=== PATIENT | female | born 1965 | race Caucasian/White ===

== ENCOUNTER 2017-06-05 12:50 | Outpatient (RCR) | payer OTHER, SELFPAY | END 2017-06-20 23:59 | LOC: NS 12:50 | PROVIDERS: Family Provider Family Medicine; PCP Family Medicine; Visit Provider Family Medicine | DX: E66.01 Morbid (severe) obesity due to excess calories (principal); Z68.41 Body mass index [BMI] 40.0-44.9, adult; Z71.3 Dietary counseling and surveillance | CPT/HCPCS: 97802 ==

== ENCOUNTER 2017-06-26 16:28 | Outpatient (RCR) | payer OTHER, SELFPAY | END 2017-06-26 16:29 | LOC: NS 16:28 | PROVIDERS: Family Provider Family Medicine; PCP Family Medicine; Visit Provider Family Medicine | DX: E66.01 Morbid (severe) obesity due to excess calories (principal); Z68.41 Body mass index [BMI] 40.0-44.9, adult; Z71.3 Dietary counseling and surveillance | CPT/HCPCS: 97803 ==

== ENCOUNTER → 2017-11-28 07:03 | Outpatient (CLI) | payer OTHER, SELFPAY ==
[2017-11-28 10:29] LABS: Absolute Lymphocyte Count 1.17 X10^3/ul (0.83-4.51); Absolute Neutrophil Count 3.6 X10^3/uL (2.0-7.7); Basophil# 0.04 X10^3/uL; Basophil% 0.7 % (0-1); Eosinophil# 0.35 X10^3/uL; Eosinophils% 6.4 % (0-5); Hematocrit 42.2 % (37-47); Hemoglobin 14.2 g/dl (12.0-15.0); Lymphocyte # 1.17 X10^3/ul (4.0); Lymphocyte % 21.5 % (19-41); Mean Corp Hgb Conc 33.6 g/gl (32-36); Mean Corpuscular Hgb 31.2 pg (27.0-32.0); Mean Corpuscular Volume 92.7 fL (81-99); Mean Platelet Vol. 10.2 fl (6.2-12.0); Monocyte% 5.5 % (0-10); Neutrophil # 3.57 X10^3/uL (2.7-7.7); Neutrophil % 65.7 % (47-70); Platelet Count 227 K/mm3 (150-450); RBC Distribution Width CV 12.8 % (11.6-14.6); RBC Distribution Width SD 42.5 fl (35.1-43.9); Red Blood Count 4.55 M/mm3 (4.2-5.4); White Blood Count 5.4 K/mm3 (4.4-11.0)
[2017-11-28 10:34] LABS: POSITIVE COUNT NO; POSITIVE DIFFERENTIAL NO; POSITIVE MORPHOLOGY NO
== END ==
PROVIDERS: Family Provider Family Medicine; PCP Family Medicine; Visit Provider Family Medicine
DX: I10 Essential (primary) hypertension (principal); E78.5 Hyperlipidemia, unspecified
CPT/HCPCS: 36415; 85025

== ENCOUNTER → 2018-02-28 16:44 | Outpatient (CLI) | payer OTHER, SELFPAY ==
--- NOTE | 2018-02-28 16:47 | BI_ITS ---
MAMMOGRAPHY - BILATERAL SCREENING REASON FOR EXAM: Female, 52 years old. Routine annual screening examination. PERTINENT HISTORY: Non-contributory. TECHNIQUE: Digital bilateral breast sulaiman (3D mammographic acquisition) in the CC and MLO projections. 2-D mediolateral oblique (MLO) and craniocaudad (CC) views of both breasts were obtained. CAD: Full Field Digital Mammography with Computer Added Detection was performed. COMPARISON: Comparison is made with prior study dated January 30, 2017 and January 21, 2016. FINDINGS: Breast Composition: The breasts are almost entirely fatty. There are no dominant masses or suspicious calcifications. No other significant abnormalities are identified. There has been no significant change since the prior study. BI/SCREENING MAMM (CAD), BILAT IMPRESSION: Stable bilateral screening mammogram. Yearly follow-up mammogram recommended. (A) ASSESSMENT CATEGORY: BIRADS Category 1: Negative. A letter regarding these results will be sent to the patient by the facility within 30 days. Approximately 10% of breast cancers are not detected by mammography. A normal mammogram should not delay biopsy of a clinically suspicious abnormality. [id number] Electronically Signed: Jamel Sanders MD at 8:04 EST Tel [phone], Service support ,
== END ==
PROVIDERS: Family Provider Family Medicine; PCP Family Medicine; Referring Provider Family Medicine; Visit Provider Family Medicine
DX: Z12.31 Encounter for screening mammogram for malignant neoplasm of breast (principal)
CPT/HCPCS: 77063; 77067

== ENCOUNTER 2018-08-05 23:20 | Emergency (ER) | payer OTHER, SELFPAY ==
[2018-05-15 06:45] VITALS: BMI 41.8
[2018-08-05 23:21] VITALS: BP 143/86; PULSE 98; RESP 16; TEMP 37; O2SAT 98; BMI 43.8
--- NOTE | 2018-08-05 23:50 | ED.DCSUM_ITS ---
- ER Visit Summary Date of Service: 08/05/18 Chief Complaint: Abdominal pain History of Present Illness: The patient is a 53 F presenting with left lower quadrant abdominal pain. She states this started yesterday. She has history of diverticulitis and states this feels similar. She has history of previous colon resection due to perforation and abscess in 2008. She denies nausea or vomiting. Denies diarrhea or constipation. Denies fever. Denies urinary complaints. Denies other symptoms. Physical Examination: Vitals are stable. Patient is afebrile. Alert no acute distress. HEENT exam is unremarkable. Neck is supple. Lungs are clear and equal bilaterally. Heart is regular rate and rhythm. Abdomen is soft left lower quadrant tenderness with no rebound or guarding Extremities are unremarkable. Skin is warm and dry. Remainder of exam is unremarkable. Emergency Department Course and Treatment: Patient was given Dilaudid, Zofran, IV fluids. CBC, chemistries unremarkable. CT abdomen pelvis is pending at this time and will be checked out to the nighttime physician. Disposition: Pending CT results Impression: Abdominal pain This note was generated with [employer] dictation software. It may contain incorrect words, spelling, and punctuation that were not noted in review of the chart prior to signing ED Disposition - Plan for ED Patient: Referrals: Ernesto Quigley MD [Primary Care Provider] -
[2018-08-05] MEDS: 0.9% Normal Saline 1,000 ML 1000 ML IV (23:56)
[2018-08-05] MEDS: Ondansetron 4 MG/2 ML Vial IV (23:56)
[2018-08-06] MEDS: HYDROmorphone 1 MG/ML Syringe IV (00:02)
[2018-08-06 00:16] LABS: Absolute Lymphocyte Count 1.53 X10^3/ul (0.83-4.51); Absolute Neutrophil Count 5.7 X10^3/uL (2.0-7.7); Basophil# 0.02 X10^3/uL; Basophil% 0.2 % (0-1); Eosinophil# 0.43 X10^3/uL; Eosinophils% 5.3 % (0-5); Hematocrit 41.9 % (37-47); Hemoglobin 14.4 g/dl (12.0-15.0); Lymphocyte # 1.53 X10^3/ul (4.0); Lymphocyte % 18.8 % (19-41); Mean Corp Hgb Conc 34.4 g/gl (32-36); Mean Corpuscular Hgb 30.6 pg (27.0-32.0); Mean Corpuscular Volume 89.1 fL (81-99); Mean Platelet Vol. 10.2 fl (6.2-12.0); Monocyte# 0.51 X10^3/uL; Monocyte% 6.3 % (0-10); Neutrophil # 5.65 X10^3/uL (2.7-7.7); Neutrophil % 69.3 % (47-70); Platelet Count 203 K/mm3 (150-450); RBC Distribution Width CV 12.6 % (11.6-14.6); RBC Distribution Width SD 40.1 fl (35.1-43.9); White Blood Count 8.2 K/mm3 (4.4-11.0)
[2018-08-06 00:25] LABS: POSITIVE COUNT NO; POSITIVE DIFFERENTIAL NO; POSITIVE MORPHOLOGY NO
[2018-08-06 00:33] LABS: Anion Gap 3 (5-15); BUN 10 mg/dL (7-18); BUN/Creat Ratio 13.4 RATIO (10-20); Chloride 105 mmol/L (98-107); Creatinine, Serum 0.75 mg/dL (0.55-1.02); EST Glomerular Filtration Rate 85 mL/min (>60); Est Glom Filt Rate - Afr Amer 103 mL/min (>60); Estimated Creatinine Clearance 82.42 ml/min; Glucose 97 mg/dL (74-106); Sodium Level 139 mmol/L (136-145)
[2018-08-06] MEDS: HYDROmorphone 0.5 MG/0.5 ML SYRINGE IV (00:37)
[2018-08-06 00:52] LABS: Mucous, Urine 0 SEEN /hpf (<or=2+); White Blood Cells 0 SEEN /hpf (0-5)
[2018-08-06 00:56] LABS: Color, Urine Yellow (Yellow); Glucose, Dipstick Normal (Normal); Ketone-Dipstick Negative (Negative); Leukocyte Esterase-Dipstick Negative /ul (Negative); Nitrite-Dipstick Negative (Negative); Occult Blood-Urine 10 /ul (Negative); Protein-Dipstick Negative (Negative); Urine Bilirubin Dipstick Negative (Negative); Urine Clarity Sl. Cloudy (Clear); Urine Urobilinogen Normal (Normal)
[2018-08-06 01:12] LABS: Bacteria RARE /hpf (None Seen); Red Blood Cells-Urine 0-5 SEEN /hpf (0-5); Squamous Epithelial Cells - UA 0-5 SEEN /hpf (5-10)
[2018-08-06] MEDS: Ondansetron 4 MG/2 ML Vial IV (01:16)
[2018-08-06 02:18] VITALS: RESP 18
--- NOTE | 2018-08-06 02:18 | ED.VISSUMM ---
- ER Visit Summary Date of Service: 08/06/18 Chief Complaint: [] History of Present Illness: The patient is a 53 F [] Physical Examination: [] Test Results: [] Emergency Department Course and Treatment: [] Treatment Plan: [] Disposition: [] Impression: [] This note was generated with [employer] dictation software. It may contain incorrect words, spelling, and punctuation that were not noted in review of the chart prior to signing ED Disposition - Plan for ED Patient: Disposition: Home or Assisted Living Instructions: ED Abdominal Pain Unkn Cause Prescriptions: Dicyclomine HCl [Bentyl] 20 mg PO TIDAC #20 cap Referrals: Ernesto Quigley MD [Primary Care Provider] - 3-5 Days if not improving
[2018-08-06 02:29] VITALS: BP 127/45; PULSE 80; RESP 18; O2SAT 93
--- NOTE | 2018-08-06 02:30 | ED.RN ---
Addendum entered by Roxane Gonzáles 08/06/18 02:31: 0430 IS THE TIME PT LEAVING. Original Note: PT PLANS TO SLEEP UNTIL 4AM AND THEN DIVE HERSELF HOME SINCE SHE RECIEVED DILAUDID.
--- NOTE | 2018-08-06 23:39 | CT_ITS ---
STUDY: CT ABDOMEN AND PELVIS WITH CONTRAST REASON FOR EXAM: Female, 53 years old. Left lower quadrant pain. History of diverticulitis. RADIATION DOSAGE (If Supplied By Facility): CTDIvol = ( 17.00 ) mGy, DLP = ( 1197.95 ) mGycm TECHNIQUE: Transaxial images were obtained from the dome of the diaphragm to the symphysis pubis with oral contrast. 100ML IV/Oral Isovue 370 was administered. Sagittal and coronal images were reconstructed. Individualized dose optimization techniques were used for this CT. COMPARISON: May 11, 2017. FINDINGS: The visualized lung bases are unremarkable. The visualized portions of the heart are within normal limits. Normal liver. There are surgical clips in the gallbladder fossa consistent with a prior cholecystectomy. Normal spleen. Normal pancreas. Normal bilateral adrenal glands. Normal right kidney. Normal left kidney. Normal visualized stomach. Normal small intestine. Distal descending/proximal sigmoid colon are not well distended limiting evaluation of wall thickening coronal image 72 and axial image 60. No pericolonic inflammatory changes. The appendix is visualized and appears normal. Surgical clips left hemipelvis. There is atherosclerotic calcification of the abdominal aorta with elongation and tortuosity, but without a demonstrated aneurysm. Normal inferior vena cava. Normal retroperitoneum. No intra-abdominal free air. Normal urinary bladder. Uterus is not enlarged. No adnexal masses seen. Normal abdominal wall. Diffuse degenerative changes of the lower thoracic and lumbar spine. CT/Abdomen/Pelvis WITH Contrast IMPRESSION: Limited evaluation of the colon at the junction of the distal descending and proximal sigmoid colon. Colon is otherwise normal. No colonic pericolonic inflammatory changes. No evidence of bowel obstruction. Degenerative changes of the lower thoracic and lumbar spine. Electronically Signed: Ha Sibley MD at 2:11 EDT , Service support ,
== END 2018-08-06 04:32 | disposition home or self-care (01) ==
PROVIDERS: Emergency Provider Emergency Medicine; Family Provider Family Medicine; PCP Family Medicine
DX: R10.32 Left lower quadrant pain (principal); R11.0 Nausea; I10 Essential (primary) hypertension; K21.9 Gastro-esophageal reflux disease without esophagitis; Z90.49 Acquired absence of other specified parts of digestive tract; Z72.0 Tobacco use
CPT/HCPCS: 74177; 80048; 81001; 85025; 96361; 96374; 96375; 96376; 99285; J7030; Q9967; A4216; J2405

== ENCOUNTER → 2018-10-09 10:27 | Outpatient (CLI) | payer OTHER, SELFPAY ==
[2018-10-09 10:25] VITALS: BMI 43.8
--- NOTE | 2018-10-09 10:29 | RAD_ITS ---
STUDY: X-RAY - RIGHT ANKLE REASON FOR EXAM: Female, 53 years old. Increasing pain and medial swelling. TECHNIQUE: 3 view(s) of the ankle. COMPARISON: None. FINDINGS: Normal visualized distal tibia and fibula. Normal medial and lateral malleoli. Normal tibiotalar articulation and ankle mortise. Plantar calcaneal spur. The visualized subtalar, talonavicular, calcaneocuboid and tarsal articulations are normal. Soft tissue swelling. RAD/Ankle min 3 Views IMPRESSION: Medial soft tissue swelling. Electronically Signed: Jamel Sanders, at 10:44 EDT , Service support ,
== END ==
PROVIDERS: Family Provider Family Medicine; PCP Family Medicine; Referring Provider Physician Assistant; Visit Provider Physician Assistant
DX: S99.911A Unspecified injury of right ankle, initial encounter (principal); X58.XXXA Exposure to other specified factors, initial encounter; Y93.9 Activity, unspecified; Y92.9 Unspecified place or not applicable; Y99.9 Unspecified external cause status
CPT/HCPCS: 73610

== ENCOUNTER → 2018-12-05 07:01 | Outpatient (CLI) | payer OTHER, SELFPAY ==
[2018-10-09 10:25] VITALS: BMI 43.8
[2018-12-05 10:31] LABS: Absolute Lymphocyte Count 1.25 X10^3/uL (0.83-4.51); Absolute Neutrophil Count 3.8 X10^3/uL (2.0-7.7); Basophil# 0.04 X10^3/uL; Basophil% 0.7 % (0-1); Eosinophil# 0.45 X10^3/uL; Eosinophils% 7.5 % (0-5); Hematocrit 45.4 % (37-47); Hemoglobin 14.8 g/dL (12.0-15.0); Lymphocyte # 1.25 X10^3/ul (4.0); Lymphocyte % 20.9 % (19-41); Mean Corp Hgb Conc 32.6 g/dL (32-36); Mean Corpuscular Volume 91.9 fL (81-99); Mean Platelet Vol. 10.6 fl (6.2-12.0); Monocyte# 0.39 X10^3/uL; Monocyte% 6.5 % (0-10); NRBC Flagged by Analyzer 0 % (0-5); Neutrophil # 3.82 X10^3/uL (2.7-7.7); Neutrophil % 64.1 % (47-70); Platelet Count 209 K/mm3 (150-450); RBC Distribution Width CV 12.6 % (11.6-14.6); RBC Distribution Width SD 42.5 fl (35.1-43.9); Red Blood Count 4.94 M/mm3 (4.2-5.4)
[2018-12-05 11:21] LABS: AST(SGOT) 14 U/L (15-37); Alanine Aminotransfer ALT/SGPT 19 U/L (13-56); Albumin, Serum 3.6 g/dL (3.2-5.0); Alkaline Phosphatase 75 U/L (45-117); Anion Gap 6 (5-15); BUN 14 mg/dL (7-18); Calcium,Total 9.3 mg/dL (8.5-10.1); Chloride 103 mmol/L (98-107); Cholesterol 149 mg/dL (200); EST Glomerular Filtration Rate 92 mL/min (>60); Est Glom Filt Rate - Afr Amer 111 mL/min (>60); Globulin 3.6 g/dL (2.2-4.2); Glucose 90 mg/dL (74-106); High Density Lipoprotein 49 mg/dL; Protein, Total 7.2 g/dL (6.4-8.2); Sodium Level 140 mmol/L (136-145); Triglycerides 90 mg/dL; Very Low Density Lipoprotein 18 mg/dL (5-40)
== END ==
PROVIDERS: Family Provider Family Medicine; PCP Family Medicine; Referring Provider Family Medicine; Visit Provider Family Medicine
DX: I10 Essential (primary) hypertension (principal); E78.5 Hyperlipidemia, unspecified; K58.9 Irritable bowel syndrome, unspecified; K21.9 Gastro-esophageal reflux disease without esophagitis
CPT/HCPCS: 36415; 80053; 80061; 85025

== ENCOUNTER → 2019-03-13 16:42 | Outpatient (CLI) | payer OTHER, SELFPAY ==
[2018-10-09 10:25] VITALS: BMI 43.8
--- NOTE | 2019-03-13 16:43 | BI_ITS ---
MAMMOGRAPHY - BILATERAL SCREENING REASON FOR EXAM: Female, 53 years old. Routine annual screening examination. PERTINENT HISTORY: Non-contributory. TECHNIQUE: Digital bilateral breast clemente (3D mammographic acquisition) in the CC and MLO projections. 2-D mediolateral oblique (MLO) and craniocaudad (CC) views of both breasts were obtained. CAD: Full Field Digital Mammography with Computer Added Detection was performed. COMPARISON: Comparison is made with prior examination dated February 28, 2018 and January 30, 2017. FINDINGS: Breast Composition: The breasts are almost entirely fatty. There are no dominant masses or suspicious calcifications. No other significant abnormalities are identified. There has been no significant change since the prior study. BI/SCREEN MAMM (CAD) W/CLEMENTE BILAT IMPRESSION: Stable bilateral screening mammogram. Yearly follow-up mammogram recommended. (A) ASSESSMENT CATEGORY: BIRADS Category 1: Negative. A letter regarding these results will be sent to the patient by the facility within 30 days. Approximately 10% of breast cancers are not detected by mammography. A normal mammogram should not delay biopsy of a clinically suspicious abnormality. [id number] Electronically Signed: Jamel Sanders, at 9:58 EST , Service support ,
== END ==
PROVIDERS: Family Provider Family Medicine; PCP Family Medicine; Referring Provider Family Medicine; Visit Provider Family Medicine
DX: Z12.31 Encounter for screening mammogram for malignant neoplasm of breast (principal)
CPT/HCPCS: 77063; 77067

== ENCOUNTER 2019-04-13 14:27 | Emergency (ER) | payer OTHER, SELFPAY ==
[2018-10-09 10:25] VITALS: BMI 43.8
[2019-04-13 14:28] VITALS: BP 163/86; PULSE 115; RESP 18; TEMP 36.8; O2SAT 96; BMI 46.4
--- NOTE | 2019-04-13 14:42 | RAD_ITS ---
STUDY: X-RAY CHEST REASON FOR EXAM: Female, 53 years old. Cough TECHNIQUE: Frontal and lateral views of the chest COMPARISON: None. FINDINGS: The lungs are clear. There are no pleural effusions. There is no pneumothorax. The heart is normal in size. The visualized osseous structures are within normal limits. RAD/Chest PA and Lateral IMPRESSION: No acute thoracic pathology. Electronically Signed: Oziel Amado, at 15:43 EST Tel , Service support ,
[2019-04-13] MEDS: 0.9% Normal Saline 1,000 ML 1000 ML IV (15:02)
[2019-04-13 15:03] VITALS: BP 135/91; PULSE 91
[2019-04-13 15:32] LABS: Anion Gap 5 (5-15); BUN 14 mg/dL (7-18); BUN/Creat Ratio 11.9 RATIO (10-20); Calcium,Total 8.9 mg/dL (8.5-10.1); Chloride 105 mmol/L (98-107); Creatinine, Serum 1.18 mg/dL (0.55-1.02); EST Glomerular Filtration Rate 50 mL/min (>60); Est Glom Filt Rate - Afr Amer 61 mL/min (>60); Estimated Creatinine Clearance 48.47 ml/min; Glucose 127 mg/dL (74-106); Potassium 3.5 mmol/L (3.5-5.1); Sodium Level 141 mmol/L (136-145)
[2019-04-13 15:44] LABS: Absolute Lymphocyte Count 1.37 X10^3/uL (0.83-4.51); Absolute Neutrophil Count 5.6 X10^3/uL (2.0-7.7); Basophil# 0.05 X10^3/uL; Basophil% 0.6 % (0-1); Eosinophil# 0.26 X10^3/uL; Eosinophils% 3.4 % (0-5); Hematocrit 43.6 % (37-47); Hemoglobin 14.4 g/dL (12.0-15.0); Lymphocyte # 1.37 X10^3/ul (4.0); Lymphocyte % 17.7 % (19-41); Mean Corpuscular Hgb 30.1 pg (27.0-32.0); Mean Corpuscular Volume 91.2 fL (81-99); Mean Platelet Vol. 10.2 fl (6.2-12.0); Monocyte# 0.41 X10^3/uL; Monocyte% 5.3 % (0-10); NRBC Flagged by Analyzer 0 % (0-5); Neutrophil # 5.64 X10^3/uL (2.7-7.7); Neutrophil % 72.9 % (47-70); Platelet Count 231 K/mm3 (150-450); RBC Distribution Width CV 12.1 % (11.6-14.6); RBC Distribution Width SD 40.8 fl (35.1-43.9); Red Blood Count 4.78 M/mm3 (4.2-5.4); White Blood Count 7.7 K/mm3 (4.4-11.0)
--- NOTE | 2019-04-13 16:22 | ED.VISSUMM ---
- ER Visit Summary Date of Service: 04/13/19 Chief Complaint: Not feeling well History of Present Illness: The patient is a 53 F who presents with not feeling well for the past week. Patient states that is gradually gotten worse. Patient states she feels shaky and off balance. Patient admits to some subjective chills but denies any fevers. Patient admits to a cough. Patient states she has been having some nausea but denies any vomiting. Patient states she has some pain in her shoulders and in her neck. Patient states she feels weak and lightheaded at times. Physical Examination: Vital signs are stable. Patient is afebrile. Patient is in no acute distress. Oral mucosa is pink and moist. Neck is supple. Trachea is midline. There is no JVD. Heart was regular rate and rhythm. Lungs are clear and equal bilaterally. Abdomen is soft. Bowel sounds are normal. There is no tenderness. Cranial nerves II through XII are intact. There are no focal motor or sensory deficits noted. Test Results: CBC and basic metabolic profile were within normal limits. PA and lateral chest x-ray was obtained. There is no acute cardiopulmonary process. This is interpreted by the radiologist and myself. Emergency Department Course and Treatment: Patient was advised of the results. Patient was instructed to follow-up with her primary care physician in 5 to 7 days. Patient was instructed to drink plenty of fluids. Patient understood and was agreeable with the plan. All questions were answered. Disposition: Discharge home Impression: Viral illness This note was generated with [employer] dictation software. It may contain incorrect words, spelling, and punctuation that were not noted in review of the chart prior to signing ED Disposition - Plan for ED Patient: Disposition: Home or Assisted Living Diagnosis: Viral illness Instructions: VIRAL SYNDROME (Adult) Referrals: Ernesto Quigley MD [Primary Care Provider] - 5-7 Days
== END 2019-04-13 16:35 | disposition home or self-care (01) ==
PROVIDERS: Emergency Provider Emergency Medicine; Family Provider Family Medicine; PCP Family Medicine
DX: B34.9 Viral infection, unspecified (principal); R05 Cough; R11.0 Nausea; R42 Dizziness and giddiness; I10 Essential (primary) hypertension; M54.2 Cervicalgia; M25.512 Pain in left shoulder; M25.511 Pain in right shoulder; K21.9 Gastro-esophageal reflux disease without esophagitis; E66.9 Obesity, unspecified; Z72.0 Tobacco use
CPT/HCPCS: 71046; 80048; 85025; 96360; 96361; 99283; J7030

== ENCOUNTER 2019-04-25 17:03 | Emergency (ER) | payer OTHER, SELFPAY ==
[2019-04-25 17:04] VITALS: BP 163/86; PULSE 91; RESP 16; TEMP 36.4; O2SAT 98; BMI 46.1
[2019-04-25 18:19] VITALS: BP 139/71; PULSE 79; RESP 18; O2SAT 96
--- NOTE | 2019-04-25 18:25 | EKG12_ITS ---
Test Reason : GEN ILL Blood Pressure : / mmHG Vent. Rate : 071 BPM Atrial Rate : 071 BPM P-R Int : 154 ms QRS Dur : 082 ms QT Int : 406 ms P-R-T Axes : 047 011 041 degrees QTc Int : 441 ms Normal sinus rhythm Normal ECG Confirmed by MELONY GOMEZ, PANDA ([id number]), news copy editor MICHAEL CRABTREE ([id number]) on 04/28/2019 12:54:58 PM Referred By: Confirmed By:PANDA TY MD
--- NOTE | 2019-04-25 18:33 | ED.RN ---
NO OLDS EKGS IN MUSE
--- NOTE | 2019-04-25 18:44 | ED.VISSUMM ---
- ER Visit Summary Date of Service: 04/25/19 Chief Complaint: Nausea History of Present Illness: The patient is a 53 F presenting with nausea. Patient states she was seen in the ED on April 13. At that time she was diagnosed with a viral syndrome. She states that her symptoms have continued. She complains of cough, nausea. She has had diarrhea. She denies vomiting. Denies abdominal pain. Denies chest pain or shortness of breath. She states she overall just does not feel well. Denies other complaints. Physical Examination: Vitals are stable. Patient is afebrile. Alert no acute distress. HEENT exam is unremarkable. Neck is supple. Lungs are clear and equal bilaterally. Heart is regular rate and rhythm. Abdomen is soft nontender nondistended. No guarding or rebound Extremities are unremarkable. Skin is warm and dry. No focal neurologic deficit. Remainder of exam is unremarkable. Emergency Department Course and Treatment: EKG is sinus rhythm rate of 71 with no acute ischemic changes. Patient was given IV fluids, Zofran. CBC, chemistries unremarkable. Liver lipase are normal. Urinalysis unremarkable. Troponin is negative. Abdominal x-ray shows question early or incomplete small bowel obstruction. CT abdomen pelvis shows colonic diverticulosis with small hiatal hernia. No sign of bowel obstruction. On reevaluation, patient is resting comfortably. She is given a prescription for Zofran for home. She is advised to follow up with her primary care physician. Advised return to ED if worsening complaints. Disposition: Discharge home Impression: Nausea, diarrhea This note was generated with [employer] dictation software. It may contain incorrect words, spelling, and punctuation that were not noted in review of the chart prior to signing ED Disposition - Plan for ED Patient: Instructions: DIARRHEA, Viral (Child) (Adult) Prescriptions: Ondansetron [Zofran Odt] 4 mg PO Q8H PRN PRN #10 tab PRN Reason: Nausea Prescription Printed Referrals: Ernesto Quigley MD [Primary Care Provider] -
[2019-04-25] MEDS: Ondansetron 4 MG/2 ML Vial IV (18:45)
[2019-04-25 19:00] LABS: Bacteria 0 SEEN /hpf (None Seen); Mucous, Urine 0 SEEN /hpf (<or=2+); White Blood Cells 0 SEEN /hpf (0-5)
[2019-04-25 19:14] LABS: Absolute Lymphocyte Count 1.61 X10^3/uL (0.83-4.51); Absolute Neutrophil Count 6.6 X10^3/uL (2.0-7.7); Basophil# 0.04 X10^3/uL; Basophil% 0.4 % (0-1); Eosinophil# 0.23 X10^3/uL; Eosinophils% 2.6 % (0-5); Hematocrit 46.1 % (37-47); Hemoglobin 15.4 g/dL (12.0-15.0); Lymphocyte # 1.61 X10^3/ul (4.0); Lymphocyte % 17.9 % (19-41); Mean Corp Hgb Conc 33.4 g/dL (32-36); Mean Corpuscular Volume 89.9 fL (81-99); Mean Platelet Vol. 9.8 fl (6.2-12.0); Monocyte# 0.49 X10^3/uL; Monocyte% 5.4 % (0-10); NRBC Flagged by Analyzer 0 % (0-5); Neutrophil # 6.61 X10^3/uL (2.7-7.7); Neutrophil % 73.5 % (47-70); Platelet Count 242 K/mm3 (150-450); RBC Distribution Width CV 12.2 % (11.6-14.6); RBC Distribution Width SD 40.4 fl (35.1-43.9); Red Blood Count 5.13 M/mm3 (4.2-5.4)
[2019-04-25 19:15] LABS: Color, Urine Yellow (Yellow); Glucose, Dipstick Normal (Normal); Ketone-Dipstick Negative (Negative); Leukocyte Esterase-Dipstick Negative /ul (Negative); Nitrite-Dipstick Negative (Negative); Occult Blood-Urine 10 /ul (Negative); Protein-Dipstick Negative (Negative); Urine Bilirubin Dipstick Negative (Negative); Urine Clarity Sl. Cloudy (Clear); Urine Urobilinogen Normal (Normal)
[2019-04-25 19:26] LABS: ALB/GLOB Ratio 1.1 RATIO (0.9-2.4); AST(SGOT) 17 U/L (15-37); Alanine Aminotransfer ALT/SGPT 22 U/L (13-56); Albumin, Serum 4.1 g/dL (3.2-5.0); Alkaline Phosphatase 68 U/L (45-117); Anion Gap 7 (5-15); BUN 13 mg/dL (7-18); BUN/Creat Ratio 14.9 RATIO (10-20); Calcium,Total 9.4 mg/dL (8.5-10.1); Chloride 101 mmol/L (98-107); Creatinine, Serum 0.87 mg/dL (0.55-1.02); EST Glomerular Filtration Rate 71 mL/min (>60); Est Glom Filt Rate - Afr Amer 86 mL/min (>60); Estimated Creatinine Clearance 65.74 ml/min; Globulin 3.7 g/dL (2.2-4.2); Glucose 102 mg/dL (74-106); Lipase 71 U/L (73-393); Potassium 3.8 mmol/L (3.5-5.1); Protein, Total 7.8 g/dL (6.4-8.2); Sodium Level 136 mmol/L (136-145)
[2019-04-25 19:29] LABS: Red Blood Cells-Urine 0-5 SEEN /hpf (0-5); Squamous Epithelial Cells - UA 0-5 SEEN /hpf (5-10)
--- NOTE | 2019-04-25 19:40 | RAD_ITS ---
STUDY: X-RAY - ACUTE ABDOMINAL SERIES REASON FOR EXAM: Female, 53 years old. Diagnosed with viral syndrome on April 13. No improvement. Nausea and vomiting. History of diverticulitis with prior colon surgery. TECHNIQUE: Single view of the chest. Supine, and erect view(s) of the abdomen were obtained. COMPARISON: Chest, April 13, 2019. CT the abdomen and pelvis, August 06, 2018. FINDINGS: The lungs are clear and expanded. No new infiltrate or mass. Normal size heart. Normal mediastinum and freddy. Normal visualized pulmonary arteries. Normal visualized aortic arch and descending thoracic aorta. There is a non-specific bowel gas pattern. Air is seen throughout nondistended colon. There is dilated loops of small bowel in the central abdomen. There is no free air. The liver appears enlarged. There is evidence of prior cholecystectomy. There are diffuse degenerative changes of the visualized lumbar spine. RAD/Acute Abdomen Inc Chest IMPRESSION: Question early or incomplete small bowel obstruction. Electronically Signed: Miles Higgins DO at 20:04 EST Tel [phone], Service support ,
--- NOTE | 2019-04-25 20:40 | CT_ITS ---
STUDY: CT ABDOMEN AND PELVIS WITH CONTRAST REASON FOR EXAM: Female, 53 years old. ABD PAIN/?SBO. Hx of sigmoid resection d/t diverticulitis and cholecystectomy RADIATION DOSAGE (If Supplied By Facility): CTDIvol = ( 18.74 ) mGy, DLP = ( 1308.20 ) mGycm TECHNIQUE: Transaxial images were obtained from the dome of the diaphragm to the symphysis pubis without oral contrast. Oral and amp; IV Gastrografin and amp; 100mL Isovue-370 was administered. Sagittal and coronal images were reconstructed. Individualized dose optimization techniques were used for this CT. COMPARISON: None. FINDINGS: The visualized lung bases are unremarkable. The visualized portions of the heart are within normal limits. Normal liver. Status post cholecystectomy. No significant dilatation of the extrahepatic biliary system. Normal spleen. Normal pancreas. Normal bilateral adrenal glands. Normal right kidney. Normal left kidney. Small hiatal hernia. Normal small intestine. Mild diverticulosis of the colon. The appendix is visualized and appears normal. Calcified abdominal aorta. Normal inferior vena cava. Normal retroperitoneum. Normal urinary bladder. Normal abdominal wall. Mild degenerative vertebral changes. CT/Abdomen/Pelvis WITH Contrast IMPRESSION: Colonic diverticulosis with small hiatal hernia. No sign of bowel obstruction. Electronically Signed: Mukesh Newell DO at 23:16 EST Tel [phone], Service support ,
[2019-04-25] MEDS: proMETHazine 25 MG/ML Syringe 6.25 MG IV (20:49)
[2019-04-25 20:51] VITALS: BP 135/76; PULSE 74; RESP 18; O2SAT 95
[2019-04-25] MEDS: LORazepam 0.5 MG Tablet PO (23:01)
[2019-04-25 23:02] VITALS: RESP 18
--- NOTE | 2019-04-26 00:39 | ED.DEP ---
ED Disposition - Plan for ED Patient: Instructions: DIARRHEA, Viral (Child) (Adult) Prescriptions: Ondansetron [Zofran Odt] 4 mg PO Q8H PRN PRN #10 tablet PRN Reason: Nausea Referrals: Ernesto Quigley MD [Primary Care Provider] -
[2019-04-26 00:58] VITALS: BP 124/86; PULSE 76; RESP 18; O2SAT 92
== END 2019-04-26 01:01 | disposition home or self-care (01) ==
PROVIDERS: Emergency Provider Emergency Medicine; Family Provider Family Medicine; PCP Family Medicine
DX: R11.0 Nausea (principal); R19.7 Diarrhea, unspecified; K56.600 Partial intestinal obstruction, unspecified as to cause; K57.30 Diverticulosis of large intestine without perforation or abscess without bleeding; K44.9 Diaphragmatic hernia without obstruction or gangrene; I10 Essential (primary) hypertension; Z72.0 Tobacco use; Z79.899 Other long term (current) drug therapy
CPT/HCPCS: 74022; 74177; 80053; 81001; 83690; 84484; 85025; 87804; 93005; 96361; 96374; 96375; 99283; J7040; Q9967; A4216; J2405

== ENCOUNTER 2019-04-28 16:04 | Emergency (ER) | payer OTHER, SELFPAY ==
[2019-04-28 16:05] VITALS: BP 123/89; PULSE 89; RESP 17; TEMP 36.4; O2SAT 99; BMI 45.4
--- NOTE | 2019-04-28 17:03 | EKG12_ITS ---
Test Reason : AB PAIN Blood Pressure : / mmHG Vent. Rate : 066 BPM Atrial Rate : 066 BPM P-R Int : 158 ms QRS Dur : 082 ms QT Int : 412 ms P-R-T Axes : 028 010 042 degrees QTc Int : 431 ms Normal sinus rhythm Normal ECG Confirmed by KEYA GOMEZ, MARGARET ([id number]), senior editor DRISS PERAZA ([id number]) on 04/30/2019 10:59:42 AM Referred By: CARLOZ Confirmed By:MARGARET LAURA MD
--- NOTE | 2019-04-28 17:08 | ED.VIS.GI ---
History of Present Illness Chief Complaint: Abd Pain Informant: Patient - Abdominal Pain/Flank Pain Onset: Days Context: Gradual Onset Timing: Continuous Quality: Cramping Location: Diffuse - Nausea/Vomiting/Emesis GI Symptom: Nausea - resolved - Diarrhea/Melena/Hematochezia GI Symptom: Diarrhea Onset: Days Stool Quality: Loose. Negative for: Black, Maroon, JUDY per rectum Narrative: Patient is a 53-year-old female with history of diverticulitis status post colonic resection presenting with continued abdominal pain. Patient had abdominal pain for the past week. She is been seen in the ER twice for this pain. She is had normal work-ups prior to this. She was diagnosed with a viral syndrome. She is been taking the Bentyl at home with some improvement of her pain. She notes her nausea and vomiting have resolved. She is not been nauseous for the past 2 to 3 days. She is continued to have diffuse cramping abdominal pain with diarrhea. She did take Imodium today prior to going to work. She states yesterday she had 5-6 episodes of diarrhea. She denies any black or blood in her stool. Because she is so gassy she was concerned there could be something wrong with her. She is also concerned she could have a small bowel obstruction even though she does not have a history of [address] normal CT 3 days ago. Patient denies any change in her symptoms. She denies any other complaints at this time. 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 She did not want a wait that long in case there is something seriously wrong with her. Past Medical History - Allergies and Home Meds Allergies/Adverse Reactions: Allergies morphine Allergy (Verified 04/28/19 16:05) Hives naproxen Allergy (Verified 04/28/19 16:05) Hives Primary Care Physician: Ernesto Quigley MD [Primary Care Provider] - Past Medical History: - - Diverticulitis Surgical History: - - Colon resection secondary to sigmoid diverticulitis, Cholecystectomy. Smoking Status: Current every day smoker Review of Systems General: Denies: Chills, Fever, Sweats Eyes: Denies: Visual changes - bilaterally, Diplopia ENT: Denies: Rhinorrhea, Sore throat Cardiovascular: Denies: Chest pain, Palpitations Respiratory: Denies: Dyspnea, Cough, Dyspnea on exertion Gastrointestinal: Reports: Abdominal pain, Nausea, Diarrhea. Denies: Vomiting, Melena, Hematochezia Genitourinary: Denies: Dysuria, Hematuria, Frequency Musculoskeletal: Denies: Back pain, Extremity Pain Skin: Denies: Rash, Wounds Neurological: Denies: Headache, Weakness, Numbness Psych: Reports: Anxiety Physical Exam Vital Signs/Narrative: Vital Signs Temp Pulse Resp BP Pulse Ox 04/28/19 16:05 97.5 F L 89 17 123/89 H 99 Inital Vital Signs reviewed: Yes General: Well nourished, Well developed, No Acute Distress Head: Normocephalic, Atraumatic Eyes: Perrl, EOMI ENT: Moist mucous membranes, No rhinorrhea Neck: Supple, Nontender Cardiovascular: Regular rate, Regular rhythm, No murmurs Respiratory: No distress, CTA bilaterally, Chest nontender Abdomen: Soft, Nontender, Nondistended, Hyperactive bowel sounds. Negative for: Tender, Guarding Back: Nontender, Normal Inspection Extremities: Nontender, No edema Skin: Normal color, No rash Neurological: Alert, Oriented x3, Cranial nerves II-XII grossly intact, Normal Strength, Normal Sensation Psychological: Normal affect, Normal Mood Diagnostic/Tx/Re-eval Clinical Impression(s) from Imaging Studies Acute Abdomen Series 04/28/19 17:40 IMPRESSION: Clear lungs. No bowel obstruction. Electronically Signed: Caleb Portillo, at 18:20 EST Tel , Service support , Laboratory Data 04/28/19 04/28/19 04/28/19 17:30 17:50 17:50 WBC 8.7 RBC 4.96 Hgb 15.2 H Hct 44.9 MCV 90.5 MCH 30.6 MCHC 33.9 RDW Std Deviation 39.7 RDW Coeff of Winsome 12.0 Plt Count 236 MPV 10.5 Immature Gran % (Auto) 0.200 Neut % (Auto) 76.5 H Lymph % (Auto) 15.5 L [place] % (Auto) 5.6 Eos % (Auto) 1.7 Baso % (Auto) 0.5 Absolute Neuts (auto) 6.7 Absolute Lymphs (auto) 1.35 Nucleated RBC % 0 Sodium 134 L Potassium 3.7 Chloride 100 Carbon Dioxide 31.0 Anion Gap 3 L BUN 9 Creatinine 0.83 Estim Creat Clear Calc 68.91 Est GFR (MDRD) Af Amer 92 Est GFR (MDRD) Non-Af 76 BUN/Creatinine Ratio 10.8 Glucose 101 Calcium 9.6 Total Bilirubin 0.50 AST 17 ALT 26 Alkaline Phosphatase 63 Troponin I < 0.015 Total Protein 7.8 Albumin 4.2 Globulin 3.6 Albumin/Globulin Ratio 1.2 Lipase 64 L Urine Color Yellow Urine Clarity Clear Urine pH 6.5 Ur Specific [place] 1.005 Urine Protein Negative Urine Glucose (UA) Normal Urine Ketones 5 H Urine Occult Blood 10 H Urine Nitrite Negative Urine Bilirubin Negative Urine Urobilinogen Normal Ur Leukocyte Esterase Negative Urine RBC 0-5 SEEN Urine WBC 0 SEEN Ur Squamous Epith Cells 0-5 SEEN Urine Bacteria 0 SEEN Urine Mucus 0 SEEN - Rhythm Strip Rhythm Strip: Sinus Rhythm Rate: 66 Ectopy: None - EKG Initial EKG Interpretation: Sinus Rhythm, - - Rate of [address] segments Normal axis Unchanged compared to prior EKG 3 days ago - Medical Decision Making Patient is evaluated for recurrent cramping abdominal pain and diarrhea. She took Imodium today and her diarrhea has improved. She appears nontoxic in no acute distress. Patient seems to be much more anxious about a possible small bowel obstruction than anything else. She is afebrile with normal vital signs. Her abdomen is soft and nontender. She has active bowel sounds. I have a low suspicion for small bowel obstruction especially given the fact that she is still passing gas and had a normal CT of her abdomen pelvis 3 days ago. At that time she was diagnosed likely a viral syndrome. I agree that that likely was the diagnosis. Patient does not want a repeat CT and I do not think a repeat CT would be indicated. Her CBC and CMP are unremarkable. Because of her diffuse pain and age I did check an EKG, chest x-ray and troponin. These are all normal. I did order an acute abdominal series which does not show any obstructive pattern. Patient has been receiving pain control with Bentyl which she has at home. She is agreeable with plan for outpatient follow-up. She has appointment to see her GI doctor tomorrow. Patient is counseled on signs and symptoms requiring return to the emergency room. Patient verbalizes agreement and understand this plan. Patient discharged home in stable and improved condition. ED Disposition - Plan for ED Patient: Disposition: Home or Assisted Living Diagnosis: Abdominal pain Instructions: ABDOMINAL PAIN, Unknown Cause, (Female) Referrals: Ernesto Quigely MD [Primary Care Provider] - Additional Instructions: Your lab work and x-ray were normal. You do not have signs of small bowel obstruction. Do not have signs of an acute infection based on your blood work. I believe you are safe to follow-up with your GI doctor tomorrow.
--- NOTE | 2019-04-28 17:40 | RAD_ITS ---
STUDY: X-RAY - ACUTE ABDOMINAL SERIES REASON FOR EXAM: Female, 53 years old. Pain TECHNIQUE: Single view of the chest. Supine, 3 view(s) of the abdomen were obtained. COMPARISON: X-ray chest April 13, 2019 FINDINGS: The lungs are clear. There are no pleural effusions. There is no pneumothorax. The heart is normal in size. There is no bowel obstruction. There is air and stool to the level of the rectum. The visualized osseous structures are within normal limits. RAD/Acute Abdomen Inc Chest IMPRESSION: Clear lungs. No bowel obstruction. Electronically Signed: Caleb Portillo, at 18:20 EST Tel , Service support ,
[2019-04-28 17:41] LABS: Bacteria 0 SEEN /hpf (None Seen); Mucous, Urine 0 SEEN /hpf (<or=2+); White Blood Cells 0 SEEN /hpf (0-5)
[2019-04-28 17:58] LABS: Color, Urine Yellow (Yellow); Glucose, Dipstick Normal (Normal); Ketone-Dipstick 5 mg/dl (Negative); Leukocyte Esterase-Dipstick Negative /ul (Negative); Nitrite-Dipstick Negative (Negative); Occult Blood-Urine 10 /ul (Negative); Protein-Dipstick Negative (Negative); Specific Gravity, Urine 1.005 (1.002-1.030); Urine Bilirubin Dipstick Negative (Negative); Urine Clarity Clear (Clear); Urine Urobilinogen Normal (Normal); Urine pH 6.5 (5.0 - 8.0)
[2019-04-28] MEDS: 0.9% Normal Saline 1,000 ML 1000 ML IV (18:13)
[2019-04-28 18:41] LABS: Red Blood Cells-Urine 0-5 SEEN /hpf (0-5); Squamous Epithelial Cells - UA 0-5 SEEN /hpf (5-10)
[2019-04-28 18:43] LABS: Absolute Lymphocyte Count 1.35 X10^3/uL (0.83-4.51); Absolute Neutrophil Count 6.7 X10^3/uL (2.0-7.7); Basophil# 0.04 X10^3/uL; Basophil% 0.5 % (0-1); Eosinophil# 0.15 X10^3/uL; Eosinophils% 1.7 % (0-5); Hematocrit 44.9 % (37-47); Hemoglobin 15.2 g/dL (12.0-15.0); Lymphocyte # 1.35 X10^3/ul (4.0); Lymphocyte % 15.5 % (19-41); Mean Corp Hgb Conc 33.9 g/dL (32-36); Mean Corpuscular Hgb 30.6 pg (27.0-32.0); Mean Corpuscular Volume 90.5 fL (81-99); Mean Platelet Vol. 10.5 fl (6.2-12.0); Monocyte# 0.49 X10^3/uL; Monocyte% 5.6 % (0-10); NRBC Flagged by Analyzer 0 % (0-5); Neutrophil # 6.65 X10^3/uL (2.7-7.7); Neutrophil % 76.5 % (47-70); Platelet Count 236 K/mm3 (150-450); RBC Distribution Width SD 39.7 fl (35.1-43.9); Red Blood Count 4.96 M/mm3 (4.2-5.4); White Blood Count 8.7 K/mm3 (4.4-11.0)
[2019-04-28 18:45] LABS: ALB/GLOB Ratio 1.2 RATIO (0.9-2.4); AST(SGOT) 17 U/L (15-37); Alanine Aminotransfer ALT/SGPT 26 U/L (13-56); Albumin, Serum 4.2 g/dL (3.2-5.0); Alkaline Phosphatase 63 U/L (45-117); Anion Gap 3 (5-15); BUN 9 mg/dL (7-18); BUN/Creat Ratio 10.8 RATIO (10-20); Calcium,Total 9.6 mg/dL (8.5-10.1); Chloride 100 mmol/L (98-107); Creatinine, Serum 0.83 mg/dL (0.55-1.02); EST Glomerular Filtration Rate 76 mL/min (>60); Est Glom Filt Rate - Afr Amer 92 mL/min (>60); Estimated Creatinine Clearance 68.91 ml/min; Globulin 3.6 g/dL (2.2-4.2); Glucose 101 mg/dL (74-106); Lipase 64 U/L (73-393); Potassium 3.7 mmol/L (3.5-5.1); Protein, Total 7.8 g/dL (6.4-8.2); Sodium Level 134 mmol/L (136-145)
[2019-04-28 20:53] VITALS: BP 128/86; PULSE 82; RESP 16; O2SAT 97
== END 2019-04-28 20:55 | disposition home or self-care (01) ==
PROVIDERS: Emergency Provider Emergency Medicine; Family Provider Family Medicine; PCP Family Medicine
DX: R10.9 Unspecified abdominal pain (principal); R19.7 Diarrhea, unspecified; F17.200 Nicotine dependence, unspecified, uncomplicated; Z79.899 Other long term (current) drug therapy; Z87.19 Personal history of other diseases of the digestive system; Z90.49 Acquired absence of other specified parts of digestive tract
CPT/HCPCS: 74022; 80053; 81001; 83690; 84484; 85025; 93005; 96360; 96361; 99285; J7030; A4216

== ENCOUNTER 2019-05-09 13:12 | Emergency (ER) | payer OTHER, SELFPAY ==
[2019-05-09 13:13] VITALS: BP 171/96; PULSE 82; RESP 18; TEMP 36.3; O2SAT 100; BMI 44.5
[2019-05-09 13:15] VITALS: BP 171/96; PULSE 80; RESP 18; TEMP 36.3; O2SAT 100
--- NOTE | 2019-05-09 13:32 | EKG12_ITS ---
Test Reason : DIZZINESS Blood Pressure : / mmHG Vent. Rate : 067 BPM Atrial Rate : 067 BPM P-R Int : 158 ms QRS Dur : 088 ms QT Int : 418 ms P-R-T Axes : -09 013 032 degrees QTc Int : 441 ms Normal sinus rhythm Normal ECG Confirmed by MELONY GOMEZ, PANDA ([id number]), medical editor CHICHI KEBEDE ([id number]) on 05/13/2019 9:04:36 AM Referred By: AMOS Confirmed By:PANDA TY MD
--- NOTE | 2019-05-09 13:33 | CT_ITS ---
STUDY: CTA HEAD AND NECK WITH CONTRAST REASON FOR EXAM: Female, 53 years old. Dizziness, trouble concentrating, fatigue, off balance x 3 weeks. Hx hypertension. RADIATION DOSAGE (If Supplied By Facility): CTDIvol = ( 28.71 ) mGy, DLP = ( 1561.50 ) mGycm TECHNIQUE: CT angiography was performed with a multi-detector CT scanner. Data acquisition was obtained from the skull base through the vertex following intravenous administration of 100mL Isovue-370. MIP images were reconstructed from the axial data set. Post-processing of the angiographic images was performed, with multiplanar reformation and 3D reconstruction. Individualized dose optimization techniques were used for this CT. COMPARISON: No relevant priors. FINDINGS: Normal bilateral petrous carotid arteries. There is calcified plaque formation of the right cavernous carotid artery, without a cross-sectional luminal stenosis. Normal left cavernous carotid artery with a normal supraclinoid bifurcation. The right A1 is hypoplastic compared to the left stable since the prior MRI January 02, 2017. Normal left A1 segments of the anterior cerebral artery. Normal intact anterior communicating artery (ACOM). There is a suggestion of takeoff versus a comm. from the left side of the A1 segment for the age to stable compared to prior study. Normal right M1 and M2 segments of the middle cerebral arteries, with a normal M1 bifurcation. Normal left M1 and M2 segments of the middle cerebral arteries, with a normal M1 bifurcation. 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 Normal left posterior communicating artery (PCOM). There is a small atretic right vertebral artery with a dominant left vertebral artery. Normal basilar artery with a normal basilar bifurcation. The visualized bilateral superior cerebellar (SCA) arteries are normal. Normal bilateral P1, P2 and visualized P3 segments of the posterior cerebral arteries. There is no demonstrated aneurysm of the [place]. There is mild periventricular white matter low attenuation. The suggestive of chronic small vessel ischemic change. AORTIC ARCH: Normal visualized aortic arch. Normal origins of the brachiocephalic, left common carotid, and left subclavian arteries. RIGHT CAROTID ARTERIES: Normal right common carotid artery (CCA). There is mild soft plaque formation. There is mild atherosclerotic plaque formation of the origin of the right internal carotid artery with less than 50% cross sectional diameter stenosis. There is a tortuous hairpin turn within the right side distal internal carotid arteries cervical carotid artery best seen image #8 of the reformatted 3-D images series 222. Normal origin of the right external carotid artery (ECA). LEFT CAROTID ARTERIES: Normal left common carotid artery (CCA). There is mild atherosclerotic plaque formation with minimal narrowing of the left carotid bulb. There is mild atherosclerotic plaque formation of the origin of the left internal carotid artery with less than 50% cross sectional diameter stenosis. There is atherosclerotic tortuous elongation of the cervical portion of the left internal carotid artery. Normal origin of the left external carotid artery (ECA). There is incidental visualization of a small right thyroid cyst measuring 4.8 mm. VERTEBRAL ARTERIES: There is tortuosity of the visualized vertebral arteries without evidence of stenosis. This is especially seen at the level of C2-C3 with there is a mildly narrowed tortuous appearance of the right vertebral artery. The left vertebral artery is dominant compared to the right. CT/CTA Head AND Neck W/ Contrast IMPRESSION: CT angiogram of the neck: Less than 50% stenosis of the bilateral internal carotid arteries there is soft plaque and tortuosity. Of note is a hairpin turn in the right side carotid. CT angiogram head Stable appearing angiogram and compared to prior flow voids on the MRI. Findings suggest chronic involutional change. Electronically Signed: Magaly Carter MD at 15:58 EST Tel , Service support ,
--- NOTE | 2019-05-09 13:34 | ED.VIS.GEN ---
History of Present Illness Chief Complaint: General Illness Informant: Patient Onset: Month(s) Context: Gradual Onset Timing: Waxes and wanes Narrative: Presents with complaint of just not feeling well for the past month. She feels very weak. She has had cloudy thoughts. She was in to the ER 3 times in the last month with similar complaints. It was initially felt that she had a viral infection. Patient believes she actually had an IBS flare and that seems to be improving. Although her abdominal cramping and diarrhea seem to be improving, she continues to have cloudy thoughts and dizziness. She states today she went to run some errands. When she looked down she states her vision got black and she thought she was going to pass out. Patient has seen her primary care physician for similar with no definitive diagnosis. Patient is tearful and anxious and repeatedly tells me that she is scared. - Past Medical History (1) GERD (gastroesophageal reflux disease) Status: Chronic (2) Hyperlipidemia Status: Chronic (3) Hypertension Status: Chronic (4) IBD (inflammatory bowel disease) Status: Chronic Past Medical History - Allergies and Home Meds Allergies/Adverse Reactions: Allergies morphine Allergy (Verified 05/09/19 14:25) Hives naproxen Allergy (Verified 05/09/19 14:25) Hives Primary Care Physician: Ernesto Quigley MD [Primary Care Provider] - Prior records reviewed: Yes Surgical History: - - Colon resection secondary to sigmoid diverticulitis, Cholecystectomy. Smoking Status: Current every day smoker Review of Systems General: Denies: Chills, Fever Eyes: Denies: Visual changes - bilaterally ENT: Denies: Bilateral ear pain Cardiovascular: Denies: Chest pain Respiratory: Denies: Cough Gastrointestinal: Reports: Nausea, Diarrhea Genitourinary: Denies: Dysuria Musculoskeletal: Reports: Myalgias. Denies: Extremity Pain Skin: Denies: Rash Neurological: Reports: Weakness - Generalized weakness. Denies: Headache Endocrine: Denies: Polyuria, Polydipsia Allergy: Denies: Uticaria Physical Exam Vital Signs/Narrative: Vital Signs Temp Pulse Resp BP Pulse Ox 05/09/19 13:15 97.3 F L 80 18 171/96 H 100 05/09/19 13:13 97.3 F L 82 18 171/96 H 100 Inital Vital Signs reviewed: Yes General: Well nourished, Well developed Head: Normocephalic ENT: Moist mucous membranes Neck: Supple Cardiovascular: Regular rate, Regular rhythm Respiratory: No distress, CTA bilaterally Abdomen: Soft, Nontender Skin: Normal color Neurological: Alert, Oriented x3, Normal Strength, Normal Sensation Psychological: Tearful Diagnostic/Tx/Re-eval Impressions Head/Neck CTA 05/09/19 13:33 IMPRESSION: CT angiogram of the neck: Less than 50% stenosis of the bilateral internal carotid arteries there is soft plaque and tortuosity. Of note is a hairpin turn in the right side carotid. CT angiogram head Stable appearing angiogram and compared to prior flow voids on the MRI. Findings suggest chronic involutional change. Electronically Signed: Magaly Carter MD at 15:58 EST Tel , Service support , 05/09/19 13:33 CTA Head AND Neck W/ Contrast [CT] Stat Laboratory Results 05/09/19 05/09/19 05/09/19 14:05 14:05 14:17 WBC 6.1 RBC 5.18 Hgb 15.4 H Hct 46.2 MCV 89.2 MCH 29.7 MCHC 33.3 RDW Std Deviation 39.7 RDW Coeff of [place]ome 12.2 Plt Count 213 MPV 10.2 Immature Gran % (Auto) 0.300 Neut % (Auto) 70.0 Lymph % (Auto) 20.2 [place] % (Auto) 5.7 Eos % (Auto) 3.1 Baso % (Auto) 0.7 Absolute Neuts (auto) 4.3 Absolute Lymphs (auto) 1.24 Nucleated RBC % 0 Sodium 135 L Potassium 3.6 Chloride 100 Carbon Dioxide 30.0 Anion Gap 5 BUN 10 Creatinine 0.81 Estim Creat Clear Calc 70.61 Est GFR (MDRD) Af Amer 94 Est GFR (MDRD) Non-Af 78 BUN/Creatinine Ratio 12.3 Glucose 91 Calcium 9.5 Total Bilirubin 0.60 Direct Bilirubin 0.21 AST 16 ALT 30 Alkaline Phosphatase 59 Troponin I < 0.015 Total Protein 7.8 Albumin 4.3 Globulin 3.5 Lipase 83 TSH 0.32 L Urine Color Yellow Urine Clarity Sl. Cloudy Urine pH 6.0 Ur Specific [place] 1.010 Urine Protein Negative Urine Glucose (UA) Normal Urine Ketones 5 H Urine Occult Blood 10 H Urine Nitrite Negative Urine Bilirubin Negative Urine Urobilinogen Normal Ur Leukocyte Esterase 500 H Urine RBC 0-5 SEEN Urine WBC 25-50 SEEN Ur Squamous Epith Cells 5-10 SEEN Urine Bacteria 1+ Urine Mucus 0 SEEN - EKG Initial EKG Interpretation: Sinus Rhythm - Sinus at 67 with no acute ischemia. - Medical Decision Making Patient was given IV fluids. She was given 0.5 mg IV Ativan to help with anxiety. On repeat evaluation patient does feel improved and appears much calm her. She is not tearful. Test results are discussed with her. At this time she does have evidence of a UTI. She will be given 3 days of antibiotic. On questioning now she does report having some dysuria. Patient may also be get a prescription for Ativan. She states her doctor recently went to start her on Cymbalta and she will reconsider starting this. I did advise her that we will take 6 weeks on the new medication to see full benefits. ED Disposition - Plan for ED Patient: Disposition: Home or Assisted Living Diagnosis: UTI (urinary tract infection), Anxiety Instructions: Urinary Tract Infections in Women, Anxiety Reaction Prescriptions: Lorazepam [Ativan] 1 mg PO TID PRN #10 tablet PRN Reason: Anxiety Transmission Status: Sent to [facility] Smz/Tmp Ds [Bactrim Ds] 1 tab PO BID #6 tab Transmission Status: Pending to [facility] Referrals: Ernesto Quigley MD [Primary Care Provider] - 5-7 Days
[2019-05-09 14:17] LABS: Absolute Lymphocyte Count 1.24 X10^3/uL (0.83-4.51); Absolute Neutrophil Count 4.3 X10^3/uL (2.0-7.7); Basophil# 0.04 X10^3/uL; Basophil% 0.7 % (0-1); Eosinophil# 0.19 X10^3/uL; Eosinophils% 3.1 % (0-5); Hematocrit 46.2 % (37-47); Hemoglobin 15.4 g/dL (12.0-15.0); Lymphocyte # 1.24 X10^3/ul (4.0); Lymphocyte % 20.2 % (19-41); Mean Corp Hgb Conc 33.3 g/dL (32-36); Mean Corpuscular Hgb 29.7 pg (27.0-32.0); Mean Corpuscular Volume 89.2 fL (81-99); Mean Platelet Vol. 10.2 fl (6.2-12.0); Monocyte# 0.35 X10^3/uL; Monocyte% 5.7 % (0-10); NRBC Flagged by Analyzer 0 % (0-5); Neutrophil # 4.29 X10^3/uL (2.7-7.7); Platelet Count 213 K/mm3 (150-450); RBC Distribution Width CV 12.2 % (11.6-14.6); RBC Distribution Width SD 39.7 fl (35.1-43.9); Red Blood Count 5.18 M/mm3 (4.2-5.4); White Blood Count 6.1 K/mm3 (4.4-11.0)
[2019-05-09] MEDS: 0.9% Normal Saline 1,000 ML 150 ML IV (14:25)
[2019-05-09 14:30] LABS: Mucous, Urine 0 SEEN /hpf (<or=2+)
[2019-05-09 14:41] LABS: AST(SGOT) 16 U/L (15-37); Alanine Aminotransfer ALT/SGPT 30 U/L (13-56); Albumin, Serum 4.3 g/dL (3.2-5.0); Alkaline Phosphatase 59 U/L (45-117); Anion Gap 5 (5-15); BUN 10 mg/dL (7-18); BUN/Creat Ratio 12.3 RATIO (10-20); Bilirubin, Direct 0.21 mg/dL (0.00-0.30); Calcium,Total 9.5 mg/dL (8.5-10.1); Chloride 100 mmol/L (98-107); Creatinine, Serum 0.81 mg/dL (0.55-1.02); EST Glomerular Filtration Rate 78 mL/min (>60); Est Glom Filt Rate - Afr Amer 94 mL/min (>60); Estimated Creatinine Clearance 70.61 ml/min; Globulin 3.5 g/dL (2.2-4.2); Glucose 91 mg/dL (74-106); Lipase 83 U/L (73-393); Potassium 3.6 mmol/L (3.5-5.1); Protein, Total 7.8 g/dL (6.4-8.2); Sodium Level 135 mmol/L (136-145); Thyroid Stim Hormone (TSH) 0.32 uIU/mL (0.358-3.74)
[2019-05-09] MEDS: LORazepam 2 MG/ML Syringe 0.5 MG IV (14:54)
[2019-05-09 15:05] LABS: Color, Urine Yellow (Yellow); Glucose, Dipstick Normal (Normal); Ketone-Dipstick 5 mg/dl (Negative); Leukocyte Esterase-Dipstick 500 /ul (Negative); Nitrite-Dipstick Negative (Negative); Occult Blood-Urine 10 /ul (Negative); Protein-Dipstick Negative (Negative); Urine Bilirubin Dipstick Negative (Negative); Urine Clarity Sl. Cloudy (Clear); Urine Urobilinogen Normal (Normal)
[2019-05-09 15:12] LABS: Bacteria 1+ /hpf (None Seen); Red Blood Cells-Urine 0-5 SEEN /hpf (0-5); Squamous Epithelial Cells - UA 5-10 SEEN /hpf (5-10); White Blood Cells 25-50 SEEN /hpf (0-5)
[2019-05-09 15:30] VITALS: BP 135/75; PULSE 65; RESP 12; O2SAT 98
[2019-05-09] MEDS: Smz/Tmp Ds Tablet 1 TABLET PO (16:48)
[2019-05-09 16:50] VITALS: BP 122/67; PULSE 72; RESP 16; O2SAT 97
== END 2019-05-09 16:51 | disposition home or self-care (01) ==
PROVIDERS: Emergency Provider Emergency Medicine; PCP Family Medicine
DX: N39.0 Urinary tract infection, site not specified (principal); F41.9 Anxiety disorder, unspecified; I65.23 Occlusion and stenosis of bilateral carotid arteries; K58.0 Irritable bowel syndrome with diarrhea; I10 Essential (primary) hypertension; E78.5 Hyperlipidemia, unspecified; K21.9 Gastro-esophageal reflux disease without esophagitis; F17.200 Nicotine dependence, unspecified, uncomplicated; Z88.5 Allergy status to narcotic agent; Z79.899 Other long term (current) drug therapy; Z90.49 Acquired absence of other specified parts of digestive tract
CPT/HCPCS: 70496; 70498; 80048; 80076; 81001; 83690; 84443; 84484; 85025; 93005; 96361; 96374; 99285; J7030; Q9967

== ENCOUNTER 2019-05-25 11:11 | Emergency (ER) | payer OTHER, SELFPAY ==
[2019-05-25 11:11] VITALS: BP 143/94; PULSE 105; RESP 17; TEMP 36.6; O2SAT 96; BMI 43.0
--- NOTE | 2019-05-25 11:25 | CT_ITS ---
STUDY: CT ABDOMEN AND PELVIS WITH CONTRAST REASON FOR EXAM: Female, 53 years old. Abdominal pain, diarrhea, decreased appetita, 20lb weight loss x 1 month. Prior sigmoid resection d/t diverticulitis, cholecystectomy. RADIATION DOSAGE (If Supplied By Facility): CTDIvol = ( 20.38 ) mGy, DLP = ( 1199.68 ) mGycm TECHNIQUE: Transaxial images were obtained from the dome of the diaphragm to the symphysis pubis with oral contrast. 100mL Isovue-370 and amp; gastrografin was administered. Sagittal and coronal images were reconstructed. Individualized dose optimization techniques were used for this CT. COMPARISON: None. FINDINGS: The visualized lung bases are unremarkable. The visualized portions of the heart are within normal limits. Normal liver. There are surgical clips in the gallbladder fossa consistent with a prior cholecystectomy. Normal spleen. Normal pancreas. Normal bilateral adrenal glands. Normal right kidney. Normal left kidney. Normal visualized stomach. Normal small intestine. There are multiple colonic diverticula consistent with diverticulosis. The appendix is visualized and appears normal. Normal abdominal aorta. Normal inferior vena cava. Normal retroperitoneum. Normal urinary bladder. Either partial hysterectomy versus significant uterine atrophy. Normal abdominal wall. There are diffuse degenerative changes of the visualized lumbar spine. CT/Abdomen/Pelvis WITH Contrast IMPRESSION: No acute findings. Chronic diverticulosis without acute diverticulitis. Unremarkable appendix. Remainder as above Electronically Signed: Titus Bourne DO at 13:55 EST Tel , Service support ,
--- NOTE | 2019-05-25 11:26 | ED.DCSUM_ITS ---
History of Present Illness Chief Complaint: Abd Pain Informant: Patient Onset: Weeks Context: Gradual Onset Timing: Waxes and wanes Current Severity: Mild Maximum Severity: Moderate Narrative: She does have an history of irritable bowel and is scheduled to see Dr. Cm in May. Patient states that she has not been eating because she is afraid it will make her abdomen hurt worse. She has lost 20 pounds over the course of the past month. Patient does have a lot of anxiety about potentially having cancer that has not been diagnosed. On her last visit she was discharged with a prescription for some Ativan. She did not get any more of this from her doctor and did not start the Cymbalta that he had wanted her to take. - Past Medical History (1) Hypertension Status: Chronic (2) IBD (inflammatory bowel disease) Status: Chronic (3) GERD (gastroesophageal reflux disease) Status: Chronic (4) Chronic diarrhea Status: Chronic (5) Hyperlipidemia Status: Chronic Past Medical History - Allergies and Home Meds Allergies/Adverse Reactions: Allergies morphine Allergy (Verified 05/25/19 11:11) Hives naproxen Allergy (Verified 05/25/19 11:11) Hives Primary Care Physician: Ernesto Quigley MD [Primary Care Provider] - Prior records reviewed: Yes Surgical History: - - Colon resection secondary to sigmoid diverticulitis, Cholecystectomy. Smoking Status: Current every day smoker Review of Systems General: Denies: Chills, Fever Eyes: Denies: Visual changes - bilaterally ENT: Denies: Bilateral ear pain Cardiovascular: Denies: Chest pain Respiratory: Denies: Dyspnea, Cough Gastrointestinal: Reports: Abdominal pain, Diarrhea. Denies: Vomiting Genitourinary: Denies: Dysuria Musculoskeletal: Denies: Neck pain, Back pain, Extremity Pain Skin: Denies: Rash Neurological: Denies: Headache Psych: Reports: Anxiety Allergy: Denies: Uticaria Physical Exam Vital Signs/Narrative: Vital Signs Temp Pulse Resp BP Pulse Ox 05/25/19 11:11 97.8 F 105 H 17 143/94 H 96 Inital Vital Signs reviewed: Yes General: Well nourished, Well developed Head: Normocephalic ENT: Moist mucous membranes Neck: Supple Cardiovascular: Regular rate, Regular rhythm Respiratory: No distress, CTA bilaterally Abdomen: Soft, Normal bowel sounds, Tender - Mild diffuse tenderness.. Negative for: Guarding, Rebound tenderness Extremities: Nontender Skin: Normal color, No rash Neurological: Alert, Oriented x3 Psychological: Tearful Diagnostic/Tx/Re-eval Impressions Abdomen/Pelvis CT 05/25/19 11:25 IMPRESSION: No acute findings. Chronic diverticulosis without acute diverticulitis. Unremarkable appendix. Remainder as above Electronically Signed: Titus Bourne DO at 13:55 EST Tel , Service support , 05/25/19 11:25 Abdomen/Pelvis WITH Contrast [CT] Stat Laboratory Results 05/25/19 05/25/19 05/25/19 11:44 11:44 11:44 WBC 6.7 RBC 5.16 Hgb 15.5 H Hct 46.5 MCV 90.1 MCH 30.0 MCHC 33.3 RDW Std Deviation 39.9 RDW Coeff of [place] 12.1 Plt Count 223 MPV 9.7 Immature Gran % (Auto) 0.100 Neut % (Auto) 78.8 H Lymph % (Auto) 14.2 L [place] % (Auto) 4.6 Eos % (Auto) 1.6 Baso % (Auto) 0.7 Absolute Neuts (auto) 5.2 Absolute Lymphs (auto) 0.95 Nucleated RBC % 0 Sodium 138 Potassium 3.5 Chloride 104 Carbon Dioxide 30.0 Anion Gap 4 L BUN 5 L Creatinine 0.82 Estim Creat Clear Calc 69.75 Est GFR (MDRD) Af Amer 93 Est GFR (MDRD) Non-Af 77 BUN/Creatinine Ratio 6.1 L Glucose 101 Calcium 9.0 Total Bilirubin 0.20 Direct Bilirubin 0.10 AST 20 ALT 26 Alkaline Phosphatase 56 Total Protein 7.1 Albumin 3.7 Globulin 3.4 Lipase 56 L Urine Color Yellow Urine Clarity Clear Urine pH 7.0 Ur Specific [place] 1.010 Urine Protein Negative Urine Glucose (UA) Normal Urine Ketones Negative Urine Occult Blood 10 H Urine Nitrite Negative Urine Bilirubin Negative Urine Urobilinogen Normal Ur Leukocyte Esterase 25 H Urine RBC 0 SEEN Urine WBC 0 SEEN Ur Squamous Epith Cells 0-5 SEEN Urine Bacteria 0 SEEN Urine Mucus 0 SEEN - Medical Decision Making Patient was given 0.5 mg of IV Ativan here for anxiety. Test results are discussed with her. She is reassured with these findings. Patient is much improved after Ativan. I will write her another short course of Ativan and encouraged her to follow-up with her primary care doctor for this prescription. She will call Dr. Pinzon's office to see if her appointment can be moved any sooner. ED Disposition - Plan for ED Patient: Disposition: Home or Assisted Living Diagnosis: Abdominal pain, Anxiety Instructions: ABDOMINAL PAIN, Unknown Cause, (Female), Anxiety Reaction Prescriptions: Lorazepam [Ativan] 0.5 - 1 tab PO TID #10 tablet Transmission Status: Received by [facility] Referrals: Ernesto Quigley MD [Primary Care Provider] - 1 Week
[2019-05-25 11:51] LABS: Bacteria 0 SEEN /hpf (None Seen); Mucous, Urine 0 SEEN /hpf (<or=2+); Red Blood Cells-Urine 0 SEEN /hpf (0-5); White Blood Cells 0 SEEN /hpf (0-5)
[2019-05-25] MEDS: 0.9% Normal Saline 1,000 ML 150 ML IV (11:53)
[2019-05-25] MEDS: LORazepam 2 MG/ML Syringe 0.5 MG IV (11:53)
[2019-05-25 11:56] LABS: Absolute Lymphocyte Count 0.95 X10^3/uL (0.83-4.51); Absolute Neutrophil Count 5.2 X10^3/uL (2.0-7.7); Basophil# 0.05 X10^3/uL; Basophil% 0.7 % (0-1); Eosinophil# 0.11 X10^3/uL; Eosinophils% 1.6 % (0-5); Hematocrit 46.5 % (37-47); Hemoglobin 15.5 g/dL (12.0-15.0); Lymphocyte # 0.95 X10^3/ul (4.0); Lymphocyte % 14.2 % (19-41); Mean Corp Hgb Conc 33.3 g/dL (32-36); Mean Corpuscular Volume 90.1 fL (81-99); Mean Platelet Vol. 9.7 fl (6.2-12.0); Monocyte# 0.31 X10^3/uL; Monocyte% 4.6 % (0-10); NRBC Flagged by Analyzer 0 % (0-5); Neutrophil # 5.24 X10^3/uL (2.7-7.7); Neutrophil % 78.8 % (47-70); Platelet Count 223 K/mm3 (150-450); RBC Distribution Width CV 12.1 % (11.6-14.6); RBC Distribution Width SD 39.9 fl (35.1-43.9); Red Blood Count 5.16 M/mm3 (4.2-5.4); White Blood Count 6.7 K/mm3 (4.4-11.0)
[2019-05-25 11:57] LABS: Color, Urine Yellow (Yellow); Glucose, Dipstick Normal (Normal); Ketone-Dipstick Negative (Negative); Leukocyte Esterase-Dipstick 25 /ul (Negative); Nitrite-Dipstick Negative (Negative); Occult Blood-Urine 10 /ul (Negative); Protein-Dipstick Negative (Negative); Urine Bilirubin Dipstick Negative (Negative); Urine Clarity Clear (Clear); Urine Urobilinogen Normal (Normal)
[2019-05-25 12:09] LABS: AST(SGOT) 20 U/L (15-37); Alanine Aminotransfer ALT/SGPT 26 U/L (13-56); Albumin, Serum 3.7 g/dL (3.2-5.0); Alkaline Phosphatase 56 U/L (45-117); Anion Gap 4 (5-15); BUN 5 mg/dL (7-18); BUN/Creat Ratio 6.1 RATIO (10-20); Chloride 104 mmol/L (98-107); Creatinine, Serum 0.82 mg/dL (0.55-1.02); EST Glomerular Filtration Rate 77 mL/min (>60); Est Glom Filt Rate - Afr Amer 93 mL/min (>60); Estimated Creatinine Clearance 69.75 ml/min; Globulin 3.4 g/dL (2.2-4.2); Glucose 101 mg/dL (74-106); Lipase 56 U/L (73-393); Potassium 3.5 mmol/L (3.5-5.1); Protein, Total 7.1 g/dL (6.4-8.2); Sodium Level 138 mmol/L (136-145)
[2019-05-25 12:10] LABS: Squamous Epithelial Cells - UA 0-5 SEEN /hpf (5-10)
[2019-05-25 13:11] VITALS: RESP 16
[2019-05-25] MEDS: Ondansetron 4 MG/2 ML Vial IV (13:33)
[2019-05-25 14:44] VITALS: BP 97/63; PULSE 64; RESP 16; O2SAT 95
--- NOTE | 2019-05-25 14:47 | ED.RN ---
REVIEWED D/C INSTRUCTIONS, FOLLOW UP CARE, PRESCRIPTION, AND S/S THAT WOULD WARRANT A RETURN TO THE ED WITH PT. PT VERBALIZED AN UNDERSTANDING AND DENIES FURTHER QUESTIONS FOR THIS RN. PT SKIN P/W/D, RESP EVEN AND UNLABORED, PT A&O X 3, NO DISTRESS NOTED. PT AMBULATED OUT OF ED, GAIT STEADY.
== END 2019-05-25 14:48 | disposition home or self-care (01) ==
PROVIDERS: Emergency Provider Emergency Medicine; PCP Family Medicine; Referring Provider Family Medicine
DX: R10.9 Unspecified abdominal pain (principal); F41.9 Anxiety disorder, unspecified; K58.0 Irritable bowel syndrome with diarrhea; I10 Essential (primary) hypertension; E78.5 Hyperlipidemia, unspecified; K21.9 Gastro-esophageal reflux disease without esophagitis; Z79.899 Other long term (current) drug therapy; F17.200 Nicotine dependence, unspecified, uncomplicated; Z90.49 Acquired absence of other specified parts of digestive tract
CPT/HCPCS: 74177; 80048; 80076; 81001; 83690; 85025; 96361; 96374; 96375; 99283; J7030; Q9967; A4216; J2405

== ENCOUNTER → 2019-06-13 13:05 | Outpatient (CLI) | payer OTHER, SELFPAY ==
[2019-05-25 11:11] VITALS: BMI 43.0
--- NOTE | 2019-06-13 | GASB_PTH ---
PATIENT: LINN PARNELL LOC: [facility] U#:[id number] AGE/SX: 59/F ROOM: RE06/13/[address]: Dr. Thomas Cm MD : 1965 BED: DIS: SPEC #: [id number] RECD: 06/13/19 15:32 STATUS: JASIEL ANDREINA #: [id number] AYLEEN: 06/13/19 00:[address]: Thomas Cm DEPT: SURGICAL PATHOLOGY RECD BY: Stanley Urbina ENTERED: 06/16/19 09:07 SP TYPE: Gastric Bx OTHR DR: Dr. Ernesto Quigley MD [facility] Tissues: A - Gastric mucous membrane B - Esophagus, NOS Procedures: Special Stain Group II Surgery Specimen Level IV Alcian Blue/PAS (control) HEADER OPERATION: EGD with biopsy PRE-OP DIAGNOSIS: GERD TISSUE SUBMITTED: A - Gastric biopsies, rule out gastritis/H. pylori, B - Esophageal biopsies (distal), rule out Slaomon's/dysplasia MICROSCOPIC DIAGNOSIS A. Gastric biopsy: Mild to moderate gastritis. See microscopic description and comment. B. Esophageal biopsy (distal): Fragments of gastroesophageal mucosa with intestinal metaplasia (goblet cell metaplasia), consistent with Salomon's esophagus. Mild chronic inflammation. Negative for dysplasia. See comment. SJ:rg 06/17/19 COMMENT A. The results of immunohistochemistry for Helicobacter pylori will be reported separately ([id number]). B. Alcian blue/PAS stain with matched control is used in the evaluation of the specimen. MICROSCOPIC DESCRIPTION Slides are reviewed. A. The specimen shows fragments of gastric mucosa with chronic inflammatory cell infiltrates in the lamina propria consisting of lymphocytes and plasma cells, consistent with mild to moderate chronic gastritis. GROSS DESCRIPTION A - Received in fixative is one container labeled with the patient's name and designated gastric biopsy. The specimen consists of two irregular fragments of light steele soft tissue that in aggregate measure 0.5 x 0.5 x 0.1 cm. The specimen is totally submitted in one cassette. B - Received in fixative is one container labeled with the patient's name and designated esophageal biopsy. The specimen consists of multiple irregular fragments of light steele soft tissue that in aggregate measure 1 x 0.2 x 0.1 cm. The specimen is totally submitted in one cassette. / AM:josephine 06/16/19 TC:3 CPT: 50090 x2, 94106
--- NOTE | 2019-06-13 13:05 | IMM_PTH ---
PATIENT: LINN PARNELL LOC: [facility] U#:[id number] AGE/SX: 59/F ROOM: RE06/13/[address]: Dr. Thomas Cm MD : 1965 BED: DIS: SPEC #: [id number] RECD: 06/16/19 09:17 STATUS: JASIEL REQ #: [id number] AYLEEN: 06/13/19 13:[address]: Thomas Cm DEPT: IMMUNOHISTOCHEMISTRY RECD BY: Bonny Rivera ENTERED: 06/16/19 09:18 SP TYPE: IMMUNO OTHR DR: Dr. Ernesto Quigley MD Tissues: A - Stomach, NOS Procedures: H Pylori (initial) PHYSICIAN & INSTITUTION [facility] [id number] SPECIMEN INFORMATION: Tissue Source: A - Gastric biopsies Clinical Info: GERD Specimen Number: [id number] CPT code: 56201 METHODOLOGY: Deparaffinized sections of prefer/formalin-fixed tissue or PAP/DQ stained slides are incubated with monoclonal/polyclonal antibodies/oligonucleotide probes. Localization is made via biotin free immunoperoxidase method. Appropriate controls are performed and reacted as expected. Results on target cell population are indicated in the following table: RESULTS: ANTIBODY / CLONE RESULT Block A H Pylori (polyclonal) negative These tests were developed and their performance characteristics determined by [facility]. They may not have been cleared or approved by the U.S. Food and Drug Administration. The FDA has determined that such clearance or approval is not necessary. INTERPRETATION: A. Gastric biopsy: Negative for Helicobacter pylori organisms. MONA:josephine 06/17/19
== END ==
PROVIDERS: PCP Family Medicine; Referring Provider Internal Medicine Gastroenterology; Visit Provider Internal Medicine Gastroenterology
DX: K21.9 Gastro-esophageal reflux disease without esophagitis (principal)
CPT/HCPCS: 88305; 88313; 88342

== ENCOUNTER → 2019-09-18 10:21 | Outpatient (CLI) | payer OTHER, SELFPAY ==
[2019-09-02 13:35] VITALS: BMI 43.0
[2019-09-18 15:50] LABS: Albumin, Serum 3.8 g/dL (3.2-5.0); BUN 12 mg/dL (7-18); BUN/Creat Ratio 16.4 RATIO (10-20); Creatinine, Serum 0.73 mg/dL (0.55-1.02); EST Glomerular Filtration Rate 87 mL/min (>60); Est Glom Filt Rate - Afr Amer 106 mL/min (>60); Glucose 95 mg/dL (74-106); Protein, Total 7.6 g/dL (6.4-8.2)
[2019-09-18 15:51] LABS: AST(SGOT) 17 U/L (15-37); Alanine Aminotransfer ALT/SGPT 25 U/L (13-56); Alkaline Phosphatase 69 U/L (45-117); Anion Gap 5 (5-15); Calcium,Total 9.2 mg/dL (8.5-10.1); Chloride 102 mmol/L (98-107); Globulin 3.8 g/dL (2.2-4.2); Potassium 3.8 mmol/L (3.5-5.1); Sodium Level 139 mmol/L (136-145); Thyroid Stim Hormone (TSH) 0.65 uIU/mL (0.358-3.74)
== END ==
PROVIDERS: PCP Family Medicine; Referring Provider Family Medicine; Visit Provider Family Medicine
DX: H81.09 Meniere's disease, unspecified ear (principal); F41.9 Anxiety disorder, unspecified
CPT/HCPCS: 36415; 80053; 84443

== ENCOUNTER 2019-10-18 12:15 | Outpatient (RCR) | payer OTHER, SELFPAY ==
--- NOTE | 2019-07-05 13:57 | MASS.EVAL_ITS ---
Massage Therapy Evaluation: Initial Evaluation Date: 06/2019 SUBJECTIVE: Isabella is a 54 year old female who was referred to the [facility] for a massotherapy evaluation by Dr. Ernesto Quigley with the diagnosis of muscle tension. She presents today with the symptoms of pain, stiffness and tension in the neck, mid back, low back and hips. Isabella reports having a past medical history of neck, shoulders, back pain. She reports that her interscapular region has muscle tension radiating pain up to her neck which is worse on the left side. She reports having minimal improvement with exercise and stretching over the last few days. OBJECTIVE: Upon observation Isabella has some posture issues with her head and shoulders forward from the neutral position in sitting and standing. After examination and palpation, I found Isabella to have high muscle tension with tenderness and myofascial restrictions in her sub occipitals, levator scapulae, trapezius, rhomboids, scalenes, and thoracic paraspinals. Her QL?s, lumbar paraspinals, piriformis, glute medius and minimus all were very tight with fascial restrictions, tender points and trigger points. The first treatment consisted of a one hour massage to her upper body with myofascial release, muscle stripping, trigger point compression techniques, and cervical manual traction. ASSESSMENT: I feel that Isabella is a good candidate for massotherapy at this time. She had a favorable response to the first treatment with reduction in her muscle aches, pain and tension. She also had improvement in her cervical flexibility and low back flexibility. PLAN: The plan of care was reviewed with the patient. The patient is to be seen on an as needed basis for a total of ten sessions with the recommendation of once every month for a one hour treatment.
--- NOTE | 2020-04-08 12:03 | MASS.DISCH ---
Massage Therapy Discharge Summary: Discharge Date: 04/08/2020 Isabella was seen for a massotherapy evaluation on 07/05/2019 with the diagnosis of muscle tension. She was treated with two sessions of massage therapy consisting of deep pressure soft tissue techniques, myofascial release and trigger point compression to her cervical, thoracic, lower back, lower extremities and hips. Isabella responded well to the therapy by reporting decreased tension and pain throughout her neck, shoulders, lower back and hips. Her goals for therapy were met throughout the treatment sessions. At this time this patient is being discharged from our care at [facility] facility.
== END 2019-10-18 19:00 | disposition home or self-care (01) ==
LOC: MASS 12:15
PROVIDERS: PCP Family Medicine; Referring Provider Family Medicine; Visit Provider Family Medicine
DX: M62.9 Disorder of muscle, unspecified (principal)
CPT/HCPCS: 97124

== ENCOUNTER → 2020-03-16 15:12 | Outpatient (CLI) | payer OTHER, SELFPAY ==
[2019-09-02 13:35] VITALS: BMI 43.0
--- NOTE | 2020-03-16 15:13 | BI_ITS ---
MAMMOGRAPHY - BILATERAL SCREENING REASON FOR EXAM: Female, 54 years old. Routine annual screening examination. PERTINENT HISTORY: Patient has lost 50 pounds TECHNIQUE: Digital bilateral breast clemenet (3D mammographic acquisition) in the CC and MLO projections. 2-D mediolateral oblique (MLO) and craniocaudad (CC) views of both breasts were obtained. CAD: Full Field Digital Mammography with Computer Added Detection was performed. COMPARISON: 03/13/2019 FINDINGS: Breast Composition: Fatty There are no dominant masses or suspicious calcifications. No other significant abnormalities are identified. BI/SCREEN MAMM (CAD) W/CLEMENTE BILAT IMPRESSION: Stable bilateral screening mammogram. Yearly follow-up mammogram recommended. (A) ASSESSMENT CATEGORY: BIRADS Category 1: Negative. A letter regarding these results will be sent to the patient by the facility within 30 days. Approximately 10% of breast cancers are not detected by mammography. A normal mammogram should not delay biopsy of a clinically suspicious abnormality. [id number] Electronically Signed: Dung Soto, at 10:32 EST Tel , Service support ,
--- NOTE | 2020-03-16 15:29 | BD_ITS ---
STUDY: DUAL ENERGY X-RAY ABSORPTIOMETRY / DXA REASON FOR EXAM: Female, 54 years old. Age of alessia 40. Pat is 254# and 64 and quot; a loss of 2 and quot;. Pat is a smoker. Takes calcium. Exercises moderatly. Grandmother has osteo. Hx of a rt humerus and right ankle fx. TECHNIQUE: Bone Mineral Density (BMD) measurements of lumbar spine and bilateral hips were obtained. COMPARISON: None. FINDINGS: Lumbar Spine (L1-L4): g/cm2 (1.318) / T-score (1.0) / Z-score (1.9) Findings are suggestive of normal bone density with a low fracture risk. Left Femur Total: g/cm2 (0.923) / T-score (-0.7) / Z-score (0.1) Left Femoral Neck: g/cm2 (0.844) / T-score (-1.4) / Z-score (-0.3) Right Femur Total: g/cm2 (0.875) / T-score (-1.1) / Z-score (-0.3) Right Femoral Neck: g/cm2 (0.860) / T-score (-1.3) / Z-score (-0.2) BD/Dexa Bone Density Study IMPRESSION: The patient is considered osteopenic as outlined below according to World Osman Organization (WHO) criteria with a low fracture risk. Reference Information: The T-score is the number of standard deviations above or below the standard which is normal for young adults at their peak bone mineral density. The World Health Organization (WHO) interprets the T-scores as follows: Above -1 Normal bone density Between -1 and -2.5 Osteopenia Equal to / or below -2.5 Osteoporosis As a practical clinical guideline, osteopenia may be graded as follows: Mild -1 through -1.5 Moderate -1.6 through -2.0 Severe -2.1 through -2.4 The Z-score is the number of standard deviations above or below age-matched controls. A Z-score of less than -1.5 would be considered abnormal. References: 1. NIH Osteoporosis and Related Bone Diseases www osteo.org 2. International Society for Clinical Densitometry www iscd.org 3. National Osteoporosis Foundation www nof.org Electronically Signed: Jamel Sanders, at 16:46 EST , Service support ,
== END ==
PROVIDERS: PCP Family Medicine; Referring Provider Family Medicine; Visit Provider Family Medicine
DX: Z12.31 Encounter for screening mammogram for malignant neoplasm of breast (principal)
CPT/HCPCS: 77063; 77067; 77080

== ENCOUNTER 2020-03-31 16:19 | Emergency (ER) | payer OTHER, SELFPAY ==
[2019-09-02 13:35] VITALS: BMI 43.0
[2020-03-31 16:19] VITALS: BP 159/83; PULSE 88; RESP 18; TEMP 36; O2SAT 99; BMI 41.4
--- NOTE | 2020-03-31 17:20 | ED.DCSUM_ITS ---
History of Present Illness Chief Complaint: Chest Pain Informant: Patient Narrative: 54-year-old female presenting with left upper chest wall pain. She states that she has had it since 4 AM this morning. She states she took ibuprofen prior to arrival and she thinks this is why it is now gone. This lasted over 12 hours. She describes it as a knot in her left upper chest wall she feels as if it is radiating from her shoulder to her left upper chest. She does not have cough, fever, chills, shortness of breath, lightheadedness. She denies cardiac history. She has no history of DVT/PE. - Past Medical History (1) GERD (gastroesophageal reflux disease) Status: Chronic (2) Hyperlipidemia Status: Chronic (3) Hypertension Status: Chronic (4) IBD (inflammatory bowel disease) Status: Chronic Past Medical History - Allergies and Home Meds Allergies/Adverse Reactions: Allergies morphine Allergy (Verified 03/31/20 16:45) Hives naproxen Allergy (Verified 03/31/20 16:45) Hives Primary Care Physician: Ernesto Quigley MD [Primary Care Provider] - Prior records reviewed: Yes Past Medical History: - - Reviewed in problem list Surgical History: noncontributory, - - Colon resection secondary to sigmoid diverticulitis, Cholecystectomy. Lives: Alone Smoking Status: Current every day smoker Alcohol: None Drugs: None Review of Systems General: Denies: Chills, Fever, Sweats Eyes: Denies: Visual changes - bilaterally, Diplopia ENT: Denies: Rhinorrhea, Sore throat Cardiovascular: Reports: Chest pain. Denies: Palpitations, Heart racing Respiratory: Denies: Dyspnea, Cough, Dyspnea on exertion Gastrointestinal: Denies: Abdominal pain, Nausea, Vomiting, Diarrhea, Melena, Hematochezia Genitourinary: Denies: Dysuria, Hematuria, Frequency Musculoskeletal: Reports: Extremity Pain, - - Left shoulder pain. Denies: Back pain Skin: Denies: Rash, Wounds Neurological: Denies: Headache, Weakness, Numbness Physical Exam Vital Signs/Narrative: Vital Signs Temp Pulse Resp BP Pulse Ox 03/31/20 16:19 96.8 F L 88 18 159/83 H 99 Inital Vital Signs reviewed: Yes General: Well nourished, No Acute Distress Head: Normocephalic, Atraumatic Eyes: Perrl, EOMI ENT: Moist mucous membranes. Negative for: Nasal congestion Cardiovascular: Regular rate, Regular rhythm Respiratory: No distress, CTA bilaterally, Chest tenderness - Tenderness to palpation left upper chest wall. No crepitus, deformity. No bruising. Abdomen: Soft Extremities: Tenderness - Tenderness to palpation of left shoulder at the left AC joint. Patient has full range of motion of the left shoulder however does elicit pain.. Negative for: Edema Skin: Normal color, No rash Neurological: Alert, Oriented x3 Psychological: Normal affect, Normal Mood Diagnostic/Tx/Re-eval Clinical Impression(s) from Imaging Studies Chest X-Ray 03/31/20 17:39 IMPRESSION: Normal x-ray examination of the chest. Electronically Signed: Lupe Granger MD at 17:54 EST , Service support , Shoulder X-Ray 03/31/20 17:39 IMPRESSION: Normally located glenohumeral joint and acromioclavicular joint without fracture, osteolytic or blastic bone lesion. 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 Electronically Signed: Lupe Granger MD at 17:56 EST , Service support , Laboratory Data 03/31/20 03/31/20 03/31/20 17:30 17:30 17:30 WBC 5.8 RBC 4.85 Hgb 14.4 Hct 44.1 MCV 90.9 MCH 29.7 MCHC 32.7 RDW Std Deviation 39.7 RDW Coeff of Winsome 11.9 Plt Count 226 MPV 9.9 Immature Gran % (Auto) 0.200 Neut % (Auto) 64.2 Lymph % (Auto) 25.3 [place] % (Auto) 5.8 Eos % (Auto) 3.6 Baso % (Auto) 0.9 Absolute Neuts (auto) 3.8 Absolute Lymphs (auto) 1.48 Nucleated RBC % 0 D-Dimer Quant (PE/DVT) 0.40 Sodium 137 Potassium 4.1 Chloride 102 Carbon Dioxide 31.0 Anion Gap 4 L BUN 11 Creatinine 0.74 Estim Creat Clear Calc 79.47 Est GFR (MDRD) Af Amer 104 Est GFR (MDRD) Non-Af 86 BUN/Creatinine Ratio 14.9 Glucose 105 Calcium 9.1 Troponin I < 0.015 - Rhythm Strip Rhythm Strip: Sinus Rhythm Rate: 69 - EKG Initial EKG Interpretation: Sinus Rhythm, No Acute Injury Pattern - Medical Decision Making 50-year-old female presenting with chest pain. Patient had concerned that it could be cardiac in nature. She had it for 12 hours today. It is resolved on arrival after taking ibuprofen. she also complains of left shoulder pain. On exam her left shoulder does have full range of motion of the shoulder joint however she does it is painful to range it. Left shoulder x-ray interpreted by myself in the radiologist shows degenerative change at the AC joint which is where she is having pain. Chest x-ray interpreted by myself and the radiologist also negative for acute process. EKG interpreted by myself shows no acute ischemic changes. Lab work is unremarkable. Troponin is negative. D-dimer is negative. Given the patient has had 12 hours of pain and negative troponin and normal EKG I do not believe she needs a delta troponin or EKG. Patient's pain is likely musculoskeletal in nature. She will be discharged home in stable condition. Impression: 1. Chest pain 2. Degenerative changes left AC joint ED Disposition - Plan for ED Patient: Disposition: Home or Assisted Living Instructions: ED Chest Pain, Noncardiac, ED Sprain AC Joint Referrals: Ernesto Quigley MD [Primary Care Provider] -
--- NOTE | 2020-03-31 17:27 | EKG12_ITS ---
Test Reason : CP Blood Pressure : / mmHG Vent. Rate : 069 BPM Atrial Rate : 069 BPM P-R Int : 162 ms QRS Dur : 086 ms QT Int : 418 ms P-R-T Axes : 048 003 027 degrees QTc Int : 447 ms Normal sinus rhythm Low voltage QRS Borderline ECG Confirmed by MELONY GOMEZ, PANDA ([id number]), slot editor MICHAEL CRABTREE ([id number]) on 04/02/2020 2:08:49 PM Referred By: LILIAN Confirmed By:PANDA TY MD
--- NOTE | 2020-03-31 17:39 | RAD_ITS ---
STUDY: X-RAY CHEST REASON FOR EXAM: Female, 54 years old. PT REPORTS LEFT CHEST PAIN, TENDER UPON PALPATION TECHNIQUE: 1 view COMPARISON: Prior chest radiograph from 04/13/2019 FINDINGS: The lungs are clear and expanded. There is no demonstrated pleural abnormality. Normal size heart. Normal mediastinum and freddy. Normal visualized pulmonary arteries. Normal visualized aortic arch and descending thoracic aorta. Normal visualized thoracic spine. Normal visualized ribs, clavicles, and shoulders. There is no demonstrated abnormality of the visualized soft tissue structures of the upper abdomen. RAD/Chest 1 View (Portable) IMPRESSION: Normal x-ray examination of the chest. Electronically Signed: Lupe Granger MD at 17:54 EST , Service support ,
--- NOTE | 2020-03-31 17:39 | RAD_ITS ---
STUDY: X-RAY - LEFT SHOULDER REASON FOR EXAM: Female, 54 years old. Chronic left shoulder pain. NKI. TECHNIQUE: 4 view(s) of the shoulder. COMPARISON: None. FINDINGS: Normal glenohumeral articulation. There is degenerative arthrosis of the acromioclavicular joint without inferior osseous spur formation. Normal acromion. Normal humeral head and visualized proximal humerus. The soft tissue structures are unremarkable. There is no demonstrated fracture. Normal visualized pulmonary apex. RAD/Shoulder min 2 Views IMPRESSION: Normally located glenohumeral joint and acromioclavicular joint without fracture, osteolytic or blastic bone lesion. 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 Electronically Signed: Lupe Granger MD at 17:56 EST , Service support ,
[2020-03-31 17:49] LABS: Absolute Lymphocyte Count 1.48 X10^3/uL (0.83-4.51); Absolute Neutrophil Count 3.8 X10^3/uL (2.0-7.7); Basophil# 0.05 X10^3/uL; Basophil% 0.9 % (0-1); Eosinophil# 0.21 X10^3/uL; Eosinophils% 3.6 % (0-5); Hematocrit 44.1 % (37-47); Hemoglobin 14.4 g/dL (12.0-15.0); Lymphocyte # 1.48 X10^3/ul (4.0); Lymphocyte % 25.3 % (19-41); Mean Corp Hgb Conc 32.7 g/dL (32-36); Mean Corpuscular Hgb 29.7 pg (27.0-32.0); Mean Corpuscular Volume 90.9 fL (81-99); Mean Platelet Vol. 9.9 fl (6.2-12.0); Monocyte# 0.34 X10^3/uL; Monocyte% 5.8 % (0-10); NRBC Flagged by Analyzer 0 % (0-5); Neutrophil # 3.75 X10^3/uL (2.7-7.7); Neutrophil % 64.2 % (47-70); Platelet Count 226 K/mm3 (150-450); RBC Distribution Width CV 11.9 % (11.6-14.6); RBC Distribution Width SD 39.7 fl (35.1-43.9); Red Blood Count 4.85 M/mm3 (4.2-5.4); White Blood Count 5.8 K/mm3 (4.4-11.0)
[2020-03-31 18:03] LABS: Anion Gap 4 (5-15); BUN 11 mg/dL (7-18); BUN/Creat Ratio 14.9 RATIO (10-20); Calcium,Total 9.1 mg/dL (8.5-10.1); Chloride 102 mmol/L (98-107); Creatinine, Serum 0.74 mg/dL (0.55-1.02); EST Glomerular Filtration Rate 86 mL/min (>60); Est Glom Filt Rate - Afr Amer 104 mL/min (>60); Estimated Creatinine Clearance 79.47 ml/min; Glucose 105 mg/dL (74-106); Potassium 4.1 mmol/L (3.5-5.1); Sodium Level 137 mmol/L (136-145)
[2020-03-31 18:29] VITALS: BP 122/65; PULSE 73; RESP 16; O2SAT 100
[2020-03-31 18:56] VITALS: BP 129/74; PULSE 73; RESP 18; O2SAT 99
--- NOTE | 2020-03-31 18:57 | ED.RN ---
THIS NURSE REVIEWED D/C INSTRUCTIONS WITH PT. PT VERBALIZED UNDERSTANDING OF INSTRUCTIONS. IV D/C. IV CATHETER INTACT. PT TOLERATED WELL. PT DENIES FURTHER NEEDS OR QUESTIONS AT THIS TIME. PT AMBULATES FROM ROOM ON OWN WITHOUT ASSISTANCE FROM STAFF
== END 2020-03-31 18:59 | disposition home or self-care (01) ==
PROVIDERS: Emergency Provider Student in an Organized Health Care Education/Training Program; PCP Family Medicine
DX: R07.89 Other chest pain (principal); M19.012 Primary osteoarthritis, left shoulder; I10 Essential (primary) hypertension; E78.5 Hyperlipidemia, unspecified; K58.9 Irritable bowel syndrome, unspecified; K21.9 Gastro-esophageal reflux disease without esophagitis; F17.200 Nicotine dependence, unspecified, uncomplicated
CPT/HCPCS: 71045; 73030; 80048; 84484; 85025; 85379; 93005; 99284; A4216

== ENCOUNTER → 2020-07-12 15:47 | Outpatient (CLI) | payer OTHER, SELFPAY | PROVIDERS: PCP Family Medicine; Visit Provider Internal Medicine Gastroenterology | DX: Z11.59 Encounter for screening for other viral diseases (principal) | CPT/HCPCS: 87635; C9803; U0002 ==

== ENCOUNTER → 2020-07-20 | Outpatient (CLI) | payer OTHER, SELFPAY ==
--- NOTE | 2020-07-19 | IMM_PTH ---
PATIENT: LINN PARNELL LOC: [facility] U#:[id number] AGE/SX: 55/F ROOM: RE07/20/[address]: Dr. Thomas Cm MD : 1965 BED: DIS: 07/20/2020 SPEC #: [id number] RECD: 07/21/20 10:23 STATUS: JASIEL REQ #: [id number] AYLEEN: 07/19/20 00:[address]: Thomas Cm DEPT: IMMUNOHISTOCHEMISTRY RECD BY: Bonny Rivera ENTERED: 07/21/20 10:27 SP TYPE: IMMUNO OTHR DR: Dr. Ernesto Quigley MD Tissues: A - Esophagus, NOS Procedures: P53 (add) KI-67 (initial) PHYSICIAN & INSTITUTION [place] [id number] SPECIMEN INFORMATION: Tissue Source: A - Distal esophageal biopsy Clinical Info: Salomon's Specimen Number: [id number] CPT code: 34840, 15599 METHODOLOGY: Deparaffinized sections of prefer/formalin-fixed tissue or PAP/DQ stained slides are incubated with monoclonal/polyclonal antibodies/oligonucleotide probes. Localization is made via biotin free immunoperoxidase method. Appropriate controls are performed and reacted as expected. Results on target cell population are indicated in the following table: RESULTS: ANTIBODY / CLONE RESULT Block A P53 (DO-7) negative Ki-67 (30-9) positive, low These tests were developed and their performance characteristics determined by [facility]. They may not have been cleared or approved by the U.S. Food and Drug Administration. The FDA has determined that such clearance or approval is not necessary. The above immunohistochemical/dualISH markers are ordered and reviewed by the Pathologist. INTERPRETATION: A. Distal esophageal biopsy: No evidence of dysplasia. AM:josephine 07/22/2020
--- NOTE | 2020-07-19 | EGD_PTH ---
PATIENT: LINN PARNELL LOC: [facility] U#:[id number] AGE/SX: 55/F ROOM: RE07/20/[address]: Dr. Thomas Cm MD : 1965 BED: DIS: 07/20/2020 SPEC #: [id number] RECD: 07/20/20 10:40 STATUS: JASIEL REQ #: [id number] AYLEEN: 07/19/20 00:[address]: Thomas Cm DEPT: SURGICAL PATHOLOGY RECD BY: Stanley Urbina ENTERED: 07/20/20 10:41 SP TYPE: EGD BIOPSY OT DR: Dr. Ernesto Quigley MD [facility] Tissues: A - Esophageal mucous membrane B - Esophageal mucous membrane Procedures: Special Stain Group II Surgery Specimen Level IV Alcian Blue/PAS (control) HEADER OPERATION: EGD with biopsies PRE-OP DIAGNOSIS: Salomon's TISSUE SUBMITTED: A - Distal esophageal biopsies, rule out Salomon's/dysplasia B - Mid esophageal biopsy, rule out Salomon's/dysplasia MICROSCOPIC DIAGNOSIS A. 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 No evidence of dysplasia. See comment. B. Mid esophagus, biopsy: Fragments of benign squamous mucosa. No evidence of inflammation. No evidence of Salomon's esophagus. AM:josephine 07/21/2020 COMMENT A. Immunohistochemistry ([id number]) supports the above diagnosis. Alcian blue/PAS stain with matched control supports the above diagnosis. MICROSCOPIC DESCRIPTION Slides are reviewed. GROSS DESCRIPTION A - Received in fixative is one container labeled with the patient's name and designated distal esophageal biopsy. The specimen consists of multiple irregular fragments of light steele soft tissue that in aggregate measure 1 x 0.7 x 0.1 cm. The specimen is totally submitted in one cassette. B - Received in fixative is one container labeled with the patient's name and designated mid esophageal biopsy. The specimen consists of two irregular fragments of light steele soft tissue that in aggregate measure 0.6 x 0.3 x 0.1 cm. The specimen is totally submitted in one cassette. / MONA:josephine 07/20/20 TC:5 CPT: 86132 x2, 21916
== END | disposition home or self-care (01) ==
LOC: LABSPEC 10:19
PROVIDERS: PCP Family Medicine; Referring Provider Internal Medicine Gastroenterology; Visit Provider Internal Medicine Gastroenterology
DX: K22.70 Barrett's esophagus without dysplasia (principal)
CPT/HCPCS: 88305; 88313; 88341; 88342

== ENCOUNTER 2020-11-11 12:38 | Emergency (ER) | payer OTHER, SELFPAY ==
[2020-11-11 12:39] VITALS: BP 126/77; PULSE 82; RESP 16; TEMP 36.5; O2SAT 96; BMI 44.4
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
[2020-11-11] MEDS: HYDROmorphone 0.5 MG/0.5 ML SYRINGE IV (12:56)
--- NOTE | 2020-11-11 13:10 | RAD_ITS ---
STUDY: X-RAY - LEFT CLAVICLE REASON FOR EXAM: Left clavicle pain, left clavicle injury. TECHNIQUE: 2 view(s) of the clavicle. COMPARISON: Radiographs 03/31/2020. FINDINGS: There is a mildly comminuted mildly angulated mid clavicular fracture. There is acromioclavicular arthrosis. Normal visualized sternoclavicular articulation. Normal visualized pulmonary apex. RAD/Clavicle IMPRESSION: Clavicle fracture. Acromioclavicular arthrosis. Electronically Signed: Yossi Buck MD at 13:39 EDT Tel , Service support ,
[2020-11-11 13:58] VITALS: PULSE 88; RESP 17; O2SAT 97
== END 2020-11-11 13:59 | disposition home or self-care (01) ==
PROVIDERS: Emergency Provider Emergency Medicine; PCP Family Medicine
DX: S42.022A Displaced fracture of shaft of left clavicle, initial encounter for closed fracture (principal); S00.03XA Contusion of scalp, initial encounter; R40.2422 Glasgow coma scale score 9-12, at arrival to emergency department; V89.2XXA Person injured in unspecified motor-vehicle accident, traffic, initial encounter; Y93.9 Activity, unspecified; Y92.9 Unspecified place or not applicable; Y99.9 Unspecified external cause status; I10 Essential (primary) hypertension; E66.9 Obesity, unspecified; F17.210 Nicotine dependence, cigarettes, uncomplicated; Z79.899 Other long term (current) drug therapy
CPT/HCPCS: 73000; 96374; 99284; A4216

== ENCOUNTER → 2020-12-20 08:16 | Outpatient (CLI) | payer OTHER, SELFPAY | PROVIDERS: PCP Family Medicine; Referring Provider Family Medicine; Visit Provider Family Medicine | DX: R69 Illness, unspecified (principal) ==

== ENCOUNTER 2020-12-30 10:00 | Outpatient (RCR) | payer OTHER, SELFPAY ==
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
--- NOTE | 2020-12-30 10:12 | HP.PTREVAL ---
Dr. Crow Joyce, DO, It has been my pleasure to treat LINN PARNELL over the last 5 visits for L clavicle fx. Please see the progress note below for an update on the physical therapy plan of care! Subjective: Hurt all day and kept up at night after last session with pain to 6/10. Still a little sore but much better than it was after last session Objective/Function: Full aROM L shoulder, some mild transient end range pain with flexion, ext rot and IR but good full motion. Eccentric lowering slightly painful anteriorly trasniently. Strength with flexion and abd 3+ and IR 4, ER 4-. Most discomfort is anteriorly with flexion abd. jet dyeing machine tender to paklpation pec and clavicle L. Pt had too much soreness after strengtghening of cuff and postural muscles last session. will hold on that until doctor visit today verifies integrity of healing. Overall doing very well with ROM and function in front of her but still weak and intermittently sore. Plan Plan: Anticipate doctor visit to go well and pat to continue therapy for slow progression of strength as pain allows. 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 Will await doctor f/u then likely continue 2x/week x 2 weeks for progression of strength to tolkerance. Balance/Gait/Functional tests - Balance/Special Test Scores Quick DASH Score: 70.4525 Goals Goal 1:: Full aROM L shoulder without pain Goal Time Frame: 2-4 Weeks Goal Progress: slight end range pain. Goal 2:: Pt initiate strength ex without pain or problems Goal Time Frame: 2-4 Weeks Goal Progress: sore Goal 3:: Pt ready to return to work without imitations Goal Time Frame: 2-4 Weeks Goal Progress: clinically met Goal 4:: Pt feel back to 90% of home activities including lifting water bottle gallon without pain or reservation. Goal Time Frame: 4-6 Weeks Goal Progress: 40% Anticipated Interventions Patient/Client Instruction: Educate patient on: Condition, Plan of Care For the Purpose of:: To decrease pain, To increase ROM, To improve muscle performance and motor function, To increase tolerance to activity/condition/position Therapeutic Exercise to Include: Strength training, Postural training, Flexibilty training, Passive ROM, Active ROM For the Purpose of:: To decrease pain, To increase ROM, To improve muscle performance and motor function, To increase tolerance to activity/condition/position, To improve ability of physical actions for home/community/work/leisure Manual Therapy Techniques to Include: Mobilization, Passive ROM For the Purpose of:: To decrease pain, To increase ROM TENS: Yes Thermo therapy (hot pack): Yes For the Purpose of:: To decrease pain Please do not hesitate to contact me at [phone] by phone or if you have questions or concerns regarding this new plan of care! Sincerely, Rodrigo Hoffman, DPT, OCS, CSCS
--- NOTE | 2021-03-07 14:36 | HP.PT.NRP ---
LINN PARNELL was seen in my office for initial evaluation on 12/15/20. The following Plan of Care was established for this patient: Initial Frequency: 1-2x /Week Initial Duration: 4-6 Weeks Patient/Client Instruction: Educate patient on: Condition, Plan of Care For the Purpose of:: To decrease pain, To increase ROM, To improve muscle performance and motor function, To increase tolerance to activity/condition/position Therapeutic Exercise to Include: Strength training, Postural training, Flexibilty training, Passive ROM, Active ROM For the Purpose of:: To decrease pain, To increase ROM, To improve muscle performance and motor function, To increase tolerance to activity/condition/position, To improve ability of physical actions for home/community/work/leisure Manual Therapy Techniques to Include: Mobilization, Passive ROM For the Purpose of:: To decrease pain, To increase ROM TENS: Yes Thermo therapy (hot pack): Yes For the Purpose of:: To decrease pain This patient was last seen in our office 12/30/20. Pertinent comments regarding their Physical therapy will appear below: Pt seen 5 visits of POC and was 40% better. Has not attended any visits since that time. Will discontinue as I have seen her at work and not planning on returning to PT. At this point I will be discontinuing this patient from physical therapy. I would be happy to see this patient again in the future if found appropriate by the physician. Thank you! Rodrigo Hoffman, DPT, OCS, CSCS Balance/Gait/Functional tests - Balance/Special Test Scores Quick DASH Score: 70.4507
== END 2020-12-30 19:00 | disposition home or self-care (01) ==
LOC: PT 10:00
PROVIDERS: PCP Family Medicine; Referring Provider Orthopaedic Surgery; Visit Provider Orthopaedic Surgery
DX: S42.022D Displaced fracture of shaft of left clavicle, subsequent encounter for fracture with routine healing (principal)
CPT/HCPCS: 97014; 97110; 97161; 97530; G0283

== ENCOUNTER 2021-01-14 22:23 | Emergency (ER) | payer OTHER, SELFPAY ==
[2021-01-14 22:24] VITALS: BP 156/97; PULSE 94; RESP 18; TEMP 36.2; O2SAT 100; BMI 43.2
--- NOTE | 2021-01-14 22:44 | EKG12_ITS ---
Test Reason : DYSRHYTHMIA Blood Pressure : / mmHG Vent. Rate : 081 BPM Atrial Rate : 081 BPM P-R Int : 154 ms QRS Dur : 082 ms QT Int : 380 ms P-R-T Axes : 048 -06 032 degrees QTc Int : 441 ms Normal sinus rhythm Low voltage QRS Borderline ECG Confirmed by KEYA GOMEZ, MARGARET ([id number]), editor at large MICHAEL CRABTREE ([id number]) on 01/17/2021 11:38:54 AM Referred By: BB Confirmed By:MARGARET LAURA MD
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
[2021-01-14 23:14] LABS: Bacteria 0 SEEN /hpf (None Seen); Mucous, Urine 0 SEEN /hpf (<or=2+); Red Blood Cells-Urine 0 SEEN /hpf (0-5); White Blood Cells 0 SEEN /hpf (0-5)
[2021-01-14 23:18] LABS: Color, Urine Yellow (Yellow); Glucose, Dipstick Normal (Normal); Ketone-Dipstick Negative (Negative); Leukocyte Esterase-Dipstick Negative /ul (Negative); Nitrite-Dipstick Negative (Negative); Occult Blood-Urine 10 /ul (Negative); Protein-Dipstick Negative (Negative); Urine Bilirubin Dipstick Negative (Negative); Urine Clarity Clear (Clear); Urine Urobilinogen Normal (Normal)
[2021-01-14 23:23] LABS: Absolute Lymphocyte Count 1.97 X10^3/uL (0.83-4.51); Absolute Neutrophil Count 5.6 X10^3/uL (2.0-7.7); Basophil# 0.05 X10^3/uL; Basophil% 0.6 % (0-1); Eosinophil# 0.27 X10^3/uL; Eosinophils% 3.2 % (0-5); Hematocrit 43.4 % (37-47); Hemoglobin 14.1 g/dL (12.0-15.0); Lymphocyte # 1.97 X10^3/ul (0.83-4.51); Lymphocyte % 23.1 % (19-41); Mean Corp Hgb Conc 32.5 g/dL (32-36); Mean Corpuscular Hgb 29.9 pg (27.0-32.0); Mean Corpuscular Volume 92.1 fL (81-99); Mean Platelet Vol. 9.6 fl (6.2-12.0); Monocyte# 0.62 X10^3/uL; Monocyte% 7.3 % (0-10); NRBC Flagged by Analyzer 0 % (0-5); Neutrophil # 5.59 X10^3/uL (2.7-7.7); Neutrophil % 65.6 % (47-70); Platelet Count 268 K/mm3 (150-450); RBC Distribution Width CV 12.9 % (11.6-14.6); RBC Distribution Width SD 43.9 fl (35.1-43.9); Red Blood Count 4.71 M/mm3 (4.2-5.4); White Blood Count 8.5 K/mm3 (4.4-11.0)
[2021-01-14 23:42] LABS: Squamous Epithelial Cells - UA 0-5 SEEN /hpf (5-10)
[2021-01-14 23:44] LABS: Anion Gap 3 (5-15); BUN 15 mg/dL (7-18); BUN/Creat Ratio 22.9 RATIO (10-20); Calcium,Total 9.3 mg/dL (8.5-10.1); Chloride 104 mmol/L (98-107); Creatinine, Serum 0.65 mg/dL (0.55-1.02); EST Glomerular Filtration Rate 99 mL/min (>60); Est Glom Filt Rate - Afr Amer 120 mL/min (>60); Estimated Creatinine Clearance 85.93 ml/min; Glucose 109 mg/dL (74-106); Potassium 4.4 mmol/L (3.5-5.1); Sodium Level 135 mmol/L (136-145); Troponin-I HS 5 pg/mL (3.0-54.0)
[2021-01-15 00:17] VITALS: BP 131/76
== END 2021-01-15 00:17 | disposition home or self-care (01) ==
PROVIDERS: Emergency Provider Emergency Medicine; PCP Family Medicine
DX: I10 Essential (primary) hypertension (principal); F32.9 Major depressive disorder, single episode, unspecified; F41.9 Anxiety disorder, unspecified; F17.210 Nicotine dependence, cigarettes, uncomplicated; Z79.899 Other long term (current) drug therapy
CPT/HCPCS: 80048; 81001; 84484; 85025; 93005; 99285; A4216

== ENCOUNTER → 2021-01-28 08:29 | Outpatient (CLI) | payer OTHER, SELFPAY | PROVIDERS: PCP Family Medicine; Referring Provider Orthopaedic Surgery; Visit Provider Orthopaedic Surgery | DX: Z00.00 Encounter for general adult medical examination without abnormal findings (principal) ==

== ENCOUNTER 2021-02-07 11:40 | Emergency (ER) | payer OTHER, SELFPAY ==
[2021-02-07 11:41] VITALS: BP 158/112; PULSE 110; RESP 18; TEMP 36.4; O2SAT 96; BMI 41.5
--- NOTE | 2021-02-07 12:19 | EDS_ITS ---
HPI HPI - Psych History of Present Illness Chief Complaint: Anxiety Informant: patient Onset/Context/Timing Onset: Weeks Context: Gradual Onset Timing: Continuous Current Severity: Mild Maximum Severity: Moderate Associated Symptoms Associated Symptoms - Psych: Positive for Depressed, Change in Eating and Change in sleeping; Negative for Suicidal Thoughts, Flight of Ideas, Agitated, Angry, Hostile, Threatening, Confusion, Paranoia, Visual Hallucinations and Auditory Hallucinations Narrative Narrative: 55-year-old female history of hypertension, high cholesterol and reflux. Over the last several months has lost her [place]-fz-rdu and her mother . She states she has been more depressed. And also anxious. Decreasing sleep. Decreasing appetite. She denies being suicidal. She has used Ativan to help with acute anxiety but she was open to get something for depression. Prior similar symptoms: Yes Recent Illness/Hospitalization: No [facility] Medical History Acute diverticulitis Hypertension Home Medications lisinopril-hydrochlorothiazide 10 - 12.5 mg PO DAILY 12/28/16 [History Last Taken 04/17/17] rosuvastatin 10 mg tablet 10 mg PO QODAY 08/02/17 [History Last Taken Unknown] dexlansoprazole 60 mg PO DAILY 03/31/20 [History Last Taken Unknown] lorazepam [Ativan] 1 mg PO DAILY PRN 5 Days #5 tab 02/07/21 [Rx Last Taken Unknown] venlafaxine [Effexor XR] 37.5 mg PO DAILY 60 Days #60 cap 02/07/21 [Rx Last Taken Unknown] Allergy/AdvReac Type Severity Reaction Status Date / Time morphine Allergy Hives Verified 02/07/21 11:43 naproxen Allergy Hives Verified 02/07/21 11:43 Family History Sister Hypertension Diabetes Mother Hypertension Vulva cancer Brother Pancreatic cancer Surgical History History of cholecystectomy History of colon resection Social History household members: none housing: house current occupational status: employed current occupation: [employer]: [employer] Smoking Status: Current every day smoker tobacco type: cigarettes Tobacco: How many years used: 20 alcohol intake: never substance use type: does not use what type of physical activity do you participate in: none seatbelt use: always do you feel safe at home: Yes ROS ROS ED ROS Narrative Denies except symptoms consistent with anxiety and depression. Review of Systems ROS Unobtainable: Denies due to encephalopathy Constitutional Constitutional ED: Denies fever(s) Eyes Eyes: Denies change in vision ENT ENT ED: Denies ear pain Cardiovascular Cardiovascular: Reports palpitations; Denies chest pain Respiratory/Chest Respiratory/Chest: Denies dyspnea Gastrointestinal Gastrointestinal: Denies abdominal pain Genitourinary Genitourinary ED: Denies dysuria Musculoskeletal Musculoskeletal: Denies myalgias Integumentary Denies rash Neurologic Neurologic: Denies headache(s) Psychiatric Psychiatric: Reports anxiety and depression; Denies suicidal ideation or suicidal thoughts Endocrine Endocrinology: Denies polyuria Hematologic/Lymphatic Hematologic/Lymphatic: Denies easy bruising Allergic/Immunologic Allergic/Immunologic ED: Denies urticaria EXAM Physical Exam Narrative Exam Narrative: Well-appearing middle-aged female. No acute distress. Anxious and depressed. Tearful at times. Makes eye contact. Denies being suicidal. HEENT, neck, heart, lung exam unremarkable. Abdomen soft nontender. Moving all 4 extremities. No edema. Neurologically awake and alert. No focal motor deficits. Const Vital Signs: 02/07/21 11:41 Temperature 97.6 F L Temperature Source Temporal Pulse Rate 110 H Respiratory Rate 18 Blood Pressure 158/112 H Blood Pressure Mean 127 Pulse Ox 96 Oxygen Delivery Method Room Air Positive well developed; Negative for cachectic, contractures or unkempt General Appearance ED: well developed and NAD; Negative for unkempt, cachectic, contractures or pallor Nutritional Appearance: Negative for cachectic HEENT normocephalic Eyes PERRL and EOMs intact bilaterally Neck no lymphadenopathy, supple and no JVD General: Negative for tenderness Resp normal respiratory effort and clear to auscultation bilaterally Auscultation: Negative for rales, rhonchi or wheezes Cardio S1 normal heart sound, S2 normal heart sound and no murmurs Rate: regular rate Rhythm: regular rhythm GI non-tender, non-distended and no masses Inspection: Negative for abdominal distention Auscultation: normoactive bowel sounds Palpation: soft; Negative for tender or guarding Back/Spine no CVA tenderness General Back: Negative for CVA tenderness Extremity normal to inspection General Extremety ED: Negative for edema or tenderness General Extremity: Negative for edema Neuro oriented x3 and CN's II-XII intact bilaterally Sensorium / Orientation: alert, oriented to person, oriented to place, oriented to time and orientation impaired; Negative for confused, lethargic or stuporous Motor Exam: strength 5/5 throughout Psych mental status grossly normal, thought process normal, speech normal and denies suicidal ideation Appearance: Negative for unkempt Skin General Skin Exam: Negative for jaundice or pallor Lesions: no lesions Rashes: no rashes MDM MDM MDM Narrative Medical decision making narrative: 55-year-old female with anxiety and depression. Has recent loss of family members including her mom who lived with her in the past. Patient denies being suicidal. She will be written for prescription of Effexor and limited Ativan 5 and follow-up with her primary care physician. Also have the social service worker discuss with her other options. Discharge Plan Triage Chief Complaint: Anxiety ED Provider: Troy Moffett Dx/Rx/DC Orders Clinical Impression: Depression Instructions: ED Depression, ED Panic Attack Prescriptions: New venlafaxine [Effexor XR] 37.5 mg capsule,extended release 24hr 37.5 mg PO DAILY 60 Days Qty: 60 RF: 0 lorazepam [Ativan] 1 mg tablet 1 mg PO DAILY PRN (Reason: anxiety) 5 Days Qty: 5 RF: 0 No Action rosuvastatin [Crestor] 10 mg tablet 10 mg PO QODAY RF: 0 lisinopril-hydrochlorothiazide 1 EACH tablet 10 - 12.5 mg PO DAILY RF: 0 dexlansoprazole 60 MG capsule,biphase delayed releas 60 mg PO DAILY RF: 0 Primary Care Provider: Ernesto Quigley Referrals: Ernesto Quigley MD [Primary Care Provider] - As soon as possible Activity Restrictions/Additional Instructions: Effexor 1 pill daily this may take several weeks to take effect to help with the depression. Ativan as needed for anxiety. Do not drive or drink while using Ativan Follow-up with your primary care physician for reevaluation and further prescriptions. Return if you are feeling worse. Disposition Disposition: Home, Self Care
--- NOTE | 2021-02-07 12:20 | CM.ED ---
SOCIAL WORK Referral Source: Nursing Reason for Consult: Support, resources Met with patient in room. Introduced role and reason for referral. Patient presents to ER with anxiety. Patient reports recent loss of [id number] and mother. Patient states increase in anxiety and inability to work due to anxiety. Patient states has been seeing a counselor through [facility], [place]. Patient states next appointment is this week. Discussed follow up with hospice since mother's passing. Patient reports will call [facility] to discuss services for bereavement counseling. Patient denies any suicidal or homicidal ideation, plan, or intent. Much emotional support and active listening provided throughout. Plan: Home with resources provided Joseph Gerber MSW, [employer]
[2021-02-07 12:44] VITALS: PULSE 104; RESP 16; O2SAT 97
== END 2021-02-07 12:44 | disposition home or self-care (01) ==
PROVIDERS: Emergency Provider Emergency Medicine; PCP Family Medicine
DX: F32.A Depression, unspecified (principal); F41.9 Anxiety disorder, unspecified; I10 Essential (primary) hypertension; E78.00 Pure hypercholesterolemia, unspecified; F17.210 Nicotine dependence, cigarettes, uncomplicated; Z79.899 Other long term (current) drug therapy
CPT/HCPCS: 99282

== ENCOUNTER → 2021-03-04 12:32 | Outpatient (CLI) | payer OTHER, SELFPAY ==
--- NOTE | 2021-03-04 12:36 | RAD_ITS ---
STUDY: X-RAY - LEFT CLAVICLE REASON FOR EXAM: Female, 55 years old. Pain, known fracture TECHNIQUE: 2 view(s) of the clavicle. COMPARISON: 01/28/2021 FINDINGS: Once again identified is a angulated fracture in the midshaft of the left clavicle. Little significant if any healing has occurred since the previous study suggesting at this point it is likely a nonunion. There is anatomic alignment of the humeral and a chromic clavicular joints. There are healing left upper rib fractures. RAD/Clavicle IMPRESSION: No change in the appearance of a previously described angulated fracture in the midshaft of the left clavicle. Findings suggest nonunion Anatomic alignment of the glenohumeral and acromioclavicular joints Healing left upper rib fractures, no pneumothorax Electronically Signed: Stephon Holcomb MD at 13:20 EST , Service support ,
== END ==
PROVIDERS: PCP Family Medicine; Visit Provider Orthopaedic Surgery
DX: S42.022D Displaced fracture of shaft of left clavicle, subsequent encounter for fracture with routine healing (principal); X58.XXXD Exposure to other specified factors, subsequent encounter
CPT/HCPCS: 73000

== ENCOUNTER → 2021-03-22 16:40 | Outpatient (CLI) | payer OTHER, SELFPAY ==
--- NOTE | 2021-03-22 16:31 | BI_ITS ---
MAMMOGRAPHY - BILATERAL SCREENING REASON FOR EXAM: Female, 55 years old. Routine annual screening examination. PERTINENT HISTORY: Non-contributory. TECHNIQUE: Digital bilateral breast clemente (3D mammographic acquisition) in the CC and MLO projections. 2-D mediolateral oblique (MLO) and craniocaudad (CC) views of both breasts were obtained. CAD: Full Field Digital Mammography with Computer Added Detection was performed. COMPARISON: Comparison is made with prior study dated 03/16/2020 and 03/13/2019. FINDINGS: Breast Composition: The breasts are almost entirely fatty. There are no dominant masses or suspicious calcifications. No other significant abnormalities are identified. There has been no significant change since the prior study. BI/SCRN MAMM (CAD)W/CLEMENTE BILAT IMPRESSION: Stable bilateral screening mammogram. Yearly follow-up mammogram recommended. (A) ASSESSMENT CATEGORY: BIRADS Category 1: Negative. A letter regarding these results will be sent to the patient by the facility within 30 days. Approximately 10% of breast cancers are not detected by mammography. A normal mammogram should not delay biopsy of a clinically suspicious abnormality. [id number] Electronically Signed: Jamel Sanders MD at 8:50 EST , Service support ,
== END ==
PROVIDERS: PCP Family Medicine; Referring Provider Family Medicine; Visit Provider Family Medicine
DX: Z12.31 Encounter for screening mammogram for malignant neoplasm of breast (principal)
CPT/HCPCS: 77063; 77067

== ENCOUNTER → 2021-09-18 | Outpatient (CLI) | payer OTHER, SELFPAY ==
[2021-09-20 11:19] LABS: Bacteria 0 SEEN /hpf (None Seen); Mucous, Urine 0 SEEN /hpf (<or=2+)
[2021-09-20 11:41] LABS: Color, Urine Yellow (Yellow); Glucose, Dipstick Normal (Normal); Ketone-Dipstick Negative (Negative); Leukocyte Esterase-Dipstick 500 /ul (Negative); Nitrite-Dipstick Negative (Negative); Occult Blood-Urine 50 /ul (Negative); Protein-Dipstick Negative (Negative); Urine Bilirubin Dipstick Negative (Negative); Urine Clarity Clear (Clear); Urine Urobilinogen Normal (Normal); Urine pH 6.5 (5.0 - 8.0)
[2021-09-20 12:16] LABS: Red Blood Cells-Urine 0-5 SEEN /hpf (0-5); Squamous Epithelial Cells - UA 0-5 SEEN /hpf (5-10); White Blood Cells 25-50 SEEN /hpf (0-5)
== END | disposition home or self-care (01) ==
LOC: LABSPEC 09-20 11:02
PROVIDERS: PCP Family Medicine; Referring Provider Physician Assistant; Visit Provider Physician Assistant
DX: R30.9 Painful micturition, unspecified (principal)
CPT/HCPCS: 81001; 87086; 87088; 87186

== ENCOUNTER → 2021-12-05 | Outpatient (CLI) | payer OTHER, SELFPAY ==
[2021-12-05 10:13] LABS: Vitamin B12 450 pg/mL (211-911)
[2021-12-05 10:19] LABS: Hemoglobin A1c 5.9 % (3.8-5.6)
[2021-12-05 10:26] LABS: Thyroid Stim Hormone (TSH) 0.58 uIU/mL (0.358-3.74)
== END | disposition home or self-care (01) ==
PROVIDERS: PCP Family Medicine
DX: E78.5 Hyperlipidemia, unspecified (principal); R53.83 Other fatigue
CPT/HCPCS: 36415; 82607; 83036; 84443

== ENCOUNTER → 2022-04-19 | Outpatient (CLI) | payer OTHER, SELFPAY ==
--- NOTE | 2022-04-19 15:54 | BI_ITS ---
MAMMOGRAPHY - BILATERAL SCREENING REASON FOR EXAM: Female, 56 years old. Routine annual screening examination. PERTINENT HISTORY: Non-contributory. TECHNIQUE: Digital bilateral breast clemente (3D mammographic acquisition) in the CC and MLO projections. 2-D mediolateral oblique (MLO) and craniocaudad (CC) views of both breasts were obtained. CAD: Full Field Digital Mammography with Computer Added Detection was performed. COMPARISON: Comparison is made with prior study dated 03/22/2021 and 03/16/2020. FINDINGS: Breast Composition: The breasts are almost entirely fatty. There are no dominant masses or suspicious calcifications. No other significant abnormalities are identified. There has been no significant change since the prior study. BI/SCRN MAMM (CAD)W/CLEMENTE BILAT IMPRESSION: Stable bilateral screening mammogram. Yearly follow-up mammogram recommended. (A) ASSESSMENT CATEGORY: BIRADS Category 1: Negative. A letter regarding these results will be sent to the patient by the facility within 30 days. Approximately 10% of breast cancers are not detected by mammography. A normal mammogram should not delay biopsy of a clinically suspicious abnormality. [id number] Electronically Signed: Jamel Sanders MD at 9:02 EST ,
== END | disposition home or self-care (01) ==
PROVIDERS: PCP Family Medicine
DX: Z12.31 Encounter for screening mammogram for malignant neoplasm of breast (principal)
CPT/HCPCS: 77063; 77067

== ENCOUNTER → 2022-11-30 | Outpatient (CLI) | payer OTHER, SELFPAY ==
--- NOTE | 2022-11-30 15:05 | RAD_ITS ---
STUDY: X-RAY - RIGHT WRIST REASON FOR EXAM: Female, 57 years old. Swelling and pain following a fall. TECHNIQUE: 3 view(s) of the wrist were obtained. COMPARISON: None. FINDINGS: Normal visualized distal radius and ulna. Normal radiocarpal articulation. Normal distal radioulnar articulation. Normal carpal bones. Normal carpal articulations. Normal carpometacarpal articulation of the thumb. Normal second through fifth carpometacarpal articulations. Normal visualized metacarpal bones. Soft tissue swelling. RAD/Wrist min 3 Views IMPRESSION: Soft tissue swelling. Electronically Signed: Jamel Sanders MD at 15:33 EDT ,
== END | disposition home or self-care (01) ==
LOC: MTRAD 15:04
PROVIDERS: PCP Family Medicine; Visit Provider Physician Assistant Surgical
DX: S66.911A Strain of unspecified muscle, fascia and tendon at wrist and hand level, right hand, initial encounter (principal); X58.XXXA Exposure to other specified factors, initial encounter
CPT/HCPCS: 73110

== ENCOUNTER → 2023-04-19 | Outpatient (CLI) | payer OTHER, SELFPAY ==
--- NOTE | 2023-04-19 12:39 | BI_ITS ---
MAMMOGRAPHY - BILATERAL SCREENING 3-D TOMOSYNTHESIS REASON FOR EXAM: Female, 57 years old. Routine annual screening mammogram. PERTINENT HISTORY: No significant family history. TECHNIQUE: 2-D mammograms and 3-D Tomosynthesis of the breast (s) were performed. CAD was performed. COMPARISON: April 19, 2022, March 22, 2021 FINDINGS: The breast composition is almost entirely fat. No dominant masses, suspicious microcalcifications, asymmetries, skin thickening or nipple retraction. BI/SCRN MAMM (CAD)W/CLEMENTE BILAT IMPRESSION: No interval change and no mammographic signs of malignancy. Routine yearly mammogram recommended. ASSESSMENT CATEGORY: BIRADS Category 1: Negative. A letter regarding these results will be sent to the patient by the facility within 30 days. FOLLOW UP RECOMMENDATION: Yearly follow up mammogram recommended. (A) Approximately 10% of breast cancers are not detected by mammography. A normal mammogram should not delay biopsy of a clinically suspicious abnormality. Electronically Signed: Lars Escalona MD at 15:16 EST ,
== END | disposition home or self-care (01) ==
LOC: OPBI 12:37
PROVIDERS: PCP Family Medicine; Referring Provider Nurse Practitioner Family; Visit Provider Nurse Practitioner Family
DX: Z12.31 Encounter for screening mammogram for malignant neoplasm of breast (principal)
CPT/HCPCS: 77063; 77067

== ENCOUNTER → 2023-10-24 | Outpatient (CLI) | payer OTHER, SELFPAY ==
[2023-10-24 12:38] LABS: Hematocrit 43.2 % (37-47); Hemoglobin 13.5 g/dL (12.0-15.0); Mean Corp Hgb Conc 31.3 g/dL (32-36); Mean Corpuscular Hgb 28.9 pg (27.0-32.0); Mean Corpuscular Volume 92.5 fL (81-99); Mean Platelet Vol. 10.4 fl (6.2-12.0); Platelet Count 258 K/mm3 (150-450); RBC Distribution Width CV 13.1 % (11.6-14.6); RBC Distribution Width SD 44.1 fl (35.1-43.9); Red Blood Count 4.67 M/mm3 (4.2-5.4); White Blood Count 10.4 K/mm3 (4.4-11.0)
[2023-10-24 13:12] LABS: ALB/GLOB Ratio 0.9 RATIO (0.9-2.4); AST(SGOT) 20 U/L (15-37); Alanine Aminotransfer ALT/SGPT 20 U/L (13-56); Albumin, Serum 3.6 g/dL (3.2-5.0); Alkaline Phosphatase 80 U/L (45-117); Anion Gap 6 (5-15); BUN 12 mg/dL (7-18); BUN/Creat Ratio 17.6 RATIO (10-20); Calcium,Total 9.2 mg/dL (8.5-10.1); Chloride 100 mmol/L (98-107); Creatinine, Serum 0.68 mg/dL (0.55-1.02); EST Glomerular Filtration Rate 93 mL/min (>60); Est Glom Filt Rate - Afr Amer 113 mL/min (>60); Globulin 3.9 g/dL (2.2-4.2); Glucose 119 mg/dL (74-106); Potassium 3.5 mmol/L (3.5-5.1); Protein, Total 7.5 g/dL (6.4-8.2); Sodium Level 140 mmol/L (136-145)
== END | disposition home or self-care (01) ==
LOC: LAB 11:27
PROVIDERS: PCP Family Medicine; Referring Provider Internal Medicine Cardiovascular Disease; Visit Provider Internal Medicine Cardiovascular Disease
DX: I27.20 Pulmonary hypertension, unspecified (principal)
CPT/HCPCS: 36415; 80053; 85027

== ENCOUNTER → 2024-04-18 | Outpatient (CLI) | payer OTHER, SELFPAY ==
[2024-04-18 10:26] LABS: Mean Corp Hgb Conc 31.1 g/dL (32-36); Mean Corpuscular Hgb 29.8 pg (27.0-32.0); Mean Corpuscular Volume 95.7 fL (81-99); Mean Platelet Vol. 10.6 fl (6.2-12.0); Platelet Count 203 K/mm3 (150-450); RBC Distribution Width CV 13.2 % (11.6-14.6); RBC Distribution Width SD 47.1 fl (35.1-43.9); White Blood Count 6.6 K/mm3 (4.4-11.0)
[2024-04-18 10:36] LABS: Mean Corp Hgb Conc 31.1 g/dL (32-36); Mean Corpuscular Hgb 29.8 pg (27.0-32.0); Mean Corpuscular Volume 95.7 fL (81-99); Mean Platelet Vol. 10.6 fl (6.2-12.0); Platelet Count 203 K/mm3 (150-450); RBC Distribution Width CV 13.2 % (11.6-14.6); RBC Distribution Width SD 47.1 fl (35.1-43.9); White Blood Count 6.6 K/mm3 (4.4-11.0)
[2024-04-18 11:31] LABS: Hemoglobin A1c 5.8 % (3.8-5.6)
[2024-04-18 11:48] LABS: ALB/GLOB Ratio 0.9 RATIO (0.9-2.4); AST(SGOT) 18 U/L (15-37); Alanine Aminotransfer ALT/SGPT 19 U/L (13-56); Albumin, Serum 3.5 g/dL (3.2-5.0); Alkaline Phosphatase 72 U/L (45-117); Anion Gap 0 (5-15); BUN 14 mg/dL (7-18); BUN/Creat Ratio 19.5 RATIO (10-20); Calcium,Total 9.5 mg/dL (8.5-10.1); Chloride 98 mmol/L (98-107); Creatinine, Serum 0.72 mg/dL (0.55-1.02); EST Glomerular Filtration Rate 88 mL/min (>60); Est Glom Filt Rate - Afr Amer 107 mL/min (>60); Globulin 3.9 g/dL (2.2-4.2); Glucose 97 mg/dL (74-106); Potassium 4.1 mmol/L (3.5-5.1); Protein, Total 7.4 g/dL (6.4-8.2); Sodium Level 136 mmol/L (136-145)
[2024-04-18 13:07] LABS: ALB/GLOB Ratio 0.9 RATIO (0.9-2.4); AST(SGOT) 22 U/L (15-37); Alanine Aminotransfer ALT/SGPT 18 U/L (13-56); Albumin, Serum 3.5 g/dL (3.2-5.0); Alkaline Phosphatase 73 U/L (45-117); Anion Gap 7 (5-15); BUN 13 mg/dL (7-18); BUN/Creat Ratio 17.8 RATIO (10-20); Bilirubin, Direct 0.12 mg/dL (0.00-0.30); Calcium,Total 9.2 mg/dL (8.5-10.1); Chloride 98 mmol/L (98-107); Cholesterol 152 mg/dL (200); Creatinine, Serum 0.73 mg/dL (0.55-1.02); EST Glomerular Filtration Rate 86 mL/min (>60); Est Glom Filt Rate - Afr Amer 104 mL/min (>60); Globulin 4.1 g/dL (2.2-4.2); Glucose 92 mg/dL (74-106); High Density Lipoprotein 58 mg/dL; LDH 199 U/L (84-246); Phosphorus 3.6 mg/dL (2.5-4.9); Potassium 4.2 mmol/L (3.5-5.1); Protein, Total 7.6 g/dL (6.4-8.2); Sodium Level 138 mmol/L (136-145); Triglycerides 92 mg/dL; Uric Acid 6.3 mg/dL (2.6-6.0); Very Low Density Lipoprotein 18 mg/dL (5-40)
[2024-04-18 13:56] LABS: Absolute Lymphocyte Count 1.23 X10^3/uL (0.83-4.51); Absolute Neutrophil Count 4.5 X10^3/uL (2.0-7.7); Basophil# 0.05 X10^3/uL; Basophil% 0.8 % (0-1); Eosinophil# 0.43 X10^3/uL; Eosinophils% 6.5 % (0-5); Lymphocyte # 1.23 X10^3/ul; Lymphocyte % 18.6 % (19-41); Monocyte# 0.37 X10^3/uL; Monocyte% 5.6 % (0-10); NRBC Flagged by Analyzer 0 % (0-5); Neutrophil # 4.53 X10^3/uL (2.7-7.7); Neutrophil % 68.3 % (47-70)
== END | disposition home or self-care (01) ==
LOC: MTLAB 08:07
PROVIDERS: PCP Family Medicine; Referring Provider Nurse Practitioner Family; Visit Provider Nurse Practitioner Family
DX: R63.5 Abnormal weight gain (principal)
CPT/HCPCS: 36415; 80053; 83036; 84443; 85027

== ENCOUNTER → 2025-04-17 | Outpatient (CLI) | payer OTHER, SELFPAY ==
--- OUTSIDE RECORDS SUMMARY | 2025-04-17 07:54 | XMS RPT_ITS | CCD ---
Author Organization [facility] Care Team Providers Care Sr. Logistics Analyst Name Role Phone Dann, Chinyere Attending Unavailable Stencel, Chinyere Primary Care Unavailable Stencel, Chinyere Attending Unavailable Stencel, Chinyere Primary Care Unavailable Stencel, Chinyere Attending Unavailable Stencel, Chinyere Primary Care Unavailable Stencel, Chinyere Attending Unavailable Stencel, Chinyere Primary Care Unavailable Wood, Jose Daniel L Attending Unavailable Stencel, Chinyere Primary Care Unavailable Wood, Jose Daniel L Admitting Unavailable Garfield Marie Consulting Unavailable Wood, Jose Daniel L Attending Unavailable Stencel, Chinyere Primary Care Unavailable Garfield Marie Attending Unavailable Stencel, Chinyere Primary Care Unavailable Stencel, Chinyere Unavailable Unavailable Stencel, Chinyere D Unavailable Unavailable Stencel, Chinyere Unavailable Unavailable Stencel, Chinyere D Unavailable [phone] Unavailable Unavailable Unavailable Unavailable Dann, Dr. Orozco Primary Care Provider Stentimo, Dr. Orozco Referring Provider SHADY Dumont Attending Provider Ms. Jose Daniel Mane Attending Unav ailable Stencel, Dr. Chinyere Tavera Primary Care Unava ilable Navneet, Ms. Jose Daniel Pozo Referring Unav ailable Wood, Ms. Jose Daniel Pozo Attending Unav ailable Stencel, Dr. Chinyere Tavera Primary Care Vickiva ilable Navneet, Ms. Jose Daniel Pozo Referring Unav ailable Wood, Ms. Jose Daniel Pozo Attending Unav ailable Stencel, Dr. Chinyere Tavera Primary Care Vickiva ilnatalee Mane, Ms. Jose Daniel Pozo Referring Unav ailable Stentimo, Dr. Chinyere Tavera Primary Care Vickiva ilable Navneet, Ms. Jose Daniel Pozo Attending Unav ailable Wood, Ms. Jose Daniel Pozo Referring Unav ailable Stencel Chinyere GOMEZ D Primary Care Provider Dr. Chinyere Quigley Primary Care Provider Dr. Chinyere Quilgey Referring Provider SHADY Dumont Attending Provider [phone] Wood DESKTOP SUPPORT CONSULTANT-[facility] Primary Care Provider Wood, Ms. Jose Daniel Nohelia Attending Unav ailable Wood, Ms. Jose Daniel Nohelia Primary Care Unav ailable Wood, Ms. Jose Daniel Nohelia Attending Unav ailable Wood, Ms. Jose Daniel Nohelia Primary Care Unav ailable Wood [facility] Primary Care Provider Wood CIRCULAR SAW EDGE FUSER, [place] Unavailable Iliana DESKTOP SUPPORT CONSULTANT.CIRCULAR SAW EDGE FUSER, Joanne Unavailable Amy WALDRON, Mani Unavailable [phone] Sharla Stokes LPN Unavailable Unavailable Wood [facility] Primary [facility] Provide r [place], JOSE DANIEL L Referring Unavailable [facility] Primary Care Unavailable CHINYERE QUIGLEY Primary Care Unavailable [facility] Primary Care Unavailable CONKLE-LAGROUX, KIKI Referring Unavaila ble [facility] Primary Care Unavailable GNOSTICISM, SAMMIAMMAD F Admitting Unavailable MALLAT, ALI F Consulting Unavailable MALLAT, ALI F Attending Unavailable CONKLE-LAGROUX, KIKI Attending Unavaila ble [facility] Primary Care Unavailable [facility] Primary Care Unavailable JONNY LANDEROS Admitting Unavailable JONNY LANDEROS Attending Unavailable Dr. Chinyere Quigley Primary Care Provider [phone] Dr. Chinyere Quigley Referring Provider Roof ASSEMBLER CAMPER, ASSEMBLER CAMPER-[place] Oscar Attending Provider ELROY CALVO Attending Unavailabl e [facility] Primary Care Unavailable ELROY CALVO Attending Unavailabl e [facility] Primary Care Unavailable ELROY CALVO Attending Unavailabl e [facility] Primary Care Unavailable ELROY CALVO Attending Unavailabl e [facility] Primary Care Unavailable ELROY CALVO Attending Unavailabl e [facility] Primary Care Unavailable ELROY CALVO Attending Unavailabl e WOOD, JOSE DANIEL Primary Care Unavailable ELROY CALVO Attending Unavailabl e WOOD, JOSE DANIEL Primary Care Unavailable ELROY CALVO Attending Unavailabl e WOOD, JOSE DANIEL Primary Care Unavailable Wood DESKTOP SUPPORT CONSULTANT-CIRCULAR SAW EDGE FUSER, Jose Daniel L Primary Care Provider Navneet DESKTOP SUPPORT CONSULTANT-CIRCULAR SAW EDGE FUSER, Jose Daniel Yañez Primary Care Provider WOOD, JOSE DANIEL L Attending Unavailable WOOD, JOSE DANIEL L Primary Care Unavailable WOOD, JOSE DANIEL L Attending Unavailable WOOD, JOSE DANIEL L Primary Care Unavailable Stencel, Chinyere Primary Care Unavailable WOOD, JOSE DANIEL Attending Unavailable WOOD, JOSE DANIEL Referring Unavailable Stencel, Chinyere Primary Care Unavailable WOOD, JOSE DANIEL Attending Unavailable WOOD, JOSE DANIEL Referring Unavailable Assessment, Health Risk Attending Unavaila ble Assessment, Health Risk Referring Unavaila ble Stencel, Chinyere Primary Care Unavailable Stencel, Chinyere Primary Care Unavailable WOOD, JOSE DANIEL Attending Unavailable WOOD, JOSE DANIEL Referring Unavailable Reena Montes Attending Unavailable Stencel, Chinyere Primary Care Unavailable Stencel, Chinyere Referring Unavailable Allergies Allergy Classification Reported Allergen(s) Allergy Type Date of Onset Reaction(s) Facility (1 source) Dicyclomine; Translations: [Bentyl] Drug Allergy [facility] Repository (20 sources) Morphine; Translations: [morphine] Drug Allergy 1 [facility] Repository (20 sources) Naproxen; Translations: [Anaprox] Drug Allergy [facility] Repository (1 source) Naproxen; Translations: [naproxen sodium] Drug Allergy [facility] Repository (20 sources) Naproxen; Translations: [Aleve] Drug Allergy [facility] Repository (20 sources) Simvastatin; Translations: [simvastatin] Drug Allergy 3 Unknown [facility] Repository (20 sources) Naproxen; Translations: [Naproxen Sodium CAPS] Drug Allergy 1 [facility] Work Phone: (10 sources) Amoxicillin / Clavulanate; Translations: [Amoxicillin-Pot Clavulanate TABS] Drug Allergy 3 [facility] (6 sources) Naproxen; Translations: [NAPROXEN] Drug Allergy 3 [facility] 2 Repository (3 sources) AMOXICILLIN-POT CLAVULANATE; Translations: [AMOXICILLIN-POT CLAVULANATE] Propensity to adverse reactions to drug (disorder) 3 [facility] 2 Repository Medications Current Medications Medication Drug Class(es) Dates Sig (Normalized) Sig (Original) [id number] 200 actuat albuterol 0.09 mg/actuat metered dose inhaler (20 sources) beta2-Adrenergic Agonist Start: 09-16-2024 take 2 puff(s) by inhalation every four hours for wheezing albuterol 90 mcg/actuation inhaler Indications: Wheezing Inhale 2 puffs every 4 hours if needed for wheezing. 18 g 11 09/16/2024 Active Start: 02-18-2024 take 2 puff(s) by in halation every four hours for wheezing albuterol 90 mcg/actuation inhaler Indications: Wheezing Inhale 2 puffs every 4 hours if needed for wheezing. 18 g 11 02/18/2024 Active Start: 06-14-2023 take 2 puff(s) by in halation every four hours for wheezing albuterol 90 mcg/actuation inhaler Indications: Wheezing Inhale 2 puffs every 4 hours if needed for wheezing. 18 g 11 06/14/2023 Active Start: 11-27-2022 End: 04-05-2023 take 2 puff(s) by inhalation every four hours for wheezing albuterol 90 mcg/actuation inhaler Indications: Wheezing Inhale 2 puffs every 4 hours if needed for wheezing. 18 g 3 04/05/2023 04/05/2023 Discontinued (Reorder) Start: 10-05-2022 take 2 puff(s) by in halation every four hours for wheezing albuterol 90 mcg/actuation inhaler Indications: Wheezing Inhale 2 puffs every 4 hours if needed for wheezing. 18 g 3 10/05/2022 Active Start: 09-08-2021 take 2 puff(s) by in halation every four to six hours as needed Albuterol Sulfate HFA 108 (90 Base) MCG/ACT Inhalation Aerosol Solution INHALE 2 PUFFS EVERY 4-6 HOURS NEEDED. Quantity: 1 Refills: 3 Ordered: 23-Mar-2022 Jose Daniel Diaz Start : 08-Sep-2021 Active take 2 puff(s) by in halation every four hours as needed for wheezing albuterol HFA (VENTOLIN HFA) 90 mcg/actuation inhaler Inhale 2 Puffs as instructed every 4 hours as needed for wheezing/shortness of breath. 0 Active Comment on above: Inhale 2 Puffs as in structed every 4 hours as needed for wheezing/shortness of breath. 12 hr buPROPion hydrochloride 150 mg extended release oral tablet (5 sources) Aminoketone Start: End: take 1 tablet by mouth twice daily buPROPion SR (Wellbutrin SR) 150 mg 12 hr tablet Take 1 tablet (150 mg) by mouth 2 times a day. 0 06/22/2022 02/22/2023 Discontinued (Therapy completed) Start: 06-22-2022 take 1 tablet by [facility] once daily, then take 1 tablet by mouth twice daily buPROPion HCl ER (SR) 150 MG Oral Tablet Extended Release 12 Hour TAKE 1 TABLET EVERY 12 HOURS DAILY. Quantity: 60 Refills: 3 Ordered: 22-Jun-2022 Jose Daniel Diaz Start : 22-Jun-2022 Active Start with Wellbutrin 1 tablet by mouth daily x3 days then 1 tablet twice daily x3 months cefdinir 300 mg oral capsule (1 source) Cephalosporin Antibacterial Start: 02-08-2023 End: 02-22-2023 cefdinir (Omnicef) 300 mg capsule cyclobenzaprine hydrochloride 10 mg oral tablet (3 sources) Muscle Relaxant Start: 04-18-2023 End: 04-17-2024 take 1 tablet by mouth three times daily as needed for muscle spasms cyclobenzaprine (Flexeril) 10 mg tablet Indications: Muscle spasm Take 1 tablet (10 mg) by mouth 3 times a day as needed for muscle spasms for up to 21 days. 63 tablet 2023 04/17/2024 Discontinued (Therapy completed) dexlansoprazole 60 mg delayed release oral capsule (20 sources) Proton Pump Inhibitor Start: 06-25-2020 Dexilant 60 MG Oral Capsule Delayed Release Quantity: 0 Refills: 0 Ordered: 25-Jun-2020 Chinyere Quigley MD Start : 25-Jun-2020 Active Start: 03-31-2020 take 1 capsule by [facility] once daily dexlansoprazole (Dexilant) [address] capsule Take 1 capsule (60 mg) by mouth once daily. 06/25/2020 Active Comment on above: Take 60 mg by mouth once daily. escitalopram 20 mg oral tablet (20 sources) Serotonin Reuptake Inhibitor Start: End: take 1 tablet by mouth once daily escitalopram (Lexapro) 20 mg tablet Indications: Anxiety and depression Take 1 tablet (20 mg) by mouth once daily. 90 tablet 3 04/17/2024 04/17/2025 Active Start: 03-03-2024 End: 04-17-2024 take 1 tablet by mouth once daily escitalopram (Lexapro) 10 mg tablet Indications: Anxiety and depression Take 1 tablet (10 mg) by mouth once daily. 90 tablet 3 03/03/2024 04/17/2024 Discontinued (Reorder) Start: 02-14-2021 End: 02-27-2023 take 1 tablet by mouth once daily escitalopram (Lexapro) 10 mg tablet Take 1 tablet (10 mg) by mouth once daily. 0 02/14/2021 Active Comment on above: Take 10 mg by mouth once daily. furosemide 20 mg oral tablet (20 sources) Loop Diuretic Start: 02-08-2023 End: 02-17-2025 take 1 tablet by mouth twice daily furosemide (Lasix) 20 mg tablet Indications: Pulmonary hypertension (Multi) Take 1 tablet (20 mg) by mouth 2 times a day. 180 tablet 3 02/18/2024 02/17/2025 Active Start: 01-04-2023 End: 02-22-2023 take 1 tablet by mouth twice daily furosemide (Lasix) 40 mg tablet Indications: Peripheral edema Take 1 tablet (40 mg) by mouth 2 times a day for 7 days. 14 tablet 0 01/04/2023 02/22/2023 Discontinued (Dose adjustment) Start: 11-09-2022 End: 11-27-2023 take 40 mg by mouth once daily Furosemide Active 40 MG PO DAILY November 29, 2022 11:00pm Comment on above: Take 1 tablet by carolyn th two times a day. gabapentin 300 mg oral capsule (20 sources) Anti-epileptic Agent Start: 01-09-2025 End: 07-08-2025 take 1 capsule by mouth three times daily gabapentin (Neurontin) 300 mg capsule Indications: Other polyneuropathy Take 1 capsule (300 mg) by mouth 3 times a day. 90 capsule 5 01/09/2025 07/08/2025 Active Start: 02-11-2023 gabapentin (NE URONTIN) 300 mg capsule Take 300 mg by mouth three times a day. Do not start before February 11, 2023. 0 02/11/2023 Active Start: 11-23-2022 End: 10-14-2024 take 1 capsule by mouth three times daily gabapentin (Neurontin) 300 mg capsule Indications: Other polyneuropathy Take 1 capsule (300 mg) by mouth 3 times a day. 90 capsule 5 04/17/2024 10/14/2024 Active Comment on above: Take 300 mg by mouth three times a day. Take 300 mg by mouth three times a day. Do not start before February 11, 2023. hydroCHLOROthiazide 12.5 mg / lisinopril 10 mg oral tablet (20 sources) Thiazide Diuretic, Angiotensin Converting Enzyme Inhibitor Start: 023 End: 025 take 1 tablet by mouth once daily lisinopriL-hydrochl orothiazide 10-12.5 mg tablet Indications: Secondary hypertension Take 1 tablet by mouth once daily. 90 tablet 3 02/18/2024 02/17/2025 Active Start: 12-28-2016 take 10-12.5 mg by mouth once daily Lisinopril-Hydrochlorothiazide Active 10 - 12.5 MG PO DAILY December 27, 2016 11:00pm take 10-12.5 mg by mouth once lisinopril-hydroCHLOROthiazide (ZESTORET IC) 10-12.5 mg per tablet Take 1 tablet by mouth once daily. 0 Suspended Comment on above: Take 1 tablet by carolyn once daily. lifitegrast 50 mg/ml ophthalmic solution (20 sources) Lymphocyte Function-Associated Antigen-1 Antagonist End: 04-17-2024 lifitegrast (Xiidra) 5 % dropperette Administer into affected eye(s) twice a day. 04/17/2024 Discontinued (Therapy completed) take 1 drop(s) into the eye(s) twice daily Xiidra 5 % Ophthalmic Solution INSTILL 1 DROP Twice daily Quantity: 0 Refills: 0 Ordered: 21-Apr-2019 DO Active LORazepam 1 mg oral tablet (20 sources) Benzodiazepine Start: 09-28-2023 End: 04-17-2024 LORazepam (Ativan) 1 mg tablet Indications: Anxiety Take 1 tablet (1 mg) by mouth if needed for anxiety. 30 tablet 09/28/2023 04/17/2024 Discontinued (Therapy completed) Start: 06-27-2023 LORazepam (Ati van) 1 mg tablet Indications: Anxiety Take 1 tablet (1 mg) by mouth if needed for anxiety. 30 tablet 0 06/27/2023 Active Start: 01-18-2021 End: 04-05-2023 take 1 tablet by mouth once daily Lorazepam (Ativan) 1 mg tablet Active 1 MG PO DAILY 5 February 06, 2021 11:00pm Comment on above: Take 1 mg by mouth a t bedtime as needed for anxiety. Take 1 mg by mouth a t bedtime as needed for anxiety. Do not start before February 11, 2023. meloxicam 7.5 mg oral tablet (10 sources) Nonsteroidal Anti-inflammatory Drug Start: take 1 tablet by mouth once daily meloxicam (Mobic) 7.5 mg tablet Indications: Pain in both lower extremities Take 1 tablet (7.5 mg) by mouth once daily. 30 tablet 3 09/16/2024 Active Start: 06-22-2022 End: 07-04-2024 take 1 tablet by mouth once daily meloxicam (Mobic) 7.5 mg tablet Indications: Pain in both lower extremities Take 1 tablet (7.5 mg) by mouth once daily. 30 tablet 11 2023 07/04/2024 Active oxyCODONE hydrochloride 5 mg oral tablet (6 sources) Opioid Agonist Start: 02-09-2023 End: 02-22-2023 oxyCODONE (Roxicodone) 5 mg immediate release tablet Comment on above: Take 1 tablet by carolyn once daily as needed (prior to dressing changes) for up to 7 days. microencapsulated potassium chloride 20 meq extended release oral tablet (1 source) Start: 01-04-2023 End: 01-11-2023 take 1 tablet by mouth once daily potassium chloride CR (Klor-Con M20) 20 mEq ER tablet Indications: Peripheral edema Take 1 tablet (20 mEq) by mouth once daily for 7 days. Do not crush, chew, or split. 7 tablet 0 01/04/2023 01/11/2023 Active rosuvastatin calcium 10 mg oral tablet (20 sources) HMG-CoA Reductase Inhibitor Start: 08-20-2013 End: 02-17-2025 take 1 tablet by mouth every other day rosuvastatin (Crestor) 10 mg tablet Indications: Hyperlipidemia, unspecified hyperlipidemia type Take 1 tablet (10 mg) by mouth every other day. 45 tablet 3 02/18/2024 02/17/2025 Active Comment on above: Take 10 mg by mouth every other day. SUMAtriptan 50 mg oral tablet (20 sources) Serotonin-1b and Serotonin-1d Receptor Agonist Start: 02-08-2023 End: 04-05-2023 SUMAtriptan (Imitrex) 50 mg tablet Indications: Migraine with aura and without status migrainosus, not intractable Take one tablet an onset of headache 9 tablet 3 04/05/2023 Active Comment on above: Take 1 tablet (50 mg ) by mouth as needed for migraine headache (see administration instructions). May repeat dose after 2 hours if needed. Maximum daily dose is 200 mg per day. Completed/Discontinued Medications Medication Drug Class(es) Dates Sig (Normalized) Sig (Original) acetaminophen 500 mg oral tablet (20 sources) Start: 02-08-2023 take 2 tablets by mouth every eight hours as needed acetaminophen (TYLENOL) 500 mg tablet Take 2 tablets by mouth every 8 hours as needed for pain or fever (specify). 30 tablet 0 02/08/2023 Active Comment on above: Take 2 tablets by [facility] every 8 hours as needed for pain or fever (specify). acetaminophen 325 mg / HYDROcodone bitartrate 5 mg oral tablet (3 sources) Opioid Agonist Start: 05-11-2017 End: 08-02-2017 take 1 tablet by mouth every four hours as needed Hydrocodone-Acetam inophen Discontinued 1 - 2 TABLET PO EVERY 4 HOURS NEEDED May 11, 2017 12:00am August 02, 2017 5:59am acetaminophen 325 mg / oxyCODONE hydrochloride 5 mg oral tablet (3 sources) Opioid Agonist Start: 11-11-2020 End: 11-25-2020 take 1 tablet by mouth every six hours as needed Oxycodone-Acetamin ophen Discontinued 1 TABLET PO EVERY 6 HOURS NEEDED 09 09November 11, 2020 November 25, 2020 9:01am amoxicillin 500 mg oral capsule (7 sources) Penicillin-class Antibacterial Start: 03-23-2022 take 1 capsule by mouth three times daily Amoxicillin 500 MG Oral Capsule TAKE 1 CAPSULE 3 TIMES DAILY UNTIL GONE. Quantity: 30 Refills: 0 Ordered: 23-Mar-2022 Jose Daniel Diaz Start : 23-Mar-2022 Active Start: 05-15-2018 End: 05-25-2018 take 1000 mg by mouth twice daily Amoxicillin Discontinued 1000 MG PO TWICE A DAY 40 May 15, 2018 12:00am May 25, 2018 12:09am amoxicillin 875 mg / clavulanate 125 mg oral tablet (8 sources) Penicillin-class Antibacterial Start: 03-19-2022 End: 03-23-2022 take 1 tablet by mouth every twelve hours Amoxicillin-Pot Clavulanate 875-125 MG Oral Tablet take 1 tablet by mouth every 12 hours for 10 days Quantity: 20 Refills: 0 Ordered: 19-Mar-2022 DO Start : 19-Mar-2022 End : 23-Mar-2022 Complete Start: 03-19-2022 End: 03-29-2022 take 1 tablet by mouth every twelve hours Amoxicillin-Pot Clavulanate Discontinued 1 TABLET PO Q12H 20 March 19, 2022 12:00am March 29, 2022 12:07am Start: 12-04-2017 End: 12-14-2017 take 1 tablet by mouth every twelve hours Amoxicillin-Pot Clavulanate (Augmentin) 875-125 mg tablet Discontinued 1 TABLET PO Q12H 20 December 03, 2017 11:00pm December 13, 2017 11:08pm aspirin 81 mg chewable tablet (3 sources) Platelet Aggregation Inhibitor, Nonsteroidal Anti-inflammatory Drug Start: 08-20-2013 End: 08-02-2017 take 81 mg by mouth once daily Aspirin Discontinued 81 MG PO DAILY@0800 August 19, 2013 11:00pm August 02, 2017 5:59am azithromycin 250 mg oral tablet (3 sources) Macrolide Antimicrobial Start: 12-07-2017 End: 04-28-2018 Azithromycin Discontinued 0 PO .COMPLEX 6 December 06, 2017 11:00pm April 28, 2018 8:26am take 500 mg today (day 1), then 250 mg for 4 days (days 2-5) PO benzonatate 100 mg oral capsule (7 sources) Non-narcotic Antitussive Start: 03-19-2022 take 2 capsules by mouth three times daily for cough Benzonatate 100 MG Oral Capsule take 2 capsules by mouth three times a day if needed for cough Quantity: 30 Refills: 0 Ordered: 19-Mar-2022 DO Start : 19-Mar-2022 Active Start: 03-19-2022 End: 11-30-2022 take 200 mg by mouth three times daily Benzonatate Discontinued 200 MG PO THREE TIMES A DAY March 19, 2022 12:00am November 30, 2022 1:58pm bumetanide 1 mg oral tablet (3 sources) Loop Diuretic take 1 tablet by mouth once daily bumetanide (BUMEX) 1 mg tablet Take 1 mg by mouth once daily. 0 Suspended Comment on above: Take 1 mg by mouth o nce daily. cephalexin 500 mg oral capsule (3 sources) Cephalosporin Antibacterial Start : 09-18 End: 11-30 take 500 mg by mouth twice daily Cephalexin Discontinued 500 MG PO TWICE A DAY September 17, 2021 11:00pm November 30, 2022 1:58pm dextromethorphan 60 mg extended release oral capsule (3 sources) Uncompetitive O-goodbl-F-aspartate Receptor Antagonist, Sigma-1 Agonist take 60 mg by mouth once daily dextromethorphan HBr (DEXALONE ORAL) Take 60 mg by mouth once daily. 0 Suspended Comment on above: Take 60 mg by mouth once daily. dicyclomine hydrochloride 10 mg oral capsule (3 sources) Anticholinergic Start : 08-21 End: 08-02 take 10 mg by mouth three times daily before mealtime Dicyclomine Discontinued 10 MG PO THREE TIMES DAILY BEFORE MEALS August 20, 2013 11:00pm August 02, 2017 5:59am esomeprazole 40 mg delayed release oral capsule (5 sources) Proton Pump Inhibitor Start : 08-20 End: 08-02 take 40 mg by mouth once daily Esomeprazole Magnesium Discontinued 40 MG PO DAILY August 19, 2013 11:00pm August 02, 2017 5:59am famotidine 20 mg oral tablet (20 sources) Histamine-2 Receptor Antagonist Start : 02-08 End: 11-02 -2023 take 1 tablet by mouth every twelve hours as needed famotidine (PEPCID) 20 mg tablet Take 1 tablet by mouth two times a day as needed (heartburn). 60 tablet 0 02/08/2023 Active Comment on above: Take 1 tablet by carolyn th two times a day as needed (heartburn). hydroCHLOROthiazide 12.5 mg oral tablet (20 sources) Thiazide Diuretic Start : 02-08 End: 02-22 take 1 tablet by mouth once daily hydroCHLOROthiazide 12.5 mg tablet Take 1 tablet by mouth once daily. 30 tablet 0 02/09/2023 Active Comment on above: Take 1 tablet by carolyn th once daily. hydrocortisone 25 mg/ml topical cream (1 source) Corticosteroid Start : 06-14 End: 07-04 hydrocortisone (Anusol-HC) 2.5 % rectal cream Indications: Hemorrhoids, unspecified hemorrhoid type Insert into the rectum 4 times a day as needed for hemorrhoids (rectal discomfort). Apply to affected areas 30 g 0 06/14/2023 2023 Discontinued (Therapy completed) hydrOXYzine pamoate 50 mg oral capsule (2 sources) Antihistamine Start : 02-14 End: 03-14 take 1 capsule by mouth four times daily as needed for anxiety hydrOXYzine Pamoate 50 MG Oral Capsule TAKE ONE (1) CAPSULE BY MOUTH FOUR TIMES A DAY NEEDED FOR ANXIETY Quantity: 360 Refills: 6 Ordered: 14-Feb-2021 Jose Daniel Diaz Start : 14-Feb-2021 End : 14-Mar-2021 Complete sodium hypochlorite 1.25 mg/ml topical solution (20 sources) Start : 02-08 sodium hypochlorite (DAKIN'S QUARTER STRENGTH) 0.125 % soln Irrigate 5 mL as instructed once daily. 500 mL 0 02/08/2023 Active Comment on above: Irrigate 5 mL as ins tructed once daily. L.Acidoph, Paracasei,B. Lactis (3 sources) Start : 12-28 End: 08-02 L.Acidoph, Paracasei,B. Lactis Discontinued 1 EACH PO DAILY December 28, 2016 12:00am August 02, 2017 6:59am Start: 12-28-2016 End: 08-02-2017 Margoth Langley B. Lact is Discontinued 1 EACH PO DAILY December 27, 2016 11:00pm August 02, 2017 5:59am lisinopril 10 mg oral tablet (20 sources) Angiotensin Converting Enzyme Inhibitor Start: 02-08-2023 End: 02-22-2023 take 1 tablet by mouth once daily lisinopril (ZESTRIL) 10 mg tablet Take 1 tablet by mouth once daily. 30 tablet 0 02/09/2023 Active Comment on above: Take 1 tablet by carolyn once daily. miconazole nitrate 0.02 mg/mg topical powder (20 sources) Azole Antifungal Start: 02-08-2023 miconazole 2 % powder Apply 1 application to affected area two times a day. 43 g 0 02/08/2023 Active Comment on above: Apply 1 application to affected area two times a day. 24 hr nicotine 0.875 mg/hr transdermal system (3 sources) Cholinergic Nicotinic Agonist Start: 06-22-2022 apply 1 dose transdermal route once daily Nicotine 14 MG/24HR Transdermal Patch 24 Hour APPLY 1 PATCH DAILY DIRECTED. Quantity: 14 Refills: 0 [facility]: [facility] Start : 22-Jun-2022 Active Start after completion of 21 mg patch x6 weeks Start: 06-22-2022 apply 1 dose transde rmal route once daily Nicotine 21 MG/24HR Transdermal Patch 24 Hour APPLY 1 PATCH DAILY DIRECTED. Quantity: 42 Refills: 0 [facility] : 22-[facility]22 Active Start: 06-22-2022 apply 1 dose transde rmal route once daily Nicotine 7 MG/24HR Transdermal Patch 24 Hour APPLY 1 PATCH DAILY DIRECTED. Quantity: 14 Refills: 0 Ordered: 22-Jun-2022 [facility] Jose Daniel Start : 22-Jun-2022 Active Start after completion of 14 mg patch x2 weeks OXYGEN, HOME THERAPY, (20 sources) Start: 02-11-2023 OXYGEN, HOME THERAPY, 2 L/min by Nasal Cannula route continuous. 0 02/11/2023 Active Comment on above: 2 L/min by Nasal Can nula route continuous. predniSONE 20 mg oral tablet (7 sources) Start: 03-23-2022 take 2 tablets by mouth once daily predniSONE 20 MG Oral Tablet TAKE 2 TABLET Daily Quantity: 10 Refills: 1 Ordered: 23-Mar-2022 Jose Daniel Diaz Start : 23-Mar-2022 Active Start: 11-12-2021 End: 11-30-2022 Prednisone Discontinued 10 M G PO .COMPLEX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 Result Comment: Non- GFR Calc Performed By: #### L 100.0200, L500.2900 #### [facility] [address] [place], [address] Globulin (S) [Mass/Vol] 4.1 g/dL Normal 2.2-4.2 [facility] Comment on above: Performed By: #### L 100.0200, L500.2900 #### [facility] [address] [place], [address] Glucose [Mass/Vol] 92 mg/dL Normal 74-106 [facility] Comment on above: Performed By: #### L 100.0200, L500.2900 #### [facility] [address] [place], [address] LDH 199 U/L Normal 84-246 [facility] Comment on above: Performed By: #### L 100.0200, L500.2900 #### [facility] [address] [place], [address] Phosphate [Mass/Vol] 3.6 mg/dL Normal 2.5-4.9 [facility] Comment on above: Performed By: #### L 100.0200, L500.2900 #### [facility] [address] [place], [address] Potassium [Moles/Vol] 4.2 mmol/L Normal 3.5-5.1 [facility] Comment on above: Performed By: #### L 100.0200, L500.2900 #### [facility] [address] [place], [address] Sodium [Moles/Vol] 138 mmol/L Normal 136-145 [facility] Comment on above: Performed By: #### L 100.0200, L500.2900 #### [facility] [address] [place], [address] T PROT 7.6 g/dL Normal 6.4-8.2 [facility] Comment on above: Performed By: #### L 100.0200, L500.2900 #### [facility] [address] [place], [address] Triglyceride [Mass/Vol] 92 mg/dL Normal [facility] Comment on above: Result Comment: The drugs N-Acetylcysteine and Metamizole may falsely depress this assay. Serum Triglycerides Reference Interval Normal <150 mg/dL Borderline high 150 - 199 mg/dL High 200 - 499 mg/dL Very High > or = 500 mg/dL Performed By: #### L 100.0200, L500.2900 #### [facility] [address] [place], [address] Urea nitrogen [Mass/Vol] 13 mg/dL Normal 7-18 [facility] Comment on above: Performed By: #### L 100.0200, L500.2900 #### [facility] [address] [place], [address] URIC 6.3 mg/dL High 2.6-6.0 [facility] Comment on above: Result Comment: The drugs N-Acetylcysteine and Metamizole may falsely depress this assay. Performed By: #### L 100.0200, L500.2900 #### [facility] [address] [place], [address] Hemoglobin A1con 04-18-2024 HbA1c (Bld) [Mass fraction] 5.8 % High 3.8-5.6 [facility] Comment on above: Result Comment: Norm al < 5.7 % Prediabetic 5.7 - 6.4 % Diabetic >or= 6.5 % Please note range changes. Performed By: #### L 100.0500, L501.9985, L500.4050, L501.9520 #### [facility] [address] [place], [address] Thyroid Stim Hormone (TSH)on 04-18-2024 TSH 0.520 uIU/mL Normal 0.358-3.740 [facility] Comment on above: Performed By: #### L 100.0500, L501.9985, L500.4050, L501.9520 #### [facility] [address] [place], [address] DRUG SCREEN,URINEon 04-17-20 24 Amphetamines Screen Ql (U) Negative Normal Presumptive Negative [facility] Comment on above: Order Comment: Drug screen results are presumptive and should not be used to assess compliance with prescribed medication. Contact the performing [facility] laboratory to add-on definitive confirmatory testing if clinically indicated. Toxicology screening results are reported qualitatively. The concentration must ???be greater than or equal to the cutoff to be reported as positive. The concentration at which the screening test can detect an individual drug or metabolite varies. The absence of expected drug(s) and/or drug metabolite(s) may indicate non-compliance, inappropriate timing of specimen collection relative to drug administration, poor drug absorption, diluted/adulterated urine, or limitations of testing. For medical purposes only; not valid for forensic use. Interpretive questions should be directed to the laboratory medical directors. Result Comment: CUTO FF LEVEL: 500 NG/ML Cross-reactivity has been reported with high concentrations of the following drugs: buproprion, chloroquine, chlorpromazine, ephedrine, mephentermine, fenfluramine, phentermine, phenylpropanolamine, pseudoephedrine, and propranolol. Performed By: #### D RUG3 #### MÓNICA KIRK ([id number]) [facility] ([facility]) [address] [place] [address] Barbiturates Screen Ql (U) Negative Normal Presumptive Negative [facility] Comment on above: Order Comment: Drug screen results are presumptive and should not be used to assess compliance with prescribed medication. Contact the performing [facility] laboratory to add-on definitive confirmatory testing if clinically indicated. Toxicology screening results are reported qualitatively. The concentration must ???be greater than or equal to the cutoff to be reported as positive. The concentration at which the screening test can detect an individual drug or metabolite varies. The absence of expected drug(s) and/or drug metabolite(s) may indicate non-compliance, inappropriate timing of specimen collection relative to drug administration, poor drug absorption, diluted/adulterated urine, or limitations of testing. For medical purposes only; not valid for forensic use. Interpretive questions should be directed to the laboratory medical directors. Result Comment: CUTO FF LEVEL: 200 NG/ML Performed By: #### D RUG3 #### MÓNICA KIRK ([id number]) [facility] ([facility]) [address] [place] [address] Benzodiazepines Ql (U) Negative Normal Presumptive Negative [facility] Comment on above: Order Comment: Drug screen results are presumptive and should not be used to assess compliance with prescribed medication. Contact the performing [facility] laboratory to add-on definitive confirmatory testing if clinically indicated. Toxicology screening results are reported qualitatively. The concentration must ???be greater than or equal to the cutoff to be reported as positive. The concentration at which the screening test can detect an individual drug or metabolite varies. The absence of expected drug(s) and/or drug metabolite(s) may indicate non-compliance, inappropriate timing of specimen collection relative to drug administration, poor drug absorption, diluted/adulterated urine, or limitations of testing. For medical purposes only; not valid for forensic use. Interpretive questions should be directed to the laboratory medical directors. Result Comment: CUTO FF LEVEL: 200 NG/ML Performed By: #### D RUG3 #### MÓNICA KIRK ([id number]) [facility] ([facility]) [address] [place] [address] Benzoylecgonine Screen Ql (U) Negative Normal Presumptive Negative [facility] Comment on above: Order Comment: Drug screen results are presumptive and should not be used to assess compliance with prescribed medication. Contact the performing [facility] laboratory to add-on definitive confirmatory testing if clinically indicated. Toxicology screening results are reported qualitatively. The concentration must ???be greater than or equal to the cutoff to be reported as positive. The concentration at which the screening test can detect an individual drug or metabolite varies. The absence of expected drug(s) and/or drug metabolite(s) may indicate non-compliance, inappropriate timing of specimen collection relative to drug administration, poor drug absorption, diluted/adulterated urine, or limitations of testing. For medical purposes only; not valid for forensic use. Interpretive questions should be directed to the laboratory medical directors. Result Comment: CUTO FF LEVEL: 150 NG/ML Performed By: #### D RUG3 #### MÓNICA KIRK ([id number]) [facility] ([facility]) [address] [place] [id number] Cannabinoids Screen Ql (U) Negative Normal Presumptive Negative [facility] Comment on above: Order Comment: Drug screen results are presumptive and should not be used to assess compliance with prescribed medication. Contact the performing [facility] laboratory to add-on definitive confirmatory testing if clinically indicated. Toxicology screening results are reported qualitatively. The concentration must ???be greater than or equal to the cutoff to be reported as positive. The concentration at which the screening test can detect an individual drug or metabolite varies. The absence of expected drug(s) and/or drug metabolite(s) may indicate non-compliance, inappropriate timing of specimen collection relative to drug administration, poor drug absorption, diluted/adulterated urine, or limitations of testing. For medical purposes only; not valid for forensic use. Interpretive questions should be directed to the laboratory medical directors. Result Comment: CUTO FF LEVEL: 50 NG/ML Performed By: #### D RUG3 #### MÓNICA KIRK ([id number]) [facility] ([facility]) [address] [place] [address] fentaNYL+Norfentanyl Screen Ql (U) Negative Normal Presumptive Negative [facility] Comment on above: Order Comment: Drug screen results are presumptive and should not be used to assess compliance with prescribed medication. Contact the performing [facility] laboratory to add-on definitive confirmatory testing if clinically indicated. Toxicology screening results are reported qualitatively. The concentration must ???be greater than or equal to the cutoff to be reported as positive. The concentration at which the screening test can detect an individual drug or metabolite varies. The absence of expected drug(s) and/or drug metabolite(s) may indicate non-compliance, inappropriate timing of specimen collection relative to drug administration, poor drug absorption, diluted/adulterated urine, or limitations of testing. For medical purposes only; not valid for forensic use. Interpretive questions should be directed to the laboratory medical directors. Result Comment: CUTO FF LEVEL: 5 NG/ML Performed By: #### D RUG3 #### MÓNICA KIRK ([id number]) [facility] ([facility]) [address] [place] [address] Methadone Screen Ql (U) Negative Normal Presumptive Negative [facility] Comment on above: Order Comment: Drug screen results are presumptive and should not be used to assess compliance with prescribed medication. Contact the performing [facility] laboratory to add-on definitive confirmatory testing if clinically indicated. Toxicology screening results are reported qualitatively. The concentration must ???be greater than or equal to the cutoff to be reported as positive. The concentration at which the screening test can detect an individual drug or metabolite varies. The absence of expected drug(s) and/or drug metabolite(s) may indicate non-compliance, inappropriate timing of specimen collection relative to drug administration, poor drug absorption, diluted/adulterated urine, or limitations of testing. For medical purposes only; not valid for forensic use. Interpretive questions should be directed to the laboratory medical directors. Result Comment: CUTO FF LEVEL: 150 NG/ML The metabolite K-jyoha-stnzgkungbfudm (LAAM) is not detected by this method in concentrations that would be found in the urine of patients on LAAM therapy. Performed By: #### D RUG3 #### MÓNICA KIRK ([id number]) [facility] ([facility]) [address] [place] [address] Opiates Screen Ql (U) Negative Normal Presum ptive Negative [facility] Comment on above: Order Comment: Drug screen results are presumptive and should not be used to assess compliance with prescribed medication. Contact the performing [facility] laboratory to add-on definitive confirmatory testing if clinically indicated. Toxicology screening results are reported qualitatively. The concentration must ???be greater than or equal to the cutoff to be reported as positive. The concentration at which the screening test can detect an individual drug or metabolite varies. The absence of expected drug(s) and/or drug metabolite(s) may indicate non-compliance, inappropriate timing of specimen collection relative to drug administration, poor drug absorption, diluted/adulterated urine, or limitations of testing. For medical purposes only; not valid for forensic use. Interpretive questions should be directed to the laboratory medical directors. Result Comment: CUTO FF LEVEL: 300 NG/ML The opiate screen does not detect fentanyl, meperidine, or tramadol. Oxycodone is not consistently detected (refer to Oxycodone Screen, Urine result). Performed By: #### D RUG3 #### MÓNICA KIRK ([id number]) [facility] ([facility]) [address] [place] [address] oxyCODONE+oxyMORphone Screen Ql (U) Negative Normal Presumptive Negative [facility] Comment on above: Order Comment: Drug screen results are presumptive and should not be used to assess compliance with prescribed medication. Contact the performing [facility] laboratory to add-on definitive confirmatory testing if clinically indicated. Toxicology screening results are reported qualitatively. The concentration must ???be greater than or equal to the cutoff to be reported as positive. The concentration at which the screening test can detect an individual drug or metabolite varies. The absence of expected drug(s) and/or drug metabolite(s) may indicate non-compliance, inappropriate timing of specimen collection relative to drug administration, poor drug absorption, diluted/adulterated urine, or limitations of testing. For medical purposes only; not valid for forensic use. Interpretive questions should be directed to the laboratory medical directors. Result Comment: CUTO FF LEVEL: 100 NG/ML This test will accurately detect both oxycodone and oxymorphone. Performed By: #### Phong [id number] #### MÓNICA KIRK ([id number]) [facility] ([facility]) [address] [place] [address] Phencyclidine Ql (U) Negative Normal Presump tive Negative [facility] Comment on above: Order Comment: Drug screen results are presumptive and should not be used to assess compliance with prescribed medication. Contact the performing [facility] laboratory to add-on definitive confirmatory testing if clinically indicated. Toxicology screening results are reported qualitatively. The concentration must ???be greater than or equal to the cutoff to be reported as positive. The concentration at which the screening test can detect an individual drug or metabolite varies. The absence of expected drug(s) and/or drug metabolite(s) may indicate non-compliance, inappropriate timing of specimen collection relative to drug administration, poor drug absorption, diluted/adulterated urine, or limitations of testing. For medical purposes only; not valid for forensic use. Interpretive questions should be directed to the laboratory medical directors. Result Comment: CUTO FF LEVEL: 25 NG/ML Cross-reactivity has been reported with dextromethorphan. Performed By: #### D [id number] #### MÓNICA KIRK ([id number]) [facility] ([facility]) [facility] [place] [id number] Jennifer 05-17-2023 [facility] Telephone ([facility]ACE) CAROLYN PARNELL ([id number]) 1965 F Date Time Provider Department 05/17/23 ELROY CALVO [facility] During your visit today, we recorded the following information about you: Ashtyn Pabon RN 05/17/2023 9:56 AM Signed Received call from patient regarding return to work note , per patient request, return to work on 05/25/23 note faxed to [facility] per pt request Allergies As of Date: 05/17/2023 Noted Allergy Reaction MORPHINE 01/17/2023 4 - Hives NAPROXEN 01/17/2023 4 - Hives Date Reviewed: 05/16/2023 Reviewed by: Marilee Weeks RN - Fully Assessed Reason for Visit: Patient Update [1234] Prescriptions as of 05/17/2023 - OXYGEN, HOME THERAPY, 2 L/min by Nasal Cannula route continuous. - Dexlansoprazole 60 mg CpDM Take 60 mg by mouth once daily. - famotidine (PEPCID) 20 mg tablet Take 1 tablet by mouth two times a day as needed (heartburn). - furosemide (LASIX) 20 mg tablet Take 1 tablet by mouth two times a day. - hydroCHLOROthiazide 12.5 mg tablet Take 1 tablet by mouth once daily. - lisinopril (ZESTRIL) 10 mg tablet Take 1 tablet by mouth once daily. - miconazole 2 % powder Apply 1 application to affected area two times a day. - SUMAtriptan (IMITREX) 50 mg tablet Take 1 tablet (50 mg) by mouth as needed for migraine headache (see administration instructions). May repeat dose after 2 hours if needed. Maximum daily dose is 200 mg per day. - zinc oxide 20 % ointment Apply to affected area as needed. - sodium hypochlorite (DAKIN'S QUARTER STRENGTH) 0.125 % soln Irrigate 5 mL as instructed once daily. - acetaminophen (TYLENOL) 500 mg tablet Take 2 tablets by mouth every 8 hours as needed for pain or fever (specify). - albuterol HFA (VENTOLIN HFA) 90 mcg/actuation inhaler Inhale 2 Puffs as instructed every 4 hours as needed for wheezing/shortness of breath. - gabapentin (NEURONTIN) 300 mg capsule Take 300 mg by mouth three times a day. Do not start before February 11, 2023. - escitalopram oxalate (LEXAPRO) 10 mg tablet (Discontinued) Take 10 mg by mouth once daily. - rosuvastatin (CRESTOR) 10 mg tablet Take 10 mg by mouth every other day. - LORazepam (ATIVAN) 1 mg tablet Take 1 mg by mouth at bedtime as needed for anxiety. Do not start before February 11, 2023. 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 Mild protein-calorie malnutrition (HCC) [E44.1] 01/24/2023 Aftercare [Z51.89] 01/26/2023 Acute respiratory failure with hypoxia (HCC) [J*01/27/2023 Encounter Status:Closed by ASHTYN PABON on 05/17/23 [facility] 05-14-2023 [facility] Office Visit ([facility] ) CAROLYN PARNELL ([id number]) 1965 F Date Time Provider Department 05/14/23 11:30 AM ELROY CALVO [facility] During your visit today, we recorded the following information about you: Temperature Pulse Blood pressure 97.4 degrees 73/minute 129/83 Kelly Piña RN 05/14/2023 12:12 PM Signed Nursing Documentation Pertinent Medical History: HTN, elevated cholesterol, anxiety, obesity, colon resection 2009 due to diverticulitis and perforation Wound Etiology according to patient: pain in right groin with shivering, went to the ER 01/17/23 and admitted, became septic; S/P IANDD Right groin 01/18/23 Respiratory failure, intubated, pulmonary hypertension Patient arrived via: ambulatory Home Care Company/Nursing Facility: [facility] FAX: [phone] Consent captured for debridement per Victor Manuel Oliveira until July 2023 Special Instructions: bed Anticoagulant Therapy: none Living Situation: mobile home Who lives with patient: self Who will be performing wound care: [facility] Available Support System: sister AND neighbors In-Home Assist Devices: walker 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, 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[employer] Provider seeing patient: Elroy Calvo CNP ___ WOUND ASSESSMENT: Refer to Provider's Wound Assessment Note VASCULAR ASSESSMENT BY PROVIDER: N/A CHF History: denies (hx: pulmonary hypertension) Smoking: quit 01/19/23 Education: EDEMA: N/A wound located on right groin Right foot: Right calf: Left foot : Left Calf: Other: MEASUREMENTS: in CM N/A wound located on right groin Right Calf: Right Ankle: Left Calf: Left Ankle: Length: Smoking: Denies WOUND PHOTOGRAPHY: YES x 1 DEBRIDEMENT PROCEDURE BY PROVIDER: Anesthetic Used: n/a Wound # 1 Other procedure: N/A Specimen collected: N/A WOUND TREATMENT PER MD ORDER: Wounds cleansed by mechanical debridement to allow provider to visualize wound base WOUND # 1 LOCATION: Right groin (01/19/23) CLOSED 05/14/23 Debridement by Provider: N/A Cleansed with: n/a Applied to elle-wound skin: miconazole powder Right Medial Groin: inter dry Applied to wound bed: n/a Covered and secured with: n/a Other: COMPRESSION: N/A SPECIAL NEEDS: Coordination of care - orders faxed to [facility] Emotional support N/A OR set-up N/A Coroner'S Juror N/A Incontinence needs N/A DISCHARGED in stable condition to: ambulatory to home Plan: - Follow-up in the wound center with Elroy Calvo CNP in 2 weeks. 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 EDUCATION: The patient/family was instructed how to cleanse the wound(s). Visual demonstration on how to apply the dressing with teach back method. Signs AND symptoms of infection were reviewed: Increased redness, swelling, pain, green/yellow drainage, fever and/or chills would all need to be evaluated by a Physician. Patient received typed home-going wound care instructions and has expressed intent to comply. OTHER EDUCATION: Provider discussed wound healing, use anitfungal powder to keep area dry. Discussed possible alternatives to Interdry. Education performed regarding lymphedema/edema: Elevation of extremity above the heart for 30 minutes three times daily and as needed Exercise such as writing the ABC's with your toes in the air, walking and/or calf pumps Wearing compression as ordered by provider Diet controlling of sodium as instructed by provider Use of medication to help control edema. UNIVERSAL PROTOCOL / SAFETY CHECKLIST - N/A Current HBOT Status: Active or Complete - see screening below WOUND CENTER HYPERBARIC OXYGEN THERAPY SCREENING 1. Is the patient diabetic? (If No, skip to question 5) No 5. Has the patient been diagnosed with osteomyelitis? No 6. Has the patient had a previous skin graft or flap at the wound? No 7. Has the patient had or been offered vascular intervention/evaluatio n? No 8. Does the patient have a wound at an amputation site? No 9. Has the patient had radiation therapy at the site of the problem? No If Yes to ANY of questions 5-9, consult the [facility] Kelly Piña, Kelly Bowen RN 05/14/2023 12:06 PM Addendum WOUND CARE INSTRUCTIONS- [facility] FAX: [phone] *Your wound is HEALED!! Apply anti-fungal powder daily to right groin to help balance moisture To give your wound the best chance to heal (more content not included)... [facility] 05-14-2023 [facility] Telephone (JUN) CAROLYN PARNELL ([id number]) 1965 F Date Time Provider Department 05/14/23 ELROY CALVO JASWANT During your visit today, we recorded the following information about you: Matt Urbina, VANITA 05/14/2023 4:41 PM Signed Patient calling in to discuss if a follow up appointment is necessary. Patient was completely healed of wounds as of 05/14/23 and was reassured to only follow up as needed, if wound reopens, or patient has any concerns. Patient verbalized understanding and appreciated the confirmation. Allergies As of Date: 05/14/2023 Noted Allergy Reaction MORPHINE 01/17/2023 4 - Hives NAPROXEN 01/17/2023 4 - Hives Date Reviewed: 05/14/2023 Reviewed by: Kelly Piña RN - Fully Assessed Reason for Visit: Appointment [186] Cmt: Patient calling in to discuss if a follow up appointment is necessary. Prescriptions as of 05/14/2023 - OXYGEN, HOME THERAPY, 2 L/min by Nasal Cannula route continuous. - Dexlansoprazole 60 mg CpDM Take 60 mg by mouth once daily. - famotidine (PEPCID) 20 mg tablet Take 1 tablet by mouth two times a day as needed (heartburn). - furosemide (LASIX) 20 mg tablet Take 1 tablet by mouth two times a day. - hydroCHLOROthiazide 12.5 mg tablet Take 1 tablet by mouth once daily. - lisinopril (ZESTRIL) 10 mg tablet Take 1 tablet by mouth once daily. - miconazole 2 % powder Apply 1 application to affected area two times a day. - SUMAtriptan (IMITREX) 50 mg tablet Take 1 tablet (50 mg) by mouth as needed for migraine headache (see administration instructions). May repeat dose after 2 hours if needed. Maximum daily dose is 200 mg per day. - zinc oxide 20 % ointment Apply to affected area as needed. - sodium hypochlorite (DAKIN'S QUARTER STRENGTH) 0.125 % soln Irrigate 5 mL as instructed once daily. - acetaminophen (TYLENOL) 500 mg tablet Take 2 tablets by mouth every 8 hours as needed for pain or fever (specify). - albuterol HFA (VENTOLIN HFA) 90 mcg/actuation inhaler Inhale 2 Puffs as instructed every 4 hours as needed for wheezing/shortness of breath. - gabapentin (NEURONTIN) 300 mg capsule Take 300 mg by mouth three times a day. Do not start before February 11, 2023. - escitalopram oxalate (LEXAPRO) 10 mg tablet (Discontinued) Take 10 mg by mouth once daily. - rosuvastatin (CRESTOR) 10 mg tablet Take 10 mg by mouth every other day. - LORazepam (ATIVAN) 1 mg tablet Take 1 mg by mouth at bedtime as needed for anxiety. Do not start before February 11, 2023. 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 Mild protein-calorie malnutrition (HCC) [E44.1] 01/24/2023 Aftercare [Z51.89] 01/26/2023 Acute respiratory failure with hypoxia (HCC) [J*01/27/2023 Encounter Status:Closed by MATT URBINA on 05/14/23 [facility] 04-30-2023 CNOV Office Visit (PLWDMR ) CAROLYN PARNELL ([id number]) 1965 F Date Time Provider Department 04/30/23 11:30 AM ELROY CALVO PLWDMR During your visit today, we recorded the following information about you: Temperature Pulse Respiration Blood pressure 97.9 degrees 82/minute 18/minute 101/48 Silvia Reese, RN 04/30/2023 11:34 AM Signed Nursing Documentation Pertinent Medical History: HTN, elevated cholesterol, anxiety, obesity, colon resection 2008 due to diverticulitis and perforation Wound Etiology according to patient: pain in right groin with shivering, went to the ER 01/17/23 and admitted, became septic; S/P IANDD Right groin 01/18/23 Respiratory failure, intubated, pulmonary hypertension Patient arrived via: ambulatory Home Care Company/Nursing Facility: [facility] FAX: [phone] Consent captured for debridement per Elroy Calvo CNP and yoseph until July 2023 Special Instructions: bed Anticoagulant Therapy: none Living Situation: mobile home Who lives with patient: self Who will be performing wound care: [facility] Available Support System: sister AND neighbors In-Home Assist Devices: walker 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, 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 Provider seeing patient: Elroy Calvo CNP ___ WOUND ASSESSMENT: Refer to Provider's Wound Assessment Note VASCULAR ASSESSMENT BY PROVIDER: N/A CHF History: denies (hx: pulmonary hypertension) Smoking: quit 01/19/23 Education: EDEMA: N/A wound located on right groin Right foot: Right calf: Left foot : Left Calf: Other: MEASUREMENTS: in CM N/A wound located on right groin Right Calf: Right Ankle: Left Calf: Left Ankle: Length: Smoking: Denies WOUND PHOTOGRAPHY: YES x 1 DEBRIDEMENT PROCEDURE BY PROVIDER: Anesthetic Used: n/a Wound # 1 Other procedure: N/A Specimen collected: N/A WOUND TREATMENT PER MD ORDER: Wounds cleansed by mechanical debridement to allow provider to visualize wound base WOUND # 1 LOCATION: Right groin (01/19/23) L: 0.5 cm x W: 0.1 cm x D: 0.1 cm Debridement by Provider: N/A Cleansed with: Vashe soak Applied to elle-wound skin: skin prep Right Medial Groin: inter dry Applied to wound bed: calcium alginate silver Covered and secured with: 2x2 [employer] Other: COMPRESSION: N/A SPECIAL NEEDS: Coordination of care - orders faxed to [facility] Emotional support N/A OR set-up N/A Coroner'S Juror N/A Incontinence needs N/A DISCHARGED in stable condition to: ambulatory to home Plan: - Follow-up in the wound center with Elroy Calvo CNP in 2 weeks. - Continue aggressive nutritional support for optimal wound healing - Wound care instructions faxed to [facility]. EDUCATION: The patient/family was instructed how to cleanse the wound(s). Visual demonstration on how to apply the dressing with teach back method. Signs AND symptoms of infection were reviewed: Increased redness, swelling, pain, green/yellow drainage, fever and/or chills would all need to be evaluated by a Physician. Patient received typed home-going wound care instructions and has expressed intent to comply. OTHER EDUCATION: Education performed regarding lymphedema/edema: Elevation of extremity above the heart for 30 minutes three times daily and as needed Exercise such as writing the ABC's with your toes in the air, walking and/or calf pumps Wearing compression as ordered by provider Diet controlling of sodium as instructed by provider Use of medication to help control edema. UNIVERSAL PROTOCOL / SAFETY CHECKLIST Procedure to be Performed: Sharp debridement of Right Groin Sign In: 1130 A Moment of CARE was completed. Personnel directly involved with the procedure wore the appropriate PPE (Personal Protective Equipment). Patient/Surrogate Stated/Verified: PATIENT VERIFIED(optional for EMERGENT procedures): Patient name, Date of , Relevant allergies, and The intended procedure Time Out Communication: 1137 Intended patient and procedure match the source documents. Consent documented and matches the intended procedure. Relevant labs, photos, and/or imaging studies have been reviewed. Medications required for procedure verified. No fire risk assessment and interventions applicable. Sign Out: 1145 SIGN OUT (optional for EMERGENT procedures): No specimen collected. Current HBOT Status: Active or Complete - see screening below WOUND CENTER HYPERBARIC OXYGEN THERAPY SCREENING 1. Is the patient diabetic? (If No, skip to question 5) No 5. Has the patient been diagnosed with osteomyelitis? No 6. Has the patient had a previo (more content not included)... [facility]30[facility]2023 [facility] CAROLYN PARNELL ([id number]) 1965 F Date Time Provider Department 04/30/23 MANI MARINELLI HCSIND During your visit today, we recorded the following information about you: Mani Marinelli RN 04/30/2023 9:50 PM Signed Patient is in need of continued home nurse visits secondary to re-opened wound post wound center appointment on 04/30/23. Wound center has requested home nurse continue visits. Home care Case management will add nursing visits 2wk1, 3wk1 then will re-assess. Thank you in advance for your review of this information. Mani Marinelli RN [facility] Allergies As of Date: 04/30/2023 Noted Allergy Reaction MORPHINE 01/17/2023 4 - Hives NAPROXEN 01/17/2023 4 - Hives Date Reviewed: 04/30/2023 Reviewed by: Silvia Reese, VANITA - Fully Assessed Reason for Visit: Home Care [4073] Cmt: Need for continued home skilled nurse visits for ongoing wound care. Prescriptions as of 05/10/2023 - OXYGEN, HOME THERAPY, 2 L/min by Nasal Cannula route continuous. - Dexlansoprazole 60 mg CpDM Take 60 mg by mouth once daily. - famotidine (PEPCID) 20 mg tablet Take 1 tablet by mouth two times a day as needed (heartburn). - furosemide (LASIX) 20 mg tablet Take 1 tablet by mouth two times a day. - hydroCHLOROthiazide 12.5 mg tablet Take 1 tablet by mouth once daily. - lisinopril (ZESTRIL) 10 mg tablet Take 1 tablet by mouth once daily. - miconazole 2 % powder Apply 1 application to affected area two times a day. - SUMAtriptan (IMITREX) 50 mg tablet Take 1 tablet (50 mg) by mouth as needed for migraine headache (see administration instructions). May repeat dose after 2 hours if needed. Maximum daily dose is 200 mg per day. - zinc oxide 20 % ointment Apply to affected area as needed. - sodium hypochlorite (DAKIN'S QUARTER STRENGTH) 0.125 % soln Irrigate 5 mL as instructed once daily. - acetaminophen (TYLENOL) 500 mg tablet Take 2 tablets by mouth every 8 hours as needed for pain or fever (specify). - albuterol HFA (VENTOLIN HFA) 90 mcg/actuation inhaler Inhale 2 Puffs as instructed every 4 hours as needed for wheezing/shortness of breath. - gabapentin (NEURONTIN) 300 mg capsule Take 300 mg by mouth three times a day. Do not start before February 11, 2023. - escitalopram oxalate (LEXAPRO) 10 mg tablet (Discontinued) Take 10 mg by mouth once daily. - rosuvastatin (CRESTOR) 10 mg tablet Take 10 mg by mouth every other day. - LORazepam (ATIVAN) 1 mg tablet Take 1 mg by mouth at bedtime as needed for anxiety. Do not start before February 11, 2023. 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 I left dressing off today and will plan to check it on 04/27 and most likely dc from home health. Thank you for your shared care! Allergies As of Date: 04/25/2023 Noted Allergy Reaction MORPHINE 01/17/2023 4 - Hives NAPROXEN 01/17/2023 4 - Hives Date Reviewed: 04/23/2023 Reviewed by: Cecile Gagnon RN - Fully Assessed Reason for Visit: Home Care [4073] Patient Update [1234] Prescriptions as of 04/25/2023 - OXYGEN, HOME THERAPY, 2 L/min by Nasal Cannula route continuous. - Dexlansoprazole 60 mg CpDM Take 60 mg by mouth once daily. - famotidine (PEPCID) 20 mg tablet Take 1 tablet by mouth two times a day as needed (heartburn). - furosemide (LASIX) 20 mg tablet Take 1 tablet by mouth two times a day. - hydroCHLOROthiazide 12.5 mg tablet Take 1 tablet by mouth once daily. - lisinopril (ZESTRIL) 10 mg tablet Take 1 tablet by mouth once daily. - miconazole 2 % powder Apply 1 application to affected area two times a day. - SUMAtriptan (IMITREX) 50 mg tablet Take 1 tablet (50 mg) by mouth as needed for migraine headache (see administration instructions). May repeat dose after 2 hours if needed. Maximum daily dose is 200 mg per day. - zinc oxide 20 % ointment Apply to affected area as needed. - sodium hypochlorite (DAKIN'S QUARTER STRENGTH) 0.125 % soln Irrigate 5 mL as instructed once daily. - acetaminophen (TYLENOL) 500 mg tablet Take 2 tablets by mouth every 8 hours as needed for pain or fever (specify). - albuterol HFA (VENTOLIN HFA) 90 mcg/actuation inhaler Inhale 2 Puffs as instructed every 4 hours as needed for wheezing/shortness of breath. - gabapentin (NEURONTIN) 300 mg capsule Take 300 mg by mouth three times a day. Do not start before February 11, 2023. - escitalopram oxalate (LEXAPRO) 10 mg tablet (Discontinued) Take 10 mg by mouth once daily. - rosuvastatin (CRESTOR) 10 mg tablet Take 10 mg by mouth every other day. - LORazepam (ATIVAN) 1 mg tablet Take 1 mg by mouth at bedtime as needed for anxiety. Do not start before February 11, 2023. 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 Mild protein-calorie malnutrition (HCC) [E44.1] 01/24/2023 Aftercare [Z51.89] 01/26/2023 Acute respiratory failure with hypoxia (HCC) [J*01/27/2023 Encounter Status:Closed by MARILEE WEEKS on 04/25/23 [facility] 04-11-2023 CNOV Office Visit (PLWDMR ) CAROLYN PARNELL ([id number]) 1965 F Date Time Provider Department 04/11/23 1:30 PM ELROY CALOV PLWDMR During your visit today, we recorded the following information about you: Temperature Pulse Blood pressure 97.8 degrees 77/minute 109/72 Josi Orsoco RN 04/11/2023 1:47 PM Signed Nursing Documentation Pertinent Medical History: HTN, elevated cholesterol, anxiety, obesity, colon resection 2009 due to diverticulitis and perforation Wound Etiology according to patient: pain in right groin with shivering, went to the ER 01/17/23 and admitted, became septic; S/P IANDD Right groin 01/18/23 Respiratory failure, intubated, pulmonary hypertension Patient arrived via: ambulatory Home Care Company/Nursing Facility: [facility] FAX: [phone] Consent captured for debridement per Victor Manuel Oliveira until July 2023 Special Instructions: bed Anticoagulant Therapy: none Living Situation: mobile home Who lives with patient: self Who will be performing wound care: [facility] Available Support System: sister AND neighbors In-Home Assist Devices: walker 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, 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 Provider seeing patient: Elroy Calvo CNP ___ WOUND ASSESSMENT: Refer to Provider's Wound Assessment Note VASCULAR ASSESSMENT BY PROVIDER: N/A CHF History: denies (hx: pulmonary hypertension) Smoking: quit 01/19/23 Education: EDEMA: N/A wound located on right groin Right foot: Right calf: Left foot : Left Calf: Other: MEASUREMENTS: in CM N/A wound located on right groin Right Calf: Right Ankle: Left Calf: Left Ankle: Length: Smoking: Denies WOUND PHOTOGRAPHY: YES x 1 DEBRIDEMENT PROCEDURE BY PROVIDER: Anesthetic Used: Lidogel 2% applied per Ct Thurman RN Wound # 1 Other procedure: N/A Specimen collected: N/A WOUND TREATMENT PER MD ORDER: Wounds cleansed by mechanical debridement to allow provider to visualize wound base WOUND # 1 LOCATION: Right groin (01/19/23) L: 3.4 cm x W: 0.6 cm x D: 0.1 cm - hypergranulation noted Debridement by Provider: N/A silver nitrate applied due to hypergranulation Post Debridement Measurements: L: cm x W: cm x D: cm (not stretched) Cleansed with: Vashe soak, saline rinse Applied to elle-wound skin: skin prep Right Medial Thigh/Groin: Dusting of miconazole powder Applied to wound bed: hydrofera blue classic , drawtex, Covered and secured with: [place] [employer] Other: COMPRESSION: N/A SPECIAL NEEDS: Coordination of care - orders faxed to [facility] Emotional support N/A OR set-up N/A Coroner'S Juror N/A Incontinence needs N/A DISCHARGED in stable condition to: ambulatory to home Plan: - Follow-up in the wound center with Elroy Calvo CNP in 2 weeks. - Wound vac discontinued okay to return wound vac to [facility] - Continue aggressive nutritional support for optimal wound healing - Wound care instructions faxed to [facility]. EDUCATION: The patient/family was instructed how to cleanse the wound(s). Visual demonstration on how to apply the dressing with teach back method. Signs AND symptoms of infection were reviewed: Increased redness, swelling, pain, green/yellow drainage, fever and/or chills would all need to be evaluated by a Physician. Patient received typed home-going wound care instructions and has expressed intent to comply. OTHER EDUCATION: Education performed regarding lymphedema/edema: Elevation of extremity above the heart for 30 minutes three times daily and as needed Exercise such as writing the ABC's with your toes in the air, walking and/or calf pumps Wearing compression as ordered by provider Diet controlling of sodium as instructed by provider Use of medication to help control edema. UNIVERSAL PROTOCOL / SAFETY CHECKLIST Procedure to be Performed: Sharp debridement of Right Groin Sign In: 1340 A Moment of CARE was completed. Personnel directly involved with the procedure wore the appropriate PPE (Personal Protective Equipment). Patient/Surrogate Stated/Verified: PATIENT VERIFIED(optional for EMERGENT procedures): Patient name, Date of , Relevant allergies, and The intended procedure Time Out Communication: 1341 Intended patient and procedure match the source documents. Consent documented and matches the intended procedure. Relevant labs, photos, and/or imaging studies have been reviewed. Medications required for procedure verified. No fire risk assessment and interventions applicable. Sign Out: 1346 SIGN OUT (optional for EMERGENT procedures): No specimen collected. Josi Orosco RN/lt (more content not included)... [facility] Drugs of abuse screen W Refl ex confirm panel (U)on 04-05-2023 Amphetamines Screen Ql (U) Negative Presumptive Negative [facility] Comment on above: CUTOFF LEVEL: 500 NG /ML Cross-reactivity has been reported with high concentrations of the following drugs: buproprion, chloroquine, chlorpromazine, ephedrine, mephentermine, fenfluramine, phentermine, phenylpropanolamine, pseudoephedrine, and propranolol. Barbiturates Screen Ql (U) Negative Presumptive Negative [facility] Comment on above: CUTOFF LEVEL: 200 NG /ML Benzodiazepines Ql (U) Negative Presumptive Negative [facility] Comment on above: CUTOFF LEVEL: 200 NG /ML Benzoylecgonine Screen Ql (U) Negative Presumptive Negative [facility] Comment on above: CUTOFF LEVEL: 150 NG /ML Cannabinoids Screen Ql (U) Negative Presumptive Negative [facility] Comment on above: CUTOFF LEVEL: 50 NG/ ML fentaNYL+Norfentanyl Screen Ql (U) Negative Presumptive Negative [facility] Comment on above: CUTOFF LEVEL: 5 NG/M L Interpretation and review of laboratory results Normal [facility] Opiates Screen Ql (U) Negative Presum ptive Negative [facility] Comment on above: CUTOFF LEVEL: 300 NG /ML The opiate screen does not detect fentanyl, meperidine, or tramadol. Oxycodone is not consistently detected (refer to Oxycodone Screen, Urine result). oxyCODONE+oxyMORphone Screen Ql (U) Negative Presumptive Negative [facility] Comment on above: CUTOFF LEVEL: 100 NG /ML This test will accurately detect both oxycodone and oxymorphone. Phencyclidine Ql (U) Negative Presump tive Negative [facility] Comment on above: CUTOFF LEVEL: 25 NG/ ML Cross-reactivity has been reported with dextromethorphan. Drug screen results are presumptive and should not be used to assess compliance with prescribed medication. Definitive confirmatory drug testing has been added to this sample for any positive screen result and will be reported separately. Toxicology screening results are reported qualitatively. The concentration must be greater than or equal to the cutoff to be reported as positive. The concentration at which the screening test can detect an individual drug or metabolite varies. The absence of expected drug(s) and/or drug metabolite(s) may indicate non-compliance, inappropriate timing of specimen collection relative to drug administration, poor drug absorption, diluted/adulterated urine, or limitations of testing. For medical purposes only; not valid for forensic use. Interpretive questions should be directed to the laboratory medical directors. [facility] Ear Cerumen Removalon 12-14- 2023 GUSTAVO Vaughan 04/05/2023 3:45 PM Ear Cerumen Removal Date/Time: 04/05/2023 2:47 PM Performed by: GUSTAVO Vaughan Authorized by: GUSTAVO Vaughan Consent: Consent obtained: Verbal Consent given by: Patient Risks, benefits, and alternatives were discussed: yes Risks discussed: Dizziness, pain and incomplete removal Alternatives discussed: Delayed treatment Mccle[place]and protocol: Patient identity confirmed: Verbally with patient Procedure details: Location: L ear and R ear Procedure type: irrigation Procedure outcomes: cerumen removed Post-procedure details: Inspection: Ear canal clear Hearing quality: Improved Procedure completion: Tolerated well, no immediate complications [facility] Work Phone: [facility] Work Phone: CBC W Auto Differential pane l (Bld)on 04-04-2023 Basophils (Bld) [#/Vol] 0.03 x10*3/uL Normal 0.00-0.10 [facility] Comment on above: Performed By: #### 5 7021-8 #### MÓNICA KIRK ([id number]) [facility] ([facility]) [address] [place] [address] 48665 Basophils/100 WBC (Bld) 0.5 % Normal 0.0-2.0 [facility] Comment on above: Performed By: #### 5 7021-8 #### MÓNICA KIRK ([id number]) [facility] ([facility]) [address] [place] [address] 55703 Eosinophils (Bld) [#/Vol] 0.25 x10*3/uL Normal 0.00-0.70 [facility] Comment on above: Performed By: #### 5 7021-8 #### MÓNICA KIRK ([id number]) [facility] ([facility]) [address] [place] [address] 34126 Eosinophils/100 WBC (Bld) 4.2 % Normal 0.0-6.0 [facility] Comment on above: Performed By: #### 5 7021-8 #### MÓNICA KIRK ([id number]) [facility] ([facility]) [address] [place] [address] 84944 Erythrocyte distribution width (RBC) [Ratio] 22.5 % High 11.5-14.5 [facility] Comment on above: Performed By: #### 5 7021-8 #### MÓNICA KIRK ([id number]) [facility] ([facility]) [address] [place] [address] Hematocrit (Bld) [Volume fraction] 40.1 % Normal 36.0-46.0 [facility] Comment on above: Performed By: #### 5 7021-8 #### MÓNICA KIRK ([id number]) [facility] ([facility]) [address] [place] [address] Hemoglobin (Bld) [Mass/Vol] 12.6 g/dL Normal 12.0-16.0 [facility] Comment on above: Performed By: #### 5 7021-8 #### MÓNICA KIRK ([id number]) [facility] ([facility]) [address] [place], [place] [id number] Immature granulocytes (Bld) [#/Vol] 0.00 x10*3/uL Normal 0.00-0.70 [facility] Comment on above: Performed By: #### 5 7021-8 #### MÓNICA KIRK ([id number]) [facility] ([facility]) [address] [place], [place] [phone] Immature granulocytes/100 WBC (Bld) 0.0 % Normal 0.0-0.9 [facility] Comment on above: Result Comment: Patience ture Granulocyte Count (IG) includes promyelocytes, myelocytes and metamyelocytes but does not include bands. Percent differential counts (%) should be interpreted in the context of the absolute cell counts (cells/UL). Performed By: #### 5 7021-8 #### MÓNICA KIRK ([id number]) [facility] ([facility]) [address] [place] [address] 06669 Lymphocytes (Bld) [#/Vol] 1.31 x10*3/uL Normal 1.20-4.80 [facility] Comment on above: Performed By: #### 5 7021-8 #### MÓNICA KIRK ([id number]) [facility] ([facility]) [address] [place] [address] 63893 Lymphocytes/100 WBC (Bld) 21.9 % Normal 13.0-44.0 [facility] Comment on above: Performed By: #### 5 7021-8 #### MÓNICA KIRK ([id number]) [facility] ([facility]) [address] [place] [address] 68090 MCH (RBC) [Entitic mass] 27.5 pg Normal 26.0-34.0 [facility] Comment on above: Performed By: #### 5 7021-8 #### MÓNICA KIRK ([id number]) [facility] ([facility]) [address] [place] [address] 37741 MCHC (RBC) [Mass/Vol] 31.4 g/dL Low 32.0-36.0 [facility] Comment on above: Performed By: #### 7021-8 #### MÓNICA KIRK ([id number]) [facility] ([facility]) [address] [place] [address] 41857 MCV (RBC) [Entitic vol] 87 fL Normal 80-100 [facility] Comment on above: Performed By: #### 5 7021-8 #### MÓNICA KIRK ([id number]) [facility] ([facility]) [address] [place] [address] 00319 Monocytes (Bld) [#/Vol] 0.35 x10*3/uL Normal 0.10-1.00 [facility] Comment on above: Performed By: #### 5 7021-8 #### MÓNICA KIRK ([id number]) [facility] ([facility]) [address] [place] [address] 63322 Monocytes/100 WBC (Bld) 5.8 % Normal 2.0-10.0 [facility] Comment on above: Performed By: #### 5 7021-8 #### MÓNICA KIRK ([id number]) [facility] ([facility]) [address] [place] [address] 23738 Neutrophils (Bld) [#/Vol] 4.05 x10*3/uL Normal 1.20-7.70 [facility] Comment on above: Result Comment: Perc ent differential counts (%) should be interpreted in the context of the absolute cell counts (cells/uL). Performed By: #### 5 7021-8 #### MÓNICA KIRK ([id number]) [facility] ([facility]) [address] [place] [address] 71113 Neutrophils/100 WBC (Bld) 67.6 % Normal 40.0-80.0 [facility] Comment on above: Performed By: #### 5 7021-8 #### MÓNICA KIRK ([id number]) [facility] ([facility]) [address] [place] [address] 91566 Nucleated RBC/100 WBC (Bld) [Ratio] 0.0 /100 WBCs Normal 0.0-0.0 [facility] Comment on above: Performed By: #### 5 7021-8 #### MÓNICA KIRK ([id number]) [facility] ([facility]) [address] [place] [address] 45523 Platelets (Bld) [#/Vol] 226 x10*3/uL Normal 150-450 [facility] Comment on above: Performed By: #### 5 7021-8 #### MÓNICA KIRK ([id number]) [facility] ([facility]) [address] [place] [address] 03129 RBC (Bld) [#/Vol] 4.59 x10*6/uL Normal 4.00-5.20 [facility] Comment on above: Performed By: #### 5 7021-8 #### MÓNICA KIRK ([id number]) [facility] ([facility]) [address] [place] [address] 69977 WBC (Bld) [#/Vol] 6.0 x10*3/uL Normal 4.4-11.3 [facility] Comment on above: Performed By: #### 5 7021-8 #### MÓNICA KIRK ([id number]) [facility] ([facility]) [address] [place] [address] 66693 Comprehensive metabolic 2000 panelon 12-13-2023 Albumin BCP dye [Mass/Vol] 4.0 g/dL Normal 3.4-5.0 [facility] Comment on above: Performed By: #### 2 4323-8 #### MÓNICA KIRK ([id number]) [facility] ([facility]) [address] [place] [address] ALP [Catalytic activity/Vol] 69 U/L Normal 33-110 [facility] Comment on above: Performed By: #### 2 4323-8 #### MÓNICA KIRK ([id number]) [facility] ([facility]) [address] [place] [address] ALT With P-5'-P [Catalytic activity/Vol] 14 U/L Normal 7-45 [facility] Comment on above: Result Comment: Danyelle ents treated with Sulfasalazine may generate falsely decreased results for ALT. Performed By: #### 2 4323-8 #### MÓNICA KIRK ([id number]) [facility] ([facility]) [address] [place] [address] Anion gap [Moles/Vol] 9 mmol/L Low 10-20 [facility] Comment on above: Performed By: #### 2 4323-8 #### MÓNICA KIRK ([id number]) [facility] ([facility]) [address] [place] [address] AST With P-5'-P [Catalytic activity/Vol] 19 U/L Normal 9-39 [facility] Comment on above: Performed By: #### 2 4323-8 #### MÓNICA KIRK ([id number]) [facility] ([facility]) [address] [place] [address] Bilirubin [Mass/Vol] 0.6 mg/dL Normal 0.0-1.2 [facility] Comment on above: Performed By: #### 2 4323-8 #### MÓNICA KIRK ([id number]) [facility] ([facility]) [address] [place] [address] Calcium [Mass/Vol] 9.3 mg/dL Normal 8.6-10.3 [facility] Comment on above: Performed By: #### 2 4323-8 #### MÓNICA KIRK ([id number]) [facility] ([facility]) [facility] [place] [address] Chloride [Moles/Vol] 97 mmol/L Low 98-107 [facility] Comment on above: Performed By: #### 2 4323-8 #### MÓNICA KIRK ([id number]) [facility] ([facility]) [address] [place] [address] 72954 CO2 [Moles/Vol] 36 mmol/L High 21-32 [facility] Comment on above: Performed By: #### 2 4323-8 #### MÓNICA KIRK ([id number]) [facility] ([facility]) [address] [place] [address] 18215 Creatinine [Mass/Vol] 0.53 mg/dL Normal 0.50-1.05 [facility] Comment on above: Performed By: #### 2 4323-8 #### MÓNICA KIRK ([id number]) [facility] ([facility]) [address] [place] [address] 37077 GFR/1.73 sq M.predicted MDRD (S/P/Bld) [Vol rate/Area] mL/min/{1.73_m2} Normal >60 [facility] Comment on above: Result Comment: Calc ulations of estimated GFR are performed using the 2020 CKD-EPI Study Refit equation without the race variable for the IDMS-Traceable creatinine methods. https://jasn.asnjournals.org/content/early//ASN.657064 1380 Performed By: #### 2 4323-8 #### MÓNICA KIRK ([id number]) [facility] ([facility]) [address] [place] [address] 52679 Glucose [Mass/Vol] 87 mg/dL Normal 74-99 [facility] Comment on above: Performed By: #### 2 4323-8 #### MÓNICA KIRK ([id number]) [facility] ([facility]) [address] [place] [address] 67299 Potassium [Moles/Vol] 4.4 mmol/L Normal 3.5-5.3 [facility] Comment on above: Performed By: #### 2 4323-8 #### MÓNICA KIRK ([id number]) [facility] ([facility]) [address] [place] [address] Protein [Mass/Vol] 6.4 g/dL Normal 6.4-8.2 [facility] Comment on above: Performed By: #### 2 4323-8 #### MÓNICA KIRK ([id number]) [facility] ([facility]) [address] [place] [address] 33846 Sodium [Moles/Vol] 138 mmol/L Normal 136-145 [facility] Comment on above: Performed By: #### 2 4323-8 #### MÓNICA KIRK ([id number]) [facility] ([facility]) [address] [place] [address] 16447 Urea nitrogen [Mass/Vol] 16 mg/dL Normal 6-23 [facility] Comment on above: Performed By: #### 2 4323-8 #### MÓNICA KIRK ([id number]) [facility] ([facility]) [address] [place] [address] 96195 HbA1c (Bld) [Mass fraction]o n 04-04-2023 Average glucose Estimated from glycated hemoglobin (Bld) [Mass/Vol] 120 mg/dL Normal Not Established [facility] Comment on above: Order Comment: Diagn osis of Diabetes-Adults Non-Diabetic: < or = 5.6% Increased risk for developing diabetes: 5.7-6.4% Diagnostic of diabetes: > or = 6.5% Monitoring of Diabetes Age (y)....................... Therapeutic Goal (%) Adults: >18.........................<7.0 Pediatrics: 13-18...................<7.5 Pediatrics: 7-12....................<8.0 Pediatrics: 0-6..................... 7.5-8.5 [employer]. Diabetes Care 33(S1), Apr 2009 Performed By: #### 4 548-4 #### MÓNICA KIRK ([id number]) [facility] ([facility]) [facility] [place] [id number] Hemoglobin A1c/Hemoglobin.to rocco 04-04-2023 HbA1c (Bld) [Mass fraction] 5.8 % High see below [facility] Comment on above: Order Comment: Diagn osis of Diabetes-Adults Non-Diabetic: < or = 5.6% Increased risk for developing diabetes: 5.7-6.4% Diagnostic of diabetes: > or = 6.5% Monitoring of Diabetes Age (y)....................... Therapeutic Goal (%) Adults: >18.........................<7.0 Pediatrics: 13-18...................<7.5 Pediatrics: 7-12....................<8.0 Pediatrics: 0-6..................... 7.5-8.5 [employer]. Diabetes Care 33(S1), Apr 2009 Performed By: #### 4 548-4 #### MÓNICA KIRK ([id number]) [facility] ([facility]) [facility] [place] [address] Lipid 1996 panelon 3 Cholesterol [Mass/Vol] 175 mg/dL Normal 0-199 [facility] Comment on above: Result Comment: Age Desirable Borderline High High 0-19 Y 0 - 169 170 - 199 >/= 200 20-24 Y 0 - 189 190 - 224 >/= 225 >24 Y 0 - 199 200 - 239 >/= 240 All ranges are based on fasting samples. Specific therapeutic targets will vary based on patient-specific cardiac risk. Pediatric guidelines reference:Pediatrics 2011, 128(S5).Adult guidelines reference: NCEP ATPIII Guidelines,DAYDAY 2001, 258:2486-97 Venipuncture immediately after or during the administration of Metamizole may lead to falsely low results. Testing should be performed immediately prior to Metamizole dosing. Performed By: #### 2 4331-1 #### MÓNICA KIRK ([id number]) [facility] ([facility]) [address] [place] [address] 95834 Cholesterol in HDL [Mass/Vol] 57.0 mg/dL Normal [facility] Comment on above: Result Comment: Age Very Low Low Normal High 0-19 Y < 35 < 40 40-45 ---- 20-24 Y ---- < 40 >45 ---- >24 Y ---- < 40 40-60 >60 Performed By: #### 2 4331-1 #### MÓNICA KIRK ([id number]) [facility] ([facility]) [address] [place] [address] 29060 Cholesterol in LDL [Mass/Vol] 94 mg/dL Normal <=99 [facility] Comment on above: Result Comment: Near Borderline AGE Desirable Optimal High High Very High 0-19 Y 0 - 109 --- 110-129 >/= 130 ---- 20-24 Y 0 - 119 --- 120-159 >/= 160 ---- >24 Y 0 - 99 100-129 130-159 160-189 >/=190 Performed By: #### 2 4331-1 #### MÓNICA KIRK ([id number]) [facility] ([facility]) [address] [place] [address] 16321 Cholesterol in VLDL [Mass/Vol] 24 mg/dL Normal 0-40 [facility] Comment on above: Performed By: #### 2 4331-1 #### MÓNICA KIRK ([id number]) [facility] ([facility]) [address] [place] [address] 61983 CHOLESTEROL/HDL RATIO 3.1 Normal [facility] Comment on above: Result Comment: Ref Values Desirable < 3.4 High Risk > 5.0 Performed By: #### 2 4331-1 #### MÓNICA KIRK ([id number]) [facility] ([facility]) [address] [place] [address] NON HDL CHOLESTEROL 118 mg/dL Normal 0-149 [facility] Comment on above: Result Comment: Age Desirable Borderline High High Very High 0-19 Y 0 - 119 120 - 144 >/= 145 >/= 160 20-24 Y 0 - 149 150 - 189 >/= 190 ---- >24 Y 30 mg/dL above LDL Cholesterol goal Performed By: #### 2 4331-1 #### MÓNICA KIRK ([id number]) [facility] ([facility]) [facility] [place] [address] Triglyceride [Mass/Vol] 121 mg/dL Normal 0-149 [facility] Comment on above: Result Comment: Age Desirable Borderline High High Very High 0 D-90 D 19 - 174 ---- ---- ---- 91 D- 9 Y 0 - 74 75 - 99 >/= 100 ---- 10-19 Y 0 - 89 90 - 129 >/= 130 ---- 20-24 Y 0 - 114 115 - 149 >/= 150 ---- >24 Y 0 - 149 150 - 199 200- 499 >/= 500 Venipuncture immediately after or during the administration of Metamizole may lead to falsely low results. Testing should be performed immediately prior to Metamizole dosing. Performed By: #### 2 4331-1 #### MÓNICA KIRK ([id number]) [facility] ([facility]) [facility] [place] [id number] CNOVshane 03-30-2023 CNOV Office Visit (PLWDMR ) CAROLYN PARNELL ([id number]) 1965 F Date Time Provider Department 03/30/23 11:30 AM ELROY CALVO PLWDMR During your visit today, we recorded the following information about you: Temperature Pulse Blood pressure 97.6 degrees 88/minute 90/64 Josi Orosco RN 03/30/2023 12:19 PM Addendum Nursing Documentation Pertinent Medical History: HTN, elevated cholesterol, anxiety, obesity, colon resection 2009 due to diverticulitis and perforation Wound Etiology according to patient: pain in right groin with shivering, went to the ER 01/17/23 and admitted, became septic; S/P IANDD Right groin 01/18/23 Respiratory failure, intubated, pulmonary hypertension Patient arrived via: ambulatory Home Care Company/Nursing Facility: [facility] FAX: [phone] Consent captured for debridement per Victor Manuel Oliveira until July 2023 Special Instructions: bed Anticoagulant Therapy: none Living Situation: mobile home Who lives with patient: self Who will be performing wound care: [facility] Available Support System: sister AND neighbors In-Home Assist Devices: walker 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, 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[employer] Provider seeing patient: Elroy Calvo CNP ___ WOUND ASSESSMENT: Refer to Provider's Wound Assessment Note VASCULAR ASSESSMENT BY PROVIDER: N/A CHF History: denies (hx: pulmonary hypertension) Smoking: quit 01/19/23 Education: EDEMA: N/A wound located on right groin Right foot: Right calf: Left foot : Left Calf: Other: MEASUREMENTS: in CM N/A wound located on right groin Right Calf: Right Ankle: Left Calf: Left Ankle: Length: Smoking: Denies WOUND PHOTOGRAPHY: YES x 1 DEBRIDEMENT PROCEDURE BY PROVIDER: Anesthetic Used: none Wound # 1 Other procedure: N/A Specimen collected: N/A WOUND TREATMENT PER MD ORDER: Wounds cleansed by mechanical debridement to allow provider to visualize wound base WOUND # 1 LOCATION: Right groin (01/19/23) L: 4.8 cm x W: 1.1 cm x D: 1.0 cm - hypergranulation noted Debridement by Provider: N/A silver nitrate applied due to hypergranulation Post Debridement Measurements: L: 4.8 cm x W: 1.1 cm x D: 0.2 cm (not stretched) Undermining- none Tunnel closed (03/09/23) Cleansed with: Vashe soak Applied to elle-wound skin: skin prep Right Medial Thigh/Groin: red/dried/irritated from drape. Dusting of miconazole powder Applied to wound bed:silver alginate, drawtex, Covered and secured with: [place] SAP Other: NPWT Tracking : discontinued 03/30/2023 Wound location: Right groin Vac Start date: 02/23/2023 Vac Hold date: Vac Restart date: Hospitalization date: COMPRESSION: N/A SPECIAL NEEDS: Coordination of care - orders faxed to [facility] Emotional support N/A OR set-up N/A Coroner'S Juror N/A Incontinence needs N/A DISCHARGED in stable condition to: ambulatory to home Global surgical period dates if applicable: 01/19/23 - 04/18/23 Plan: - Follow-up in the wound center with Elroy Calvo CNP in 2 weeks. - Wound vac discontinued okay to return wound vac to [facility] - Continue aggressive nutritional support for optimal wound healing - Wound care instructions faxed to [facility]. EDUCATION: The patient/family was instructed how to cleanse the wound(s). Visual demonstration on how to apply the dressing with teach back method. Signs AND symptoms of infection were reviewed: Increased redness, swelling, pain, green/yellow drainage, fever and/or chills would all need to be evaluated by a Physician. Patient received typed home-going wound care instructions and has expressed intent to comply. OTHER EDUCATION: New wound care. Education performed regarding lymphedema/edema: Elevation of extremity above the heart for 30 minutes three times daily and as needed Exercise such as writing the ABC's with your toes in the air, walking and/or calf pumps Wearing compression as ordered by provider Diet controlling of sodium as instructed by provider Use of medication to help control edema. - UNIVERSAL PROTOCOL / SAFETY CHECKLIST: N/A - Current HBOT Status: Active or Complete - see screening below WOUND CENTER HYPERBARIC OXYGEN THERAPY SCREENING 1. Is the patient diabetic? (If No, skip to question 5) No 5. Has the patient been diagnosed with osteomyelitis? No 6. Has the patient had a previous skin graft or flap at the wound? No 7. Has the patient had or been offere (more content not included)... [facility] 03-24-2023 [facility] Telephone ([facility]) CAROLYN PARNELL ([id number]) 1965 F Date Time Provider Department 03/24/23 [facility] During your visit today, we recorded the following information about you: Matias Chaparro RN 03/24/2023 12:01 PM Signed Patient seen today for wound vac change. Patient states the wound vac came off again last night. Nurse assessed wound- wound is to surface. Nurse keeping wound vac off due to wound stage of healing and because wound vac continues to fall off daily. Patient is agreeable to this also. Patient states she has a wound appointment Sunday at wound center. Thank you. Allergies As of Date: 03/24/2023 Noted Allergy Reaction MORPHINE 01/17/2023 4 - Hives NAPROXEN 01/17/2023 4 - Hives Date Reviewed: 03/20/2023 Reviewed by: Marilee Weeks RN - Fully Assessed Reason for Visit: Home Care [[id number]] Prescriptions as of 03/24/2023 - OXYGEN, HOME THERAPY, 2 L/min by Nasal Cannula route continuous. - Dexlansoprazole 60 mg CpDM Take 60 mg by mouth once daily. - famotidine (PEPCID) 20 mg tablet Take 1 tablet by mouth two times a day as needed (heartburn). - furosemide (LASIX) 20 mg tablet Take 1 tablet by mouth two times a day. - hydroCHLOROthiazide 12.5 mg tablet Take 1 tablet by mouth once daily. - lisinopril (ZESTRIL) 10 mg tablet Take 1 tablet by mouth once daily. - miconazole 2 % powder Apply 1 application to affected area two times a day. - SUMAtriptan (IMITREX) 50 mg tablet Take 1 tablet (50 mg) by mouth as needed for migraine headache (see administration instructions). May repeat dose after 2 hours if needed. Maximum daily dose is 200 mg per day. - zinc oxide 20 % ointment Apply to affected area as needed. - sodium hypochlorite (DAKIN'S QUARTER STRENGTH) 0.125 % soln Irrigate 5 mL as instructed once daily. - acetaminophen (TYLENOL) 500 mg tablet Take 2 tablets by mouth every 8 hours as needed for pain or fever (specify). - albuterol HFA (VENTOLIN HFA) 90 mcg/actuation inhaler Inhale 2 Puffs as instructed every 4 hours as needed for wheezing/shortness of breath. - gabapentin (NEURONTIN) 300 mg capsule Take 300 mg by mouth three times a day. Do not start before February 11, 2023. - escitalopram oxalate (LEXAPRO) 10 mg tablet (Discontinued) Take 10 mg by mouth once daily. - rosuvastatin (CRESTOR) 10 mg tablet Take 10 mg by mouth every other day. - LORazepam (ATIVAN) 1 mg tablet Take 1 mg by mouth at bedtime as needed for anxiety. Do not start before February 11, 2023. 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 Mild protein-calorie malnutrition (HCC) [E44.1] 01/24/2023 Aftercare [Z51.89] 01/26/2023 Acute respiratory failure with hypoxia (HCC) [J*01/27/2023 Encounter Status:Closed by MATIAS CHAPARRO on 03/24/23 [facility] - Microbiology an d Antimicrobial susceptibilityon 03-18-2023 SARS-CoV-2 (COVID-19) RNA SWEETIE+probe Ql (Unsp spec) Detected [facility] No Panel Informationon 03-18 POC Nasal Swab Influenza A,B Not detected [facility] POC Nasal Swab RSV Not detected [facility] CNOVon 03-09-2023 CNOV Office Visit (PLWDMR ) CAROLYN PARNELL ([id number]) 1965 F Date Time Provider Department 03/09/23 10:45 AM ELROY CALVO PLWDMR During your visit today, we recorded the following information about you: Temperature Pulse Respiration Blood pressure 97.6 degrees 88/minute 18/minute 95/66 Ct Arrington RN 03/09/2023 11:54 AM Signed Nursing Documentation Pertinent Medical History: HTN, elevated cholesterol, anxiety, obesity, colon resection 2009 due to diverticulitis and perforation Wound Etiology according to patient: pain in right groin with shivering, went to the ER 01/17/23 and admitted, became septic; S/P IANDD Right groin 01/18/23 Respiratory failure, intubated, pulmonary hypertension Patient arrived via: ambulatory Home Care Company/Nursing Facility: [facility] FAX: [phone] Consent captured for debridement per Elroy Calvo CNP and yoseph until July 2023 Special Instructions: bed Anticoagulant Therapy: none Living Situation: mobile home Who lives with patient: self Who will be performing wound care: [facility] Available Support System: sister AND neighbors In-Home Assist Devices: walker 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[employer], 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[employer] Provider seeing patient: Elroy Calvo CNP ___ WOUND ASSESSMENT: Refer to Provider's Wound Assessment Note VASCULAR ASSESSMENT BY PROVIDER: N/A CHF History: denies (hx: pulmonary hypertension) Smoking: quit 01/19/23 Education: EDEMA: N/A wound located on right groin Right foot: Right calf: Left foot : Left Calf: Other: MEASUREMENTS: in CM N/A wound located on right groin Right Calf: Right Ankle: Left Calf: Left Ankle: Length: Smoking: Denies WOUND PHOTOGRAPHY: YES x 1 DEBRIDEMENT PROCEDURE BY PROVIDER: Anesthetic Used: lido gel 2% applied by Aurora Barrios RN Wound # 1 Other procedure: N/A Specimen collected: N/A WOUND TREATMENT PER MD ORDER: Wounds cleansed by mechanical debridement to allow provider to visualize wound base WOUND # 1 LOCATION: Right groin (01/19/23) L: 5.2 cm x W: 1.2 cm x D: 2.5 cm (depth measured at the 11:00 position) Debridement by Provider: SQ Post Debridement Measurements: L: 5.0 cm x W: 1.0 cm x D: 2 cm (not stretched) Undermining 11:00- 1.0 cm 12:00- 1.0 cm 15:00- 1.0 cm 16:00- 0.6 cm Tunnel closed (03/09/23) Cleansed with: Vashe soak Applied to elle-wound skin: Miconazole powder, skin prep, mastisol, eaken seal placed at the distal end of the wound. The elle-wound was covered with duoderm, Right Medial Thigh/Groin: red/dried/irritated from drape. Dusting of miconazole powder covered with calcium alginate followed with drape Applied to wound bed:+ Black foam Covered and secured with: Vac drape, suction disc placed on right anterior medial thigh Other: Wound Vac Settings: Continuous pressure at 150 mmHg High intensity Change dressings M-W-F NPWT Tracking : Wound location: Right groin Vac Start date: 02/23/2023 Vac Hold date: Vac Restart date: Hospitalization date: COMPRESSION: N/A SPECIAL NEEDS: Coordination of care - orders faxed to [facility] Emotional support N/A OR set-up N/A Coroner'S Juror N/A Incontinence needs N/A DISCHARGED in stable condition to: ambulatory to home Global surgical period dates if applicable: 01/19/23 - 04/18/23 Plan: Follow-up in the wound center with Elroy Calvo CIRCULAR SAW EDGE FUSER: Sunday03/09/23 and 03/23/23 all at 10:45 am The week of Thanksgiving the patient will require 3 visits per home care M-W-F Continue aggressive nutritional support for optimal wound healing Revisit 03/09 the idea of possibly having only 2 visits by Home Care the week of EDUCATION: The patient/family was instructed how to cleanse the wound(s). Visual demonstration on how to apply the dressing with teach back method. Signs AND symptoms of infection were reviewed: Increased redness, swelling, pain, green/yellow drainage, fever and/or chills would all need to be evaluated by a Physician. Patient received typed home-going wound care instructions and has expressed intent to comply. OTHER EDUCATION: Education performed regarding lymphedema/edema: Elevation of extremity above the heart for 30 minutes three times daily and as needed Exercise such as writing the ABC's with your toes in the air, walking and/or calf pumps Wearing compression as ordered by provider Diet controlling of sodium as instructed by provider Use of medication to help control edema. - UNIVERSAL PROTOCOL / SAFETY CHECKLIST: N/A (more content not included)... [facility] Janie 03-02-2023 [facility] Office Visit (PLWDMR ) CAROLYN PARNELL ([id number]) 1965 F Date Time Provider Department 03/02/23 10:45 AM ELROY CALVO PLWDMR During your visit today, we recorded the following information about you: Temperature Pulse Respiration Blood pressure 97.3 degrees 95/minute 20/minute 99/67 Aurora Copeland RN 03/02/2023 12:18 PM Addendum Nursing Documentation Pertinent Medical History: HTN, elevated cholesterol, anxiety, obesity, colon resection 2009 due to diverticulitis and perforation Wound Etiology according to patient: pain in right groin with shivering, went to the ER 01/17/23 and admitted, became septic; S/P IANDD Right groin 01/18/23 Respiratory failure, intubated, pulmonary hypertension Patient arrived via: ambulatory Home Care Company/Nursing Facility: [facility] FAX: [phone] Consent captured for debridement per Victor Manuel Oliveira until July 2023 Special Instructions: bed Anticoagulant Therapy: none Living Situation: mobile home Who lives with patient: self Who will be performing wound care: [facility] Available Support System: sister AND neighbors In-Home Assist Devices: walker 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, 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[employer] Provider seeing patient: Elroy Calvo CNP ___ WOUND ASSESSMENT: Refer to Provider's Wound Assessment Note VASCULAR ASSESSMENT BY PROVIDER: N/A CHF History: denies (hx: pulmonary hypertension) Smoking: quit 01/19/23 Education: EDEMA: N/A wound located on right groin Right foot: Right calf: Left foot : Left Calf: Other: MEASUREMENTS: in CM N/A wound located on right groin Right Calf: Right Ankle: Left Calf: Left Ankle: Length: Smoking: Denies WOUND PHOTOGRAPHY: YES x 1 DEBRIDEMENT PROCEDURE BY PROVIDER: Anesthetic Used: lido gel 2% applied by Matt Nash RN Wound # 1 Other procedure: N/A Specimen collected: N/A WOUND TREATMENT PER MD ORDER: Wounds cleansed by mechanical debridement to allow provider to visualize wound base WOUND # 1 LOCATION: Right groin (01/19/23) L: 5.2 cm x W: 1.2 cm x D: 2.5 cm (depth measured at the 11:00 position) Debridement by Provider: N/A Post Debridement Measurements: L: cm x W: cm x D: cm Undermining 12:00-5:00: 2.1 Tunnel 11:00 = 2.0 cm Cleansed with: Vashe soak Applied to elle-wound skin: skin prep, mastisol, eaken seal placed at the distal end of the wound. The elle-wound was covered with duoderm, Right Medial Thigh/Groin: red/dried/irritated from drape. Dusting of miconazole powder covered with calcium alginate followed with drape Applied to wound bed: single layer of adaptic followed with Black foam Covered and secured with: Vac drape, suction disc placed on right anterior medial thigh Other: Wound Vac Settings: Continuous pressure at 150 mmHg High intensity Change dressings M-W-F NPWT Tracking : Wound location: Right groin Vac Start date: 02/23/2023 Vac Hold date: Vac Restart date: Hospitalization date: COMPRESSION: N/A SPECIAL NEEDS: Coordination of care - orders faxed to [facility] Emotional support N/A OR set-up N/A Coroner'S Juror N/A Incontinence needs N/A DISCHARGED in stable condition to: ambulatory to home Global surgical period dates if applicable: 01/19/23 - 04/18/23 Plan: Follow-up in the wound center with Elroy Calvo CNP: Sunday03/09/23 and 03/23/23 all at 10:45 am The week of the patient will require 3 visits per home care M-W-F Continue aggressive nutritional support for optimal wound healing Revisit 03/09 the idea of possibly having only 2 visits by Home Care the week of EDUCATION: The patient/family was instructed how to cleanse the wound(s). Visual demonstration on how to apply the dressing with teach back method. Signs AND symptoms of infection were reviewed: Increased redness, swelling, pain, green/yellow drainage, fever and/or chills would all need to be evaluated by a Physician. Patient received typed home-going wound care instructions and has expressed intent to comply. OTHER EDUCATION: Education performed regarding lymphedema/edema: Elevation of extremity above the heart for 30 minutes three times daily and as needed Exercise such as writing the ABC's with your toes in the air, walking and/or calf pumps Wearing compression as ordered by provider Diet controlling of sodium as instructed by provider Use of medication to help control edema. - UNIVERSAL PROTOCOL / SAFETY CHECKLIST: N/A - (more content not included)... [facility] 02-23-2023 [facility] Office Visit (PLWDMR ) CAROLYN PARNELL ([id number]) 1965 F Date Time Provider Department 02/23/23 11:30 AM ELROY CALVOWDMR During your visit today, we recorded the following information about you: Temperature Pulse Respiration Blood pressure 96.7 degrees 86/minute 16/minute 112/76 Sarahi Blanca RN 02/23/2023 12:51 PM Signed Nursing Documentation Pertinent Medical History: HTN, elevated cholesterol, anxiety, obesity, colon resection 2009 due to diverticulitis and perforation Wound Etiology according to patient: pain in right groin with shivering, went to the ER 01/17/23 and admitted, became septic; S/P IANDD Right groin 01/18/23 Respiratory failure, intubated, pulmonary hypertension Patient arrived via: ambulatory Home Care Company/Nursing Facility: [facility] FAX: [phone] Consent captured for debridement per Victor Manuel Oliveira until July 2023 Special Instructions: bed Anticoagulant Therapy: none Living Situation: mobile home Who lives with patient: self Who will be performing wound care: [facility] Available Support System: sister AND neighbors In-Home Assist Devices: walker 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, 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[employer] Provider seeing patient: Elroy Calvo CNP ___ WOUND ASSESSMENT: Refer to Provider's Wound Assessment Note VASCULAR ASSESSMENT BY PROVIDER: N/A CHF History: denies (hx: pulmonary hypertension) Smoking: quit 01/19/23 Education: EDEMA: N/A wound located on right groin Right foot: Right calf: Left foot : Left Calf: Other: MEASUREMENTS: in CM N/A wound located on right groin Right Calf: Right Ankle: Left Calf: Left Ankle: Length: WOUND PHOTOGRAPHY: YES x 1 DEBRIDEMENT PROCEDURE BY PROVIDER: Anesthetic Used: N/A Wound # Other procedure: N/A Specimen collected: N/A WOUND TREATMENT PER MD ORDER: Wounds cleansed by mechanical debridement to allow provider to visualize wound base WOUND # 1 LOCATION: Right groin (01/19/23) L: 6.5 cm x W: 4.0 cm x D: 3.2 cm (depth measured at the 11:00 position) Undermining 12:00-5:00 2.1 Tunnel 11:00 = 3.3 cm Debridement by Provider: N/A Post Debridement Measurements: L: cm x W: cm x D: cm Cleansed with: Vashe soak Applied to elle-wound skin: skin prep, miconazole powder, mastisol, vac drape, Goldie's seal Applied to wound bed: Black foam Covered and secured with: Vac drape, suction disc Other: Skin prep and mastisol to the elle-wound. Window wound with wound vac drape Apply Goldie's seal to distal aspect of wound Lightly pack wound with Simplace black foam Secure with clear vac drape and attach suction disc tracked to upper anterior thigh Pad between vac tubing and patients skin Wound Vac Settings: Continuous pressure at 150 mmHg High intensity Change dressings M-W-F NPWT Tracking : Wound location: Right groin Vac Start date: 02/23/2023 Vac Hold date: Vac Restart date: Hospitalization date: COMPRESSION: N/A SPECIAL NEEDS: Coordination of care - orders faxed to [facility] Emotional support N/A OR set-up N/A Coroner'S Juror N/A Incontinence needs N/A DISCHARGED in stable condition to: ambulatory to home Global surgical period dates if applicable: 01/19/23 - 04/18/23 Plan: Follow-up in the wound center with Elroy Calvo CNP Sunday03/02/23 and 03/09/23 and 03/23/23 all at 10:45 am Continue aggressive nutritional support for optimal wound healing Imaging Scheduling: Call [phone] to schedule your MRI or Cat Scan EDUCATION: The patient/family was instructed how to cleanse the wound(s). Visual demonstration on how to apply the dressing with teach back method. Signs AND symptoms of infection were reviewed: Increased redness, swelling, pain, green/yellow drainage, fever and/or chills would all need to be evaluated by a Physician. Patient received typed home-going wound care instructions and has expressed intent to comply. OTHER EDUCATION: Elroy discussed with patient wound care, wound vac application; good nutrition and protein intake. Wound care orders obtained. Education performed regarding lymphedema/edema: Elevation of extremity above the heart for 30 minutes three times daily and as needed Exercise such as writing the ABC's with your toes in the air, walking and/or calf pumps Wearing compression as ordered by provider Diet controlling of sodium as instructed by provider Use of medication to help control edema. - UNIVERSAL PROTOCOL / SAFETY CHECKLIST: N/A - ___ (more content not included)... [facility] 02-19-2023 [facility] Office Visit (PLWDMR ) CAROLYN PARNELL ([id number]) 1965 F Date Time Provider Department 02/19/23 1:00 PM ELROY CALVO PLWD During your visit today, we recorded the following information about you: Temperature Pulse Blood pressure Weight 97.3 degrees 99/minute 98/59 112.6 kg Height 1.651 m Elroy Calvo, DESKTOP SUPPORT CONSULTANT.CIRCULAR SAW EDGE FUSER 02/19/2023 4:33 PM Signed WOUND CENTER INITIAL VISIT PATIENT NAME: Carolyn Parnell DATE OF VISIT: 02/19/2023 REASON FOR VISIT: right groin wound HISTORY OF PRESENT ILLNESS: Carolyn Parnell is a 57 year old y/o female w/ hx HTN, HLD, anxiety, obesity, who presents for initial Wound Center visit for right groin wound. Pt reports she started having lower pelvic/right groin pain about 1 month ago (01/16/2023). She went to the ED for evaluation and was subsequently admitted (01/17/2023-01/26/2023) for right groin soft tissue infection. She became septic while hospitalized requiring intubation and mechanical ventilation. CT abdomen/pelvis showed gas within the soft tissues of the right side of mons pubis extending into the right groin; gas forming infection suspected. She was evaluated by infectious disease and was treated with IV antibiotics throughout the hospital stay. She underwent surgical debridement on 01/18/2023 and another bedside debridement on 01/25/2023. Tissue culture grew rare Staph simulans and few Actinomyces species. Her hospitalization was also complicated by episodes of shortness of breath, requiring O2 and IV Lasix. She was discharged to [facility] on 01/26/2023. She was to be evaluated for possible wound vac placement, but the wound vac was not started. She was discharged home with [facility] on 02/09/2023. Pt lives alone and is unable to take care of the wound herself d/t the location of the wound. She is unable to visualize the wound d/t wound location in groin under pannus to appropriately dress the wound. She states she was smoking up until her hospitalization and has not smoked since. She has assistance of [facility] for wound care twice a week at present. Location: right groin Onset: 01/16/2023 Aggravating factors: Infection and obesity Wound etiology: infection Associated pain with wound: No Relieving factors for wound pain: n/a Treatments: Current: Dakin's moistened gauze Past: saline moistened gauze No past medical history on file. No past surgical history on file. ALLERGIES ALLERGIES Allergen Reactions Morphine Hives Naproxen Hives CURRENT OUTPATIENT MEDICATIONS OXYGEN, HOME THERAPY, 2 L/min by Nasal Cannula route continuous. Dexlansoprazole 60 mg CpDM Take 60 mg by mouth once daily. famotidine (PEPCID) 20 mg tablet Take 1 tablet by mouth two times a day as needed (heartburn). furosemide (LASIX) 20 mg tablet Take 1 tablet by mouth two times a day. hydroCHLOROthiazide 12.5 mg tablet Take 1 tablet by mouth once daily. lisinopril (ZESTRIL) 10 mg tablet Take 1 tablet by mouth once daily. miconazole 2 % powder Apply 1 application to affected area two times a day. SUMAtriptan (IMITREX) 50 mg tablet Take 1 tablet (50 mg) by mouth as needed for migraine headache (see administration instructions). May repeat dose after 2 hours if needed. Maximum daily dose is 200 mg per day. zinc oxide 20 % ointment Apply to affected area as needed. (Patient taking differently: Apply 1 application to affected area as needed for dry skin.) sodium hypochlorite (DAKIN'S QUARTER STRENGTH) 0.125 % soln Irrigate 5 mL as instructed once daily. acetaminophen (TYLENOL) 500 mg tablet Take 2 tablets by mouth every 8 hours as needed for pain or fever (specify). albuterol HFA (VENTOLIN HFA) 90 mcg/actuation inhaler Inhale 2 Puffs as instructed every 4 hours as needed for wheezing/shortness of breath. gabapentin (NEURONTIN) 300 mg capsule Take 300 mg by mouth three times a day. Do not start before February 11, 2023. escitalopram oxalate (LEXAPRO) 10 mg tablet Take 10 mg by mouth once daily. rosuvastatin (CRESTOR) 10 mg tablet Take 10 mg by mouth every other day. LORazepam (ATIVAN) 1 mg tablet Take 1 mg by mouth at bedtime as needed for anxiety. Do not start before February 11, 2023. No family history on file. REVIEW OF SYSTEM: GENERAL: No weight loss, malaise or fevers RESPIRATORY: Negative for cough, hemoptysis, wheezing, COPD, dyspnea or shortness of breath CARDIOVASCULAR: Negative for chest pain, leg swelling, hypertension, CHF or palpitations GI: No nausea, vomiting, or diarrhea MUSCULOSKELETAL: Negative for joint pain or swelling, back pain or muscle pain SKIN: Positive for wound, right groin HEMATOLOGY/LYMPHOLOGY: Negative for prolonged bleeding, bruising easily or swollen nodes ENDOCRINE: Negative for cold or heat intolerance, polyuria, polydipsia and goiter NEURO: No history of headaches, syncope, paralysis, seizures or tr (more content not included)... [facility] CNCOon 02-12-2023 CNCO Letter Text [facility] SOCIAL WORKon 02-09-2023 SOCIAL WORK Normal [facility] SOCIAL WORK Normal [facility] THERAPY NTon 02-09-2023 THERAPY NT Normal [facility] THERAPY NT Normal [facility] CASE MANAGEMon 02-08-2023 CASE MANAGEM Normal [facility] CNDSon 02-08-2023 CNDS Normal [facility] SOCIAL WORKon 02-08-2023 SOCIAL WORK Normal [facility] THERAPY NTon 02-08-2023 THERAPY NT Normal [facility] THERAPY NT Normal [facility] THERAPY NT Normal [facility] NURSING PROGon 02-07-2023 NURSING PROG Normal [facility] SOCIAL WORKon 02-07-2023 SOCIAL WORK Normal [facility] SOCIAL WORK Normal [facility] THERAPY NTon 02-07-2023 THERAPY NT Normal [facility] THERAPY NT Normal [facility] THERAPY NT Normal [facility] CNPNon 02-06-2023 CNPN Telephone (HCSIND) CAROLYN PARNELL S ([id number]) 1965 F Date Time Provider Department 02/06/23 SARAH SAM HCSIND During your visit today, we recorded the following information about you: Sarah Sam 02/06/2023 12:23 PM Signed Welcome Home Call: a. Date and Time: 12:20 PM 02/06/2023 b. Contact name/relationship: CAROLYN PARNELL Patient c. Have you been active with any Home Care company in the last 60 days (such as help with bathing, filling medications, checking your blood pressure, or assistance with an exercise program)? No. d. [facility] will be providing your care, are you agreeable to starting these services? yes (yes or no) e. Do you have any upcoming appointments in the next few days, or restrictions to your schedule? 02/09/23 f. Caregiver: Patient is able to manage care independently g. Confirmed Visited Location and preferred #: Address: [address] [place] [address] [address] [facility] [address] h. Was patient given Flu shot this Season (After Dec,): Yes: Location: in hospital , Date received: 02/12 Please keep our your medications both over the counter and prescribed out for the home care to review, your hospital discharge instructions and write down any questions you might have. While we focus on providing safe care, in support of this mission, we ask you to: Be respectful of our caregivers. Do not raise your voice or use profanity. You and your family/caregivers must be considerate of our organization's staff and property. Promote a safe and respectful environment. We will not tolerate any form of threatening or aggressive behaviors towards our caregiver team. This includes verbal, physical or sexual behaviors: - Examples include acts or threats of physical violence, harassment, intimidation, abusive or foul language, or other aggressive, disruptive or discriminatory behavior. Any firearms or weapons in the home must be stored and locked in a separate room from where care is taking place. Firearms or other weapons should not be easily accessible or in plain view; when available, firearms should be stored and locked in a firearm safe. - Weapons of any kind include: firearms, knives, tasers and all other things that can inflict bodily or physical harm. Pets/animals must be moved to a separate closed room or placed in a crate/cage while caregivers are in the home. (Service animals excluded). Substance Use (illegal drugs, alcohol, cigarettes) including Medical marijuana in a vaporized or inhaled form is not permitted for use by a patient or caregiver/family member while our caregivers are in the home. Taking photos or videos of our caregivers without permission is not permitted. Our clinicians will call you the night before or the morning of the appointment. Their # may come up restricted but they'll leave a VM for you. In case you have any questions or concerns in the meantime, our # is [phone], option [phone] Thank you for your time and have a great day. Sarah Sam [employer] Assistant Allergies As of Date: 02/06/2023 Noted Allergy Reaction MORPHINE 01/17/2023 4 - Hives NAPROXEN 01/17/2023 4 - Hives Date Reviewed: 02/05/2023 Reviewed by: Myah Strickland RN - Fully Assessed Reason for Visit: Home Care [4073] Cmt: Confirmation call Prescriptions as of 02/06/2023 - albuterol HFA (VENTOLIN HFA) 90 mcg/actuation inhaler Inhale 2 Puffs as instructed every 4 hours as needed for wheezing/shortness of breath. - rizatriptan (MAXALT) 10 mg tablet Take 10 mg by mouth as needed for migraine headache (see administration instructions). May repeat dose after 2 hours if needed. Maximum daily dose is 30 mg per day. - gabapentin (NEURONTIN) 300 mg capsule Take 300 mg by mouth three times a day. - escitalopram oxalate (LEXAPRO) 10 mg tablet Take 10 mg by mouth once daily. - lisinopril-hydroCHLORO thiazide (ZESTORETIC) 10-12.5 mg per tablet Take 1 tablet by mouth once daily. - dextromethorphan HBr (DEXALONE ORAL) Take 60 mg by mouth once daily. - rosuvastatin (CRESTOR) 10 mg tablet Take 10 mg by mouth every other day. - bumetanide (BUMEX) 1 mg tablet Take 1 mg by mouth once daily. - LORazepam (ATIVAN) 1 mg tablet Take 1 mg by mouth at bedtime as needed for anxiety. Facility-Administered Medications as of 02/06/2023 - cefdinir 300 mg (OMNICEF) - lactobacillus rhamnosus 10 billion cell (CULTURELLE) capsule - Dexlansoprazole CpDM 60 mg (PATIENT'S HOME MEDICATION) - miconazole 2 % 1 application topical powder - furosemide 20 mg tab(s) (LASIX) - famotidine 20 mg tab(s) (PEPCID) - enoxaparin 60 mg injection (LOVENOX) - rosuvastatin 10 mg tab(s) (CRESTOR) - ipratropium-albuterol 3 mL nebulizer solution (DUONEB) - lisinopril 10 mg tab(s) (ZESTRIL) - hydroCHLOROthiazide 12.5 mg tab(s) - LORazepam 1 mg tab(s) (more content not included)... [facility] NURSING PROGon 02-06-2023 NURSING PROG Normal [facility] SOCIAL WORKon 02-06-2023 SOCIAL WORK Normal [facility] THERAPY NTon 02-06-2023 THERAPY NT Normal [facility] THERAPY NT Normal [facility] CASE MANAGEMon 02-05-2023 CASE MANAGEM Normal [facility] CNPNon 02-05-2023 CNPN Telephone (HCSIND) CAROLYN PARNELL ([id number]) 1965 F Date Time Provider Department 02/05/23 IRAIDA HUI HCSIND During your visit today, we recorded the following information about you: Allergies As of Date: 02/05/2023 Noted Allergy Reaction MORPHINE 01/17/2023 4 - Hives NAPROXEN 01/17/2023 4 - Hives Date Reviewed: 02/05/2023 Reviewed by: Sarah Oh, RN - Fully Assessed Reason for Visit: Home Care [4073] Cmt: to follow Prescriptions as of 02/05/2023 - albuterol HFA (VENTOLIN HFA) 90 mcg/actuation inhaler Inhale 2 Puffs as instructed every 4 hours as needed for wheezing/shortness of breath. - bumetanide (BUMEX) 1 mg tablet Take 1 mg by mouth once daily. - dextromethorphan HBr (DEXALONE ORAL) Take 60 mg by mouth once daily. - escitalopram oxalate (LEXAPRO) 10 mg tablet Take 10 mg by mouth once daily. - gabapentin (NEURONTIN) 300 mg capsule Take 300 mg by mouth three times a day. - lisinopril-hydroCHLORO thiazide (ZESTORETIC) 10-12.5 mg per tablet Take 1 tablet by mouth once daily. - LORazepam (ATIVAN) 1 mg tablet Take 1 mg by mouth at bedtime as needed for anxiety. - rizatriptan (MAXALT) 10 mg tablet Take 10 mg by mouth as needed for migraine headache (see administration instructions). May repeat dose after 2 hours if needed. Maximum daily dose is 30 mg per day. - rosuvastatin (CRESTOR) 10 mg tablet Take 10 mg by mouth every other day. Facility-Administered Medications as of 02/05/2023 - acetaminophen 1,000 mg tab(s) (TYLENOL) - albuterol HFA 90 mcg/actuation 2 Puff (PROVENTIL HFA, VENTOLIN HFA) - cefdinir 300 mg (OMNICEF) - Dexlansoprazole CpDM 60 mg (PATIENT'S HOME MEDICATION) - enoxaparin 60 mg injection (LOVENOX) - escitalopram oxalate 10 mg tab(s) (LEXAPRO) - famotidine 20 mg tab(s) (PEPCID) - furosemide 20 mg tab(s) (LASIX) - gabapentin 300 mg cap(s) (NEURONTIN) - hydroCHLOROthiazide 12.5 mg tab(s) - ipratropium-albuterol 3 mL nebulizer solution (DUONEB) - lactobacillus rhamnosus 10 billion cell (CULTURELLE) capsule - lisinopril 10 mg tab(s) (ZESTRIL) - LORazepam 1 mg tab(s) (ATIVAN) - miconazole 2 % 1 application topical powder - oxyCODONE IR 5 mg tab(s) (ROXICODONE) - rosuvastatin 10 mg tab(s) (CRESTOR) - sodium hypochlorite 0.125 % ([employer]AR[employer] STRENGTH) - SUMAtriptan 50 mg tab(s) (IMITREX) - zinc oxide 20 % Problem List As Of Date 02/05/2023 Noted Resolved Sepsis (HCC) [A41.9] 01/18/2023 HTN (hypertension) [I10] 01/18/2023 Anxiety [F41.9] 01/18/2023 HLD (hyperlipidemia) [E78.5] 01/18/2023 UTI (urinary tract infection) [N39.0] 01/18/2023 Pneumonia [J18.9] 01/18/2023 Cellulitis [L03.90] 01/18/2023 Panniculitis [M79.3] 01/18/2023 Nicotine use disorder, F17.2 [F17.200] 01/18/2023 Obesity, Class III, BMI >= 40 [E66.01] 01/18/2023 Necrotizing soft tissue infection [M79.89] 01/19/2023 Alteration in skin integrity due to moisture [R*01/19/2023 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 Mild protein-calorie malnutrition (HCC) [E44.1] 01/24/2023 Aftercare [Z51.89] 01/26/2023 Acute respiratory failure with hypoxia (HCC) [J*01/27/2023 Encounter Status:Closed by IRAIDA HUI on 02/05/23 [facility] NURSING PROGon 02-05-2023 NURSING PROG Normal [facility] NUTRITIONon 02-05-2023 NUTRITION Normal [facility] THERAPY NTon 02-05-2023 THERAPY NT Normal [facility] THERAPY NT Normal [facility] THERAPY NTon 02-03-2023 THERAPY NT Normal [facility] THERAPY NTon 02-02-2023 THERAPY NT Normal [facility] THERAPY NT Normal [facility] THERAPY NT Normal [facility] NURSING PROGon 02-01-2023 NURSING PROG Normal [facility] NURSING PROG Normal [facility] THERAPY NTon 02-01-2023 THERAPY NT Normal [facility] THERAPY NT Normal [facility] THERAPY NT Normal [facility] CASE MANAGEMon 01-31-2023 CASE MANAGEM Normal [facility] THERAPY NTon 01-31-2023 THERAPY NT Normal [facility] THERAPY NT Normal [facility] CASE MGT INIT ASSESon 2022 CASE MGT INIT ASSES Normal [facility] NURSING PROGon 01-30-2023 NURSING PROG Normal [facility] THERAPY NTon 01-30-2023 THERAPY NT Normal [facility] THERAPY NT Normal [facility] Bacteria Wnd Culton 01-30-20 23 Bacteria identified Cx Nom (Wound) Abnormal [facility] Comment on above: Performed By: #### 6 462-6 ####[facility] LABORATORYCLIA [id number] [place] [address] [place] Basic metabolic 2000 panelon 01-29-2023 Anion gap [Moles/Vol] 5 mmol/L Low 9-18 [facility] Comment on above: Order Comment: Speci men Type: BLOOD SPECIMENOrdering Facility: [facility] Address: [address] [place] [address] Performed By: #### 2 4321-2 ####[facility] [place] LABCLIA [id number] [place] [address] [place] Calcium [Mass/Vol] 8.9 mg/dL Normal 8.5-10.2 [facility] Comment on above: Order Comment: Speci men Type: BLOOD SPECIMENOrdering Facility: [facility] Address: [address] [place] [address] Performed By: #### 2 4321-2 ####[facility] [place] LABCLIA [id number] [place] [address] [place] Chloride [Moles/Vol] 93 mmol/L Low 97-105 [facility] Comment on above: Order Comment: Speci men Type: BLOOD SPECIMENOrdering Facility: [facility] Address: [address] [place] [address] Performed By: #### 2 4321-2 ####[facility] [place] LABCLIA [id number] [place] [address] [place] CO2 [Moles/Vol] 39 mmol/L High 22-30 [facility] Comment on above: Order Comment: Speci men Type: BLOOD SPECIMENOrdering Facility: [facility] Address: [address] [place] [address] Performed By: #### 2 4321-2 ####[facility] [place] LABCLIA [id number] [place] [address] [place] Creatinine [Mass/Vol] 0.44 mg/dL Low 0.58-0.96 [facility] Comment on above: Order Comment: Jadon griggs Type: BLOOD SPECIMENOrdering Facility: [facility] Address: [address] [place] [address] Performed By: #### 2 4321-2 ####[facility] LABIA [id number] [place] [address] [facility] Creatinine and Glomerular filtration rate.predicted panel (S/P/Bld) 112 mL/min/1.73m??? Normal >=60 [facility] Comment on above: Order Comment: Jadon griggs Type: BLOOD SPECIMENOrdering Facility: [facility] Address: [address] [place] [address] Result Comment: Leslie mated Glomerular Filtration Rate (eGFR) is calculated using the 2020 CKD-EPI creatinine equation. This equation utilizes serum creatinine, sex, and age as parameters. The creatinine assay has traceable calibration to isotope dilution-mass spectrometry. Refer to KDIGO guidelines for clinical interpretation. In patients with unstable renal function, e.g. those with acute kidney injury, the eGFR may not accurately reflect actual GFR. Performed By: #### 2 4321-2 ####[facility] [id number] [place] [address] [place] Glucose [Mass/Vol] 93 mg/dL Normal 74-99 [facility] Comment on above: Order Comment: Jadon griggs Type: BLOOD SPECIMENOrdering Facility: [facility] Address: [address] [place] [address] Result Comment: The [place] Diabetes Association (ADA) provides guidance for cutoff values for fasting glucose and random glucose. The ADA defines fasting as no caloric intake for at least 8 hours. Fasting plasma glucose results between 100 to 125 mg/dL indicate increased risk for diabetes (prediabetes).Fasting plasma glucose results greater than or equal to 126 mg/dL meet the criteria for diagnosis of diabetes. In the absence of unequivocal hyperglycemia, results should be confirmed by repeat testing. In a patient with classic symptoms of hyperglycemia or hyperglycemic crisis, random plasma glucose results greater than or equal to 200 mg/dL meet the criteria for diagnosis of diabetes.Reference: Standards of Medical Care in Diabetes 2016, [employer] Diabetes Association. Diabetes Care. 2016.39(Suppl 1). Performed By: #### 2 4321-2 ####[facility] [employer] LABCLIA [id number] [place] [address] [place] Potassium [Moles/Vol] 3.8 mmol/L Normal 3.7-5.1 [facility] Comment on above: Order Comment: Speci men Type: BLOOD SPECIMENOrdering Facility: [facility] Address: [address] [place] [address] Performed By: #### 2 4321-2 ####[facility] [employer] LABCLIA [id number] [place] [address] [place] [facility] Sodium [Moles/Vol] 137 mmol/L Normal 136-144 [facility] Comment on above: Order Comment: Speci men Type: BLOOD SPECIMENOrdering Facility: [facility] Address: [address] [place] [address] Performed By: #### 2 4321-2 ####[facility] LABCLIA [id number] [place] [address] [place] [facility] Urea nitrogen [Mass/Vol] 9 mg/dL Normal 7-21 [facility] Comment on above: Order Comment: Speci men Type: BLOOD SPECIMENOrdering Facility: [facility] Address: [address] [place] [address] Performed By: #### 2 4321-2 ####[facility] LABCL[facility] [id number] [place] [address] [facility] [place] CBC panel Auto (Bld)on 01-29 Erythrocyte distribution width (RBC) [Ratio] 24.9 % High 11.5-15.0 [facility] Comment on above: Order Comment: Speci men Type: BLOOD SPECIMENOrdering Facility: [facility] Address: [address] [place] [address] Performed By: #### 5 8410-2 ####[facility] LABCLIA [id number] [address] Hematocrit (Bld) [Volume fraction] 37.9 % Normal 36.0-46.0 [facility] Comment on above: Order Comment: Speci men Type: BLOOD SPECIMENOrdering Facility: [facility] Address: [address] [place] [address] Performed By: #### 5 8410-2 ####[facility] LABCLIA [id number] [address] Hemoglobin (Bld) [Mass/Vol] 10.6 g/dL Low 11.5-15.5 [facility] Comment on above: Order Comment: Speci men Type: BLOOD SPECIMENOrdering Facility: [facility] Address: [address] [place] [address] Performed By: #### 5 8410-2 ####[facility] LABCLIA [id number] [address] STATES [facility] MCH (RBC) [Entitic mass] 21.5 pg Low 26.0-34.0 [facility] Comment on above: Order Comment: Speci men Type: BLOOD SPECIMENOrdering Facility: [facility] Address: [address] [place] [address] Performed By: #### 5 8410-2 ####[facility] LABCLIA [id number] [address] [place] MCHC (RBC) [Mass/Vol] 28.0 g/dL Low 30.5-36.0 [facility] Comment on above: Order Comment: Speci men Type: BLOOD SPECIMENOrdering Facility: [facility] Address: [address] [place] [address] Performed By: #### 5 8410-2 ####[facility] LABCLIA [id number] [address] MCV (RBC) [Entitic vol] 77.0 fL Low 80.0-100.0 [facility] Comment on above: Order Comment: Speci men Type: BLOOD SPECIMENOrdering Facility: [facility] Address: [address] [place] [address] Performed By: #### 5 8410-2 ####[facility] [place] LABCLIA [id number] [place] [address] [place] Platelet mean volume (Bld) [Entitic vol] 9.4 fL Normal 9.0-12.7 [facility] Comment on above: Order Comment: Speci men Type: BLOOD SPECIMENOrdering Facility: [facility] Address: [address] [place] [address] Performed By: #### 5 8410-2 ####[facility] [place] LABCLIA [id number] [place] [address] [place] [facility] [place] Platelets (Bld) [#/Vol] 242 10*3/uL Normal 150-400 [facility] Comment on above: Order Comment: Speci men Type: BLOOD SPECIMENOrdering Facility: [facility] Address: [address] [place] [address] Performed By: #### 5 8410-2 ####[facility] LABCLIA [id number] [facility] [place] [address] [place] RBC (Bld) [#/Vol] 4.92 10*6/uL Normal 3.90-5.20 [facility] Comment on above: Order Comment: Speci men Type: BLOOD SPECIMENOrdering Facility: [facility] Address: [address] [place] [address] Performed By: #### 5 8410-2 ####[facility] [place] LABCLIA [id number] [facility] [place] [address] [place] WBC (Bld) [#/Vol] 8.00 10*3/uL Normal 3.70-11.00 [facility] Comment on above: Order Comment: Speci men Type: BLOOD SPECIMENOrdering Facility: [facility] Address: [address] [place] [address] Performed By: #### 5 8410-2 ####[facility] [place] LABCLIA [id number] [place] [address] [place] NURSING PROGon 01-29-2023 NURSING PROG Normal [facility] NUTRITIONon 01-29-2023 NUTRITION Normal [facility] THERAPY NTon 01-29-2023 THERAPY NT Normal [facility] THERAPY NT Normal [facility] Basic metabolic 2000 panelon 01-28-2023 Anion gap [Moles/Vol] 5 mmol/L Low 9-18 [facility] Comment on above: Order Comment: Speci men Type: BLOOD SPECIMENOrdering Facility: [facility] Address: [address] [place] [address] Performed By: #### 2 4321-2 ####[facility] [place] LABCLIA [id number] [facility] [place] [address] [place] Calcium [Mass/Vol] 9.4 mg/dL Normal 8.5-10.2 [facility] Comment on above: Order Comment: Speci men Type: BLOOD SPECIMENOrdering Facility: [facility] Address: [address] [place] [address] Performed By: #### 2 4321-2 ####[facility] [place] LABCLIA [id number] [facility] [place] [address] [place] Chloride [Moles/Vol] 92 mmol/L Low 97-105 [facility] Comment on above: Order Comment: Speci men Type: BLOOD SPECIMENOrdering Facility: [facility] Address: [address] [place] [address] Performed By: #### 2 4321-2 ####[facility] [place] LABCLIA [id number] [place] [address] [place] CO2 [Moles/Vol] 40 mmol/L High 22-30 [facility] Comment on above: Order Comment: Speci men Type: BLOOD SPECIMENOrdering Facility: [facility] Address: [address] [place] [address] Performed By: #### 2 4321-2 ####[facility] [place] LABCLIA [id number] [facility] [place] [address] [place] Creatinine [Mass/Vol] 0.44 mg/dL Low 0.58-0.96 [facility] Comment on above: Order Comment: Jadon griggs Type: BLOOD SPECIMENOrdering Facility: [facility] Address: [place] [address] Performed By: #### 2 4321-2 ####[facility] LABCLIA [id number] [place] [address] [place] Creatinine and Glomerular filtration rate.predicted panel (S/P/Bld) 112 mL/min/1.73m??? Normal >=60 [facility] Comment on above: Order Comment: Jadon griggs Type: BLOOD SPECIMENOrdering Facility: [facility] Address: [place] [address] Result Comment: Leslie mated Glomerular Filtration Rate (eGFR) is calculated using the 2020 CKD-EPI creatinine equation. This equation utilizes serum creatinine, sex, and age as parameters. The creatinine assay has traceable calibration to isotope dilution-mass spectrometry. Refer to KDIGO guidelines for clinical interpretation. In patients with unstable renal function, e.g. those with acute kidney injury, the eGFR may not accurately reflect actual GFR. Performed By: #### 2 4321-2 ####[facility] LABCLIA [id number] [place] [address] [place] Glucose [Mass/Vol] 121 mg/dL High 74-99 [facility] Comment on above: Order Comment: Jadon griggs Type: BLOOD SPECIMENOrdering Facility: [facility] Address: [place] [address] Result Comment: The [place] Diabetes Association (ADA) provides guidance for cutoff values for fasting glucose and random glucose. The ADA defines fasting as no caloric intake for at least 8 hours. Fasting plasma glucose results between 100 to 125 mg/dL indicate increased risk for diabetes (prediabetes).Fasting plasma glucose results greater than or equal to 126 mg/dL meet the criteria for diagnosis of diabetes. In the absence of unequivocal hyperglycemia, results should be confirmed by repeat testing. In a patient with classic symptoms of hyperglycemia or hyperglycemic crisis, random plasma glucose results greater than or equal to 200 mg/dL meet the criteria for diagnosis of diabetes.Reference: Standards of Medical Care in Diabetes 2016, [employer] Diabetes Association. Diabetes Care. 2016.39(Suppl 1). Performed By: #### 2 4321-2 ####[facility] [employer] LABCLIA [id number] [place] [address] [place] Potassium [Moles/Vol] 4.1 mmol/L Normal 3.7-5.1 [facility] Comment on above: Order Comment: Speci men Type: BLOOD SPECIMENOrdering Facility: [facility] Address: [address] [place] [address] Performed By: #### 2 4321-2 ####[facility] LABCLIA [id number] [place] [address] [place] [facility] Sodium [Moles/Vol] 137 mmol/L Normal 136-144 [facility] Comment on above: Order Comment: Speci men Type: BLOOD SPECIMENOrdering Facility: [facility] Address: [address] [place] [address] Performed By: #### 2 4321-2 ####[facility] LABCLIA [id number] [place] [address] [place] [facility] Urea nitrogen [Mass/Vol] 11 mg/dL Normal 7-21 [facility] Comment on above: Order Comment: Speci men Type: BLOOD SPECIMENOrdering Facility: [facility] Address: [address] [place] [address] Performed By: #### 2 4321-2 ####[facility] LABCLIA [id number] [place] [address] [facility] CBC panel Auto (Bld)on 01-28 Erythrocyte distribution width (RBC) [Ratio] 25.1 % High 11.5-15.0 [facility] Comment on above: Order Comment: Speci men Type: BLOOD SPECIMENOrdering Facility: [facility] Address: [address] [place] [address] Performed By: #### 5 8410-2 ####[facility] LABCLIA [id number] [place] [address] [place] Hematocrit (Bld) [Volume fraction] 40.0 % Normal 36.0-46.0 [facility] Comment on above: Order Comment: Speci men Type: BLOOD SPECIMENOrdering Facility: [facility] Address: [address] [place] [address] Performed By: #### 5 8410-2 ####[facility] LABCLIA [id number] [place] [address] [place] Hemoglobin (Bld) [Mass/Vol] 11.3 g/dL Low 11.5-15.5 [facility] Comment on above: Order Comment: Speci men Type: BLOOD SPECIMENOrdering Facility: [facility] Address: [address] [place] [address] Performed By: #### 5 8410-2 ####[facility] LABCLIA [id number] [place] [address] [place] MCH (RBC) [Entitic mass] 21.6 pg Low 26.0-34.0 [facility] Comment on above: Order Comment: Speci men Type: BLOOD SPECIMENOrdering Facility: [facility] Address: [address] [place] [address] Performed By: #### 5 8410-2 ####[facility] LABCLIA [id number] [place] [id number] [place] MCHC (RBC) [Mass/Vol] 28.3 g/dL Low 30.5-36.0 [facility] Comment on above: Order Comment: Speci men Type: BLOOD SPECIMENOrdering Facility: [facility] Address: [address] [place] [address] Performed By: #### 5 8410-2 ####[facility] LABCLIA [id number] [place] [id number] [place] MCV (RBC) [Entitic vol] 76.6 fL Low 80.0-100.0 [facility] Comment on above: Order Comment: Speci men Type: BLOOD SPECIMENOrdering Facility: [facility] Address: [address] [place] [address] Performed By: #### 5 8410-2 ####[facility] [place] LABCLIA [id number] [place] [address] [place] Platelet mean volume (Bld) [Entitic vol] 9.0 fL Normal 9.0-12.7 [facility] Comment on above: Order Comment: Speci men Type: BLOOD SPECIMENOrdering Facility: [facility] Address: [address] [place] [address] Performed By: #### 5 8410-2 ####[facility] LABCLIA [id number] [place] [facility] [place] [address] [place] Platelets (Bld) [#/Vol] 265 10*3/uL Normal 150-400 [facility] Comment on above: Order Comment: Speci men Type: BLOOD SPECIMENOrdering Facility: [facility] Address: [address] [place] [address] Performed By: #### 5 8410-2 ####[facility] LABCLIA [id number] [place] [address] [place] RBC (Bld) [#/Vol] 5.22 10*6/uL High 3.90-5.20 [facility] Comment on above: Order Comment: Speci men Type: BLOOD SPECIMENOrdering Facility: [facility] Address: [address] [place] [address] Performed By: #### 5 8410-2 ####[facility] LABCLIA [id number] [place] [address] [place] WBC (Bld) [#/Vol] 12.35 10*3/uL High 3.70-11.00 [facility] Comment on above: Order Comment: Speci men Type: BLOOD SPECIMENOrdering Facility: [facility] Address: [address] [place] [address] Performed By: #### 5 8410-2 ####[facility] LABCLIA [id number] [facility] [place] [address] [facility] Urinalysis complete panel (U )on 01-28-2023 Bacteria LM.HPF (Urine sed) [#/Area] Few Abnormal None Seen [facility] Comment on above: Order Comment: Speci men Type: URINE SPECIMENOrdering Facility: [facility] Address: [address] [place] [address] Performed By: #### 2 4356-8 ####[facility] LABCLIA [id number] [facility] [place] [address] [facility] Bilirubin Ql (U) Negative Normal Negative [facility] Comment on above: Order Comment: Speci men Type: URINE SPECIMENOrdering Facility: [facility] Address: [address] [place] [address] Performed By: #### 2 4356-8 ####[facility] LABCLIA [id number] [place] [address] [facility] Clarity (Unsp spec) Clear Normal Clear [facility] Comment on above: Order Comment: Speci men Type: URINE SPECIMENOrdering Facility: [facility] Address: [address] [place] [address] Performed By: #### 2 4356-8 ####[facility] LABCLIA [id number] [place] [address] [facility] Color (U) Dark Yellow Abnormal Yellow [facility] Comment on above: Order Comment: Speci men Type: URINE SPECIMENOrdering Facility: [facility] Address: [address] [place] [address] Performed By: #### 2 4356-8 ####[facility] LABCLIA [id number] [place] [address] [facility] Epithelial cells LM.HPF (Urine sed) [#/Area] Moderate Normal [facility] Comment on above: Order Comment: Speci men Type: URINE SPECIMENOrdering Facility: [facility] Address: [address] [place] [address] Result Comment: Few Performed By: #### 2 4356-8 ####[facility] LABCLIA [id number] [place] [address] [facility] Glucose Test strip (U) [Mass/Vol] Negative Normal Negative [facility] Comment on above: Order Comment: Speci men Type: URINE SPECIMENOrdering Facility: [facility] Address: [address] [place] [address] Performed By: #### 2 4356-8 ####[facility] LABCLIA [id number] [facility] [place] [address] [place] [facility] Hemoglobin Ql (U) Negative Normal Negative [facility] Comment on above: Order Comment: Speci men Type: URINE SPECIMENOrdering Facility: [facility] Address: [address] [place] [address] Performed By: #### 2 4356-8 ####[facility] LABCLIA [id number] [place] [address] [facility] Ketones Ql (U) Negative Normal Negative [facility] Comment on above: Order Comment: Speci men Type: URINE SPECIMENOrdering Facility: [facility] Address: [address] [place] [address] Performed By: #### 2 4356-8 ####[facility] LABCLIA [id number] [place] [address] [facility] Leukocyte esterase Test strip Ql (U) Negative Normal Negative [facility] Comment on above: Order Comment: Speci men Type: URINE SPECIMENOrdering Facility: [facility] Address: [address] [place] [address] Performed By: #### 2 4356-8 ####[facility] LABCLIA [id number] [facility] [place] [facility] [place] [address] [place] Nitrite Ql (U) Negative Normal Negative [facility] Comment on above: Order Comment: Speci men Type: URINE SPECIMENOrdering Facility: [facility] Address: [address] [place] [address] Performed By: #### 2 4356-8 ####[facility] LABCLIA [id number] [place] [address] [place] pH (U) [pH] High 5.0-8.0 [facility] Comment on above: Order Comment: Speci men Type: URINE SPECIMENOrdering Facility: [facility] Address: [address] [place] [address] Performed By: #### 2 4356-8 ####[facility] LABCLIA [id number] [place] [address] [facility] Protein (U) [Mass/Vol] 2+ Abnormal Negative [facility] Comment on above: Order Comment: Speci men Type: URINE SPECIMENOrdering Facility: [facility] Address: [address] [place] [address] Performed By: #### 2 4356-8 ####[facility] LABCLIA [id number] [place] [address] [facility] [place] RBC LM.HPF (Urine sed) [#/Area] 3-5 /HPF Abnormal 0-3 /HPF [facility] Comment on above: Order Comment: Speci men Type: URINE SPECIMENOrdering Facility: [facility] Address: [address] [place] [address] Performed By: #### 2 4356-8 ####[facility] LABCLIA [id number] [place] [id number] [facility] [place] Specific gravity (U) [Rel density] 1.015 Normal 1.005-1.030 [facility] Comment on above: Order Comment: Speci men Type: URINE SPECIMENOrdering Facility: [facility] Address: [address] [place] [address] Performed By: #### 2 4356-8 ####[facility] LABCLIA [id number] [place] [address] [facility] Urobilinogen Ql (U) 0.2 EU/dL Normal 0.2-1.0 EU/dL [facility] Comment on above: Order Comment: Speci men Type: URINE SPECIMENOrdering Facility: [facility] Address: [address] [place] [address] Performed By: #### 2 4356-8 ####[facility] LABCLIA [id number] [place] [address] [place] WBC LM.HPF (Urine sed) [#/Area] 0-5 /HPF Normal 0-5 /HPF [facility] Comment on above: Order Comment: Speci men Type: URINE SPECIMENOrdering Facility: [facility] Address: [address] [place] [address] Performed By: #### 2 4356-8 ####[facility] LABCLIA [id number] [place] [address] [place] ARTERIAL BLOOD GASESon 01-27 Base excess Calc (Bld) [Moles/Vol] 19 mmol/L High 0-2 [facility] Comment on above: Order Comment: Speci men Type: ARTERIAL BLOOD SPECIMENOrdering Facility: [facility] Address: [address] [place] [address] Performed By: #### A LLBG ####[facility] LABCLIA [id number] [place] [address] [facility] [place] Body temperature 98.78 [degF] Normal [facility] Comment on above: Order Comment: Speci men Type: ARTERIAL BLOOD SPECIMENOrdering Facility: [facility] Address: [address] [place] [address] Performed By: #### A LLBG ####[facility] LABCLIA [id number] [place] [address] [place] Calcium.ionized (Bld) [Mass/Vol] 1.18 mmol/L Normal 1.08-1.30 [facility] Comment on above: Order Comment: Speci men Type: ARTERIAL BLOOD SPECIMENOrdering Facility: [facility] Address: [address] [place] [address] Performed By: #### A LLBG ####[facility] LABCLIA [id number] [place] [address] [place] Calcium.ionized adjusted to pH 7.4 (BldA) [Moles/Vol] 1.19 mmol/L Normal 1.08-1.30 [facility] Comment on above: Order Comment: Speci men Type: ARTERIAL BLOOD SPECIMENOrdering Facility: [facility] Address: [address] [place] [address] Performed By: #### A LLBG ####[facility] LABCLIA [id number] [place] [address] [place] Carboxyhemoglobin (BldA) [Mass fraction] 2.4 % High 0.0-2.0 [facility] Comment on above: Order Comment: Speci men Type: ARTERIAL BLOOD SPECIMENOrdering Facility: [facility] Address: [address] [place] [address] Result Comment: Carb oxyhemoglobin Reference Range for Smokers: 2.0-8.0% Performed By: #### A LLBG ####[facility] LABCLIA [id number] [place] [address] [place] Chloride [Moles/Vol] 86 mmol/L Low 97-105 [facility] Comment on above: Order Comment: Speci men Type: ARTERIAL BLOOD SPECIMENOrdering Facility: [facility] Address: [address] [place] [address] Performed By: #### A LLBG ####[facility] LABCLIA [id number] [place] [address] [facility] [place] CO2 (Bld) [Partial pressure] 73 mm Hg High 36-46 [facility] Comment on above: Order Comment: Speci men Type: ARTERIAL BLOOD SPECIMENOrdering Facility: [facility] Address: [address] [place] [address] Performed By: #### A LLBG ####[facility] LABCLIA [id number] [place] [address] [place] CO2 adjusted to patient's actual temperature (Bld) [Partial pressure] 74 mmHg High 36-46 [facility] Comment on above: Order Comment: Speci men Type: ARTERIAL BLOOD SPECIMENOrdering Facility: [facility] Address: [address] [place] [address] Performed By: #### A LLBG ####[facility] LABCLIA [id number] [place] [address] [place] Glucose [Mass/Vol] 131 mg/dL High 60-105 [facility] Comment on above: Order Comment: Speci men Type: ARTERIAL BLOOD SPECIMENOrdering Facility: [facility] Address: [address] [place] [address] Performed By: #### A LLBG ####[facility] LABCLIA [id number] [place] [address] [place] HCO3 (Bld) [Moles/Vol] 47 mmol/L High 22-26 [facility] Comment on above: Order Comment: Speci men Type: ARTERIAL BLOOD SPECIMENOrdering Facility: [facility] Address: [address] [place] [address] Performed By: #### A LLBG ####[facility] LABCLIA [id number] [place] [address] [place] Hematocrit (Bld) [Volume fraction] 35.4 % Low 36.0-46.0 [facility] Comment on above: Order Comment: Speci men Type: ARTERIAL BLOOD SPECIMENOrdering Facility: [facility] Address: [address] [place] [address] Performed By: #### A LLBG ####[facility] LABCLIA [id number] [place] [address] [place] Hemoglobin (Bld) [Mass/Vol] 11.5 g/dL Normal 11.5-15.5 [facility] Comment on above: Order Comment: Speci men Type: ARTERIAL BLOOD SPECIMENOrdering Facility: [facility] Address: [address] [place] [address] Performed By: #### A LLBG ####[facility] LABCLIA [id number] [place] [address] [place] Lactate [Moles/Vol] 0.9 mmol/L Normal 0.5-2.2 [facility] Comment on above: Order Comment: Speci men Type: ARTERIAL BLOOD SPECIMENOrdering Facility: [facility] Address: [address] [place] [address] Performed By: #### A LLBG ####[facility] LABCLIA [id number] [place] [address] [place] LITERS 3 Liters/min Normal [facility] Comment on above: Order Comment: Speci men Type: ARTERIAL BLOOD SPECIMENOrdering Facility: [facility] Address: [address] [place] [address] Performed By: #### A LLBG ####[facility] LABCLIA [id number] [place] [address] [facility] [place] Methemoglobin (Bld) [Mass fraction] 1.1 % Normal 0.0-1.5 [facility] Comment on above: Order Comment: Speci men Type: ARTERIAL BLOOD SPECIMENOrdering Facility: [facility] Address: [address] [place] [address] Performed By: #### A LLBG ####[facility] LABCLIA [id number] [place] [address] [facility] O2 THERAPY NC = Nasal Cannula Normal [facility] Comment on above: Order Comment: Speci men Type: ARTERIAL BLOOD SPECIMENOrdering Facility: [facility] Address: [address] [place] [address] Performed By: #### A LLBG ####[facility] LABCLIA [id number] [place] [address] [facility] [place] Oxygen (Bld) [Partial pressure] 72 mm Hg Low 85-95 [facility] Comment on above: Order Comment: Speci men Type: ARTERIAL BLOOD SPECIMENOrdering Facility: [facility] Address: [address] [place] [address] Performed By: #### A LLBG ####[facility] LABCLIA [id number] [place] [address] [facility] [place] Oxygen adjusted to patient's actual temperature (Bld) [Partial pressure] 72 mmHg Low 85-95 [facility] Comment on above: Order Comment: Speci men Type: ARTERIAL BLOOD SPECIMENOrdering Facility: [facility] Address: [address] [place] [address] Performed By: #### A LLBG ####[facility] LABCLIA [id number] [place] [address] [place] Oxyhemoglobin (BldA) [Mass fraction] 90 % Low 95-98 [facility] Comment on above: Order Comment: Speci men Type: ARTERIAL BLOOD SPECIMENOrdering Facility: [facility] Address: [address] [place] [address] Performed By: #### A LLBG ####[facility] LABCLIA [id number] [place] [address] [place] pH (Bld) 7.41 [pH] Normal 7.35-7.45 [facility] Comment on above: Order Comment: Speci men Type: ARTERIAL BLOOD SPECIMENOrdering Facility: [facility] Address: [address] [place] [address] Performed By: #### A LLBG ####[facility] LABCLIA [id number] [place] [address] [place] [facility] pH adjusted to patient's actual temperature (Bld) 7.41 Normal 7.35-7.45 [facility] Comment on above: Order Comment: Speci men Type: ARTERIAL BLOOD SPECIMENOrdering Facility: [facility] Address: [address] [place] [address] Performed By: #### A LLBG ####[facility] LABCLIA [id number] [place] [address] [place] Potassium [Moles/Vol] 3.7 mmol/L Normal 3.5-5.0 [facility] Comment on above: Order Comment: Speci men Type: ARTERIAL BLOOD SPECIMENOrdering Facility: [facility] Address: [address] [place] [address] Performed By: #### A LLBG ####[facility] LABCLIA [id number] [place] [address] [place] Sodium [Moles/Vol] 137 mmol/L Normal 136-144 [facility] Comment on above: Order Comment: Speci men Type: ARTERIAL BLOOD SPECIMENOrdering Facility: [facility] Address: [address] [place] [address] Performed By: #### A LLBG ####[facility] LABCLIA [id number] [place] [address] [place] [facility] CBC panel Auto (Bld)on 01-27 Erythrocyte distribution width (RBC) [Ratio] 24.5 % High 11.5-15.0 [facility] Comment on above: Order Comment: Speci men Type: BLOOD SPECIMENOrdering Facility: [facility] Address: [address] [place] [address] Performed By: #### 5 8410-2 ####[facility] LABCLIA [id number] [place] [address] [place] [facility] Hematocrit (Bld) [Volume fraction] 38.6 % Normal 36.0-46.0 [facility] Comment on above: Order Comment: Speci men Type: BLOOD SPECIMENOrdering Facility: [facility] Address: [address] [place] [address] Performed By: #### 5 8410-2 ####[facility] LABCLIA [id number] [place] [address] [facility] Hemoglobin (Bld) [Mass/Vol] 11.0 g/dL Low 11.5-15.5 [facility] Comment on above: Order Comment: Speci men Type: BLOOD SPECIMENOrdering Facility: [facility] Address: [address] [place] [address] Performed By: #### 5 8410-2 ####[facility] LABCLIA [id number] [place] [address] [place] [facility] MCH (RBC) [Entitic mass] 21.9 pg Low 26.0-34.0 [facility] Comment on above: Order Comment: Speci men Type: BLOOD SPECIMENOrdering Facility: [facility] Address: [address] [place] [address] Performed By: #### 5 8410-2 ####[facility] LABCLIA [id number] [place] [address] [place] MCHC (RBC) [Mass/Vol] 28.5 g/dL Low 30.5-36.0 [facility] Comment on above: Order Comment: Speci men Type: BLOOD SPECIMENOrdering Facility: [facility] Address: [address] [place] [address] Performed By: #### 5 8410-2 ####[facility] LABCLIA [id number] [place] [address] [place] MCV (RBC) [Entitic vol] 76.9 fL Low 80.0-100.0 [facility] Comment on above: Order Comment: Speci men Type: BLOOD SPECIMENOrdering Facility: [facility] Address: [address] [place] [address] Performed By: #### 5 8410-2 ####[facility] LABCLIA [id number] [place] [address] [place] Platelet mean volume (Bld) [Entitic vol] 9.1 fL Normal 9.0-12.7 [facility] Comment on above: Order Comment: Speci men Type: BLOOD SPECIMENOrdering Facility: [facility] Address: [address] [place] [address] Performed By: #### 5 8410-2 ####[facility] LABCLIA [id number] [place] [address] [facility] [place] Platelets (Bld) [#/Vol] 247 10*3/uL Normal 150-400 [facility] Comment on above: Order Comment: Speci men Type: BLOOD SPECIMENOrdering Facility: [facility] Address: [address] [place] [address] Performed By: #### 5 8410-2 ####[facility] LABCLIA [id number] [place] [address] [place] RBC (Bld) [#/Vol] 5.02 10*6/uL Normal 3.90-5.20 [facility] Comment on above: Order Comment: Speci men Type: BLOOD SPECIMENOrdering Facility: [facility] Address: [address] [place] [address] Performed By: #### 5 8410-2 ####[facility] LABCLIA [id number] [place], [place] [id number] [place] [address] WBC (Bld) [#/Vol] 10.86 10*3/uL Normal 3.70-11.00 [facility] Comment on above: Order Comment: Speci men Type: BLOOD SPECIMENOrdering Facility: [facility] Address: [address] [place] [address] Performed By: #### 5 8410-2 ####[facility] LABCLIA [id number] [place], [place] [id number] [place] [address] FLUABV+SARS-CoV-2+RSV Pnl Re sp SWEETIE+probeon 01-27-2023 FLUABV+SARS-CoV-2+RSV Pnl Resp SWEETIE+probe Normal [facility] Comment on above: Performed By: #### 9 5941-1 ####[facility] LABCLIA [id number] [place], [place] [address] [place] [address] HISTORY PHYSICALon HISTORY PHYSICAL Normal [facility] NT-proBNP SerPl-mCncon 01-27 Natriuretic peptide.B prohormone N-Terminal [Mass/Vol] 1589 pg/mL High <125 [facility] Comment on above: Order Comment: Speci men Type: BLOOD SPECIMENOrdering Facility: [facility] Address: [address] [place] [address] Performed By: #### 3 3959-8, 91164-2 ####[facility] LABCLIA [id number] [address] Procalcitonin SerPl-mCncon 1 Procalcitonin [Mass/Vol] ng/mL Normal <0.09 [facility] Comment on above: Order Comment: Speci men Type: BLOOD SPECIMENOrdering Facility: [facility] Address: [address] [place] [address] Result Comment: For a guided interpretation of test results, please visit the Change in Procalcitonin Calculator, [email or web address]. Performed By: #### 3 3959-8, 28393-5 ####[facility] LABCLIA [id number] [place] [address] [place] THERAPY NTon 01-27-2023 THERAPY NT Normal [facility] THERAPY NT Normal [facility] XR CHEST 1V FRONTALon 2022 XR CHEST 1V FRONTAL Normal [facility] Basic metabolic 2000 panelon 01-26-2023 Anion gap [Moles/Vol] 4 mmol/L Low 9-18 [facility] Comment on above: Order Comment: Speci men Type: BLOOD SPECIMENOrdering Facility: [facility] Address: [address] [place] [address] Performed By: #### 2 4321-2 ####[facility]ORYCLIA [id number] [place] [address] [place] Calcium [Mass/Vol] 8.7 mg/dL Normal 8.5-10.2 [facility] Comment on above: Order Comment: Speci men Type: BLOOD SPECIMENOrdering Facility: [facility] Address: [address] [place] [address] Performed By: #### 2 4321-2 ####[facility] LABORATORYCLIA [id number] [place] [address] [place] Chloride [Moles/Vol] 93 mmol/L Low 97-105 [facility] Comment on above: Order Comment: Speci men Type: BLOOD SPECIMENOrdering Facility: [facility] Address: [address] [place] [address] Performed By: #### 2 4321-2 ####[facility] LABORATORYCLIA [id number] [place] [address] [place] CO2 [Moles/Vol] 43 mmol/L High 22-30 [facility] Comment on above: Order Comment: Speci men Type: BLOOD SPECIMENOrdering Facility: [facility] Address: [address] [place] [address] Performed By: #### 2 4321-2 ####[facility]ITAL[facility] [id number] [place] [id number] [place] Creatinine [Mass/Vol] 0.47 mg/dL Low 0.58-0.96 [facility] Comment on above: Order Comment: Juan Carlosalka griggs Type: BLOOD SPECIMENOrdering Facility: [facility] Address: [address] [place] [address] Performed By: #### 2 4321-2 ####[facility] [id number] [address] Creatinine and Glomerular filtration rate.predicted panel (S/P/Bld) 110 mL/min/1.73m??? Normal >=60 [facility] Comment on above: Order Comment: Jadon anson Type: BLOOD SPECIMENOrdering Facility: [facility] Address: [address] [place] [address] Result Comment: Leslie mated Glomerular Filtration Rate (eGFR) is calculated using the 2020 CKD-EPI creatinine equation. This equation utilizes serum creatinine, sex, and age as parameters. The creatinine assay has traceable calibration to isotope dilution-mass spectrometry. Refer to KDIGO guidelines for clinical interpretation. In patients with unstable renal function, e.g. those with acute kidney injury, the eGFR may not accurately reflect actual GFR. Performed By: #### 2 4321-2 ####[facility]ATORYCLIA [id number] [address] [place] Glucose [Mass/Vol] 101 mg/dL High 74-99 [facility] Comment on above: Order Comment: Jadon griggs Type: BLOOD SPECIMENOrdering Facility: [facility] Address: [address] [place] [address] Result Comment: The [place] [employer] (ADA) provides guidance for cutoff values for fasting glucose and random glucose. The ADA defines fasting as no caloric intake for at least 8 hours. Fasting plasma glucose results between 100 to 125 mg/dL indicate increased risk for diabetes (prediabetes).Fasting plasma glucose results greater than or equal to 126 mg/dL meet the criteria for diagnosis of diabetes. In the absence of unequivocal hyperglycemia, results should be confirmed by repeat testing. In a patient with classic symptoms of hyperglycemia or hyperglycemic crisis, random plasma glucose results greater than or equal to 200 mg/dL meet the criteria for diagnosis of diabetes.Reference: Standards of Medical Care in Diabetes 2016, [employer]. Diabetes Care. 2016.39(Suppl 1). Performed By: #### 2 4321-2 ####[facility]ATORYCLIA [id number] [address] OF [facility] Potassium [Moles/Vol] 3.8 mmol/L Normal 3.7-5.1 [facility] Comment on above: Order Comment: Speci men Type: BLOOD SPECIMENOrdering Facility: [facility] Address: [address] [place] [address] Performed By: #### 2 4321-2 ####[facility]ATORYCLIA [id number] [address] STATES [facility] Sodium [Moles/Vol] 140 mmol/L Normal 136-144 [facility] Comment on above: Order Comment: Speci men Type: BLOOD SPECIMENOrdering Facility: [facility] Address: [address] [place] [address] Performed By: #### 2 4321-2 ####[facility]ATORYCLIA [id number] [address] STATES [facility] Urea nitrogen [Mass/Vol] 18 mg/dL Normal 7-21 [facility] Comment on above: Order Comment: Speci men Type: BLOOD SPECIMENOrdering Facility: [facility] Address: [address] [place] [address] Performed By: #### 2 4321-2 ####[facility]ATORYCLIA [id number] [address] [place] CASE MANAGEMon 01-26-2023 CASE MANAGEM Normal [facility] CASE MANAGEM Normal [facility] CBC panel Auto (Bld)on 01-26 Erythrocyte distribution width (RBC) [Ratio] 23.9 % High 11.5-15.0 [facility] Comment on above: Order Comment: Speci men Type: BLOOD SPECIMENOrdering Facility: [facility] Address: [address] [place] [address] Performed By: #### 5 8410-2 ####[facility]ATORYCLIA [id number] [address] STATES OF [facility] Hematocrit (Bld) [Volume fraction] 37.5 % Normal 36.0-46.0 [facility] Comment on above: Order Comment: Speci men Type: BLOOD SPECIMENOrdering Facility: [facility] Address: [address] [place] [address] Performed By: #### 5 8410-2 ####[facility]ATORYCLIA [id number] [address] OF [facility] Hemoglobin (Bld) [Mass/Vol] 10.9 g/dL Low 11.5-15.5 [facility] Comment on above: Order Comment: Speci men Type: BLOOD SPECIMENOrdering Facility: [facility] Address: [address] [place] [address] Performed By: #### 5 8410-2 ####[facility]ATORYCLIA [id number] [address] [place] MCH (RBC) [Entitic mass] 21.6 pg Low 26.0-34.0 [facility] Comment on above: Order Comment: Speci men Type: BLOOD SPECIMENOrdering Facility: [facility] Address: [address] [place] [address] Performed By: #### 5 8410-2 ####[facility]ATORYCLIA [id number] [address] [place] MCHC (RBC) [Mass/Vol] 29.1 g/dL Low 30.5-36.0 [facility] Comment on above: Order Comment: Speci men Type: BLOOD SPECIMENOrdering Facility: [facility] Address: [address] [place] [address] Performed By: #### 5 8410-2 ####[facility]ATORYCLIA [id number] [address] [place] MCV (RBC) [Entitic vol] 74.4 fL Low 80.0-100.0 [facility] Comment on above: Order Comment: Speci men Type: BLOOD SPECIMENOrdering Facility: [facility] Address: [address] [place] [address] Performed By: #### 5 8410-2 ####[facility]ATORYCLIA [id number] [address] [place] Nucleated RBC (Bld) [#/Vol] 10*3/uL Normal <0.01 [facility] Comment on above: Order Comment: Speci men Type: BLOOD SPECIMENOrdering Facility: [facility] Address: [address] [place] [address] Performed By: #### 5 8410-2 ####[facility]ATORYCLIA [id number] [address] [place] Platelet mean volume (Bld) [Entitic vol] 9.6 fL Normal 9.0-12.7 [facility] Comment on above: Order Comment: Speci men Type: BLOOD SPECIMENOrdering Facility: [facility] Address: [address] [place] [address] Performed By: #### 5 8410-2 ####[facility]ATORYCLIA [id number] [address] [place] Platelets (Bld) [#/Vol] 254 10*3/uL Normal 150-400 [facility] Comment on above: Order Comment: Speci men Type: BLOOD SPECIMENOrdering Facility: [facility] Address: [address] [place] [address] Performed By: #### 5 8410-2 ####[facility]ATORYCLIA [id number] [address] [place] RBC (Bld) [#/Vol] 5.04 10*6/uL Normal 3.90-5.20 [facility] Comment on above: Order Comment: Speci men Type: BLOOD SPECIMENOrdering Facility: [facility] Address: [address] [place] [address] Performed By: #### 5 8410-2 ####[facility]ATORYCLIA [id number] [place] [id number] [place] WBC (Bld) [#/Vol] 8.74 10*3/uL Normal 3.70-11.00 [facility] Comment on above: Order Comment: Speci men Type: BLOOD SPECIMENOrdering Facility: [facility] Address: [address] [place] [address] Performed By: #### 5 8410-2 ####[facility]ATORYCLIA [id number] [address] [place] CNDSon 01-26-2023 CNDS Normal [facility] XR CHEST 1V FRONTALon 2022 XR CHEST 1V FRONTAL Normal [facility] Basic metabolic 2000 panelon 01-25-2023 Anion gap [Moles/Vol] 6 mmol/L Low 9-18 [facility] Comment on above: Order Comment: Speci men Type: BLOOD SPECIMENOrdering Facility: [facility] Address: [address] [place] [address] Performed By: #### 2 4321-2 ####[facility]ATORYCLIA [id number] [place] [address] [place] Calcium [Mass/Vol] 9.1 mg/dL Normal 8.5-10.2 [facility] Comment on above: Order Comment: Speci men Type: BLOOD SPECIMENOrdering Facility: [facility] Address: [address] [place] [address] Performed By: #### 2 4321-2 ####[facility]ATORYCLIA [id number] [place] [address] [place] Chloride [Moles/Vol] 94 mmol/L Low 97-105 [facility] Comment on above: Order Comment: Speci men Type: BLOOD SPECIMENOrdering Facility: [facility] Address: [address] [place] [address] Performed By: #### 2 4321-2 ####[facility]ATORYCLIA [id number] [address] [place] CO2 [Moles/Vol] 39 mmol/L High 22-30 [facility] Comment on above: Order Comment: Speci men Type: BLOOD SPECIMENOrdering Facility: [facility] Address: [address] [place] [address] Performed By: #### 2 4321-2 ####[facility]ORATORYCLIA [id number] [place] [id number] [place] Creatinine [Mass/Vol] 0.46 mg/dL Low 0.58-0.96 [facility] Comment on above: Order Comment: Speci men Type: BLOOD SPECIMENOrdering Facility: [facility] Address: [address] [place] [address] Performed By: #### 2 4321-2 ####[facility]ORATORYCLIA [id number] [address] Creatinine and Glomerular filtration rate.predicted panel (S/P/Bld) 110 mL/min/1.73m??? Normal >=60 [facility] Comment on above: Order Comment: Speci men Type: BLOOD SPECIMENOrdering Facility: [facility] Address: [address] [place] [address] Result Comment: Leslie mated Glomerular Filtration Rate (eGFR) is calculated using the 2020 CKD-EPI creatinine equation. This equation utilizes serum creatinine, sex, and age as parameters. The creatinine assay has traceable calibration to isotope dilution-mass spectrometry. Refer to KDIGO guidelines for clinical interpretation. In patients with unstable renal function, e.g. those with acute kidney injury, the eGFR may not accurately reflect actual GFR. Performed By: #### 2 4321-2 ####[facility]ATORYCLIA [id number] [address] [place] Glucose [Mass/Vol] 101 mg/dL High 74-99 [facility] Comment on above: Order Comment: Speci men Type: BLOOD SPECIMENOrdering Facility: [facility] Address: [address] [place] [address] Result Comment: The [employer] Diabetes Association (ADA) provides guidance for cutoff values for fasting glucose and random glucose. The ADA defines fasting as no caloric intake for at least 8 hours. Fasting plasma glucose results between 100 to 125 mg/dL indicate increased risk for diabetes (prediabetes).Fasting plasma glucose results greater than or equal to 126 mg/dL meet the criteria for diagnosis of diabetes. In the absence of unequivocal hyperglycemia, results should be confirmed by repeat testing. In a patient with classic symptoms of hyperglycemia or hyperglycemic crisis, random plasma glucose results greater than or equal to 200 mg/dL meet the criteria for diagnosis of diabetes.Reference: Standards of Medical Care in Diabetes 2016, [employer]. Diabetes Care. 2016.39(Suppl 1). Performed By: #### 2 4321-2 ####[facility]ORATORYCLIA [id number] [address] STATES OF [facility] Potassium [Moles/Vol] 4.2 mmol/L Normal 3.7-5.1 [facility] Comment on above: Order Comment: Speci men Type: BLOOD SPECIMENOrdering Facility: [facility] Address: [address] [place] [address] Performed By: #### 2 4321-2 ####[facility]ATORYCLIA [id number] [address] [place] Sodium [Moles/Vol] 139 mmol/L Normal 136-144 [facility] Comment on above: Order Comment: Speci men Type: BLOOD SPECIMENOrdering Facility: [facility] Address: [address] [place] [address] Performed By: #### 2 4321-2 ####[facility]ATORYCLIA [id number] [address] STATES OF [facility] Urea nitrogen [Mass/Vol] 17 mg/dL Normal 7-21 [facility] Comment on above: Order Comment: Speci men Type: BLOOD SPECIMENOrdering Facility: [facility] Address: [address] [place] [address] Performed By: #### 2 4321-2 ####[facility]ORATORYCLIA [id number] [address] [place] CASE MANAGEMon 01-25-2023 CASE MANAGEM Normal [facility] CBC panel Auto (Bld)on 01-25 Erythrocyte distribution width (RBC) [Ratio] 24.1 % High 11.5-15.0 [facility] Comment on above: Order Comment: Speci men Type: BLOOD SPECIMENOrdering Facility: [facility] Address: [address] [place] [address] Performed By: #### 5 8410-2 ####[facility]ATORYCLIA [id number] [address] OF [facility] Hematocrit (Bld) [Volume fraction] 41.1 % Normal 36.0-46.0 [facility] Comment on above: Order Comment: Speci men Type: BLOOD SPECIMENOrdering Facility: [facility] Address: [address] [place] [address] Performed By: #### 5 8410-2 ####[facility]ATORYCLIA [id number] [address] [place] Hemoglobin (Bld) [Mass/Vol] 11.8 g/dL Normal 11.5-15.5 [facility] Comment on above: Order Comment: Speci men Type: BLOOD SPECIMENOrdering Facility: [facility] Address: [address] [place] [address] Performed By: #### 5 8410-2 ####[facility]ATORYCLIA [id number] [address] [place] MCH (RBC) [Entitic mass] 21.7 pg Low 26.0-34.0 [facility] Comment on above: Order Comment: Speci men Type: BLOOD SPECIMENOrdering Facility: [facility] Address: [address] [place] [address] Performed By: #### 5 8410-2 ####[facility]ATORYCLIA [id number] [address] [place] MCHC (RBC) [Mass/Vol] 28.7 g/dL Low 30.5-36.0 [facility] Comment on above: Order Comment: Speci men Type: BLOOD SPECIMENOrdering Facility: [facility] Address: [address] [place] [address] Performed By: #### 5 8410-2 ####[facility]ATORYCLIA [id number] [address] MCV (RBC) [Entitic vol] 75.7 fL Low 80.0-100.0 [facility] Comment on above: Order Comment: Speci men Type: BLOOD SPECIMENOrdering Facility: [facility] Address: [address] [place] [address] Performed By: #### 5 8410-2 ####[facility]ATORYCLIA [id number] [address] [place] Nucleated RBC (Bld) [#/Vol] 10*3/uL Normal <0.01 [facility] Comment on above: Order Comment: Speci men Type: BLOOD SPECIMENOrdering Facility: [facility] Address: [address] [place] [address] Performed By: #### 5 8410-2 ####[facility]ATORYCLIA [id number] [address] Platelet mean volume (Bld) [Entitic vol] 9.4 fL Normal 9.0-12.7 [facility] Comment on above: Order Comment: Speci men Type: BLOOD SPECIMENOrdering Facility: [facility] Address: [address] [place] [address] Performed By: #### 5 8410-2 ####[facility]ATORYCLIA [id number] [address] [place] Platelets (Bld) [#/Vol] 252 10*3/uL Normal 150-400 [facility] Comment on above: Order Comment: Speci men Type: BLOOD SPECIMENOrdering Facility: [facility] Address: [address] [place] [address] Performed By: #### 5 8410-2 ####[facility]ATORYCLIA [id number] [address] [place] RBC (Bld) [#/Vol] 5.43 10*6/uL High 3.90-5.20 [facility] Comment on above: Order Comment: Speci men Type: BLOOD SPECIMENOrdering Facility: [facility] Address: [address] [place] [address] Performed By: #### 5 8410-2 ####[facility]ATORYCLIA [id number] [place] [address] [place] WBC (Bld) [#/Vol] 7.33 10*3/uL Normal 3.70-11.00 [facility] Comment on above: Order Comment: Speci men Type: BLOOD SPECIMENOrdering Facility: [facility] Address: [address] [place] [address] Performed By: #### 5 8410-2 ####[facility]ATORYCLIA [id number] [place] [address] [place] XR CHEST 1V FRONTALon 2022 XR CHEST 1V FRONTAL Normal [facility] ALLIED HEALTHon 01-24-2023 ALLIED HEALTH Normal [facility] Basic metabolic 2000 panelon 01-24-2023 Anion gap [Moles/Vol] 5 mmol/L Low 9-18 [facility] Comment on above: Order Comment: Speci men Type: BLOOD SPECIMENOrdering Facility: [facility] Address: [address] [place] [address] Performed By: #### 2 4321-2 ####[facility]ORATORYCLIA [id number] [place] [address] [place] Calcium [Mass/Vol] 9.0 mg/dL Normal 8.5-10.2 [facility] Comment on above: Order Comment: Speci men Type: BLOOD SPECIMENOrdering Facility: [facility] Address: [address] [place] [address] Performed By: #### 2 4321-2 ####[facility]ATORYCLIA [id number] [place] [address] [place] Chloride [Moles/Vol] 95 mmol/L Low 97-105 [facility] Comment on above: Order Comment: Speci men Type: BLOOD SPECIMENOrdering Facility: [facility] Address: [address] [place] [address] Performed By: #### 2 4321-2 ####[facility]ATORYCLIA [id number] [address] STATES OF [facility] CO2 [Moles/Vol] 38 mmol/L High 22-30 [facility] Comment on above: Order Comment: Speci men Type: BLOOD SPECIMENOrdering Facility: [facility] Address: [address] [place] [address] Performed By: #### 2 4321-2 ####[facility]ATORYCLIA [id number] [address] [place] Creatinine [Mass/Vol] 0.39 mg/dL Low 0.58-0.96 [facility] Comment on above: Order Comment: Speci men Type: BLOOD SPECIMENOrdering Facility: [facility] Address: [address] [place] [address] Performed By: #### 2 4321-2 ####[facility]ITALCLIA [id number] [address] Creatinine and Glomerular filtration rate.predicted panel (S/P/Bld) 115 mL/min/1.73m??? Normal >=60 [facility] Comment on above: Order Comment: Specalka griggs Type: BLOOD SPECIMENOrdering Facility: [facility] Address: [address] [place] [address] Result Comment: Leslie mated Glomerular Filtration Rate (eGFR) is calculated using the 2020 CKD-EPI creatinine equation. This equation utilizes serum creatinine, sex, and age as parameters. The creatinine assay has traceable calibration to isotope dilution-mass spectrometry. Refer to KDIGO guidelines for clinical interpretation. In patients with unstable renal function, e.g. those with acute kidney injury, the eGFR may not accurately reflect actual GFR. Performed By: #### 2 4321-2 ####[facility]ATORYCLIA [id number] [address] OF [facility] Glucose [Mass/Vol] 94 mg/dL Normal 74-99 [facility] Comment on above: Order Comment: Speci men Type: BLOOD SPECIMENOrdering Facility: [facility] Address: [address] [place] [address] Result Comment: The [employer] Diabetes Association (ADA) provides guidance for cutoff values for fasting glucose and random glucose. The ADA defines fasting as no caloric intake for at least 8 hours. Fasting plasma glucose results between 100 to 125 mg/dL indicate increased risk for diabetes (prediabetes).Fasting plasma glucose results greater than or equal to 126 mg/dL meet the criteria for diagnosis of diabetes. In the absence of unequivocal hyperglycemia, results should be confirmed by repeat testing. In a patient with classic symptoms of hyperglycemia or hyperglycemic crisis, random plasma glucose results greater than or equal to 200 mg/dL meet the criteria for diagnosis of diabetes.Reference: Standards of Medical Care in Diabetes 2016, [employer]. Diabetes Care. 2016.39(Suppl 1). Performed By: #### 2 4321-2 ####[facility]ATORYCLIA [id number] [place] [address] [place] Potassium [Moles/Vol] 4.4 mmol/L Normal 3.7-5.1 [facility] Comment on above: Order Comment: Speci men Type: BLOOD SPECIMENOrdering Facility: [facility] Address: [address] [place] [address] Performed By: #### 2 1-2 ####[facility]ORATORYCLIA [id number] [place] [address] [place] Sodium [Moles/Vol] 138 mmol/L Normal 136-144 [facility] Comment on above: Order Comment: Speci men Type: BLOOD SPECIMENOrdering Facility: [facility] Address: [address] [place] [address] Performed By: #### 2 4321-2 ####[facility]ATORYCLIA [id number] [place] [address] [place] Urea nitrogen [Mass/Vol] 15 mg/dL Normal 7-21 [facility] Comment on above: Order Comment: Speci men Type: BLOOD SPECIMENOrdering Facility: [facility] Address: [address] [place] [address] Performed By: #### 2 4321-2 ####[facility] LABORATORYCLIA [id number] [address] OF [facility] CASE MANAGEMon 01-24-2023 CASE MANAGEM Normal [facility] CBC panel Auto (Bld)on 01-24 Erythrocyte distribution width (RBC) [Ratio] 23.8 % High 11.5-15.0 [facility] Comment on above: Order Comment: Speci men Type: BLOOD SPECIMENOrdering Facility: [facility] Address: [address] [place] [address] Performed By: #### 5 8410-2 ####[facility]ATORYCLIA [id number] [address] Hematocrit (Bld) [Volume fraction] 39.6 % Normal 36.0-46.0 [facility] Comment on above: Order Comment: Speci men Type: BLOOD SPECIMENOrdering Facility: [facility] Address: [address] [place] [address] Performed By: #### 5 8410-2 ####[facility]ATORYCLIA [id number] [address] Hemoglobin (Bld) [Mass/Vol] 11.3 g/dL Low 11.5-15.5 [facility] Comment on above: Order Comment: Speci men Type: BLOOD SPECIMENOrdering Facility: [facility] Address: [address] [place] [address] Performed By: #### 5 8410-2 ####[facility]ATORYCLIA [id number] [address] MCH (RBC) [Entitic mass] 21.6 pg Low 26.0-34.0 [facility] Comment on above: Order Comment: Speci men Type: BLOOD SPECIMENOrdering Facility: [facility] Address: [address] [place] [address] Performed By: #### 5 8410-2 ####[facility]ORATORYCLIA [id number] [address] STATES [facility] MCHC (RBC) [Mass/Vol] 28.5 g/dL Low 30.5-36.0 [facility] Comment on above: Order Comment: Speci men Type: BLOOD SPECIMENOrdering Facility: [facility] Address: [address] [place] [address] Performed By: #### 5 8410-2 ####[facility]ATORYCLIA [id number] [address] MCV (RBC) [Entitic vol] 75.7 fL Low 80.0-100.0 [facility] Comment on above: Order Comment: Speci men Type: BLOOD SPECIMENOrdering Facility: [facility] Address: [address] [place] [address] Performed By: #### 5 8410-2 ####[facility]ATORYCLIA [id number] [address] OF [facility] Nucleated RBC (Bld) [#/Vol] 10*3/uL Normal <0.01 [facility] Comment on above: Order Comment: Speci men Type: BLOOD SPECIMENOrdering Facility: [facility] Address: [address] [place] [address] Performed By: #### 5 8410-2 ####[facility]ATORYCLIA [id number] [address] Platelet mean volume (Bld) [Entitic vol] 9.8 fL Normal 9.0-12.7 [facility] Comment on above: Order Comment: Speci men Type: BLOOD SPECIMENOrdering Facility: [facility] Address: [address] [place] [address] Performed By: #### 5 8410-2 ####[facility]ATORYCLIA [id number] [address] Platelets (Bld) [#/Vol] 245 10*3/uL Normal 150-400 [facility] Comment on above: Order Comment: Speci men Type: BLOOD SPECIMENOrdering Facility: [facility] Address: [address] [place] [address] Performed By: #### 5 8410-2 ####[facility]ATORYCLIA [id number] [place] [address] [place] RBC (Bld) [#/Vol] 5.23 10*6/uL High 3.90-5.20 [facility] Comment on above: Order Comment: Speci men Type: BLOOD SPECIMENOrdering Facility: [facility] Address: [address] [place] [address] Performed By: #### 5 8410-2 ####[facility]ATORYCLIA [id number] [address] [place] WBC (Bld) [#/Vol] 8.22 10*3/uL Normal 3.70-11.00 [facility] Comment on above: Order Comment: Speci men Type: BLOOD SPECIMENOrdering Facility: [facility] Address: [address] [place] [address] Performed By: #### 5 8410-2 ####[facility]ORATORYCLIA [id number] [address] [place] CONSULT PROGon 01-24-2023 CONSULT PROG Normal [facility] NUTRITIONon 01-24-2023 NUTRITION Normal [facility] THERAPY NTon 01-24-2023 THERAPY NT Normal [facility] THERAPY NT Normal [facility] XR CHEST 1V FRONTALon 2022 XR CHEST 1V FRONTAL Normal [facility] ALLIED HEALTHon 01-23-2023 ALLIED HEALTH Normal [facility] Basic metabolic 2000 panelon 01-23-2023 Anion gap [Moles/Vol] 5 mmol/L Low 9-18 [facility] Comment on above: Order Comment: Speci men Type: BLOOD SPECIMENOrdering Facility: [facility] Address: [address] [place] [address] Performed By: #### 2 4321-2 ####[facility]ATORYCLIA [id number] [address] [place] Calcium [Mass/Vol] 8.9 mg/dL Normal 8.5-10.2 [facility] Comment on above: Order Comment: Speci men Type: BLOOD SPECIMENOrdering Facility: [facility] Address: [address] [place] [address] Performed By: #### 2 4321-2 ####[facility]ATORYCLIA [id number] [place] [address] [place] Chloride [Moles/Vol] 93 mmol/L Low 97-105 [facility] Comment on above: Order Comment: Speci men Type: BLOOD SPECIMENOrdering Facility: [facility] Address: [address] [place] [address] Performed By: #### 2 4321-2 ####[facility]ATORYCLIA [id number] [address] [place] CO2 [Moles/Vol] 38 mmol/L High 22-30 [facility] Comment on above: Order Comment: Speci men Type: BLOOD SPECIMENOrdering Facility: [facility] Address: [address] [place] [address] Performed By: #### 2 4321-2 ####[facility]ATORYCLIA [id number] [place] [address] [place] Creatinine [Mass/Vol] 0.41 mg/dL Low 0.58-0.96 [facility] Comment on above: Order Comment: Speci men Type: BLOOD SPECIMENOrdering Facility: [facility] Address: [address] [place] [address] Performed By: #### 2 4321-2 ####[facility]ATORYCLIA [id number] [address] Creatinine and Glomerular filtration rate.predicted panel (S/P/Bld) 113 mL/min/1.73m??? Normal >=60 [facility] Comment on above: Order Comment: Speci men Type: BLOOD SPECIMENOrdering Facility: [facility] Address: [address] [place] [address] Result Comment: Leslie mated Glomerular Filtration Rate (eGFR) is calculated using the 2020 CKD-EPI creatinine equation. This equation utilizes serum creatinine, sex, and age as parameters. The creatinine assay has traceable calibration to isotope dilution-mass spectrometry. Refer to KDIGO guidelines for clinical interpretation. In patients with unstable renal function, e.g. those with acute kidney injury, the eGFR may not accurately reflect actual GFR. Performed By: #### 2 4321-2 ####[facility]ATORYCLIA [id number] [place] [address] [place] Glucose [Mass/Vol] 86 mg/dL Normal 74-99 [facility] Comment on above: Order Comment: Jadon men Type: BLOOD SPECIMENOrdering Facility: [facility] Address: [address] [address] Result Comment: The [employer] Diabetes Association (ADA) provides guidance for cutoff values for fasting glucose and random glucose. The ADA defines fasting as no caloric intake for at least 8 hours. Fasting plasma glucose results between 100 to 125 mg/dL indicate increased risk for diabetes (prediabetes).Fasting plasma glucose results greater than or equal to 126 mg/dL meet the criteria for diagnosis of diabetes. In the absence of unequivocal hyperglycemia, results should be confirmed by repeat testing. In a patient with classic symptoms of hyperglycemia or hyperglycemic crisis, random plasma glucose results greater than or equal to 200 mg/dL meet the criteria for diagnosis of diabetes.Reference: Standards of Medical Care in Diabetes 2016, [employer] Diabetes Association. Diabetes Care. 2016.39(Suppl 1). Performed By: #### 2 4321-2 ####[facility]ATORYCLIA [id number] [place] [address] [place] Potassium [Moles/Vol] 4.6 mmol/L Normal 3.7-5.1 [facility] Comment on above: Order Comment: Jadon griggs Type: BLOOD SPECIMENOrdering Facility: [facility] Address: [address] [phone] Performed By: #### 2 4321-2 ####[facility]ATORYCLIA [id number] [place] [address] [place] Sodium [Moles/Vol] 136 mmol/L Normal 136-144 [facility] Comment on above: Order Comment: Jadon men Type: BLOOD SPECIMENOrdering Facility: [facility] Address: [address] [address] Performed By: #### 2 4321-2 ####[facility]ATORYCLIA [id number] [address] [place] Urea nitrogen [Mass/Vol] 15 mg/dL Normal 7-21 [facility] Comment on above: Order Comment: Speci men Type: BLOOD SPECIMENOrdering Facility: [facility] Address: [address] [address] Performed By: #### 2 4321-2 ####[facility]ATORYCLIA [id number] [address] [place] CASE MANAGEMon 01-23-2023 CASE MANAGEM Normal [facility] CBC panel Auto (Bld)on 01-23 Erythrocyte distribution width (RBC) [Ratio] 23.9 % High 11.5-15.0 [facility] Comment on above: Order Comment: Speci men Type: BLOOD SPECIMENOrdering Facility: [facility] Address: [address] [address] Performed By: #### 5 8410-2 ####[facility]ATORYCLIA [id number] [address] [place] Hematocrit (Bld) [Volume fraction] 40.1 % Normal 36.0-46.0 [facility] Comment on above: Order Comment: Speci men Type: BLOOD SPECIMENOrdering Facility: [facility] Address: [address] [address] Performed By: #### 5 8410-2 ####[facility]ATORYCLIA [id number] [address] [place] Hemoglobin (Bld) [Mass/Vol] 11.3 g/dL Low 11.5-15.5 [facility] Comment on above: Order Comment: Speci men Type: BLOOD SPECIMENOrdering Facility: [facility] Address: [address] [address] Performed By: #### 5 8410-2 ####[facility]ATORYCLIA [id number] [address] MCH (RBC) [Entitic mass] 21.4 pg Low 26.0-34.0 [facility] Comment on above: Order Comment: Speci men Type: BLOOD SPECIMENOrdering Facility: [facility] Address: [address] [place] [address] Performed By: #### 5 8410-2 ####[facility]ATORYCLIA [id number] [address] [place] MCHC (RBC) [Mass/Vol] 28.2 g/dL Low 30.5-36.0 [facility] Comment on above: Order Comment: Speci men Type: BLOOD SPECIMENOrdering Facility: [facility] Address: [address] [place] [address] Performed By: #### 5 8410-2 ####[facility]ATORYCLIA [id number] [address] MCV (RBC) [Entitic vol] 75.9 fL Low 80.0-100.0 [facility] Comment on above: Order Comment: Speci men Type: BLOOD SPECIMENOrdering Facility: [facility] Address: [address] [place] [address] Performed By: #### 5 8410-2 ####[facility]ATORYCLIA [id number] [address] Nucleated RBC (Bld) [#/Vol] 10*3/uL Normal <0.01 [facility] Comment on above: Order Comment: Speci men Type: BLOOD SPECIMENOrdering Facility: [facility] Address: [address] [place] [address] Performed By: #### 5 8410-2 ####[facility]ATORYCLIA [id number] [address] Platelet mean volume (Bld) [Entitic vol] 9.8 fL Normal 9.0-12.7 [facility] Comment on above: Order Comment: Speci men Type: BLOOD SPECIMENOrdering Facility: [facility] Address: [address] [place] [address] Performed By: #### 5 8410-2 ####[facility]ORATORYCLIA [id number] [address] OF [facility] Platelets (Bld) [#/Vol] 231 10*3/uL Normal 150-400 [facility] Comment on above: Order Comment: Speci men Type: BLOOD SPECIMENOrdering Facility: [facility] Address: [address] [place] [address] Performed By: #### 5 8410-2 ####[facility]ATORYCLIA [id number] [place] [address] [place] RBC (Bld) [#/Vol] 5.28 10*6/uL High 3.90-5.20 [facility] Comment on above: Order Comment: Speci men Type: BLOOD SPECIMENOrdering Facility: [facility] Address: [address] [place] [address] Performed By: #### 5 8410-2 ####[facility]ATORYCLIA [id number] [address] OF [facility] WBC (Bld) [#/Vol] 9.08 10*3/uL Normal 3.70-11.00 [facility] Comment on above: Order Comment: Speci men Type: BLOOD SPECIMENOrdering Facility: [facility] Address: [address] [place] [address] Performed By: #### 5 8410-2 ####[facility]ATORYCLIA [id number] [address] OF [facility] XR CHEST 1V FRONTALon 2022 XR CHEST 1V FRONTAL Normal [facility] ALLIED HEALTHon 01-22-2023 ALLIED HEALTH Normal [facility] ALLIED HEALTH Normal [facility] Basic metabolic 2000 panelon 01-22-2023 Anion gap [Moles/Vol] 9 mmol/L Normal 9-18 [facility] Comment on above: Order Comment: Speci men Type: BLOOD SPECIMENOrdering Facility: [facility] Address: [address] [place], [place] [address] Performed By: #### 2 4321-2 ####[facility]ATORYCLIA [id number] [address] [place] Calcium [Mass/Vol] 8.6 mg/dL Normal 8.5-10.2 [facility] Comment on above: Order Comment: Speci men Type: BLOOD SPECIMENOrdering Facility: [facility] Address: [address] [place] [address] Performed By: #### 2 4321-2 ####[facility]ATORYCLIA [id number] [place] [address] [place] Chloride [Moles/Vol] 94 mmol/L Low 97-105 [facility] Comment on above: Order Comment: Speci men Type: BLOOD SPECIMENOrdering Facility: [facility] Address: [address] [place] [address] Performed By: #### 2 4321-2 ####[facility]ATORYCLIA [id number] [address] [place] CO2 [Moles/Vol] 34 mmol/L High 22-30 [facility] Comment on above: Order Comment: Speci men Type: BLOOD SPECIMENOrdering Facility: [facility] Address: [address] [place] [address] Performed By: #### 2 4321-2 ####[facility]ATORYCLIA [id number] [address] [place] Creatinine [Mass/Vol] 0.40 mg/dL Low 0.58-0.96 [facility] Comment on above: Order Comment: Speci men Type: BLOOD SPECIMENOrdering Facility: [facility] Address: [address] [place] [address] Performed By: #### 2 4321-2 ####[facility]ATORYCLIA [id number] [address] [place] Creatinine and Glomerular filtration rate.predicted panel (S/P/Bld) 114 mL/min/1.73m??? Normal >=60 [facility] Comment on above: Order Comment: Jadon griggs Type: BLOOD SPECIMENOrdering Facility: [facility] Address: [address] [place] [address] Result Comment: Leslie mated Glomerular Filtration Rate (eGFR) is calculated using the 2020 CKD-EPI creatinine equation. This equation utilizes serum creatinine, sex, and age as parameters. The creatinine assay has traceable calibration to isotope dilution-mass spectrometry. Refer to KDIGO guidelines for clinical interpretation. In patients with unstable renal function, e.g. those with acute kidney injury, the eGFR may not accurately reflect actual GFR. Performed By: #### 2 4321-2 ####[facility]ATORYCLIA [id number] [place] [address] [place] Glucose [Mass/Vol] 86 mg/dL Normal 74-99 [facility] Comment on above: Order Comment: Jadon griggs Type: BLOOD SPECIMENOrdering Facility: [facility] Address: [address] [address] Result Comment: The [employer] Diabetes [employer] (ADA) provides guidance for cutoff values for fasting glucose and random glucose. The ADA defines fasting as no caloric intake for at least 8 hours. Fasting plasma glucose results between 100 to 125 mg/dL indicate increased risk for diabetes (prediabetes).Fasting plasma glucose results greater than or equal to 126 mg/dL meet the criteria for diagnosis of diabetes. In the absence of unequivocal hyperglycemia, results should be confirmed by repeat testing. In a patient with classic symptoms of hyperglycemia or hyperglycemic crisis, random plasma glucose results greater than or equal to 200 mg/dL meet the criteria for diagnosis of diabetes.Reference: Standards of Medical Care in Diabetes 2016, [employer]. Diabetes Care. 2016.39(Suppl 1). Performed By: #### 2 4321-2 ####[facility]ATORYCLIA [id number] [place] [address] [place] Potassium [Moles/Vol] 4.6 mmol/L Normal 3.7-5.1 [facility] Comment on above: Order Comment: Jadon griggs Type: BLOOD SPECIMENOrdering Facility: [facility] Address: [address] [address] Performed By: #### 2 4321-2 ####[facility]ATORYCLIA [id number] [address] STATES OF [facility] Sodium [Moles/Vol] 137 mmol/L Normal 136-144 [facility] Comment on above: Order Comment: Speci men Type: BLOOD SPECIMENOrdering Facility: [facility] Address: [address] [place] [address] Performed By: #### 2 4321-2 ####[facility]ATORYCLIA [id number] [address] [place] Urea nitrogen [Mass/Vol] 13 mg/dL Normal 7-21 [facility] Comment on above: Order Comment: Speci men Type: BLOOD SPECIMENOrdering Facility: [facility] Address: [address] [place] [address] Performed By: #### 2 4321-2 ####[facility]ATORYCLIA [id number] [address] OF [facility] CASE MANAGEMon 01-22-2023 CASE MANAGEM Normal [facility] CBC panel Auto (Bld)on 01-22 Erythrocyte distribution width (RBC) [Ratio] 23.9 % High 11.5-15.0 [facility] Comment on above: Order Comment: Speci men Type: BLOOD SPECIMENOrdering Facility: [facility] Address: [address] [place] [address] Performed By: #### 5 8410-2 ####[facility]ATORYCLIA [id number] [address] [place] Hematocrit (Bld) [Volume fraction] 39.7 % Normal 36.0-46.0 [facility] Comment on above: Order Comment: Speci men Type: BLOOD SPECIMENOrdering Facility: [facility] Address: [address] [place] [address] Performed By: #### 5 8410-2 ####[facility]ATORYCLIA [id number] [address] OF [facility] Hemoglobin (Bld) [Mass/Vol] 10.7 g/dL Low 11.5-15.5 [facility] Comment on above: Order Comment: Speci men Type: BLOOD SPECIMENOrdering Facility: [facility] Address: [address] [place] [address] Performed By: #### 5 8410-2 ####[facility]ATORYCLIA [id number] [address] STATES [facility] MCH (RBC) [Entitic mass] 20.7 pg Low 26.0-34.0 [facility] Comment on above: Order Comment: Speci men Type: BLOOD SPECIMENOrdering Facility: [facility] Address: [address] [place] [address] Performed By: #### 5 8410-2 ####[facility]ATORYCLIA [id number] [address] MCHC (RBC) [Mass/Vol] 27.0 g/dL Low 30.5-36.0 [facility] Comment on above: Order Comment: Speci men Type: BLOOD SPECIMENOrdering Facility: [facility] Address: [address] [place] [address] Performed By: #### 5 8410-2 ####[facility]ATORYCLIA [id number] [address] STATES [facility] MCV (RBC) [Entitic vol] 76.8 fL Low 80.0-100.0 [facility] Comment on above: Order Comment: Speci men Type: BLOOD SPECIMENOrdering Facility: [facility] Address: [address] [place] [address] Performed By: #### 5 8410-2 ####[facility]ATORYCLIA [id number] [address] Nucleated RBC (Bld) [#/Vol] 10*3/uL Normal <0.01 [facility] Comment on above: Order Comment: Speci men Type: BLOOD SPECIMENOrdering Facility: [facility] Address: [address] [place] [address] Performed By: #### 5 8410-2 ####[facility]ATORYCLIA [id number] [place] [address] [place] Platelet mean volume (Bld) [Entitic vol] 10.0 fL Normal 9.0-12.7 [facility] Comment on above: Order Comment: Speci men Type: BLOOD SPECIMENOrdering Facility: [facility] Address: [address] [place] [address] Performed By: #### 5 8410-2 ####[facility]ATORYCLIA [id number] [place] [address] [place] Platelets (Bld) [#/Vol] 192 10*3/uL Normal 150-400 [facility] Comment on above: Order Comment: Speci men Type: BLOOD SPECIMENOrdering Facility: [facility] Address: [address] [place] [address] Performed By: #### 5 8410-2 ####[facility]ATORYCLIA [id number] [place] [address] [place] RBC (Bld) [#/Vol] 5.17 10*6/uL Normal 3.90-5.20 [facility] Comment on above: Order Comment: Speci men Type: BLOOD SPECIMENOrdering Facility: [facility] Address: [address] [place] [address] Performed By: #### 5 8410-2 ####[facility]ATORYCLIA [id number] [place] [address] [place] WBC (Bld) [#/Vol] 9.58 10*3/uL Normal 3.70-11.00 [facility] Comment on above: Order Comment: Speci men Type: BLOOD SPECIMENOrdering Facility: [facility] Address: [address] [place] [address] Performed By: #### 5 8410-2 ####[facility]ATORYCLIA [id number] [address] [place] CONSULT PROGon 01-22-2023 CONSULT PROG Normal [facility] THERAPY NTon 01-22-2023 THERAPY NT Normal [facility] XR CHEST 1V FRONTALon 2022 XR CHEST 1V FRONTAL Normal [facility] ALLIED HEALTHon 01-21-2023 ALLIED HEALTH Normal [facility] Basic metabolic 2000 panelon 01-21-2023 Anion gap [Moles/Vol] 7 mmol/L Low 9-18 [facility] Comment on above: Order Comment: Speci men Type: BLOOD SPECIMENOrdering Facility: [facility] Address: [address] [place] [address] Performed By: #### 2 4321-2, , 2776-04 ####[facility]ATORYCLIA [id number] [place] [address] [place] Calcium [Mass/Vol] 8.9 mg/dL Normal 8.5-10.2 [facility] Comment on above: Order Comment: Speci men Type: BLOOD SPECIMENOrdering Facility: [facility] Address: [address] [place] [address] Performed By: #### 2 4321-2, , 2776-04 ####[facility]ATORYCLIA [id number] [place] [address] [place] Chloride [Moles/Vol] 93 mmol/L Low 97-105 [facility] Comment on above: Order Comment: Speci men Type: BLOOD SPECIMENOrdering Facility: [facility] Address: [address] [place] [address] Performed By: #### 2 4321-2, , 2776-04 ####[facility]ATORYCLIA [id number] [place] [address] [place] CO2 [Moles/Vol] 35 mmol/L High 22-30 [facility] Comment on above: Order Comment: Speci men Type: BLOOD SPECIMENOrdering Facility: [facility] Address: [address] [place] [address] Performed By: #### 2 4321-2, , 2776-04 ####[facility]ATORYCLIA [id number] [address] OF [facility] Creatinine [Mass/Vol] 0.47 mg/dL Low 0.58-0.96 [facility] Comment on above: Order Comment: Jadon griggs Type: BLOOD SPECIMENOrdering Facility: [facility] Address: [address] [id number] Performed By: #### 2 4321-2, , 2776-04 ####[facility]ITALCL[facility] [id number] [address] Creatinine and Glomerular filtration rate.predicted panel (S/P/Bld) 110 mL/min/1.73m??? Normal >=60 [facility] Comment on above: Order Comment: Jadon griggs Type: BLOOD SPECIMENOrdering Facility: [facility] Address: [address] [place] [address] Result Comment: Leslie mated Glomerular Filtration Rate (eGFR) is calculated using the 2020 CKD-EPI creatinine equation. This equation utilizes serum creatinine, sex, and age as parameters. The creatinine assay has traceable calibration to isotope dilution-mass spectrometry. Refer to KDIGO guidelines for clinical interpretation. In patients with unstable renal function, e.g. those with acute kidney injury, the eGFR may not accurately reflect actual GFR. Performed By: #### 2 4321-2, , 2776-04 ####[facility]ITALCLIA [id number] [address] OF [facility] Glucose [Mass/Vol] 121 mg/dL High 74-99 [facility] Comment on above: Order Comment: Jadon griggs Type: BLOOD SPECIMENOrdering Facility: [facility] Address: [address] [place], [place] [id number] Result Comment: The [employer] (ADA) provides guidance for cutoff values for fasting glucose and random glucose. The ADA defines fasting as no caloric intake for at least 8 hours. Fasting plasma glucose results between 100 to 125 mg/dL indicate increased risk for diabetes (prediabetes).Fasting plasma glucose results greater than or equal to 126 mg/dL meet the criteria for diagnosis of diabetes. In the absence of unequivocal hyperglycemia, results should be confirmed by repeat testing. In a patient with classic symptoms of hyperglycemia or hyperglycemic crisis, random plasma glucose results greater than or equal to 200 mg/dL meet the criteria for diagnosis of diabetes.Reference: Standards of Medical Care in Diabetes 2016, [employer]. Diabetes Care. 2016.39(Suppl 1). Performed By: #### 2 4321-2, , 2776-04 ####[facility]ORATORYCLIA [id number] [place] [address] [place] Potassium [Moles/Vol] 4.5 mmol/L Normal 3.7-5.1 [facility] Comment on above: Order Comment: Speci men Type: BLOOD SPECIMENOrdering Facility: [facility] Address: [address] [place] [address] Performed By: #### 2 4321-2, , 2776-04 ####[facility]ORATORYCLIA [id number] [address] STATES OF [facility] Sodium [Moles/Vol] 135 mmol/L Low 136-144 [facility] Comment on above: Order Comment: Speci men Type: BLOOD SPECIMENOrdering Facility: [facility] Address: [address] [place] [address] Performed By: #### 2 4321-2, , 2776-04 ####[facility]ATORYCLIA [id number] [address] STATES OF [facility] Urea nitrogen [Mass/Vol] 14 mg/dL Normal 7-21 [facility] Comment on above: Order Comment: Speci men Type: BLOOD SPECIMENOrdering Facility: [facility] Address: [address] [address] Performed By: #### 2 4321-2, , 2776-04 ####[facility]ATORYCLIA [id number] [address] [place] CBC panel Auto (Bld)on 01-21 Erythrocyte distribution width (RBC) [Ratio] 23.9 % High 11.5-15.0 [facility] Comment on above: Order Comment: Speci men Type: BLOOD SPECIMENOrdering Facility: [facility] Address: [address] [place] [address] Performed By: #### 5 8410-2 ####[facility]ATORYCLIA [id number] [address] Hematocrit (Bld) [Volume fraction] 37.1 % Normal 36.0-46.0 [facility] Comment on above: Order Comment: Speci men Type: BLOOD SPECIMENOrdering Facility: [facility] Address: [address] [place] [address] Performed By: #### 5 8410-2 ####[facility]ATORYCLIA [id number] [address] OF [facility] Hemoglobin (Bld) [Mass/Vol] 10.8 g/dL Low 11.5-15.5 [facility] Comment on above: Order Comment: Speci men Type: BLOOD SPECIMENOrdering Facility: [facility] Address: [address] [place] [address] Performed By: #### 5 8410-2 ####[facility]ATORYCLIA [id number] [address] STATES OF [facility] MCH (RBC) [Entitic mass] 21.8 pg Low 26.0-34.0 [facility] Comment on above: Order Comment: Speci men Type: BLOOD SPECIMENOrdering Facility: [facility] Address: [address] [place] [address] Performed By: #### 5 8410-2 ####[facility]ATORYCLIA [id number] [address] [place] MCHC (RBC) [Mass/Vol] 29.1 g/dL Low 30.5-36.0 [facility] Comment on above: Order Comment: Speci men Type: BLOOD SPECIMENOrdering Facility: [facility] Address: [address] [place] [address] Performed By: #### 5 8410-2 ####[facility]ATORYCLIA [id number] [place] [address] [place] MCV (RBC) [Entitic vol] 74.8 fL Low 80.0-100.0 [facility] Comment on above: Order Comment: Speci men Type: BLOOD SPECIMENOrdering Facility: [facility] Address: [address] [address] Performed By: #### 5 8410-2 ####[facility]ATORYCLIA [id number] [address] [place] Nucleated RBC (Bld) [#/Vol] 10*3/uL Normal <0.01 [facility] Comment on above: Order Comment: Speci men Type: BLOOD SPECIMENOrdering Facility: [facility] Address: [address] [place] [address] Performed By: #### 5 8410-2 ####[facility]ATORYCLIA [id number] [address] [place] Platelet mean volume (Bld) [Entitic vol] 9.8 fL Normal 9.0-12.7 [facility] Comment on above: Order Comment: Speci men Type: BLOOD SPECIMENOrdering Facility: [facility] Address: [address] [address] Performed By: #### 5 8410-2 ####[facility]ATORYCLIA [id number] [address] [place] Platelets (Bld) [#/Vol] 207 10*3/uL Normal 150-400 [facility] Comment on above: Order Comment: Speci men Type: BLOOD SPECIMENOrdering Facility: [facility] Address: [address] [address] Performed By: #### 5 8410-2 ####[facility]ATORYCLIA [id number] [address] [place] RBC (Bld) [#/Vol] 4.96 10*6/uL Normal 3.90-5.20 [facility] Comment on above: Order Comment: Speci men Type: BLOOD SPECIMENOrdering Facility: [facility] Address: [address] [place] [address] Performed By: #### 5 8410-2 ####[facility]ATORYCLIA [id number] [place] [address] [place] [facility] WBC (Bld) [#/Vol] 11.88 10*3/uL High 3.70-11.00 [facility] Comment on above: Order Comment: Speci men Type: BLOOD SPECIMENOrdering Facility: [facility] Address: [address] [place] [address] Performed By: #### 5 8410-2 ####[facility]ATORYCLIA [id number] [address] [place] Calcium.ionized [Moles/Vol]o n 01-21-2023 Calcium.ionized (BldV) [Mass/Vol] 1.14 mmol/L Normal 1.08-1.30 [facility] Comment on above: Order Comment: Speci men Type: BLOOD SPECIMENOrdering Facility: [facility] Address: [address] [place] [address] Performed By: #### 1 995-0 ####[facility]ATORYCLIA [id number] [address] STATES OF [facility] Calcium.ionized adjusted to pH 7.4 (Bld) [Moles/Vol] 1.09 mmol/L Normal 1.08-1.30 [facility] Comment on above: Order Comment: Speci men Type: BLOOD SPECIMENOrdering Facility: [facility] Address: [address] [place] [address] Performed By: #### 1 995-0 ####[facility]ATORYCLIA [id number] [address] [place] Magnesium SerPl-mCncon 01-21 Magnesium [Mass/Vol] 2.1 mg/dL Normal 1.7-2.3 [facility] Comment on above: Order Comment: Speci men Type: BLOOD SPECIMENOrdering Facility: [facility] Address: [address] [place] [address] Performed By: #### 2 4321-2, 96714-72776-04 ####[facility]ATORYCLIA [id number] [place] [address] [place] NURSING PROGon 01-21-2023 NURSING PROG Normal [facility] Phosphate SerPl-mCncon 01-21 Phosphate [Mass/Vol] 3.4 mg/dL Normal 2.7-4.8 [facility] Comment on above: Order Comment: Speci men Type: BLOOD SPECIMENOrdering Facility: [facility] Address: [address] [address] Performed By: #### 2 4321-2, , 2776-04 ####[facility]ATORYCLIA [id number] [address] OF [facility] XR CHEST 1V FRONTALon 2022 XR CHEST 1V FRONTAL Normal [facility] ALLIED HEALTHon 01-20-2023 ALLIED HEALTH Normal [facility] Basic metabolic 2000 panelon 01-20-2023 Anion gap [Moles/Vol] 6 mmol/L Low 9-18 [facility] Comment on above: Order Comment: Speci men Type: BLOOD SPECIMENOrdering Facility: [facility] Address: [address] [place] [address] Performed By: #### 2 4321-2, , 2776-04 ####[facility]ATORYCLIA [id number] [place] [address] [place] Calcium [Mass/Vol] 8.7 mg/dL Normal 8.5-10.2 [facility] Comment on above: Order Comment: Speci men Type: BLOOD SPECIMENOrdering Facility: [facility] Address: [address] [place] [address] Performed By: #### 2 4321-2, , 2776-04 ####[facility]ATORYCLIA [id number] [place] [address] [place] Chloride [Moles/Vol] 95 mmol/L Low 97-105 [facility] Comment on above: Order Comment: Speci men Type: BLOOD SPECIMENOrdering Facility: [facility] Address: [address] [place] [address] Performed By: #### 2 4321-2, , 2776-04 ####[facility]ITALCLIA [id number] [address] CO2 [Moles/Vol] 34 mmol/L High 22-30 [facility] Comment on above: Order Comment: Speci men Type: BLOOD SPECIMENOrdering Facility: [facility] Address: [address] [place] [address] Performed By: #### 2 4321-2, , 2776-04 ####[facility]PITALIA [id number] [address] Creatinine [Mass/Vol] 0.60 mg/dL Normal 0.58-0.96 [facility] Comment on above: Order Comment: Speci men Type: BLOOD SPECIMENOrdering Facility: [facility] Address: [address] [place] [address] Performed By: #### 2 4321-2, , 2776-04 ####[facility] HOSPITALIA [id number] [address] Creatinine and Glomerular filtration rate.predicted panel (S/P/Bld) 104 mL/min/1.73m??? Normal >=60 [facility] Comment on above: Order Comment: Speci men Type: BLOOD SPECIMENOrdering Facility: [facility] Address: [address] [place] [address] Result Comment: Leslie mated Glomerular Filtration Rate (eGFR) is calculated using the 2020 CKD-EPI creatinine equation. This equation utilizes serum creatinine, sex, and age as parameters. The creatinine assay has traceable calibration to isotope dilution-mass spectrometry. Refer to KDIGO guidelines for clinical interpretation. In patients with unstable renal function, e.g. those with acute kidney injury, the eGFR may not accurately reflect actual GFR. Performed By: #### 2 4321-2, , 2776-04 ####[facility] HOSPITALIA [id number] [place] [address] [place] Glucose [Mass/Vol] 126 mg/dL High 74-99 [facility] Comment on above: Order Comment: Speci men Type: BLOOD SPECIMENOrdering Facility: [facility] Address: [address] [place], [place] [address] Result Comment: The [place] Diabetes [employer] (ADA) provides guidance for cutoff values for fasting glucose and random glucose. The ADA defines fasting as no caloric intake for at least 8 hours. Fasting plasma glucose results between 100 to 125 mg/dL indicate increased risk for diabetes (prediabetes).Fasting plasma glucose results greater than or equal to 126 mg/dL meet the criteria for diagnosis of diabetes. In the absence of unequivocal hyperglycemia, results should be confirmed by repeat testing. In a patient with classic symptoms of hyperglycemia or hyperglycemic crisis, random plasma glucose results greater than or equal to 200 mg/dL meet the criteria for diagnosis of diabetes.Reference: Standards of Medical Care in Diabetes 2016, [employer] Diabetes Association. Diabetes Care. 2016.39(Suppl 1). Performed By: #### 2 4321-2, , 2776-04 ####[facility]ORATORYCLIA [id number] [place] [address] [place] Potassium [Moles/Vol] 4.2 mmol/L Normal 3.7-5.1 [facility] Comment on above: Order Comment: Jadon griggs Type: BLOOD SPECIMENOrdering Facility: [facility] Address: [address] [place], [place] [address] Performed By: #### 2 4321-2, , 2776-04 ####[facility]ATORYCLIA [id number] [place] [address] [place] Sodium [Moles/Vol] 135 mmol/L Low 136-144 [facility] Comment on above: Order Comment: Juan Carlosi men Type: BLOOD SPECIMENOrdering Facility: [facility] Address: [address] [place], [place] [address] Performed By: #### 2 4321-2, , 2776-04 ####[facility]ATORYCLIA [id number] [address] STATES OF [facility] Urea nitrogen [Mass/Vol] 15 mg/dL Normal 7-21 [facility] Comment on above: Order Comment: Speci men Type: BLOOD SPECIMENOrdering Facility: [facility] Address: [address] [place] [address] Performed By: #### 2 4321-2, 57021-7, 2777-1 ####[facility]ATORYCLIA [id number] [address] STATES OF [facility] CBC panel Auto (Bld)on 01-20 Erythrocyte distribution width (RBC) [Ratio] 23.8 % High 11.5-15.0 [facility] Comment on above: Order Comment: Speci men Type: BLOOD SPECIMENOrdering Facility: [facility] Address: [address] [place] [address] Performed By: #### 5 8410-2 ####[facility]ATORYCLIA [id number] [address] STATES OF [facility] Hematocrit (Bld) [Volume fraction] 37.4 % Normal 36.0-46.0 [facility] Comment on above: Order Comment: Speci men Type: BLOOD SPECIMENOrdering Facility: [facility] Address: [address] [place] [address] Performed By: #### 5 8410-2 ####[facility]ATORYCLIA [id number] [address] [place] Hemoglobin (Bld) [Mass/Vol] 10.7 g/dL Low 11.5-15.5 [facility] Comment on above: Order Comment: Speci men Type: BLOOD SPECIMENOrdering Facility: [facility] Address: [address] [place] [address] Performed By: #### 5 8410-2 ####[facility]ATORYCLIA [id number] [address] [place] MCH (RBC) [Entitic mass] 21.1 pg Low 26.0-34.0 [facility] Comment on above: Order Comment: Speci men Type: BLOOD SPECIMENOrdering Facility: [facility] Address: [address] [place] [address] Performed By: #### 5 8410-2 ####[facility]ATORYCLIA [id number] [address] MCHC (RBC) [Mass/Vol] 28.6 g/dL Low 30.5-36.0 [facility] Comment on above: Order Comment: Speci men Type: BLOOD SPECIMENOrdering Facility: [facility] Address: [address] [place] [address] Performed By: #### 5 8410-2 ####[facility]ATORYCLIA [id number] [address] MCV (RBC) [Entitic vol] 73.9 fL Low 80.0-100.0 [facility] Comment on above: Order Comment: Speci men Type: BLOOD SPECIMENOrdering Facility: [facility] Address: [address] [place] [address] Performed By: #### 5 8410-2 ####[facility]ITALCLIA [id number] [address] Nucleated RBC (Bld) [#/Vol] 0.02 10*3/uL High <0.01 [facility] Comment on above: Order Comment: Speci men Type: BLOOD SPECIMENOrdering Facility: [facility] Address: [address] [place] [address] Performed By: #### 5 8410-2 ####[facility]ATORYCLIA [id number] [address] Platelet mean volume (Bld) [Entitic vol] 9.6 fL Normal 9.0-12.7 [facility] Comment on above: Order Comment: Speci men Type: BLOOD SPECIMENOrdering Facility: [facility] Address: [address] [place] [address] Performed By: #### 5 8410-2 ####[facility]ATORYCLIA [id number] [address] OF [facility] Platelets (Bld) [#/Vol] 206 10*3/uL Normal 150-400 [facility] Comment on above: Order Comment: Speci men Type: BLOOD SPECIMENOrdering Facility: [facility] Address: [address] [place] [address] Performed By: #### 5 8410-2 ####[facility]ATORYCLIA [id number] [place] [address] [place] RBC (Bld) [#/Vol] 5.06 10*6/uL Normal 3.90-5.20 [facility] Comment on above: Order Comment: Speci men Type: BLOOD SPECIMENOrdering Facility: [facility] Address: [address] [place] [address] Performed By: #### 5 8410-2 ####[facility]ATORYCLIA [id number] [address] STATES OF [facility] WBC (Bld) [#/Vol] 14.24 10*3/uL High 3.70-11.00 [facility] Comment on above: Order Comment: Speci men Type: BLOOD SPECIMENOrdering Facility: [facility] Address: [address] [place] [address] Performed By: #### 5 8410-2 ####[facility]ATORYCLIA [id number] [address] [place] CONSULT PROGon 01-20-2023 CONSULT PROG Normal [facility] CONSULT PROG Normal [facility] Calcium.ionized [Moles/Vol]o n 01-20-2023 Calcium.ionized (BldV) [Mass/Vol] 1.15 mmol/L Normal 1.08-1.30 [facility] Comment on above: Order Comment: Speci men Type: BLOOD SPECIMENOrdering Facility: [facility] Address: [address] [place] [address] Performed By: #### 1 995-0 ####[facility]ATORYCLIA [id number] [place] [address] [place] Calcium.ionized adjusted to pH 7.4 (Bld) [Moles/Vol] 1.08 mmol/L Normal 1.08-1.30 [facility] Comment on above: Order Comment: Speci men Type: BLOOD SPECIMENOrdering Facility: [facility] Address: [address] [place] [address] Performed By: #### 1 995-0 ####[facility]ATORYCLIA [id number] [place] [address] [place] ECG COMPLETEon 01-20-2023 ECG COMPLETE Normal [facility] Magnesium SerPl-ncon 01-20 Magnesium [Mass/Vol] 1.9 mg/dL Normal 1.7-2.3 [facility] Comment on above: Order Comment: Speci men Type: BLOOD SPECIMENOrdering Facility: [facility] Address: [address] [place] [address] Performed By: #### 2 4321-2, , 27710-21 ####[facility]ATORYCLIA [id number] [address] [place] Phosphate SerPl-ncon 01-20 Phosphate [Mass/Vol] 3.2 mg/dL Normal 2.7-4.8 [facility] Comment on above: Order Comment: Speci men Type: BLOOD SPECIMENOrdering Facility: [facility] Address: [address] [place] [address] Performed By: #### 2 4321-2, , 27710-21 ####[facility]ATORYCLIA [id number] [place] [address] [place] XR CHEST 1V FRONTALon 2022 XR CHEST 1V FRONTAL Normal [facility] ALLIED HEALTHon 01-19-2023 ALLIED HEALTH Normal [facility] ANES POSTPROC EVALon 023 ANES POSTPROC EVAL Normal [facility] ARTERIAL BLOOD GASESon 01-19 Base excess Calc (Bld) [Moles/Vol] 9 mmol/L High 0-2 [facility] Comment on above: Order Comment: Speci men Type: ARTERIAL BLOOD SPECIMENOrdering Facility: [facility] Address: [address] [place] [address] Performed By: #### A LLBG ####[facility]ATORYCLIA [id number] [address] Body temperature 97.88 [degF] Normal [facility] Comment on above: Order Comment: Speci men Type: ARTERIAL BLOOD SPECIMENOrdering Facility: [facility] Address: [address] [place] [address] Performed By: #### A LLBG ####[facility]ATORYCLIA [id number] [address] OF [facility] Calcium.ionized (BldV) [Mass/Vol] 1.06 mmol/L Low 1.08-1.30 [facility] Comment on above: Order Comment: Speci men Type: ARTERIAL BLOOD SPECIMENOrdering Facility: [facility] Address: [address] [place] [address] Performed By: #### A LLBG ####[facility]ATORYCLIA [id number] [address] Calcium.ionized adjusted to pH 7.4 (BldA) [Moles/Vol] 1.07 mmol/L Low 1.08-1.30 [facility] Comment on above: Order Comment: Speci men Type: ARTERIAL BLOOD SPECIMENOrdering Facility: [facility] Address: [address] [place] [address] Performed By: #### A LLBG ####[facility]ATORYCLIA [id number] [address] [place] Carboxyhemoglobin (BldA) [Mass fraction] 2.9 % High 0.0-2.0 [facility] Comment on above: Order Comment: Speci men Type: ARTERIAL BLOOD SPECIMENOrdering Facility: [facility] Address: [address] [place] [address] Result Comment: Carb oxyhemoglobin Reference Range for Smokers: 2.0-8.0% Performed By: #### A LLBG ####[facility]ATORYCLIA [id number] [address] [place] Chloride [Moles/Vol] 91 mmol/L Low 102-109 [facility] Comment on above: Order Comment: Speci men Type: ARTERIAL BLOOD SPECIMENOrdering Facility: [facility] Address: [address] [place] [address] Performed By: #### A LLBG ####[facility]ORYCLIA [id number] [address] CO2 (Bld) [Partial pressure] 55 mm Hg High 36-46 [facility] Comment on above: Order Comment: Speci men Type: ARTERIAL BLOOD SPECIMENOrdering Facility: [facility] Address: [address] [place] [address] Performed By: #### A LLBG ####[facility]ATORYCLIA [id number] [address] CO2 adjusted to patient's actual temperature (Bld) [Partial pressure] 54 mmHg High 36-46 [facility] Comment on above: Order Comment: Speci men Type: ARTERIAL BLOOD SPECIMENOrdering Facility: [facility] Address: [address] [place] [address] Performed By: #### A LLBG ####[facility]ORYCLIA [id number] [address] [place] FIO2 50 % Normal [facility] Comment on above: Order Comment: Speci men Type: ARTERIAL BLOOD SPECIMENOrdering Facility: [facility] Address: [address] [place] [address] Performed By: #### A LLBG ####[facility]ORYCLIA [id number] [address] [place] Glucose [Mass/Vol] 133 mg/dL High 60-105 [facility] Comment on above: Order Comment: Speci men Type: ARTERIAL BLOOD SPECIMENOrdering Facility: [facility] Address: [address] [place] [address] Performed By: #### A LLBG ####[facility]ORYCLIA [id number] [address] [place] HCO3 (Bld) [Moles/Vol] 34 mmol/L High 22-26 [facility] Comment on above: Order Comment: Speci men Type: ARTERIAL BLOOD SPECIMENOrdering Facility: [facility] Address: [address] [place] [address] Performed By: #### A LLBG ####[facility]ORYCLIA [id number] [address] [place] Hematocrit (Bld) [Volume fraction] 32.3 % Low 36.0-46.0 [facility] Comment on above: Order Comment: Speci men Type: ARTERIAL BLOOD SPECIMENOrdering Facility: [facility] Address: [address] [place] [address] Performed By: #### A LLBG ####[facility]ATORYCLIA [id number] [address] [place] Hemoglobin (Bld) [Mass/Vol] 10.5 g/dL Low 11.5-15.5 [facility] Comment on above: Order Comment: Speci men Type: ARTERIAL BLOOD SPECIMENOrdering Facility: [facility] Address: [address] [place] [address] Performed By: #### A LLBG ####[facility]ATORYCLIA [id number] [address] INHALED TIDAL VOLUME (ML) 400 Normal [facility] Comment on above: Order Comment: Speci men Type: ARTERIAL BLOOD SPECIMENOrdering Facility: [facility] Address: [address] [place] [address] Performed By: #### A LLBG ####[facility]ORYCLIA [id number] [address] [place] Lactate [Moles/Vol] 1.3 mmol/L Normal 0.5-2.2 [facility] Comment on above: Order Comment: Speci men Type: ARTERIAL BLOOD SPECIMENOrdering Facility: [facility] Address: [address] [place] [address] Performed By: #### A LLBG ####[facility]ORYCLIA [id number] [address] Methemoglobin (Bld) [Mass fraction] 0.8 % Normal 0.0-1.5 [facility] Comment on above: Order Comment: Speci men Type: ARTERIAL BLOOD SPECIMENOrdering Facility: [facility] Address: [address] [place] [address] Performed By: #### A LLBG ####[facility]ORYCLIA [id number] [address] O2 THERAPY Ventilator Normal [facility] Comment on above: Order Comment: Speci men Type: ARTERIAL BLOOD SPECIMENOrdering Facility: [facility] Address: [address] [place] [address] Performed By: #### A LLBG ####[facility]ORYCLIA [id number] [address] Oxygen (Bld) [Partial pressure] 56 mm Hg Low 85-95 [facility] Comment on above: Order Comment: Speci men Type: ARTERIAL BLOOD SPECIMENOrdering Facility: [facility] Address: [address] [place] [address] Performed By: #### A LLBG ####[facility]ORYCLIA [id number] [address] Oxygen adjusted to patient's actual temperature (Bld) [Partial pressure] 55 mmHg Low 85-95 [facility] Comment on above: Order Comment: Speci men Type: ARTERIAL BLOOD SPECIMENOrdering Facility: [facility] Address: [address] [address] Performed By: #### A LLBG ####[facility]ORYCLIA [id number] [address] Oxyhemoglobin (BldA) [Mass fraction] 85 % Low 95-98 [facility] Comment on above: Order Comment: Speci men Type: ARTERIAL BLOOD SPECIMENOrdering Facility: [facility] Address: [address] [address] Performed By: #### A LLBG ####[facility]ORYCLIA [id number] [address] PEEP/CPAP 5 cmH2O Normal [facility] Comment on above: Order Comment: Speci men Type: ARTERIAL BLOOD SPECIMENOrdering Facility: [facility] Address: [address] [place] [address] Performed By: #### A LLBG ####[facility]ATORYCLIA [id number] [address] [place] pH (Bld) 7.41 [pH] Normal 7.35-7.45 [facility] Comment on above: Order Comment: Speci men Type: ARTERIAL BLOOD SPECIMENOrdering Facility: [facility] Address: [address] [place] [address] Performed By: #### A LLBG ####[facility]ATORYCLIA [id number] [address] pH adjusted to patient's actual temperature (Bld) 7.42 Normal 7.35-7.45 [facility] Comment on above: Order Comment: Speci men Type: ARTERIAL BLOOD SPECIMENOrdering Facility: [facility] Address: [address] [place] [address] Performed By: #### A LLBG ####[facility]ATORYCLIA [id number] [address] PO2 / FIO2 RATIO 112 mmHg Low >300 [facility] Comment on above: Order Comment: Speci men Type: ARTERIAL BLOOD SPECIMENOrdering Facility: [facility] Address: [address] [place] [address] Performed By: #### A LLBG ####[facility]ATORYCLIA [id number] [address] Potassium [Moles/Vol] 3.4 mmol/L Low 3.5-5.0 [facility] Comment on above: Order Comment: Speci men Type: ARTERIAL BLOOD SPECIMENOrdering Facility: [facility] Address: [address] [address] Performed By: #### A LLBG ####[facility]ORATORYCLIA [id number] [place] [address] [place] Sodium [Moles/Vol] 129 mmol/L Low 136-144 [facility] Comment on above: Order Comment: Speci men Type: ARTERIAL BLOOD SPECIMENOrdering Facility: [facility] Address: [address] [address] Performed By: #### A LLBG ####[facility]ATORYCLIA [id number] [place] [address] [place] Basic metabolic 2000 panelon 01-19-2023 Anion gap [Moles/Vol] 9 mmol/L Normal 9-18 [facility] Comment on above: Order Comment: Speci men Type: BLOOD SPECIMENOrdering Facility: [facility] Address: [address] [address] Performed By: #### 2 4321-2, , 2776-04 ####[facility]ATORYCLIA [id number] [place] [address] [place] Calcium [Mass/Vol] 8.2 mg/dL Low 8.5-10.2 [facility] Comment on above: Order Comment: Speci men Type: BLOOD SPECIMENOrdering Facility: [facility] Address: [address] [address] Performed By: #### 2 4321-2, , 2776-04 ####[facility]ATORYCLIA [id number] [place] [address] [place] Chloride [Moles/Vol] 90 mmol/L Low 97-105 [facility] Comment on above: Order Comment: Speci men Type: BLOOD SPECIMENOrdering Facility: [facility] Address: [address] [address] Performed By: #### 2 4321-2, , 2776-04 ####[facility]ATORYCLIA [id number] [place] [address] [place] CO2 [Moles/Vol] 33 mmol/L High 22-30 [facility] Comment on above: Order Comment: Jadon griggs Type: BLOOD SPECIMENOrdering Facility: [facility] Address: [address] [place] [address] Performed By: #### 2 4321-2, , 2776-04 ####[facility]ATORYCLIA [id number] [address] [place] Creatinine [Mass/Vol] 0.58 mg/dL Normal 0.58-0.96 [facility] Comment on above: Order Comment: Specalka griggs Type: BLOOD SPECIMENOrdering Facility: [facility] Address: [address] [place] [address] Performed By: #### 2 4321-2, , 2776-04 ####[facility]ITALIA [id number] [address] Creatinine and Glomerular filtration rate.predicted panel (S/P/Bld) 104 mL/min/1.73m??? Normal >=60 [facility] Comment on above: Order Comment: Jadon griggs Type: BLOOD SPECIMENOrdering Facility: [facility] Address: [address] [place] [address] Result Comment: Leslie mated Glomerular Filtration Rate (eGFR) is calculated using the 2020 CKD-EPI creatinine equation. This equation utilizes serum creatinine, sex, and age as parameters. The creatinine assay has traceable calibration to isotope dilution-mass spectrometry. Refer to KDIGO guidelines for clinical interpretation. In patients with unstable renal function, e.g. those with acute kidney injury, the eGFR may not accurately reflect actual GFR. Performed By: #### 2 4321-2, , 2776-04 ####[facility]ATORYCLIA [id number] [place] [address] [place] Glucose [Mass/Vol] 132 mg/dL High 74-99 [facility] Comment on above: Order Comment: Jadon griggs Type: BLOOD SPECIMENOrdering Facility: [facility] Address: [address] [place] [address] Result Comment: The [place] Diabetes [employer] (ADA) provides guidance for cutoff values for fasting glucose and random glucose. The ADA defines fasting as no caloric intake for at least 8 hours. Fasting plasma glucose results between 100 to 125 mg/dL indicate increased risk for diabetes (prediabetes).Fasting plasma glucose results greater than or equal to 126 mg/dL meet the criteria for diagnosis of diabetes. In the absence of unequivocal hyperglycemia, results should be confirmed by repeat testing. In a patient with classic symptoms of hyperglycemia or hyperglycemic crisis, random plasma glucose results greater than or equal to 200 mg/dL meet the criteria for diagnosis of diabetes.Reference: Standards of Medical Care in Diabetes 2016, [employer] Diabetes Association. Diabetes Care. 2016.39(Suppl 1). Performed By: #### 2 4321-2, , 2776-04 ####[facility]ATORYCLIA [id number] [place] [address] [place] Potassium [Moles/Vol] 3.5 mmol/L Low 3.7-5.1 [facility] Comment on above: Order Comment: Speci men Type: BLOOD SPECIMENOrdering Facility: [facility] Address: [address] [place] [address] Performed By: #### 2 432-2, , 2776-04 ####[facility]ATORYCLIA [id number] [place] [address] [place] Sodium [Moles/Vol] 132 mmol/L Low 136-144 [facility] Comment on above: Order Comment: Speci men Type: BLOOD SPECIMENOrdering Facility: [facility] Address: [address] [place], [place] [address] Performed By: #### 2 4321-2, , 2776-04 ####[facility]ATORYCLIA [id number] [place] [address] [place] Urea nitrogen [Mass/Vol] 15 mg/dL Normal 7-21 [facility] Comment on above: Order Comment: Speci men Type: BLOOD SPECIMENOrdering Facility: [facility] Address: [address] Performed By: #### 2 4321-2, 45442-5, 2777-1 ####[facility]ORATORYCLIA [id number] [address] [place] CASE MGT INIT ASSESon 2022 CASE MGT INIT ASSES Normal [facility] CBC panel Auto (Bld)on 01-19 Erythrocyte distribution width (RBC) [Ratio] 23.2 % High 11.5-15.0 [facility] Comment on above: Order Comment: Speci men Type: BLOOD SPECIMENOrdering Facility: [facility] Address: [address] [place] [address] Performed By: #### 5 8410-2 ####[facility]ORATORYCLIA [id number] [address] STATES [facility] Hematocrit (Bld) [Volume fraction] 35.0 % Low 36.0-46.0 [facility] Comment on above: Order Comment: Speci men Type: BLOOD SPECIMENOrdering Facility: [facility] Address: [address] [place] [address] Performed By: #### 5 8410-2 ####[facility]ORATORYCLIA [id number] [address] [place] Hemoglobin (Bld) [Mass/Vol] 10.1 g/dL Low 11.5-15.5 [facility] Comment on above: Order Comment: Speci men Type: BLOOD SPECIMENOrdering Facility: [facility] Address: [address] [address] Performed By: #### 5 8410-2 ####[facility]ORATORYCLIA [id number] [address] [place] MCH (RBC) [Entitic mass] 21.0 pg Low 26.0-34.0 [facility] Comment on above: Order Comment: Speci men Type: BLOOD SPECIMENOrdering Facility: [facility] Address: [address] [place] [address] Performed By: #### 5 8410-2 ####[facility]ATORYCLIA [id number] [address] [place] MCHC (RBC) [Mass/Vol] 28.9 g/dL Low 30.5-36.0 [facility] Comment on above: Order Comment: Speci men Type: BLOOD SPECIMENOrdering Facility: [facility] Address: [address] [place] [address] Performed By: #### 5 8410-2 ####[facility]ATORYCLIA [id number] [address] [place] MCV (RBC) [Entitic vol] 72.6 fL Low 80.0-100.0 [facility] Comment on above: Order Comment: Speci men Type: BLOOD SPECIMENOrdering Facility: [facility] Address: [address] [place] [address] Performed By: #### 5 8410-2 ####[facility]ATORYCLIA [id number] [address] STATES OF [facility] Nucleated RBC (Bld) [#/Vol] 0.02 10*3/uL High <0.01 [facility] Comment on above: Order Comment: Speci men Type: BLOOD SPECIMENOrdering Facility: [facility] Address: [address] [place] [address] Performed By: #### 5 8410-2 ####[facility]ATORYCLIA [id number] [address] [place] Platelet mean volume (Bld) [Entitic vol] 9.8 fL Normal 9.0-12.7 [facility] Comment on above: Order Comment: Speci men Type: BLOOD SPECIMENOrdering Facility: [facility] Address: [address] [place] [address] Performed By: #### 5 8410-2 ####[facility]ATORYCLIA [id number] [address] [place] Platelets (Bld) [#/Vol] 191 10*3/uL Normal 150-400 [facility] Comment on above: Order Comment: Speci men Type: BLOOD SPECIMENOrdering Facility: [facility] Address: [address] [place] [address] Result Comment: No c lot detected. Performed By: #### 5 8410-2 ####[facility] LABORATORYCLIA [id number] [address] RBC (Bld) [#/Vol] 4.82 10*6/uL Normal 3.90-5.20 [facility] Comment on above: Order Comment: Speci men Type: BLOOD SPECIMENOrdering Facility: [facility] Address: [address] [place] [address] Performed By: #### 5 8410-2 ####[facility]ATORYCLIA [id number] [address] WBC (Bld) [#/Vol] 17.35 10*3/uL High 3.70-11.00 [facility] Comment on above: Order Comment: Speci men Type: BLOOD SPECIMENOrdering Facility: [facility] Address: [address] [place] [address] Performed By: #### 5 8410-2 ####[facility]ATORYCLIA [id number] [address] CONSULT PROGon 01-19-2023 CONSULT PROG Normal [facility] CONSULT PROG Normal [facility] CONSULT PROG Normal [facility] CONSULT PROG Normal [facility] CONSULT PROG Normal [facility] Magnesium SerPl-mCncon 01-19 Magnesium [Mass/Vol] 1.4 mg/dL Low 1.7-2.3 [facility] Comment on above: Order Comment: Speci men Type: BLOOD SPECIMENOrdering Facility: [facility] Address: [address] [place] [address] Performed By: #### 2 4321-2, 45769-5, 2777-1 ####[facility]ATORYCLIA [id number] [address] NURSING PROGon 01-19-2023 NURSING PROG Normal [facility] Phosphate SerPl-mCncon 01-19 Phosphate [Mass/Vol] 3.0 mg/dL Normal 2.7-4.8 [facility] Comment on above: Order Comment: Speci men Type: BLOOD SPECIMENOrdering Facility: [facility] Address: [address] [place] [address] Performed By: #### 2 4321-2, 76288-5, 2777-1 ####[facility]ATORYCLIA [id number] [address] THERAPY NTon 01-19-2023 THERAPY NT Normal [facility] THERAPY NT Normal [facility] Vancomycin random [Mass/Vol] on 01-19-2023 Vancomycin [Mass/Vol] 10.4 ug/mL Normal 10.0-20.0 [facility] Comment on above: Order Comment: Speci men Type: BLOOD SPECIMENOrdering Facility: [facility] Address: [address] [place] [address] Result Comment: Refe rence ranges and high/low indicator flags are provided as general guidelines only. The treating physician must determine appropriate target levels/dosing based on the specific clinical situation. Performed By: #### 4 091-5 ####[facility]ATORYCLIA [id number] [address] [place] XR CHEST 1V FRONTALon 2022 XR CHEST 1V FRONTAL Normal [facility] ANES PRE-OPon 01-18-2023 ANES PRE-OP Normal [facility] ARTERIAL BLOOD GASESon 01-18 Base excess Calc (Bld) [Moles/Vol] 9 mmol/L High 0-2 [facility] Comment on above: Order Comment: Speci men Type: ARTERIAL BLOOD SPECIMENOrdering Facility: [facility] Address: [address] [place] [address] Performed By: #### A LLBG ####[facility]ATORYCLIA [id number] [address] [place] Body temperature 97.88 [degF] Normal [facility] Comment on above: Order Comment: Speci men Type: ARTERIAL BLOOD SPECIMENOrdering Facility: [facility] Address: [address] [place] [address] Performed By: #### A LLBG ####[facility]ATORYCLIA [id number] [address] Calcium.ionized (BldV) [Mass/Vol] 1.09 mmol/L Normal 1.08-1.30 [facility] Comment on above: Order Comment: Speci men Type: ARTERIAL BLOOD SPECIMENOrdering Facility: [facility] Address: [address] [place] [address] Performed By: #### A LLBG ####[facility]ATORYCLIA [id number] [address] Calcium.ionized adjusted to pH 7.4 (BldA) [Moles/Vol] 1.07 mmol/L Low 1.08-1.30 [facility] Comment on above: Order Comment: Speci men Type: ARTERIAL BLOOD SPECIMENOrdering Facility: [facility] Address: [address] [place] [address] Performed By: #### A LLBG ####[facility]ORATORYCLIA [id number] [address] [place] Carboxyhemoglobin (BldA) [Mass fraction] 3.0 % High 0.0-2.0 [facility] Comment on above: Order Comment: Speci men Type: ARTERIAL BLOOD SPECIMENOrdering Facility: [facility] Address: [address] [place] [address] Result Comment: Carb oxyhemoglobin Reference Range for Smokers: 2.0-8.0% Performed By: #### A LLBG ####[facility]ORATORYCLIA [id number] [address] OF [facility] Chloride [Moles/Vol] 91 mmol/L Low 102-109 [facility] Comment on above: Order Comment: Speci men Type: ARTERIAL BLOOD SPECIMENOrdering Facility: [facility] Address: [address] [place] [address] Performed By: #### A LLBG ####[facility]ATORYCLIA [id number] [address] CO2 (Bld) [Partial pressure] 64 mm Hg High 36-46 [facility] Comment on above: Order Comment: Speci men Type: ARTERIAL BLOOD SPECIMENOrdering Facility: [facility] Address: [address] [place] [address] Performed By: #### A LLBG ####[facility]ATORYCLIA [id number] [address] CO2 adjusted to patient's actual temperature (Bld) [Partial pressure] 63 mmHg High 3646 [facility] Comment on above: Order Comment: Speci men Type: ARTERIAL BLOOD SPECIMENOrdering Facility: [facility] Address: [address] [place] [address] Performed By: #### A LLBG ####[facility]ATORYCLIA [id number] [address] [place] FIO2 50 % Normal [facility] Comment on above: Order Comment: Speci men Type: ARTERIAL BLOOD SPECIMENOrdering Facility: [facility] Address: [address] [place] [address] Performed By: #### A LLBG ####[facility]ATORYCLIA [id number] [address] [place] Glucose [Mass/Vol] 125 mg/dL High 60-105 [facility] Comment on above: Order Comment: Speci men Type: ARTERIAL BLOOD SPECIMENOrdering Facility: [facility] Address: [address] [address] Performed By: #### A LLBG ####[facility]ATORYCLIA [id number] [address] HCO3 (Bld) [Moles/Vol] 35 mmol/L High 22-26 [facility] Comment on above: Order Comment: Speci men Type: ARTERIAL BLOOD SPECIMENOrdering Facility: [facility] Address: [address] [place] [address] Performed By: #### A LLBG ####[facility]ATORYCLIA [id number] [address] Hematocrit (Bld) [Volume fraction] 32.7 % Low 36.0-46.0 [facility] Comment on above: Order Comment: Speci men Type: ARTERIAL BLOOD SPECIMENOrdering Facility: [facility] Address: [address] [place] [address] Performed By: #### A LLBG ####[facility]ATORYCLIA [id number] [address] [place] Hemoglobin (Bld) [Mass/Vol] 10.6 g/dL Low 11.5-15.5 [facility] Comment on above: Order Comment: Speci men Type: ARTERIAL BLOOD SPECIMENOrdering Facility: [facility] Address: [address] [place] [address] Performed By: #### A LLBG ####[facility]ATORYCLIA [id number] [address] [place] INHALED TIDAL VOLUME (ML) 400 Normal [facility] Comment on above: Order Comment: Speci men Type: ARTERIAL BLOOD SPECIMENOrdering Facility: [facility] Address: [address] [place] [address] Performed By: #### A LLBG ####[facility]ATORYCLIA [id number] [address] [place] Lactate [Moles/Vol] 1.4 mmol/L Normal 0.5-2.2 [facility] Comment on above: Order Comment: Speci men Type: ARTERIAL BLOOD SPECIMENOrdering Facility: [facility] Address: [address] [place] [address] Performed By: #### A LLBG ####[facility]ATORYCLIA [id number] [address] [place] Methemoglobin (Bld) [Mass fraction] 0.9 % Normal 0.0-1.5 [facility] Comment on above: Order Comment: Speci men Type: ARTERIAL BLOOD SPECIMENOrdering Facility: [facility] Address: [address] [address] Performed By: #### A LLBG ####[facility]ATORYCLIA [id number] [address] OF [facility] O2 THERAPY Ventilator Normal [facility] Comment on above: Order Comment: Speci men Type: ARTERIAL BLOOD SPECIMENOrdering Facility: [facility] Address: [address] [place] [address] Performed By: #### A LLBG ####[facility]ATORYCLIA [id number] [address] [place] Oxygen (Bld) [Partial pressure] 59 mm Hg Low 85-95 [facility] Comment on above: Order Comment: Speci men Type: ARTERIAL BLOOD SPECIMENOrdering Facility: [facility] Address: [address] [place] [address] Performed By: #### A LLBG ####[facility] LABORATORYCLIA [id number] [address] [place] Oxygen adjusted to patient's actual temperature (Bld) [Partial pressure] 57 mmHg Low 85-95 [facility] Comment on above: Order Comment: Speci men Type: ARTERIAL BLOOD SPECIMENOrdering Facility: [facility] Address: [address] [place] [address] Performed By: #### A LLBG ####[facility]ATORYCLIA [id number] [address] [place] Oxyhemoglobin (BldA) [Mass fraction] 87 % Low 95-98 [facility] Comment on above: Order Comment: Speci men Type: ARTERIAL BLOOD SPECIMENOrdering Facility: [facility] Address: [address] [place] [address] Performed By: #### A LLBG ####[facility]ATORYCLIA [id number] [address] [place] PEEP/CPAP 5 cmH2O Normal [facility] Comment on above: Order Comment: Speci men Type: ARTERIAL BLOOD SPECIMENOrdering Facility: [facility] Address: [address] [place] [address] Performed By: #### A LLBG ####[facility]ATORYCLIA [id number] [address] [place] pH (Bld) 7.36 [pH] Normal 7.35-7.45 [facility] Comment on above: Order Comment: Speci men Type: ARTERIAL BLOOD SPECIMENOrdering Facility: [facility] Address: [address] [place] [address] Performed By: #### A LLBG ####[facility]ATORYCLIA [id number] [address] pH adjusted to patient's actual temperature (Bld) 7.37 Normal 7.35-7.45 [facility] Comment on above: Order Comment: Speci men Type: ARTERIAL BLOOD SPECIMENOrdering Facility: [facility] Address: [address] [place] [address] Performed By: #### A LLBG ####[facility]ATORYCLIA [id number] [address] [place] PO2 / FIO2 RATIO 118 mmHg Low >300 [facility] Comment on above: Order Comment: Speci men Type: ARTERIAL BLOOD SPECIMENOrdering Facility: [facility] Address: [address] [place] [address] Performed By: #### A LLBG ####[facility]ATORYCLIA [id number] [address] [place] Potassium [Moles/Vol] 3.3 mmol/L Low 3.5-5.0 [facility] Comment on above: Order Comment: Speci men Type: ARTERIAL BLOOD SPECIMENOrdering Facility: [facility] Address: [address] [place] [address] Performed By: #### A LLBG ####[facility]ATORYCLIA [id number] [address] [place] Sodium [Moles/Vol] 130 mmol/L Low 136-144 [facility] Comment on above: Order Comment: Speci men Type: ARTERIAL BLOOD SPECIMENOrdering Facility: [facility] Address: [address] [place] [address] Performed By: #### A LLBG ####[facility]ATORYCLIA [id number] [address] Base excess Calc (Bld) [Moles/Vol] 7 mmol/L High 0-2 [facility] Comment on above: Order Comment: Speci men Type: ARTERIAL BLOOD SPECIMENOrdering Facility: [facility] Address: [address] [place] [address] Performed By: #### A LLBG ####[facility]ORATORYCLIA [id number] [address] Body temperature 98.6 [degF] Normal [facility] Comment on above: Order Comment: Speci men Type: ARTERIAL BLOOD SPECIMENOrdering Facility: [facility] Address: [address] [place] [address] Performed By: #### A LLBG ####[facility]ATORYCLIA [id number] [address] Calcium.ionized (BldV) [Mass/Vol] 1.10 mmol/L Normal 1.08-1.30 [facility] Comment on above: Order Comment: Speci men Type: ARTERIAL BLOOD SPECIMENOrdering Facility: [facility] Address: [address] [place] [address] Performed By: #### A LLBG ####[facility]ATORYCLIA [id number] [address] Calcium.ionized adjusted to pH 7.4 (BldA) [Moles/Vol] 1.04 mmol/L Low 1.08-1.30 [facility] Comment on above: Order Comment: Speci men Type: ARTERIAL BLOOD SPECIMENOrdering Facility: [facility] Address: [address] [place] [address] Performed By: #### A LLBG ####[facility]ATORYCLIA [id number] [address] OF [facility] Carboxyhemoglobin (BldA) [Mass fraction] 3.5 % High 0.0-2.0 [facility] Comment on above: Order Comment: Speci men Type: ARTERIAL BLOOD SPECIMENOrdering Facility: [facility] Address: [address] [place] [address] Result Comment: Carb oxyhemoglobin Reference Range for Smokers: 2.0-8.0% Performed By: #### A LLBG ####[facility]ATORYCLIA [id number] [address] [place] Chloride [Moles/Vol] 94 mmol/L Low 102-109 [facility] Comment on above: Order Comment: Speci men Type: ARTERIAL BLOOD SPECIMENOrdering Facility: [facility] [facility] Address: [address] [place] [address] Performed By: #### A LLBG ####[facility]ATORYCLIA [id number] [address] [place] CO2 (Bld) [Partial pressure] 72 mm Hg High 36-46 [facility] Comment on above: Order Comment: Speci men Type: ARTERIAL BLOOD SPECIMENOrdering Facility: [facility] Address: [address] [place] [address] Performed By: #### A LLBG ####[facility]ORATORYCLIA [id number] [address] [place] Glucose [Mass/Vol] 122 mg/dL High 60-105 [facility] Comment on above: Order Comment: Speci men Type: ARTERIAL BLOOD SPECIMENOrdering Facility: [facility] Address: [address] [place] [address] Performed By: #### A LLBG ####[facility]ATORYCLIA [id number] [place] [address] [place] HCO3 (Bld) [Moles/Vol] 35 mmol/L High 22-26 [facility] Comment on above: Order Comment: Speci men Type: ARTERIAL BLOOD SPECIMENOrdering Facility: [facility] Address: [address] [place] [address] Performed By: #### A LLBG ####[facility]ATORYCLIA [id number] [address] [place] Hematocrit (Bld) [Volume fraction] 33.5 % Low 36.0-46.0 [facility] Comment on above: Order Comment: Speci men Type: ARTERIAL BLOOD SPECIMENOrdering Facility: [facility] Address: [address] [place] [address] Performed By: #### A LLBG ####[facility]ORYCLIA [id number] [address] [place] Hemoglobin (Bld) [Mass/Vol] 10.8 g/dL Low 11.5-15.5 [facility] Comment on above: Order Comment: Speci men Type: ARTERIAL BLOOD SPECIMENOrdering Facility: [facility] Address: [address] [place] [address] Performed By: #### A LLBG ####[facility]ATORYCLIA [id number] [address] Lactate [Moles/Vol] 1.3 mmol/L Normal 0.5-2.2 [facility] Comment on above: Order Comment: Speci men Type: ARTERIAL BLOOD SPECIMENOrdering Facility: [facility] Address: [address] [place] [address] Performed By: #### A LLBG ####[facility]ATORYCLIA [id number] [address] Methemoglobin (Bld) [Mass fraction] 0.4 % Normal 0.0-1.5 [facility] Comment on above: Order Comment: Speci men Type: ARTERIAL BLOOD SPECIMENOrdering Facility: [facility] Address: [address] [place] [address] Performed By: #### A LLBG ####[facility]ATORYCLIA [id number] [address] [place] O2 THERAPY Ventilator Normal [facility] Comment on above: Order Comment: Speci men Type: ARTERIAL BLOOD SPECIMENOrdering Facility: [facility] Address: [address] [address] Performed By: #### A LLBG ####[facility]ATORYCLIA [id number] [place] [address] [place] Oxygen (Bld) [Partial pressure] 70 mm Hg Low 85-95 [facility] Comment on above: Order Comment: Speci men Type: ARTERIAL BLOOD SPECIMENOrdering Facility: [facility] Address: [address] [place] [address] Performed By: #### A LLBG ####[facility]ATORYCLIA [id number] [address] [place] Oxyhemoglobin (BldA) [Mass fraction] 88 % Low 95-98 [facility] Comment on above: Order Comment: Speci men Type: ARTERIAL BLOOD SPECIMENOrdering Facility: [facility] Address: [address] [place] [address] Performed By: #### A LLBG ####[facility]ATORYCLIA [id number] [place] [address] [place] pH (Bld) 7.31 [pH] Low 7.35-7.45 [facility] Comment on above: Order Comment: Speci men Type: ARTERIAL BLOOD SPECIMENOrdering Facility: [facility] Address: [address] [place] [address] Performed By: #### A LLBG ####[facility]ATORYCLIA [id number] [place] [address] [place] Potassium [Moles/Vol] 3.3 mmol/L Low 3.5-5.0 [facility] Comment on above: Order Comment: Speci men Type: ARTERIAL BLOOD SPECIMENOrdering Facility: [facility] Address: [address] [place] [address] Performed By: #### A LLBG ####[facility]ATORYCLIA [id number] [place] [address] [place] Sodium [Moles/Vol] 130 mmol/L Low 136-144 [facility] Comment on above: Order Comment: Speci men Type: ARTERIAL BLOOD SPECIMENOrdering Facility: [facility] Address: [address] [place] [address] Performed By: #### A LLBG ####[facility]ATORYCLIA [id number] [address] [place] Bacteria Spec Anaerobe Culto n 01-18-2023 Bacteria identified Anaer cx Nom (Unsp spec) CULTURE, ANAEROBE: Few mixed anaerobic felisha. No Bacteroides fragilis group isolated. No Clostridium perfringens isolated. Normal [facility] Comment on above: Performed By: #### 6 35-3, 85146-5, 74567-7 ####[facility]ATORYCLIA [id number] [address] Bacteria Tiss Culton 023 Bacteria identified Cx Nom (Tiss) Abnormal [facility] Comment on above: Performed By: #### 6 35-3, 84717-8, 04638-5 ####[facility]ATORYCLIA [id number] [place] [address] [place] Basic metabolic 2000 panelon 01-18-2023 Anion gap [Moles/Vol] 8 mmol/L Low 9-18 [facility] Comment on above: Order Comment: Speci men Type: BLOOD SPECIMENOrdering Facility: [facility] Address: [address] [address] Performed By: #### 2 4321-2, 27710-21, ####[facility]ATORYCLIA [id number] [place] [address] [place] Calcium [Mass/Vol] 8.4 mg/dL Low 8.5-10.2 [facility] Comment on above: Order Comment: Speci men Type: BLOOD SPECIMENOrdering Facility: [facility] Address: [address] [address] Performed By: #### 2 4321-2, 277-1, ####[facility]ATORYCLIA [id number] [address] [place] Chloride [Moles/Vol] 90 mmol/L Low 97-105 [facility] Comment on above: Order Comment: Speci anson Type: BLOOD SPECIMENOrdering Facility: [facility] Address: [address] [phone] Performed By: #### 2 4321-2, 2776-04, ####[facility]ORATORYCLIA [id number] [place] [address] [place] CO2 [Moles/Vol] 34 mmol/L High 22-30 [facility] Comment on above: Order Comment: Specalka griggs Type: BLOOD SPECIMENOrdering Facility: [facility] Address: [address] [place] [address] Performed By: #### 2 4321-2, 2776-04, ####[facility]ATORYCLIA [id number] [address] OF [facility] Creatinine [Mass/Vol] 0.64 mg/dL Normal 0.58-0.96 [facility] Comment on above: Order Comment: Specalka griggs Type: BLOOD SPECIMENOrdering Facility: [facility] Address: [address] [place] [address] Performed By: #### 2 4321-2, 2776-04, ####[facility]ATORYCLIA [id number] [address] Creatinine and Glomerular filtration rate.predicted panel (S/P/Bld) 102 mL/min/1.73m??? Normal >=60 [facility] Comment on above: Order Comment: Specalka griggs Type: BLOOD SPECIMENOrdering Facility: [facility] Address: [address] [place], [place] [address] Result Comment: Leslie mated Glomerular Filtration Rate (eGFR) is calculated using the 2020 CKD-EPI creatinine equation. This equation utilizes serum creatinine, sex, and age as parameters. The creatinine assay has traceable calibration to isotope dilution-mass spectrometry. Refer to KDIGO guidelines for clinical interpretation. In patients with unstable renal function, e.g. those with acute kidney injury, the eGFR may not accurately reflect actual GFR. Performed By: #### 2 4321-2, 2777, ####[facility]ATORYCLIA [id number] [place] [address] [place] Glucose [Mass/Vol] 110 mg/dL High 74-99 [facility] Comment on above: Order Comment: Speci men Type: BLOOD SPECIMENOrdering Facility: [facility] Address: [address] [place] [address] Result Comment: The [place] [employer] (ADA) provides guidance for cutoff values for fasting glucose and random glucose. The ADA defines fasting as no caloric intake for at least 8 hours. Fasting plasma glucose results between 100 to 125 mg/dL indicate increased risk for diabetes (prediabetes).Fasting plasma glucose results greater than or equal to 126 mg/dL meet the criteria for diagnosis of diabetes. In the absence of unequivocal hyperglycemia, results should be confirmed by repeat testing. In a patient with classic symptoms of hyperglycemia or hyperglycemic crisis, random plasma glucose results greater than or equal to 200 mg/dL meet the criteria for diagnosis of diabetes.Reference: Standards of Medical Care in Diabetes 2016, [employer] Diabetes Association. Diabetes Care. 2016.39(Suppl 1). Performed By: #### 2 4321-2, 2776-04, ####[facility]ATORYCLIA [id number] [place] [address] [place] Potassium [Moles/Vol] 3.6 mmol/L Low 3.7-5.1 [facility] Comment on above: Order Comment: Speci men Type: BLOOD SPECIMENOrdering Facility: [facility] Address: [address] [phone] Performed By: #### 2 4321-2, 27710-21, ####[facility]ORATORYCLIA [id number] [place] [address] [place] Sodium [Moles/Vol] 132 mmol/L Low 136-144 [facility] Comment on above: Order Comment: Juan Carlosi men Type: BLOOD SPECIMENOrdering Facility: [facility] Address: [address] [address] Performed By: #### 2 4321-2, 2776-04, ####[facility]ORATORYCLIA [id number] [address] STATES [facility] Urea nitrogen [Mass/Vol] 13 mg/dL Normal 7-21 [facility] Comment on above: Order Comment: Speci men Type: BLOOD SPECIMENOrdering Facility: [facility] Address: [address] [place] [address] Performed By: #### 2 4321-2, 2776-04, ####[facility]ATORYCLIA [id number] [address] [place] CBC W Auto Differential pane l (Bld)on 01-18-2023 Basophils (Bld) [#/Vol] 0.04 10*3/uL Normal <0.11 [facility] Comment on above: Order Comment: Speci men Type: BLOOD SPECIMENOrdering Facility: [facility] Address: [address] [place] [address] Performed By: #### 5 7021-8 ####[facility]ATORYCLIA [id number] [address] [place] Basophils/100 WBC (Bld) 0.2 % Normal [facility] Comment on above: Order Comment: Speci men Type: BLOOD SPECIMENOrdering Facility: [facility] Address: [address] [place] [address] Performed By: #### 5 7021-8 ####[facility]ATORYCLIA [id number] [address] Differential cell count method Nom (Bld) Auto Normal [facility] Comment on above: Order Comment: Speci men Type: BLOOD SPECIMENOrdering Facility: [facility] Address: [address] [place] [address] Performed By: #### 5 7021-8 ####[facility]ORATORYCLIA [id number] [address] [place] Eosinophils (Bld) [#/Vol] 0.18 10*3/uL Normal <0.46 [facility] Comment on above: Order Comment: Speci men Type: BLOOD SPECIMENOrdering Facility: [facility] Address: [address] [place] [address] Performed By: #### 5 7021-8 ####[facility]ATORYCLIA [id number] [address] [place] Eosinophils/100 WBC (Bld) 1.0 % Normal [facility] Comment on above: Order Comment: Speci men Type: BLOOD SPECIMENOrdering Facility: [facility] Address: [address] [place] [address] Performed By: #### 5 7021-8 ####[facility]ATORYCLIA [id number] [address] [place] Erythrocyte distribution width (RBC) [Ratio] 23.8 % High 11.5-15.0 [facility] Comment on above: Order Comment: Speci men Type: BLOOD SPECIMENOrdering Facility: [facility] Address: [address] [place] [address] Performed By: #### 5 7021-8 ####[facility]ATORYCLIA [id number] [address] [place] Hematocrit (Bld) [Volume fraction] 37.8 % Normal 36.0-46.0 [facility] Comment on above: Order Comment: Speci men Type: BLOOD SPECIMENOrdering Facility: [facility] Address: [address] [place] [address] Performed By: #### 5 7021-8 ####[facility]ATORYCLIA [id number] [address] [place] Hemoglobin (Bld) [Mass/Vol] 10.7 g/dL Low 11.5-15.5 [facility] Comment on above: Order Comment: Speci men Type: BLOOD SPECIMENOrdering Facility: [facility] Address: [address] [place] [address] Performed By: #### 5 7021-8 ####[facility]ATORYCLIA [id number] [address] Immature granulocytes (Bld) [#/Vol] 0.14 10*3/uL High <0.10 [facility] Comment on above: Order Comment: Speci men Type: BLOOD SPECIMENOrdering Facility: [facility] Address: [address] [place] [address] Performed By: #### 5 7021-8 ####[facility]ATORYCLIA [id number] [address] STATES [facility] Immature granulocytes/100 WBC (Bld) 0.8 % Normal [facility] Comment on above: Order Comment: Speci men Type: BLOOD SPECIMENOrdering Facility: [facility] Address: [address] [place] [address] Performed By: #### 5 7021-8 ####[facility]ATORYCLIA [id number] [address] [place] [facility] Lymphocytes (Bld) [#/Vol] 0.59 10*3/uL Low 1.00-4.00 [facility] Comment on above: Order Comment: Speci men Type: BLOOD SPECIMENOrdering Facility: [facility] Address: [address] [place] [address] Performed By: #### 5 7021-8 ####[facility]ATORYCLIA [id number] [address] Lymphocytes/100 WBC (Bld) 3.3 % Normal [facility] Comment on above: Order Comment: Speci men Type: BLOOD SPECIMENOrdering Facility: [facility] Address: [address] [place] [address] Performed By: #### 5 7021-8 ####[facility]ORATORYCLIA [id number] [address] [place] MCH (RBC) [Entitic mass] 20.9 pg Low 26.0-34.0 [facility] Comment on above: Order Comment: Speci men Type: BLOOD SPECIMENOrdering Facility: [facility] Address: [address] [place] [address] Performed By: #### 5 7021-8 ####[facility]ATORYCLIA [id number] [address] STATES [facility] MCHC (RBC) [Mass/Vol] 28.3 g/dL Low 30.5-36.0 [facility] Comment on above: Order Comment: Speci men Type: BLOOD SPECIMENOrdering Facility: [facility] Address: [address] [place] [address] Performed By: #### 5 7021-8 ####[facility]ATORYCLIA [id number] [address] [place] MCV (RBC) [Entitic vol] 73.8 fL Low 80.0-100.0 [facility] Comment on above: Order Comment: Speci men Type: BLOOD SPECIMENOrdering Facility: [facility] Address: [address] [place] [address] Performed By: #### 5 7021-8 ####[facility]ATORYCLIA [id number] [address] [place] Monocytes (Bld) [#/Vol] 0.63 10*3/uL Normal <0.87 [facility] Comment on above: Order Comment: Speci men Type: BLOOD SPECIMENOrdering Facility: [facility] Address: [address] [place] [address] Performed By: #### 5 7021-8 ####[facility]ATORYCLIA [id number] [address] Monocytes/100 WBC (Bld) 3.5 % Normal [facility] Comment on above: Order Comment: Speci men Type: BLOOD SPECIMENOrdering Facility: [facility] Address: [address] [place] [address] Performed By: #### 5 7021-8 ####[facility]ATORYCLIA [id number] [address] [place] Neutrophils (Bld) [#/Vol] 16.47 10*3/uL High 1.45-7.50 [facility] Comment on above: Order Comment: Speci men Type: BLOOD SPECIMENOrdering Facility: [facility] Address: [address] [place] [address] Performed By: #### 5 7021-8 ####[facility]ATORYCLIA [id number] [address] Neutrophils/100 WBC (Bld) 91.2 % Normal [facility] Comment on above: Order Comment: Speci men Type: BLOOD SPECIMENOrdering Facility: [facility] Address: [address] [place] [address] Performed By: #### 5 7021-8 ####[facility]ATORYCLIA [id number] [address] [place] Nucleated RBC (Bld) [#/Vol] 0.02 10*3/uL High <0.01 [facility] Comment on above: Order Comment: Speci men Type: BLOOD SPECIMENOrdering Facility: [facility] Address: [address] [place] [address] Performed By: #### 5 7021-8 ####[facility]ATORYCLIA [id number] [address] Nucleated RBC/100 WBC (Bld) [Ratio] 0.1 /100 WBC Normal [facility] Comment on above: Order Comment: Speci men Type: BLOOD SPECIMENOrdering Facility: [facility] Address: [address] [place] [address] Performed By: #### 5 7021-8 ####[facility]ATORYCLIA [id number] [address] [place] Platelet mean volume (Bld) [Entitic vol] 9.7 fL Normal 9.0-12.7 [facility] Comment on above: Order Comment: Speci men Type: BLOOD SPECIMENOrdering Facility: [facility] Address: [address] [place] [address] Performed By: #### 5 7021-8 ####[facility]ORYCLIA [id number] [address] Platelets (Bld) [#/Vol] 179 10*3/uL Normal 150-400 [facility] Comment on above: Order Comment: Speci men Type: BLOOD SPECIMENOrdering Facility: [facility] Address: [address] [place] [address] Performed By: #### 5 7021-8 ####[facility]ATORYCLIA [id number] [place] [address] [place] RBC (Bld) [#/Vol] 5.12 10*6/uL Normal 3.90-5.20 [facility] Comment on above: Order Comment: Speci men Type: BLOOD SPECIMENOrdering Facility: [facility] Address: [address] [place] [address] Performed By: #### 5 7021-8 ####[facility]ATORYCLIA [id number] [address] STATES OF [facility] WBC (Bld) [#/Vol] 18.05 10*3/uL High 3.70-11.00 [facility] Comment on above: Order Comment: Speci men Type: BLOOD SPECIMENOrdering Facility: [facility] Address: [address] [place] [address] Performed By: #### 5 7021-8 ####[facility]ATORYCLIA [id number] [address] [place] CONSULTon 01-18-2023 CONSULT Normal [facility] CONSULT Normal [facility] CONSULT Normal [facility] CONSULT PROGon 01-18-2023 CONSULT PROG Normal [facility] HISTORY PHYSICALon HISTORY PHYSICAL Normal [facility] Lactate (Bld) [Moles/Vol]on 01-18-2023 Lactate [Moles/Vol] 1.6 mmol/L Normal 0.5-2.2 [facility] Comment on above: Order Comment: Speci men Type: BLOOD SPECIMENOrdering Facility: [facility] Address: [address] [place] [address] Performed By: #### 3 2693-4 ####[facility]ATORYCLIA [id number] [address] [place] Magnesium SerPl-mCncon 01-18 Magnesium [Mass/Vol] 1.5 mg/dL Low 1.7-2.3 [facility] Comment on above: Order Comment: Speci men Type: BLOOD SPECIMENOrdering Facility: [facility] Address: [address] [place] [address] Performed By: #### 2 4321-2, 277-, ####[facility]ATORYCLIA [id number] [address] Microorganism Spec Culton Microorganism identified Cx Nom (Unsp spec) CULTURE, FUNGAL: No Fungus isolated after 28 days FUNGAL SMEAR: No fungus seen Normal [facility] Comment on above: Performed By: #### 6 35-3, 86525-4, 16883-2 ####[facility]ATORYCLIA [id number] [address] Microorganism identified Cx Nom (Unsp spec) CULTURE, AFB: No Acid Fast Bacilli isolated after 42 days AFB STAIN: No acid fast bacilli seen by flurochrome stain Normal [facility] Comment on above: Performed By: #### 6 35-3, 86338-7, 90603-8 ####[facility]ATORYCLIA [id number] [address] [place] OPERATIVE NOon 01-18-2023 OPERATIVE NO Normal [facility] Phosphate SerPl-mCncon 01-18 Phosphate [Mass/Vol] 2.9 mg/dL Normal 2.7-4.8 [facility] Comment on above: Order Comment: Speci men Type: BLOOD SPECIMENOrdering Facility: [facility] Address: [address] [place] [address] Performed By: #### 2 4321-2, 277-1, ####[facility]ORATORYCLIA [id number] [address] [place] STAPH AUREUS PCRon 3 S. aureus and MRSA panel SWEETIE+probe (Nose) Normal Negative [facility] Comment on above: Order Comment: Speci men Type: SWAB OF INTERNAL NOSEOrdering Facility: [facility] Address: [address] [phone] Result Comment: Nega tive for Staphylococcus aureus by PCR.Negative for MRSA by PCR Performed By: #### S APCR ####[facility]ORATORYCLIA [id number] [address] [place] XR ABDOMEN 1V SUPINEon 01-18 XR ABDOMEN 1V SUPINE Normal [facility] XR CHEST 1V FRONTALon 2022 XR CHEST 1V FRONTAL Normal [facility] ALLIED HEALTHon 01-17-2023 ALLIED HEALTH Normal [facility] Bacteria Bld Culton 01-18-20 23 Bacteria identified Cx Nom (Bld) CULTURE, BLOOD: No growth 5 days Normal [facility] Comment on above: Performed By: #### 6 00-7 ####[facility]ATORYCLIA [id number] [place] [address] [place] Bacteria identified Cx Nom (Bld) CULTURE, BLOOD: No growth 5 days Normal [facility] Comment on above: Performed By: #### 6 00-7 ####[facility]ORATORYCLIA [id number] [place] [address] [place] Basic metabolic 2000 panelon 01-17-2023 Anion gap [Moles/Vol] 11 mmol/L Normal 9-18 [facility] Comment on above: Order Comment: Speci men Type: BLOOD SPECIMENOrdering Facility: [facility] Address: [place] [address] Performed By: #### 2 4321-2 ####[facility] LABCLIA [id number] [place] [address] [place] Calcium [Mass/Vol] 8.9 mg/dL Normal 8.5-10.2 [facility] Comment on above: Order Comment: Speci men Type: BLOOD SPECIMENOrdering Facility: [facility] Address: [address] [address] Performed By: #### 2 4321-2 ####[facility] LABCLIA [id number] [place] [address] [place] Chloride [Moles/Vol] 87 mmol/L Low 97-105 [facility] Comment on above: Order Comment: Speci men Type: BLOOD SPECIMENOrdering Facility: [facility] Address: [address] [place] [address] Performed By: #### 2 4321-2 ####[facility] LABCLIA [id number] [place] [address] [place] CO2 [Moles/Vol] 33 mmol/L High 22-30 [facility] Comment on above: Order Comment: Speci men Type: BLOOD SPECIMENOrdering Facility: [facility] [facility] Address: [address] [place] [address] Performed By: #### 2 4321-2 ####[facility] LABCLIA [id number] [place] [address] [place] Creatinine [Mass/Vol] 0.67 mg/dL Normal 0.58-0.96 [facility] Comment on above: Order Comment: Speci men Type: BLOOD SPECIMENOrdering Facility: [facility] Address: [address] [place] [address] Performed By: #### 2 4321-2 ####[facility] LABCLIA [id number] [place] [id number] [facility] Creatinine and Glomerular filtration rate.predicted panel (S/P/Bld) 101 mL/min/1.73m??? Normal >=60 [facility] Comment on above: Order Comment: Speci men Type: BLOOD SPECIMENOrdering Facility: [facility] Address: [address] [place] [address] Result Comment: Leslie mated Glomerular Filtration Rate (eGFR) is calculated using the 2020 CKD-EPI creatinine equation. This equation utilizes serum creatinine, sex, and age as parameters. The creatinine assay has traceable calibration to isotope dilution-mass spectrometry. Refer to KDIGO guidelines for clinical interpretation. In patients with unstable renal function, e.g. those with acute kidney injury, the eGFR may not accurately reflect actual GFR. Performed By: #### 2 4321-2 ####[facility] [employer] LABCLIA [id number] [place] [address] [place] Glucose [Mass/Vol] 116 mg/dL High 74-99 [facility] Comment on above: Order Comment: Jadon anson Type: BLOOD SPECIMENOrdering Facility: [facility] Address: [address] [place], [place] [address] Result Comment: The [place] Diabetes Association (ADA) provides guidance for cutoff values for fasting glucose and random glucose. The ADA defines fasting as no caloric intake for at least 8 hours. Fasting plasma glucose results between 100 to 125 mg/dL indicate increased risk for diabetes (prediabetes).Fasting plasma glucose results greater than or equal to 126 mg/dL meet the criteria for diagnosis of diabetes. In the absence of unequivocal hyperglycemia, results should be confirmed by repeat testing. In a patient with classic symptoms of hyperglycemia or hyperglycemic crisis, random plasma glucose results greater than or equal to 200 mg/dL meet the criteria for diagnosis of diabetes.Reference: Standards of Medical Care in Diabetes 2016, [employer] Diabetes Association. Diabetes Care. 2016.39(Suppl 1). Performed By: #### 2 4321-2 ####[facility] [employer] LABCLIA [id number] [place] [address] [place] Potassium [Moles/Vol] 3.5 mmol/L Low 3.7-5.1 [facility] Comment on above: Order Comment: Jadon griggs Type: BLOOD SPECIMENOrdering Facility: [facility] Address: [address] [id number] Performed By: #### 2 4321-2 ####[facility] [place] LABCLIA [id number] [place] [address] [place] Sodium [Moles/Vol] 131 mmol/L Low 136-144 [facility] Comment on above: Order Comment: Jadon anson Type: BLOOD SPECIMENOrdering Facility: [facility] Address: [address] [place] [address] Performed By: #### 2 4321-2 ####[facility] LABCLIA [id number] [place] [address] [facility] Urea nitrogen [Mass/Vol] 14 mg/dL Normal 7-21 [facility] Comment on above: Order Comment: Speci men Type: BLOOD SPECIMENOrdering Facility: [facility] Address: [address] [place] [address] Performed By: #### 2 4321-2 ####[facility] LABCLIA [id number] [place] [id number] [place] CBC W Auto Differential pane l (Bld)on 01-17-2023 Basophils (Bld) [#/Vol] 0.05 10*3/uL Normal <0.11 [facility] Comment on above: Order Comment: Speci men Type: BLOOD SPECIMENOrdering Facility: [facility] Address: [address] [place] [address] Performed By: #### 5 7021-8 ####[facility] LABCLIA [id number] [address] Basophils/100 WBC (Bld) 0.2 % Normal [facility] Comment on above: Order Comment: Speci men Type: BLOOD SPECIMENOrdering Facility: [facility] Address: [address] [place] [address] Result Comment: Diff erential confirmed by visual scan of peripheral blood smear slide. Performed By: #### 5 7021-8 ####[facility] [place] LABCLIA [id number] [address] Differential cell count method Nom (Bld) Auto Normal [facility] Comment on above: Order Comment: Speci men Type: BLOOD SPECIMENOrdering Facility: [facility] Address: [address] [place] [address] Performed By: #### 5 7021-8 ####[facility] [place] LABCLIA [id number] [place] [address] [place] Eosinophils (Bld) [#/Vol] 10*3/uL Normal <0.46 [facility] Comment on above: Order Comment: Speci men Type: BLOOD SPECIMENOrdering Facility: [facility] Address: [address] [place] [address] Performed By: #### 5 7021-8 ####[facility] [place] LABCLIA [id number] [place] [address] [place] Eosinophils/100 WBC (Bld) 0.0 % Normal [facility] Comment on above: Order Comment: Speci men Type: BLOOD SPECIMENOrdering Facility: [facility] Address: [address] [place] [address] Performed By: #### 5 7021-8 ####[facility] [place] LABCLIA [id number] [facility] [place] [address] [place] Erythrocyte distribution width (RBC) [Ratio] 23.2 % High 11.5-15.0 [facility] Comment on above: Order Comment: Speci men Type: BLOOD SPECIMENOrdering Facility: [facility] Address: [address] [place] [address] Performed By: #### 5 7021-8 ####[facility] [place] LABCLIA [id number] [facility] [place] [address] [place] Hematocrit (Bld) [Volume fraction] 40.9 % Normal 36.0-46.0 [facility] Comment on above: Order Comment: Speci men Type: BLOOD SPECIMENOrdering Facility: [facility] Address: [address] [place] [address] Performed By: #### 5 7021-8 ####[facility] [place] LABCLIA [id number] [facility] [place] [address] [facility] [place] Hemoglobin (Bld) [Mass/Vol] 12.0 g/dL Normal 11.5-15.5 [facility] Comment on above: Order Comment: Speci men Type: BLOOD SPECIMENOrdering Facility: [facility] Address: [address] [address] Performed By: #### 5 7021-8 ####[facility] [place] LABCLIA [id number] [place] [address] [place] [facility] Immature granulocytes (Bld) [#/Vol] 0.15 10*3/uL High <0.10 [facility] Comment on above: Order Comment: Speci men Type: BLOOD SPECIMENOrdering Facility: [facility] Address: [address] [place] [address] Performed By: #### 5 7021-8 ####[facility] [place] LABCLIA [id number] [address] Immature granulocytes/100 WBC (Bld) 0.6 % Normal [facility] Comment on above: Order Comment: Speci men Type: BLOOD SPECIMENOrdering Facility: [facility] Address: [address] [place] [address] Performed By: #### 5 7021-8 ####[facility] [place] LABCLIA [id number] [place] [address] [place] Lymphocytes (Bld) [#/Vol] 0.87 10*3/uL Low 1.00-4.00 [facility] Comment on above: Order Comment: Speci men Type: BLOOD SPECIMENOrdering Facility: [facility] Address: [address] [place] [address] Performed By: #### 5 7021-8 ####[facility] [place] LABCLIA [id number] [place] [id number] [facility] [place] Lymphocytes/100 WBC (Bld) 3.3 % Normal [facility] Comment on above: Order Comment: Speci men Type: BLOOD SPECIMENOrdering Facility: [facility] Address: [address] [place] [address] Performed By: #### 5 7021-8 ####[facility] [place] LABCLIA [id number] [place] [address] [place] MCH (RBC) [Entitic mass] 21.0 pg Low 26.0-34.0 [facility] Comment on above: Order Comment: Speci men Type: BLOOD SPECIMENOrdering Facility: [facility] Address: [address] [place] [address] Performed By: #### 5 7021-8 ####[facility] [place] LABCLIA [id number] [place] [address] [place] MCHC (RBC) [Mass/Vol] 29.3 g/dL Low 30.5-36.0 [facility] Comment on above: Order Comment: Speci men Type: BLOOD SPECIMENOrdering Facility: [facility] Address: [address] [place] [address] Performed By: #### 5 7021-8 ####[facility] LABCLIA [id number] [place] [address] [place] MCV (RBC) [Entitic vol] 71.5 fL Low 80.0-100.0 [facility] Comment on above: Order Comment: Speci men Type: BLOOD SPECIMENOrdering Facility: [facility] Address: [address] [place] [address] Performed By: #### 5 7021-8 ####[facility] LABCLIA [id number] [facility], [place] [address] [place] [address] [place] Monocytes (Bld) [#/Vol] 1.10 10*3/uL High <0.87 [facility] Comment on above: Order Comment: Speci men Type: BLOOD SPECIMENOrdering Facility: [facility] Address: [address] [place] [address] Performed By: #### 5 7021-8 ####[facility] LABCLIA [id number] [address] Monocytes/100 WBC (Bld) 4.2 % Normal [facility] Comment on above: Order Comment: Speci men Type: BLOOD SPECIMENOrdering Facility: [facility] Address: [address] [place] [address] Performed By: #### 5 7021-8 ####[facility] [place] LABCLIA [id number] [place] [address] [place] Neutrophils (Bld) [#/Vol] 23.85 10*3/uL High 1.45-7.50 [facility] Comment on above: Order Comment: Speci men Type: BLOOD SPECIMENOrdering Facility: [facility] Address: [address] [place] [address] Performed By: #### 5 7021-8 ####[facility] [place] LABCLIA [id number] [place] [address] [place] Neutrophils/100 WBC (Bld) 91.7 % Normal [facility] Comment on above: Order Comment: Speci men Type: BLOOD SPECIMENOrdering Facility: [facility] Address: [address] [place] [address] Performed By: #### 5 7021-8 ####[facility] [place] LABCLIA [id number] [place] [address] [place] Nucleated RBC (Bld) [#/Vol] Normal [facility] Comment on above: Order Comment: Speci men Type: BLOOD SPECIMENOrdering Facility: [facility] Address: [address] [place] [address] Performed By: #### 5 7021-8 ####[facility] LABCLIA [id number] [place] [address] [place] Nucleated RBC/100 WBC (Bld) [Ratio] Normal [facility] Comment on above: Order Comment: Speci men Type: BLOOD SPECIMENOrdering Facility: [facility] Address: [address] [place] [address] Performed By: #### 5 7021-8 ####[facility] [place] LABCLIA [id number] [facility] [place] [address] [place] Platelet mean volume (Bld) [Entitic vol] 10.2 fL Normal 9.0-12.7 [facility] Comment on above: Order Comment: Speci men Type: BLOOD SPECIMENOrdering Facility: [facility] Address: [address] [place] [address] Performed By: #### 5 7021-8 ####[facility] LABCLIA [id number] [place] [address] [place] Platelets (Bld) [#/Vol] 233 10*3/uL Normal 150-400 [facility] Comment on above: Order Comment: Speci men Type: BLOOD SPECIMENOrdering Facility: [facility] Address: [address] [place] [address] Result Comment: Plat elet count confirmed by manual review of peripheral blood smear. Performed By: #### 5 7021-8 ####[facility] LABCLIA [id number] [place] [address] [place] RBC (Bld) [#/Vol] 5.72 10*6/uL High 3.90-5.20 [facility] Comment on above: Order Comment: Speci men Type: BLOOD SPECIMENOrdering Facility: [facility] Address: [address] [place] [address] Performed By: #### 5 7021-8 ####[facility] LABCLIA [id number] [address] OF [facility] WBC (Bld) [#/Vol] 26.02 10*3/uL High 3.70-11.00 [facility] Comment on above: Order Comment: Speci men Type: BLOOD SPECIMENOrdering Facility: [facility] Address: [address] [place] [address] Performed By: #### 5 7021-8 ####[facility] LABCLIA [id number] [address] OF [place] CT ABD/PEL W IVCONon 023 CT ABD/PEL W IVCON Normal [facility] CT CHEST W IVCON PEon 2022 CT CHEST W IVCON PE Normal [facility] ECG COMPLETEon 01-17-2023 ECG COMPLETE Normal [facility] ED NOTEon 01-17-2023 ED NOTE HNO ID: [id number] Author: Tanika Banda RN Service: Nursing Author Type: Registered Nurse Type: ED Notes Filed: 01/17/2023 8:02 PM Note Text: [facility] arrives for transport Normal [facility] ED NOTE HNO ID: [id number] Author: Chantelle Hardin RN Service: Emergency Medicine Author Type: Registered Nurse Type: ED Notes Filed: 01/17/2023 6:58 PM Note Text: [facility] ETA: 2.5 HOURS Normal [facility] ED NOTE HNO ID: [id number] Author: Chantelle Hardin RN Service: Emergency Medicine Author Type: Registered Nurse Type: ED Notes Filed: 01/17/2023 6:51 PM Note Text: PT accepted [facility] 4218 [phone] Normal [facility] ED NOTE Normal [facility] ED PROV NOTEon 01-17-2023 ED PROV NOTE Normal [facility] HIGH SENSITIVITY TROPONIN To n 01-17-2023 Troponin T.cardiac High sensitivity method [Mass/Vol] 15 ng/L High <12 [facility] Comment on above: Order Comment: Jadon griggs Type: BLOOD SPECIMENOrdering Facility: [facility] Address: [address] [place] [address] Result Comment: When assessing risk for acute coronary syndromes: In patients undergoing blood draw greater than or equal to 2 hours from symptom onset, with history of very low to moderate risk and non-ischemic ECG, an initial hs-Troponin T less than 12 ng/L AND a 1 hour delta hs-Troponin T less than 3 ng/L should be considered very low risk for 30 day MACE. Performed By: #### H STNT ####[facility] [place] LABCLIA [id number] [place] [address] [place] Lactate (Bld) [Moles/Vol]on 01-17-2023 Lactate [Moles/Vol] 1.8 mmol/L Normal 0.5-2.2 [facility] Comment on above: Order Comment: Jadon griggs Type: BLOOD SPECIMENOrdering Facility: [facility] Address: [address] [place] [address] Performed By: #### 3 2693-4 ####[facility] [place] LABCLIA [id number] [place] [address] [facility] [place] Urinalysis complete panel (U )on 01-17-2023 Bacteria LM.HPF (Urine sed) [#/Area] Moderate Abnormal None Seen [facility] Comment on above: Order Comment: Speci men Type: URINE SPECIMENOrdering Facility: [facility] Address: [address] [place] [address] Performed By: #### 2 4356-8 ####[facility] LABCLIA [id number] [place] [id number] [facility] Bilirubin Ql (U) 2+ Abnormal Negative [facility] Comment on above: Order Comment: Speci men Type: URINE SPECIMENOrdering Facility: [facility] Address: [address] [place] [address] Result Comment: Sugg est correlation with clinical findings and serum bilirubin if clinically indicated. Performed By: #### 2 4356-8 ####[facility] LABCLIA [id number] [place], [place] [id number] [place] [address] Clarity (Unsp spec) Cloudy Abnormal Clear [facility] Comment on above: Order Comment: Speci men Type: URINE SPECIMENOrdering Facility: [facility] Address: [address] [place] [address] Performed By: #### 2 4356-8 ####[facility] LABCLIA [id number] [place] [address] [facility] Color (U) Chantelle Abnormal Yellow [facility] Comment on above: Order Comment: Speci men Type: URINE SPECIMENOrdering Facility: [facility] Address: [address] [place] [address] Performed By: #### 2 4356-8 ####[facility] [place] LABCLIA [id number] [place] [address] [facility] Epithelial cells LM.HPF (Urine sed) [#/Area] Moderate Normal [facility] Comment on above: Order Comment: Speci men Type: URINE SPECIMENOrdering Facility: [facility] Address: [address] [place] [address] Performed By: #### 2 4356-8 ####[facility] [place] LABCLIA [id number] [facility] [place] [address] [facility] Glucose Test strip (U) [Mass/Vol] Negative Normal Negative [facility] Comment on above: Order Comment: Speci men Type: URINE SPECIMENOrdering Facility: [facility] Address: [address] [place] [address] Performed By: #### 2 4356-8 ####[facility] [place] LABCLIA [id number] [place] [address] [facility] Hemoglobin Ql (U) Trace Abnormal Negative [facility] Comment on above: Order Comment: Speci men Type: URINE SPECIMENOrdering Facility: [facility] Address: [address] [place] [address] Performed By: #### 2 4356-8 ####[facility] [place] LABCLIA [id number] [place] [address] [place] [facility] Ketones Ql (U) Negative Normal Negative [facility] Comment on above: Order Comment: Speci men Type: URINE SPECIMENOrdering Facility: [facility] Address: [address] [place] [address] Performed By: #### 2 4356-8 ####[facility] [place] LABCLIA [id number] [place] [address] [place] Leukocyte esterase Test strip Ql (U) Trace Abnormal Negative [facility] Comment on above: Order Comment: Speci men Type: URINE SPECIMENOrdering Facility: [facility] Address: [address] [place] [address] Performed By: #### 2 4356-8 ####[facility] [place] LABCLIA [id number] [place] [address] [place] Nitrite Ql (U) Negative Normal Negative [facility] Comment on above: Order Comment: Speci men Type: URINE SPECIMENOrdering Facility: [facility] Address: [address] [place] [address] Performed By: #### 2 4356-8 ####[facility] LABCLIA [id number] [place] [address] [facility] pH (U) 6.0 [pH] Normal 5.0-8.0 [facility] Comment on above: Order Comment: Speci men Type: URINE SPECIMENOrdering Facility: [facility] Address: [address] [place] [address] Performed By: #### 2 4356-8 ####[facility] LABCLIA [id number] [place] [id number] [facility] Protein (U) [Mass/Vol] 2+ Abnormal Negative [facility] Comment on above: Order Comment: Speci men Type: URINE SPECIMENOrdering Facility: [facility] Address: [address] [place] [address] Performed By: #### 2 4356-8 ####[facility] LABCLIA [id number] [place] [id number] [place] RBC LM.HPF (Urine sed) [#/Area] 3-5 /HPF Abnormal 0-3 /HPF [facility] Comment on above: Order Comment: Speci men Type: URINE SPECIMENOrdering Facility: [facility] Address: [address] [place] [address] Performed By: #### 2 4356-8 ####[facility] LABCLIA [id number] [place] [address] [place] Specific gravity (U) [Rel density] 1.025 Normal 1.005-1.030 [facility] Comment on above: Order Comment: Speci men Type: URINE SPECIMENOrdering Facility: [facility] Address: [address] [place] [address] Performed By: #### 2 4356-8 ####[facility] LABCLIA [id number] [place] [address] [facility] Urobilinogen Ql (U) >=8.0 EU/dL Abnormal 0.2-1.0 EU/dL A [facility] Comment on above: Order Comment: Speci men Type: URINE SPECIMENOrdering Facility: [facility] Address: [address] [place] [address] Performed By: #### 2 4356-8 ####[facility] LABIA [id number] [place] [id number] [facility] WBC LM.HPF (Urine sed) [#/Area] 6-10 /HPF Abnormal 0-5 /HPF [facility] Comment on above: Order Comment: Speci men Type: URINE SPECIMENOrdering Facility: [facility] Address: [address] [place] [address] Performed By: #### 2 4356-8 ####[facility] [id number] [place] [id number] [facility] Echocardiogramon 01-11-2023 [place] [address] [phone], TRANSTHORACIC ECHOCARDIOGRAM REPORT Patient Name: CAROLYN PARNELL Reading Physician: [id number] David Richmnod MD Study Date: 01/11/2023 Referring Physician: Haja Mane CNP MRN/PID: [id number] PCP: Accession/Order#: [id number] Department Location: [facility] Echo Lab Date of : 1965 Fellow: Gender: F Nurse: Admit Date: Search Engineer: BRIDGETTE Dolan RVT Admission Status: Outpatient Additional Staff: Height: 170.18 cm CC Report to: Weight: 147.42 kg Study Type: Echocardiogram BSA: 2.49 m2 Blood Pressure: 140 /88 mmHg Diagnosis/ICD: R60.1-Generalized edema Indication: Peripheral edema Procedure/CPT: Echo Complete w Full [id number] Patient History: Pertinent History: No previous echo. Study Detail: The following Echo studies were performed: 2D, M-Mode, Doppler and color flow. Technically challenging study due to body habitus and Wt 324 lbs. Definity used as a contrast agent for endocardial border definition. Total contrast used for this procedure was 1 mL via IV push. A bubble study was not performed. The patient was awake. PHYSICIAN INTERPRETATION: Left Ventricle: Left ventricular systolic function is normal, with an estimated ejection fraction of 65%. There are no regional wall motion abnormalities. The left ventricular cavity size is normal. Left ventricular diastolic filling was indeterminate. Left Atrium: The left atrium was not well visualized. Right Ventricle: The right ventricle is moderately enlarged. There is reduced right ventricular systolic function. Enlarged right ventricle with reduced systolic function. Right Atrium: The right atrium is moderately dilated. The right atrium has a prominent Eustachean valve. Aortic Valve: The aortic valve is probably trileaflet. There is no evidence of aortic valve regurgitation. The peak instantaneous gradient of the aortic valve is 13.7 mmHg. The mean gradient of the aortic valve is 7.0 mmHg. Mitral Valve: The mitral valve is normal in structure. There is no evidence of mitral valve regurgitation. Tricuspid Valve: The tricuspid valve is structurally normal. There is mild tricuspid regurgitation. RV-RA gradient 52 mmHg. Pulmonic Valve: The pulmonic valve is not well visualized. There is no indication of pulmonic valve regurgitation. Pericardium: There is no pericardial effusion noted. Aorta: The aortic root was not well visualized. CONCLUSIONS: 1. Left ventricular systolic function is normal with a 65% estimated ejection fraction. 2. Enlarged right ventricle with reduced systolic function. 3. D-shaped interventricular septum in systole and diastole; consistent with right ventricular pressure and volume overload. 4. The right atrium is moderately dilated. 5. Dilated inferior vena cava. 6. Calculated pulmonary artery systolic pressure is 67 mmHg consistent with pulmonary hypertension. 7. Findings are suggestive of pulmonary hypertension with right ventricular dysfunction; consider cardiology consult. QUANTITATIVE DATA SUMMARY: 2D MEASUREMENTS: Normal Ranges: Ao Root d: 2.50 cm (2.0-3.7cm) LAs: 3.80 cm (2.7-4.0cm) IVSd: 1.13 cm (0.6-1.1cm) LVPWd: 1.19 cm (0.6-1.1cm) LVIDd: 3.61 cm (3.9-5.9cm) LVIDs: 2.22 cm LV Mass Index: 54.3 g/m2 LV % FS 38.5 % LA VOLUME: Normal Ranges: LA Vol A4C: 29.0 ml (22+/-6mL/m2) LA Vol A2C: 27.1 ml LA Vol BP: 32.6 ml LA Vol Index A4C: 11.7ml/m2 LA Vol Index A2C: 10.9 ml/m2 LA Vol Index BP: 13.1 ml/m2 LA Area A4C: 15.3 cm2 LA Area A2C: 12.7 cm2 LA [place] A4C: 6.9 cm LA [place] A2C: 5.1 cm LA Volume Index: 10.3 ml/m2 LA Vol A4C: 28.0 ml LA Vol A2C: 25.6 ml LV SYSTOLIC FUNCTION BY 2D PLANIMETRY (MOD): Normal Ranges: EF-A4C View: 84.3 % (>=55%) EF-A2C View: 73.9 % EF-Biplane: 79.0 % LV DIASTOLIC FUNCTION: Normal Ranges: MV Peak E: 0.99 m/s (0.7-1.2 m/s) MV Peak A: 1.21 m/s (0.42-0.7 m/s) E/A Ratio: 0.82 (1.0-2.2) MV lateral e' 0.19 m/s MITRAL VALVE: Normal Ranges: MV DT: 106 msec (150-240msec) AORTIC VALVE: Normal Ranges: AoV Vmax: 1.85 m/s (<=1.7m/s) AoV Peak P.7 mmHg (<20mmHg) AoV Mean P.0 mmHg (1.7-11.5mmHg) LVOT Max Luisito: 1.38 m/s (<=1.1m/s) AoV VTI: 32.50 cm (18-25cm) LVOT VTI: 23.60 cm LVOT Diameter: 1.80 cm (1.8-2.4cm) AoV Area, VTI: 1.85 cm2 (2.5-5.5cm2) AoV Area,Vmax: 1.90 cm2 (2.5-4.5cm2) AoV Dimensionless Index: 0.73 RIGHT VENTRICLE: RV Basal 5.65 cm RV Mid 5.19 cm RV Major 8.0 cm TAPSE: 23.1 mm TRICUSPID VALVE/RVSP: Normal Ranges: Peak TR Velocity: 3.62 m/s RV Syst Pressure: 55.4 mmHg (< 30mmHg) PULMONIC VALVE: Normal Ranges: PV Accel Time: 92 msec (>120ms) PV Max Luisito: 1.5 m/s (0.6-0.9m/s) PV Max P.8 mmHg [id number] David Richmond MD Electronically signed on 01/11/2023 at 10:02:07 AM Final [facility] Narrative Note - Outpatient- CPS for definityon 01-11-2023 Narrative Note - Outpatient-CPS for definity Narrative Note: Discipline/ClinicCPS for definity Description Was called to CPS department to give Definity. Started a 22g IV in the R AC on second attempt via US. Flushed the IV with normal saline. Then the cardiothoracic anesthesia technician instructed to give 2 ml of Definity. Exam completed and IV flushed with normal saline and d/c with angiocath intact. Dressing applied to IV location. Patient tolerated without complaint. Electronic Signatures: Mitzy Mckinnon (RN) (Signed 11-Jan-2023 07:41) Authored: Narrative Note - OP Last Updated: 11-Jan-2023 07:41 by Mitzy Mckinnon (VANITA) [facility] VAS LAB Venous Insufficienc y/Reflux [facility] 12-29-2022 [facility] LAB Venous Insufficiency/[place] [address] [phone], Vascular Lab Report Venous Insufficiency/Reflux Ultrasound Patient Name: CAROLYN Alarcon Physician: [id number] Lenka Oh MD Study Date: 12/29/2022 Referring Physician: JOSE DANIEL MANE MRN/PID: [id number] PCP: Accession/Order#: [id number] CC Report to: Date of : 1965 Technologist: Alfonzo Fonseca RVT Gender: F Technologist 2: Admission Status: Outpatient Location Performed: [facility] Diagnosis/ICD: R60.0-Localized (leg) edema Procedure/CPT: 86702 Venous reflux study [id number] [id number] Patient Position: Study performed in a reverse Trendelenburg position. Pertinent History: Obesity and LE Edema. CONCLUSIONS: Right Lower Venous Insufficiency: There is reflux noted in the common femoral vein. Great saphenous vein was seen in segments; cannot rule out superficial vein thrombosis. Negative for acute superficial vein thrombosis and reflux in the remaining great saphenous vein and small saphenous vein segments. Small saphenous vein was not visualized mid to distal. Technically difficult study bilaterally due to body habitus and edema. Left Lower Venous Insufficiency: Reflux is noted in the saphenofemoral junction, proximal thigh great saphenous and mid thigh great saphenous veins. There is reflux noted in the common femoral vein. Negative for acute superficial vein thrombosis. Chronic disease is noted in the proximal small saphenous vein. Right Lower Venous: Negative for deep vein thrombosis in the visualized vessels. The posterior tibial and peroneal veins were visualized in segments. Left Lower Venous: Negative for deep vein thrombosis in the visualized vessels. The posterior tibial and peroneal veins were visualized in segments. Imaging AND Doppler Findings: Right Compress Thrombus Time SFJ Yes None Prox Thigh GSV Yes None Knee GSV Yes None Prox Calf GSV Yes None SSV Prox Yes None Common FV 1.15 sec Left Compress Thrombus Diam Depth Time SFJ Yes None 11.7 mm 30.2 mm 2.26 sec Prox Thigh GSV Yes None 4.9 mm 18.6 mm 1.83 sec Mid Thigh GSV Yes None 5.1 mm 29.9 mm 4.63 sec Knee GSV Yes None 4.4 mm 20.5 mm Prox Calf GSV Yes None 3.6 mm 31.7 mm Mid Calf GSV Yes None 3.9 mm 27.9 mm Dist Calf GSV Yes None 4.1 mm 21.8 mm SPJ Yes None SSV Prox Yes None SSV Mid Yes None SSV Distal Yes None Common FV 3.00 sec Right Compressible Thrombus Flow Distal External Iliac Pulsatile CFV Yes None Reflux PFV Yes None FV Proximal Yes None FV Mid Yes None Pulsatile FV Distal Yes None Popliteal Yes None Spontaneous/Phasic Left Compress Thrombus Flow Distal External Iliac Pulsatile CFV Yes None Reflux PFV Yes None FV Proximal Yes None Pulsatile FV Mid Yes None FV Distal Yes None Popliteal Yes None Pulsatile [id number] Lenka Oh MD Final Normal [facility] CBC AND DIFFERENTIALon 11-09 % AUTOMATED IMMATURE GRAN 0.3 % Normal 0.0 - 0.9 [facility] Comment on above: Result Comment: Patience ture Granulocyte Count (IG) includes promyelocytes, myelocytes and metamyelocytes but does not include bands. Percent differential counts (%) should be interpreted in the context of the absolute cell counts (cells/L). Performed By: #### C BCDF #### [address] [address] Basophils (Bld) [#/Vol] 0.05 10*3/uL Normal 0.00 - 0.10 [facility] Comment on above: Performed By: #### C BCDF #### [address] [address] Basophils/100 WBC (Bld) 0.8 % Normal 0.0 - 2.0 [facility] Comment on above: Performed By: #### C BCDF #### [address] [address] Eosinophils (Bld) [#/Vol] 0.07 10*3/uL Normal 0.00 - 0.70 [facility] Comment on above: Performed By: #### C BCDF #### [address] [address] Eosinophils/100 WBC (Bld) 1.1 % Normal 0.0 - 6.0 [facility] Comment on above: Performed By: #### C BCDF #### [address] [address] Lymphocytes (Bld) [#/Vol] 0.90 10*3/uL Low 1.20 - 4.80 [facility] Comment on above: Performed By: #### C BCDF #### [address] [address] Lymphocytes/100 WBC (Bld) 13.9 % Normal 13.0 - 44.0 [facility] Comment on above: Performed By: #### C BCDF #### [address] [address] Monocytes (Bld) [#/Vol] 0.56 10*3/uL Normal 0.10 - 1.00 [facility] Comment on above: Performed By: #### C BCDF #### [address] [address] Monocytes/100 WBC (Bld) 8.6 % Normal 2.0 - 10.0 [facility] Comment on above: Performed By: #### C BCDF #### [address] [address] Neutrophils (Bld) [#/Vol] 4.88 10*3/uL Normal 1.20 - 7.70 [facility] Comment on above: Result Comment: Perc ent differential counts (%) should be interpreted in the context of the absolute cell counts (cells/L). Performed By: #### C BCDF #### [address] [address] Neutrophils/100 WBC (Bld) 75.3 % Normal 40.0 - 80.0 [facility] Comment on above: Performed By: #### C BCDF #### [address] [address] Erythrocyte distribution width (RBC) [Ratio] 20.4 % High 11.5 - 14.5 [facility] Comment on above: Performed By: #### C BCDF #### [address] [address] Hematocrit (Bld) [Volume fraction] 42.0 % Normal 36.0 - 46.0 [facility] Comment on above: Performed By: #### C BCDF #### [address] [address] Hemoglobin (Bld) [Mass/Vol] 12.5 g/dL Normal 12.0 - 16.0 [facility] Comment on above: Performed By: #### C BCDF #### [address] [address] MCHC (RBC) [Mass/Vol] 29.8 g/dL Low 32.0 - 36.0 [facility] Comment on above: Performed By: #### C BCDF #### [address] [address] MCV (RBC) [Entitic vol] 76 fL Low 80 - 100 [facility] Comment on above: Performed By: #### C BCDF #### [place] [id number] Platelets (Bld) [#/Vol] 281 10*3/uL Normal 150 - 450 [facility] Comment on above: Performed By: #### C BCDF #### [place] [id number] RBC 5.56 x10E12/L High 4.00 - 5.20 [facility] Comment on above: Performed By: #### C BCDF #### [place] [id number] WBC (Bld) [#/Vol] 6.5 10*3/uL Normal 4.4 - 11.3 [facility] Comment on above: Performed By: #### C BCDF #### [place] [address] Lab Specimen Source Normal [facility] Comment on above: Performed By: #### C BCDF #### [place] [address] Performed By: #### M ORP2 #### [place] [address] Performed By: #### T HYDS #### [place] [address] Performed By: #### C MP #### [place] [address] Performed By: #### V TB12 #### [place] [address] Performed By: #### R F #### [facility] [address] [place] [address] COMPREHENSIVE PANELon 2022 Albumin [Mass/Vol] 3.8 g/dL Normal 3.4 - 5.0 [facility] Comment on above: Performed By: #### C MP #### [place] [address] ALP [Catalytic activity/Vol] 76 U/L Normal 33 - 110 [facility] Comment on above: Performed By: #### C MP #### [address] [address] ALT [Catalytic activity/Vol] 12 U/L Normal 7 - 45 [facility] Comment on above: Result Comment: Danyelle ents treated with Sulfasalazine may generate falsely decreased results for ALT. Performed By: #### C MP #### [address] [address] Anion gap [Moles/Vol] 11 mmol/L Normal 10 - 20 [facility] Comment on above: Performed By: #### C MP #### [address] [address] AST [Catalytic activity/Vol] 21 U/L Normal 9 - 39 [facility] Comment on above: Performed By: #### C MP #### [address] [address] Bilirubin [Mass/Vol] 0.9 mg/dL Normal 0.0 - 1.[address] [facility] Comment on above: Performed By: #### C MP #### [address] [address] Calcium [Mass/Vol] 8.8 mg/dL Normal 8.6 - 10.3 [facility] Comment on above: Performed By: #### C MP #### [address] [address] Chloride [Moles/Vol] 92 mmol/L Low 98 - [address] [facility] Comment on above: Performed By: #### C MP #### [address] [address] Creatinine [Mass/Vol] 0.63 mg/dL Normal 0.50 - 1.05 [facility] Comment on above: Performed By: #### C MP #### [address] [address] eGFR FEMALE >90 Normal >90 [facility] Comment on above: Result Comment: CALC ULATIONS OF ESTIMATED GFR ARE PERFORMED USING THE 2020 CKD-EPI STUDY REFIT EQUATION WITHOUT THE RACE VARIABLE FOR THE IDMS-TRACEABLE CREATININE METHODS. https://jasn.asnjournals.org/content//ASN.711783 6306 Performed By: #### C MP #### [address] [address] Glucose [Mass/Vol] 96 mg/dL Normal 74 - 99 [facility] Comment on above: Performed By: #### C MP #### [address] [address] HCO3 (Bld) [Moles/Vol] 33 mmol/L High 21 - 32 [facility] Comment on above: Performed By: #### C MP #### [address] [address] Potassium [Moles/Vol] 4.3 mmol/L Normal 3.5 - 5.3 [facility] Comment on above: Performed By: #### C MP #### [address] [address] Protein [Mass/Vol] 6.2 g/dL Low 6.4 - 8.2 [facility] Comment on above: Performed By: #### C MP #### [address] [address] Sodium [Moles/Vol] 132 mmol/L Low 136 - 145 [facility] Comment on above: Performed By: #### C MP #### [address] [address] Urea nitrogen [Mass/Vol] 6 mg/dL Normal 6 - 23 [facility] Comment on above: Performed By: #### C MP #### [address] [address] RED CELL MORPHOLOGYon 2022 POLYCHROMASIA Mild Normal [facility] Comment on above: Performed By: #### M ORP2 #### [address] [address] RBC morphology finding Nom (Bld) See Below Normal [facility] Comment on above: Performed By: #### M ORP2 #### [address] [place] [address] STOMATOCYTES Few Normal [facility] Comment on above: Performed By: #### M ORP2 #### [address] [address] TARGET CELLS Many Normal [facility] Comment on above: Performed By: #### M ORP2 #### [address] [address] RHEUMATOID FACTORon 11-10-19 RHEUMATOID FACTOR <10 Normal 0 - 15 [facility] Comment on above: Performed By: #### R F #### [facility] [address] [place] [address] TSH WITH REFLEX TO FREE T4 I F ABNORMALon 11-09-2022 TSH Qn 3.40 m[IU]/L Normal 0.44 - 3.98 [facility] Comment on above: Result Comment: TSH testing is performed using different testing methodology at [facility] than at other [facility]. Direct result comparisons should only be made within the same method. Performed By: #### T HYDS #### [address] [address] VITAMIN B12on 11-09-2022 Cobalamin (Vitamin B12) [Mass/Vol] 581 pg/mL Normal 211 - 911 [facility] Comment on above: Performed By: #### V TB12 #### [address] [address] Office Visit (Primary Care T xt/Forms)on 06-22-2022 Follow-up visit Diagnoses/Problems Assessed Anxiety (300.00) (F41.9) Morbid obesity with BMI of 45.0-49.9, adult (278.01,V85.42) (E66.01,Z68.42) Nicotine dependence, cigarettes, uncomplicated (305.1) (F17.210) Migraine with aura and without status migrainosus, not intractable (346.00) (G43.109) Prediabetes (790.29) (R73.03) Joint pain in both hands (719.44) (M25.541,M25.542) Orders Anxiety Renew: LORazepam 1 MG Oral Tablet; TAKE 1 TABLET AT BEDTIME NEEDED Joint pain in both hands Start: Meloxicam 7.5 MG Oral Tablet; TAKE 1 TABLET DAILY WITH FOOD Nicotine dependence, cigarettes, uncomplicated Start: buPROPion HCl ER (SR) 150 MG Oral Tablet Extended Release 12 Hour; TAKE 1 TABLET EVERY 12 HOURS DAILY Start: Nicotine 14 MG/24HR Transdermal Patch 24 Hour; APPLY 1 PATCH DAILY DIRECTED Start: Nicotine 21 MG/24HR Transdermal Patch 24 Hour; APPLY 1 PATCH DAILY DIRECTED Start: Nicotine 7 MG/24HR Transdermal Patch 24 Hour; APPLY 1 PATCH DAILY DIRECTED Provider Impressions Provider Impressions Free Text Note Form: RTC 3 months Start Wellbutrin 150 mg by mouth daily x3 days then twice daily. Nicotine replacement patches 21 mg patch daily x6 weeks then 14 mg daily patch x2 weeks and finished with 7 mg patch x2 weeks. She is to start this therapy approximately 1 week before her target quit date. For any new medications that were prescribed today, the patient was educated about their indications for use, administration, frequency and potential side effects of the medication. Mobic 7.5 mg by mouth daily Start calcium and vitamin D daily I have counselled patient about need for smoking/tobacco cessation and how I can support efforts when patient is ready to quit. Discussed Nicotine replacement patches,Varenicline, bupropion, hypnosis, support groups AND acupuncture as potential options. Patient currently has no signs or symptoms of tobacco related disease. Time Code: 1. Preparation for patient's visit (reviewing chart, current medical record, outside health provider records, previous history, exam, test, procedure, and medications) 2. Ylup-kd-Jnrt encounter obtaining history from patient/family/caregiv ers; performing evaluation and exam; ordering tests or procedures; referring and communicating with other health care providers; counseling and education of the patient/family/caregiv ers; independently interpreting results (tests, labs, procedures, imaging) and communicating and explaining results to the patient/family/caregiv ers 3. Coordination of care; preparing and printing discharge instructions and any educational material for the patient/family/caregiv ers. Documenting clinical information into the electronic medical record 4. Reviewing OARRS as needed MDM: 1) complexity: more than 1 stable chronic condition addressed or 1 acute illness addressed. 2) Data: tests interpreted and/or ordered, took independent history or records reviewed. 3) Risk: moderate risk due to nature of medical conditions/comorbidity or medications ordered or surgical or procedural referral Chief Complaint 3 MO F/U. CSA History of Present Illness Isabella comes to the office for 3-month controlled substance visit. CSA signed on: 03/23/2022 I have printed this form and reviewed each line item with the patient and the patient has verbalized understanding. Taking lorazepam daily. Attempted to lower her dose and caused worsening anxiety and agitation. Urine Drug Screen completed: 03/23/2022 RAFAELA-7 Score: 14 OD Risk Score: 270 Patient Pain Scale: N/A I have personally reviewed the OARRS report for this patient. I have considered the risks of abuse, dependence, addiction and diversion. I believe that it is clinically appropriate for this patient to be prescribed this medication based on the documented diagnosis. HX of referrals/Alternatives : On Lexapro daily Breast cancer screening: Up-to-date. Last mammography 04/11/2022 BI-RADS 1. She will follow up with [facility] as she will need an EGD colonoscopy this year; h/o Salomon's. GERD: stable on Dexilant. Food triggers: chili/wings. Denies painful or difficulty with swallowing. Cervical cancer screening: needs to complete; menopause; last dexa in 2019 + osteopenia. Encouraged Isabella to start calcium with vitamin D daily. Migraines-takes Maxalt as needed. Migraines per month: less than 4/mo. bilateral hand pain; more in R hand. No N/T, intermittent. OTC: IBU as needed. No dropping of objects. No weakness. Labs from December; A1c 5.9%. 8# weight gain since March Tobacco abuse -has been able to reduce to 1/2 pack day over last mo. has desire to quit smoking. + NRT patches AND gum in past AND successful Review of Systems Constitutional: recent weight gain, but no fever and no chills. Cardiovascular: no chest pain, no palpitations, no lower extremity edema and no shortness of breath. Respiratory: no cough, no dyspnea with exertion, no dyspnea at rest and no wheezing. Gastrointestinal: heartburn, but n (more content not included)... Normal [employer] Tobacco Screening.on 023 Adult depression screening assessment No -[facility] Work Phone: Fall risk assessment a) No falls within the last year -[facility] Work Phone: Tobacco use status CPHS a) Yes MP-[facility] Work Phone: OPIATE/OPIOID/BENZO EXTENDED PRESCRIPTION COMPLIANCEon 03-29-2022 6-ACETYLMORPHINE <25 Normal Cutoff <25 [facility] Comment on above: Performed By: #### D SBOP #### [facility] [address] [place] [address] 7-AMINOCLONAZEPAM <25 Normal Cutoff <25 [facility] Comment on above: Performed By: #### D SBOP #### [facility] [address] [place] [address] ALPHA-HYDROXYALPRAZOL AM <25 Normal Cutoff <25 [facility] Comment on above: Performed By: #### D SBOP #### [facility] [address] [place] [address] ALPHA-HYDROXYMIDAZOLA M <25 Normal Cutoff <25 [facility] Comment on above: Performed By: #### D SBOP #### [place] [address] [place] [address] ALPRAZOLAM <25 Normal Cutoff <25 [facility] Comment on above: Performed By: #### D SBOP #### [facility] [address] [place] [address] CHLORDIAZEPOXIDE <25 Normal Cutoff <25 [facility] Comment on above: Performed By: #### D SBOP #### [facility] [address] [place] [address] CLONAZEPAM <25 Normal Cutoff <25 [facility] Comment on above: Performed By: #### D SBOP #### [facility] [address] [place] [address] CODEINE <50 Normal Cutoff <50 [facility] Comment on above: Performed By: #### D SBOP #### [facility] [address] [place] [address] DIAZEPAM <25 Normal Cutoff <25 [facility] Comment on above: Performed By: #### D SBOP #### [facility] [address] [place] [address] EDDP,U <25 Normal Cutoff <25 [facility] Comment on above: Result Comment: The performance characteristics of the Methadone Confirmation, Urine has been validated by the individual laboratory site where testing is performed. It has not been cleared or approved by the FDA. However the FDA has determined that such clearance or approval is not necessary. Our Laboratory is certified under the Clinical Laboratory Improvement Amendments of 1988 (CLIA) as qualified to perform high complexity clinical laboratory testing. Performed By: #### D SBOP #### [facility] [address] [place] [address] FENTANYL CONFIRM,U <2.5 Normal Cutoff<2.5 [facility] Comment on above: Performed By: #### D SBOP #### [facility] [address] [place] [address] HYDROCODONE <25 Normal Cutoff <25 [facility] Comment on above: Performed By: #### D SBOP #### [facility] [address] [place] [address] HYDROMORPHONE <25 Normal Cutoff <25 [facility] Comment on above: Performed By: #### D SBOP #### [facility] [address] [place] [address] LORAZEPAM 555 ng/mL Abnormal Cutoff <25 [facility] Comment on above: Result Comment: Cons istent with use of a drug containing lorazepam, such as Ativan. Performed By: #### D SBOP #### [facility] [address] [place] [address] METHADONE,U <25 Normal Cutoff <25 [facility] Comment on above: Performed By: #### D SBOP #### [facility] [address] [place] [address] MIDAZOLAM <25 Normal Cutoff <25 [facility] Comment on above: Performed By: #### D SBOP #### [facility] [address] [place] [address] MORPHINE <50 Normal Cutoff <50 [facility] Comment on above: Performed By: #### D SBOP #### [facility] [address] [place] [address] NORDIAZEPAM <25 Normal Cutoff <25 [facility] Comment on above: Performed By: #### D SBOP #### [facility] [address] [place] [address] NORFENTANYL CONFIRM,U <2.5 Normal Cutoff<2.5 [facility] Comment on above: Result Comment: The performance characteristics of the Fentanyl Confirmation, Urine has been validated by the individual laboratory site where testing is performed. It has not been cleared or approved by the FDA. However the FDA has determined that such clearance or approval is not necessary. Our Laboratory is certified under the Clinical Laboratory Improvement Amendments of 1988 (CLIA) as qualified to perform high complexity clinical laboratory testing. Performed By: #### D SBOP #### [facility] [address] [place] [address] NORHYDROCODONE <25 Normal Cutoff <25 [facility] Comment on above: Performed By: #### D SBOP #### [facility] [place] [id number] [place] [address] NOROXYCODONE <25 Normal Cutoff <25 [facility] Comment on above: Performed By: #### D SBOP #### [facility] [address] [place] [address] O-DESMETHYLTRAMADOL,U <50 Normal Cutoff <50 [facility] Comment on above: Result Comment: The performance characteristics of the Tramadol Confirmation, Urine has been validated by the individual laboratory site where testing is performed. It has not been cleared or approved by the FDA. However the FDA has determined that such clearance or approval is not necessary. Our Laboratory is certified under the Clinical Laboratory Improvement Amendments of 1988 (CLIA) as qualified to perform high complexity clinical laboratory testing. Performed By: #### D SBOP #### [facility] [address] [place] [address] OXAZEPAM <25 Normal Cutoff <25 [facility] Comment on above: Performed By: #### D SBOP #### [facility] [address] [place] [address] OXYCODONE <25 Normal Cutoff <25 [facility] Comment on above: Performed By: #### D SBOP #### [facility] [address] [place] [address] OXYMORPHONE <25 Normal Cutoff <25 [facility] Comment on above: Result Comment: The performance characteristics of the Opiate Confirmation, Urine has been validated by the individual laboratory site where testing is performed. It has not been cleared or approved by the FDA. However the FDA has determined that such clearance or approval is not necessary. Our Laboratory is certified under the Clinical Laboratory Improvement Amendments of 1988 (CLIA) as qualified to perform high complexity clinical laboratory testing. Performed By: #### D SBOP #### [facility] [address] [place] [address] TEMAZEPAM <25 Normal Cutoff <25 [facility] Comment on above: Result Comment: The performance characteristics of the Benzodiazepine Confirmation, Urine has been validated by the individual laboratory site where testing is performed. It has not been cleared or approved by the FDA. However the FDA has determined that such clearance or approval is not necessary. Our Laboratory is certified under the Clinical Laboratory Improvement Amendments of 1988 (CLIA) as qualified to perform high complexity clinical laboratory testing. Performed By: #### D SBOP #### [facility] [address] [place] [address] TRAMADOL CONFIRM,U <50 Normal Cutoff <50 [facility] Comment on above: Performed By: #### D SBOP #### [facility] [address] [place] [address] ZOLPIDEM METABOLITE[ZCA] ,U <25 Normal Cutoff <25 [facility] Comment on above: Result Comment: The performance characteristics of the Zolpidem Confirmation, Urine has been validated by the individual laboratory site where testing is performed. It has not been cleared or approved by the FDA. However the FDA has determined that such clearance or approval is not necessary. Our Laboratory is certified under the Clinical Laboratory Improvement Amendments of 1988 (CLIA) as qualified to perform high complexity clinical laboratory testing. Performed By: #### D SBOP #### [facility] [address] [place] [address] ZOLPIDEM,URINE <25 Normal Cutoff <25 [facility] Comment on above: Performed By: #### D SBOP #### [facility] [address] [place] [id number] OPIATE/OPIOID/BENZO EXTENDED PRESCRIPTION COMPLIANCEon 03-24-2022 AMPHETAMINE SCREEN,U Negative Normal NEGATIVE [facility] Comment on above: Result Comment: CUTO FF LEVEL: 500 NG/ML Cross-reactivity has been reported with high concentrations of the following drugs: buproprion, chloroquine, chlorpromazine, ephedrine, mephentermine, fenfluramine, phentermine, phenylpropanolamine, pseudoephedrine, and propranolol. Performed By: #### D SBOP #### [facility] [address] [place] [address] BARBITURATES SCREEN,U Negative Normal NEGATIVE [facility] Comment on above: Result Comment: CUTO FF LEVEL: 200 NG/ML Performed By: #### D SBOP #### [facility] [address] [place] [id number] CANNABINOIDS SCREEN,U Negative Normal NEGATIVE [facility] Comment on above: Result Comment: CUTO FF LEVEL: 50 NG/ML Performed By: #### D SBOP #### [facility] [address] [place] [id number] COCAINE METABOLITE SCREEN,U Negative Normal NEGATIVE [facility] Comment on above: Result Comment: CUTO FF LEVEL: 150 NG/ML Performed By: #### D SBOP #### [facility] [address] [place] [address] Creatinine [Mass/Vol] 142.5 mg/dL Normal [facility] Comment on above: Result Comment: A ur ine creatinine result >= 20 mg/dL is considered valid without suspicion of dilution. Samples with results below this range will automatically reflex to specific gravity testing to verify specimen integrity. Performed By: #### D SBOP #### [facility] [address] [place] [address] DRUG SCREEN COMMENT. SEE BELOW Normal [facility] Comment on above: Result Comment: Drug screen results are presumptive and should not be used to assess compliance with prescribed medication. Definitive confirmatory drug testing has been added to this sample for any positive screen result and will be reported separately. . Toxicology screening results are reported qualitatively. The concentration must be greater than or equal to the cutoff to be reported as positive. The concentration at which the screening test can detect an individual drug or metabolite varies. The absence of expected drug(s) and/or drug metabolite(s) may indicate non-compliance, inappropriate timing of specimen collection relative to drug administration, poor drug absorption, diluted/adulterated urine, or limitations of testing. For medical purposes only; not valid for forensic use. . Interpretive questions should be directed to the laboratory medical directors. Performed By: #### D SBOP #### [facility] [address] [place] [address] PCP SCREEN,U Negative Normal NEGATIVE [facility] Comment on above: Result Comment: CUTO FF LEVEL: 25 NG/ML Cross-reactivity has been reported with dextromethorphan. Performed By: #### D SBOP #### [facility] [address] [place] [address] Laboratory - Chemistry and C hemistry - challengeon 03-23-2022 Creatinine (Body fld) [Mass/Vol] 142.5 mg/dL [facility] [place] [facility] Work Phone: Comment on above: A urine creatinine r esult >= 20 mg/dL is considered valid without suspicion of dilution. Samples with results below this range will automatically reflex to specific gravity testing to verify specimen integrity. Laboratory - Drug toxicology on 03-23-2022 Amphetamines Screen Ql (U) Negative NEGATIVE [facility] Work Phone: Comment on above: CUTOFF LEVEL: 500 NG /ML Cross-reactivity has been reported with high concentrations of the following drugs: buproprion, chloroquine, chlorpromazine, ephedrine, mephentermine, fenfluramine, phentermine, phenylpropanolamine, pseudoephedrine, and propranolol. Barbiturates Screen Ql (U) Negative NEGATIVE [facility] Work Phone: Comment on above: CUTOFF LEVEL: 200 NG /ML Benzoylecgonine Screen Ql (U) Negative NEGATIVE [facility] Work Phone: Comment on above: CUTOFF LEVEL: 150 NG /ML Cannabinoids Screen Ql (U) Negative NEGATIVE -[facility] [place] [facility] Work Phone: Comment on above: CUTOFF LEVEL: 50 NG/ ML Phencyclidine Ql (U) Negative NEGATIVE [facility] Work Phone: Comment on above: CUTOFF LEVEL: 25 NG/ ML Cross-reactivity has been reported with dextromethorphan. No Panel Informationon 03-23 SEE BELOW -[facility] Work Phone: Comment on above: Drug screen results are presumptive and should not be used to assess compliance with prescribed medication. Definitive confirmatory drug testing has been added to this sample for any positive screen result and will be reported separately. .Toxicology screening results are reported qualitatively. The concentration must be greater than or equal to the cutoff to be reported as positive. The concentration at which the screening test can detect an individual drug or metabolite varies. The absence of expected drug(s) and/or drug metabolite(s) may indicate non-compliance, inappropriate timing of specimen collection relative to drug administration, poor drug absorption, diluted/adulterated urine, or limitations of testing. For medical purposes only; not valid for forensic use. .Interpretive questions should be directed to the laboratory medical directors. Office Visit (Primary Care T xt/Forms)on 03-23-2022 Follow-up visit Diagnoses/Problems Assessed Anxiety (300.00) (F41.9) Migraine with aura and without status migrainosus, not intractable (346.00) (G43.109) Morbid obesity with BMI of 45.0-49.9, adult (278.01,V85.42) (E66.01,Z68.42) Wheezing (786.07) (R06.2) Acute non-recurrent frontal sinusitis (461.1) (J01.10) Orders Acute non-recurrent frontal sinusitis Start: Amoxicillin 500 MG Oral Capsule; TAKE 1 CAPSULE 3 TIMES DAILY UNTIL GONE Anxiety OPIATE/OPIOID/BENZO [EXTENDED] PRESCRIPTION COMPLIANCE; Status:Active - Retrospective By Protocol Authorization; Requested for:23Mar2022; Wheezing Start: predniSONE 20 MG Oral Tablet; TAKE 2 TABLET Daily Renew: Albuterol Sulfate HFA 108 (90 Base) MCG/ACT Inhalation Aerosol Solution; INHALE 2 PUFFS EVERY 4-6 HOURS NEEDED Provider Impressions Provider Impressions Free Text Note Form: Discontinue Augmentin changed to amoxicillin 500 mg by mouth 3 times per day x10 days Prednisone 40 mg by mouth daily x5 days if needed for wheezing Refill albuterol 2 puffs every 4-6 hours as needed for shortness of breath cough wheezing Discussed with Isabella trying to reduce her lorazepam to one half-1 tablet daily for anxiety RTC 3 months for controlled substance visit Time Code: 1. Preparation for patient's visit (reviewing chart, current medical record, outside health provider records, previous history, exam, test, procedure, and medications) 2. Fpbe-cr-Unuu encounter obtaining history from patient/family/caregiv ers; performing evaluation and exam; ordering tests or procedures; referring and communicating with other health care providers; counseling and education of the patient/family/caregiv ers; independently interpreting results (tests, labs, procedures, imaging) and communicating and explaining results to the patient/family/caregiv ers 3. Coordination of care; preparing and printing discharge instructions and any educational material for the patient/family/caregiv ers. Documenting clinical information into the electronic medical record 4. Reviewing OARRS as needed MDM: 1) complexity: more than 1 stable chronic condition addressed or 1 acute illness addressed. 2) Data: tests interpreted and/or ordered, took independent history or records reviewed. 3) Risk: moderate risk due to nature of medical conditions/comorbidity or medications ordered or surgical or procedural referral Chief Complaint CSA/UDS History of Present Illness I have personally reviewed the OARRS report for CAROLYN PARNELL. I have considered the risks of abuse, dependence, addiction and diversion. Is the patient prescribed a combination of a benzodiazepine and opioid? No. Last urine drug screening date/ordered today: 03/23/2022 Controlled Substance Agreement: I have printed this form and reviewed each line item with the patient and the patient has verbalized understanding. Date of the last Controlled Substance Agreement: 03/23/2022 BENZODIAZEPINES What is the patient?s goal of therapy? REDUCE ANXIETY. Is this being achieved with current treatment? YES. RAFAELA-7 1. Feeling nervous, anxious or on edge- nearly every day 2. Not being able to stop or control worrying - nearly every day 3. Worrying too much about different things - nearly every day 4. Trouble relaxing - nearly every day 5. Being so restless that it is hard to sit still - nearly every day 6. Becoming easily annoyed or irritable - more than half the days 7. Feeling afraid as if something awful might happen - several days Activities of Daily Living: Yes, it is my opinion that this patient is benefitting from benzodiazepine therapy. Physical functioning: Better Family relationships: Better Social relationships: Better Mood: Same Sleep patterns: Same Overall functioning: Better Current or Past Use of Non-Controlled Medication: Serotonin Reuptake Inhibitor (SSRI). OD Risk Score: 280 Taking lorazepam daily; discussed limited role of benzodiazepines for treating chronic anxiety. She states her anxiety has been doing well and takes her lorazepam every evening before bed. She will try to reduce her lorazepam to a half a tablet daily as able. If feels anxiety is worse on one day she may take the whole tablet. Last refill 03/13/2022 went to urgent care on Sunday AND dx w/ sinus infection AND placed on Augmentin which caused diarrhea. + wheezing. Albuterol: only increased use since Sunday, otherwise uses infreq. + sinus DUMONT. Diarrhea better now off antibiotic. COVID negative. Saw GI AND is recommended for an EGD AND colonoscopy next yr w/ dr. Cm in [place]. No chg in bowel habits/melena/abd pain/dyspepsia. migraines- uses maxalt as needed less than 3 migraines in last 3 MO Review of Systems ENT: nasal discharge, nasal congestion, post nasal drip and sinus pressure, but no ear pain and no sore throat. Respiratory: cough, wheezing and coughing up sputum. Gastrointestinal: diarrhea, but no abdominal pain, no nausea, no blood in stools and no vomiting. Int (more content not included)... Normal [employer] Tobacco Screening.on 022 Fall risk assessment a) No falls within the last year [employer] [facility] Work Phone: Tobacco use status [facility] a) Yes [employer] [facility] Work Phone: Falls Screening (Age 18+)on 12-22-2021 Fall risk assessment a) No falls within the last year [employer] [facility] Work Phone: Tobacco use status [facility] a) Yes [facility] Work Phone: Office Visit (Primary Care T xt/Forms)on 12-22-2021 Follow-up visit Diagnoses/Problems Health Maintenance/Risks Encounter for preventive health examination (V70.0) (Z00.00) Assessed Anxiety (300.00) (F41.9) Migraine with aura and without status migrainosus, not intractable (346.00) (G43.109) Prediabetes (790.29) (R73.03) Morbid obesity with BMI of 45.0-49.9, adult (278.01,V85.42) (E66.01,Z68.42) Hyperlipemia (272.4) (E78.5) Orders Anxiety Renew: LORazepam 1 MG Oral Tablet; TAKE 1 TABLET AT BEDTIME NEEDED Health Maintenance Recorded Hemoglobin A1C; Status:Resulted - Requires Verification; Done: [id number] 12:00AM Hyperlipemia Renew: Rosuvastatin Calcium 10 MG Oral Tablet; TAKE 1 TABLET EVERY OTHER DAY Recorded Lipid Panel; Status:Resulted - Requires Verification; Done: [id number] 12:00AM Hypertension Renew: Lisinopril-hydroCHLORO thiazide 10-12.5 MG Oral Tablet; Take 1 tablet daily Migraine with aura and without status migrainosus, not intractable Start: Rizatriptan Benzoate 10 MG Oral Tablet; TAKE 1 TABLET AT ONSET OF HEADACHE. MAY REPEAT EVERY 2 HOURS NEEDED. MAXIMUM 3 TABLETS IN 24 HOURS Wheezing Renew: Albuterol Sulfate HFA 108 (90 Base) MCG/ACT Inhalation Aerosol Solution; INHALE 2 PUFFS EVERY 4-6 HOURS NEEDED Provider Impressions Provider Impressions Free Text Note Form: RTC 3 months controlled substance visit Refill albuterol as needed for wheezing Maxalt 10 mg at onset of headache may repeat in 2 hours if remains with no headache. No more than 3 tablets in 24-hour time Discussed weight loss w/ 30' physical activity most days of the week. Discussed an eating plan with avoidance of foods high in saturated/trans fats, limit sugar-sweetened beverages/foods AND an emphasis on vegetable/fruit/whole grain consumption. Choose low-fat dairy products, fish, poultry, beans AND nuts. [employer] [place]. Time Code: 1. Preparation for patient's visit (reviewing chart, current medical record, outside health provider records, previous history, exam, test, procedure, and medications) 2. Btop-cn-Bgoc encounter obtaining history from patient/family/caregiv ers; performing evaluation and exam; ordering tests or procedures; referring and communicating with other health care providers; counseling and education of the patient/family/caregiv ers; independently interpreting results (tests, labs, procedures, imaging) and communicating and explaining results to the patient/family/caregiv ers 3. Coordination of care; preparing and printing discharge instructions and any educational material for the patient/family/caregiv ers. Documenting clinical information into the electronic medical record 4. Reviewing OARRS as needed MDM: 1) complexity: more than 1 stable chronic condition addressed or 1 acute illness addressed. 2) Data: tests interpreted and/or ordered, took independent history or records reviewed. 3) Risk: moderate risk due to nature of medical conditions/comorbidity or medications ordered or surgical or procedural referral Chief Complaint MIGRAINES X 1 A WEEK. History of Present Illness I have personally reviewed the OARRS report for CAROLYN PARNELL. I have considered the risks of abuse, dependence, addiction and diversion. Is the patient prescribed a combination of a benzodiazepine and opioid? No. Last urine drug screening date/ordered today: 03/14/2021 Results of last screen: Results as expected. Controlled Substance Agreement: I have printed this form and reviewed each line item with the patient and the patient has verbalized understanding. Date of the last Controlled Substance Agreement: 03/14/21 BENZODIAZEPINES What is the patient?s goal of therapy? LESSEN ANXIETY. Is this being achieved with current treatment? YES. RAFAELA-7 1. Feeling nervous, anxious or on edge- nearly every day 2. Not being able to stop or control worrying - nearly every day 3. Worrying too much about different things - nearly every day 4. Trouble relaxing - nearly every day 5. Being so restless that it is hard to sit still - nearly every day 6. Becoming easily annoyed or irritable - several days 7. Feeling afraid as if something awful might happen - several days Activities of Daily Living: Yes, it is my opinion that this patient is benefitting from benzodiazepine therapy. Current or Past Use of Non-Controlled Medication: Serotonin Reuptake Inhibitor (SSRI). Isabella comes to the office for a 3-month controlled substance office visit. migraines -having 1-2/wk; taking excredrin migraine -which helps but she is concerned regarding the aspirin content in the Excedrin Migraine with her GERD. Her migraines mostly occur in the morning and she notes feeling tired and phonophobia prior to the onset of the headache. Becomes nauseated with these headaches but has no vomiting. Headache is located on top of the head or can be directly behind the eyes. Has a difficult time focusing and being able to stay at work into her job. She usually well lying in a dark room protocol washcloth on her forehead (more content not included)... Normal [employer] Absolute lymphocyte counton 12-05-2021 Lymphocytes Auto (Unsp spec) [#/Vol] 1.26 10*3/uL 0.83-4.51 [facility] Work Phone: Absolute reticulocyte counto n 12-05-2021 Reticulocytes (Bld) [#/Vol] 0.00 10*3/uL 0-5 [facility] Work Phone: Basophil percentageon 2021 Basophil percentage 3.0 mg/dL 2.5-4.9 [facility] Work Phone: Bilirubin [Mass/Vol] 0.50 mg/dL 0.20-1.00 [facility] Work Phone: Comment on above: For patients on eltr ombopag therapy, use of Dimension [place] TBIL is not recommended. Chloride [Moles/Vol] 100 mmol/L 98-107 [facility] Work Phone: Cholesterol [Mass/Vol] 150 mg/dL <200 [facility] Work Phone: Comment on above: <200 mg/dL Desirable 200-240 mg/dL Borderline >240 mg/dL High Risk Glucose [Mass/Vol] 96 mg/dL 74-106 [facility] Work Phone: Neutrophils (Bld) [#/Vol] 4.1 10*3/uL 2.0-7.7 [facility] Work Phone: Potassium [Moles/Vol] 3.9 mmol/L 3.5-5.1 [facility] Work Phone: Protein [Mass/Vol] 7.1 g/dL 6.4-8.2 [facility] Work Phone: Sodium [Moles/Vol] 137 mmol/L 136-145 [facility] Work Phone: Triglyceride [Mass/Vol] 106 mg/dL <199 [facility] Work Phone: Comment on above: The drugs N-Acetylcy steine and Metamizole may falsely depress this assay.Serum Triglycerides Reference Interval Normal <150 mg/dL Borderline high 150 - 199 mg/dL High 200 - 499 mg/dL Very High > or = 500 mg/dL WBC (Bld) [#/Vol] 5.9 10*3/uL 4.4-11.0 [facility] Work Phone: Bilirubin Test strip Ql (U)o n 12-05-2021 Bilirubin Ql (U) Negative Negative [facility] Work Phone: Blood erythrocytes count (nu mber/volume)on 12-05-2021 RBC (Bld) [#/Vol] 4.63 10*6/uL 4.2-5.4 [facility] Work Phone: Blood hemoglobin measurement (mass/volume)on 12-05-2021 Hemoglobin (Bld) [Mass/Vol] 14.4 g/dL 12.0-15.0 [facility] Work Phone: Blood platelet mean volumeon 12-05-2021 Platelet mean volume (Bld) [Entitic vol] 10.3 fL 6.2-12.0 [facility] Work Phone: Determination of erythrocyte mean corpuscular volume (MCV)on 12-05-2021 MCV (RBC) [Entitic vol] 94.6 fL 81-99 [facility] Work Phone: Direct bilirubinon 2 Bilirubin.direct [Mass/Vol] 0.09 mg/dL 0.00-0.30 [facility] Work Phone: Hematocrit Auto (Bld) [Volum e fraction]on 12-05-2021 Hematocrit (Bld) [Volume fraction] 43.8 % 37-47 [facility] Work Phone: Ketones Test strip Ql (U)on 12-05-2021 Ketones Ql (U) Negative Negative [facility] Work Phone: Laboratory - Chemistry and C hemistry - challengeon 12-05-2021 ALP [Catalytic activity/Vol] 59 U/L 45-117 [facility] Work Phone: [phone] ALT [Catalytic activity/Vol] 22 U/L 13-56 [facility] Work Phone: [phone] Cholesterol.total/Cho lesterol in HDL [Mass ratio] 2.60 {ratio} [facility] Work Phone: CO2 [Moles/Vol] 32.0 mmol/L 21.0-32.0 [facility] Work Phone: [phone] Cobalamin (Vitamin B12) [Mass/Vol] 450 pg/mL 211-911 [facility] Work Phone: [phone] Globulin (S) [Mass/Vol] 3.6 g/dL 2.2-4.2 [facility] Work Phone: [phone] Urea nitrogen/Creatinine [Mass ratio] 15.3 mg/mg 10-20 [facility] Work Phone: Laboratory - Hematology and Cell countson 12-05-2021 Erythrocyte distribution width (RBC) [Entitic vol] 43.0 fL 35.1-43.9 [facility] Work Phone: Erythrocyte distribution width (RBC) [Ratio] 12.3 % 11.6-14.6 [facility] Work Phone: [phone] MCH (RBC) [Entitic mass] 31.1 pg 27.0-32.0 [facility] Work Phone: [phone] Nucleated RBC/100 WBC (Bld) [Ratio] 0 % 0-5 [facility] Work Phone: HbA1c (Bld) [Mass fraction] 5.9 % [facility] Work Phone: MCHC Auto (RBC) [Mass/Vol]on 12-05-2021 MCHC (RBC) [Mass/Vol] 32.9 g/dL 32-36 [facility] Work Phone: Nitrite Test strip Ql (U)on 12-05-2021 Nitrite Ql (U) Negative Negative [facility] Work Phone: No Panel Informationon 12-05 Estimated GFR (MDRD) Amer 107 mL/min >60 [facility] Work Phone: Comment on above: GFR Calc Estimated GFR (MDRD) Non-Af Amer 88 mL/min >60 [facility] Work Phone: Comment on above: Non- GFR Calc Thyroid Stimulating Hormone (TSH) 0.58 uIU/mL 0.358-3.74 [facility] Work Phone: Platelets bldon 12-05-2021 Platelets (Bld) [#/Vol] 226 10*3/uL 150-450 [facility] Work Phone: Protein Test strip Ql (U)on 12-05-2021 Protein Ql (U) Negative Negative [facility] Work Phone: Segmented neutrophils/100 WB C Auto (Bld)on 12-05-2021 Segmented neutrophils/100 WBC (Bld) 68.4 % 47-70 [facility] Work Phone: Serum or plasma albumin murtaza urement (mass/volume)on 12-05-2021 Albumin [Mass/Vol] 3.5 g/dL 3.2-5.0 [facility] Work Phone: Serum or plasma albumin/glob ulin mass ratioon 12-05-2021 Albumin/Globulin [Mass ratio] 1.0 {ratio} 0.9-2.4 [facility] Work Phone: Serum or plasma calcium murtaza urement (mass/volume)on 12-05-2021 Calcium [Mass/Vol] 9.0 mg/dL 8.5-10.1 [facility] Work Phone: Serum or plasma cholesterol in HDL measurement (mass/volume)on 12-05-2021 Cholesterol in HDL [Mass/Vol] 58 mg/dL >40 [facility] Work Phone: Comment on above: The drugs N-Acetylcy steine and Metamizole may falsely depress this assay. Reference Range HDL <40 mg/dL Low HDL Cholesterol HDL >or= 60 mg/dL High HDL Cholesterol Serum or plasma cholesterol in VLDL measurement (mass/volume)on 12-05-2021 Cholesterol in VLDL [Mass/Vol] 21 mg/dL 5-40 [facility] Work Phone: Serum or plasma creatinine m easurement (mass/volume)on 12-05-2021 Creatinine [Mass/Vol] 0.72 mg/dL 0.55-1.02 [facility] Work Phone: Comment on above: The validity of the calculated GFR & GFRAA in patients over 70 years has not been determined. Clinical correlation is essential. Serum or plasma low density lipoprotein (LDL) cholesterol measurement (mass/volume)on 12-05-2021 Cholesterol in LDL [Mass/Vol] 71 mg/dL 0-130 [facility] Work Phone: Serum or plasma urea nitroge n measurement (mass/volume)on 12-05-2021 Urea nitrogen [Mass/Vol] 11 mg/dL 7-18 [facility] Work Phone: Serum or plasma uric acid me asurement (mass/volume)on 12-05-2021 Urate [Mass/Vol] 5.2 mg/dL 2.6-6.0 [facility] Work Phone: Comment on above: The drugs N-Acetylcy steine and Metamizole may falsely depress this assay. Thin prep Papanicolaou smear with manual screeningon 12-05-2021 Thin prep Papanicolaou smear with manual screening 17 U/L 15-37 [facility] Work Phone: Thin prep Papanicolaou smear with manual screening 5 5-15 [facility] Work Phone: Thin prep Papanicolaou smear with manual screening 198 U/L 84-246 [facility] Work Phone: Urine blood detectionon 11-21 RBC Ql (U) Negative Negative [facility] Work Phone: Urine clarityon 12-05-2021 Clarity (U) Clear Clear [facility] Work Phone: Urine color determinationon 12-05-2021 Color (U) Straw Yellow [facility] Work Phone: Urine glucose detectionon Glucose Ql (U) Normal mg/dl Normal [facility] Work Phone: Urine leukocyte esterase det ection by dipstickon 12-05-2021 Leukocyte esterase Test strip Ql (U) Negative Negative [facility] Work Phone: Urine pHon 12-05-2021 pH (U) 7.0 [pH] 5.0 - 8.0 [facility] Work Phone: Urine specific gravity measu rementon 12-05-2021 Specific gravity (U) [Rel density] 1.005 1.002-1.030 [facility] Work Phone: Urobilinogen Auto test strip Ql (U)on 12-05-2021 Urobilinogen Ql (U) Normal mg/dl Normal [facility] Work Phone: Whole blood hemoglobin A1c/t otal hemoglobin ratio (mass fraction)on 12-05-2021 HbA1c (Bld) [Mass fraction] 5.9 % 3.8-5.6 [facility] Work Phone: Comment on above: Normal < 5.7 % Predi abetic 5.7 - 6.4 % Diabetic >or= 6.5 % Please note range changes. Laboratory - Chemistry and C hemistry - challengeon 11-04-2021 Cholesterol [Mass/Vol] 150 mg/dL -[employer] [facility] Work Phone: Cholesterol in LDL [Mass/Vol] 71 mg/dL [employer] [facility] Work Phone: No Panel Informationon 11-04 106 1 [employer] [facility] Work Phone: [phone] [address] Work Phone: Office Visit (Primary Care T xt/Forms)on 09-08-2021 Follow-up visit Diagnoses/Problems Assessed Anxiety (300.00) (F41.9) Positive screening for depression on 2-item Patient Health Questionnaire (PHQ-2) (V79.0) (Z13.31) Wheezing (786.07) (R06.2) Weight gain (783.1) (R63.5) Fatigue (780.79) (R53.83) Hyperlipemia (272.4) (E78.5) Orders Anxiety Renew: LORazepam 1 MG Oral Tablet; TAKE 1 TABLET AT BEDTIME NEEDED Fatigue Complete Blood Count; Status:Active; Requested for:08Sep2021; Comprehensive Metabolic Panel; Status:Active; Requested for:08Sep2021; TSH WITH REFLEX TO FREE T4 IF ABNORMAL; Status:Active; Requested for:08Sep2021; Vitamin B12, Serum; Status:Active; Requested for:08Sep2021; Hyperlipemia Lipid Panel; Status:Active; Requested for:08Sep2021; Weight gain Hemoglobin A1C; Status:Active; Requested for:08Sep2021; Wheezing Start: Albuterol Sulfate HFA 108 (90 Base) MCG/ACT Inhalation Aerosol Solution; INHALE 2 PUFFS EVERY 4-6 HOURS NEEDED Provider Impressions Provider Impressions Free Text Note Form: RTC 3 months Check CBC, CMP, lipid panel, TSH, hgb Aic and B12 I have counselled patient about need for smoking/tobacco cessation and how I can support efforts when patient is ready to quit. Discussed Nicotine replacement patches,Varenicline, bupropion, hypnosis, support groups AND acupuncture as potential options. Will consider and discuss in 3 months She will call [facility] Lou[facility] Taylor, to arrange for colonoscopy Recommend cervical cancer screening Time Code: 1. Preparation for patient's visit (reviewing chart, current medical record, outside health provider records, previous history, exam, test, procedure, and medications) 2. Pbbi-lp-Rcfd encounter obtaining history from patient/family/caregiv ers; performing evaluation and exam; ordering tests or procedures; referring and communicating with other health care providers; counseling and education of the patient/family/caregiv ers; independently interpreting results (tests, labs, procedures, imaging) and communicating and explaining results to the patient/family/caregiv ers 3. Coordination of care; preparing and printing discharge instructions and any educational material for the patient/family/caregiv ers. Documenting clinical information into the electronic medical record 4. Reviewing OARRS as needed MDM: 1) complexity: more than 1 stable chronic condition addressed or 1 acute illness addressed. 2) Data: tests interpreted and/or ordered, took independent history or records reviewed. 3) Risk: moderate risk due to nature of medical conditions/comorbidity or medications ordered or surgical or procedural referral Chief Complaint 3MO CS CHK History of Present Illness Isabella comes to the office for 3-month controlled substance office visit. CSA signed on: 03/14/21 I have printed this form and reviewed each line item with the patient and the patient has verbalized understanding. Urine Drug Screen completed: 03/14/21. Takes lorazepam most days of week (usually can skip a day) as needed. last fill 08/11/21 RAFAELA-7 Score: 12 OD Risk Score:380 Patient Pain Scale: n/a I have personally reviewed the OARRS report for this patient. I have considered the risks of abuse, dependence, addiction and diversion. I believe that it is clinically appropriate for this patient to be prescribed this medication based on the documented diagnosis. HX of referrals/Alternatives : Currently on Lexapro. No longer attending counseling feels like she is doing OK sleep: fair. wakes up several times throughout the night. Colonoscopy 2011- repeat 10Y, goes through [facility] will be done this year. She will contact that office to arrange Mammogram BI-RADS 1 from February 2021; Up to date Cervical cancer screening: Reviewed [place] PTF guidelines for screening and recommended. Testing can be completed here at this office or she may self refer to an LEAD PROGRAMMER ANALYST of her choice. Mother had vulvar cancer. + tobacco abuse-has smoked for several years. Was able to quit for short period time and then when her father she resumes smoking. She knows she needs to quit but is not ready just yet. Is hoping to be ready by the next office visit in approximately 3 months. In the past she has used nicotine replacement patches to aid in her success. Review of Systems Constitutional: no fever and no chills. Eyes:. wears glasses. ENT: no ear pain, no sore throat and no hoarseness. Cardiovascular: no chest pain, no palpitations and no lower extremity edema. Respiratory: wheezing, but no cough and no dyspnea at rest. Gastrointestinal: no abdominal pain, no constipation, no diarrhea, no heartburn, no blood in stools and no dysphagia. Musculoskeletal: joint pain localized to one or more joints, but no arthralgias, no myalgias and no back pain . L shoulder pain- chronic. Neurological: no headache, no dizziness and no numbness or tingling. Psychiatric: sleep disturbances, feelings of anxiety and feelings of depression, but no mood changes and no substance use. Acti (more content not included)... Normal [employer] Tobacco Screening.on 022 Adult depression screening assessment Yes [employer] [facility] [email or web address] Phone: Adult depression screening assessment No [employer] [facility] [email or web address] Phone: Fall risk assessment a) No falls within the last year [employer] [facility] Work Phone: Tobacco use status CP a) Yes [facility] Work [facility]: Tobacco Screening. Yes [employer] [facility] Work Phone: Tobacco Screening.on 022 Adult depression screening assessment No [email or web address] Phone: Fall risk assessment a) No falls within the last year [email or web address] Phone: Tobacco use status CP a) Yes [employer] [facility] Work Phone: Tobacco Screening. Yes [employer] [facility] Work Phone: Laboratory - Chemistry and C hemistry - challengeon 03-14-2021 Creatinine (Body fld) [Mass/Vol] 57.3 mg/dL [facility] Work Phone: Comment on above: A urine creatinine r esult >= 20 mg/dL is considered valid without suspicion of dilution. Samples with results below this range will automatically reflex to specific gravity testing to verify specimen integrity. Laboratory - Drug toxicology on 03-14-2021 1-Hydroxymidazolam Confirm (U) [Mass/Vol] <25 Cutoff <25 [facility] Work Phone: 0-Aexafcrxof-8,5-Dime thyl-3,3-Diphenylpyrr olidine (EDDP) Confirm (U) [Mass/Vol] <25 Cutoff <25 [facility] [employer] [facility] Work Phone: Comment on above: The performance oscar acteristics of the Methadone Confirmation, Urine has been validated by the individual laboratory site where testing is performed. It has not been cleared or approved by the FDA. However the FDA has determined that such clearance or approval is not necessary. Our Laboratory is certified under the Clinical Laboratory Improvement Amendments of 1988 (CLIA) as qualified to perform high complexity clinical laboratory testing. 6-Monoacetylmorphine (6-NISHA) Confirm (U) [Mass/Vol] <25 Cutoff <25 [facility] Work Phone: 7-Aminoclonazepam Confirm (U) [Mass/Vol] <25 Cutoff <25 [facility] Work Phone: Alpha hydroxyalprazolam Confirm (U) [Mass/Vol] <25 Cutoff <25 [facility] Work Phone: ALPRAZolam Confirm (U) [Mass/Vol] <25 Cutoff <25 [facility] Work Phone: Amphetamines Screen Ql (U) Negative NEGATIVE [facility] Work Phone: Comment on above: CUTOFF LEVEL: 500 NG /ML Cross-reactivity has been reported with high concentrations of the following drugs: buproprion, chloroquine, chlorpromazine, ephedrine, mephentermine, fenfluramine, phentermine, phenylpropanolamine, pseudoephedrine, and propranolol. Barbiturates Screen Ql (U) Negative NEGATIVE [facility] Work Phone: Comment on above: CUTOFF LEVEL: 200 NG /ML Benzoylecgonine Screen Ql (U) Negative NEGATIVE [facility] Work Phone: Comment on above: CUTOFF LEVEL: 150 NG /ML Cannabinoids Screen Ql (U) Negative NEGATIVE [facility] Work Phone: Comment on above: CUTOFF LEVEL: 50 NG/ ML chlordiazePOXIDE Confirm (U) [Mass/Vol] <25 Cutoff <25 [facility] Work Phone: clonazePAM Confirm (U) [Mass/Vol] <25 Cutoff <25 [facility] Work Phone: Codeine Confirm (U) [Mass/Vol] <50 Cutoff <50 [facility] Work Phone: diazePAM Confirm (U) [Mass/Vol] <25 Cutoff <25 [facility] Work Phone: fentaNYL Confirm (U) [Mass/Vol] <2.5 Cutoff<2.5 [facility] Work Phone: HYDROcodone Confirm (U) [Mass/Vol] <25 Cutoff <25 [facility] Work Phone: HYDROmorphone Confirm (U) [Mass/Vol] <25 Cutoff <25 [facility] Work Phone: LORazepam Confirm (U) [Mass/Vol] <25 Cutoff <25 [facility] Work Phone: Methadone Confirm (U) [Mass/Vol] <25 Cutoff <25 [facility] Work Phone: Midazolam Confirm (U) [Mass/Vol] <25 Cutoff <25 [facility] Work Phone: Morphine Confirm (U) [Mass/Vol] <50 Cutoff <50 [facility] Work Phone: Nordiazepam Confirm (U) [Mass/Vol] <25 Cutoff <25 [facility] Work Phone: Norfentanyl Confirm (U) [Mass/Vol] <2.5 Cutoff<2.5 [facility] Work Phone: Comment on above: The performance oscar acteristics of the Fentanyl Confirmation, Urine has been validated by the individual laboratory site where testing is performed. It has not been cleared or approved by the FDA. However the FDA has determined that such clearance or approval is not necessary. Our Laboratory is certified under the Clinical Laboratory Improvement Amendments of 1988 (CLIA) as qualified to perform high complexity clinical laboratory testing. Norhydrocodone Confirm (U) [Mass/Vol] <25 Cutoff <25 [facility] Work Phone: Noroxycodone Confirm (U) [Mass/Vol] <25 Cutoff <25 [facility] Work Phone: Nortramadol (U) [Mass/Vol] <50 Cutoff <50 [facility] Work Phone: Comment on above: The performance oscar acteristics of the Tramadol Confirmation, Urine has been validated by the individual laboratory site where testing is performed. It has not been cleared or approved by the FDA. However the FDA has determined that such clearance or approval is not necessary. Our Laboratory is certified under the Clinical Laboratory Improvement Amendments of 1988 (CLIA) as qualified to perform high complexity clinical laboratory testing. Oxazepam Confirm (U) [Mass/Vol] <25 Cutoff <25 [facility] Work Phone: oxyCODONE Confirm (U) [Mass/Vol] <25 Cutoff <25 [facility] Work Phone: oxyMORphone Confirm (U) [Mass/Vol] <25 Cutoff <25 -[facility] Work Phone: Comment on above: The performance oscar acteristics of the Opiate Confirmation, Urine has been validated by the individual laboratory site where testing is performed. It has not been cleared or approved by the FDA. However the FDA has determined that such clearance or approval is not necessary. Our Laboratory is certified under the Clinical Laboratory Improvement Amendments of 1988 (CLIA) as qualified to perform high complexity clinical laboratory testing. Phencyclidine Ql (U) Negative NEGATIVE -[facility] Work Phone: Comment on above: CUTOFF LEVEL: 25 NG/ ML Cross-reactivity has been reported with dextromethorphan. Temazepam Confirm (U) [Mass/Vol] <25 Cutoff <25 [facility] Work Phone: Comment on above: The performance oscar acteristics of the Benzodiazepine Confirmation, Urine has been validated by the individual laboratory site where testing is performed. It has not been cleared or approved by the FDA. However the FDA has determined that such clearance or approval is not necessary. Our Laboratory is certified under the Clinical Laboratory Improvement Amendments of 1988 (CLIA) as qualified to perform high complexity clinical laboratory testing. traMADol Confirm (U) [Mass/Vol] <50 Cutoff <50 -[facility] Work Phone: Zolpidem (U) [Mass/Vol] <25 Cutoff <25 [facility] Work Phone: No Panel Informationon 03-14 SEE BELOW -[facility] Work Phone: Comment on above: Drug screen results are presumptive and should not be used to assess compliance with prescribed medication. Definitive confirmatory drug testing has been added to this sample for any positive screen result and will be reported separately. .Toxicology screening results are reported qualitatively. The concentration must be greater than or equal to the cutoff to be reported as positive. The concentration at which the screening test can detect an individual drug or metabolite varies. The absence of expected drug(s) and/or drug metabolite(s) may indicate non-compliance, inappropriate timing of specimen collection relative to drug administration, poor drug absorption, diluted/adulterated urine, or limitations of testing. For medical purposes only; not valid for forensic use. .Interpretive questions should be directed to the laboratory medical directors. <25 Cutoff <25 [employer] [facility] Work Phone: Comment on above: The performance oscar acteristics of the Zolpidem Confirmation, Urine has been validated by the individual laboratory site where testing is performed. It has not been cleared or approved by the FDA. However the FDA has determined that such clearance or approval is not necessary. Our Laboratory is certified under the Clinical Laboratory Improvement Amendments of 1988 (CLIA) as qualified to perform high complexity clinical laboratory testing. Tobacco Screening.on Fall risk assessment a) No falls within the last year [employer] [facility] Work Phone: Tobacco use status CPHS a) Yes [employer] [facility] Work Phone: Tobacco Screening. Yes [employer] [facility] Work Phone: Tobacco Screening.on Fall risk assessment a) No falls within the last year [employer] [facility] Work Phone: Tobacco use status CPHS a) Yes [employer] [facility] Work Phone: Tobacco Screening. Yes [employer] [facility] Work Phone: Tobacco Screening.on 021 Fall risk assessment a) No falls within the last year [employer] [facility] Work Phone: Tobacco use status CPHS a) Yes [employer] [facility] Work Phone: Tobacco Screening. Yes [employer] [facility] [email or web address] Phone: Tobacco Screening.on 021 Fall risk assessment a) No falls within the last year [employer] [facility] Work Phone: Tobacco use status CPHS a) Yes [employer] [facility] Work Phone: Vital Signs Date Time Vital Sign Value Performing Clinician Facility 01-26-2025 11:23-0400 Body height 170.2 cm Jose Daniel Wood [employer] SUPPORT CONSULTANT[employer] Work Phone: [facility] 01-26-2025 11:23-0400 Body mass index (BMI) [Ratio] 46.33 kg/m2 Jose Daniel Wood DESKTOP SUPPORT CONSULTANT-[employer] Work Phone: [facility] 01-26-2025 11:23-0400 Body weight 134.17 kg Jose Daniel Wood DESKTOP SUPPORT CONSULTANT-C[employer]CULAR [employer] Work Phone: [facility] 01-26-2025 11:23-0400 Diastolic blood pressure 82 mm[Hg] Jose Daniel Wood DESKTOP SUPPORT CONSULTANT-[employer] Work Phone: [facility] 01-26-2025 11:23-0400 Heart rate 83 /min Jose Daniel Wood [employer]KTOP SUPPORT CONSULTANT[employer] Work Phone: [facility] 01-26-2025 11:23-0400 SaO2% (BldA) [Mass fraction] 96 % Jose Daniel Wood DESKTOP SUPPORT CONSULTANT[employer] Work Phone: [facility] 01-26-2025 11:23-0400 Systolic blood pressure 126 mm[Hg] Jose Daniel Wood DESKTOP SUPPORT CONSULTANT-CIRC[employer] Work Phone: [facility] 04-17-2024 11:06-0500 Body height 170.2 cm Jose Daniel Wood DESKTOP SUPPORT CONSULTANT[employer] Work Phone: [facility] 04-17-2024 11:06-0500 Body mass index (BMI) [Ratio] 49.02 kg/m2 Jose Daniel Wood [employer]KTOP SUPPORT CONSULTANT[employer] Work Phone: [facility] 04-17-2024 11:06-0500 Body weight 141.98 kg Jose Daniel Wood DESKTOP SUPPORT CONSULTANT[employer] Work Phone: [facility] 04-17-2024 11:06-0500 Diastolic blood pressure 64 mm[Hg] Jose Daniel Wood DESKTOP SUPPORT CONSULTANT[employer] Work Phone: [facility] 04-17-2024 11:06-0500 Heart rate 95 /min Jose Daniel Wood DESKTOP SUPPORT CONSULTANT[employer] Work Phone: [facility] 04-17-2024 11:06-0500 SaO2% (BldA) [Mass fraction] 95 % Jose Daniel Mane DESKTOP SUPPORT CONSULTANT-[employer] Work Phone: [facility] 04-17-2024 11:06-0500 Systolic blood pressure 112 mm[Hg] Jose Daniel Mane DESKTOP SUPPORT CONSULTANT-CIRC[employer] Work Phone: [facility] 2023 15:06-0400 Body height 170.2 cm Jose Daniel Mane DESKTOP SUPPORT CONSULTANT[employer] Work Phone: [facility] 2023 15:06-0400 Body mass index (BMI) [Ratio] 46.64 kg/m2 Jose Daniel Mane DESKTOP SUPPORT CONSULTANT[employer] Work Phone: [facility] 2023 15:06-0400 Body weight 135.08 kg Jose Daniel Mane DESKTOP SUPPORT CONSULTANT-[employer] Work Phone: [facility] 2023 15:06-0400 Diastolic blood pressure 68 mm[Hg] Jose Daniel Mane DESKTOP SUPPORT CONSULTANT-C[employer] Work Phone: [facility] 2023 15:06-0400 Heart rate 92 /min Jose Daniel Mane DESKTOP SUPPORT CONSULTANT-CIRCULAR [employer] Work Phone: [facility] 2023 15:06-0400 SaO2% (BldA) [Mass fraction] 94 % Jose Daniel Mane DESKTOP SUPPORT CONSULTANT-C[employer]CULAR [employer] Work Phone: [facility] 2023 15:06-0400 Systolic blood pressure 120 mm[Hg] Jose Daniel Mane DESKTOP SUPPORT CONSULTANT-CIRCULAR [employer] Work Phone: [facility] 04-23-2023 15:31-0500 Body temperature 97.59 [degF] Cecile Gagnon RN Work Phone: [facility] 04-23-2023 15:31-0500 Diastolic blood pressure 80 mm[Hg] Cecile Gagnon RN Work Phone: [facility] 04-23-2023 15:31-0500 Heart rate 78 /min Cecile Chahalel RN Work Phone: [facility] 04-23-2023 15:31-0500 Respiratory rate 16 /min July Kalin WALDRON Work Phone: [facility] 04-23-2023 15:31-0500 SaO2% (BldA) [Mass fraction] 98 % July Kalin RN Work Phone: [facility] 04-23-2023 15:31-0500 Systolic blood pressure 122 mm[Hg] July Kalin RN Work Phone: [facility] 04-15-2023 09:11-0500 Body temperature 97.81 [degF] Ashtyn Winters RN Work Phone: [facility] 04-15-2023 09:11-0500 Body weight 113.4 kg Ashtyn Winters RN Work Phone: [facility] 04-15-2023 09:11-0500 Diastolic blood pressure 72 mm[Hg] Ashtyn Winters R N Work Phone: [facility] 04-15-2023 09:11-0500 Heart rate 72 /min Ashtyn Winters RN Work Phone: [facility] 04-15-2023 09:11-0500 Respiratory rate 20 /min Ashtyn Winters RN Work Phone: [facility] 04-15-2023 09:11-0500 SaO2% (BldA) [Mass fraction] 98 % Ashtyn Winters RN Work Phone: [facility] 04-15-2023 09:11-0500 Systolic blood pressure 124 mm[Hg] Ashtyn Winters RN Work Phone: [facility] 04-05-2023 13:24-0500 Body height 170.2 cm Jose Daniel CHEN Work Phone: [facility] 04-05-2023 13:24-0500 Body mass index (BMI) [Ratio] 39.17 kg/m2 Jose Daniel Mane APRN-MELONY Work Phone: [facility] 04-05-2023 13:24-0500 Body weight 113.44 kg Jose Daniel Mane DESKTOP SUPPORT CONSULTANT-CIRCULAR [employer]W [employer] FUSER Work Phone: [facility] 04-05-2023 13:24-0500 Diastolic blood pressure 76 mm[Hg] Jose Daniel Mane DESKTOP SUPPORT CONSULTANT-CIRCULAR [employer] FUSER Work Phone: [facility] 04-05-2023 13:24-0500 Heart rate 93 /min Jose Daniel Mane DESKTOP SUPPORT CONSULTANT-CIRCULAR [employer] FUSER Work Phone: [facility] 04-05-2023 13:24-0500 SaO2% (BldA) [Mass fraction] 95 % Jose Daniel Mane DESKTOP SUPPORT CONSULTANT-CIRCULAR [employer] FUSER Work Phone: [facility] 04-05-2023 13:24-0500 Systolic blood pressure 118 mm[Hg] Jose Daniel Mane DESKTOP SUPPORT CONSULTANT-CIRCULAR [employer] FUSER Work Phone: [facility] 04-04-2023 14:09-0500 Body temperature 98.01 [degF] Jumana Jalloh RN Work Phone: [facility] 04-04-2023 14:09-0500 Diastolic blood pressure 72 mm[Hg] Jumana Jalloh RN Work Phone: [facility] 04-04-2023 14:09-0500 Heart rate 83 /min Jumana Jalloh RN Work Phone: [facility] 04-04-2023 14:09-0500 Respiratory rate 18 /min Jumana Jalloh RN Work Phone: [facility] 04-04-2023 14:09-0500 SaO2% (BldA) [Mass fraction] 97 % Jumana Jalloh RN Work Phone: [facility] 04-04-2023 14:09-0500 Systolic blood pressure 126 mm[Hg] Jumana Jalloh RN Work Phone: [facility] 04-02-2023 13:57-0500 Body temperature 97.81 [degF] Marilee Weeks RN Work Phone: [facility] 04-02-2023 13:57-0500 Diastolic blood pressure 62 mm[Hg] Marilee Most RN Work Phone: [facility] 04-02-2023 13:57-0500 Heart rate 80 /min Marilee Most RN Work Phone: [facility] 04-02-2023 13:57-0500 Respiratory rate 16 /min Marilee Most RN Work Phone: [facility] 04-02-2023 13:57-0500 SaO2% (BldA) [Mass fraction] 98 % Marilee Most RN Work Phone: [facility] 04-02-2023 13:57-0500 Systolic blood pressure 110 mm[Hg] Marilee Most RN Work Phone: [facility] 03-26-2023 13:40-0500 Body temperature 97.59 [degF] Marilee Most RN Work Phone: [facility] 03-26-2023 13:40-0500 Diastolic blood pressure 72 mm[Hg] Marilee Most RN Work Phone: [facility] 03-26-2023 13:40-0500 Heart rate 76 /min Marilee Most RN Work Phone: [facility] 03-26-2023 13:40-0500 Respiratory rate 16 /min Marilee Most RN Work Phone: [facility] 03-26-2023 13:40-0500 SaO2% (BldA) [Mass fraction] 98 % Marilee Most RN Work Phone: [facility] 03-26-2023 13:40-0500 Systolic blood pressure 110 mm[Hg] Marilee Most RN Work Phone: [facility] 03-22-2023 18:18-0500 Body temperature 97.9 [degF] Laura Mac RN Work Phone: [facility] 03-22-2023 18:18-0500 Diastolic blood pressure 72 mm[Hg] Laura Mac RN Work Phone: [facility] 03-22-2023 18:18-0500 Heart rate 81 /min Laura Mac RN Work Phone: [facility] 03-22-2023 18:18-0500 Respiratory rate 16 /min Laura Mac RN Work Phone: [facility] 03-22-2023 18:18-0500 SaO2% (BldA) [Mass fraction] 98 % Laura Bubba RN Work Phone: [facility] 03-22-2023 18:18-0500 Systolic blood pressure 124 mm[Hg] Laura Mac RN Work Phone: [facility] 03-21-2023 12:36-0500 Body temperature 97.7 [degF] Marilee Weeks RN Work Phone: [facility] 03-21-2023 12:36-0500 Diastolic blood pressure 64 mm[Hg] Marilee Weeks RN Work Phone: [facility] 03-21-2023 12:36-0500 Heart rate 76 /min Marilee Weeks RN Work Phone: [facility] 03-21-2023 12:36-0500 Respiratory rate 16 /min Marilee Weeks RN Work Phone: [facility] 03-21-2023 12:36-0500 SaO2% (BldA) [Mass fraction] 99 % Marilee Weeks RN Work Phone: [facility] 03-21-2023 12:36-0500 Systolic blood pressure 110 mm[Hg] Marilee Weeks RN Work Phone: [facility] 03-18-2023 09:20-0500 Body temperature 98.6 [degF] Dr. Chineyre Quigley Work Phone: [facility] 03-18-2023 09:20-0500 Diastolic blood pressure 76 mm[Hg] Dr. Chinyere Quigley Work Phone: [facility] 03-18-2023 09:20-0500 Heart rate 111 /min Dr. Chinyere Quigley Work Phone: [facility] 03-18-2023 09:20-0500 Respiratory rate 14 /min Dr. Chinyere Quigley Work Phone: [facility] 03-18-2023 09:20-0500 SaO2% (BldA) [Mass fraction] 93 % Dr. Chinyere Quigley Work Phone: [facility] 03-18-2023 09:20-0500 Systolic blood pressure 126 mm[Hg] Dr. Chinyere Quigley Work Phone: [facility] 03-16-2023 11:27-0500 Body temperature 100.29 [degF] Marilee Most RN Work Phone: [facility] 03-16-2023 11:27-0500 Diastolic blood pressure 68 mm[Hg] Marilee Most RN Work Phone: [facility] 03-16-2023 11:27-0500 Heart rate 92 /min Marilee Most RN Work Phone: [facility] 03-16-2023 11:27-0500 Respiratory rate 16 /min Marilee Most RN Work Phone: [facility] 03-16-2023 11:27-0500 SaO2% (BldA) [Mass fraction] 98 % Marilee Most RN Work Phone: [facility] 03-16-2023 11:27-0500 Systolic blood pressure 118 mm[Hg] Marilee Most RN Work Phone: [facility] 03-14-2023 10:13-0500 Body temperature 97.7 [degF] Marilee Most RN Work Phone: [facility] 03-14-2023 10:13-0500 Diastolic blood pressure 78 mm[Hg] Marilee Most RN Work Phone: [facility] 03-14-2023 10:13-0500 Heart rate 72 /min Marilee Most RN Work Phone: [facility] 03-14-2023 10:13-0500 Respiratory rate 16 /min Marilee Most RN Work Phone: [facility] 03-14-2023 10:13-0500 SaO2% (BldA) [Mass fraction] 96 % Marilee Weeks RN Work Phone: [facility] 03-14-2023 10:13-0500 Systolic blood pressure 118 mm[Hg] Marilee Weeks RN Work Phone: [facility] 03-12-2023 13:05-0500 Body temperature 97.7 [degF] Laura Mac RN Work Phone: [facility] 03-12-2023 13:05-0500 Diastolic blood pressure 70 mm[Hg] Laura Mac RN Work Phone: [facility] 03-12-2023 13:05-0500 Heart rate 72 /min Laura Mac RN Work Phone: [facility] 03-12-2023 13:05-0500 Respiratory rate 16 /min Laura Mac RN Work Phone: [facility] 03-12-2023 13:05-0500 SaO2% (BldA) [Mass fraction] 96 % Laura Mac RN Work Phone: [facility] 03-12-2023 13:05-0500 Systolic blood pressure 128 mm[Hg] Laura Mac RN Work Phone: [facility] 03-09-2023 11:12-0500 Body temperature 97.59 [degF] Elroy Calvo DESKTOP SUPPORT CONSULTANT.CIRCULAR [employer]W [employer] FUSER Work Phone: [facility] 03-09-2023 11:12-0500 Diastolic blood pressure 66 mm[Hg] Elroy Calvo DESKTOP SUPPORT CONSULTANT.CIRCULAR [employer]W [employer] FUSER Work Phone: [facility] 03-09-2023 11:12-0500 Heart rate 88 /min Elroy Calvo DESKTOP SUPPORT CONSULTANT.CIRCULAR [employer] FUSER Work Phone: [facility] 03-09-2023 11:12-0500 Respiratory rate 18 /min Elroy Calvo DESKTOP SUPPORT CONSULTANT.CIRCULAR [employer]W [employer] FUSER Work Phone: [facility] 03-09-2023 11:12-0500 SaO2% (BldA) [Mass fraction] 91 % Elroy Calvo VERA.CIRCULAR SAW EDGE FUSER Work Phone: [facility] 03-09-2023 11:12-0500 Systolic blood pressure 95 mm[Hg] Elroy Calvo VERA.CIRCULAR SAW EDGE FUSER Work Phone: [facility] 03-07-2023 12:21-0500 Body temperature 97.7 [degF] Marileeelizabeth Weeks RN Work Phone: [facility] 03-07-2023 12:21-0500 Diastolic blood pressure 66 mm[Hg] Marileeelizabeth Weeks RN Work Phone: [facility] 03-07-2023 12:21-0500 Heart rate 72 /min Marileeelizabeth Weeks RN Work Phone: [facility] 03-07-2023 12:21-0500 Respiratory rate 16 /min Marilee Weeks RN Work Phone: [facility] 03-07-2023 12:21-0500 SaO2% (BldA) [Mass fraction] 98 % Marilee RN Work Phone: [facility] 03-07-2023 12:21-0500 Systolic blood pressure 124 mm[Hg] Marilee RN Work Phone: [facility] 03-05-2023 14:19-0500 Body temperature 98.1 [degF] Vicenta Alves RN Work Phone: [facility] 03-05-2023 14:19-0500 Diastolic blood pressure 78 mm[Hg] Vicenat Butchers RN Work Phone: [facility] 03-05-2023 14:19-0500 Heart rate 76 /min Vicenta Butchers RN Work Phone: [facility] 03-05-2023 14:19-0500 Respiratory rate 16 /min Vicenta Butchers RN Work Phone: [facility] 03-05-2023 14:19-0500 SaO2% (BldA) [Mass fraction] 98 % Vicenta Alves RN Work Phone: [facility] 03-05-2023 14:19-0500 Systolic blood pressure 122 mm[Hg] Vicenta Alves R N Work Phone: [facility] 03-01-2023 14:21-0500 Body temperature 97 [degF] Roxane Newbrough ENVIRONMENTAL SUSTAINABILITY MANAGER Work Phone: [facility] 03-01-2023 14:21-0500 Body weight 110.68 kg Roxane Newbrough ENVIRONMENTAL SUSTAINABILITY MANAGER Work Phone: [facility] 03-01-2023 14:21-0500 Diastolic blood pressure 68 mm[Hg] Roxane Newbrough ENVIRONMENTAL SUSTAINABILITY MANAGER Work Phone: [facility] 03-01-2023 14:21-0500 Heart rate 82 /min Roxane Newbrough ENVIRONMENTAL SUSTAINABILITY MANAGER Work Phone: [facility] 03-01-2023 14:21-0500 Respiratory rate 18 /min Roxnae Newbrough ENVIRONMENTAL SUSTAINABILITY MANAGER Work Phone: [facility] 03-01-2023 14:21-0500 SaO2% (BldA) [Mass fraction] 97 % Roxane Newbrough ENVIRONMENTAL SUSTAINABILITY MANAGER Work Phone: [facility] 03-01-2023 14:21-0500 Systolic blood pressure 118 mm[Hg] Roxane Newbrough ENVIRONMENTAL SUSTAINABILITY MANAGER Work Phone: [facility] 02-27-2023 09:45-0500 Body temperature 98.4 [degF] Marilee Weeks RN Work Phone: [facility] 02-27-2023 09:45-0500 Diastolic blood pressure 70 mm[Hg] Marilee Weeks RN Work Phone: [facility] 02-27-2023 09:45-0500 Heart rate 76 /min Marilee Weeks RN Work Phone: [facility] 02-27-2023 09:45-0500 Respiratory rate 16 /min Marilee Weeks RN Work Phone: [facility] 02-27-2023 09:45-0500 SaO2% (BldA) [Mass fraction] 98 % Marilee Weeks RN Work Phone: [facility] 02-27-2023 09:45-0500 Systolic blood pressure 110 mm[Hg] Marilee Weeks RN Work Phone: [facility] 02-23-2023 12:05-0400 Body temperature 96.69 [degF] Elroy Calvo DESKTOP SUPPORT CONSULTANT.CIRCULAR [employer]W [employer] FUSER Work Phone: [facility] 02-23-2023 12:05-0400 Diastolic blood pressure 76 mm[Hg] Elroy Calvo APRN.CIRCULAR [employer] FUSER Work Phone: [facility] 02-23-2023 12:05-0400 Heart rate 86 /min Elroy Calvo DESKTOP SUPPORT CONSULTANT.CIRCULAR [employer]W [employer] FUSER Work Phone: [facility] 02-23-2023 12:05-0400 Respiratory rate 16 /min Elroy Calvo DESKTOP SUPPORT CONSULTANT.CIRCULAR SAW [employer] FUSER Work Phone: [facility] 02-23-2023 12:05-0400 SaO2% (BldA) [Mass fraction] 92 % Elroy Calvo DESKTOP SUPPORT CONSULTANT.CIRCULAR SAW [employer] FUSER Work Phone: [facility] 02-23-2023 12:05-0400 Systolic blood pressure 112 mm[Hg] Elroy Calvo DESKTOP SUPPORT CONSULTANT.CIRCULAR SAW EDGE FUSER Work Phone: [facility] 02-22-2023 10:20-0400 Body height 170.2 cm Jose Daniel Mane APRN-CIRCULAR SAW [employer] FUSER Work Phone: [facility] 02-22-2023 10:20-0400 Body mass index (BMI) [Ratio] 39.31 kg/m2 Jose Daniel Mane DESKTOP SUPPORT CONSULTANT-CIRCULAR [employer] FUSER Work Phone: [facility] 02-22-2023 10:20-0400 Body weight 113.85 kg Jose Daniel Wood DESKTOP SUPPORT CONSULTANT-CIRCULAR [employer] FUSER Work Phone: [facility] 02-22-2023 10:20-0400 Diastolic blood pressure 78 mm[Hg] Jose Daniel Mane DESKTOP SUPPORT CONSULTANT-CIRCULAR [employer] FUSER Work Phone: [facility] 02-22-2023 10:20-0400 Heart rate 84 /min Jose Daniel Mane DESKTOP SUPPORT CONSULTANT-CIRCULAR SA[employer] FUSER Work Phone: [facility] 02-22-2023 10:20-0400 SaO2% (BldA) [Mass fraction] 95 % Jose Daniel Mane DESKTOP SUPPORT CONSULTANT-CIRCULAR [employer] FUSER Work Phone: [facility] 02-22-2023 10:20-0400 Systolic blood pressure 130 mm[Hg] Jose Daniel Mane DESKTOP SUPPORT CONSULTANT-CIRCULAR SAW [employer] FUSER Work Phone: [facility] 02-21-2023 13:24-0400 SaO2% (BldA) [Mass fraction] 86 % aMrilee Weeks RN Work Phone: [facility] 02-21-2023 13:23-0400 Body temperature 97.9 [degF] Marilee Most RN Work Phone: [facility] 02-21-2023 13:23-0400 Diastolic blood pressure 72 mm[Hg] Marilee RN Work Phone: [facility] 02-21-2023 13:23-0400 Heart rate 80 /min Marilee RN Work Phone: [facility] 02-21-2023 13:23-0400 Respiratory rate 16 /min Marilee RN Work Phone: [facility] 02-21-2023 13:23-0400 Systolic blood pressure 110 mm[Hg] Marilee Weeks RN Work Phone: [facility] 02-19-2023 13:14-0400 Body height 165.1 cm Elroy Calvo DESKTOP SUPPORT CONSULTANT.CIRCULAR SAW [employer] FUSER Work Phone: [facility] 02-19-2023 13:14-0400 Body temperature 97.3 [degF] Elroy Calvo DESKTOP SUPPORT CONSULTANT.CIRCULAR SAW [employer] FUSER Work Phone: [facility] 02-19-2023 13:14-0400 Body weight 112.58 kg Elroy Calvo APRN.CIRCULAR SAW [employer] FUSER Work Phone: [facility] 02-19-2023 13:14-0400 Diastolic blood pressure 59 mm[Hg] Elroy Calvo DESKTOP SUPPORT CONSULTANT.CIRCULAR SAW EDGE FUSER Work Phone: [facility] 02-19-2023 13:14-0400 Heart rate 99 /min Elroy Calvo DESKTOP SUPPORT CONSULTANT.CIRCULAR SAW [employer]GE FUSER Work Phone: [facility] 02-19-2023 13:14-0400 SaO2% (BldA) [Mass fraction] 92 % Elroy Calvo DESKTOP SUPPORT CONSULTANT.CIRCULAR SAW [employer]GE FUSER Work Phone: [facility] 02-19-2023 13:14-0400 Systolic blood pressure 98 mm[Hg] Elroy Calvo DESKTOP SUPPORT CONSULTANT.CIRCULAR SAW [employer]GE FUSER Work Phone: [facility] 02-18-2023 14:53-0400 Body temperature 97.5 [degF] Matias Chaparro RN Work Phone: [facility] 02-18-2023 14:53-0400 Diastolic blood pressure 72 mm[Hg] Matias Chaparro RN Work Phone: [facility] 02-18-2023 14:53-0400 Heart rate 83 /min Matias Lemonsos RN Work Phone: [facility] 02-18-2023 14:53-0400 Respiratory rate 18 /min Matias Lemonsos RN Work Phone: [facility] 02-18-2023 14:53-0400 SaO2% (BldA) [Mass fraction] 97 % Matias Chaparro RN Work Phone: [facility] 02-18-2023 14:53-0400 Systolic blood pressure 118 mm[Hg] Matias Chaparro R N Work Phone: [facility] 02-17-2023 17:04-0400 Body temperature 97.7 [degF] Ashtyn Winters RN Work Phone: [facility] 02-17-2023 17:04-0400 Body weight 115.67 kg Ashtyn Winters RN Work Phone: [facility] 02-17-2023 17:04-0400 Diastolic blood pressure 66 mm[Hg] Ashtyn Winters R N Work Phone: [facility] 02-17-2023 17:04-0400 Heart rate 76 /min Ashtyn Winters RN Work Phone: [facility] 02-17-2023 17:04-0400 Respiratory rate 20 /min Ashtyn Winters RN Work Phone: [facility] 02-17-2023 17:04-0400 SaO2% (BldA) [Mass fraction] 96 % Ashtyn Winters RN Work Phone: [facility] 02-17-2023 17:04-0400 Systolic blood pressure 118 mm[Hg] Ashtyn Winters RN Work Phone: [facility] 02-17-2023 10:00-0400 SaO2% (BldA) [Mass fraction] 95 % Zeenat Padilla PT Work Phone: [facility] 02-17-2023 09:59-0400 Heart rate 101 /min Zeenat Padilla PT Work Phone: [facility] 02-17-2023 09:45-0400 Body temperature 97.5 [degF] Zeenat Padilla PT Work Phone: [facility] 02-17-2023 09:45-0400 Diastolic blood pressure 62 mm[Hg] Zeenat Padilla PT Work Phone: [facility] 02-17-2023 09:45-0400 Respiratory rate 18 /min Zeenat Padilla PT Work Phone: [facility] 02-17-2023 09:45-0400 Systolic blood pressure 100 mm[Hg] Zeenat Padilla PT Work Phone: [facility] 02-16-2023 12:07-0400 Heart rate 102 /min Pily Jonnathan OT/L Work Phone: [facility] 02-16-2023 12:07-0400 SaO2% (BldA) [Mass fraction] 93 % Pily Jonnathan OT/L Work Phone: [facility] 02-16-2023 11:47-0400 Body temperature 97.39 [degF] Pily Jonnathan OT/L Work Phone: [facility] 02-16-2023 11:47-0400 Diastolic blood pressure 64 mm[Hg] Pily Jonnathan OT /L Work Phone: [facility] 02-16-2023 11:47-0400 Respiratory rate 18 /min Pily Jonnathan OT/L Work Phone: [facility] 02-16-2023 11:47-0400 Systolic blood pressure 108 mm[Hg] Pily Jonnathan OT/ L Work Phone: [facility] 02-15-2023 12:49-0400 Body temperature 98.1 [degF] Laura Mac RN Work Phone: [facility] 02-15-2023 12:49-0400 Diastolic blood pressure 60 mm[Hg] Laura [place] RN Work Phone: [facility] 02-15-2023 12:49-0400 Heart rate 88 /min Laura Bubba RN Work Phone: [facility] 02-15-2023 12:49-0400 Respiratory rate 16 /min Laura Bubba RN Work Phone: [facility] 02-15-2023 12:49-0400 SaO2% (BldA) [Mass fraction] 94 % Laura Ramosber RN Work Phone: [facility] 02-15-2023 12:49-0400 Systolic blood pressure 112 mm[Hg] Laura Ramosber RN Work Phone: [facility] 02-14-2023 11:34-0400 Body temperature 98.4 [degF] Jumana Jalloh RN Work Phone: [facility] 02-14-2023 11:34-0400 Diastolic blood pressure 60 mm[Hg] Jumana Jalloh RN Work Phone: [facility] 02-14-2023 11:34-0400 Heart rate 92 /min Jumana Jalloh RN Work Phone: [facility] 02-14-2023 11:34-0400 Respiratory rate 18 /min Jumana Jalloh RN Work Phone: [facility] 02-14-2023 11:34-0400 SaO2% (BldA) [Mass fraction] 95 % Jumana Jalloh RN Work Phone: [facility] 02-14-2023 11:34-0400 Systolic blood pressure 92 mm[Hg] Jumana Jalloh RN Work Phone: [facility] 02-13-2023 14:10-0400 Body temperature 97.59 [degF] Lashon Sue RN Work Phone: [facility] 02-13-2023 14:10-0400 Diastolic blood pressure 84 mm[Hg] Lashon Cinebar RN Work Phone: [facility] 02-13-2023 14:10-0400 Heart rate 87 /min Lashon Sue RN Work Phone: [facility] 02-13-2023 14:10-0400 Respiratory rate 16 /min Lashon Cinebar RN Work Phone: [facility] 02-13-2023 14:10-0400 SaO2% (BldA) [Mass fraction] 98 % Lashon Sue RN Work Phone: [facility] 02-13-2023 14:10-0400 Systolic blood pressure 128 mm[Hg] Lashon Sue RN Work Phone: [facility] 02-12-2023 14:06-0400 Body temperature 97.81 [degF] Jumana Jalloh RN Work Phone: [facility] 02-12-2023 14:06-0400 Diastolic blood pressure 78 mm[Hg] Jumana Jalloh RN Work Phone: [facility] 02-12-2023 14:06-0400 Heart rate 83 /min Jumana Jalloh RN Work Phone: [facility] 02-12-2023 14:06-0400 Respiratory rate 18 /min Jumana Jalloh RN Work Phone: [facility] 02-12-2023 14:06-0400 SaO2% (BldA) [Mass fraction] 95 % Jumana Jalloh RN Work Phone: [facility] 02-12-2023 14:06-0400 Systolic blood pressure 112 mm[Hg] Jumana Jalloh RN Work Phone: [facility] 01-27-2023 17:09-0400 SaO2% (BldA) [Mass fraction] 93 % [facility] Comment on above: Order Comment: Specimen Type: ARTERIAL B LOOD SPECIMENOrdering Facility: [facility] Address: [address] [place] [address] Performed By: #### A LLBG ####[facility] LABCLIA [id number] [address] 01-19-2023 05:54-0400 SaO2% (BldA) [Mass fraction] 88 % [facility] Comment on above: Order Comment: Specimen Type: ARTERIAL B LOOD SPECIMENOrdering Facility: [facility] Address: [address] [place], [place] [id number] Performed By: #### A LLBG ####[facility] LABORATORYCLIA [id number] [place] [address] [facility] 01-18-2023 22:21-0400 SaO2% (BldA) [Mass fraction] 91 % [facility] Comment on above: Order Comment: Specimen Type: ARTERIAL B LOOD SPECIMENOrdering Facility: [facility] Address: [address] [place] [address] Performed By: #### A LLBG ####[facility] LABORATORYCLIA [id number] [place] [address] [facility] 01-18-2023 19:12-0400 SaO2% (BldA) [Mass fraction] 92 % [facility] Comment on above: Order Comment: Specimen Type: ARTERIAL B LOOD SPECIMENOrdering Facility: [facility] Address: [address] [place] [address] Performed By: #### A LLBG ####[facility] LABORATORYCLIA [id number] [place] [id number] [facility] 01-04-2023 15:07-0400 Body height 170.2 cm Jose Daniel Wood DESKTOP SUPPORT CONSULTANT-CIRCULAR SAW [employer] FUSER Work Phone: [facility] 01-04-2023 15:07-0400 Body mass index (BMI) [Ratio] 50.31 kg/m2 Jose Daniel Wood DESKTOP SUPPORT CONSULTANT-CIRCULAR SAW EDGE FUSER Work Phone: [facility] 01-04-2023 15:07-0400 Body weight 145.69 kg Jose Daniel Wood DESKTOP SUPPORT CONSULTANT-CIRCULAR SAW EDGE FUSER Work Phone: [facility] 01-04-2023 15:07-0400 Diastolic blood pressure 70 mm[Hg] Jose Daniel Wood DESKTOP SUPPORT CONSULTANT-CIRCULAR SAW EDGE FUSER Work Phone: [facility] 01-04-2023 15:07-0400 Heart rate 109 /min Jose Daniel Wood DESKTOP SUPPORT CONSULTANT-CIRCULAR SAW EDGE FUSER Work Phone: [facility] 01-04-2023 15:07-0400 SaO2% (BldA) [Mass fraction] 91 % Jose Daniel Wood DESKTOP SUPPORT CONSULTANT-CIRCULAR SAW EDGE FUSER Work Phone: [facility] 01-04-2023 15:07-0400 Systolic blood pressure 124 mm[Hg] Jose Daniel Wood DESKTOP SUPPORT CONSULTANT-CIRCULAR SAW EDGE FUSER Work Phone: [facility] 11-30-2022 15:00-0400 Body height 165.[address] Chinyere Quigley Work Phone: [facility] 11-30-2022 15:00-0400 Body temperature 97.8 [degF] Dr. Chinyere Quigley Work Phone: [facility] 11-30-2022 15:00-0400 Diastolic blood pressure 80 mm[Hg] Dr. Chinyere Quigley Work Phone: [facility] 11-30-2022 15:00-0400 Heart rate 104 /min Dr. Chinyere Quigley Work Phone: [facility] 11-30-2022 15:00-0400 Respiratory rate 20 /min Dr. Chinyere Quigley Work Phone: [facility] 11-30-2022 15:00-0400 SaO2% (BldA) [Mass fraction] 90 % Dr. Chinyere Quigley Work Phone: [facility] 11-30-2022 15:00-0400 Systolic blood pressure 122 mm[Hg] Dr. Chinyere Quigley Work Phone: [facility] 11-23-2022 14:09-0400 Body height 170.2 cm Jose Daniel Wood DESKTOP SUPPORT CONSULTANT-CIRCULAR [employer]W [employer]USER Work Phone: [facility] 11-23-2022 14:09-0400 Body mass index (BMI) [Ratio] 49.26 kg/m2 Jose Daniel Wood DESKTOP SUPPORT CONSULTANT-CIRCULAR [employer]USER Work Phone: [facility] 11-23-2022 14:09-0400 Body weight 142.66 kg Jose Daniel Wood DESKTOP SUPPORT CONSULTANT-CIRCULAR [employer]USER Work Phone: [facility] 11-23-2022 14:09-0400 Diastolic blood pressure 64 mm[Hg] Jose Daniel Wood DESKTOP SUPPORT CONSULTANT-CIRCULAR [employer] FUSER Work Phone: [facility] 11-23-2022 14:09-0400 Heart rate 105 /min Jose Daniel Wood DESKTOP SUPPORT CONSULTANT-CIRCULAR [employer]USER Work Phone: [facility] 11-23-2022 14:09-0400 SaO2% (BldA) [Mass fraction] 90 % Jose Daniel Wood DESKTOP SUPPORT CONSULTANT-CIRCULAR [employer]USER Work Phone: [facility] 11-23-2022 14:09-0400 Systolic blood pressure 126 mm[Hg] Jose Daniel Mane DESKTOP SUPPORT CONSULTANT-CIRCULAR [employer] FUSER Work Phone: [facility] 11-09-2022 10:01-0400 Body height 170.2 cm Jose Daniel Mane DESKTOP SUPPORT CONSULTANT-CIRCULAR [employer]USER Work Phone: [facility] 11-09-2022 10:01-0400 Body mass index (BMI) [Ratio] 52.78 kg/m2 Jose Daniel Mane DESKTOP SUPPORT CONSULTANT-CIRCULAR [employer]USER Work Phone: [facility] 11-09-2022 10:01-0400 Body weight 152.86 kg Jose Daniel Mane DESKTOP SUPPORT CONSULTANT-CIRCULAR [employer]USER Work Phone: [facility] 11-09-2022 10:01-0400 Diastolic blood pressure 82 mm[Hg] Jose Daniel Mane DESKTOP SUPPORT CONSULTANT-CIRCULAR [employer]USER Work Phone: [facility] 11-09-2022 10:01-0400 Heart rate 88 /min Jose Daniel Mane DESKTOP SUPPORT CONSULTANT-CIRCULAR [employer] FUSER Work Phone: [facility] 11-09-2022 10:01-0400 Systolic blood pressure 134 mm[Hg] Jose Daniel Mane DESKTOP SUPPORT CONSULTANT-CIRCULAR [employer] FUSER Work Phone: [facility] 06-22-2022 15:46-0500 Body height 167.64 cm Chinyere Hallcel Work Phone: [facility] Work Phone: 06-22-2022 15:46-0500 Body mass index (BMI) [Ratio] 48.42 kg/m2 Chinyere Hallcel Work Phone: [facility] Work Phone: 06-22-2022 15:46-0500 Body surface area Derived from formula 2.38 m2 Chinyere Hallcel Work Phone: [facility] Work Phone: 06-22-2022 15:46-0500 Body weight 136.08 kg Chinyere Quigley Work Phone: [facility] Work Phone: 06-22-2022 15:46-0500 Diastolic blood pressure 84 mm[Hg] Chinyere Gomez el Work Phone: [facility] Work Phone: 06-22-2022 15:46-0500 Heart rate 84 /min Chinyere Quigley Work Phone: [facility] Work Phone: 06-22-2022 15:46-0500 SaO2% (BldA) [Mass fraction] 95 % Chinyere Hallcel Work Phone: [facility] Work Phone: 06-22-2022 15:46-0500 Systolic blood pressure 122 mm[Hg] Chinyere Cherry l Work Phone: [facility] Work Phone: 03-23-2022 16:00-0500 Body height 167.64 cm Chinyere Quigley Work Phone: [facility] Work Phone: 03-23-2022 16:00-0500 Body mass index (BMI) [Ratio] 47.14 kg/m2 Chinyere Quigley Work Phone: [facility] Work Phone: 03-23-2022 16:00-0500 Body surface area Derived from formula 2.35 m2 Chinyere Quigley Work Phone: [facility] Work Phone: 03-23-2022 16:00-0500 Body weight 132.48 kg Chinyere Quigley Work Phone: [facility] [employer] [facility] Work Phone: 03-23-2022 16:00-0500 Diastolic blood pressure 70 mm[Hg] Chinyere Gomez el Work Phone: [facility] Work Phone: 03-23-2022 16:00-0500 Heart rate 90 /min Chinyere Quigley Work Phone: [facility] Work Phone: 03-23-2022 16:00-0500 SaO2% (BldA) [Mass fraction] 95 % Chinyere Quigley Work Phone: [facility] Work Phone: 03-23-2022 16:00-0500 Systolic blood pressure 126 mm[Hg] Chinyere Cherry l Work Phone: -[facility] Work Phone: 03-19-2022 10:15-0500 Body temperature 98.4 [degF] Dr. Chinyere Quigley Work Phone: [facility] Work Phone: 03-19-2022 10:15-0500 Diastolic blood pressure 82 mm[Hg] Dr. Chinyere Quigley Work Phone: [facility] Work Phone: 03-19-2022 10:15-0500 Heart rate 78 /min Dr. Chinyere Quigley Work Phone: [facility] Work Phone: 03-19-2022 10:15-0500 Respiratory rate 16 /min Dr. Chinyere Quigley Work Phone: [facility] Work Phone: 03-19-2022 10:15-0500 SaO2% (BldA) [Mass fraction] 99 % Dr. Chinyere Quigley Work Phone: [facility] Work Phone: 03-19-2022 10:15-0500 Systolic blood pressure 126 mm[Hg] Dr. Chinyere Quigley Work Phone: [facility] Work Phone: 12-22-2021 15:28-0400 Body height 167.64 cm Chinyere Hallcel Work Phone: [facility] Work Phone: 12-22-2021 15:28-0400 Body mass index (BMI) [Ratio] 45.89 kg/m2 Chinyere Hallcel Work Phone: [facility] Work Phone: 12-22-2021 15:28-0400 Body surface area Derived from formula 2.32 m2 Chinyere Quigley Work Phone: [facility] Work Phone: 12-22-2021 15:28-0400 Body weight 128.96 kg Chinyere Quigley Work Phone: [facility] Work Phone: 12-22-2021 15:28-0400 Diastolic blood pressure 72 mm[Hg] Chinyere Hallc el Work Phone: [facility] Work Phone: 12-22-2021 15:28-0400 Heart rate 97 /min Chinyere Quigley Work Phone: [facility] Work Phone: 12-22-2021 15:28-0400 SaO2% (BldA) [Mass fraction] 94 % Chinyere Hallcel Work Phone: [facility] Work Phone: 12-22-2021 15:28-0400 Systolic blood pressure 130 mm[Hg] Chinyere Hallce l Work Phone: [facility] Work Phone: 09-08-2021 15:48-0400 Body height 167.64 cm Chinyere Hallcel Work Phone: [facility] Work Phone: 09-08-2021 15:48-0400 Body mass index (BMI) [Ratio] 45.4 kg/m2 Chinyere Quigley Work Phone: [facility] Work Phone: 09-08-2021 15:48-0400 Body surface area Derived from formula 2.31 m2 Chinyere Quigley Work Phone: [facility] Work Phone: 09-08-2021 15:48-0400 Body weight 127.58 kg Chinyere Quigley Work Phone: [facility] Work Phone: 09-08-2021 15:48-0400 Diastolic blood pressure 72 mm[Hg] Chinyere Hallc el Work Phone: [facility] Work Phone: 09-08-2021 15:48-0400 Heart rate 90 /min Chinyere Quigley Work Phone: [facility] Work Phone: 09-08-2021 15:48-0400 SaO2% (BldA) [Mass fraction] 94 % Chinyere Quigley Work Phone: [facility] Work Phone: 09-08-2021 15:48-0400 Systolic blood pressure 126 mm[Hg] Chinyere Phong Leonidasce l Work Phone: [facility] Work Phone: 06-13-2021 16:05-0500 Body height 167.64 cm Chinyere Hallcel Work Phone: [facility] Work Phone: 06-13-2021 16:05-0500 Body mass index (BMI) [Ratio] 44.41 kg/m2 Chinyere Hallcel Work Phone: [facility] Work Phone: 06-13-2021 16:05-0500 Body surface area Derived from formula 2.29 m2 Chinyere Quigley Work Phone: [facility] Work Phone: 06-13-2021 16:05-0500 Body weight 124.8 kg Chinyere Quigley Work Phone: [facility] Work Phone: 06-13-2021 16:05-0500 Diastolic blood pressure 74 mm[Hg] Chinyere Hallc el Work Phone: [facility] Work Phone: 06-13-2021 16:05-0500 Heart rate 83 /min Chinyere Quigley Work Phone: [facility] [employer] [facility] Work Phone: 06-13-2021 16:05-0500 SaO2% (BldA) [Mass fraction] 95 % Chinyere Quigley Work Phone: [facility] Work Phone: 06-13-2021 16:05-0500 Systolic blood pressure 110 mm[Hg] Chinyere Hallce l Work Phone: [facility] [employer] [facility] Work Phone: 03-14-2021 16:07-0500 Body height 167.64 cm Chinyere Quigley Work Phone: [facility] Work Phone: 03-14-2021 16:07-0500 Body mass index (BMI) [Ratio] 41.98 kg/m2 Chinyere Hallcel Work Phone: [facility] Work Phone: 03-14-2021 16:07-0500 Body surface area Derived from formula 2.24 m2 Chinyere Hallcel Work Phone: [facility] [employer] [facility] Work Phone: 03-14-2021 16:07-0500 Body temperature 97.3 [degF] Chinyere Quigley Work Phone: [facility] Work Phone: 03-14-2021 16:07-0500 Body weight 117.96 kg Chinyere Quigley Work Phone: [facility] Work Phone: 03-14-2021 16:07-0500 Diastolic blood pressure 70 mm[Hg] Chinyere Gomez el Work Phone: [facility] Work Phone: 03-14-2021 16:07-0500 Heart rate 82 /min Chinyere Quigley Work Phone: [facility] Work Phone: 03-14-2021 16:07-0500 SaO2% (BldA) [Mass fraction] 97 % Chinyere Quigley Work Phone: [facility] Work Phone: 03-14-2021 16:07-0500 Systolic blood pressure 118 mm[Hg] Chinyere Cherry l Work Phone: [facility] Work Phone: 02-14-2021 16:16-0400 Body height 167.64 cm Chinyere Quigley Work Phone: [facility] Work Phone: 02-14-2021 16:16-0400 Body mass index (BMI) [Ratio] 41.03 kg/m2 Chinyere Quigley Work Phone: [facility] Work Phone: 02-14-2021 16:16-0400 Body surface area Derived from formula 2.21 m2 Chinyere Quigley Work Phone: [facility] Work Phone: 02-14-2021 16:16-0400 Body temperature 97.3 [degF] Chinyere Quigley Work Phone: [facility] Work Phone: 02-14-2021 16:16-0400 Body weight 115.3 kg Chinyere Quigley Work Phone: [facility] Work Phone: 02-14-2021 16:16-0400 Diastolic blood pressure 80 mm[Hg] Chinyere Gomez el Work Phone: [facility] Work Phone: 02-14-2021 16:16-0400 Heart rate 85 /min Chinyere Quigley Work Phone: [facility] Work Phone: 02-14-2021 16:16-0400 SaO2% (BldA) [Mass fraction] 96 % Chinyere Quigley Work Phone: [facility] Work Phone: 02-14-2021 16:16-0400 Systolic blood pressure 112 mm[Hg] Chinyere Cherry l Work Phone: [facility] Work Phone: 01-18-2021 14:23-0400 Body height 167.64 cm Chinyere Quigley Work Phone: [facility] Work Phone: 01-18-2021 14:23-0400 Body mass index (BMI) [Ratio] 41.35 kg/m2 Chinyere Quigley Work Phone: [facility] Work Phone: 01-18-2021 14:23-0400 Body surface area Derived from formula 2.22 m2 Chinyere Quigley Work Phone: [facility] Work Phone: 01-18-2021 14:23-0400 Body temperature 98 [degF] Chinyere Quigley Work Phone: [facility] Work Phone: 01-18-2021 14:23-0400 Body weight 116.21 kg Chinyere Quigley Work Phone: [facility] Work Phone: 01-18-2021 14:23-0400 Diastolic blood pressure 82 mm[Hg] Chinyere Phong Leonidaswashington el Work Phone: [facility] Work Phone: 01-18-2021 14:23-0400 Heart rate 106 /min Chinyere Quigley Work Phone: [facility] Work Phone: 01-18-2021 14:23-0400 SaO2% (BldA) [Mass fraction] 95 % Chinyere Quigley Work Phone: [facility] Work Phone: 01-18-2021 14:23-0400 Systolic blood pressure 130 mm[Hg] Chinyere Cherry l Work Phone: [facility] Work Phone: 12-24-2020 08:06-0400 Body height 167.64 cm Chinyere Quigley Work Phone: [facility] Work Phone: 12-24-2020 08:06-0400 Body mass index (BMI) [Ratio] 40.9 kg/m2 Chinyere Quigley Work Phone: [facility] Work Phone: 12-24-2020 08:06-0400 Body surface area Derived from formula 2.21 m2 Chinyere Quigley Work Phone: [facility] Work Phone: 12-24-2020 08:06-0400 Body temperature 98.2 [degF] Chinyere Quigley Work Phone: [facility] [facility] Work Phone: 12-24-2020 08:06-0400 Body weight 114.93 kg Chinyere Quigley Work Phone: [employer] [facility] Work Phone: 12-24-2020 08:06-0400 Diastolic blood pressure 84 mm[Hg] Chinyere Hallwashington el Work Phone: [facility] [facility] Work Phone: 12-24-2020 08:06-0400 Heart rate 75 /min Chinyere Quigley Work Phone: [facility] [facility] Work Phone: 12-24-2020 08:06-0400 SaO2% (BldA) [Mass fraction] 94 % Chinyere Quigley Work Phone: [facility] [facility] Work Phone: 12-24-2020 08:06-0400 Systolic blood pressure 132 mm[Hg] Chinyere Cherry l Work Phone: [employer] [facility] Work Phone: Encounters Encounter Date Encounter Type Care Provider Facility Start: 02-10-2025 ambulatory Chinyere Quigley Facilit y:[facility] Start: 01-26-2025 End: 01-26-2025 Office outpatient visit 25 minutes [facility] DESKTOP SUPPORT CONSULTANT-CIRCULAR SAW [employer]GE FUSER Work Phone: [facility] Comment on above: Encounter for screen ing mammogram for breast cancer (Primary Dx); Encounter for immunization; Mixed hyperlipidemia; Primary hypertension; Prediabetes; Pulmonary hypertension (Multi); Migraine without aura and without status migrainosus, not intractable; Gastroesophageal reflux disease without esophagitis Start: 01-26-2025 End: 01-26-2025 ambulatory [facility] Start: 06-20-2024 ambulatory Reena Aldrichi ty:[facility] Start: 06-03-2024 ambulatory Chinyere Quigley Facilit y:[facility] Start: 04-18-2024 ambulatory Health Risk Assessment Facility:[facility] Start: 04-17-2024 End: 04-17-2024 Office outpatient visit 25 minutes Jose Daniel Mane DESKTOP SUPPORT CONSULTANT-CIRCULAR [employer]W [employer] FUSER Work Phone: [facility] Comment on above: Primary hypertension (Primary Dx); Other polyneuropathy; Anxiety; Encounter for screening mammogram for breast cancer; Anxiety and depression; Mixed hyperlipidemia Start: 04-17-2024 End: 04-18-2024 ambulatory [facility] Start: 2023 End: 2023 Office outpatient visit 25 minutes Jose Daniel Yañez [place] DESKTOP SUPPORT CONSULTANT-CIRCULAR SAW [employer] FUSER Work Phone: [facility] Comment on above: Weight gain (Primary Dx); Anxiety and depression; Anxiety; Muscle spasm; Other polyneuropathy; Pain in both lower extremities; Acute respiratory failure with hypoxia (CMS/HCC); Pulmonary hypertension (CMS/HCC) Start: 05-14-2023 End: 05-14-2023 ambulatory ELROY CALVO Facility:[facility] Start: 04-30-2023 End: 04-30-2023 ambulatory ELROY CALVO Facility:[facility] Start: 04-23-2023 End: 04-23-2023 Home visit Cecile Gagnon RN Work Phone: [facility] Comment on above: SN ROUTINE Start: 04-19-2023 End: 04-19-[address] Chinyere Quigley Work Phone: [facility] Work Phone: Start: 04-19-2023 End: 04-19-[address] Chinyere Quigley Work Phone: [facility] Work Phone: Start: 04-15-2023 End: 04-15-2023 Home visit Ashtyn Winters RN Work Phone: [facility] Comment on above: SN ROUTINE Start: 04-11-2023 End: 04-11-2023 ambulatory ELROY CALVO Facility:[facility] Start: 04-05-2023 End: 04-05-2023 Office outpatient visit 25 minutes [facility] DESKTOP SUPPORT CONSULTANT-CIRCULAR SAW [employer]GE FUSER Work Phone: [facility] Comment on above: Hearing loss due to cerumen impaction, bilateral (Primary Dx); Hyperlipidemia, unspecified hyperlipidemia type; Pulmonary hypertension ([facility]/HCC); Prediabetes; Anxiety and depression; Anxiety; Wheezing; Migraine with aura and without status migrainosus, not intractable; Encounter for immunization; Skin ulcer of abdomen with fat layer exposed ([facility]/HCC) Start: 04-04-2023 End: 04-04-2023 Home visit Jumana Jalloh RN Work Phone: [facility] Comment on above: SN ROUTINE Start: 04-04-2023 End: 04-05-2023 ambulatory [facility] Start: 04-02-2023 End: 04-02-2023 Home visit Mani Marinelli RN Work Phone: [facility] Comment on above: CARE COORDINATION SN ROUTINE Start: 03-30-2023 Home visit Aurora de jesus RN Work Phone: [facility] Comment on above: CARE COORDINATION Start: 03-30-2023 End: 03-30-2023 ambulatory ELROY VILLAFUERTEDaron Facility:[facility] Start: 03-26-2023 End: 03-26-2023 Home visit Marilee Weeks RN Work Phone: [facility] Comment on above: SN ROUTINE Start: 03-24-2023 Telephone encounter Matias chavez RN Work Phone: [facility] Comment on above: Home Care Start: 03-23-2023 End: 03-23-2023 Home visit Marilee Weeks RN Work Phone: [facility] Comment on above: SN UNMADE VISIT Start: 03-22-2023 End: 03-22-2023 Home visit Aurora Coronado RN Work Phone: [facility] Comment on above: CARE COORDINATION SN PRN VISIT Start: 03-21-2023 End: 03-21-2023 Home visit Marilee Weeks RN Work Phone: [facility] Comment on above: SN ROUTINE Start: 03-18-2023 End: 03-18-[address] Chinyere Quigley Work Phone: [facility] Work Phone: Start: 03-16-2023 End: 03-16-2023 Home visit Marilee Weeks RN Work Phone: [facility] Comment on above: SN ROUTINE Start: 03-14-2023 End: 03-14-2023 Home visit Marilee Weeks RN Work Phone: [facility] Comment on above: SN ROUTINE Start: 03-12-2023 End: 03-12-2023 Home visit Laura Mac RN Work Phone: [facility] Comment on above: SN ROUTINE Start: 03-09-2023 End: 03-09-2023 Home visit Hermelinda Knight RN Work Phone: [facility] Comment on above: CARE COORDINATION SN UNMADE VISIT Start: 03-09-2023 End: 03-09-2023 ambulatory ELROY CALVO Facility:[facility] Start: 03-09-2023 End: 03-09-2023 Patient encounter procedure Elroy Calvo DESKTOP SUPPORT CONSULTANT.CIRCULAR SAW [employer]GE FUSER Work Phone: Pl[facility] Surgery Comment on above: Skin ulcer of abdome n with fat layer exposed (HCC) (Primary Dx); Necrotizing soft tissue infection; Erythema intertrigo Start: 03-07-2023 End: 03-07-2023 Home visit Marilee Weeks RN Work Phone: [facility] Comment on above: SN ROUTINE Start: 03-06-2023 ambulatory [facility] Start: 03-05-2023 End: 03-05-2023 Home visit Vicenta Alves RN Work Phone: [facility] Comment on above: SN ROUTINE Start: 03-02-2023 End: 03-02-2023 ambulatory ELROY CALVO Facility:[facility] Start: 03-01-2023 End: 03-01-2023 Home visit Roxane Cedrick MONROY Work Phone: [facility] Comment on above: SN ROUTINE Start: 02-27-2023 End: 02-27-2023 Home visit Marilee Weeks RN Work Phone: [facility] Comment on above: SN ROUTINE Start: 02-26-2023 Home visit Aurora de jesus RN Work Phone: [facility] Comment on above: CARE COORDINATION Start: 02-25-2023 Home visit Hermelinda Knight RN Work Phone: [facility] Comment on above: CARE COORDINATION Start: 02-24-2023 Home visit Rimma Clolier RN Work Phone: [facility] Comment on above: CARE COORDINATION Start: 02-23-2023 End: 02-23-2023 ambulatory ELROY CALVO Facility:[facility] Start: 02-23-2023 End: 02-23-2023 Patient encounter procedure Elroy Calvo VERA.CIRCULAR SAW EDGE FUSER Work Phone: [facility] Surgery Comment on above: Skin ulcer of abdome n with fat layer exposed (HCC) (Primary Dx); Necrotizing soft tissue infection; Erythema intertrigo Start: 02-22-2023 Transcribe Orders Jose Daniel Mane CIRCULAR SAW EDGE FUSER Work Phone: 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[facility]); History of acute respiratory failure Start: 02-21-2023 End: 02-21-2023 Home visit Marilee Weeks RN Work Phone: [facility] Comment on above: SN ROUTINE Start: 02-19-2023 End: 02-19-2023 ambulatory ELROY CALVO Facility:[facility] Start: 02-19-2023 Home visit Lilli Jean RN Work Phone: [facility] Comment on above: CARE COORDINATION Start: 02-19-2023 End: 02-19-2023 Patient encounter procedure Elroy Calvo DESKTOP SUPPORT CONSULTANT.CIRCULAR SAW [employer] FUSER Work Phone: Plastic Surgery Comment on above: Skin ulcer of abdome n with fat layer exposed (HCC) (Primary Dx); Necrotizing soft tissue infection; Erythema intertrigo Start: 02-18-2023 End: 02-18-2023 Home visit Matias Chaparro RN Work Phone: [facility] Comment on above: SN ROUTINE Start: 02-17-2023 End: 02-17-2023 Home visit Zeenat Padilla PT Work Phone: [facility] Comment on above: PT EVAL SN ROUTINE CARE COORDINATION Start: 02-16-2023 End: 02-16-2023 Home visit Pily De Santiago OT/L Work Phone: [facility] Comment on above: OT EVAL Start: 02-15-2023 End: 02-15-2023 Home visit Laura Mac RN Work Phone: [facility] Comment on above: SN ROUTINE Start: 02-14-2023 End: 02-14-2023 Home visit Jumana Jalloh RN [facility] [facility] Comment on above: SN ROUTINE Start: 02-13-2023 End: 02-13-2023 Home visit Lashon Rogers RN Work Phone: [facility] Comment on above: SN ROUTINE Start: 02-12-2023 End: 02-12-2023 Home visit Jumana Jalloh RN Work Phone: [facility] Comment on above: SN ROUTINE Start: 02-06-2023 Telephone encounter Sarah chiu Work Phone: [facility] Comment on above: Home Care (Confirmat ion call) Start: 02-05-2023 Telephone encounter Sarah simpson LPN Work Phone: [facility] Comment on above: Opened In Error Home Care (MD amy hood) Start: 01-26-2023 Evaluation and manag ement of inpatient [facility] Facility:[facility] Start: 01-17-2023 End: 01-26-2023 Evaluation and management of inpatient [facility] Facility:[facility] Start: 01-17-2023 End: 01-17-2023 Emergency department patient visit [facility] Facility:[facility] Start: 01-11-2023 ambulatory Ms. Jose Daniel Mane Facility:[id number] Start: 01-04-2023 End: 01-04-2023 Office outpatient visit 25 minutes Jose Daniel Mane DESKTOP SUPPORT CONSULTANT-CIRCULAR [employer]USER Work Phone: [facility] Comment on above: Anxiety and depressi on (Primary Dx); Peripheral edema; Edema of both lower extremities due to peripheral venous insufficiency Start: 12-29-2022 ambulatory Ms. Jose Daniel Mane Facility:[id number] Start: 11-30-2022 End: 11-30-[address] Chinyere Quigley Work Phone: [facility] Work Phone: Start: 11-30-2022 End: 11-30-[address] Chinyere Quigley Work Phone: [facility] Work Phone: Start: 11-23-2022 End: 11-23-2022 Office outpatient visit 25 minutes Jose Daniel Mane DESKTOP SUPPORT CONSULTANT-CIRCULAR [employer]USER Work Phone: [facility] Comment on above: Venous insufficiency (Primary Dx); Peripheral edema; Other polyneuropathy; Class 3 severe obesity due to excess calories with serious comorbidity and body mass index (BMI) of 40.0 to 44.9 in adult ([facility]) Start: 11-09-2022 End: 11-10-2022 ambulatory CHINYERE QUIGLEY [facility] Start: 11-09-2022 End: 11-09-2022 Office outpatient visit 25 minutes Jose Daniel Mane DESKTOP SUPPORT CONSULTANT-CIRCULAR [employer]USER Work Phone: [facility] Comment on above: Peripheral edema (Pr imary Dx); Weight gain Start: 06-22-2022 Office outpatient vi sit 25 minutes Chinyere Hallcel Work Phone: -[facility] Work Phone: Start: 06-22-[address] Chinyere Gee Facility:[id number] Start: 06-15-2022 AUDIT Chinyere Darling Sten timo Work Phone: -[facility] Work Phone: Start: 05-15-2022 AUDIT Chinyere Darling Sten timo Work Phone: -[facility] Work Phone: Start: 03-23-2022 Office outpatient vi sit 25 minutes Chinyere Hallcel Work Phone: -[facility] Work Phone: Start: 03-23-2022 ambulatory Ms. Jose Daniel Mane Facility:[id number] Start: 03-19-2022 End: 03-19-[address] Chinyere Quigley Work Phone: [facility] Start: 03-13-2022 AUDIT Chinyere Darling Sten timo Work Phone: -[facility] Work Phone: Start: 02-20-2022 AUDIT Chinyere Darling Sten timo Work Phone: [facility] Work Phone: Start: 02-09-2022 AUDIT Chinyere Darling Sten timo Work Phone: [facility] Work Phone: Start: 01-09-2022 AUDIT Chinyere Darling Sten timo Work Phone: [facility] Work Phone: Start: 12-22-2021 Office outpatient vi sit 25 minutes Chinyere Quigley Work Phone: [facility] Work Phone: Start: 12-22-2021 ambulatory Ms. Jose Daniel aMne Facility:[id number] Start: 12-07-2021 AUDIT Chinyere Darling Sten timo Work Phone: [facility] Work Phone: Start: 12-05-[address] Rosy Quigley Work Phone: [facility] Start: 12-05-2021 End: 12-05-[address] Chinyere Quigley Work Phone: [facility] Work Phone: Start: 12-05-2021 End: 12-05-[address] Chinyere Quigley Work Phone: [facility] Start: 11-10-2021 AUDIT Chinyere Hall timo Work Phone: [facility] Work Phone: Start: 10-10-2021 AUDIT Chinyere Hall timo Work Phone: [facility] Work Phone: Start: 09-08-2021 Office outpatient vi sit 25 minutes Chinyere Hallcel Work Phone: [facility] Work Phone: Start: 09-08-2021 ambulatory Ms. Jose Daniel Mane Facility:[id number] Start: 08-11-2021 AUDIT Chinyere Darling Sten timo Work Phone: [facility] Work Phone: Start: 07-11-2021 AUDIT Chinyere Darling Sten timo Work Phone: [facility] Work Phone: Start: 06-13-2021 Office outpatient vi sit 15 minutes Chinyere D Stencel Work Phone: [facility] Work Phone: Start: 05-12-2021 AUDIT Chinyere D Sten timo Work Phone: [facility] Work Phone: Start: 04-11-2021 AUDIT Chinyere D Sten timo Work Phone: [facility] Work Phone: Start: 03-24-2021 Chart Update Chinyere D Sten timo Work Phone: [facility] Work Phone: Start: 03-14-2021 Office outpatient vi sit 15 minutes Chinyere D Stencel Work Phone: [facility] Work Phone: Start: 02-14-2021 Office outpatient vi sit 15 minutes Chinyere D Stencel Work Phone: [facility] Work Phone: Start: 01-18-2021 Office outpatient vi sit 25 minutes Chinyere D Stencel Work Phone: [facility] Work Phone: Start: 12-24-2020 Periodic preventive med est patient 40-64yrs Chinyere Hallcel Work Phone: [facility] Work Phone: Start: 12-26-2019 Patient encounter procedure Chinyere Quigely [facility] Work Phone: Start: 07-04-2019 Patient encounter procedure Chinyere Quigley [facility] Work Phone: Start: 05-20-2019 Patient encounter procedure Chinyere Quigley [facility] Work Phone: Start: 04-29-2019 Patient encounter procedure Chinyere Quigley [facility] Work Phone: Start: 04-21-2019 Patient encounter procedure Chinyere Quigley [facility] Work Phone: Start: 08-13-2018 Patient encounter procedure Garfield Marie Facility:[facility] DO Start: 08-12-2018 Patient encounter procedure Jose Daniel Mane Facility:[facility] Start: 08-12-2018 End: 08-13-2018 Patient encounter procedure Jose Daniel Yañez Navneet Facility:[facility] Start: 08-05-2018 Patient encounter procedure Chinyere Hallcel Facility:[facility] Start: 07-01-2018 Patient encounter procedure Chinyere Stencel Facility:[facility] Start: 07-01-2018 End: 07-02-2018 Patient encounter procedure Chinyere Stencel Facility:[facility] Start: 12-31-2017 End: 01-01-2018 Patient encounter procedure Chinyere Quigley Facility:[facility] Procedures Date Procedure Procedure Detail Performing Clinician Start: 04-27-2023 Mammography Jose Daniel Bustillo ood DESKTOP SUPPORT CONSULTANT-CIRCULAR [employer]USER Work Phone: Start: 04-19-2023 Screening mammography D r. Chinyere Halltimo Work Phone: Start: 04-05-2023 Removal impacted cer umen irrigation/lvg unilat Jose Daniel Otilio Navneet DESKTOP SUPPORT CONSULTANT-CIRCULAR [employer]USER Work Phone: Start: 04-05-2023 Drugs of abuse scree n W Reflex confirm panel - Urine Jose Daniel Mane DESKTOP SUPPORT CONSULTANT-CIRCULAR [employer]USER Work Phone: Start: 04-04-2023 CBC W Auto Different ial panel - Blood CHINYERE HALLTIMO Start: 04-04-2023 Comprehensive metabo lic 2000 panel - Serum or Plasma CHINYERE QUIGLEY Start: 04-04-2023 Hemoglobin A1c/Hemoglobin.total in Blood CHINYERE HALLTIMO Start: 04-04-2023 Lipid panel CHINYERE GRIGGS Start: 04-04-2023 Lipid 1996 panel - S dustin or Plasma Jose Daniel Navneet DESKTOP SUPPORT CONSULTANT-CIRCULAR [employer]USER Work Phone: Start: 03-06-2023 HOME SLEEP APNEA TEST (HSAT) JOSE DANIEL MANE Start: 03-01-2023 Colonoscopy Jose Daniel parkerod DESKTOP SUPPORT CONSULTANT-CIRCULAR [employer]USER Work Phone: Start: 11-30-2022 Plain x-ray of wrist Dr Josselin Quigley Work Phone: Start: 11-09-2022 CBC W Auto Different ial panel - Blood CHINYERE DANN Start: 11-09-2022 Comprehensive metabo lic 2000 panel - Serum or Plasma CHINYERE QUGILEY Start: 11-09-2022 Cyanocobalamin vitamin b-12 CHINYERE QUIGLEY Start: 11-09-2022 Morphology Mickey (Bld) [Interp] CHINYERE HALLTIMO Start: 11-09-2022 RHEUMATOID FACTOR JEFF ROSIBEL QUIGLEY Start: 11-09-2022 TSH WITH REFLEX TO F REE T4 IF ABNORMAL CHINYERE QUIGLEY Start: 04-19-2022 Mammography Jose Daniel Bustillo ood DESKTOP SUPPORT CONSULTANT-CIRCULAR [employer] Work Phone: Start: 05-31-2011 Colonoscopy Jose Daniel love DESKTOP SUPPORT CONSULTANT-CIRCULAR [employer]USER Work Phone: Start: 05-31-2011 Colonoscopy Chinyere Quigley Work Phone: Cholecystectomy Chinyere brennan Colonoscopy Chinyere Halltimo Comment on above: 2013; Plan of Treatment Date Care Activity Detail Author Start: 03-01-2033 Screening for malignant neoplasm of colon [facility] Start: 04-04-2028 Lipid panel [facility] Start: 04-04-2026 Diabetes Screening Diabetes Screening [facility] Start: 01-29-2026 Diabetes Screening Diabetes Screening [facility] Start: 04-20-2025 End: 04-20-2025 Patient encounter procedure 04/20/2025 8:40 AM EST Office Visit [facility] [address] [id number] Jose Daniel Mane, DESKTOP SUPPORT CONSULTANT-CIRCULAR [employer]W [employer] FUSER [address] [address] [facility] Start: 04-18-2025 Diabetes mellitus screening Diabetes Screening [facility] Start: 04-18-2025 Hemoglobin A1c measurement Diabetes: Hemoglobin A1C [facility] Start: 01-26-2025 End: 01-26-2026 CBC panel - Blood by Automated count CBC Lab Routine Primary hypertension Expected: 01/26/2025 (Approximate), Expires: 01/26/2026 [facility] Work Phone: Comment on above: Expected: 01/26/2025 (Approximate), Expi res: 01/26/2026 Start: 01-26-2025 End: 01-26-2026 Comprehensive metabolic 2000 panel - Serum or Plasma Comprehensive Metabolic Panel Lab Routine Primary hypertension Expected: 01/26/2025 (Approximate), Expires: 01/26/2026 [facility] Service Area Work Phone: Comment on above: Expected: 01/26/2025 (Approximate), Expi res: 01/26/2026 Start: 01-26-2025 End: 03-28-2026 DBT Breast - bilateral BI mammo bilateral screening tomosynthesis Imaging Routine Encounter for screening mammogram for breast cancer Expected: 01/26/2025, Expires: 03/28/2026 [facility] Work Phone: Comment on above: Expected: 01/26/2025, Expires: Start: 01-26-2025 End: 01-26-2026 Hemoglobin A1c/Hemoglobin.total in Blood Hemoglobin A1C Lab Routine Prediabetes Expected: 01/26/2025 (Approximate), Expires: 01/26/2026 [facility] Work Phone: Comment on above: Expected: 01/26/2025 (Approximate), Expi res: 01/26/2026 Start: 01-26-2025 End: 01-26-2026 Lipid 1996 panel - Serum or Plasma Lipid Panel Lab Routine Mixed hyperlipidemia Expected: 01/26/2025 (Approximate), Expires: 01/26/2026 [facility] Work Phone: Comment on above: Expected: 01/26/2025 (Approximate), Expi res: 01/26/2026 Start: 12-22-2024 COVID-19 Vaccine ( season) COVID-19 Vaccine ( season) [facility] Start: 04-27-2024 Screening for malignant neoplasm of breast Mammogram [facility] Start: 04-17-2024 End: 06-18-2025 DBT Breast - bilateral BI mammo bilateral screening tomosynthesis Imaging Routine Encounter for screening mammogram for breast cancer Expected: 04/17/2024, Expires: 06/18/2025 [facility] Work Phone: Comment on above: Expected: 04/17/2024, Expires: Start: 04-17-2024 End: 04-17-2025 DRUG SCREEN,URINE [facility] Service Area Work Phone: Comment on above: Expected: 04/17/2024 (Approximate), Expi res: 04/17/2025 Start: 04-15-2024 BP Controlled (<130/80) BP Controlled (<130/80) [facility] Start: 04-04-2024 BP Controlled (<130/80) BP Controlled (<130/80) [facility] Start: 04-04-2024 Diabetes mellitus screening Diabetes Screening [facility] Start: 04-04-2024 Hemoglobin A1c measurement Diabetes: Hemoglobin A1C [facility] Start: 04-02-2024 BP Controlled (<130/80) BP Controlled (<130/80) [facility] Start: 03-30-2024 BP Controlled (<130/80) BP Controlled (<130/80) [facility] Start: 03-26-2024 BP Controlled (<130/80) BP Controlled (<130/80) [facility] Start: 03-22-2024 BP Controlled (<130/80) BP Controlled (<130/80) [facility] Start: 03-21-2024 BP Controlled (<130/80) BP Controlled (<130/80) [facility] Start: 03-16-2024 BP Controlled (<130/80) BP Controlled (<130/80) [facility] Start: 03-14-2024 BP Controlled (<130/80) BP Controlled (<130/80) [facility] Start: 03-12-2024 BP Controlled (<130/80) BP Controlled (<130/80) [facility] Start: 03-09-2024 BP Controlled (<130/80) BP Controlled (<130/80) [facility] Start: 03-07-2024 BP Controlled (<130/80) BP Controlled (<130/80) [facility] Start: 03-05-2024 BP Controlled (<130/80) BP Controlled (<130/80) [facility] Start: 02-28-2024 BP Controlled (<130/80) BP Controlled (<130/80) [facility] Start: 02-24-2024 BP Controlled (<130/80) BP Controlled (<130/80) [facility] Start: 02-22-2024 BP Controlled (<130/80) BP Controlled (<130/80) [facility] Start: 02-20-2024 BP Controlled (<130/80) BP Controlled (<130/80) [facility] Start: 02-19-2024 BP Controlled (<130/80) BP Controlled (<130/80) [facility] Start: 02-18-2024 BP Controlled (<130/80) BP Controlled (<130/80) [facility] Start: 02-16-2024 BP Controlled (<130/80) BP Controlled (<130/80) [facility] Start: 02-15-2024 BP Controlled (<130/80) BP Controlled (<130/80) [facility] Start: 02-13-2024 BP Controlled (<130/80) BP Controlled (<130/80) [facility] Start: 12-23-2023 COVID-19 Vaccine () COVID-19 Vaccine () [facility] Start: 10-11-2023 End: 10-11-2023 Patient encounter procedure 10/11/2023 3:20 PM EDT Office Visit [facility] [address] [place] [phone] Jose Daniel Mane, DESKTOP SUPPORT CONSULTANT-CIRCULAR [employer]W [employer] FUSER [address] [place] [address] [facility] Start: 07-20-2023 Esophagogastroduodenoscopy EGD [facility] Start: 2023 End: 2023 Patient encounter procedure 2023 3:20 PM EDT Office Visit [facility] [address] [place] [phone] Jose Daniel Mane, DESKTOP SUPPORT CONSULTANT-CIRCULAR SAW [employer] FUSER [address] [place] [address] [facility] Start: 2023 End: 07-04-2024 CBC panel - Blood by Automated count CBC Lab Routine Weight gain Expected: 2023 (Approximate), Expires: 07/04/2024 [facility] Work Phone: Comment on above: Expected: 2023 (Approximate), Expi res: 07/04/2024 Start: 2023 End: 07-04-2024 Comprehensive metabolic 2000 panel - Serum or Plasma Comprehensive Metabolic Panel Lab Routine Weight gain Expected: 2023 (Approximate), Expires: 07/04/2024 [facility] Work Phone: Comment on above: Expected: 2023 (Approximate), Expi res: 07/04/2024 Start: 2023 End: 07-04-2024 Hemoglobin A1c/Hemoglobin.total in Blood Hemoglobin A1C Lab Routine Weight gain Expected: 2023 (Approximate), Expires: 07/04/2024 [facility] Service Area Work Phone: Comment on above: Expected: 2023 (Approximate), Expi res: 07/04/2024 Start: 2023 RSV High Risk: (Elderly (60+) or Population) (1 - Risk 60-74 years 1-dose series) RSV High Risk: (Elderly (60+) or Population) (1 - Risk 60-74 years 1-dose series) [facility] Start: 2023 End: 07-04-2024 Thyrotropin [Units/volume] in Serum or Plasma Thyroid Stimulating Hormone Lab Routine Weight gain Expected: 2023 (Approximate), Expires: 07/04/2024 [facility] Work Phone: Comment on above: Expected: 2023 (Approximate), Expi res: 07/04/2024 Start: 04-23-2023 Depression Assessment Depression Assessment [facility] Start: 04-19-2023 Screening for malignant neoplasm of breast Mammogram [facility] Start: 03-26-2023 End: 03-26-2023 Patient encounter procedure 03/26/2023 1:20 PM EST Office Visit [facility] [address] [facility] [place] [phone] Jose Daniel Mane, DESKTOP SUPPORT CONSULTANT-CIRCULAR [employer]W [employer] FUSER [address] [place] [address] [facility] Start: 03-01-2023 End: 02-23-2024 CBC W Auto Differential panel - Blood CBC and Auto Differential Lab Routine Hyperlipidemia, unspecified hyperlipidemia type Expected: 03/01/2023 (Approximate), Expires: 02/23/2024 [facility] Work Phone: Comment on above: Expected: 03/01/2023 (Approximate), Expi res: 02/23/2024 Start: 02-22-2023 End: 02-23-2024 Comprehensive metabolic 2000 panel - Serum or Plasma Comprehensive Metabolic Panel Lab Routine Hyperlipidemia, unspecified hyperlipidemia type Expected: 02/22/2023 (Approximate), Expires: 02/23/2024 [facility] Work Phone: Comment on above: Expected: 02/22/2023 (Approximate), Expi res: 02/23/2024 Start: 02-22-2023 End: 02-23-2024 Hemoglobin A1c/Hemoglobin.total in Blood Hemoglobin A1C Lab Routine Prediabetes Expected: 02/22/2023 (Approximate), Expires: 02/23/2024 [facility] Work Phone: Comment on above: Expected: 02/22/2023 (Approximate), Expi res: 02/23/2024 Start: 02-22-2023 End: 02-23-2024 Home sleep apnea test (HSAT) Home sleep apnea test (HSAT) Sleep Center Routine Snoring Expected: 02/22/2023 (Approximate), Expires: 02/23/2024 [facility] Service Area Work Phone: Comment on above: Expected: 02/22/2023 (Approximate), Expi res: 02/23/2024 Start: 02-05-2023 End: 02-05-2023 Patient encounter procedure 02/05/2023 3:20 PM EDT Office Visit [facility] [address] [place] [phone] Jose Daniel Mane, DESKTOP SUPPORT CONSULTANT-CIRCULAR [employer]W [employer] FUSER [address] [place] [address] [facility] Start: 01-04-2023 End: 01-04-2023 Patient encounter procedure 01/04/2023 3:20 PM EDT Office Visit [facility] [address] [place] [phone] Jose Daniel Mane, DESKTOP SUPPORT CONSULTANT-CIRCULAR SAW [employer] FUSER [address] [place] [address] [facility] Start: 12-22-2022 Covid-19 Vaccine ( season) Covid-19 Vaccine ( season) [facility] Start: 12-22-2022 Influenza vaccination Influenza Vaccine (#1) [facility] Start: 11-23-2022 End: 11-23-2022 Patient encounter procedure 11/23/2022 2:20 PM EDT Office Visit [facility] [address] [place] [phone] Jose Daniel Mane, DESKTOP SUPPORT CONSULTANT-CIRCULAR [employer]W [employer] FUSER [address] [place] [address] [facility] Start: 11-16-2022 End: 11-10-2023 CBC W Auto Differential panel - Blood CBC and Auto Differential Lab Routine Peripheral edema Expected: 11/16/2022 (Approximate), Expires: 11/10/2023 [facility] Service Area Work Phone: Comment on above: Expected: 11/16/2022 (Approximate), Expi res: 11/10/2023 Start: 11-09-2022 End: 11-10-2023 Cobalamin (Vitamin B12) [Mass/volume] in Serum or Plasma [facility] Work Phone: Comment on above: Expected: 11/09/2022 (Approximate), Expi res: 11/10/2023 Start: 11-09-2022 End: 11-10-2023 Comprehensive metabolic 2000 panel - Serum or Plasma [facility] Work Phone: Comment on above: Expected: 11/09/2022 (Approximate), Expi res: 11/10/2023 Start: 11-09-2022 End: 11-10-2023 Rheumatoid factor [Units/volume] in Serum by Nephelometry Rheumatoid Factor Lab Routine Peripheral edema Weight gain Expected: 11/09/2022 (Approximate), Expires: 11/10/2023 [facility] Work Phone: Comment on above: Expected: 11/09/2022 (Approximate), Expi res: 11/10/2023 Start: 11-09-2022 End: 11-10-2023 TSH with reflex to Free T4 if abnormal [facility] Work Phone: Comment on above: Expected: 11/09/2022 (Approximate), Expi res: 11/10/2023 Start: 11-09-2022 End: 11-09-2024 US Heart Transthoracic Transthoracic echo (TTE) complete Echocardiography Routine Peripheral edema Expected: 11/09/2022 (Approximate), Expires: 11/09/2024 [facility] Work Phone: Comment on above: Expected: 11/09/2022 (Approximate), Expi res: 11/09/2024 Start: 06-22-2022 EPV, Provider: Jose Daniel Mane, Status: Pen, Time: 4:00 PM EPV, Provider: Jose Daniel Mane, Status: Pen, Time: 4:00 PM [facility] Work Phone: Start: 04-23-2022 Depression Assessment Depression Assessment [facility] Start: 03-23-2022 EPV, Provider: Jose Daniel Mane, Status: Pen, Time: 4:00 PM EPV, Provider: Jose Daniel Mane, Status: Pen, Time: 4:00 PM [employer] [facility] Work Phone: Start: 12-25-2021 Yearly Adult Physical Yearly Adult Physical [facility] Start: 12-22-2021 EPV, Provider: Jose Daniel Mane, Status: Pen, Time: 3:20 PM EPV, Provider: Jose Daniel Mane, Status: Pen, Time: 3:20 PM [employer] [facility] Work Phone: Start: 12-08-2021 EPV, Provider: Jose Daniel Mane, Status: Pen, Time: 3:20 PM EPV, Provider: Jose Daniel Mane, Status: Pen, Time: 3:20 PM [employer] [facility] Work Phone: Start: 09-08-2021 EPV, Provider: Jose Daniel Mane, Status: Pen, Time: 4:00 PM EPV, Provider: Jose Daniel Mane, Status: Pen, Time: 4:00 PM [employer] [facility] Work Phone: Start: 06-27-2021 EPV, Provider: Chinyere Quigley, Status: Pen, Time: 8:20 AM EPV, Provider: Chinyere Quigley, Status: Pen, Time: 8:20 AM [employer] [facility] Work Phone: Start: 06-13-2021 EPV, Provider: Jose Daniel Mane, Status: Pen, Time: 4:00 PM EPV, Provider: Jose Daniel Mane, Status: Pen, Time: 4:00 PM [employer] [facility] Work Phone: Start: 06-09-2021 COVID-19 Vaccine (4 - Booster for Moderna series) COVID-19 Vaccine (4 - Booster for Moderna series) [facility] Start: 06-09-2021 COVID-19 Vaccine (4 - Moderna series) COVID-19 Vaccine (4 - Moderna series) [facility] Start: 05-31-2021 Screening for malignant neoplasm of colon [facility] Start: 03-14-2021 EPV, Provider: Jose Daniel Mane, Status: Pen, Time: 4:00 PM EPV, Provider: Jose Daniel Mane, Status: Pen, Time: 4:00 PM -[employer] [facility] Work Phone: Start: 02-21-2021 EPV, Provider: Chinyere Quigley, Status: Pen, Time: 2:40 PM EPV, Provider: Chinyere Quiglye, Status: Pen, Time: 2:40 PM -[employer] [facility] Work Phone: Start: 07-04-2013 Influenza vaccination Lung Cancer Screening [facility] Start: 07-04-2013 Screening for malignant neoplasm of lung [facility] [facility] Start: 07-04-2013 Shingrix Vaccine (1 of 2) Shingrix Vaccine (1 of 2) [facility] Start: 07-04-2013 Zoster Vaccines (1 of 2) Zoster Vaccines (1 of 2) [facility] Start: 07-04-2008 Cologuard (FIT-DNA) Cologuard (FIT-DNA) [facility] Start: 07-04-2008 Colonoscopy Colonoscopy [facility] Start: 07-04-2008 Colorectal Cancer Screening Colorectal Cancer Screening [facility] Start: 07-04-[address] Colonography [facility] Start: 07-04-2008 Fecal Occult Blood Fecal Occult Blood [facility] Start: 07-04-2008 Lipid 1996 panel - Serum or Plasma Lipid Screening [facility] Start: 07-04-2008 Lipid panel Lipid Screening [facility] Start: 07-04-2008 Screening for malignant neoplasm of colon [facility] Start: 07-04-2008 Sigmoidoscopy Sigmoidoscopy [facility] Start: 2003 Mammography Mammogram Screening [facility] Start: 2003 Screening for malignant neoplasm of breast Mammogram Screening [facility] Start: 07-04-1993 HPV Testing HPV Testing [facility] Start: 07-04-1993 Screening for malignant neoplasm of cervix HPV Testing [facility] Start: 07-04-1985 DTaP/Tdap/Td Vaccines (1 - Tdap) DTaP/Tdap/Td Vaccines (1 - Tdap) [facility] Start: 07-04-1984 Pap Testing Pap Testing [facility] Start: 07-04-1984 Screening for malignant neoplasm of cervix [facility] Start: 07-04-1982 Urine microalbumin profile DTaP,Tdap,Td Vaccine (1 - Tdap) [facility] Start: 07-04-1981 Annual PCP Team Chronic Disease Visit Annual PCP Team Chronic Disease Visit [facility] Start: 07-04-1981 BP Controlled (<130/80) BP Controlled (<130/80) [facility] Start: 07-04-1981 Diabetes mellitus screening Diabetes Screening [facility] Start: 07-04-1981 Hepatitis C screening Hepatitis C Screening [facility] Start: 07-04-1981 Hepatitis C Screening Hepatitis C Screening [facility] Start: 07-04-1981 HIV Screening HIV Screening [facility] Start: 07-04-1981 HIV screening HIV Screening [facility] Start: 07-04-1969 Pneumococcal Vaccine: Pediatrics (0 to 5 Years) and At-Risk Patients (6 to 64 Years) (1 - PCV) Pneumococcal Vaccine: Pediatrics (0 to 5 Years) and At-Risk Patients (6 to 64 Years) (1 - PCV) [facility] Start: 07-04-1964 MMR Vaccines (1 of 1 - Standard series) MMR Vaccines (1 of 1 - Standard series) [facility] Start: 1963 Hemoglobin A1c measurement Diabetes: Hemoglobin A1C [facility] Start: 1963 Hepatitis B Vaccines (1 of 3 - 3-dose series) Hepatitis B Vaccines (1 of 3 - 3-dose series) [facility] Start: 1963 HIV screening HIV Screening [facility] Start: 1963 Lipid panel Lipid Panel [facility] Start: 1963 Screening for malignant neoplasm of colon [facility] Start: 1963 Yearly Adult Physical Yearly Adult Physical [facility] CBC W Auto Different ial panel - Blood CBC and Auto Differential Lab Routine Peripheral edema 11/09/2022 10:37 AM EDT [facility] Work Phone: [facility] Immunizations Immunization Date Immunization Notes Care Provider Christy beavers 01-26-2025 influenza, seasonal, injectable, preservative free Jose Daniel Wood DESKTOP SUPPORT CONSULTANT-CIRCULAR [employer]W [employer] FUSER Work Phone: [facility] Work Phone: 02-22-2024 influenza, seasonal, injectable, preservative free Jose Daniel Wood DESKTOP SUPPORT CONSULTANT-CIRCULAR [employer]W [employer] FUSER Work Phone: [facility] Work Phone: 04-05-2023 Pneumococcal conjuga te vaccine, 20-valent (PREVNAR 20) Jose Daniel Wood DESKTOP SUPPORT CONSULTANT-CIRCULAR [employer]W [employer] FUSER Work Phone: [facility] Work Phone: 01-27-2023 influenza, injectabl e, quadrivalent, preservative free Sarah Dave ENVIRONMENTAL SUSTAINABILITY MANAGER Work Phone: [facility] 02-23-2022 influenza, injectabl e, quadrivalent, preservative free Dr. Chinyere Quigley Work Phone: [facility] 02-23-2022 influenza, seasonal, injectable Dr. Chinyere Quigley Work Phone: [facility] 02-23-2022 influenza virus vacc ine, unspecified formulation Jose Daniel Wood DESKTOP SUPPORT CONSULTANT-CIRCULAR [employer]USER Work Phone: [facility] Work Phone: 04-14-2021 Moderna COVID-19 Vac cine 100 MCG/0.5ML Intramuscular Suspension Chinyere Quigley Work Phone: [facility] Comment on above: Series: 02-21-2021 influenza, seasonal, injectable Chinyere Quigley Work Phone: [facility] Work Phone: Comment on above: Series: 02-02-2021 influenza, injectabl e, quadrivalent, preservative free Dr. Chinyere Quigley Work Phone: [facility] 02-02-2021 influenza, seasonal, injectable Dr. Chinyere Quigley Work Phone: [facility] 02-02-2021 influenza, seasonal, injectable, preservative free Chinyere Quigley Work Phone: [facility] Work Phone: 05-26-2020 Moderna COVID-19 Vac cine 100 MCG/0.5ML Intramuscular Suspension Chinyere Quigley Work Phone: [facility] Comment on above: Series: 04-28-2020 Moderna COVID-19 Vac cine 100 MCG/0.5ML Intramuscular Suspension Chinyere Quigley Work Phone: [facility] Comment on above: Series: 01-26-2020 influenza, seasonal, injectable Chinyere Quigley Work Phone: [facility] Work Phone: Comment on above: Series: 01-20-2020 influenza, injectabl e, quadrivalent, preservative free Dr. Chinyere Quigley Work Phone: [facility] 01-20-2020 influenza, seasonal, injectable Dr. Chinyere Quigley Work Phone: [facility] 02-05-2019 influenza, injectabl e, quadrivalent, preservative free Dr. Chinyere Quigley Work Phone: [facility] 02-05-2019 influenza, seasonal, injectable Dr. Chinyere Quigley Work Phone: [facility] 01-16-2018 influenza, injectabl e, quadrivalent, preservative free Dr. Chinyere Quigley Work Phone: [facility] 01-16-2018 influenza, seasonal, injectable Dr. Chinyere Quigley Work Phone: [facility] 03-08-2017 influenza, injectabl e, quadrivalent, preservative free Dr. Chinyere Quigley Work Phone: [facility] 03-08-2017 influenza, seasonal, injectable Dr. Chinyere Quigley Work Phone: [facility] 01-20-2016 influenza, injectabl e, quadrivalent, preservative free Dr. Chinyere Quigley Work Phone: [facility] 01-20-2016 influenza, seasonal, injectable Dr. Chinyere Quigley Work Phone: [facility] 01-20-2015 influenza, injectabl e, quadrivalent, preservative free Dr. Chinyere Quigley Work Phone: [facility] 01-20-2015 influenza, seasonal, injectable Dr. Chinyere Quigley Work Phone: [facility] 09-07-2014 hepatitis B vaccine, pediatric or pediatric/adolescent dosage Dr. Chinyere Quigley Work Phone: [facility] 04-01-2014 hepatitis B vaccine, pediatric or pediatric/adolescent dosage Dr. Chinyere Quigley Work Phone: [facility] 04-01-2014 measles, mumps and rubella virus vaccine Dr. Chinyere Quigley Work Phone: [facility] 03-02-2014 hepatitis B vaccine, pediatric or pediatric/adolescent dosage Dr. Chinyere Quigley Work Phone: [facility] 03-02-2014 measles, mumps and rubella virus vaccine Dr. Chinyere Quigley Work Phone: [facility] 02-21-2011 pneumococcal polysaccharide vaccine, 23 valent Jose Daniel Wood DESKTOP SUPPORT CONSULTANT-CIRCULAR [employer]W [employer]USER Work Phone: [facility] Work Phone: 02-21-2011 pneumococcal vaccine , unspecified formulation Dr. Chinyere Quigley Work Phone: [facility] Payers Date Payer Category Payer Self-pay [id number] 2022 [facility] Care (Private) [facility] [id number] 2022 Private Health Insurance [id number] 2022 Unknown [id number] 2017 Unknown 1965 Unknown [id number] 2.16.840.1.832477.3.579.2. 1963 Unknown [id number] 2.16.840.1.034612.3.579.2. 1963 Unknown [id number] 2.16.840.1.797182.3.579.2. 1963 Unknown [id number] 2.16.840.1.799941.3.579.2. 1963 Unknown [id number] 2.16.840.1.299187.3.579.2. 1963 Unknown [id number] 2.16.840.1.821404.3.579.2. 1963 Unknown [id number] 2.16.840.1.658837.3.579.2. 1963 Unknown [id number] 2.16.840.1.821148.3.579.2. 1963 Unknown [id number] 2.16.840.1.758716.3.579.2. 1963 Unknown [id number] 2.16.840.1.096057.3.579.2. 1963 Unknown [id number] 2.16.840.1.636398.3.579.2. 1963 Unknown [id number] 2.16.840.1.449496.3.579.2. 1068 1963 Unknown [id number] 2.16.840.1.848020.3.579.2. 1069 1963 Unknown [id number] 2.16.840.1.027779.3.579.2. 1243 1963 Unknown [id number] 2.16.840.1.976646.3.579.2. 1245 1963 Unknown [id number] 2.16.840.1.403362.3.579.2. 1245 1963 Unknown [id number] 2.16.840.1.375717.3.579.2. 1244 1963 Unknown [id number] 2.16.840.1.095290.3.579.2. 1244 Unknown [id number] Unknown [id number] 2.16.840.1.700231.3.579.2. 462 Unknown [id number] 2.16.840.1.611411.3.579.2. 462 Unknown [id number] 2.16.840.1.026695.3.579.2. 462 Unknown [id number] 2.16.840.1.191035.3.579.2. 462 Unknown [id number] 2.16.840.1.596820.3.579.2. 462 Social History Date Type Detail Facility Start: 11-09-2022 End: 01-26-2025 Denies alcohol consumption Denies alcohol consumption [facility] Work Phone: Start: 03-19-2022 End: 03-18-2023 Tobacco smoking status NHIS Unknown if ever smoked [facility] Start: 03-31-2020 None [facility] Start: 03-31-2020 Alone [facility] Start: 05-09-2019 Cigarettes [facility] Start: 1965 Sex Assigned At Female [facility] Start: 10-02-2022 Tobacco smoking status NHIS Smokes tobacco daily [facility] Work Phone: Start: 04-23-1992 End: 01-19-2023 History of tobacco use Cigarette Smoker [facility] Work Phone: Start: 10-02-2022 End: 2023 Tobacco use and exposure Smokeless tobacco non-user [facility] Work Phone: Start: 11-09-2022 End: 04-05-2023 Alcohol intake Defer [facility] Work Phone: Start: 11-09-2022 End: 01-26-2025 Tobacco use panel [facility] Work Phone: Start: 1965 Sex Assigned At Not on file [facility] Work Phone: Start: 10-30-2022 End: 2023 Exposure to SARS-CoV-2 (event) Not sure [facility] Start: 12-29-2022 Gender identity Identifies as female gender (finding) [facility] Work Phone: Start: 03-18-2022 How hard is it for you to pay for the very basics like food, housing, medical care, and heating Not hard at all [facility] In the past 12 months, was there a time when you were not able to pay the mortgage or rent on time? No [facility] Start: 02-19-2023 End: 2023 Tobacco smoking status NHIS Ex-smoker [facility] Start: 04-23-1992 End: 01-19-2023 History of tobacco use Current smoker [facility] Start: 02-19-2023 End: 01-26-2025 Alcohol intake Ex-drinker (finding) [facility] Start: 02-19-2023 Tobacco Comment Patient quite smoking 01/19/23 when she was admitted to the [facility] Start: 02-19-2023 Sexual orientation Heterosexual (lyn townsend) [facility] NEGATED: Highlighted row - - [facility] Work Phone: Functional Status Date Assessment Result Facility 01-26-2025 Functional status 126/82 [facility] Work Phone: 01-26-2025 Vital signs 83 01/26/2025 11 :23 AM EDT Georgina Sánchez CMA [facility] Work Phone: 01-26-2025 Patient Health Questionnaire 2 item (PHQ-2) [Reported] [facility] Work Phone: 01-26-2025 [facility] Work Phone: NEGATED: Highlighted row Functional performance Functional status health issues are not documented Disease [facility] Work Phone: Mental Status Date Assessment Result Facility NEGATED: Highlighted row Cognitive function [Interpretation] Cognitive status health issues are not documented Disease [facility] Work Phone: Clinical Notes 10-21-2020 to 01-26-2025 Assessment & Plan Note - GUSTAVO Vaughan - 01/26/2025 11:20 AM EDTAssessment & Plan Note - GUSTAVO Vaughan - 01/26/2025 11:20 AM EDTPatient InstructionsPatient Instructions Note Date & Type Note Facility 01-26-2025 Evaluation + Plan note Associated Problem(s): Encounter for immunization Administer influenza vaccination today Orders: Flu vaccine, trivalent, preservative free, age 6 months and greater (Fluraix/Fluzone/Flulaval) [facility] Work Phone: 01-26-2025 Evaluation + Plan note Associated Problem(s): Hyperlipemia Continue Avelina Has lost 18 pounds since last office visit through dietary modifications 10-year ASCVD risk 4.2% Blood work from March 2024 shows total cholesterol 152, triglycerides 92, HDL 58, LDL 76 Orders: Lipid Panel; Future [facility] Work Phone: 01-26-2025 Evaluation + Plan note Associated Problem(s): Hypertension [facility] blood pressure readings: 120s/80s Denies dizziness, lightheadedness, headache, chest pain or syncopal episodes Most recent laboratory findings show from March 2024 glucose 97, creatinine 0.72, BUN 14, GFR 88, sodium 136, potassium 4.1 Continue Zestoretic and Lasix Orders: Comprehensive Metabolic Panel; Future CBC; Future [facility] Work Phone: 01-26-2025 Evaluation + Plan note Associated Problem(s): Prediabetes A1c 5.8% Has lost 18 pounds through dietary modifications Orders: Hemoglobin A1C; Future [facility] Work Phone: 01-26-2025 Evaluation + Plan note Associated Problem(s): Pulmonary hypertension (Multi) Seen by cardiology at [facility] and would like to have HST completed and start CPAP, if dx w/ ANIBAL, before repeating echocardiogram to determine if she has she has PH. She has yet to schedule her HST. Continues on oxygen nocturnally and as needed throughout the day. Discussed evaluation for chronic lung conditions with PFT testing. Using albuterol daily. At this point she wishes to defer testing until construction completed at her place of employment as things are too chaotic right now [facility] Work Phone: 01-26-2025 Evaluation + Plan note Associated Problem(s): Migraine without aura and without status migrainosus, not intractable Migraines: a few per month. Imitrex effective [facility] Work Phone: 01-26-2025 Evaluation + Plan note Associated Problem(s): GERD (gastroesophageal reflux disease) On Dexilant daily No difficulty or painful swallowing. is due for her colorectal cancer screening. She has an established GI in [place] and needs to make an appointment to have colonoscopy and EGD completed. [facility] Work Phone: 01-26-2025 History of Present illness Narrative Subjective Patient ID: Isabella Parnell is a 59 y.o. female who presents for Follow-up (6 mo fu ). Isabella comes to the office for a visit Request blood work to be ordered for her upcoming wellness exam Review of Systems Respiratory: Positive for cough (intermittent) and wheezing. Gastrointestinal: Negative for abdominal pain, constipation and diarrhea. Musculoskeletal: Positive for arthralgias and myalgias. Skin: Negative for pallor and wound. Neurological: Positive for headaches. Negative for dizziness and light-headedness. Objective BP 126/82 Pulse 83 Ht 1.702 m (5' 7) Wt 134 kg (295 lb 12.8 oz) SpO2 96% BMI 46.33 kg/m Physical Exam Vitals reviewed. Constitutional: Appearance: She is obese. HENT: Head: Normocephalic. Neck: Thyroid: No thyromegaly or thyroid tenderness. Vascular: No carotid bruit. Cardiovascular: Rate and Rhythm: Normal rate and regular rhythm. Heart sounds: Normal heart sounds. Pulmonary: Effort: Pulmonary effort is normal. Breath sounds: Normal breath sounds. Abdominal: General: Abdomen is protuberant. Bowel sounds are decreased. Palpations: Abdomen is soft. Tenderness: There is no abdominal tenderness. Musculoskeletal: Cervical back: Normal range of motion. Right lower leg: No edema. Left lower leg: No edema. Lymphadenopathy: Cervical: No cervical adenopathy. Skin: General: Skin is warm and dry. Capillary Refill: Capillary refill takes less than 2 seconds. Neurological: General: No focal deficit present. Mental Status: She is alert and oriented to person, place, and time. Psychiatric: Attention and Perception: Attention normal. Mood and Affect: Mood normal. Speech: Speech normal. Assessment/Plan Assessment & Plan Encounter for immunization Administer influenza vaccination today Orders: Flu vaccine, trivalent, preservative free, age 6 months and greater (Fluraix/Fluzone/Flulaval) Encounter for screening mammogram for breast cancer Schedule mammography Orders: BI mammo bilateral screening tomosynthesis; Future Mixed hyperlipidemia Continue Avelina Has lost 18 pounds since last office visit through dietary modifications 10-year ASCVD risk 4.2% Blood work from March 2024 shows total cholesterol 152, triglycerides 92, HDL 58, LDL 76 Orders: Lipid Panel; Future [facility] blood pressure readings: 120s/80s Denies dizziness, lightheadedness, headache, chest pain or syncopal episodes Most recent laboratory findings show from March 2024 glucose 97, creatinine 0.72, BUN 14, GFR 88, sodium 136, potassium 4.1 Continue Zestoretic and Lasix Orders: Comprehensive Metabolic Panel; Future CBC; Future Prediabetes A1c 5.8% Has lost 18 pounds through dietary modifications Orders: Hemoglobin A1C; Future Pulmonary hypertension (Multi) Seen by cardiology at [facility] and would like to have HST completed and start CPAP, if dx w/ ANIBAL, before repeating echocardiogram to determine if she has she has PH. She has yet to schedule her HST. Continues on oxygen nocturnally and as needed throughout the day. Discussed evaluation for chronic lung conditions with PFT testing. Using albuterol daily. At this point she wishes to defer testing until construction completed at her place of employment as things are too chaotic right now Migraine without aura and without status migrainosus, not intractable Migraines: a few per month. Imitrex effective Gastroesophageal reflux disease without esophagitis On Dexilant daily No difficulty or painful swallowing. is due for her colorectal cancer screening. She has an established GI in [place] and needs to make an appointment to have colonoscopy and EGD completed. documented in this encounter [facility] Work Phone: 01-26-2025 Instructions GUSTAVO Vaughan - 01/26/2025 11:20 AM EDT Please schedule a wellness exam Complete your blood work prior to your next office visit and we will review those results with you at your next visit Requisition provided today to have mammogram completed at [facility] You received your influenza vaccination today documented in this encounter [facility] Work Phone: 01-26-2025 Miscellaneous Notes Associated Problem(s): Encounter for immunization Administer influenza vaccination today Orders: Flu vaccine, trivalent, preservative free, age 6 months and greater (Fluraix/Fluzone/Flulaval) Associated Problem(s): Hyperlipemia Continue Crestor Has lost 18 pounds since last office visit through dietary modifications 10-year ASCVD risk 4.2% Blood work from March 2024 shows total cholesterol 152, triglycerides 92, HDL 58, LDL 76 Orders: Lipid Panel; Future Associated Problem(s): Hypertension [facility] blood pressure readings: 120s/80s Denies dizziness, lightheadedness, headache, chest pain or syncopal episodes Most recent laboratory findings show from March 2024 glucose 97, creatinine 0.72, BUN 14, GFR 88, sodium 136, potassium 4.1 Continue Zestoretic and Lasix Orders: Comprehensive Metabolic Panel; Future CBC; Future Associated Problem(s): Prediabetes A1c 5.8% Has lost 18 pounds through dietary modifications Orders: Hemoglobin A1C; Future Associated Problem(s): Pulmonary hypertension (Multi) Seen by cardiology at [facility] and would like to have HST completed and start CPAP, if dx w/ ANIBAL, before repeating echocardiogram to determine if she has she has PH. She has yet to schedule her HST. Continues on oxygen nocturnally and as needed throughout the day. Discussed evaluation for chronic lung conditions with PFT testing. Using albuterol daily. At this point she wishes to defer testing until construction completed at her place of employment as things are too chaotic right now Associated Problem(s): Migraine without aura and without status migrainosus, not intractable Migraines: a few per month. Imitrex effective Associated Problem(s): GERD (gastroesophageal reflux disease) On Dexilant daily No difficulty or painful swallowing. is due for her colorectal cancer screening. She has an established GI in [place] and needs to make an appointment to have colonoscopy and EGD completed. documented in this encounter [facility] Work Phone: 2023 History of Present illness Narrative Subjective Patient ID: Isabella Parnell is a 58 y.o. female who presents for Controlled Substance (3 mo CSA ). Isabella comes to office for 3 MO CSA for Ativan. Last refill: 06/27/23. Feels Ativan helps with anxiety. Appetite returned, gained 47#. Admits to eating unhealthy and eating all the time which is what she feels has contributed to her weight gain. She is interested in enrolling in a [facility] thru [facility] that offers nutritional counseling. I have personally reviewed the OARRS report. I have considered the risks of abuse, dependence, addiction and diversion. I believe that it is clinically appropriate for the patient to be prescribed this medication. Scheduled to see cardiology in August for ? Pulmonary HTN, No chest pain/sob/dyspnea. Wears compression stocking danielle lower extremities. Returned to work in May & not moving as much as she had when she was at home. No longer follows w/ [facility]. Wound to R groin region completely healed. HST- needs to complete Labs 03/2023; recheck labs within the next week Scheduled to see Dr. Lew patient safety sitter in September to get re-established & get scheduled for EGD/colonoscopy for chronic GERD Trigger finger 3rd R - steroid injection 3 wks ago Migraines-3 weeks ago, infreq use of imitrex Albuterol infreq use anel. W/ walking long distances. Stopped smoking in Dec. Cough much better Review of Systems Constitutional: Positive for unexpected weight change. Negative for fatigue. Respiratory: Negative for cough, shortness of breath and wheezing. Cardiovascular: Positive for leg swelling. Negative for chest pain and palpitations. Gastrointestinal: Negative for abdominal distention and abdominal pain. Objective BP 120/68 Pulse 92 Ht 1.702 m (5' 7) Wt 135 kg (297 lb 12.8 oz) SpO2 94% BMI 46.64 kg/m Physical Exam Vitals and nursing note reviewed. Constitutional: Appearance: Normal appearance. HENT: Head: Normocephalic. Neck: Thyroid: No thyromegaly or thyroid tenderness. Cardiovascular: Rate and Rhythm: Normal rate and regular rhythm. Heart sounds: Normal heart sounds. No murmur heard. Pulmonary: Effort: Pulmonary effort is normal. Breath sounds: Normal breath sounds. Musculoskeletal: Cervical back: Normal range of motion. Right lower le+ Edema present. Left lower le+ Edema present. Skin: General: Skin is warm and dry. Neurological: General: No focal deficit present. Mental Status: She is alert and oriented to person, place, and time. Psychiatric: Mood and Affect: Mood normal. Thought Content: Thought content normal. Assessment/Plan Problem List Items Addressed This Visit ICD-10-CM Anxiety and depression F41.9, F32.A Relevant Orders Follow Up In Primary Care - Established Weight gain - Primary R63.5 Relevant Orders Referral to Nutrition Services Hemoglobin A1C Thyroid Stimulating Hormone Comprehensive Metabolic Panel CBC Peripheral neuropathy G62.9 Relevant Medications gabapentin (Neurontin) 300 mg capsule Pulmonary hypertension (CMS/HCC) I27.20 RESOLVED: Acute respiratory failure with hypoxia (CMS/HCC) J96.01 Pain in both lower extremities M79.604, M79.605 Relevant Medications meloxicam (Mobic) 7.5 mg tablet Muscle spasm M62.838 Relevant Medications cyclobenzaprine (Flexeril) 10 mg tablet documented in this encounter [facility] Work Phone: 2023 Instructions GUSTAVO Vaughan - 2023 3:20 PM EDT Office visit in 3 months Check labs- through [facility] Referral to [facility] Weight Program documented in this encounter [facility] Work Phone: 05-14-2023 Note HNO ID: [id number] Author: ELROY CALVO APRN.CNP Service: ? Author Type: Nurse Practitioner Type: Progress Notes Filed: 05/14/2023 14:10 Note Text: WOUND CENTER PROGRESS NOTE PATIENT NAME: Carolyn Parnell DATE OF FOLLOW UP: 05/14/2023 REASON FOR FOLLOW UP: right groin wound HISTORY OF PRESENT ILLNESS: Carolyn Parnell is a 57 year old y/o female w/ hx HTN, HLD, anxiety, obesity who presents for wound assessment and treatment evaluation of right groin wound. Pt started having lower pelvic/right groin pain Sept 2022 (01/16/2023). She went to the ED for evaluation and was subsequently admitted (01/17/2023-01/26/2023) for right groin soft tissue infection. She became septic while hospitalized requiring intubation and mechanical ventilation. CT abdomen/pelvis showed gas within the soft tissues of the right side of mons pubis extending into the right groin; gas forming infection suspected. She was evaluated by infectious disease and was treated with IV antibiotics throughout the hospital stay. She underwent surgical debridement on 01/18/2023 and another bedside debridement on 01/25/2023. Tissue culture grew rare Staph simulans and few Actinomyces species. Her hospitalization was also complicated by episodes of shortness of breath, requiring O2 and IV Lasix. She was discharged to [facility] on 01/26/2023. She was to be evaluated for possible wound vac placement, but the wound vac was not started. She was discharged home with [facility] on 02/09/2023. Pt lives alone and is unable to take care of the wound herself d/t the location of the wound. She is unable to visualize the wound d/t wound location in groin under pannus to appropriately dress the wound. She was smoking up until her hospitalization and has not smoked since. Location: right groin Onset: 01/16/2023 Aggravating factors: Infection and obesity Wound etiology: infection Associated pain with wound: No Relieving factors for wound pain: n/a Treatments: Current: silver alginate Past: Hydrofera blue, Drawtex, wound vac, silver alginate, Dakin's moistened gauze, saline moistened gauze No past medical history on file. No past surgical history on file. ALLERGIES ALLERGIES Allergen Reactions Morphine Hives Naproxen Hives CURRENT OUTPATIENT MEDICATIONS OXYGEN, HOME THERAPY, 2 L/min by Nasal Cannula route continuous. Dexlansoprazole 60 mg CpDM Take 60 mg by mouth once daily. furosemide (LASIX) 20 mg tablet Take 1 tablet by mouth two times a day. hydroCHLOROthiazide 12.5 mg tablet Take 1 tablet by mouth once daily. lisinopril (ZESTRIL) 10 mg tablet Take 1 tablet by mouth once daily. miconazole 2 % powder Apply 1 application to affected area two times a day. SUMAtriptan (IMITREX) 50 mg tablet Take 1 tablet (50 mg) by mouth as needed for migraine headache (see administration instructions). May repeat dose after 2 hours if needed. Maximum daily dose is 200 mg per day. zinc oxide 20 % ointment Apply to affected area as needed. (Patient taking differently: Apply 1 application to affected area two times a day as needed for dry skin.) sodium hypochlorite (DAKIN'S QUARTER STRENGTH) 0.125 % soln Irrigate 5 mL as instructed once daily. acetaminophen (TYLENOL) 500 mg tablet Take 2 tablets by mouth every 8 hours as needed for pain or fever (specify). albuterol HFA (VENTOLIN HFA) 90 mcg/actuation inhaler Inhale 2 Puffs as instructed every 4 hours as needed for wheezing/shortness of breath. gabapentin (NEURONTIN) 300 mg capsule Take 300 mg by mouth three times a day. Do not start before February 11, 2023. rosuvastatin (CRESTOR) 10 mg tablet Take 10 mg by mouth every other day. LORazepam (ATIVAN) 1 mg tablet Take 1 mg by mouth at bedtime as needed for anxiety. Do not start before February 11, 2023. famotidine (PEPCID) 20 mg tablet Take 1 tablet by mouth two times a day as needed (heartburn). (Patient not taking: Reported on 02/19/2023) [DISCONTINUED] escitalopram oxalate (LEXAPRO) 10 mg tablet Take 10 mg by mouth once daily. (Patient not taking: Reported on 02/19/2023) No family history on file. Social History Tobacco Use Smoking status: Former Packs/day: 1.00 Years: 30.00 Additional pack years: 0.00 Total pack years: 30.00 Types: Cigarettes Start date: 1992 Quit date: 01/19/2023 Years since quittin.3 Smokeless tobacco: Never Tobacco comments: Patient quite smoking 01/19/23 when she was admitted to the hospital Substance Use Topics Alcohol use: Not Currently Drug use: Never REVIEW OF SYSTEMS: GENERAL: No weight loss, malaise or fevers RESPIRATORY: Negative for cough, hemoptysis, wheezing, COPD, dyspnea or shortness of breath CARDIOVASCULAR: Negative for chest pain, leg swelling, hypertension, CHF or palpitations GI: No nausea, vomiting, or diarrhea SKIN: Positive for wound, right groin. No erythema of abdominal fold/pannus HEMATOLOGY/LYMPHOLOGY: Negative for prolonged b (more content not included)... [facility] 04-30-2023 Note HNO ID: [id number] Author: ELROY CALVO APRN.CIRCULAR [employer] FUSER Service: ? Author Type: Nurse Practitioner Type: Progress Notes Filed: 04/30/2023 14:45 Note Text: WOUND CENTER PROGRESS NOTE PATIENT NAME: Carolyn Parnell DATE OF FOLLOW UP: 04/30/2023 REASON FOR FOLLOW UP: right groin wound HISTORY OF PRESENT ILLNESS: Carolyn Parnell is a 57 year old y/o female w/ hx HTN, HLD, anxiety, obesity who presents for wound assessment and treatment evaluation of right groin wound. Pt started having lower pelvic/right groin pain Sept 2022 (01/16/2023). She went to the ED for evaluation and was subsequently admitted (01/17/2023-01/26/2023) for right groin soft tissue infection. She became septic while hospitalized requiring intubation and mechanical ventilation. CT abdomen/pelvis showed gas within the soft tissues of the right side of mons pubis extending into the right groin; gas forming infection suspected. She was evaluated by infectious disease and was treated with IV antibiotics throughout the hospital stay. She underwent surgical debridement on 01/18/2023 and another bedside debridement on 01/25/2023. Tissue culture grew rare Staph simulans and few Actinomyces species. Her hospitalization was also complicated by episodes of shortness of breath, requiring O2 and IV Lasix. She was discharged to [facility] on 01/26/2023. She was to be evaluated for possible wound vac placement, but the wound vac was not started. She was discharged home with [facility] on 02/09/2023. Pt lives alone and is unable to take care of the wound herself d/t the location of the wound. She is unable to visualize the wound d/t wound location in groin under pannus to appropriately dress the wound. She was smoking up until her hospitalization and has not smoked since. Pt reports the wound was closed last week. The area has been kept open. Location: right groin Onset: 01/16/2023 Aggravating factors: Infection and obesity Wound etiology: infection Associated pain with wound: No Relieving factors for wound pain: n/a Treatments: Current: none Past: Hydrofera blue, Drawtex, wound vac, silver alginate, Dakin's moistened gauze, saline moistened gauze No past medical history on file. No past surgical history on file. ALLERGIES ALLERGIES Allergen Reactions Morphine Hives Naproxen Hives CURRENT OUTPATIENT MEDICATIONS OXYGEN, HOME THERAPY, 2 L/min by Nasal Cannula route continuous. Dexlansoprazole 60 mg CpDM Take 60 mg by mouth once daily. famotidine (PEPCID) 20 mg tablet Take 1 tablet by mouth two times a day as needed (heartburn). (Patient not taking: Reported on 02/19/2023) furosemide (LASIX) 20 mg tablet Take 1 tablet by mouth two times a day. hydroCHLOROthiazide 12.5 mg tablet Take 1 tablet by mouth once daily. lisinopril (ZESTRIL) 10 mg tablet Take 1 tablet by mouth once daily. miconazole 2 % powder Apply 1 application to affected area two times a day. SUMAtriptan (IMITREX) 50 mg tablet Take 1 tablet (50 mg) by mouth as needed for migraine headache (see administration instructions). May repeat dose after 2 hours if needed. Maximum daily dose is 200 mg per day. zinc oxide 20 % ointment Apply to affected area as needed. (Patient taking differently: Apply 1 application to affected area two times a day as needed for dry skin.) sodium hypochlorite (DAKIN'S QUARTER STRENGTH) 0.125 % soln Irrigate 5 mL as instructed once daily. acetaminophen (TYLENOL) 500 mg tablet Take 2 tablets by mouth every 8 hours as needed for pain or fever (specify). albuterol HFA (VENTOLIN HFA) 90 mcg/actuation inhaler Inhale 2 Puffs as instructed every 4 hours as needed for wheezing/shortness of breath. gabapentin (NEURONTIN) 300 mg capsule Take 300 mg by mouth three times a day. Do not start before February 11, 2023. [DISCONTINUED] escitalopram oxalate (LEXAPRO) 10 mg tablet Take 10 mg by mouth once daily. (Patient not taking: Reported on 02/19/2023) rosuvastatin (CRESTOR) 10 mg tablet Take 10 mg by mouth every other day. LORazepam (ATIVAN) 1 mg tablet Take 1 mg by mouth at bedtime as needed for anxiety. Do not start before February 11, 2023. No family history on file. Social History Tobacco Use Smoking status: Former Packs/day: 1.00 Years: 30.00 Additional pack years: 0.00 Total pack years: 30.00 Types: Cigarettes Start date: 1992 Quit date: 01/19/2023 Years since quittin.2 Smokeless tobacco: Never Tobacco comments: Patient quite smoking 01/19/23 when she was admitted to the hospital Substance Use Topics Alcohol use: Not Currently Drug use: Never REVIEW OF SYSTEMS: GENERAL: No weight loss, malaise or fevers RESPIRATORY: Negative for cough, hemoptysis, wheezing, COPD, dyspnea or shortness of breath CARDIOVASCULAR: Negative for chest pain, leg swelling, hypertension, CHF or palpitations GI: No nausea, vomiting, or diarrhea MUSCULOSKELETAL: Negative for joint pain or swelling, back pain (more content not included)... [facility] 04-23-2023 Miscellaneous Notes SITUATION: Assisted routine visit completed today. only patient also present during today's visit. Allergies--reviewed Medications--reviewed current medications Falls--None DME-NONE BACKGROUND: Reason for Home Care: sepsis ASSESSMENT: SN greeted at door by patient no DME and demonstrates stable gait. Patient appears in no acute distress. Patient/CG concerns verbalized today: none voiced Vitals (see flow sheet for details): stable SN findings today: Wound care to R groin per orders. Pt tolerated well. Pt is seen at wound center for monitoring. Pt denies pain. Pt wears O2 prn PO 99% on O2. Pt checks PO on RA throughout the day, pt reports PO stays in the 90s. See intervention summary for education details. Patient demonstrated a need for further skilled SN services for wound/skin care. Current Discharge plan: self-care RECOMMENDATION: Next visit to focus on (be specific): wound care R groin documented in this encounter [facility] 04-15-2023 Miscellaneous Notes SITUATION: Assisted routine visit completed today. only patient also present during today's visit. patient reports the following: Allergies--reviewed Medications--reviewed current medications Falls--None DME-Reviewed and added to chart BACKGROUND: Reason for Home Care: pt with chronic resp failure and wound to right groin. ASSESSMENT: SN greeted at door by patient no DME and demonstrates stable gait. Patient appears in no acute distress. Patient/CG concerns verbalized today: anxious to get back to work. Hoping to be cleared to do so, soon. Vitals (see flow sheet for details): stable SN findings today: Pt appears well. VSS. Lungs clear. Wound clean and pink. Dressed per order and pt tolerated well. See wound assessment. Has been trying to wean herself off oxygen and was satruating 96% on RA. SN reminds her that she should not allow herself to go below 92%. Pt verbalizes understanding. See intervention summary for education details. Patient demonstrated a need for further skilled SN services for chronic disease management & education and wound/skin care. Current Discharge plan: self-care RECOMMENDATION: Next visit to focus on (be specific): Wound care.. consider DC soon? documented in this encounter [facility] 04-11-2023 Note HNO ID: [id number] Author: Elroy Calvo APRN.MELONY Service: ? Author Type: Nurse Practitioner Type: Progress Notes Filed: 04/11/2023 2:29 PM Note Text: WOUND CENTER PROGRESS NOTE PATIENT NAME: Carolyn Parnell DATE OF FOLLOW UP: 04/11/2023 REASON FOR FOLLOW UP: right groin wound HISTORY OF PRESENT ILLNESS: Carolyn Parnell is a 57 year old y/o female w/ hx HTN, HLD, anxiety, obesity who presents for wound assessment and treatment evaluation of right groin wound. Pt started having lower pelvic/right groin pain Sept 2022 (01/16/2023). She went to the ED for evaluation and was subsequently admitted (01/17/2023-01/26/2023) for right groin soft tissue infection. She became septic while hospitalized requiring intubation and mechanical ventilation. CT abdomen/pelvis showed gas within the soft tissues of the right side of mons pubis extending into the right groin; gas forming infection suspected. She was evaluated by infectious disease and was treated with IV antibiotics throughout the hospital stay. She underwent surgical debridement on 01/18/2023 and another bedside debridement on 01/25/2023. Tissue culture grew rare Staph simulans and few Actinomyces species. Her hospitalization was also complicated by episodes of shortness of breath, requiring O2 and IV Lasix. She was discharged to [facility] on 01/26/2023. She was to be evaluated for possible wound vac placement, but the wound vac was not started. She was discharged home with [facility] on 02/09/2023. Pt lives alone and is unable to take care of the wound herself d/t the location of the wound. She is unable to visualize the wound d/t wound location in groin under pannus to appropriately dress the wound. She was smoking up until her hospitalization and has not smoked since. She has assistance of [facility] for wound care twice a week Location: right groin Onset: 01/16/2023 Aggravating factors: Infection and obesity Wound etiology: infection Associated pain with wound: No Relieving factors for wound pain: n/a Treatments: Current: silver alginate, Drawtex Past: wound vac, silver alginate, Dakin's moistened gauze, saline moistened gauze No past medical history on file. No past surgical history on file. ALLERGIES ALLERGIES Allergen Reactions Morphine Hives Naproxen Hives CURRENT OUTPATIENT MEDICATIONS OXYGEN, HOME THERAPY, 2 L/min by Nasal Cannula route continuous. Dexlansoprazole 60 mg CpDM Take 60 mg by mouth once daily. furosemide (LASIX) 20 mg tablet Take 1 tablet by mouth two times a day. hydroCHLOROthiazide 12.5 mg tablet Take 1 tablet by mouth once daily. lisinopril (ZESTRIL) 10 mg tablet Take 1 tablet by mouth once daily. miconazole 2 % powder Apply 1 application to affected area two times a day. SUMAtriptan (IMITREX) 50 mg tablet Take 1 tablet (50 mg) by mouth as needed for migraine headache (see administration instructions). May repeat dose after 2 hours if needed. Maximum daily dose is 200 mg per day. zinc oxide 20 % ointment Apply to affected area as needed. (Patient taking differently: Apply 1 application to affected area two times a day as needed for dry skin.) sodium hypochlorite (DAKIN'S QUARTER STRENGTH) 0.125 % soln Irrigate 5 mL as instructed once daily. acetaminophen (TYLENOL) 500 mg tablet Take 2 tablets by mouth every 8 hours as needed for pain or fever (specify). albuterol HFA (VENTOLIN HFA) 90 mcg/actuation inhaler Inhale 2 Puffs as instructed every 4 hours as needed for wheezing/shortness of breath. gabapentin (NEURONTIN) 300 mg capsule Take 300 mg by mouth three times a day. Do not start before February 11, 2023. rosuvastatin (CRESTOR) 10 mg tablet Take 10 mg by mouth every other day. LORazepam (ATIVAN) 1 mg tablet Take 1 mg by mouth at bedtime as needed for anxiety. Do not start before February 11, 2023. famotidine (PEPCID) 20 mg tablet Take 1 tablet by mouth two times a day as needed (heartburn). (Patient not taking: Reported on 02/19/2023) [DISCONTINUED] escitalopram oxalate (LEXAPRO) 10 mg tablet Take 10 mg by mouth once daily. (Patient not taking: Reported on 02/19/2023) No family history on file. Social History Tobacco Use Smoking status: Former Packs/day: 1.00 Years: 30.00 Additional pack years: 0.00 Total pack years: 30.00 Types: Cigarettes Start date: 1992 Quit date: 01/19/2023 Years since quittin.2 Smokeless tobacco: Never Tobacco comments: Patient quite smoking 01/19/23 when she was admitted to the hospital Substance Use Topics Alcohol use: Not Currently Drug use: Never REVIEW OF SYSTEMS: GENERAL: No weight loss, malaise or fevers RESPIRATORY: Negative for cough, hemoptysis, wheezing, COPD, dyspnea or shortness of breath CARDIOVASCULAR: Negative for chest pain, leg swelling, hypertension, CHF or palpitations GI: No nausea, vomiting, or diarrhea MUSCULOSKELETAL: Negative for joint pain or swelling, back pain or mus (more content not included)... [facility] 04-05-2023 History of Present illness Narrative Associated Order(s): Ear Cerumen Removal Subjective Patient ID: Isabella Parnell is a 57 y.o. female who presents for Controlled Substance Agreement. Isabella comes to the office for a controlled substance visit Recovering from right skin ulcer from abscess in Dec. Receiving home health care 3 times a week with dressing changes. Wound VAC completed beginning of this month. Quit smoking in December. Weight down 1# since last month. Wound closing nicely. Reviewed labs today, A1c improved to 5.8%. 10-year ASCVD risk 3.6% Had COVID last month, fatigue better. Ears feel plugged. No anti-viral tx. Migraines- one per month. Refill Imitrex Received influenza vaccination 01/30 @ [place]. Requests pneumococcal vaccination, recommended RSV vaccine. Will schedule visit w/ patient safety sitter for EGD for Salomon's & colonoscopy. Denies difficulty or pain with swallowing. In-lab sleep study needs done thru [facility]-no fatigue, shortness of breath or chest pain. Peripheral edema improved on Lasix twice a day. Wants to see cardiology through [facility] Dr. Ranjeet Cannon. Referral placed today Patient ID: Carolyn Mason is a 57 y.o. female. Ear Cerumen Removal Date/Time: 04/05/2023 2:47 PM Performed by: GUSTAVO Vaughan Authorized by: GUSTAVO Vaughan Consent: Consent obtained: Verbal Consent given by: Patient Risks, benefits, and alternatives were discussed: yes Risks discussed: Dizziness, pain and incomplete removal Alternatives discussed: Delayed treatment Mcclelland protocol: Patient identity confirmed: Verbally with patient Procedure details: Location: L ear and R ear Procedure type: irrigation Procedure outcomes: cerumen removed Post-procedure details: Inspection: Ear canal clear Hearing quality: Improved Procedure completion: Tolerated well, no immediate complications Review of Systems Constitutional: Negative for chills, fatigue and fever. Weight stable Respiratory: Positive for apnea. Negative for cough, shortness of breath and wheezing. Cardiovascular: Positive for leg swelling. Negative for chest pain and palpitations. Gastrointestinal: Negative for abdominal pain, blood in stool and constipation. Skin: Wound right inguinal region Objective BP 118/76 Pulse 93 Ht 1.702 m (5' 7) Wt 113 kg (250 lb 1.6 oz) SpO2 95% BMI 39.17 kg/m Physical Exam Vitals and nursing note reviewed. Constitutional: Appearance: Normal appearance. HENT: Head: Normocephalic. Cardiovascular: Rate and Rhythm: Normal rate and regular rhythm. Heart sounds: Normal heart sounds. Pulmonary: Effort: Pulmonary effort is normal. Breath sounds: Normal breath sounds. Musculoskeletal: Cervical back: Normal range of motion. Right lower le+ Pitting Edema present. Left lower le+ Pitting Edema present. Skin: General: Skin is warm and dry. Neurological: General: No focal deficit present. Mental Status: She is alert and oriented to person, place, and time. Psychiatric: Mood and Affect: Mood normal. Thought Content: Thought content normal. Assessment/Plan Problem List Items Addressed This Visit ICD-10-CM Anxiety F41.9 Relevant Medications LORazepam (Ativan) 1 mg tablet Other Relevant Orders Follow Up In Primary Care - Established Hyperlipemia E78.5 Migraine with aura and without status migrainosus, not intractable G43.109 Relevant Medications SUMAtriptan (Imitrex) 50 mg tablet Prediabetes R73.03 Pulmonary hypertension (CMS/HCC) I27.20 Relevant Orders Referral to Cardiology Wheezing R06.2 Relevant Medications albuterol 90 mcg/actuation inhaler Encounter for immunization Z23 Relevant Orders Pneumococcal conjugate vaccine, 20-valent (PREVNAR 20) (Completed) Hearing loss due to cerumen impaction, bilateral - Primary H61.23 Other Visit Diagnoses Codes Skin ulcer of abdomen with fat layer exposed ([facility]) L98.492 Wound healing nicely follows with plastics Home health care 3 times a week for dressing changes documented in this encounter [facility] Work Phone: 04-05-2023 Instructions GUSTAVO Vaughan - 04/05/2023 1:20 PM EST Referral to cardiology for PH You received your Prevnar 20 vaccination today; recommend RSV vaccine Imitrex refilled Continue to work with your patient safety sitter to get EGD and colonoscopy completed (Dr. Rocio Pulido) in addition try to complete your in lab sleep study when able documented in this encounter [facility] Work Phone: 04-04-2023 Miscellaneous Notes SITUATION: Assisted routine visit completed today. only patient also present during today's visit. patient reports the following: Allergies--reviewed Medications--reviewed current medications Falls--None DME-Reviewed BACKGROUND: Reason for Home Care: R groin wound care, h/o COVID, home O2 ASSESSMENT: SN greeted at door by patient yelling for SN to enter home upon knocking Patient appears in no acute distress. Patient/CG concerns verbalized today: none voiced Vitals (see flow sheet for details): stable SN findings today: Pt pleasant and cooperative for today's visit. Denies pain this visit or medication changes. R groin wound care provided per orders, pt tolerated well. Pt denies issues/concerns this visit. See intervention summary for education details. Patient demonstrated a need for further skilled SN services for chronic disease management & education, medication education, wound/skin care and safety. Current Discharge plan: self-care RECOMMENDATION: Next visit to focus on (be specific): wound care to R groin, c/p check documented in this encounter [facility] 04-02-2023 Miscellaneous Notes SITUATION: Assisted routine visit completed today. only patient present during today's visit. patient reports the following: Allergies--reviewed Medications--reviewed current medications Falls--None BACKGROUND: Reason for Home Care: wound care ASSESSMENT: SN greeted at door by no one. Upon entrance patient found in chair Patient appears in no acute distress. Patient/CG concerns verbalized today: no special concerns Vitals (see flow sheet for details): stable SN findings today: Pt ambulated to bedroom for care. R groin wound is 100% granulation tissue. A dark area is noted and pt reports that [employer]SEM[employer]PER treated with silver nitrate. This was partially cleansed with vashe soak. Periwound skin is in good condition. Pt unable to perform wound care due to location. SN to continue 3 x week. See Intervention summary for education details. Patient demonstrated a need for further skilled SN services for wound/skin care. Current Discharge plan: self-care RECOMMENDATION: Next visit to focus on (be specific): wound care and assessment documented in this encounter [facility] 04-02-2023 Miscellaneous Notes SN contacted [facility] for bridge order for dressing supplies, then [facility] for the regular order for dressing supplies: 04/02/23 TC Mireya-Bridge order (2) 4x4 Ca Alginate Ag (4) 4x4 [place] SAP 04/02/23 TC to [facility], spoke with Lily (2) 4x4 Ca Alginate AG (12) 4x4 Foam border dressings, (no [place] SAP dressings at [facility]) documented in this encounter [facility] 03-30-2023 Note HNO ID: [id number] Author: Elroy Calvo APRN.CIRCULAR [employer]USER Service: ? Author Type: Nurse Practitioner Type: Progress Notes Filed: 03/30/2023 1:31 PM Note Text: WOUND CENTER PROGRESS NOTE PATIENT NAME: Carolyn Parnell DATE OF FOLLOW UP: 03/30/2023 REASON FOR FOLLOW UP: right groin wound HISTORY OF PRESENT ILLNESS: Carolyn Parnell is a 57 year old y/o female w/ hx HTN, HLD, anxiety, obesity who presents for wound assessment and treatment evaluation of right groin wound. Pt started having lower pelvic/right groin pain Sept 2022 (01/16/2023). She went to the ED for evaluation and was subsequently admitted (01/17/2023-01/26/2023) for right groin soft tissue infection. She became septic while hospitalized requiring intubation and mechanical ventilation. CT abdomen/pelvis showed gas within the soft tissues of the right side of mons pubis extending into the right groin; gas forming infection suspected. She was evaluated by infectious disease and was treated with IV antibiotics throughout the hospital stay. She underwent surgical debridement on 01/18/2023 and another bedside debridement on 01/25/2023. Tissue culture grew rare Staph simulans and few Actinomyces species. Her hospitalization was also complicated by episodes of shortness of breath, requiring O2 and IV Lasix. She was discharged to [facility] on 01/26/2023. She was to be evaluated for possible wound vac placement, but the wound vac was not started. She was discharged home with [facility] on 02/09/2023. Pt lives alone and is unable to take care of the wound herself d/t the location of the wound. She is unable to visualize the wound d/t wound location in groin under pannus to appropriately dress the wound. She was smoking up until her hospitalization and has not smoked since. She has assistance of [facility] for wound care twice a week [facility] RN has not applied the wound vac to the wound since 03/24/2023 d/t wound noted to be granulated to surface and non adherence of vac dressing. The alternate dressing (silver alginate, foam dressing) is being done. Location: right groin Onset: 01/16/2023 Aggravating factors: Infection and obesity Wound etiology: infection Associated pain with wound: No Relieving factors for wound pain: n/a Treatments: Current: silver alginate Past: wound vac, silver alginate, Dakin's moistened gauze, saline moistened gauze No past medical history on file. No past surgical history on file. ALLERGIES ALLERGIES Allergen Reactions Morphine Hives Naproxen Hives CURRENT OUTPATIENT MEDICATIONS OXYGEN, HOME THERAPY, 2 L/min by Nasal Cannula route continuous. Dexlansoprazole 60 mg CpDM Take 60 mg by mouth once daily. furosemide (LASIX) 20 mg tablet Take 1 tablet by mouth two times a day. hydroCHLOROthiazide 12.5 mg tablet Take 1 tablet by mouth once daily. lisinopril (ZESTRIL) 10 mg tablet Take 1 tablet by mouth once daily. miconazole 2 % powder Apply 1 application to affected area two times a day. SUMAtriptan (IMITREX) 50 mg tablet Take 1 tablet (50 mg) by mouth as needed for migraine headache (see administration instructions). May repeat dose after 2 hours if needed. Maximum daily dose is 200 mg per day. zinc oxide 20 % ointment Apply to affected area as needed. (Patient taking differently: Apply 1 application to affected area two times a day as needed for dry skin.) sodium hypochlorite (DAKIN'S QUARTER STRENGTH) 0.125 % soln Irrigate 5 mL as instructed once daily. acetaminophen (TYLENOL) 500 mg tablet Take 2 tablets by mouth every 8 hours as needed for pain or fever (specify). albuterol HFA (VENTOLIN HFA) 90 mcg/actuation inhaler Inhale 2 Puffs as instructed every 4 hours as needed for wheezing/shortness of breath. gabapentin (NEURONTIN) 300 mg capsule Take 300 mg by mouth three times a day. Do not start before February 11, 2023. rosuvastatin (CRESTOR) 10 mg tablet Take 10 mg by mouth every other day. LORazepam (ATIVAN) 1 mg tablet Take 1 mg by mouth at bedtime as needed for anxiety. Do not start before February 11, 2023. famotidine (PEPCID) 20 mg tablet Take 1 tablet by mouth two times a day as needed (heartburn). (Patient not taking: Reported on 02/19/2023) [DISCONTINUED] escitalopram oxalate (LEXAPRO) 10 mg tablet Take 10 mg by mouth once daily. (Patient not taking: Reported on 02/19/2023) No family history on file. Social History Tobacco Use Smoking status: Former Packs/day: 1.00 Years: 30.00 Additional pack years: 0.00 Total pack years: 30.00 Types: Cigarettes Start date: 1992 Quit date: 01/19/2023 Years since quittin.1 Smokeless tobacco: Never Tobacco comments: Patient quite smoking 01/19/23 when she was admitted to the hospital Substance Use Topics Alcohol use: Not Currently Drug use: Never REVIEW OF SYSTEMS: GENERAL: No weight loss, malaise or fevers RESPIRATORY: Negative for cough, hemoptysis, wheezing, COPD, dyspnea or shortness of (more content not included)... [facility] 03-26-2023 Miscellaneous Notes SITUATION: Assisted routine visit completed today. only patient present during today's visit. patient reports the following: Allergies--reviewed Medications--reviewed current medications Falls--None BACKGROUND: Reason for Home Care: wound care ASSESSMENT: SN greeted at door by caregiver. Upon entrance patient found in chair Patient appears in no acute distress. Patient/CG concerns verbalized today: pt reports that she has been having difficulty keeping the dressing on the wound. Vitals (see flow sheet for details): stable SN findings today: Pt has wound coverd wtih ABD pad, she is not able to see the wound even with use of a mirror. SN notes that the wound has granulated significantly since this SN last vs and is 0.1 cm deep, Sn provided silver alginate and a foam border dressing as noted on message from LARISA Null Plan to change 3 x week as pt is not able to do the wound care and this is appropriate for the wound at this time. Pt has some mild redness to abdominal folds but not moist. SN instructed pt on continuing to use the antifungal powder. Pt reports that her COVID symptoms have resolved. SN instructe pt that isolation precautions will be removed after today. Overall, pt reports that she is feeling well. See intervention summary for education details. Patient demonstrated a need for further skilled SN services for wound/skin care. Current Discharge plan: self-care RECOMMENDATION: Next visit to focus on (be specific): wound care. documented in this encounter [facility] 03-24-2023 Miscellaneous Notes Patient seen today for wound vac change. Patient states the wound vac came off again last night. Nurse assessed wound- wound is to surface. Nurse keeping wound vac off due to wound stage of healing and because wound vac continues to fall off daily. Patient is agreeable to this also. Patient states she has a wound appointment Sunday at wound center. Thank you. documented in this encounter [facility] 03-23-2023 Miscellaneous Notes SN vs moved to 03/24 due to prn vs on 03/22. documented in this encounter [facility] 03-22-2023 Miscellaneous Notes SITUATION: Assisted PRN visit completed today. only patient also present during today's visit. patient reports the following: Allergies--reviewed Medications--reviewed current medications Falls--None BACKGROUND: Reason for Home Care: wound care Reason for PRN Visit: wound vac dressing fell off ASSESSMENT: SN greeted at door by patient no DME and demonstrates stable gait. Patient appears in no acute distress. Patient/CG concerns verbalized today: pt states wound vac dressing fell off last night Vitals (see flow sheet for details): stable SN findings today: pt pleasant. pt states wound vac dressing fell off last night. pt applied wet to dry dressing, as best I can, it is hard to reach and I can't see the wound. SN applied wound vac, no s/sx of infection noted. 1 piece of black foam used, adaptic used in wound bed. SN reviewed falls prevention and oxygen safety with pt. pt reports feeling better, my sore throat is almost gone, I never had a cough, and my nasal congestion is much better. pt has adequate supplies in home. See intervention summary for education details and skills performed. RECOMMENDATION: Next visit to focus on (be specific): wound vac dressing change documented in this encounter [facility] 03-21-2023 Miscellaneous Notes SITUATION: Assisted routine visit completed today. only patient present during today's visit. patient reports the following: Allergies--reviewed Medications--reviewed current medications Falls--None BACKGROUND: Reason for Home Care: wound care ASSESSMENT: SN greeted at door by no one. Upon entrance patient found in chair Patient appears in no acute distress. Patient/CG concerns verbalized today: no special concerns. Pt reports that she is feeling much better, not as congested ans starting to get her sense of smell back. Vitals (see flow sheet for details): stable SN findings today: Pt ambulated to bedroom for care. R groin wound is 100% red granulation tissue. There is some periwound skin redness to near abdominal fold, trac pad draped to a different area and skin treated with antifungal powder. Pt afebrile, occasional cough noted but not productive. Pt reports that she is feeling better. She continues to self isolate, is taking fluids well and states that ppetite is improving some. See intervention summary for education details. Patient demonstrated a need for further skilled SN services for wound/skin care. Current Discharge plan: self-care RECOMMENDATION: Next visit to focus on (be specific): wound care documented in this encounter [facility] 03-16-2023 Miscellaneous Notes SITUATION: Assisted routine visit completed today. only patient present during today's visit. patient reports the following: Allergies--reviewed Medications--reviewed current medications Falls--None BACKGROUND: Reason for Home Care: wound care ASSESSMENT: SN greeted at door by no one. Upon entrance patient found in chair Patient appears in no acute distress. Patient/CG concerns verbalized today: pt verbalizes that she has a heal cold, feels sinus congestion. Vitals (see flow sheet for details): stable SN findings today: Pt sitting in recliner. See above report. Pt reports that no increase in shortness of breath, feels that it is sinus related. She reports that she has been coughing up alittle mucus but mostly blowing her nose more than anything. Pt does have a low grade fever. Instructed pt to take tylenol as prescribed, plenty of rest and fluids. Most likely viral and will run it's course-pt reprots that she does not feel bad. Instructed pt that if fever is >101, she develops shortess of breath or severed chest congestion, feels worse; seek treatment in ED. R groin wound is fully granulating. Wound vac dressing changed without issues. Pt does have some redness distal to wound so trac pad bridged off to the side today. See intervention summary for education details. Patient demonstrated a need for further skilled SN services for wound/skin care. Current Discharge plan: self-care RECOMMENDATION: Next visit to focus on (be specific): wound vac dressing change. documented in this encounter [facility] 03-14-2023 Miscellaneous Notes SITUATION: Assisted routine visit completed today. only patient present during today's visit. patient reports the following: Allergies--reviewed Medications--reviewed current medications Falls--None BACKGROUND: Reason for Home Care: wound care ASSESSMENT: SN greeted at door by no one. Upon entrance patient found in chair Patient appears in no acute distress. Patient/CG concerns verbalized today: no special concerns Vitals (see flow sheet for details): stable SN findings today: pt sitting in recliner. She ambulated to bedroom for care. R groin wound is 100% red granulation tissue. Periwound skin in good cndition. No redness noted to skin folds today. Pt reports some pain with dressing removal but otherwise pain free after care completed. Pt continues to wear the oxygen and denies any changes in breathing patterns. See intervention summary for education details. Patient demonstrated a need for further skilled SN services for wound/skin care and safety. Current Discharge plan: self-care RECOMMENDATION: Next visit to focus on (be specific): wound vac dressing change. documented in this encounter [facility] 03-12-2023 Miscellaneous Notes SITUATION: Assisted routine visit completed today. only patient also present during today's visit. patient reports the following: Allergies--reviewed Medications--reviewed current medications Falls--None DME-Reviewed and added to chart BACKGROUND: Reason for Home Care: wound care ASSESSMENT: pt called for SN to enter, pt sitting in chair. Patient appears in no acute distress. Patient/CG concerns verbalized today: none Vitals (see flow sheet for details): stable SN findings today: pt pleasant. pt denies c/o pain. pt reports gaining strength, states, 'I don't need to use the walker to get around anymore. SN taught pt falls prevention safety. pt denies issues with wound vac. pt is knowledgeable about actions to take for vac failure. SN taught pt s/sx of infection to report. SN performed wound vac dressing change, no s/sx of infection noted. seal obtained at 150mmHg. pt has adequate wound care supplies in home. See intervention summary for education details. Patient demonstrated a need for further skilled SN services for wound/skin care. Current Discharge plan: recertification RECOMMENDATION: Next visit to focus on (be specific): wound vac dressing change documented in this encounter [facility] 03-09-2023 Miscellaneous Notes no new updated wound care order documented in this encounter [facility] 03-09-2023 Note HNO ID: [id number] Author: Elroy Calvo APRN.CIRCULAR [employer] FUSER Service: ? Author Type: Nurse Practitioner Type: Progress Notes Filed: 03/09/2023 2:06 PM Note Text: WOUND CENTER PROGRESS NOTE PATIENT NAME: Carolyn Parnell DATE OF FOLLOW UP: 03/09/2023 REASON FOR FOLLOW UP: right groin wound HISTORY OF PRESENT ILLNESS: Carolyn Parnell is a 57 year old y/o female w/ hx HTN, HLD, anxiety, obesity who presents for wound assessment and treatment evaluation of right groin wound. Pt started having lower pelvic/right groin pain Dec 2022 (01/16/2023). She went to the ED for evaluation and was subsequently admitted (01/17/2023-01/26/2023) for right groin soft tissue infection. She became septic while hospitalized requiring intubation and mechanical ventilation. CT abdomen/pelvis showed gas within the soft tissues of the right side of mons pubis extending into the right groin; gas forming infection suspected. She was evaluated by infectious disease and was treated with IV antibiotics throughout the hospital stay. She underwent surgical debridement on 01/18/2023 and another bedside debridement on 01/25/2023. Tissue culture grew rare Staph simulans and few Actinomyces species. Her hospitalization was also complicated by episodes of shortness of breath, requiring O2 and IV Lasix. She was discharged to [facility] on 01/26/2023. She was to be evaluated for possible wound vac placement, but the wound vac was not started. She was discharged home with [facility] on 02/09/2023. Pt lives alone and is unable to take care of the wound herself d/t the location of the wound. She is unable to visualize the wound d/t wound location in groin under pannus to appropriately dress the wound. She was smoking up until her hospitalization and has not smoked since. She has assistance of [facility] for wound care twice a week. Location: right groin Onset: 01/16/2023 Aggravating factors: Infection and obesity Wound etiology: infection Associated pain with wound: No Relieving factors for wound pain: n/a Treatments: Current: wound vac Past: silver alginate, Dakin's moistened gauze, saline moistened gauze No past medical history on file. No past surgical history on file. ALLERGIES ALLERGIES Allergen Reactions Morphine Hives Naproxen Hives CURRENT OUTPATIENT MEDICATIONS OXYGEN, HOME THERAPY, 2 L/min by Nasal Cannula route continuous. Dexlansoprazole 60 mg CpDM Take 60 mg by mouth once daily. furosemide (LASIX) 20 mg tablet Take 1 tablet by mouth two times a day. hydroCHLOROthiazide 12.5 mg tablet Take 1 tablet by mouth once daily. lisinopril (ZESTRIL) 10 mg tablet Take 1 tablet by mouth once daily. miconazole 2 % powder Apply 1 application to affected area two times a day. SUMAtriptan (IMITREX) 50 mg tablet Take 1 tablet (50 mg) by mouth as needed for migraine headache (see administration instructions). May repeat dose after 2 hours if needed. Maximum daily dose is 200 mg per day. zinc oxide 20 % ointment Apply to affected area as needed. (Patient taking differently: Apply 1 application to affected area two times a day as needed for dry skin.) sodium hypochlorite (DAKIN'S QUARTER STRENGTH) 0.125 % soln Irrigate 5 mL as instructed once daily. acetaminophen (TYLENOL) 500 mg tablet Take 2 tablets by mouth every 8 hours as needed for pain or fever (specify). albuterol HFA (VENTOLIN HFA) 90 mcg/actuation inhaler Inhale 2 Puffs as instructed every 4 hours as needed for wheezing/shortness of breath. gabapentin (NEURONTIN) 300 mg capsule Take 300 mg by mouth three times a day. Do not start before February 11, 2023. rosuvastatin (CRESTOR) 10 mg tablet Take 10 mg by mouth every other day. LORazepam (ATIVAN) 1 mg tablet Take 1 mg by mouth at bedtime as needed for anxiety. Do not start before February 11, 2023. famotidine (PEPCID) 20 mg tablet Take 1 tablet by mouth two times a day as needed (heartburn). (Patient not taking: Reported on 02/19/2023) [DISCONTINUED] escitalopram oxalate (LEXAPRO) 10 mg tablet Take 10 mg by mouth once daily. (Patient not taking: Reported on 02/19/2023) No family history on file. Social History Tobacco Use Smoking status: Former Packs/day: 1.00 Years: 30.00 Additional pack years: 0.00 Total pack years: 30.00 Types: Cigarettes Start date: 1992 Quit date: 01/19/2023 Years since quittin.1 Smokeless tobacco: Never Tobacco comments: Patient quite smoking 01/19/23 when she was admitted to the hospital Substance Use Topics Alcohol use: Not Currently Drug use: Never REVIEW OF SYSTEMS: GENERAL: No weight loss, malaise or fevers RESPIRATORY: Negative for cough, hemoptysis, wheezing, COPD, dyspnea or shortness of breath CARDIOVASCULAR: Negative for chest pain, leg swelling, hypertension, CHF or palpitations GI: No nausea, vomiting, or diarrhea MUSCULOSKELETAL: Negative for joint pain or swelling, back pain or muscle pain SKIN: Positi (more content not included)... [facility] 03-09-2023 History of Present illness Narrative Images from the original note were not included. WOUND CENTER PROGRESS NOTE PATIENT NAME: Carolyn Parnell DATE OF FOLLOW UP: 03/09/2023 REASON FOR FOLLOW UP: right groin wound HISTORY OF PRESENT ILLNESS: Carolyn Parnell is a 57 year old y/o female w/ hx HTN, HLD, anxiety, obesity who presents for wound assessment and treatment evaluation of right groin wound. Pt started having lower pelvic/right groin pain Sept 2022 (01/16/2023). She went to the ED for evaluation and was subsequently admitted (01/17/2023-01/26/2023) for right groin soft tissue infection. She became septic while hospitalized requiring intubation and mechanical ventilation. CT abdomen/pelvis showed gas within the soft tissues of the right side of mons pubis extending into the right groin; gas forming infection suspected. She was evaluated by infectious disease and was treated with IV antibiotics throughout the hospital stay. She underwent surgical debridement on 01/18/2023 and another bedside debridement on 01/25/2023. Tissue culture grew rare Staph simulans and few Actinomyces species. Her hospitalization was also complicated by episodes of shortness of breath, requiring O2 and IV Lasix. She was discharged to [facility] on 01/26/2023. She was to be evaluated for possible wound vac placement, but the wound vac was not started. She was discharged home with [facility] on 02/09/2023. Pt lives alone and is unable to take care of the wound herself d/t the location of the wound. She is unable to visualize the wound d/t wound location in groin under pannus to appropriately dress the wound. She was smoking up until her hospitalization and has not smoked since. She has assistance of [facility] for wound care twice a week. Location: right groin Onset: 01/16/2023 Aggravating factors: Infection and obesity Wound etiology: infection Associated pain with wound: No Relieving factors for wound pain: n/a Treatments: Current: wound vac Past: silver alginate, Dakin's moistened gauze, saline moistened gauze No past medical history on file. No past surgical history on file. ALLERGIES ALLERGIES Allergen Reactions Morphine Hives Naproxen Hives CURRENT OUTPATIENT MEDICATIONS OXYGEN, HOME THERAPY, 2 L/min by Nasal Cannula route continuous. Dexlansoprazole 60 mg CpDM Take 60 mg by mouth once daily. furosemide (LASIX) 20 mg tablet Take 1 tablet by mouth two times a day. hydroCHLOROthiazide 12.5 mg tablet Take 1 tablet by mouth once daily. lisinopril (ZESTRIL) 10 mg tablet Take 1 tablet by mouth once daily. miconazole 2 % powder Apply 1 application to affected area two times a day. SUMAtriptan (IMITREX) 50 mg tablet Take 1 tablet (50 mg) by mouth as needed for migraine headache (see administration instructions). May repeat dose after 2 hours if needed. Maximum daily dose is 200 mg per day. zinc oxide 20 % ointment Apply to affected area as needed. (Patient taking differently: Apply 1 application to affected area two times a day as needed for dry skin.) sodium hypochlorite (DAKIN'S QUARTER STRENGTH) 0.125 % soln Irrigate 5 mL as instructed once daily. acetaminophen (TYLENOL) 500 mg tablet Take 2 tablets by mouth every 8 hours as needed for pain or fever (specify). albuterol HFA (VENTOLIN HFA) 90 mcg/actuation inhaler Inhale 2 Puffs as instructed every 4 hours as needed for wheezing/shortness of breath. gabapentin (NEURONTIN) 300 mg capsule Take 300 mg by mouth three times a day. Do not start before February 11, 2023. rosuvastatin (CRESTOR) 10 mg tablet Take 10 mg by mouth every other day. LORazepam (ATIVAN) 1 mg tablet Take 1 mg by mouth at bedtime as needed for anxiety. Do not start before February 11, 2023. famotidine (PEPCID) 20 mg tablet Take 1 tablet by mouth two times a day as needed (heartburn). (Patient not taking: Reported on 02/19/2023) [DISCONTINUED] escitalopram oxalate (LEXAPRO) 10 mg tablet Take 10 mg by mouth once daily. (Patient not taking: Reported on 02/19/2023) No family history on file. Social History Tobacco Use Smoking status: Former Packs/day: 1.00 Years: 30.00 Additional pack years: 0.00 Total pack years: 30.00 Types: Cigarettes Start date: 1992 Quit date: 01/19/2023 Years since quittin.1 Smokeless tobacco: Never Tobacco comments: Patient quite smoking 01/19/23 when she was admitted to the hospital Substance Use Topics Alcohol use: Not Currently Drug use: Never REVIEW OF SYSTEMS: GENERAL: No weight loss, malaise or fevers RESPIRATORY: Negative for cough, hemoptysis, wheezing, COPD, dyspnea or shortness of breath CARDIOVASCULAR: Negative for chest pain, leg swelling, hypertension, CHF or palpitations GI: No nausea, vomiting, or diarrhea MUSCULOSKELETAL: Negative for joint pain or swelling, back pain or muscle pain SKIN: Positive for wound, right groin HEMATOLOGY/LYMPHOLOGY: Negative for prolonged bleeding, bruising easily or swollen nodes ENDOCRINE: Negative for cold or heat intolerance, polyuria, polydipsia and goiter NEURO: No history of headaches, syncope, paralysis, seizures or tremors Nutrition Diet: regular Supplement: Ensure Appetite: good PHYSICAL EXAM BP 95/66 / Pulse 88 / Resp 18 / Temp 97.6F / SpO2 91% General appearance: Well appearing, alert, in no acute distress, well-hydrated, well nourished. and Obese Skin: Skin color, texture, turgor normal, no suspicious rashes or lesions. Positives: wound, right groin (see wound assessment). No erythema of abdominal fold. Head: Normocephalic, no masses, lesions, tenderness or abnormalities Eyes: Anicteric sclera. Pupils are equally round and reactive to light. Extraocular movements are intact. Lungs: normal respiratory rate and rhythm Abdomen: Abdomen soft, non-tender, obese w/ large pannus. Extremities: Edema: none Musculoskeletal: No joint swelling, deformity, or tenderness Neuro: Oriented X 3. Ambulatory WOUND ASSESSMENT Wound 1: Location: right groin Type: abscess Stage: NA Exposed structure: none Progress: improved Wound measurements (cm): 5.2 x 1.2 x 2.5 (depth measured @ 1100) Full thickness- Yes Tunneling/undermining: undermining present: 1.0cm @1100, 1.0cm at @1200, 1.0cm @1500, 0.6cm @1600 Wound tissue color: 20% slough, 80% red Periwound tissue: dry and intact, very mild irritation below wound on right proximal inner thigh Drainage:serosanguinous, medium amount Drainage odor: none PROCEDURE: Excisional Sharp Debridement- right groin A time out was performed immediately prior to procedure start with the DESKTOP SUPPORT CONSULTANT and team , correctly identifying the patient name, date of , procedure, anatomy, patient position, safety precautions, and procedure-specific equipment needs. The procedure was explained to the patient including the risks, benefits and alternatives. The risks, including but not limited to infection and bleeding, were reviewed by the performing provider and the patient agrees to undergo the procedure. Written consent was obtained . With appropriate consent the wound was sharply debrided down to and including subcutaneous tissue Total tissue debrided Less than 20 sq.cm Using a sterile curette the wound was debrided. Patient required pre-medication: Lidocaine 2% gel Patient expressed pain during procedure: no Scale: 0 EBL: minimal Wound measurement prior to debridement: 5.2 x 1.2 x 2.5 Wound measurement post debridement: 5.0 x 1.0 x 2.0 Type of tissue debrided: ( slough, necrotic, devitalized) Tissue at wound bed after debridment: red Dressing applied after debridement: yes Patient tolerated procedure well without apparent complications. DATA PHOTOGRAPHY: yes A photo was taken of the patient's wound(s). Photos can be found under the [facility] images tab on [facility]. The purpose of the photo(s) is to optimize the patient's medical care and allow a visual aid to their wound evaluation and progress. The photo(s) are not intended for publication, education, or research. If the use of the photo is desired in any additional way, other than for the above outlined purposes, then an additional consent for the intended use will need to be obtained by the requesting provider. Photo was taken of: right groin Verbal consent was obtained: yes WBC Date Value 01/29/2023 8.00 k/uL 01/28/2023 12.35 k/uL 01/27/2023 10.86 k/uL 08/19/2013 8.3 thou/cmm 08/14/2008 6.73 k/uL 08/14/2008 7.03 k/uL Hemoglobin (g/dL) Date Value 01/29/2023 10.6 01/28/2023 11.3 01/27/2023 11.0 08/14/2008 11.6 08/14/2008 12.3 08/13/2008 12.6 HGB (g/dL) Date Value 08/19/2013 13.7 PT INR (no units) Date Value 08/13/2008 1.0 Sodium Date Value 01/29/2023 137 mmol/L 01/28/2023 137 mmol/L 01/26/2023 140 mmol/L 08/19/2013 136 mEq/L 08/14/2008 138 mmol/L 08/13/2008 138 mmol/L Potassium Date Value 01/29/2023 3.8 mmol/L 01/28/2023 4.1 mmol/L 01/26/2023 3.8 mmol/L 08/19/2013 3.4 mEq/L 08/14/2008 4.3 mmol/L 08/13/2008 4.2 mmol/L CO2 Date Value 01/29/2023 39 mmol/L 01/28/2023 40 mmol/L 01/26/2023 43 mmol/L 08/19/2013 26 mEq/L 08/14/2008 26 mmol/L 08/13/2008 28 mmol/L BUN (mg/dL) Date Value 01/29/2023 9 01/28/2023 11 01/26/2023 18 08/19/2013 21 08/14/2008 7 08/13/2008 9 AST (U/L) Date Value 08/19/2013 19 08/13/2008 21 ALT (U/L) Date Value 08/19/2013 28 08/13/2008 17 Bilirubin, Total (mg/dL) Date Value 08/19/2013 0.4 08/13/2008 0.4 Alkaline Phosphatase (U/L) Date Value 08/19/2013 82 08/13/2008 60 Lactate (mmol/L) Date Value 01/27/2023 0.9 01/19/2023 1.3 01/18/2023 1.4 01/18/2023 1.6 Vancomycin (ug/mL) Date Value 01/19/2023 10.4 MICROBIOLOGY: Reviewed IMAGING: Reviewed IMPRESSION/RECOMMENDATIONS The patient's age and other co morbidities are likely to impact wound and skin integrity Additional impediments to healing Diabetic: No Anticoagulation: No Antibiotics: No Steroids: No (L98.492) Skin ulcer of abdomen with fat layer exposed (HCC) (M79.89) 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 No s/s acute infection. Plan: continue wound vac - Irrigate wound and periwound skin with normal saline and gauze . Vashe soak to wound. Dusting of Miconazole powder to irritated area on thigh, sealed in with skin prep and mastisol. Apply wound vac with black foam to base and tucked into undermining. Goldie seal to distal periwound groin fold. Bridge away from wound to right anterior medial thigh. 150mmHg continuous pressure, high intensity. Change 3x/week (--) and prn. (See nursing note for alternate dressing instructions) - Cleanse abdominal fold with soap and water daily. Pat dry. Apply Miconazole 2% powder abdominal fold area twice a day for prevention and to help keep area dry. - Continue aggressive nutritional support to assist wound healing - Pt will require 3 [facility] nurse visits the week of for wound vac changes - Follow up in wound center in 2 weeks I discussed the plan in detail with the patient and the patient verbalizes understanding and is in agreement. My previous progress note dated 03/02/2023 was copied forward, updated where appropriate, and reflective of current medical decision making today, 03/09/2023. Elroy Calvo APRN, MELONY, CWS Certified Clinical Studies Specialist March 09, 2023 documented in this encounter [facility] 03-09-[address] Arrington RN - 03/09/2023 11:15 AM EST WOUND CARE INSTRUCTIONS- Carolyn Parnell Wound location: Right Groin [facility] FAX: [phone] [facility] Home Care is to do wound vac dressing changes on Mondays & Wednesdays If there are any alterations in the schedule please call the wound center for directions. Keep your Wound Vac dressing dry and intact until your next dressing change. If your Wound Vac fails, please remember that you have 2 hours to get it running. At the 2 hour bridgett please remove the entire dressing, wound packing, and all of the elle-wound dressing and begin the alternate dressing as written below. ALTERNATE DRESSING IF WOUND VAC MUST BE REMOVED: 1. Wash your hands with soap and water before and after wound care. 2. Gather all supplies needed. 3. Apply Vashe moistened gauze to the wound and allow to soak for 5-10 minutes, then remove and wipe the wound clean. 4. Sprinkle Miconazole powder to groin skin folds twice daily 5. Apply Calcium Alginate Ag (Silver Alginate) - felt like material to wound bed 6. Cover with [place] SAP silicone bordered foam dressing 7. Change your dressing every other day and as needed to maintain a clean, dry, intact dressing Wound vac settings 150 mmhg negative pressure High intensity Continuous suction Change dressings 1. Wash your hands with soap and water before and after wound care. 2. Gather all supplies needed. 3. Shower on the days that your home care nurse is visiting; keep the wound covered with your dressing while showering, then remove the dressing after your shower and cover the wound with clean gauze until your nurse arrives 4. Apply Vashe soak: apply Vashe moistened gauze to the wound and allow to soak for 5-10 minutes, then remove and wipe the wound clean 5.Sprinkle the miconazole (anti-fungal powder) to groin skin folds 6. Skin prep and mastisol to the elle-wound 7. Apply Goldie's seal to distal aspect of wound 8. Window wound with wound vac drape 9. Lightly pack wound with [place] black foam 10. Secure with clear vac drape and attach suction disc tracked to right upper anterior thigh 11. Pad between vac tubing and patients skin To give your wound the best chance to heal: - Eat three balanced meals daily focusing on the protein - Control swelling by elevating the extremity above your heart - Complete your wound care instructions - Vitamin C 500 mg twice daily - Multiple Vitamin Daily - Drink a protein shake daily Report any of the following changes [phone] or go to the Emergency Department: Fever or chills Increased drainage Green or yellow drainage Foul odor Increased pain Hardness around the wound Redness, warmth or swelling of the surrounding tissue Color change to the wound Plan: - Follow-up in the wound center with Elroy Calvo CNP 03/23/23 all at 10:45 am - The week of Thanksgiving the patient will require 3 visits per home care - Continue aggressive nutritional support for optimal wound healing Elroy Calvo CNP/lt/ documented in this encounter [facility] 03-09-2023 Nurse Note Nursing Documentation Pertinent Medical History: HTN, elevated cholesterol, anxiety, obesity, colon resection 2009 due to diverticulitis and perforation Wound Etiology according to patient: pain in right groin with shivering, went to the ER 01/17/23 and admitted, became septic; S/P I&D Right groin 01/18/23 Respiratory failure, intubated, pulmonary hypertension Patient arrived via: ambulatory Home Care Company/Nursing Facility: [facility] FAX: [phone] Consent captured for debridement per Elroy Calvo CNP and yoseph until July 2023 Special Instructions: bed Anticoagulant Therapy: none Living Situation: mobile home Who lives with patient: self Who will be performing wound care: [facility] Available Support System: sister & neighbors In-Home Assist Devices: walker 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, 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 Provider seeing patient: Elroy Calvo CNP ___ WOUND ASSESSMENT: Refer to Provider's Wound Assessment Note VASCULAR ASSESSMENT BY PROVIDER: N/A CHF History: denies (hx: pulmonary hypertension) Smoking: quit 01/19/23 Education: EDEMA: N/A wound located on right groin Right foot: Right calf: Left foot : Left Calf: Other: MEASUREMENTS: in CM N/A wound located on right groin Right Calf: Right Ankle: Left Calf: Left Ankle: Length: Smoking: Denies WOUND PHOTOGRAPHY: YES x 1 DEBRIDEMENT PROCEDURE BY PROVIDER: Anesthetic Used: lido gel 2% applied by Aurora Barrios RN Wound # 1 Other procedure: N/A Specimen collected: N/A WOUND TREATMENT PER MD ORDER: Wounds cleansed by mechanical debridement to allow provider to visualize wound base WOUND # 1 LOCATION: Right groin (01/19/23) L: 5.2 cm x W: 1.2 cm x D: 2.5 cm (depth measured at the 11:00 position) Debridement by Provider: SQ Post Debridement Measurements: L: 5.0 cm x W: 1.0 cm x D: 2 cm (not stretched) Undermining 11:00- 1.0 cm 12:00- 1.0 cm 15:00- 1.0 cm 16:00- 0.6 cm Tunnel closed (03/09/23) Cleansed with: Vashe soak Applied to elle-wound skin: Miconazole powder, skin prep, mastisol, eaken seal placed at the distal end of the wound. The elle-wound was covered with duoderm, Right Medial Thigh/Groin: red/dried/irritated from drape. Dusting of miconazole powder covered with calcium alginate followed with drape Applied to wound bed:+ Black foam Covered and secured with: Vac drape, suction disc placed on right anterior medial thigh Other: Wound Vac Settings: Continuous pressure at 150 mmHg High intensity Change dressings M-W-F NPWT Tracking : Wound location: Right groin Vac Start date: 02/23/2023 Vac Hold date: Vac Restart date: Hospitalization date: COMPRESSION: N/A SPECIAL NEEDS: Coordination of care - orders faxed to [facility] Emotional support N/A OR set-up N/A Coroner'S Juror N/A Incontinence needs N/A DISCHARGED in stable condition to: ambulatory to home Global surgical period dates if applicable: 01/19/23 - 04/18/23 Plan: Follow-up in the wound center with Elroy Calvo CNP: Sunday03/09/23 and 03/23/23 all at 10:45 am The week of the patient will require 3 visits per home care M-W- Continue aggressive nutritional support for optimal wound healing Revisit 03/09 the idea of possibly having only 2 visits by Home Care the week of EDUCATION: The patient/family was instructed how to cleanse the wound(s). Visual demonstration on how to apply the dressing with teach back method. Signs & symptoms of infection were reviewed: Increased redness, swelling, pain, green/yellow drainage, fever and/or chills would all need to be evaluated by a Physician. Patient received typed home-going wound care instructions and has expressed intent to comply. OTHER EDUCATION: Education performed regarding lymphedema/edema: Elevation of extremity above the heart for 30 minutes three times daily and as needed Exercise such as writing the ABC's with your toes in the air, walking and/or calf pumps Wearing compression as ordered by provider Diet controlling of sodium as instructed by provider Use of medication to help control edema. UNIVERSAL PROTOCOL / SAFETY CHECKLIST: N/A Current HBOT Status: Active or Complete - see screening below WOUND CENTER HYPERBARIC OXYGEN THERAPY SCREENING 1. Is the patient diabetic? (If No, skip to question 5) No 5. Has the patient been diagnosed with osteomyelitis? No 6. Has the patient had a previous skin graft or flap at the wound? No 7. Has the patient had or been offered vascular intervention/evaluation? No 8. Does the patient have a wound at an amputation site? No 9. Has the patient had radiation therapy at the site of the problem? No If Yes to ANY of questions 5-9, consult the Hyperbaric Center Ct Arrington RN documented in this encounter [facility] 03-07-2023 Miscellaneous Notes SITUATION: Assisted routine visit completed today. sister also present during today's visit. patient reports the following: Allergies--reviewed Medications--reviewed current medications Falls--None BACKGROUND: Reason for Home Care: wound care ASSESSMENT: SN greeted at door by caregiver. Upon entrance patient found in chair Patient appears in no acute distress. Patient/CG concerns verbalized today: no special concerns Vitals (see flow sheet for details): stable SN findings today: Pt sitting in recliner, she ambulated to bedroom for care. R groin wound is 100% granulation tissue. There is some irritation to outer aspect of R groin. Tried to minimize draping over any irritated skin. Seal achieved, canister changed. There is a small amount of light serosang drainage in canister. No odor to wound after cleansed. Pt going to wound center on 03/09. See intervention summary for education details. Patient demonstrated a need for further skilled SN services for wound/skin care. Current Discharge plan: self-care RECOMMENDATION: Next visit to focus on (be specific): wound vac dressing change documented in this encounter [facility] 03-05-2023 Miscellaneous Notes SITUATION: Assisted routine visit completed today. only patient also present during today's visit. patient reports the following: Allergies--reviewed Medications--reviewed current medications Falls--None DME-Reviewed and added to chart BACKGROUND: Reason for Home Care: Wound care ASSESSMENT: SN greeted at door by patient no DME and demonstrates stable gait. Patient appears in no acute distress. Patient/CG concerns verbalized today: See note below Vitals (see flow sheet for details): stable SN findings today: SN changed wound vac dressing per orders with no issues or concerns. SN provided wound vac education and reviewed care plan education. Pt. has no questions or concerns during this visit. See intervention summary for education details. Patient demonstrated a need for further skilled SN services for chronic disease management & education, medication education and wound/skin care. Current Discharge plan: family support RECOMMENDATION: Next visit to focus on (be specific): Wound care documented in this encounter [facility] 03-02-2023 Note HNO ID: [id number] Author: Elroy Calvo APRN.MELONY Service: ? Author Type: Nurse Practitioner Type: Progress Notes Filed: 03/02/2023 1:06 PM Note Text: WOUND CENTER PROGRESS NOTE PATIENT NAME: Carolyn Parnell DATE OF FOLLOW UP: 03/02/2023 REASON FOR FOLLOW UP: right groin wound HISTORY OF PRESENT ILLNESS: Carolyn Parnell is a 57 year old y/o female w/ hx HTN, HLD, anxiety, obesity who presents for wound assessment and treatment evaluation of right groin wound. Pt started having lower pelvic/right groin pain Sept 2022 (01/16/2023). She went to the ED for evaluation and was subsequently admitted (01/17/2023-01/26/2023) for right groin soft tissue infection. She became septic while hospitalized requiring intubation and mechanical ventilation. CT abdomen/pelvis showed gas within the soft tissues of the right side of mons pubis extending into the right groin; gas forming infection suspected. She was evaluated by infectious disease and was treated with IV antibiotics throughout the hospital stay. She underwent surgical debridement on 01/18/2023 and another bedside debridement on 01/25/2023. Tissue culture grew rare Staph simulans and few Actinomyces species. Her hospitalization was also complicated by episodes of shortness of breath, requiring O2 and IV Lasix. She was discharged to [facility] on 01/26/2023. She was to be evaluated for possible wound vac placement, but the wound vac was not started. She was discharged home with [facility] on 02/09/2023. Pt lives alone and is unable to take care of the wound herself d/t the location of the wound. She is unable to visualize the wound d/t wound location in groin under pannus to appropriately dress the wound. She states she was smoking up until her hospitalization and has not smoked since. She has assistance of [facility] for wound care twice a week. Pt required a [facility] nurse visit over the past weekend (02/25/2023) for a wound vac change d/t vac alarming and loose dressing. Pt states she has not had any issues with the wound vac since. The wound vac was again changed by [facility] on 02/27/2023 and 03/01/2023. Location: right groin Onset: 01/16/2023 Aggravating factors: Infection and obesity Wound etiology: infection Associated pain with wound: No Relieving factors for wound pain: n/a Treatments: Current: wound vac Past: silver alginate, Dakin's moistened gauze, saline moistened gauze No past medical history on file. No past surgical history on file. ALLERGIES ALLERGIES Allergen Reactions Morphine Hives Naproxen Hives CURRENT OUTPATIENT MEDICATIONS OXYGEN, HOME THERAPY, 2 L/min by Nasal Cannula route continuous. Dexlansoprazole 60 mg CpDM Take 60 mg by mouth once daily. famotidine (PEPCID) 20 mg tablet Take 1 tablet by mouth two times a day as needed (heartburn). (Patient not taking: Reported on 02/19/2023) furosemide (LASIX) 20 mg tablet Take 1 tablet by mouth two times a day. hydroCHLOROthiazide 12.5 mg tablet Take 1 tablet by mouth once daily. lisinopril (ZESTRIL) 10 mg tablet Take 1 tablet by mouth once daily. miconazole 2 % powder Apply 1 application to affected area two times a day. SUMAtriptan (IMITREX) 50 mg tablet Take 1 tablet (50 mg) by mouth as needed for migraine headache (see administration instructions). May repeat dose after 2 hours if needed. Maximum daily dose is 200 mg per day. zinc oxide 20 % ointment Apply to affected area as needed. (Patient taking differently: Apply 1 application to affected area as needed for dry skin.) sodium hypochlorite (DAKIN'S QUARTER STRENGTH) 0.125 % soln Irrigate 5 mL as instructed once daily. acetaminophen (TYLENOL) 500 mg tablet Take 2 tablets by mouth every 8 hours as needed for pain or fever (specify). albuterol HFA (VENTOLIN HFA) 90 mcg/actuation inhaler Inhale 2 Puffs as instructed every 4 hours as needed for wheezing/shortness of breath. gabapentin (NEURONTIN) 300 mg capsule Take 300 mg by mouth three times a day. Do not start before February 11, 2023. [DISCONTINUED] escitalopram oxalate (LEXAPRO) 10 mg tablet Take 10 mg by mouth once daily. (Patient not taking: Reported on 02/19/2023) rosuvastatin (CRESTOR) 10 mg tablet Take 10 mg by mouth every other day. LORazepam (ATIVAN) 1 mg tablet Take 1 mg by mouth at bedtime as needed for anxiety. Do not start before February 11, 2023. No family history on file. Social History Tobacco Use Smoking status: Former Packs/day: 1.00 Years: 30.00 Additional pack years: 0.00 Total pack years: 30.00 Types: Cigarettes Start date: 1992 Quit date: 01/19/2023 Years since quittin.1 Smokeless tobacco: Never Tobacco comments: Patient quite smoking 01/19/23 when she was admitted to the hospital Substance Use Topics Alcohol use: Not Currently Drug use: Never REVIEW OF SYSTEMS: GENERAL: No weight loss, malaise or fevers RESPIRATORY: Negative for cough, hemoptysis, wheezing, COPD, (more content not included)... [facility] 03-01-2023 Miscellaneous Notes SITUATION: Assisted routine visit completed today. only patient also present during today's visit. patient reports the following: Allergies--reviewed Medications--reviewed current medications Falls--None DME-Reviewed and added to chart BACKGROUND: Vignesh gangrene Reason for Home Care: Wound Care ASSESSMENT: SN greeted at door by patient utilizing walker and demonstrates stable gait. Patient appears in no acute distress. Patient/CG concerns verbalized today: No acute acute Vitals (see flow sheet for details): stable SN findings today: Patient is alert, oriented, pleasant and cooperative with nursing visit. See intervention summary for education details. Patient demonstrated a need for further skilled SN services for chronic disease management & education, medication education, wound/skin care, safety and infection control/prevention. Current Discharge plan: self-care and family support RECOMMENDATION: Next visit to focus on (be specific): Negative Pressure Wound Therapy / O2 management documented in this encounter [facility] 02-27-2023 Miscellaneous Notes SITUATION: Assisted routine visit completed today. only patient present during today's visit. patient reports the following: Allergies--reviewed Medications--reviewed current medications Falls--None BACKGROUND: Reason for Home Care: wound care ASSESSMENT: SN greeted at door by no one. Upon entrance patient found in chair Patient appears in no acute distress. Patient/CG concerns verbalized today: pt reports that she has had some bleeding from the edge of the dressing. Vitals (see flow sheet for details): stable SN findings today: Pt ambulated to bedroom for care. SN notes no area of bleeding and no wound evident at dressing edge. Wound vac dressing removed. Wound bed is mostly beefy red, some yellowish tissue noted mid wound. Small amount of bleeding with dressing removal. Periwound skin is in good condition. No breaks in vac therapy since last SN vs. Pt has not been wearing the oxygen during the day, she does wear it at night. Pulse ox 98% on RA today. Pt denies any shortness of breath and SN does not note any with activity in the home. See intervention summary for education details. Patient demonstrated a need for further skilled SN services for chronic disease management & education, wound/skin care and safety. Current Discharge plan: self-care RECOMMENDATION: Next visit to focus on (be specific): wound vac dressing change documented in this encounter [facility] 02-25-2023 Miscellaneous Notes Pt called stating Her wound vac has a leakage message, Pt. can't do wet to dry b/c she can't reach the wound. Pt. has all her supplies. sent to scheduling for SN visit documented in this encounter [facility] 02-24-2023 Miscellaneous Notes Received a call from a patient stating her wound seems to be burning with some discomfort when she is moving around - Spoke with patient, wound vac not leaking, not alarming, instructed on some discomfort when the wound vac is suctioning/ pulling drainage into cannister, can occur when wound vac is new, or a lot of drainage. Patient states it is just a little discomfort once in a while and just wanted to make sure it was fine. Instructed this patient to call back if there are any other issues or concerns or wound vac becomes very uncomfortable documented in this encounter [facility] 02-23-2023 Note HNO ID: [id number] Author: Elroy Calvo APRN.MELONY Service: ? Author Type: Nurse Practitioner Type: Progress Notes Filed: 02/23/2023 1:24 PM Note Text: WOUND CENTER PROGRESS NOTE PATIENT NAME: Carolyn Parnell DATE OF FOLLOW UP: 02/23/2023 REASON FOR FOLLOW UP: right groin wound HISTORY OF PRESENT ILLNESS: Carolyn Parnell is a 57 year old y/o female w/ hx HTN, HLD, anxiety, obesity who presents for wound assessment and treatment evaluation of right groin wound. Pt started having lower pelvic/right groin pain Sept 2022 (01/16/2023). She went to the ED for evaluation and was subsequently admitted (01/17/2023-01/26/2023) for right groin soft tissue infection. She became septic while hospitalized requiring intubation and mechanical ventilation. CT abdomen/pelvis showed gas within the soft tissues of the right side of mons pubis extending into the right groin; gas forming infection suspected. She was evaluated by infectious disease and was treated with IV antibiotics throughout the hospital stay. She underwent surgical debridement on 01/18/2023 and another bedside debridement on 01/25/2023. Tissue culture grew rare Staph simulans and few Actinomyces species. Her hospitalization was also complicated by episodes of shortness of breath, requiring O2 and IV Lasix. She was discharged to [facility] on 01/26/2023. She was to be evaluated for possible wound vac placement, but the wound vac was not started. She was discharged home with [facility] on 02/09/2023. Pt lives alone and is unable to take care of the wound herself d/t the location of the wound. She is unable to visualize the wound d/t wound location in groin under pannus to appropriately dress the wound. She states she was smoking up until her hospitalization and has not smoked since. She has assistance of [facility] for wound care twice a week.. Location: right groin Onset: 01/16/2023 Aggravating factors: Infection and obesity Wound etiology: infection Associated pain with wound: No Relieving factors for wound pain: n/a Treatments: Current: silver alginate Past: Dakin's moistened gauze, saline moistened gauze No past medical history on file. No past surgical history on file. ALLERGIES ALLERGIES Allergen Reactions Morphine Hives Naproxen Hives CURRENT OUTPATIENT MEDICATIONS OXYGEN, HOME THERAPY, 2 L/min by Nasal Cannula route continuous. Dexlansoprazole 60 mg CpDM Take 60 mg by mouth once daily. famotidine (PEPCID) 20 mg tablet Take 1 tablet by mouth two times a day as needed (heartburn). (Patient not taking: Reported on 02/19/2023) furosemide (LASIX) 20 mg tablet Take 1 tablet by mouth two times a day. hydroCHLOROthiazide 12.5 mg tablet Take 1 tablet by mouth once daily. lisinopril (ZESTRIL) 10 mg tablet Take 1 tablet by mouth once daily. miconazole 2 % powder Apply 1 application to affected area two times a day. SUMAtriptan (IMITREX) 50 mg tablet Take 1 tablet (50 mg) by mouth as needed for migraine headache (see administration instructions). May repeat dose after 2 hours if needed. Maximum daily dose is 200 mg per day. zinc oxide 20 % ointment Apply to affected area as needed. (Patient taking differently: Apply 1 application to affected area as needed for dry skin.) sodium hypochlorite (DAKIN'S QUARTER STRENGTH) 0.125 % soln Irrigate 5 mL as instructed once daily. acetaminophen (TYLENOL) 500 mg tablet Take 2 tablets by mouth every 8 hours as needed for pain or fever (specify). albuterol HFA (VENTOLIN HFA) 90 mcg/actuation inhaler Inhale 2 Puffs as instructed every 4 hours as needed for wheezing/shortness of breath. gabapentin (NEURONTIN) 300 mg capsule Take 300 mg by mouth three times a day. Do not start before February 11, 2023. escitalopram oxalate (LEXAPRO) 10 mg tablet Take 10 mg by mouth once daily. (Patient not taking: Reported on 02/19/2023) rosuvastatin (CRESTOR) 10 mg tablet Take 10 mg by mouth every other day. LORazepam (ATIVAN) 1 mg tablet Take 1 mg by mouth at bedtime as needed for anxiety. Do not start before February 11, 2023. No family history on file. Social History Tobacco Use Smoking status: Former Packs/day: 1.00 Years: 30.00 Additional pack years: 0.00 Total pack years: 30.00 Types: Cigarettes Start date: 1992 Quit date: 01/19/2023 Years since quittin.0 Smokeless tobacco: Never Tobacco comments: Patient quite smoking 01/19/23 when she was admitted to the hospital Substance Use Topics Alcohol use: Not Currently Drug use: Never REVIEW OF SYSTEMS: GENERAL: No weight loss, malaise or fevers RESPIRATORY: Negative for cough, hemoptysis, wheezing, COPD, dyspnea or shortness of breath CARDIOVASCULAR: Negative for chest pain, leg swelling, hypertension, CHF or palpitations GI: No nausea, vomiting, or diarrhea MUSCULOSKELETAL: Negative for joint pain or swelling, back pain or muscle pain SKIN: Positive for wound, right groin HEMATO (more content not included)... [facility] 02-23-2023 Instructions Sarahi Blanca RN - 02/23/2023 12:16 PM EDT WOUND CARE INSTRUCTIONS- Carolyn Parnell Wound location: right groin [facility] FAX: [phone] [facility] Home Care is to start wound vac dressing changes on Sunday February 26, 2023 Keep your Wound Vac dressing dry and intact until your next dressing change. If your Wound Vac fails, please remember that you have 2 hours to get it running. At the 2 hour bridgett please remove the entire dressing, wound packing, and all of the elle-wound dressing and begin the alternate dressing as written below. ALTERNATE DRESSING IF WOUND VAC MUST BE REMOVED: 1. Wash your hands with soap and water before and after wound care. 2. Gather all supplies needed. 3. Apply Vashe moistened gauze to the wound and allow to soak for 5-10 minutes, then remove and wipe the wound clean. 4. Sprinkle Miconazole powder to groin skin folds twice daily 5. Apply Calcium Alginate Ag (Silver Alginate) - felt like material to wound bed 6. Cover with [place] SAP silicone bordered foam dressing 7. Change your dressing every other day and as needed to maintain a clean, dry, intact dressing Wound vac settings 150 mmhg negative pressure High intensity Continuous suction Change dressings -W- 1. Wash your hands with soap and water before and after wound care. 2. Gather all supplies needed. 3. Shower on the days that your home care nurse is visiting; keep the wound covered with your dressing while showering, then remove the dressing after your shower and cover the wound with clean gauze until your nurse arrives 4. Apply Vashe soak: apply Vashe moistened gauze to the wound and allow to soak for 5-10 minutes, then remove and wipe the wound clean 5.Sprinkle the miconazole (anti-fungal powder) to groin skin folds 6. Skin prep and mastisol to the elle-wound 7. Apply Goldie's seal to distal aspect of wound 8. Window wound with wound vac drape 9. Lightly pack wound with Simplace black foam 10. Secure with clear vac drape and attach suction disc tracked to right upper anterior thigh 11. Pad between vac tubing and patients skin To give your wound the best chance to heal: - Eat three balanced meals daily focusing on the protein - Control swelling by elevating the extremity above your heart - Complete your wound care instructions - Vitamin C 500 mg twice daily - Multiple Vitamin Daily - Drink a protein shake daily Report any of the following changes [phone] or go to the Emergency Department: Fever or chills Increased drainage Green or yellow drainage Foul odor Increased pain Hardness around the wound Redness, warmth or swelling of the surrounding tissue Color change to the wound Plan: Follow-up in the wound center with Elroy Calvo CNP: Sunday03/02/23, 03/09/23 and 03/23/23 all at 10:45 am Continue aggressive nutritional support for optimal wound healing Imaging Scheduling: Call [phone] to schedule your MRI or Cat Scan. Elroy Calvo CNP/BB/SV documented in this encounter [facility] 02-23-2023 History of Present illness Narrative Images from the original note were not included. WOUND CENTER PROGRESS NOTE PATIENT NAME: Carolyn Parnell DATE OF FOLLOW UP: 02/23/2023 REASON FOR FOLLOW UP: right groin wound HISTORY OF PRESENT ILLNESS: Carolyn Parnell is a 57 year old y/o female w/ hx HTN, HLD, anxiety, obesity who presents for wound assessment and treatment evaluation of right groin wound. Pt started having lower pelvic/right groin pain Sept 2022 (01/16/2023). She went to the ED for evaluation and was subsequently admitted (01/17/2023-01/26/2023) for right groin soft tissue infection. She became septic while hospitalized requiring intubation and mechanical ventilation. CT abdomen/pelvis showed gas within the soft tissues of the right side of mons pubis extending into the right groin; gas forming infection suspected. She was evaluated by infectious disease and was treated with IV antibiotics throughout the hospital stay. She underwent surgical debridement on 01/18/2023 and another bedside debridement on 01/25/2023. Tissue culture grew rare Staph simulans and few Actinomyces species. Her hospitalization was also complicated by episodes of shortness of breath, requiring O2 and IV Lasix. She was discharged to [facility] on 01/26/2023. She was to be evaluated for possible wound vac placement, but the wound vac was not started. She was discharged home with [facility] on 02/09/2023. Pt lives alone and is unable to take care of the wound herself d/t the location of the wound. She is unable to visualize the wound d/t wound location in groin under pannus to appropriately dress the wound. She states she was smoking up until her hospitalization and has not smoked since. She has assistance of [facility] for wound care twice a week.. Location: right groin Onset: 01/16/2023 Aggravating factors: Infection and obesity Wound etiology: infection Associated pain with wound: No Relieving factors for wound pain: n/a Treatments: Current: silver alginate Past: Dakin's moistened gauze, saline moistened gauze No past medical history on file. No past surgical history on file. ALLERGIES ALLERGIES Allergen Reactions Morphine Hives Naproxen Hives CURRENT OUTPATIENT MEDICATIONS OXYGEN, HOME THERAPY, 2 L/min by Nasal Cannula route continuous. Dexlansoprazole 60 mg CpDM Take 60 mg by mouth once daily. famotidine (PEPCID) 20 mg tablet Take 1 tablet by mouth two times a day as needed (heartburn). (Patient not taking: Reported on 02/19/2023) furosemide (LASIX) 20 mg tablet Take 1 tablet by mouth two times a day. hydroCHLOROthiazide 12.5 mg tablet Take 1 tablet by mouth once daily. lisinopril (ZESTRIL) 10 mg tablet Take 1 tablet by mouth once daily. miconazole 2 % powder Apply 1 application to affected area two times a day. SUMAtriptan (IMITREX) 50 mg tablet Take 1 tablet (50 mg) by mouth as needed for migraine headache (see administration instructions). May repeat dose after 2 hours if needed. Maximum daily dose is 200 mg per day. zinc oxide 20 % ointment Apply to affected area as needed. (Patient taking differently: Apply 1 application to affected area as needed for dry skin.) sodium hypochlorite (DAKIN'S QUARTER STRENGTH) 0.125 % soln Irrigate 5 mL as instructed once daily. acetaminophen (TYLENOL) 500 mg tablet Take 2 tablets by mouth every 8 hours as needed for pain or fever (specify). albuterol HFA (VENTOLIN HFA) 90 mcg/actuation inhaler Inhale 2 Puffs as instructed every 4 hours as needed for wheezing/shortness of breath. gabapentin (NEURONTIN) 300 mg capsule Take 300 mg by mouth three times a day. Do not start before February 11, 2023. escitalopram oxalate (LEXAPRO) 10 mg tablet Take 10 mg by mouth once daily. (Patient not taking: Reported on 02/19/2023) rosuvastatin (CRESTOR) 10 mg tablet Take 10 mg by mouth every other day. LORazepam (ATIVAN) 1 mg tablet Take 1 mg by mouth at bedtime as needed for anxiety. Do not start before February 11, 2023. No family history on file. Social History Tobacco Use Smoking status: Former Packs/day: 1.00 Years: 30.00 Additional pack years: 0.00 Total pack years: 30.00 Types: Cigarettes Start date: 1992 Quit date: 01/19/2023 Years since quittin.0 Smokeless tobacco: Never Tobacco comments: Patient quite smoking 01/19/23 when she was admitted to the hospital Substance Use Topics Alcohol use: Not Currently Drug use: Never REVIEW OF SYSTEMS: GENERAL: No weight loss, malaise or fevers RESPIRATORY: Negative for cough, hemoptysis, wheezing, COPD, dyspnea or shortness of breath CARDIOVASCULAR: Negative for chest pain, leg swelling, hypertension, CHF or palpitations GI: No nausea, vomiting, or diarrhea MUSCULOSKELETAL: Negative for joint pain or swelling, back pain or muscle pain SKIN: Positive for wound, right groin HEMATOLOGY/LYMPHOLOGY: Negative for prolonged bleeding, bruising easily or swollen nodes ENDOCRINE: Negative for cold or heat intolerance, polyuria, polydipsia and goiter NEURO: No history of headaches, syncope, paralysis, seizures or tremors Nutrition Diet: regular Supplement: Ensure Appetite: good PHYSICAL EXAM: BP 112/76 / Pulse 86 / Resp 16 / Temp 96.7F / SpO2 92% General appearance: Well appearing, alert, in no acute distress, well-hydrated, well nourished. and Obese Skin: Skin color, texture, turgor normal, no suspicious rashes or lesions. Positives: wound, right groin (see wound assessment). Improved mild moist erythema of abdominal skin fold/ pannus fold, no drainage, no open wounds. Head: Normocephalic, no masses, lesions, tenderness or abnormalities Eyes: Anicteric sclera. Pupils are equally round and reactive to light. Extraocular movements are intact. Lungs: normal respiratory rate and rhythm Abdomen: Abdomen soft, non-tender, obese w/ large pannus. Extremities: Edema: none Musculoskeletal: No joint swelling, deformity, or tenderness Neuro: Oriented X 3. Ambulatory WOUND ASSESSMENT Wound 1: Location: right groin Type: abscess Stage: NA Exposed structure:Muscle Progress: improved Wound measurements (cm): 6.5 x 4.0 x 3.2 (depth measured @ 1100) Full thickness- Yes Tunneling/undermining: undermining present: 2.1cm at 3696-1978 o'clock; tunnel, 3.3cm @1100 Wound tissue color: 100% red Periwound tissue: dry and intact Drainage: thick serosanguinous, medium amount Drainage odor: none DATA PHOTOGRAPHY: yes A photo was taken of the patient's wound(s). Photos can be found under the [facility] images tab on [facility]. The purpose of the photo(s) is to optimize the patient's medical care and allow a visual aid to their wound evaluation and progress. The photo(s) are not intended for publication, education, or research. If the use of the photo is desired in any additional way, other than for the above outlined purposes, then an additional consent for the intended use will need to be obtained by the requesting provider. Photo was taken of: right groin Verbal consent was obtained: yes WBC Date Value 01/29/2023 8.00 k/uL 01/28/2023 12.35 k/uL 01/27/2023 10.86 k/uL 08/19/2013 8.3 thou/cmm 08/14/2008 6.73 k/uL 08/14/2008 7.03 k/uL Hemoglobin (g/dL) Date Value 01/29/2023 10.6 01/28/2023 11.3 01/27/2023 11.0 08/14/2008 11.6 08/14/2008 12.3 08/13/2008 12.6 HGB (g/dL) Date Value 08/19/2013 13.7 PT INR (no units) Date Value 08/13/2008 1.0 Sodium Date Value 01/29/2023 137 mmol/L 01/28/2023 137 mmol/L 01/26/2023 140 mmol/L 08/19/2013 136 mEq/L 08/14/2008 138 mmol/L 08/13/2008 138 mmol/L Potassium Date Value 01/29/2023 3.8 mmol/L 01/28/2023 4.1 mmol/L 01/26/2023 3.8 mmol/L 08/19/2013 3.4 mEq/L 08/14/2008 4.3 mmol/L 08/13/2008 4.2 mmol/L CO2 Date Value 01/29/2023 39 mmol/L 01/28/2023 40 mmol/L 01/26/2023 43 mmol/L 08/19/2013 26 mEq/L 08/14/2008 26 mmol/L 08/13/2008 28 mmol/L BUN (mg/dL) Date Value 01/29/2023 9 01/28/2023 11 01/26/2023 18 08/19/2013 21 08/14/2008 7 08/13/2008 9 AST (U/L) Date Value 08/19/2013 19 08/13/2008 21 ALT (U/L) Date Value 08/19/2013 28 08/13/2008 17 Bilirubin, Total (mg/dL) Date Value 08/19/2013 0.4 08/13/2008 0.4 Alkaline Phosphatase (U/L) Date Value 08/19/2013 82 08/13/2008 60 Lactate (mmol/L) Date Value 01/27/2023 0.9 01/19/2023 1.3 01/18/2023 1.4 01/18/2023 1.6 Vancomycin (ug/mL) Date Value 01/19/2023 10.4 MICROBIOLOGY: Reviewed IMAGING: Reviewed IMPRESSION/RECOMMENDATIONS The patient's age and other co morbidities are likely to impact wound and skin integrity Additional impediments to healing Diabetic: No Anticoagulation: No Antibiotics: No Steroids: No (L98.492) Skin ulcer of abdomen with fat layer exposed (HCC) (M79.89) Necrotizing soft tissue infection (L30.4) Erythema intertrigo Comment: Wound improved. No s/s acute infection. Plan: - Irrigate wound and periwound skin with normal saline and gauze . Vashe soak to wound. Skin prep, Miconazole powder, then Mastisol to periwound. Apply wound vac with black foam to base and tucked into undermining, Goldie seal to distal periwound groin fold. Bridge away from wound to right thigh. 150mmHg continuous pressure, high intensity. Change M-W-F and prn. (See nursing note for alternate dressing instructions) - Cleanse abdominal fold with soap and water daily. Pat dry. Apply Miconazole 2% powder abdominal fold area twice a day. - Continue aggressive nutritional support to assist wound healing - Follow up in wound center in one week I discussed the plan in detail with the patient and the patient verbalizes understanding and is in agreement. Elroy Calvo APRN, CIRCULAR [employer] FUSER, CWS Certified Clinical Studies Specialist February 23, 2023 documented in this encounter [facility] 02-23-2023 Nurse Note Nursing Documentation Pertinent Medical History: HTN, elevated cholesterol, anxiety, obesity, colon resection 2008 due to diverticulitis and perforation Wound Etiology according to patient: pain in right groin with shivering, went to the ER 01/17/23 and admitted, became septic; S/P I&D Right groin 01/18/23 Respiratory failure, intubated, pulmonary hypertension Patient arrived via: ambulatory Home Care Company/Nursing Facility: [facility] FAX: [phone] Consent captured for debridement per Elroy Calvo CNP and yoseph until July 2023 Special Instructions: bed Anticoagulant Therapy: none Living Situation: mobile home Who lives with patient: self Who will be performing wound care: [facility] Available Support System: sister & neighbors In-Home Assist Devices: walker 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, 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[place] Provider seeing patient: Elroy Calvo CNP ___ WOUND ASSESSMENT: Refer to Provider's Wound Assessment Note VASCULAR ASSESSMENT BY PROVIDER: N/A CHF History: denies (hx: pulmonary hypertension) Smoking: quit 01/19/23 Education: EDEMA: N/A wound located on right groin Right foot: Right calf: Left foot : Left Calf: Other: MEASUREMENTS: in CM N/A wound located on right groin Right Calf: Right Ankle: Left Calf: Left Ankle: Length: WOUND PHOTOGRAPHY: YES x 1 DEBRIDEMENT PROCEDURE BY PROVIDER: Anesthetic Used: N/A Wound # Other procedure: N/A Specimen collected: N/A WOUND TREATMENT PER MD ORDER: Wounds cleansed by mechanical debridement to allow provider to visualize wound base WOUND # 1 LOCATION: Right groin (01/19/23) L: 6.5 cm x W: 4.0 cm x D: 3.2 cm (depth measured at the 11:00 position) Undermining 12:00-5:00 2.1 Tunnel 11:00 = 3.3 cm Debridement by Provider: N/A Post Debridement Measurements: L: cm x W: cm x D: cm Cleansed with: Vashe soak Applied to elle-wound skin: skin prep, miconazole powder, mastisol, vac drape, Goldie's seal Applied to wound bed: Black foam Covered and secured with: Vac drape, suction disc Other: Skin prep and mastisol to the elle-wound. Window wound with wound vac drape Apply Goldie's seal to distal aspect of wound Lightly pack wound with Simplace black foam Secure with clear vac drape and attach suction disc tracked to upper anterior thigh Pad between vac tubing and patients skin Wound Vac Settings: Continuous pressure at 150 mmHg High intensity Change dressings -W- NPWT Tracking : Wound location: Right groin Vac Start date: 02/23/2023 Vac Hold date: Vac Restart date: Hospitalization date: COMPRESSION: N/A SPECIAL NEEDS: Coordination of care - orders faxed to [facility] Emotional support N/A OR set-up N/A Coroner'S Juror N/A Incontinence needs N/A DISCHARGED in stable condition to: ambulatory to home Global surgical period dates if applicable: 01/19/23 - 04/18/23 Plan: Follow-up in the wound center with Elroy Calvo CNP Sunday03/02/23 and 03/09/23 and 03/23/23 all at 10:45 am Continue aggressive nutritional support for optimal wound healing Imaging Scheduling: Call [phone] to schedule your MRI or Cat Scan EDUCATION: The patient/family was instructed how to cleanse the wound(s). Visual demonstration on how to apply the dressing with teach back method. Signs & symptoms of infection were reviewed: Increased redness, swelling, pain, green/yellow drainage, fever and/or chills would all need to be evaluated by a Physician. Patient received typed home-going wound care instructions and has expressed intent to comply. OTHER EDUCATION: Elroy discussed with patient wound care, wound vac application; good nutrition and protein intake. Wound care orders obtained. Education performed regarding lymphedema/edema: Elevation of extremity above the heart for 30 minutes three times daily and as needed Exercise such as writing the ABC's with your toes in the air, walking and/or calf pumps Wearing compression as ordered by provider Diet controlling of sodium as instructed by provider Use of medication to help control edema. UNIVERSAL PROTOCOL / SAFETY CHECKLIST: N/A Current HBOT Status: Active or Complete - see screening below WOUND CENTER HYPERBARIC OXYGEN THERAPY SCREENING 1. Is the patient diabetic? (If No, skip to question 5) No 5. Has the patient been diagnosed with osteomyelitis? No 6. Has the patient had a previous skin graft or flap at the wound? No 7. Has the patient had or been offered vascular intervention/evaluation? No 8. Does the patient have a wound at an amputation site? No 9. Has the patient had radiation therapy at the site of the problem? No If Yes to ANY of questions 5-9, consult the [facility] Administration 02-22-2023 History of Present illness Narrative Subjective Patient ID: Isabella Parnell is a 57 y.o. female who presents for Hospital Follow-up (Abscess in abdomen ). Isabella comes to the office for a hospital follow-up. Was admitted on 01/17/2023 for right groin soft tissue infection. During her hospitalization she became septic requiring intubation. She has had 2 surgical debridements of her wound. During hospitalization she went into heart failure placed on oxygen and diuresed. She went to a transitional care unit and has been released to her home with home health care doing dressing changes 3 times per week. She is scheduled tomorrow to have wound VAC placed. Quit smoking in December. Has lost 70 pounds during her hospitalization. She also had right upper lobe (apex) pneumonia and UTI. Has stopped drinking and is on a high protein diet, taking VitC & MVI & ensure daily. Doing home exercises 2x/D Wearing o2 @ night occasionally during day + snoring Last Labs from 01/29/23 Review of Systems Constitutional: Negative for chills, fatigue and fever. Cardiovascular: Positive for leg swelling. Negative for chest pain and palpitations. Gastrointestinal: Negative for abdominal pain and blood in stool. Skin: Positive for wound. R side of mons pubis Neurological: Negative for dizziness, light-headedness and headaches. Psychiatric/Behavioral: Negative for decreased concentration. The patient is not nervous/anxious. Objective BP 130/78 Pulse 84 Ht 1.702 m (5' 7) Wt 114 kg (251 lb) SpO2 95% BMI 39.31 kg/m Physical Exam Vitals reviewed. Constitutional: General: She is not in acute distress. Appearance: Normal appearance. She is obese. She is not toxic-appearing. Neck: Thyroid: No thyromegaly. Cardiovascular: Rate and Rhythm: Normal rate and regular rhythm. Pulmonary: Effort: Pulmonary effort is normal. Breath sounds: Decreased air movement present. Abdominal: General: Abdomen is protuberant. Bowel sounds are decreased. Palpations: Abdomen is soft. Tenderness: There is no abdominal tenderness. Musculoskeletal: Right lower le+ Edema present. Left lower le+ Edema present. Lymphadenopathy: Cervical: No cervical adenopathy. Skin: Comments: Large open wound to R mons pubic; packing 3x/wk Neurological: Mental Status: She is alert. Psychiatric: Behavior: Behavior is cooperative. Assessment/Plan Problem List Items Addressed This Visit ICD-10-CM Hyperlipemia E78.5 Relevant Medications rosuvastatin (Crestor) 10 mg tablet Other Relevant Orders CBC and Auto Differential Comprehensive Metabolic Panel Follow Up In Primary Care - Established Hypertension I10 Relevant Medications lisinopriL-hydrochlorothiazide 10-12.5 mg tablet Prediabetes R73.03 Relevant Orders Hemoglobin A1C Follow Up In Primary Care - Established Pulmonary hypertension ([facility]) - Primary I27.20 Relevant Orders Referral to Cardiology Follow Up In Primary Care - Established Snoring R06.83 Relevant Orders Home sleep apnea test (HSAT) 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 Pulmonary hypertension ([facility]) Referral to Cardiology Follow Up In Primary Care - Established lasix 20mg BID, referral to [facility] cardiology 2. Secondary hypertension lisinopriL-hydrochlorothiazide 10-12.5 mg tablet BP @ goal, CK CMP; refill lisinopril 3. Hyperlipidemia, unspecified hyperlipidemia type rosuvastatin (Crestor) 10 mg tablet CBC and Auto Differential Comprehensive Metabolic Panel Follow Up In Primary Care - Established refill crestor 4. Snoring Home sleep apnea test (HSAT) ck HST 5. 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 surgical debridement in Dec. 7. History of acute respiratory failure remains on o2 @ HS; + pul HTN, ck HST refer to cardiology documented in this encounter [facility] Work Phone: 02-22-2023 Instructions GUSTAVO Vaughan - 02/22/2023 10:40 AM EDT Office visit in 1 month with fasting labs prior Schedule Home sleep test & referral to [facility] cardiology documented in this encounter [facility] Work Phone: 02-21-2023 Miscellaneous Notes SITUATION: Assisted routine visit completed today. only patient present during today's visit. patient reports the following: Allergies--reviewed Medications--reviewed current medications Falls--None BACKGROUND: Reason for Home Care: wound care ASSESSMENT: SN greeted at door by caregiver. Upon entrance patient found in chair Patient appears in no acute distress. Patient/CG concerns verbalized today: no special concerns. Vitals (see flow sheet for details): stable SN findings today: Pt sitting in recliner. She ambulated to bedroom for care. Dressing fell off yesterday and pt has covered with a depends. SN instructed pt to use an ABD pad to cover the area under her Depends. R groin wound is bright red and appears very healthy. There is a small amount of light yellow drainage, no odor is noted. New wound care orders followed today using Silver alginate, EXCEL SAP dressing. Pt is going back to wound center on 02/23 and they are going to start wound vac therapy. Pt reports that the pain has been tolerable and she tolerated wound care well. Pt reports that she has been wearing the oxygen for the most part but has been taking it off for periods. She did not wear the oxygen back to bedroom for care and after returning to living room her pulse ox was 86%, she was not short of breath. SN advised pt that she should be wearing it all the time. She verbalizes understanding. See intervention summary for education details. Patient demonstrated a need for further skilled SN services for wound/skin care. Current Discharge plan: self-care RECOMMENDATION: Next visit to focus on (be specific): wound care; pt will not need a vs on 02/23 due to wound center vs, assess for new wound care orders. documented in this encounter [facility] 02-19-2023 Note HNO ID: [id number] Author: Elroy Calvo APRN.CIRCULAR [employer]W [employer] FUSER Service: ? Author Type: Nurse Practitioner Type: Progress Notes Filed: 02/19/2023 4:33 PM Note Text: WOUND CENTER INITIAL VISIT PATIENT NAME: Carolyn Parnell DATE OF VISIT: 02/19/2023 REASON FOR VISIT: right groin wound HISTORY OF PRESENT ILLNESS: Carolyn Parnell is a 57 year old y/o female w/ hx HTN, HLD, anxiety, obesity, who presents for initial Wound Center visit for right groin wound. Pt reports she started having lower pelvic/right groin pain about 1 month ago (01/16/2023). She went to the ED for evaluation and was subsequently admitted (01/17/2023-01/26/2023) for right groin soft tissue infection. She became septic while hospitalized requiring intubation and mechanical ventilation. CT abdomen/pelvis showed gas within the soft tissues of the right side of mons pubis extending into the right groin; gas forming infection suspected. She was evaluated by infectious disease and was treated with IV antibiotics throughout the hospital stay. She underwent surgical debridement on 01/18/2023 and another bedside debridement on 01/25/2023. Tissue culture grew rare Staph simulans and few Actinomyces species. Her hospitalization was also complicated by episodes of shortness of breath, requiring O2 and IV Lasix. She was discharged to [facility] on 01/26/2023. She was to be evaluated for possible wound vac placement, but the wound vac was not started. She was discharged home with [facility] on 02/09/2023. Pt lives alone and is unable to take care of the wound herself d/t the location of the wound. She is unable to visualize the wound d/t wound location in groin under pannus to appropriately dress the wound. She states she was smoking up until her hospitalization and has not smoked since. She has assistance of [facility] for wound care twice a week at present. Location: right groin Onset: 01/16/2023 Aggravating factors: Infection and obesity Wound etiology: infection Associated pain with wound: No Relieving factors for wound pain: n/a Treatments: Current: Dakin's moistened gauze Past: saline moistened gauze No past medical history on file. No past surgical history on file. ALLERGIES ALLERGIES Allergen Reactions Morphine Hives Naproxen Hives CURRENT OUTPATIENT MEDICATIONS OXYGEN, HOME THERAPY, 2 L/min by Nasal Cannula route continuous. Dexlansoprazole 60 mg CpDM Take 60 mg by mouth once daily. famotidine (PEPCID) 20 mg tablet Take 1 tablet by mouth two times a day as needed (heartburn). furosemide (LASIX) 20 mg tablet Take 1 tablet by mouth two times a day. hydroCHLOROthiazide 12.5 mg tablet Take 1 tablet by mouth once daily. lisinopril (ZESTRIL) 10 mg tablet Take 1 tablet by mouth once daily. miconazole 2 % powder Apply 1 application to affected area two times a day. SUMAtriptan (IMITREX) 50 mg tablet Take 1 tablet (50 mg) by mouth as needed for migraine headache (see administration instructions). May repeat dose after 2 hours if needed. Maximum daily dose is 200 mg per day. zinc oxide 20 % ointment Apply to affected area as needed. (Patient taking differently: Apply 1 application to affected area as needed for dry skin.) sodium hypochlorite (DAKIN'S QUARTER STRENGTH) 0.125 % soln Irrigate 5 mL as instructed once daily. acetaminophen (TYLENOL) 500 mg tablet Take 2 tablets by mouth every 8 hours as needed for pain or fever (specify). albuterol HFA (VENTOLIN HFA) 90 mcg/actuation inhaler Inhale 2 Puffs as instructed every 4 hours as needed for wheezing/shortness of breath. gabapentin (NEURONTIN) 300 mg capsule Take 300 mg by mouth three times a day. Do not start before February 11, 2023. escitalopram oxalate (LEXAPRO) 10 mg tablet Take 10 mg by mouth once daily. rosuvastatin (CRESTOR) 10 mg tablet Take 10 mg by mouth every other day. LORazepam (ATIVAN) 1 mg tablet Take 1 mg by mouth at bedtime as needed for anxiety. Do not start before February 11, 2023. No family history on file. REVIEW OF SYSTEM: GENERAL: No weight loss, malaise or fevers RESPIRATORY: Negative for cough, hemoptysis, wheezing, COPD, dyspnea or shortness of breath CARDIOVASCULAR: Negative for chest pain, leg swelling, hypertension, CHF or palpitations GI: No nausea, vomiting, or diarrhea MUSCULOSKELETAL: Negative for joint pain or swelling, back pain or muscle pain SKIN: Positive for wound, right groin HEMATOLOGY/LYMPHOLOGY: Negative for prolonged bleeding, bruising easily or swollen nodes ENDOCRINE: Negative for cold or heat intolerance, polyuria, polydipsia and goiter NEURO: No history of headaches, syncope, paralysis, seizures or tremors Nutrition Diet:regular Supplement:Ensure Appetite: good PHYSICAL EXAM: BP 98/59 / Pulse 99 / Resp 18 / Temp 97.3F / SpO2 92% General appearance: Well appearing, alert, in no acute distress, well-hydrated, well nourished. and Obese Skin: Skin color, textu (more content not included)... [facility] 02-19-2023 Instructions Anette Sharpe RN - 02/19/2023 1:20 PM EDT WOUND CARE INSTRUCTIONS- Carolyn Parnell Wound location: right groin [facility] FAX: [phone] 1. Wash your hands with soap and water before and after wound care. 2. Gather all supplies needed. 3. Shower on the days that your home care nurse is visiting; keep the wound covered with your dressing while showering, then remove the dressing after your shower and cover the wound with clean gauze until your nurse arrives 4. Apply Vashe soak: apply Vashe moistened gauze to the wound and allow to soak for 5-10 minutes, then remove and wipe the wound clean 4. Apply silver alginate (felt-like material) to the wound base. 5. Cover with [place] SAP bordered foam dressing 6. Change your dressing every other day Sprinkle the miconazole (anti-fungal powder) to groin skin folds twice a day To give your wound the best chance to heal: - Eat three balanced meals daily focusing on the protein - Control swelling by elevating the extremity above your heart - Complete your wound care instructions - Vitamin C 500 mg twice daily - Multiple Vitamin Daily - Drink a protein shake daily Report any of the following changes [phone] or go to the Emergency Department: Fever or chills Increased drainage Green or yellow drainage Foul odor Increased pain Hardness around the wound Redness, warmth or swelling of the surrounding tissue Color change to the wound Plan: Follow-up in the wound center with Elroy Calvo CNP Sunday02/23/23 for anticipated wound VAC dressing application And then schedule follow-up appointment with Elroy for Sunday03/02/23 and 03/09/23 and 03/23/23 Please call this wound center on 02/22/23 to check if the wound VAC has been delivered This office will submit paperwork for the wound VAC Continue aggressive nutritional support for optimal wound healing Imaging Scheduling: Call [phone] to schedule your MRI or Cat Scan. Elroy Calvo CNP/zahira/gonzalez documented in this encounter [facility] 02-19-2023 Nurse Note Nursing Documentation Pertinent Medical History: HTN, elevated cholesterol, anxiety, obesity, colon resection 2009 due to diverticulitis and perforation Wound Etiology according to patient: pain in right groin with shivering, went to the ER 01/17/23 and admitted, became septic; S/P I&D Right groin 01/18/23 Respiratory failure, intubated, pulmonary hypertension Patient arrived via: ambulatory Home Care Company/Nursing Facility: [facility] FAX: [phone] Consent captured for debridement per Victor Manuel Oliveira until July 2023 Special Instructions: bed Anticoagulant Therapy: none Living Situation: mobile home Who lives with patient: self Who will be performing wound care: [facility] Available Support System: sister & neighbors In-Home Assist Devices: walker 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, 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[employer] Provider seeing patient: Elroy Calvo CNP ___ WOUND ASSESSMENT: Refer to Provider's Wound Assessment Note VASCULAR ASSESSMENT BY PROVIDER: N/A CHF History: denies (hx: pulmonary hypertension) Smoking: quit 01/19/23 Education: EDEMA: N/A wound located on right groin Right foot: Right calf: Left foot : Left Calf: Other: MEASUREMENTS: in CM N/A wound located on right groin Right Calf: Right Ankle: Left Calf: Left Ankle: Length: WOUND PHOTOGRAPHY: YES x 1 DEBRIDEMENT PROCEDURE BY PROVIDER: Anesthetic Used: 2% lidogel applied per jd edwards developer # 1 Other procedure: N/A Specimen collected: N/A WOUND TREATMENT PER MD ORDER: Wounds cleansed by mechanical debridement to allow provider to visualize wound base WOUND # 1 LOCATION: Right groin (01/19/23) L: 7.0 cm x W: 6.5 cm x D: 3.8 cm (depth measured at the 11:00 position) Undermining 3:00 = 1.5cm Tunnel 11:00 = 4.0cm Debridement by Provider: N/A Post Debridement Measurements: L: cm x W: cm x D: cm Cleansed with: Vashe soak Applied to elle-wound skin: skin prep and miconazole powder Applied to wound bed: silver alginate Covered and secured with: [place] SAP Other: COMPRESSION: N/A SPECIAL NEEDS: Coordination of care - orders faxed to [facility] and application for wound VAC faxed to [facility]/ Emotional support N/A OR set-up N/A Coroner'S Juror N/A Incontinence needs N/A DISCHARGED in stable condition to: ambulatory to home Global surgical period dates if applicable: 01/19/23 - 04/18/23 PLAN/ORDERS: Follow-up in the wound center with Elroy Calvo CNP Sunday02/23/23 for anticipated wound VAC dressing application And then schedule follow-up appointment with Elroy for Sunday03/02/23 and 03/09/23 and 03/23/23 Please call this wound center on 02/22/23 to check if the wound VAC has been delivered This office will submit paperwork for the wound VAC Continue aggressive nutritional support for optimal wound healing Imaging Scheduling: Call [phone] to schedule your MRI or Cat Scan. EDUCATION: The patient/family was instructed how to cleanse the wound(s). Visual demonstration on how to apply the dressing with teach back method. Signs & symptoms of infection were reviewed: Increased redness, swelling, pain, green/yellow drainage, fever and/or chills would all need to be evaluated by a Physician. Patient received typed home-going wound care instructions and has expressed intent to comply. OTHER EDUCATION: Elroy discussed with patient wound care, the need for a wound VAC; good nutrition and protein intake. Wound care orders obtained. Education performed regarding lymphedema/edema: Elevation of extremity above the heart for 30 minutes three times daily and as needed Exercise such as writing the ABC's with your toes in the air, walking and/or calf pumps Wearing compression as ordered by provider Diet controlling of sodium as instructed by provider Use of medication to help control edema. UNIVERSAL PROTOCOL / SAFETY CHECKLIST: N/A Current HBOT Status: Active or Complete - see screening below WOUND CENTER HYPERBARIC OXYGEN THERAPY SCREENING 1. Is the patient diabetic? (If No, skip to question 5) No 5. Has the patient been diagnosed with osteomyelitis? No 6. Has the patient had a previous skin graft or flap at the wound? No 7. Has the patient had or been offered vascular intervention/evaluation? No 8. Does the patient have a wound at an amputation site? No 9. Has the patient had radiation therapy at the site of the problem? No If Yes to ANY of questions 5-9, consult the Hyperbaric Center Anette Sharpe RN/gonzalez documented in this encounter [facility] 02-19-2023 History of Present illness Narrative Images from the original note were not included. WOUND CENTER INITIAL VISIT PATIENT NAME: Carolyn Parnell DATE OF VISIT: 02/19/2023 REASON FOR VISIT: right groin wound HISTORY OF PRESENT ILLNESS: Carolyn Parnell is a 57 year old y/o female w/ hx HTN, HLD, anxiety, obesity, who presents for initial Wound Center visit for right groin wound. Pt reports she started having lower pelvic/right groin pain about 1 month ago (01/16/2023). She went to the ED for evaluation and was subsequently admitted (01/17/2023-01/26/2023) for right groin soft tissue infection. She became septic while hospitalized requiring intubation and mechanical ventilation. CT abdomen/pelvis showed gas within the soft tissues of the right side of mons pubis extending into the right groin; gas forming infection suspected. She was evaluated by infectious disease and was treated with IV antibiotics throughout the hospital stay. She underwent surgical debridement on 01/18/2023 and another bedside debridement on 01/25/2023. Tissue culture grew rare Staph simulans and few Actinomyces species. Her hospitalization was also complicated by episodes of shortness of breath, requiring O2 and IV Lasix. She was discharged to [facility] on 01/26/2023. She was to be evaluated for possible wound vac placement, but the wound vac was not started. She was discharged home with [facility] on 02/09/2023. Pt lives alone and is unable to take care of the wound herself d/t the location of the wound. She is unable to visualize the wound d/t wound location in groin under pannus to appropriately dress the wound. She states she was smoking up until her hospitalization and has not smoked since. She has assistance of [facility] for wound care twice a week at present. Location: right groin Onset: 01/16/2023 Aggravating factors: Infection and obesity Wound etiology: infection Associated pain with wound: No Relieving factors for wound pain: n/a Treatments: Current: Dakin's moistened gauze Past: saline moistened gauze No past medical history on file. No past surgical history on file. ALLERGIES ALLERGIES Allergen Reactions Morphine Hives Naproxen Hives CURRENT OUTPATIENT MEDICATIONS OXYGEN, HOME THERAPY, 2 L/min by Nasal Cannula route continuous. Dexlansoprazole 60 mg CpDM Take 60 mg by mouth once daily. famotidine (PEPCID) 20 mg tablet Take 1 tablet by mouth two times a day as needed (heartburn). furosemide (LASIX) 20 mg tablet Take 1 tablet by mouth two times a day. hydroCHLOROthiazide 12.5 mg tablet Take 1 tablet by mouth once daily. lisinopril (ZESTRIL) 10 mg tablet Take 1 tablet by mouth once daily. miconazole 2 % powder Apply 1 application to affected area two times a day. SUMAtriptan (IMITREX) 50 mg tablet Take 1 tablet (50 mg) by mouth as needed for migraine headache (see administration instructions). May repeat dose after 2 hours if needed. Maximum daily dose is 200 mg per day. zinc oxide 20 % ointment Apply to affected area as needed. (Patient taking differently: Apply 1 application to affected area as needed for dry skin.) sodium hypochlorite (DAKIN'S QUARTER STRENGTH) 0.125 % soln Irrigate 5 mL as instructed once daily. acetaminophen (TYLENOL) 500 mg tablet Take 2 tablets by mouth every 8 hours as needed for pain or fever (specify). albuterol HFA (VENTOLIN HFA) 90 mcg/actuation inhaler Inhale 2 Puffs as instructed every 4 hours as needed for wheezing/shortness of breath. gabapentin (NEURONTIN) 300 mg capsule Take 300 mg by mouth three times a day. Do not start before February 11, 2023. escitalopram oxalate (LEXAPRO) 10 mg tablet Take 10 mg by mouth once daily. rosuvastatin (CRESTOR) 10 mg tablet Take 10 mg by mouth every other day. LORazepam (ATIVAN) 1 mg tablet Take 1 mg by mouth at bedtime as needed for anxiety. Do not start before February 11, 2023. No family history on file. \ REVIEW OF SYSTEM: GENERAL: No weight loss, malaise or fevers RESPIRATORY: Negative for cough, hemoptysis, wheezing, COPD, dyspnea or shortness of breath CARDIOVASCULAR: Negative for chest pain, leg swelling, hypertension, CHF or palpitations GI: No nausea, vomiting, or diarrhea MUSCULOSKELETAL: Negative for joint pain or swelling, back pain or muscle pain SKIN: Positive for wound, right groin HEMATOLOGY/LYMPHOLOGY: Negative for prolonged bleeding, bruising easily or swollen nodes ENDOCRINE: Negative for cold or heat intolerance, polyuria, polydipsia and goiter NEURO: No history of headaches, syncope, paralysis, seizures or tremors Nutrition Diet:regular Supplement:Ensure Appetite: good PHYSICAL EXAM: BP 98/59 / Pulse 99 / Resp 18 / Temp 97.3F / SpO2 92% General appearance: Well appearing, alert, in no acute distress, well-hydrated, well nourished. and Obese Skin: Skin color, texture, turgor normal, no suspicious rashes or lesions. Positives: wound, right groin (see wound assessment). Mild moist erythema of abdominal skin fold/ pannus fold, no drainage, no open wounds. Head: Normocephalic, no masses, lesions, tenderness or abnormalities Eyes: Anicteric sclera. Pupils are equally round and reactive to light. Extraocular movements are intact. Lungs: normal respiratory rate and rhythm Heart: regular rate and rhythm Abdomen: Abdomen soft, non-tender, obese w/ large pannus. Bowel sounds normal. Extremities: Edema: none Musculoskeletal: No joint swelling, deformity, or tenderness Peripheral pulses: Not examined Neuro: Oriented X 3. Ambulatory WOUND ASSESSMENT Wound 1: Location: right groin Type: abscess Stage: NA Exposed structure:Muscle Progress: Initial visit Wound measurements (cm): 7.0 x 6.5 x 3.8 (depth measured @ 1100) Full thickness- Yes Tunneling/undermining: undermining present: 1.5 cm at 0300 o'clock; tunnel, 4.0cm @1100 Wound tissue color: 100% red Periwound tissue: dry and intact Drainage: thick serosanguinous, medium amount Drainage odor: none DATA PHOTOGRAPHY:yes A photo was taken of the patient's wound(s). Photos can be found under the [facility] images tab on [facility]. The purpose of the photo(s) is to optimize the patient's medical care and allow a visual aid to their wound evaluation and progress. The photo(s) are not intended for publication, education, or research. If the use of the photo is desired in any additional way, other than for the above outlined purposes, then an additional consent for the intended use will need to be obtained by the requesting provider. Photo was taken of: right groin Verbal consent was obtained: yes WBC Date Value 01/29/2023 8.00 k/uL 01/28/2023 12.35 k/uL 01/27/2023 10.86 k/uL 08/19/2013 8.3 thou/cmm 08/14/2008 6.73 k/uL 08/14/2008 7.03 k/uL Hemoglobin (g/dL) Date Value 01/29/2023 10.6 01/28/2023 11.3 01/27/2023 11.0 08/14/2008 11.6 08/14/2008 12.3 08/13/2008 12.6 HGB (g/dL) Date Value 08/19/2013 13.7 PT INR (no units) Date Value 08/13/2008 1.0 Sodium Date Value 01/29/2023 137 mmol/L 01/28/2023 137 mmol/L 01/26/2023 140 mmol/L 08/19/2013 136 mEq/L 08/14/2008 138 mmol/L 08/13/2008 138 mmol/L Potassium Date Value 01/29/2023 3.8 mmol/L 01/28/2023 4.1 mmol/L 01/26/2023 3.8 mmol/L 08/19/2013 3.4 mEq/L 08/14/2008 4.3 mmol/L 08/13/2008 4.2 mmol/L CO2 Date Value 01/29/2023 39 mmol/L 01/28/2023 40 mmol/L 01/26/2023 43 mmol/L 08/19/2013 26 mEq/L 08/14/2008 26 mmol/L 08/13/2008 28 mmol/L BUN (mg/dL) Date Value 01/29/2023 9 01/28/2023 11 01/26/2023 18 08/19/2013 21 08/14/2008 7 08/13/2008 9 AST (U/L) Date Value 08/19/2013 19 08/13/2008 21 ALT (U/L) Date Value 08/19/2013 28 08/13/2008 17 Bilirubin, Total (mg/dL) Date Value 08/19/2013 0.4 08/13/2008 0.4 Alkaline Phosphatase (U/L) Date Value 08/19/2013 82 08/13/2008 60 Lactate (mmol/L) Date Value 01/27/2023 0.9 01/19/2023 1.3 01/18/2023 1.4 01/18/2023 1.6 Vancomycin (ug/mL) Date Value 01/19/2023 10.4 MICROBIOLOGY: Reviewed IMAGING: Reviewed IMPRESSION/RECOMMENDATIONS The patient's age and other co morbidities are likely to impact wound and skin integrity Additional impediments to healing Diabetic: No Anticoagulation: No Antibiotics: No Steroids: No (L98.492) Skin ulcer of abdomen with fat layer exposed (HCC) (M79.89) 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 Plan: - Irrigate right groin wound and periwound skin with normal saline and gauze . Vashe soak to wound. Skin prep periwound. Pack wound with silver alginate. Cover with 6x7 [place] SAP dressing. Change dressing -- and prn. - Wound center to order wound vac with plan first wound vac application on Sun02/23/2023 at wound center, with follow up wound vac applications by [facility]. - Cleanse abdominal fold with soap and water daily. Pat dry. Apply Miconazole 2% powder abdominal fold twice a day. - Aggressive nutritional support to assist wound healing as discussed - Follow up in wound center on Sun02/23/2023, plan wound vac application I discussed the plan in detail with the patient and the patient verbalizes understanding and is in agreement. Elroy Calvo APRN, MELONY, CWS Certified Clinical Studies Specialist February 19, 2023 documented in this encounter [facility] 02-18-2023 Miscellaneous Notes SITUATION: Assisted routine visit completed today. only patient also present during today's visit. patient reports the following: Allergies--reviewed Medications--reviewed current medications Falls--None DME-Reviewed and added to chart BACKGROUND: Reason for Home Care: WOUND CARE ASSESSMENT: SN greeted at door by patient utilizing walker and demonstrates stable gait. Patient appears in no acute distress. Patient/CG concerns verbalized today: NONE Vitals (see flow sheet for details): stable SN findings today: No new or abnormal changes today. Patient states she has no pain. Respirations clear and easy. Heart sounds regular. Bowel sounds in all quadrants. Patient states that her dressing continues to come off due to location of wound- many nurses have tried different ways to keep it on but nothing is working. Nurse completed wound care dressing change with no complications. Nurse secured dressing with large amounts of tape in hopes of keeping dressing on longer. Patient has a wound center appointment tomorrow and visits have been decreased for home care to 3 days a week. Nurse told patient that she has been decreased to 3 days a week, compared to the daily last week, and she is agreeable with this. Patient does not need any wound care supplies ordered at this time. Patient does not have any questions or concerns at this time. Patient told to reach out to office with questions. See intervention summary for education details. Patient demonstrated a need for further skilled SN services for chronic disease management & education, medication education and wound/skin care. Current Discharge plan: self-care and family support RECOMMENDATION: Next visit to focus on (be specific): wound care. measurements. check if there are new wound care orders from wound center. documented in this encounter [facility] 02-17-2023 Miscellaneous Notes SITUATION: Assisted routine visit completed today. only patient also present during today's visit. patient reports the following: Allergies--reviewed Medications--full medication reconciliation completed Falls--None DME-Reviewed and added to chart BACKGROUND: Reason for Home Care: pt with oxygen and wound care needs to [place] ASSESSMENT: SN greeted at door by patient no DME and demonstrates stable gait. Patient appears in no acute distress. Patient/CG concerns verbalized today: none. States she feels pretty good today. PT discharged her today Vitals (see flow sheet for details): stable SN findings today: pleasant woman wearing 02 2LNC. VSS. Assessment neg. Wound care provided as ordered and pt tolerated well. Wound with beefy red base and little mucous drainage. Tolerated well. See intervention summary for education details. Patient demonstrated a need for further skilled SN services for chronic disease management & education, medication education and wound/skin care. Current Discharge plan: self-care RECOMMENDATION: Next visit to focus on (be specific): wound care per POC documented in this encounter [facility] 02-17-2023 Miscellaneous Notes SITUATION: only patient present during today's visit. patient reports the following since the last homecare visit: medications/allergies--no changes, no fall. patient reports she has stopped smoking 1 month ago. She states she feels great since stopped smoking; no longer has leg swelling; is breathing better. BACKGROUND: Diagnoses (reason for Home Care): Sepsis, unspecified organism January 19 admitted to hosptial; surgery on that same day due to abdominal abcess. Was discharged to [facility] on January 26 and discharged home on February 09. Past Medical History: Htn (Hypertension) Anxiety Hld (Hyperlipidemia) Uti (Urinary Tract Infection) Pneumonia Cellulitis Panniculitis Nicotine use disorder, F17.2 Obesity, Class III, BMI >= 40 Necrotizing Soft Tissue Infection Alteration in Skin Integrity Due to Moisture Vignesh's Gangrene Mild Protein-Calorie Malnutrition (Hcc) Acute Respiratory Failure With Hypoxia (Hcc) ASSESSMENT: Patient evaluated by [facility] physical therapy. Reviewed and explained homecare services. Plan of care, goals, and visit frequency developed, reviewed, and agreed upon with patient and/or caregiver. Patient Goal: get back to PLOF The patient and I discussed home PT and she agrees she is doing well and does not need further PT services. RECOMMENDATION: The patient was given a HEP to perform 1-2 times a day. PT evaluation only; no further PT needs at this time. See intervention summary for intervention/education details. documented in this encounter [facility] 02-16-2023 Miscellaneous Notes SITUATION: OT evalaution only patient present during today's visit. patient reports the following since the last homecare visit: medications/allergies--no changes, no fall. BACKGROUND: Primary Diagnoses (reason for Home Care): Sepsis, unspecified organism Any one of the comorbidities from the list below may have a deleterious effect on the primary home care diagnosis. ACTIVE PROBLEM LIST Sepsis (Hcc) Htn (Hypertension) Anxiety Hld (Hyperlipidemia) Uti (Urinary Tract Infection) Pneumonia Cellulitis Panniculitis Nicotine use disorder, F17.2 Obesity, Class III, BMI >= 40 Necrotizing Soft Tissue Infection Alteration in Skin Integrity Due to Moisture Vignesh's Gangrene Mild Protein-Calorie Malnutrition (Hcc) Aftercare Acute Respiratory Failure With Hypoxia (Hcc) SPECIFIC ORDERS: - Precautions/Activity Restrictions: Fall Risk, Abdominal ASSESSMENT: Patient evaluated by [facility] occupational therapy. Reviewed and explained homecare services. Plan of care, goals and visit frequency developed, reviewed, and agreed upon with patient and/or caregiver. Current Discharge Plan:remain in community with/without caregiver support. Anticipate discharge by 02/16/23 RECOMMENDATION: See intervention summary for intervention/education details. documented in this encounter [facility] 02-15-2023 Miscellaneous Notes SITUATION: Assisted routine visit completed today. only patient also present during today's visit. patient reports the following: Allergies--reviewed Medications--reviewed current medications Falls--None DME-Reviewed and added to chart BACKGROUND: Reason for Home Care: wound care ASSESSMENT: pt called for SN to enter, pt sitting in recliner Patient appears in no acute distress. Patient/CG concerns verbalized today: none Vitals (see flow sheet for details): stable SN findings today: pt pleasant. pt ambulates with walker, SN taught pt falls prevention safety. pt wearing oxygen at 2L NC, SN taught pt oxygen safety. pt denies breathing issues, I feel so much better since I quit smoking. pt received wound care supplies. dressing has fallen off of wound. SN performed wound care as ordered. pt tolerated well. See intervention summary for education details. Patient demonstrated a need for further skilled SN services for wound/skin care. Current Discharge plan: self-care RECOMMENDATION: Next visit to focus on (be specific): wound care documented in this encounter [facility] 02-14-2023 Miscellaneous Notes SITUATION: Assisted routine visit completed today. only patient also present during today's visit. patient reports the following: Allergies--reviewed Medications--reviewed current medications Falls--None DME-Reviewed BACKGROUND: Reason for Home Care: R groin wound, new home oxygen, sepsis, respiratory failure ASSESSMENT: SN greeted at door by patient using walker and demonstrates stable gait. Patient appears in no acute distress. Patient/CG concerns verbalized today: Dressing falls off easiy Vitals (see flow sheet for details): WDL except: Blood Pressure: 92/60, pt asymptomatic SN findings today: Pt sitting in recliner upon SN arrival, using 2L NC. Pt reports feeling good this morning and denies any concerns/complaints. No medication changes, taking as prescribed. Pt reports mild/manageable pain to R groin wound as dressing fell off yesterday shortly after SN applied new dressing and has been RIKI with brief in place. VSS, LSCOA. Wound care provided. Periwound is slightly moist, wound bed red. Cleansed per orders and packed with wet to dry dressing. Foam adhesive used to see if this will stay in place better. Pt verbalized much comfort with this dressing. See intervention summary for education details. Patient demonstrated a need for further skilled SN services for chronic disease management & education, medication education, wound/skin care and safety. Current Discharge plan: self-care RECOMMENDATION: Next visit to focus on (be specific): wound care to R groin, c/p check documented in this encounter [facility] 02-13-2023 Miscellaneous Notes SITUATION: Assisted routine visit completed today. only patient also present during today's visit. patient reports the following: Allergies--reviewed Medications--reviewed current medications Falls--None DME-Reviewed BACKGROUND: Reason for Home Care: wound care, oxygen ASSESSMENT: SN greeted at door by patient no DME and demonstrates stable gait. Patient appears in no acute distress. Patient/CG concerns verbalized today: none Vitals (see flow sheet for details): stable SN findings today: Pt doing very well adn in such good spirits. Pt excited to tell SN that she quit smoking at her last admission and amazed at how muh better she feels. SN offered a lot fo encouragment adn congratulations to pt for this acomplishment. Wound care performed per order without complication. Pt seeing wound center sunday for possibly a wound vac application. No further questions or concerns at this time. See intervention summary for education details. Patient demonstrated a need for further skilled SN services for chronic disease management & education, wound/skin care and safety. Current Discharge plan: self-care RECOMMENDATION: Next visit to focus on (be specific): wound care documented in this encounter [facility] 02-12-2023 Miscellaneous Notes SITUATION: Assisted routine visit completed today. only patient also present during today's visit. patient reports the following: Allergies--reviewed Medications--reviewed current medications Falls--None DME-Reviewed BACKGROUND: Reason for Home Care: wound care to R perineum surgical wound ASSESSMENT: SN greeted at door by pt's sister Patient appears in no acute distress. Patient/CG concerns verbalized today: none voiced Vitals (see flow sheet for details): stable SN findings today: Pt pleasant and cooperative, in good spirits. She denies pain other than during dressing changes. VSS. LS diminished RLL, otherwise clear. Pt reports no longer having smoker's cough. On 2L NC continuously. No edmea noted. Pt denies issues r/t GI, . Educated pt regarding high protein diet. Pt verbalized understanding. R pelvis wound care completed, no excoriation noted this visit. Pt tolerated well. See intervention summary for education details. Patient demonstrated a need for further skilled SN services for chronic disease management & education, medication education, wound/skin care and safety. Current Discharge plan: self-care RECOMMENDATION: Next visit to focus on (be specific): wound care documented in this encounter [facility] 02-06-2023 Miscellaneous Notes Welcome Home Call: a. Date and Time: 12:20 PM 02/06/2023 b. Contact name/relationship: CAROLYN PARNELL Patient c. Have you been active with any Home Care company in the last 60 days (such as help with bathing, filling medications, checking your blood pressure, or assistance with an exercise program)? No. d. [facility] will be providing your care, are you agreeable to starting these services? yes (yes or no) e. Do you have any upcoming appointments in the next few days, or restrictions to your schedule? 02/09/23 f. Caregiver: Patient is able to manage care independently g. Confirmed Visited Location and preferred #: Address: [address] [place] [address] [address] [facility] [id number] h. Was patient given Flu shot this Season (After Dec,): Yes: Location: in hospital , Date received: 02/12 Please keep our your medications both over the counter and prescribed out for the home care to review, your hospital discharge instructions and write down any questions you might have. While we focus on providing safe care, in support of this mission, we ask you to: Be respectful of our caregivers. Do not raise your voice or use profanity. You and your family/caregivers must be considerate of our organization's staff and property. Promote a safe and respectful environment. We will not tolerate any form of threatening or aggressive behaviors towards our caregiver team. This includes verbal, physical or sexual behaviors: - Examples include acts or threats of physical violence, harassment, intimidation, abusive or foul language, or other aggressive, disruptive or discriminatory behavior. Any firearms or weapons in the home must be stored and locked in a separate room from where care is taking place. Firearms or other weapons should not be easily accessible or in plain view; when available, firearms should be stored and locked in a firearm safe. - Weapons of any kind include: firearms, knives, tasers and all other things that can inflict bodily or physical harm. Pets/animals must be moved to a separate closed room or placed in a crate/cage while caregivers are in the home. (Service animals excluded). Substance Use (illegal drugs, alcohol, cigarettes) including Medical marijuana in a vaporized or inhaled form is not permitted for use by a patient or caregiver/family member while our caregivers are in the home. Taking photos or videos of our caregivers without permission is not permitted. Our clinicians will call you the night before or the morning of the appointment. Their # may come up restricted but they'll leave a VM for you. In case you have any questions or concerns in the meantime, our # is [phone], option 5 Thank you for your time and have a great day. Sarah Sam Events And Promotions Assistant documented in this encounter [facility] 02-04-2023 Note [facility] 02-03-2023 Note HNO ID: [id number] Author: Note, Interface Service: ? Author Type: ? Type: Progress Notes Filed: 02/03/2023 5:27 AM Note Text: Epic Scheduled Downtime: 02/03/2023 1:00:00 AM to 02/03/2023 1:28:00 AM [facility] 02-03-2023 Note HNO ID: [id number] Author: Note, Interface Service: ? Author Type: ? Type: Progress Notes Filed: 02/03/2023 4:58 AM Note Text: Epic Scheduled Downtime: 02/03/2023 1:00:00 AM to 02/03/2023 1:28:00 AM [facility] 01-31-2023 Note [facility] 01-28-2023 Note [facility] 01-26-2023 Note [facility] 01-25-2023 Note [facility] 01-25-2023 Note [facility] 01-24-2023 Note [facility] 01-23-2023 Note [facility] 01-22-2023 Note [facility] 01-21-2023 Note [facility] 01-20-2023 Note [facility] 01-19-2023 Note [facility] 01-19-2023 Note [facility] 01-18-2023 Note [facility] 01-18-2023 History of Past i llness Narrative Problem Noted Date Diagnosed Date Resolved Date Sepsis 01/18/2023 03/31/2023 documented as of this encounter (statuses as of 04/02/2023) [facility] History of Past illness Narrative* Problem Noted Date Diagnosed Date Resolved Date Sepsis 01/18/2023 03/31/2023 documented as of this encounter (statuses as of 04/03/2023) [facility] History of Past illness Narrative* Problem Noted Date Diagnosed Date Resolved Date Sepsis 01/18/2023 03/31/2023 documented as of this encounter (statuses as of 04/05/2023) [facility] History of Past illness Narrative* Problem Noted Date Diagnosed Date Resolved Date Sepsis 01/18/2023 03/31/2023 documented as of this encounter (statuses as of 04/16/2023) [facility] History of Past illness Narrative* Problem Noted Date Diagnosed Date Resolved Date Sepsis 01/18/2023 03/31/2023 documented as of this encounter (statuses as of 04/23/2023) [facility]09-27-2023 NoteHNO ID: [id number] Author: Tanika Banda, RN Service: Nursing Author Type: Registered Nurse Type: Nursing Progress Note Filed: 01/17/2023 8:10 PM Note Text: Report given to [facility]09-14-2023 History of Present illness Narrative* Jose Daniel Mane, DESKTOP SUPPORT CONSULTANT-CIRCULAR [employer] FUSER - 01/04/2023 3:20 PM EDT OARRS: No data recorded I have personally reviewed the OARRS report for Carolyn Parnell. I have considered the risks of abuse, dependence, addiction and diversion Is the patient prescribed a combination of a benzodiazepine and opioid? No Last Urine Drug Screen / ordered today: Yes Recent Results (from the past 8760 hour(s)) OPIATE/OPIOID/BENZO PRESCRIPTION COMPLIANCE Collection Time: 03/23/22 4:10 PM Result Value Ref Range DRUG SCREEN COMMENT URINE SEE BELOW Creatine, Urine 142.5 mg/dL Amphetamine Screen, Urine PRESUMPTIVE NEGATIVE NEGATIVE Barbiturate Screen, Urine PRESUMPTIVE NEGATIVE NEGATIVE Cannabinoid Screen, Urine PRESUMPTIVE NEGATIVE NEGATIVE Cocaine Screen, Urine PRESUMPTIVE NEGATIVE NEGATIVE PCP Screen, Urine PRESUMPTIVE NEGATIVE NEGATIVE 7-Aminoclonazepam <25 Cutoff <25 ng/mL Alpha-Hydroxyalprazolam <25 Cutoff <25 ng/mL Alpha-Hydroxymidazolam <25 Cutoff <25 ng/mL Alprazolam <25 Cutoff <25 ng/mL Chlordiazepoxide <25 Cutoff <25 ng/mL Clonazepam <25 Cutoff <25 ng/mL Diazepam <25 Cutoff <25 ng/mL Lorazepam 555 (A) Cutoff <25 ng/mL Midazolam <25 Cutoff <25 ng/mL Nordiazepam <25 Cutoff <25 ng/mL Oxazepam <25 Cutoff <25 ng/mL Temazepam <25 Cutoff <25 ng/mL Zolpidem <25 Cutoff <25 ng/mL Zolpidem Metabolite (ZCA) <25 Cutoff <25 ng/mL 6-Acetylmorphine <25 Cutoff <25 ng/mL Codeine <50 Cutoff <50 ng/mL Hydrocodone <25 Cutoff <25 ng/mL Hydromorphone <25 Cutoff <25 ng/mL Morphine Urine <50 Cutoff <50 ng/mL Norhydrocodone <25 Cutoff <25 ng/mL Noroxycodone <25 Cutoff <25 ng/mL Oxycodone <25 Cutoff <25 ng/mL Oxymorphone <25 Cutoff <25 ng/mL Tramadol <50 Cutoff <50 ng/mL O-Desmethyltramadol <50 Cutoff <50 ng/mL Fentanyl <2.5 Cutoff<2.5 ng/mL Norfentanyl <2.5 Cutoff<2.5 ng/mL METHADONE CONFIRMATION,URINE <25 Cutoff <25 ng/mL EDDP <25 Cutoff <25 ng/mL Results are as expected. Clinical rationale for not completing a Urine Drug Screen: Completed UDS on 03/2022 Controlled Substance Agreement: Date of the Last Agreement: 03/2022 Reviewed Controlled Substance Agreement including but not limited to the benefits, risks, and alternatives to treatment with a Controlled Substance medication(s). Benzodiazepines: What is the patient's goal of therapy? Less anxiety Is this being achieved with current treatment? yes RAFAELA-7: Over the last 2 weeks, how often have you been bothered by any of the following problems? Feeling nervous, anxious, or on edge: 3 Not being able to stop or control worryin Worrying too much about different things: 3 Trouble relaxin Being so restless that it is hard to sit still: 3 Becoming easily annoyed or irritable: 3 Feeling afraid as if something awful might happen: 2 RAFAELA-7 Total Score: 20 Activities of Daily Living: Is your overall impression that this patient is benefiting (symptom reduction outweighs side effects) from benzodiazepine therapy? Yes 1. Physical Functioning: Better 2. Family Relationship: Better 3. Social Relationship: Better 4. Mood: Better 5. Sleep Patterns: Better 6. Overall Function: BetterSubjective Patient ID: Isabella Parnell is a 57 y.o. female who presents for Follow-up (3 MO CSA ). Isabella comes to the office for a 3-month controlled substance office visit and to review her labs today. Had venous Dopplers with reflux ultrasound completed which show reflux in both legs right lower extremity reflux in common femoral vein and in left lower extremity more extensive reflux noted in the saphenofemoral junction. Both legs have no signs of DVTs. She has been given a prescription for compression stockings. Echocardiogram is ordered and to be completed at [facility]. 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 Scheduled to see vascular towards end of month. Using Ativan d/week for anxiety. I have personally reviewed the OARRS report. I have considered therisks of abuse, dependence, addiction and diversion. I believe that it is clinically appropriate for the patient to be prescribed this medication. Breast cancer screening: Up to date. Completed in 03/1022 Will need EGD colonoscopy through patient safety sitter in [place] @ end of the year Labs in October Review of Systems Constitutional: Negative for chills, fatigue and fever. Cardiovascular: Positive for leg swelling. Musculoskeletal: Positive for arthralgias and gait problem. Psychiatric/Behavioral: Positive for sleep disturbance. The patient is nervous/anxious. Objective BP 124/70 Pulse 109 Ht 1.702 m (5' 7) Wt 146 kg (321 lb 3.2 oz) SpO2 91% BMI 50.31 kg/m Physical Exam Vitals and nursing note reviewed. Constitutional: Appearance: Normal appearance. HENT: Head: Normocephalic. Cardiovascular: Rate and Rhythm: Normal rate and regular rhythm. Heart sounds: Normal heart sounds. Pulmonary: Effort: Pulmonary effort is normal. Breath sounds: Normal breath sounds. Musculoskeletal: Cervical back: Normal range of motion. Right lower le+ Edema present. Left lower le+ Edema present. Skin: General: Skin is warm and dry. Neurological: General: No focal deficit present. Mental Status: She is alert and oriented to person, place, and time. Psychiatric: Mood and Affect: Mood normal. Thought Content: Thought content normal. Assessment/Plan Problem List Items Addressed This Visit Anxiety and depression - Primary Peripheral edema Relevant Medications furosemide (Lasix) 40 mg tablet potassium chloride CR (Klor-Con M20) 20 mEq ER tablet Other Visit Diagnoses Edema of both lower extremities due to peripheral venous insufficiency 1. Anxiety and depression 2. Peripheral edema furosemide (Lasix) 40 mg tablet potassium chloride CR (Klor-Con M20) 20 mEq ER tablet 3. Edema of both lower extremities due to peripheral venous insufficiency [facility] [phone] Instructions* Patient Instructions* GUSTAVO Vaughan - 01/04/2023 3:20 PM EDT Increase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 without esophagitis Esophageal reflux documented in this encounter [facility] Work Phone: History of Present illness Narrative* Isabella comes to the office for a 1 month recheck on depression and anxiety. Is taking and tolerating Lexapro without problem. Changed dosing regimen to at bedtime which helps with sleep. Previously had tried taking Vistaril for breakthrough anxiety and not effective. Taking lorazepam a few times per week which helps with her heart palpitations and jittery feelings that she gets when her anxiety is worsening. * Patient here to discuss & sign CSA. * CSA signed on: 03/14/21 * I have printed this form and reviewed each line item with the patient and the patient has verbalized understanding. * Urine Drug Screen completed: . Last refill 02/14/21. REquests refill today * RAFAELA-7 Score: 17 * OD Risk Score: 440 * Patient Pain Scale: n/a * I have personally reviewed the OARRS report for this patient. I have considered the risks of abuse,dependence, addiction and diversion. I believe that it is clinically appropriate for this patient to be prescribed this medication based on the documented diagnosis. * HX of referrals/Alternatives: 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Lexapro daily, previously used Vistaril which was ineffective. [facility] Work Phone: History of Present illness Narrative* Jose Daniel Mane, VERA-MELONY - 04/17/2024 2:00 PM EST Subjective Patient ID: Isabella Parnell is a 58 y.o. female who presents for Follow-up (6 mo fu ). Isabella comes to the office for a 6-month follow-up. Is scheduled for blood work tomorrow at [facility] Mammogram proposed and encouraged to complete She has been instructed by her hospice care sales consultant to wear oxygen for 1 month before they will repeat the ultrasound of the heart. She has been advised by her hospice care sales consultant to complete an in lab sleep titration study. She is anxious and apprehensive about moving forward with this testing. Discussed with patient benefits to completing testing and treating sleep apnea. She voices understanding and states she will schedule an appointment to have her sleep study completed. Ambulatory blood pressure readings:120's/60-70's, no swelling to her lower extremities. She denies chest pain shortness of breath dizziness or syncopal episodes. Returned back to work in May full-time. Stress has been somewhat worse due to the holidays; will increase Lexapro to 20 mg daily Review of Systems Constitutional: Positive for fatigue. Respiratory: Positive for apnea. Negative for cough, shortness of breath and wheezing. Cardiovascular: Negative for chest pain and leg swelling. Gastrointestinal: Negative for abdominal pain. Neurological: Negative for dizziness, syncope, light-headedness and headaches. Objective BP 112/64 Pulse 95 Ht 1.702 m (5' 7) Wt 142 kg (313 lb) SpO2 95% BMI 49.02 kg/m Physical Exam Vitals and nursing note reviewed. Constitutional: Appearance: Normal appearance. HENT: Head: Normocephalic. Neck: Thyroid: No thyromegaly or thyroid tenderness. Cardiovascular: Rate and Rhythm: Normal rate and regular rhythm. Heart sounds: Normal heart sounds. Pulmonary: Effort: Pulmonary effort is normal. Breath sounds: Normal breath sounds. Abdominal: General: Abdomen is protuberant. Musculoskeletal: Cervical back: Normal range of motion. Right lower leg: No edema. Left lower leg: No edema. Skin: General: Skin is warm and dry. Neurological: General: No focal deficit present. Mental Status: She is alert and oriented to person, place, and time. Psychiatric: Mood and Affect: Mood normal. Thought Content: Thought content normal. Assessment/Plan Problem List Items Addressed This Visit ICD-10-CM Anxiety F41.9 Relevant Medications escitalopram (Lexapro) 20 mg tablet Other Relevant Orders DRUG SCREEN,URINE Hyperlipemia E78.5 Hypertension - Primary I10 Peripheral neuropathy G62.9 Relevant Medications gabapentin (Neurontin) 300 mg capsule Other Visit Diagnoses Codes Encounter for screening mammogram for breast cancer Z12.31 Relevant Orders BI mammo bilateral screening [facility]* Patient Instructions* GUSTAVO Vaughan - 04/17/2024 2:00 PM EST Lexapro increased to 20 mg daily Please complete your blood work tomorrow and we will notify you when those results are available for review and then we will determine when your next follow-up appointment is Recommend moving forward with in lab sleep titration study for sleep apnea [facility] Plan of care note* Visit Details Visit Type -SN ROUTINE Discipline -Assisted Problems Problem Description Start Date Status Goals Interve ntions Medication Education Disciplines: Skilled Services 02/11/2023 Active 1 goal linked to scheduled/document ed intervention 1 goal intervention scheduled/documente d in this visit Sepsis Disciplines: Skilled Services 02/11/2023 Active 1 goal linked to scheduled/document ed intervention 1 goal intervention scheduled/documente d in this visit Physician Specific Parameters Disciplines: Skilled Services 02/11/2023 Active 1 goal linked to scheduled/document ed intervention 1 goal intervention scheduled/documente d in this visit Pain Disciplines: Skilled Services 02/11/2023 Active 1 goal linked to scheduled/document ed intervention 1 goal intervention scheduled/documente d in this visit Nutrition/Hydra tion Disciplines: Skilled Services 02/11/2023 Active 1 goal linked to scheduled/document ed intervention 1 goal intervention scheduled/documente d in this visit High Risk Medications Disciplines: Skilled Services 02/11/2023 Active 1 goal linked to scheduled/document ed intervention 1 goal intervention scheduled/documente d in this visit SN Integumentary/W ounds Disciplines: SN 02/11/2023 Active 1 goal linked to scheduled/document ed intervention 2 goal interventions scheduled/documente d in this visit SN Learning Assessment Disciplines: SN 02/11/2023 Active 1 goal linked to scheduled/document ed intervention 1 goal intervention scheduled/documente d in this visit Goals Goal Associated Problem Outcome Goal Met? Visit Notes Patient/caregiver will demonstrate ability to obtain, store, identify and administer ordered medications, keep accurate medication list in home, and adhere to medication schedule Description: Patient/caregiver will demonstrate ability to obtain, store, identify and administer ordered medications, keep accurate medication list in home, and adhere to medication schedule by 04/11/23. Medication Education No Patient/caregiver will be able to identify and report symptoms of sepsis Description: Patient/caregiver will be able to identify signs/symptoms of sepsis infection and will verbalize actions to take if suspected by 04/11/23. Sepsis No Patient to maintain parameters within physician-specified ranges throughout certification period Physician Specific Parameters No Manage Pain Description: Patient/caregiver will verbalize knowledge and understanding of appropriate techniques to control pain, including pain medication and non-pharmacological techniques. Patient will verbalize or demonstrate an acceptable level of pain as evidenced by a pain score of 0/10 and improvement in ability to perform activities of daily living to be achieved by 04/11/23. Pain No Manage Nutrition/Hydration Description: Patient/caregiver will verbalize/demonstrate knowledge of prescribed diet and/or healthy nutrition to be achieved by 03/23/23. Nutrition/Hydration No Patient/caregiver will teach back high risk medication side effect and precaution education High Risk Medications No Patient/Caregiver will have improved healing and be free of signs and symptoms of complications Description: Patient/caregiver will verbalize management strategies to promote wound healing & prevent complications as evidenced by improved healing & no complications by 04/11/23. SN Integumentary/Wounds No Demonstrate understanding of education Description: Patient and/or caregiver will verbalize understanding of educational instruction provided throughout certification period. SN Learning Assessment No Interventions Intervention Associated Problem/Goal Status Variance Visit Notes Medication Education Description: Evaluate/instruct patient/caregiver on obtaining, storing, identifying and administering ordered medications as well as keeping accurate medication list in the home and adhereing to medication schedule Problem:Medication Education Goal:Patient/caregive r will demonstrate ability to obtain, store, identify and administer ordered medications, keep accurate medication list in home, and adhere to medication schedule Completed Patient instructed on importance of keeping accurate medication list in home and adhering to medication schedule. Sepsis aftercare Description: Patient recenty treated for sepsis related to Right groin abscess. Educate on signs/symptoms of recurrent infection and actions to take if suspected. Problem:Sepsis Goal:Patient/caregive r will be able to identify and report symptoms of sepsis Completed Patient instructed on signs/symptoms of recurrent infection including increase in 02 requirements, new or worsening onset of pain and decreased urine output. SPO2 Description: Notify Jose Daniel Mane CNP if pulse ox is <92% at rest. Problem:Physician Specific Parameters Goal:Patient to maintain parameters within physician-specified ranges throughout certification period Completed Instruct on pain and instruct on strategies to control pain Problem:Pain Goal:Manage Pain Completed patient instructed on techniques to control pain including Pharmacological measures and Non-Pharmacological measures; rest, distraction and breathing/relaxation. Define patient s appetite/hydration status and implement strategies to improve compliance with prescribed diet and/or healthy nutrition. Problem:Nutrition/Hyd ration Goal:Manage Nutrition/Hydration Completed instructed patient on implementing strategies to comply with healthy nutrition and adequate hydration Opioids- educated on high risk medication Problem:High Risk Medications Goal:Patient/caregive r will teach back high risk medication side effect and precaution education Completed patient educated on taking medication(s) as prescribed by provider. Do not stop medication or alter doses without speaking with your provider. Discuss medication effectiveness or side effect concerns with your provider and home care team. Only take opioids as prescribed, do not share your medications, and take proper precautions in storing and properly disposing of opioids once no longer needed. Possible side effects of opioid medication including sedation, decreased rate of breathing, and constipation. Report over sedation to prescribing provider and practice deep breathing techniques every hour while awake. Prevent constipation by increasing water and fiber intake, increasing activity as tolerated, and use stool softener(s) as prescribed. Wound Care: Perform wound care (1) Description: Wound location: Incision Pelvis Anterior;Right, Wound care: Cleanse with NS, apply Dakins soaked kerlix and pack wound, cover with DSD and ABD pad. Change daily and PRN Wound care to be completed by skilled clinician only. Measure wound/incision at least weekly. Okay to substitute comparable products from home care formulary. Problem:SN Integumentary/Wounds Goal:Patient/Caregive r will have improved healing and be free of signs and symptoms of complications Completed Completed by SN. Patient did tolerate well. Instruct patient/caregiver healing process and management measures to promote healing and avoid complications Problem:SN Integumentary/Wounds Goal:Patient/Caregive r will have improved healing and be free of signs and symptoms of complications Completed patient instructed on the following: healing process, signs and symptoms of infection and importance of good nutrition. Instruct and educate on knowledge deficits Problem:SN Learning Assessment Goal:Demonstrate understanding of education Completed patient verbalize and/or demonstrate understanding of nursing education completed today. Education methods include: verbal cues. Further education required to improve knowledge and compliance with fall prevention/home safety strategies, incision/wound care management, medication management, nutrition, oxygen safety and pain management. documented in this encounter [facility]'s home Plan of care note* Visit Details Visit Type -SN ROUTINE Discipline -Assisted Problems Problem Description Start Date Status Goals Interve ntions Medication Education Disciplines: Skilled Services 02/11/2023 Active 1 goal linked to scheduled/document ed intervention 1 goal intervention scheduled/document ed in this visit Sepsis Disciplines: Skilled Services 02/11/2023 Active 1 goal linked to scheduled/document ed intervention 1 goal intervention scheduled/document ed in this visit Physician Specific Parameters Disciplines: Skilled Services 02/11/2023 Active 1 goal linked to scheduled/document ed intervention 1 goal intervention scheduled/document ed in this visit Risk for Falls Disciplines: Skilled Services 02/11/2023 Active 1 goal linked to scheduled/document ed intervention 1 goal intervention scheduled/document ed in this visit Pain Disciplines: Skilled Services 02/11/2023 Active 1 goal linked to scheduled/document ed intervention 1 goal intervention scheduled/document ed in this visit Oxygen Disciplines: Skilled Services 02/11/2023 Active 1 goal linked to scheduled/document ed intervention 1 goal intervention scheduled/document ed in this visit Nutrition/Hydrati on Disciplines: Skilled Services 02/11/2023 Active 1 goal linked to scheduled/document ed intervention 1 goal intervention scheduled/document ed in this visit High Risk Medications Disciplines: Skilled Services 02/11/2023 Active 1 goal linked to scheduled/document ed intervention 2 goal interventions scheduled/document ed in this visit Discharge Disciplines: Skilled Services 02/11/2023 Active 1 goal linked to scheduled/document ed intervention 1 goal intervention scheduled/document ed in this visit Advance Directives Disciplines: Skilled Services 02/11/2023 Active 1 goal linked to scheduled/document ed intervention 1 goal intervention scheduled/document ed in this visit SN Respiratory Disease Disciplines: SN 02/11/2023 Active 1 goal linked to scheduled/document ed intervention 1 goal intervention scheduled/document ed in this visit SN Integumentary/Wou nds Disciplines: SN 02/11/2023 Active 1 goal linked to scheduled/document ed intervention 3 goal interventions scheduled/document ed in this visit SN Learning Assessment Disciplines: SN 02/11/2023 Active 1 goal linked to scheduled/document ed intervention 1 goal intervention scheduled/document ed in this visit Goals Goal Associated Problem Outcome Goal Met? Visit Notes Patient/caregiver will demonstrate ability to obtain, store, identify and administer ordered medications, keep accurate medication list in home, and adhere to medication schedule Description: Patient/caregiver will demonstrate ability to obtain, store, identify and administer ordered medications, keep accurate medication list in home, and adhere to medication schedule by 04/11/23. Medication Education No Patient/caregiver will be able to identify and report symptoms of sepsis Description: Patient/caregiver will be able to identify signs/symptoms of sepsis infection and will verbalize actions to take if suspected by 04/11/23. Sepsis No Patient to maintain parameters within physician-specified ranges throughout certification period Physician Specific Parameters No Manage Risk for falls Description: Patient/caregiver will verbalize knowledge of individualized fall prevention strategies by 04/11/23. Risk for Falls No Manage Pain Description: Patient/caregiver will verbalize knowledge and understanding of appropriate techniques to control pain, including pain medication and non-pharmacological techniques. Patient will verbalize or demonstrate an acceptable level of pain as evidenced by a pain score of 0/10 and improvement in ability to perform activities of daily living to be achieved by 04/11/23. Pain No Manage oxygen Description: Patient/caregiver will use oxygen safely and effectively in home by verbalizing and demonstrating oxygen safety by 04/11/23. Oxygen No Manage Nutrition/Hydration Description: Patient/caregiver will verbalize/demonstrate knowledge of prescribed diet and/or healthy nutrition to be achieved by 03/23/23. Nutrition/Hydration No Patient/caregiver will teach back high risk medication side effect and precaution education High Risk Medications No Manage discharge planning Description: Patient/caregiver will verbalize understanding of ongoing discharge plan provided related to disease management, arrangements for outpatient and/or community services, obtaining medications, supplies, and DME, as needed throughout certification period. Discharge No Patient/caregiver will make healthcare providers aware of and any changes to Advance Directives throughout certification period Advance Directives No Improved management of respiratory condition Description: Improve respiratory management as evidenced by patient/caregiver's ability to teach back strategies for improving respiratory status by 03/23/23. SN Respiratory Disease No Patient/Caregiver will have improved healing and be free of signs and symptoms of complications Description: Patient/caregiver will verbalize management strategies to promote wound healing & prevent complications as evidenced by improved healing & no complications by 04/11/23. SN Integumentary/Wounds No Demonstrate understanding of education Description: Patient and/or caregiver will verbalize understanding of educational instruction provided throughout certification period. SN Learning Assessment No Interventions Intervention Associated Problem/Goal Status Variance Visit Notes Medication Education Description: Evaluate/instruct patient/caregiver on obtaining, storing, identifying and administering ordered medications as well as keeping accurate medication list in the home and adhereing to medication schedule Problem:Medication Education Goal:Patient/caregive r will demonstrate ability to obtain, store, identify and administer ordered medications, keep accurate medication list in home, and adhere to medication schedule Completed Patient instructed on importance of keeping accurate medication list in home, adhering to medication schedule and proper storage of medications. Sepsis aftercare Description: Patient recenty treated for sepsis related to Right groin abscess. Educate on signs/symptoms of recurrent infection and actions to take if suspected. Problem:Sepsis Goal:Patient/caregive r will be able to identify and report symptoms of sepsis Completed Patient instructed on signs/symptoms of recurrent infection including fever >101, increase in 02 requirements and new or worsening onset of pain. SPO2 Description: Notify Jose Daniel Mane CNP if pulse ox is <92% at rest. Problem:Physician Specific Parameters Goal:Patient to maintain parameters within physician-specified ranges throughout certification period Completed Instruct on individual fall risk factors and strategies to prevent falls and injuries caused by falls. Problem:Risk for Falls Goal:Manage Risk for falls Completed SN: Patient instructed on Eliminating Environmental Hazards: Keep pathways clear, Keep pets out of pathways, Remove unsafe rugs, Move furniture from pathways, Keep rooms and walkways well lit, Install hand rails/grab bars, Wear supportive shoes or non-skid socks and Keep frequently used items within reach Instruct on pain and instruct on strategies to control pain Problem:Pain Goal:Manage Pain Completed patient instructed on techniques to control pain including Non-Pharmacological measures; rest, positioning/elevation and mobility/therapeutic exercise. Instruct on fire safety and safe and effective use of oxygen in the home Problem:Oxygen Goal:Manage oxygen Completed patient instructed on: oxygen safety as outlined in Home Care Patient Handbook patient demonstrate compliance with safety recommendations. Define patient s appetite/hydration status and implement strategies to improve compliance with prescribed diet and/or healthy nutrition. Problem:Nutrition/Hyd ration Goal:Manage Nutrition/Hydration Completed reinforced patient on implementing strategies to comply with prescribed diet, healthy nutrition and adequate hydration Opioids- educated on high risk medication Problem:High Risk Medications Goal:Patient/caregive r will teach back high risk medication side effect and precaution education Completed patient educated on taking medication(s) as prescribed by provider. Do not stop medication or alter doses without speaking with your provider. Discuss medication effectiveness or side effect concerns with your provider and home care team. Only take opioids as prescribed, do not share your medications, and take proper precautions in storing and properly disposing of opioids once no longer needed. Possible side effects of opioid medication including sedation, decreased rate of breathing, and constipation. Report over sedation to prescribing provider and practice deep breathing techniques every hour while awake. Prevent constipation by increasing water and fiber intake, increasing activity as tolerated, and use stool softener(s) as prescribed. Antibiotic- educated on high risk medication Problem:High Risk Medications Goal:Patient/caregive r will teach back high risk medication side effect and precaution education Completed patient educated on taking medication(s) as prescribed by provider. Do not stop medication or alter doses without speaking with your provider. Discuss medication effectiveness or side effect concerns with your provider and home care team. Take the full dispensed amount even if you start feeling better, as bacteria can become resistant to antibiotic treatment if you do not finish your prescription. Common side effects are upset stomach and diarrhea. Take your antibiotics with food unless otherwise indicated to help with indigestion. Taking an umje-meq-fknfbrs probiotic or eating yogurt with live and active cultures three times a day can help prevent antibiotic-associated diarrhea. Call your provider immediately if you develop rashes or hives as this could be a delayed allergic reaction. Seek emergency treatment if you develop severe allergic reaction symptoms such as mouth or tongue swelling. Instruct on ongoing discharge plan Problem:Discharge Goal:Manage discharge planning Completed Ongoing Discharge plan: Discharge plan discussed with patient including frequency and duration for home SN and plan for transition to: live independently at home without ongoing services. Determine patient's Advance Directive Status Description: Patient does not have advance directives. Patient/Caregiver declined Advance Directive information. Problem:Advance Directives Goal:Patient/caregive r will make healthcare providers aware of and any changes to Advance Directives throughout certification period Completed Discussed Advance Directives with Patient and/or Caregiver. Referred patient to Home Care handbook for further information on Healthcare DPOA & Living Will. Instruct on respiratory disease process and management of condition Description: Patient has following respiratory diagnosis(es): chronic respiratory failure Problem:SN Respiratory Disease Goal:Improved management of respiratory condition Completed patient assessed and reinforced on respiratory disease process, zone sheet and self monitoring & symptom reporting. Wound Care: Perform wound care (1) Description: Wound location: Incision Pelvis Anterior;Right, Wound care: Cleanse with NS, apply Dakins soaked kerlix and pack wound, cover with DSD and ABD pad. Change daily and PRN Wound care to be completed by skilled clinician only. Measure wound/incision at least weekly. Okay to substitute comparable products from home care formulary. Problem:SN Integumentary/Wounds Goal:Patient/Caregive r will have improved healing and be free of signs and symptoms of complications Completed Completed by SN. Patient did tolerate well. Instruct patient/caregiver healing process and management measures to promote healing and avoid complications Problem:SN Integumentary/Wounds Goal:Patient/Caregive r will have improved healing and be free of signs and symptoms of complications Completed patient instructed on the following: healing process, signs and symptoms of infection, importance of good nutrition and when to report symptoms. Instruct Patient/Caregiver on wound/incision care procedure as ordered by physician Problem:SN Integumentary/Wounds Goal:Patient/Caregive r will have improved healing and be free of signs and symptoms of complications Completed patient instructed on wound care as ordered by Physician. Instruct and educate on knowledge deficits Problem:SN Learning Assessment Goal:Demonstrate understanding of education Completed patient verbalize and/or demonstrate understanding of nursing education completed today. Education methods include: verbal cues and teach back. Further education required to improve knowledge and compliance with incision/wound care management. documented in this encounter [facility]'s home Plan of care note* Visit Details Visit Type -SN ROUTINE Discipline -Assisted Problems Problem Description Start Date Status Goals Interve ntions Medication Education Disciplines: Skilled Services 02/11/2023 Active 1 goal linked to scheduled/document ed intervention 1 goal intervention scheduled/document ed in this visit Sepsis Disciplines: Skilled Services 02/11/2023 Active 1 goal linked to scheduled/document ed intervention 1 goal intervention scheduled/document ed in this visit Physician Specific Parameters Disciplines: Skilled Services 02/11/2023 Active 1 goal linked to scheduled/document ed intervention 1 goal intervention scheduled/document ed in this visit Pain Disciplines: Skilled Services 02/11/2023 Active 1 goal linked to scheduled/document ed intervention 1 goal intervention scheduled/document ed in this visit Nutrition/Hydrati on Disciplines: Skilled Services 02/11/2023 Active 1 goal linked to scheduled/document ed intervention 1 goal intervention scheduled/document ed in this visit SN Respiratory Disease Disciplines: SN 02/11/2023 Active 1 goal linked to scheduled/document ed intervention 1 goal intervention scheduled/document ed in this visit SN Integumentary/Wou nds Disciplines: SN 02/11/2023 Active 1 goal linked to scheduled/document ed intervention 2 goal interventions scheduled/document ed in this visit SN Learning Assessment Disciplines: SN 02/11/2023 Active 1 goal linked to scheduled/document ed intervention 1 goal intervention scheduled/document ed in this visit Goals Goal Associated Problem Outcome Goal Met? Visit Notes Patient/caregiver will demonstrate ability to obtain, store, identify and administer ordered medications, keep accurate medication list in home, and adhere to medication schedule Description: Patient/caregiver will demonstrate ability to obtain, store, identify and administer ordered medications, keep accurate medication list in home, and adhere to medication schedule by 04/11/23. Medication Education No Patient/caregiver will be able to identify and report symptoms of sepsis Description: Patient/caregiver will be able to identify signs/symptoms of sepsis infection and will verbalize actions to take if suspected by 04/11/23. Sepsis No Patient to maintain parameters within physician-specified ranges throughout certification period Physician Specific Parameters No Manage Pain Description: Patient/caregiver will verbalize knowledge and understanding of appropriate techniques to control pain, including pain medication and non-pharmacological techniques. Patient will verbalize or demonstrate an acceptable level of pain as evidenced by a pain score of 0/10 and improvement in ability to perform activities of daily living to be achieved by 04/11/23. Pain No Manage Nutrition/Hydration Description: Patient/caregiver will verbalize/demonstrate knowledge of prescribed diet and/or healthy nutrition to be achieved by 03/23/23. Nutrition/Hydration No Improved management of respiratory condition Description: Improve respiratory management as evidenced by patient/caregiver's ability to teach back strategies for improving respiratory status by 03/23/23. SN Respiratory Disease No Patient/Caregiver will have improved healing and be free of signs and symptoms of complications Description: Patient/caregiver will verbalize management strategies to promote wound healing & prevent complications as evidenced by improved healing & no complications by 04/11/23. SN Integumentary/Wounds No Demonstrate understanding of education Description: Patient and/or caregiver will verbalize understanding of educational instruction provided throughout certification period. SN Learning Assessment No Interventions Intervention Associated Problem/Goal Status Variance Visit Notes Medication Education Description: Evaluate/instruct patient/caregiver on obtaining, storing, identifying and administering ordered medications as well as keeping accurate medication list in the home and adhereing to medication schedule Problem:Medication Education Goal:Patient/caregive r will demonstrate ability to obtain, store, identify and administer ordered medications, keep accurate medication list in home, and adhere to medication schedule Completed Patient instructed on importance of keeping accurate medication list in home and adhering to medication schedule. Sepsis aftercare Description: Patient recenty treated for sepsis related to Right groin abscess. Educate on signs/symptoms of recurrent infection and actions to take if suspected. Problem:Sepsis Goal:Patient/caregive r will be able to identify and report symptoms of sepsis Completed Patient instructed on signs/symptoms of recurrent infection including fever >101, tachycardia >90 or higher per their baseline, increase in 02 requirements, new or worsening onset of pain and new onset change in mentation status. SPO2 Description: Notify Jose Daniel Mane CNP if pulse ox is <92% at rest. Problem:Physician Specific Parameters Goal:Patient to maintain parameters within physician-specified ranges throughout certification period Completed Instruct on pain and instruct on strategies to control pain Problem:Pain Goal:Manage Pain Completed patient instructed on techniques to control pain including Pharmacological measures and Non-Pharmacological measures; rest, distraction and breathing/relaxation. Define patient s appetite/hydration status and implement strategies to improve compliance with prescribed diet and/or healthy nutrition. Problem:Nutrition/Hyd ration Goal:Manage Nutrition/Hydration Completed instructed patient on implementing strategies to comply with healthy nutrition and adequate hydration Instruct on respiratory disease process and management of condition Description: Patient has following respiratory diagnosis(es): chronic respiratory failure Problem:SN Respiratory Disease Goal:Improved management of respiratory condition Completed patient assessed and reinforced on breathing management techniques: pursed lip breathing and diaphragmatic breathing and anxiety management. Wound Care: Perform wound care (1) Description: Wound location: Incision Pelvis Anterior;Right, Wound care: Cleanse with NS, apply Dakins soaked kerlix and pack wound, cover with DSD and ABD pad. Change daily and PRN Wound care to be completed by skilled clinician only. Measure wound/incision at least weekly. Okay to substitute comparable products from home care formulary. Problem:SN Integumentary/Wounds Goal:Patient/Caregive r will have improved healing and be free of signs and symptoms of complications Completed Completed by SN. Patient did tolerate well. Instruct patient/caregiver healing process and management measures to promote healing and avoid complications Problem:SN Integumentary/Wounds Goal:Patient/Caregive r will have improved healing and be free of signs and symptoms of complications Completed patient instructed on the following: healing process, signs and symptoms of infection and importance of good nutrition. Instruct and educate on knowledge deficits Problem:SN Learning Assessment Goal:Demonstrate understanding of education Completed patient verbalize and/or demonstrate understanding of nursing education completed today. Education methods include: verbal cues. Further education required to improve knowledge and compliance with incision/wound care management, medication management, nutrition and oxygen safety. documented in this encounter [facility]'s home Plan of care note* Visit Details Visit Type -SN ROUTINE Discipline -Assisted Problems Problem Description Start Date Status Goals Interve ntions Medication Education Disciplines: Skilled Services 02/11/2023 Active 1 goal linked to scheduled/document ed intervention 1 goal intervention scheduled/document ed in this visit Sepsis Disciplines: Skilled Services 02/11/2023 Active 1 goal linked to scheduled/document ed intervention 1 goal intervention scheduled/document ed in this visit Physician Specific Parameters Disciplines: Skilled Services 02/11/2023 Active 1 goal linked to scheduled/document ed intervention 1 goal intervention scheduled/document ed in this visit Risk for Falls Disciplines: Skilled Services 02/11/2023 Active 1 goal linked to scheduled/document ed intervention 1 goal intervention scheduled/document ed in this visit Pain Disciplines: Skilled Services 02/11/2023 Active 1 goal linked to scheduled/document ed intervention 1 goal intervention scheduled/document ed in this visit Oxygen Disciplines: Skilled Services 02/11/2023 Active 1 goal linked to scheduled/document ed intervention 1 goal intervention scheduled/document ed in this visit Nutrition/Hydrati on Disciplines: Skilled Services 02/11/2023 Active 1 goal linked to scheduled/document ed intervention 1 goal intervention scheduled/document ed in this visit High Risk Medications Disciplines: Skilled Services 02/11/2023 Active 1 goal linked to scheduled/document ed intervention 2 goal interventions scheduled/document ed in this visit Discharge Disciplines: Skilled Services 02/11/2023 Active 1 goal linked to scheduled/document ed intervention 1 goal intervention scheduled/document ed in this visit SN Respiratory Disease Disciplines: SN 02/11/2023 Active 1 goal linked to scheduled/document ed intervention 1 goal intervention scheduled/document ed in this visit SN Integumentary/Wou nds Disciplines: SN 02/11/2023 Active 1 goal linked to scheduled/document ed intervention 3 goal interventions scheduled/document ed in this visit SN Learning Assessment Disciplines: SN 02/11/2023 Active 1 goal linked to scheduled/document ed intervention 1 goal intervention scheduled/document ed in this visit SN Edema Disciplines: SN 02/11/2023 Active 1 goal linked to scheduled/document ed intervention 1 goal intervention scheduled/document ed in this visit Goals Goal Associated Problem Outcome Goal Met? Visit Notes Patient/caregiver will demonstrate ability to obtain, store, identify and administer ordered medications, keep accurate medication list in home, and adhere to medication schedule Description: Patient/caregiver will demonstrate ability to obtain, store, identify and administer ordered medications, keep accurate medication list in home, and adhere to medication schedule by 04/11/23. Medication Education No Patient/caregiver will be able to identify and report symptoms of sepsis Description: Patient/caregiver will be able to identify signs/symptoms of sepsis infection and will verbalize actions to take if suspected by 04/11/23. Sepsis No Patient to maintain parameters within physician-specified ranges throughout certification period Physician Specific Parameters No Manage Risk for falls Description: Patient/caregiver will verbalize knowledge of individualized fall prevention strategies by 04/11/23. Risk for Falls No Manage Pain Description: Patient/caregiver will verbalize knowledge and understanding of appropriate techniques to control pain, including pain medication and non-pharmacological techniques. Patient will verbalize or demonstrate an acceptable level of pain as evidenced by a pain score of 0/10 and improvement in ability to perform activities of daily living to be achieved by 04/11/23. Pain No Manage oxygen Description: Patient/caregiver will use oxygen safely and effectively in home by verbalizing and demonstrating oxygen safety by 04/11/23. Oxygen No Manage Nutrition/Hydration Description: Patient/caregiver will verbalize/demonstrate knowledge of prescribed diet and/or healthy nutrition to be achieved by 03/23/23. Nutrition/Hydration No Patient/caregiver will teach back high risk medication side effect and precaution education High Risk Medications No Manage discharge planning Description: Patient/caregiver will verbalize understanding of ongoing discharge plan provided related to disease management, arrangements for outpatient and/or community services, obtaining medications, supplies, and DME, as needed throughout certification period. Discharge No Improved management of respiratory condition Description: Improve respiratory management as evidenced by patient/caregiver's ability to teach back strategies for improving respiratory status by 03/23/23. SN Respiratory Disease No Patient/Caregiver will have improved healing and be free of signs and symptoms of complications Description: Patient/caregiver will verbalize management strategies to promote wound healing & prevent complications as evidenced by improved healing & no complications by 04/11/23. SN Integumentary/Wounds No Demonstrate understanding of education Description: Patient and/or caregiver will verbalize understanding of educational instruction provided throughout certification period. SN Learning Assessment No Patient will have improved edema management Description: Patient/caregiver will demonstrate an understanding of edema management strategies as evidenced by resolution or stabilization of edema by 03/23/23. SN Edema No Interventions Intervention Associated Problem/Goal Status Variance Visit Notes Medication Education Description: Evaluate/instruct patient/caregiver on obtaining, storing, identifying and administering ordered medications as well as keeping accurate medication list in the home and adhereing to medication schedule Problem:Medication Education Goal:Patient/caregive r will demonstrate ability to obtain, store, identify and administer ordered medications, keep accurate medication list in home, and adhere to medication schedule Completed Patient and Caregiver instructed on importance of keeping accurate medication list in home, adhering to medication schedule and Medication, route, dose, frequency, purpose, and side effects of all medications. Sepsis aftercare Description: Patient recenty treated for sepsis related to Right groin abscess. Educate on signs/symptoms of recurrent infection and actions to take if suspected. Problem:Sepsis Goal:Patient/caregive r will be able to identify and report symptoms of sepsis Completed Patient instructed on signs/symptoms of recurrent infection including fever >101. SPO2 Description: Notify Jose Daniel Navneet TY if pulse ox is <92% at rest. Problem:Physician Specific Parameters Goal:Patient to maintain parameters within physician-specified ranges throughout certification period Completed Instruct on individual fall risk factors and strategies to prevent falls and injuries caused by falls. Problem:Risk for Falls Goal:Manage Risk for falls Completed SN: Patient and Caregiver instructed on Eliminating Environmental Hazards: Keep pathways clear, Keep pets out of pathways, Remove unsafe rugs, Move furniture from pathways and Keep rooms and walkways well lit Managing Cognitive Impairment/Depression : Recommended use of visual cues/reminders for safety Instruct on pain and instruct on strategies to control pain Problem:Pain Goal:Manage Pain Completed pt denies c/o pain Instruct on fire safety and safe and effective use of oxygen in the home Problem:Oxygen Goal:Manage oxygen Completed patient instructed on: findings of safety risk assessment, causes of fires, firerisks for neighboring residences and buildings, precautions that can prevent fire-related injuries and oxygen safety as outlined in Home Care Patient Handbook patient demonstrate compliance with safety recommendations. Define patient s appetite/hydration status and implement strategies to improve compliance with prescribed diet and/or healthy nutrition. Problem:Nutrition/Hyd ration Goal:Manage Nutrition/Hydration Completed instructed patient on implementing strategies to comply with prescribed diet, healthy nutrition and adequate hydration Opioids- educated on high risk medication Problem:High Risk Medications Goal:Patient/caregive r will teach back high risk medication side effect and precaution education Completed patient educated on taking medication(s) as prescribed by provider. Do not stop medication or alter doses without speaking with your provider. Discuss medication effectiveness or side effect concerns with your provider and home care team. Only take opioids as prescribed, do not share your medications, and take proper precautions in storing and properly disposing of opioids once no longer needed. Possible side effects of opioid medication including sedation, decreased rate of breathing, and constipation. Report over sedation to prescribing provider and practice deep breathing techniques every hour while awake. Prevent constipation by increasing water and fiber intake, increasing activity as tolerated, and use stool softener(s) as prescribed. Antibiotic- educated on high risk medication Problem:High Risk Medications Goal:Patient/caregive r will teach back high risk medication side effect and precaution education Completed patient educated on taking medication(s) as prescribed by provider. Do not stop medication or alter doses without speaking with your provider. Discuss medication effectiveness or side effect concerns with your provider and home care team. Take the full dispensed amount even if you start feeling better, as bacteria can become resistant to antibiotic treatment if you do not finish your prescription. Common side effects are upset stomach and diarrhea. Take your antibiotics with food unless otherwise indicated to help with indigestion. Taking an [id number]-[id number] probiotic or eating yogurt with live and active cultures three times a day can help prevent antibiotic-associated diarrhea. Call your provider immediately if you develop rashes or hives as this could be a delayed allergic reaction. Seek emergency treatment if you develop severe allergic reaction symptoms such as mouth or tongue swelling. Instruct on ongoing discharge plan Problem:Discharge Goal:Manage discharge planning Completed Ongoing Discharge plan: Discharge plan discussed with patient including frequency and duration for home SN and plan for transition to: live independently at home without ongoing services. Instruct on respiratory disease process and management of condition Description: Patient has following respiratory diagnosis(es): chronic respiratory failure Problem:SN Respiratory Disease Goal:Improved management of respiratory condition Completed patient assessed and instructed on respiratory disease process. Wound Care: Perform wound care (1) Description: Wound location: Incision Pelvis Anterior;Right, Wound care: Cleanse with NS, apply Dakins soaked kerlix and pack wound, cover with DSD and ABD pad. Change daily and PRN Wound care to be completed by skilled clinician only. Measure wound/incision at least weekly. Okay to substitute comparable products from home care formulary. Problem:SN Integumentary/Wounds Goal:Patient/Caregive r will have improved healing and be free of signs and symptoms of complications Completed Completed by SN. Patient did tolerate well. Instruct patient/caregiver healing process and management measures to promote healing and avoid complications Problem:SN Integumentary/Wounds Goal:Patient/Caregive r will have improved healing and be free of signs and symptoms of complications Completed patient instructed on the following: healing process, signs and symptoms of infection, importance of good nutrition, importance of managing blood sugars, smoking cessation and when to report symptoms. Instruct Patient/Caregiver on wound/incision care procedure as ordered by physician Problem:SN Integumentary/Wounds Goal:Patient/Caregive r will have improved healing and be free of signs and symptoms of complications Completed patient instructed on wound care as ordered by Physician. Instruct and educate on knowledge deficits Problem:SN Learning Assessment Goal:Demonstrate understanding of education Completed patient verbalize and/or demonstrate understanding of nursing education completed today. Education methods include: verbal cues and teach back. Further education required to improve knowledge and compliance with fall prevention/home safety strategies, incision/wound care management, integumentary care management, medication management, nutrition, oxygen safety and pain management. Assess and instruct on measures to reduce edema Problem:SN Edema Goal:Patient will have improved edema management Completed none noted documented in this encounter [facility]'s home Plan of care note* Visit Details Visit Type -PT EVAL Discipline -Physical Therapy Problems Problem Description Start Date Status Goals Interve ntions PT Referral Disciplines: Skilled Services 02/11/2023 Resolved on 02/17/2023 1 goal linked to scheduled/documen rashawn intervention 1 goal intervention scheduled/documen rashawn in this visit Physician Specific Parameters Disciplines: Skilled Services 02/11/2023 Active 1 goal linked to scheduled/documen rashawn intervention 1 goal intervention scheduled/documen rashawn in this visit Risk for Falls Disciplines: Skilled Services 02/11/2023 Active 1 goal linked to scheduled/documen rashawn intervention 1 goal intervention scheduled/documen rashawn in this visit Discharge Disciplines: Skilled Services 02/11/2023 Active 1 goal linked to scheduled/documen rashawn intervention 1 goal intervention scheduled/documen rashawn in this visit PT Impaired muscle performance and/or ROM Disciplines: PT 02/17/2023 Resolved on 02/17/2023 1 goal linked to scheduled/documen rashawn intervention 1 goal intervention scheduled/documen rashawn in this visit PT Impaired mobility Disciplines: PT 02/17/2023 Resolved on 02/17/2023 2 goals linked to scheduled/documen rashawn interventions PT Impaired gait Disciplines: PT 02/17/2023 Resolved on 02/17/2023 1 goal linked to scheduled/documen rashawn intervention PT Learning Assessment Disciplines: PT 02/17/2023 Resolved on 02/17/2023 1 goal linked to scheduled/documen rashawn intervention 1 goal intervention scheduled/documen rashawn in this visit PT Cardiovascular Disease Disciplines: PT 02/17/2023 Resolved on 02/17/2023 1 goal linked to scheduled/documen rashawn intervention PT Pulmonary Disease Disciplines: PT 02/17/2023 Resolved on 02/17/2023 1 goal linked to scheduled/documen rashawn intervention 1 goal intervention scheduled/documen rashawn in this visit Goals Goal Associated Problem Outcome Goal Met? Visit Notes Patient will be referred to additional discipline as needed PT Referral Completed Yes Patient to maintain parameters within physician-specified ranges throughout certification period Physician Specific Parameters No Manage Risk for falls Description: Patient/caregiver will verbalize knowledge of individualized fall prevention strategies by 04/11/23. Risk for Falls No Manage discharge planning Description: Patient/caregiver will verbalize understanding of ongoing discharge plan provided related to disease management, arrangements for outpatient and/or community services, obtaining medications, supplies, and DME, as needed throughout certification period. Discharge No Improved Muscle Performance and/or ROM Description: STG: Patient and/or caregiver will verbalize/demonstrate independence with home exercise program, to improve functional mobility, to be achieved by 02/17/23. PT Impaired muscle performance and/or ROM Completed Yes goal met Improved Transfers Description: STG: Patient will demonstrate safe transfers to/from bed and chair independently, to be achieved by 02/17/23. PT Impaired mobility Completed Yes goal met Improved Bed Mobility Description: STG: Patient will demonstrate improved supine <> sit independently to be achieved by 02/17/23. PT Impaired mobility Completed Yes goal met Improved Gait Description: STG: Patient will demonstrate improved gait ability as evidenced by ambulating throughout her living quarterrs with front wheeled walker independently with AD, to be achieved by 02/17/23. PT Impaired gait Completed Yes goal met Demonstrate understanding of education Description: Patient and/or caregiver will understand educational instruction to be achieved by 02/17/23. PT Learning Assessment Completed Yes goal met Manage Secondary Cardiovascular disease Description: Improve patient and/or caregiver understanding of secondary cardiovascular disease management as evidenced by patient and/or caregiver able to verbalize, demonstrate, and teach back instruction, to be achieved by 02/17/23. PT Cardiovascular Disease Completed Yes Manage Secondary Pulmonary Disease Description: Improve patient and/or caregiver understanding of secondary pulmonary disease management as evidenced by patient and/or caregiver able to verbalize, demonstrate, and teach back instruction, to be achieved by 02/17/23. PT Pulmonary Disease Completed Yes goal met Interventions Intervention Associated Problem/Goal Status Variance Visit Notes PT evaluation and treatment Description: Evaluate and treat for the assessment of functional deficits and establishment of appropriate interventions and education, including recommendations for functional mobility training, balance training for fall reduction, and strengthening. Problem:PT Referral Goal:Patient will be referred to additional discipline as needed Completed SPO2 Description: Notify Jose Daniel Navneet TY if pulse ox is <92% at rest. Problem:Physician Specific Parameters Goal:Patient to maintain parameters within physician-specified ranges throughout certification period Completed Instruct on individual fall risk factors and strategies to prevent falls and injuries caused by falls. Problem:Risk for Falls Goal:Manage Risk for falls Completed PT: Patient instructed on Eliminating Environmental Hazards: Keep pathways clear, Keep pets out of pathways and be aware of oxygen tubing when walking. Instruct on ongoing discharge plan Problem:Discharge Goal:Manage discharge planning Completed Ongoing Discharge plan: Discharge plan discussed with patient including frequency and duration for home PT; patient agreeable to no further PT after today's evaluation. Physical Therapy Therapeutic Exercises Problem:PT Impaired muscle performance and/or ROM Goal:Improved Muscle Performance and/or ROM Completed patient instructed on strengthening exercises including 1 hand on counter performing 10 heel raises. 2 hands on counter performing L and R hip abduction, L and R hip extension, and marching in place with verbal, tactile, visual and written cues for correct form. patient instructed to perform home exercise program twice a day which included the above listed exercises. Instruct and educate on knowledge deficits Problem:PT Learning Assessment Goal:Demonstrate understanding of education Completed patient verbalize and/or demonstrate understanding of physical therapy education including fall prevention strategies and home exercise program. Education methods include: verbal cues, tactile cues, written instructions, visual cues and teach back. Instruct on signs, symptoms, and management of secondary pulmonary disease Problem:PT Pulmonary Disease Goal:Manage Secondary Pulmonary Disease Completed patient instructed on diagnosis of respiratory failure and use oxygen as prescribed. [facility] Visit Details Visit Type -SN ROUTINE Discipline -Assisted Problems Problem Description Start Date Status Goals Interve ntions Sepsis Disciplines: Skilled Services 02/11/2023 Active 1 goal linked to scheduled/document ed intervention 1 goal intervention scheduled/document ed in this visit Physician Specific Parameters Disciplines: Skilled Services 02/11/2023 Active 1 goal linked to scheduled/document ed intervention 1 goal intervention scheduled/document ed in this visit Risk for Falls Disciplines: Skilled Services 02/11/2023 Active 1 goal linked to scheduled/document ed intervention 1 goal intervention scheduled/document ed in this visit Pain Disciplines: Skilled Services 02/11/2023 Active 1 goal linked to scheduled/document ed intervention 1 goal intervention scheduled/document ed in this visit Oxygen Disciplines: Skilled Services 02/11/2023 Active 1 goal linked to scheduled/document ed intervention 1 goal intervention scheduled/document ed in this visit High Risk Medications Disciplines: Skilled Services 02/11/2023 Active 1 goal linked to scheduled/document ed intervention 2 goal interventions scheduled/document ed in this visit Discharge Disciplines: Skilled Services 02/11/2023 Active 1 goal linked to scheduled/document ed intervention 1 goal intervention scheduled/document ed in this visit SN Respiratory Disease Disciplines: SN 02/11/2023 Active 1 goal linked to scheduled/document ed intervention 1 goal intervention scheduled/document ed in this visit SN Integumentary/Wou nds Disciplines: SN 02/11/2023 Active 1 goal linked to scheduled/document ed intervention 2 goal interventions scheduled/document ed in this visit SN Learning Assessment Disciplines: SN 02/11/2023 Active 1 goal linked to scheduled/document ed intervention 1 goal intervention scheduled/document ed in this visit SN Edema Disciplines: SN 02/11/2023 Active 1 goal linked to scheduled/document ed intervention 1 goal intervention scheduled/document ed in this visit Goals Goal Associated Problem Outcome Goal Met? Visit Notes Patient/caregiver will be able to identify and report symptoms of sepsis Description: Patient/caregiver will be able to identify signs/symptoms of sepsis infection and will verbalize actions to take if suspected by 04/11/23. Sepsis No Patient to maintain parameters within physician-specified ranges throughout certification period Physician Specific Parameters No Manage Risk for falls Description: Patient/caregiver will verbalize knowledge of individualized fall prevention strategies by 04/11/23. Risk for Falls No Manage Pain Description: Patient/caregiver will verbalize knowledge and understanding of appropriate techniques to control pain, including pain medication and non-pharmacological techniques. Patient will verbalize or demonstrate an acceptable level of pain as evidenced by a pain score of 0/10 and improvement in ability to perform activities of daily living to be achieved by 04/11/23. Pain No Manage oxygen Description: Patient/caregiver will use oxygen safely and effectively in home by verbalizing and demonstrating oxygen safety by 04/11/23. Oxygen No Patient/caregiver will teach back high risk medication side effect and precaution education High Risk Medications No Manage discharge planning Description: Patient/caregiver will verbalize understanding of ongoing discharge plan provided related to disease management, arrangements for outpatient and/or community services, obtaining medications, supplies, and DME, as needed throughout certification period. Discharge No Improved management of respiratory condition Description: Improve respiratory management as evidenced by patient/caregiver's ability to teach back strategies for improving respiratory status by 03/23/23. SN Respiratory Disease No Patient/Caregiver will have improved healing and be free of signs and symptoms of complications Description: Patient/caregiver will verbalize management strategies to promote wound healing & prevent complications as evidenced by improved healing & no complications by 04/11/23. SN Integumentary/Wounds No Demonstrate understanding of education Description: Patient and/or caregiver will verbalize understanding of educational instruction provided throughout certification period. SN Learning Assessment No Patient will have improved edema management Description: Patient/caregiver will demonstrate an understanding of edema management strategies as evidenced by resolution or stabilization of edema by 03/23/23. SN Edema No Interventions Intervention Associated Problem/Goal Status Variance Visit Notes Sepsis aftercare Description: Patient recenty treated for sepsis related to Right groin abscess. Educate on signs/symptoms of recurrent infection and actions to take if suspected. Problem:Sepsis Goal:Patient/caregi maria c will be able to identify and report symptoms of sepsis Completed Patient instructed on signs/symptoms of recurrent infection including fever >101, hypothermia <96.8, tachycardia >90 or higher per their baseline, SBP <90mmHg or 40mmHg change in BP from baseline and decreased pulse ox <92% with increased shortness of breath. SPO2 Description: Notify Jose Daniel Mane CNP if pulse ox is <92% at rest. Problem:Physician Specific Parameters Goal:Patient to maintain parameters within physician-specified ranges throughout certification period Completed Instruct on individual fall risk factors and strategies to prevent falls and injuries caused by falls. Problem:Risk for Falls Goal:Manage Risk for falls Completed SN: Patient instructed on Managing Pain: Recommended pain medication schedule and management of side effects to minimize fall risk Safety precautions for orthostatic hypotension Instruct on pain and instruct on strategies to control pain Problem:Pain Goal:Manage Pain Completed patient instructed on techniques to control pain including Pharmacological measures. Instruct on fire safety and safe and effective use of oxygen in the home Problem:Oxygen Goal:Manage oxygen Completed patient instructed on: oxygen safety as outlined in Home Care Patient Handbook patient demonstrate compliance with safety recommendations. Opioids- educated on high risk medication Problem:High Risk Medications Goal:Patient/caregi maria c will teach back high risk medication side effect and precaution education Other (specify reason) pt no longer taking Antibiotic- educated on high risk medication Problem:High Risk Medications Goal:Patient/bentley lombardi will teach back high risk medication side effect and precaution education Other (specify reason) no longer taking Instruct on ongoing discharge plan Problem:Discharge Goal:Manage discharge planning Completed Ongoing Discharge plan: Discharge plan discussed with patient including frequency and duration for home SN and plan for transition to: live independently at home without ongoing services. Instruct on respiratory disease process and management of condition Description: Patient has following respiratory diagnosis(es): chronic respiratory failure Problem:SN Respiratory Disease Goal:Improved management of respiratory condition Completed patient assessed and reinforced on respiratory disease process, zone sheet and self monitoring & symptom reporting. Wound Care: Perform wound care (1) Description: Wound location: Incision Pelvis Anterior;Right, Wound care: Cleanse with NS, apply Dakins soaked kerlix and pack wound, cover with DSD and ABD pad. Change daily and PRN Wound care to be completed by skilled clinician only. Measure wound/incision at least weekly. Okay to substitute comparable products from home care formulary. Problem:SN Integumentary/Wound s Goal:Patient/Bentley lombardi will have improved healing and be free of signs and symptoms of complications Completed Completed by SN. Patient did tolerate well. Instruct patient/caregiver healing process and management measures to promote healing and avoid complications Problem:SN Integumentary/Wound s Goal:Patient/Bentley lombardi will have improved healing and be free of signs and symptoms of complications Completed patient instructed on the following: healing process, signs and symptoms of infection and importance of good nutrition. Instruct and educate on knowledge deficits Problem:SN Learning Assessment Goal:Demonstrate understanding of education Completed patient verbalize and/or demonstrate understanding of nursing education completed today. Education methods include: verbal cues and tactile cues. Further education required to improve knowledge and compliance with fall prevention/home safety strategies, incision/wound care management, integumentary care management, medication management, oxygen safety and pain management. Assess and instruct on measures to reduce edema Problem:SN Edema Goal:Patient will have improved edema management Completed patient instructed on elevation and compression. [facility] Visit Details Visit Type -OT EVAL Discipline -Occupational Therapy Problems Problem Description Start Date Status Goals Interve ntions OT Referral Disciplines: Skilled Services 02/11/2023 Resolved on 02/16/2023 1 goal linked to scheduled/documen rashawn intervention 1 goal intervention scheduled/document ed in this visit Physician Specific Parameters Disciplines: Skilled Services 02/11/2023 Active 1 goal linked to scheduled/documen rashawn intervention 1 goal intervention scheduled/document ed in this visit Pain Disciplines: Skilled Services 02/11/2023 Active 1 goal linked to scheduled/documen rashawn intervention 1 goal intervention scheduled/document ed in this visit OT Learning Assessment Disciplines: OT 02/16/2023 Resolved on 02/16/2023 1 goal linked to scheduled/documen rashawn intervention 1 goal intervention scheduled/document ed in this visit OT Functional Transfers Disciplines: OT 02/16/2023 Resolved on 02/16/2023 1 goal linked to scheduled/documen rashawn intervention 1 goal intervention scheduled/document ed in this visit Goals Goal Associated Problem Outcome Goal Met? Visit Notes Patient will be referred to additional discipline as needed OT Referral Completed Yes OT eval completed Patient to maintain parameters within physician-specified ranges throughout certification period Physician Specific Parameters No Manage Pain Description: Patient/caregiver will verbalize knowledge and understanding of appropriate techniques to control pain, including pain medication and non-pharmacological techniques. Patient will verbalize or demonstrate an acceptable level of pain as evidenced by a pain score of 0/10 and improvement in ability to perform activities of daily living to be achieved by 04/11/23. Pain No Demonstrate understanding of education Description: Patient and/or caregiver will understand educational instruction to be achieved by 02/16/23. OT Learning Assessment Completed Yes goal met Improved Functional Transfers Description: patient will demonstrate safe transfers to/from shower/tub with independent assistance and no verbal cues with use of DME to be achieved by 02/16/23. OT Functional Transfers Completed Yes goal met Interventions Intervention Associated Problem/Goal Status Variance Visit Notes OT evaluation and treatment Description: Evaluate and treat for the assessment of functional deficits and establishment of appropriate interventions and education to address: I/ADL training, functional transfers, DME/adaptive equipment recommendations, safety awareness, energy conservation and home safety and falls prevention recommendations. Problem:OT Referral Goal:Patient will be referred to additional discipline as needed Completed SPO2 Description: Notify Jose Daniel Mane CNP if pulse ox is <92% at rest. Problem:Physician Specific Parameters Goal:Patient to maintain parameters within physician-specified ranges throughout certification period Completed Instruct on pain and instruct on strategies to control pain Problem:Pain Goal:Manage Pain Completed patient instructed on techniques to control pain including Pharmacological measures and Non-Pharmacological measures; rest and positioning/elevation. Instruct and educate on knowledge deficits Problem:OT Learning Assessment Goal:Demonstrate understanding of education Completed Education methods include: verbal cues. Patient/Caregiver require further education to improve knowledge and compliance with fall prevention strategies, oxygen safety, pain management, home safety and functional transfers. Transfer Training Problem:OT Functional Transfers Goal:Improved Functional Transfers Completed Instruct patient on safe transfers and proper techniques including adjustment of bench to appropriate height to perform to and from shower/tub with indep to transfer bench documented in this encounter [facility]'s home Plan of care note* Visit Details Visit Type -SN ROUTINE Discipline -Assisted Problems Problem Description Start Date Status Goals Interve ntions Medication Education Disciplines: Skilled Services 02/11/2023 Active 1 goal linked to scheduled/document ed intervention 1 goal intervention scheduled/documente d in this visit Physician Specific Parameters Disciplines: Skilled Services 02/11/2023 Active 1 goal linked to scheduled/document ed intervention 1 goal intervention scheduled/documente d in this visit Risk for Falls Disciplines: Skilled Services 02/11/2023 Active 1 goal linked to scheduled/document ed intervention 1 goal intervention scheduled/documente d in this visit Discharge Disciplines: Skilled Services 02/11/2023 Active 1 goal linked to scheduled/document ed intervention 1 goal intervention scheduled/documente d in this visit SN Integumentary/W ounds Disciplines: SN 02/11/2023 Active 1 goal linked to scheduled/document ed intervention 1 goal intervention scheduled/documente d in this visit SN Learning Assessment Disciplines: SN 02/11/2023 Active 1 goal linked to scheduled/document ed intervention 1 goal intervention scheduled/documente d in this visit Goals Goal Associated Problem Outcome Goal Met? Visit Notes Patient/caregiver will demonstrate ability to obtain, store, identify and administer ordered medications, keep accurate medication list in home, and adhere to medication schedule Description: Patient/caregiver will demonstrate ability to obtain, store, identify and administer ordered medications, keep accurate medication list in home, and adhere to medication schedule by 04/11/23. Medication Education No Patient to maintain parameters within physician-specified ranges throughout certification period Physician Specific Parameters No Manage Risk for falls Description: Patient/caregiver will verbalize knowledge of individualized fall prevention strategies by 04/11/23. Risk for Falls No Manage discharge planning Description: Patient/caregiver will verbalize understanding of ongoing discharge plan provided related to disease management, arrangements for outpatient and/or community services, obtaining medications, supplies, and DME, as needed throughout certification period. Discharge No Patient/Caregiver will have improved healing and be free of signs and symptoms of complications Description: Patient/caregiver will verbalize management strategies to promote wound healing & prevent complications as evidenced by improved healing & no complications by 04/11/23. SN Integumentary/Wounds No Demonstrate understanding of education Description: Patient and/or caregiver will verbalize understanding of educational instruction provided throughout certification period. SN Learning Assessment No Interventions Intervention Associated Problem/Goal Status Variance Visit Notes Medication Education Description: Evaluate/instruct patient/caregiver on obtaining, storing, identifying and administering ordered medications as well as keeping accurate medication list in the home and adhereing to medication schedule Problem:Medication Education Goal:Patient/caregive r will demonstrate ability to obtain, store, identify and administer ordered medications, keep accurate medication list in home, and adhere to medication schedule Completed Patient instructed on importance of keeping accurate medication list in home, adhering to medication schedule, proper storage of medications, Medication, route, dose, frequency, purpose, and side effects of medications, disposing of old and out of date medications, how to order refills, med cyber policy and strategy planner set up and med diary and reminders. SPO2 Description: Notify Jose Daniel Mane CNP if pulse ox is <92% at rest. Problem:Physician Specific Parameters Goal:Patient to maintain parameters within physician-specified ranges throughout certification period Completed Instruct on individual fall risk factors and strategies to prevent falls and injuries caused by falls. Problem:Risk for Falls Goal:Manage Risk for falls Completed SN: Patient instructed on Managing Impaired Functional Mobility: Use assistive device(s): standard walker Instruct on ongoing discharge plan Problem:Discharge Goal:Manage discharge planning Completed Ongoing Discharge plan: Discharge plan discussed with patient including frequency and duration for home SN and plan for transition to: live independently at home without ongoing services. Wound Care: Perform wound care (1) Description: Wound location: Incision Pelvis Anterior;Right, Wound care: Cleanse with NS, apply Dakins soaked kerlix and pack wound, cover with DSD and ABD pad. Change daily and PRN Wound care to be completed by skilled clinician only. Measure wound/incision at least weekly. Okay to substitute comparable products from home care formulary. Problem:SN Integumentary/Wounds Goal:Patient/Caregive r will have improved healing and be free of signs and symptoms of complications Completed Completed by SN. Patient did tolerate well. Instruct and educate on knowledge deficits Problem:SN Learning Assessment Goal:Demonstrate understanding of education Completed patient verbalize and/or demonstrate understanding of nursing education completed today. Education methods include: verbal cues. Further education required to improve knowledge and compliance with fall prevention/home safety strategies and incision/wound care management. documented in this encounter [facility]'s home Plan of care note* Visit Details Visit Type -SN ROUTINE Discipline -Assisted Problems Problem Description Start Date Status Goals Interve ntions Medication Education Disciplines: Skilled Services 02/11/2023 Active 1 goal linked to scheduled/documen rashawn intervention 1 goal intervention scheduled/document ed in this visit Sepsis Disciplines: Skilled Services 02/11/2023 Active 1 goal linked to scheduled/documen rashawn intervention 1 goal intervention scheduled/document ed in this visit Physician Specific Parameters Disciplines: Skilled Services 02/11/2023 Active 1 goal linked to scheduled/documen rashawn intervention 1 goal intervention scheduled/document ed in this visit Risk for Falls Disciplines: Skilled Services 02/11/2023 Active 1 goal linked to scheduled/documen rashawn intervention 1 goal intervention scheduled/document ed in this visit Pain Disciplines: Skilled Services 02/11/2023 Active 1 goal linked to scheduled/documen rashawn intervention 1 goal intervention scheduled/document ed in this visit Oxygen Disciplines: Skilled Services 02/11/2023 Active 1 goal linked to scheduled/documen rashawn intervention Nutrition/Hydrati on Disciplines: Skilled Services 02/11/2023 Active 1 goal linked to scheduled/documen rashawn intervention 1 goal intervention scheduled/document ed in this visit High Risk Medications Disciplines: Skilled Services 02/11/2023 Active 1 goal linked to scheduled/documen rashawn intervention SN Respiratory Disease Disciplines: SN 02/11/2023 Active 1 goal linked to scheduled/documen rashawn intervention 1 goal intervention scheduled/document ed in this visit SN Integumentary/Wou nds Disciplines: SN 02/11/2023 Active 1 goal linked to scheduled/documen rashawn intervention 3 goal interventions scheduled/document ed in this visit SN Learning Assessment Disciplines: SN 02/11/2023 Active 1 goal linked to scheduled/documen rashawn intervention 1 goal intervention scheduled/document ed in this visit SN Edema Disciplines: SN 02/11/2023 Resolved on 02/21/2023 1 goal linked to scheduled/documen rsahawn intervention Goals Goal Associated Problem Outcome Goal Met? Visit Notes Patient/caregiver will demonstrate ability to obtain, store, identify and administer ordered medications, keep accurate medication list in home, and adhere to medication schedule Description: Patient/caregiver will demonstrate ability to obtain, store, identify and administer ordered medications, keep accurate medication list in home, and adhere to medication schedule by 04/11/23. Medication Education In Progress No Patient/caregiver will be able to identify and report symptoms of sepsis Description: Patient/caregiver will be able to identify signs/symptoms of sepsis infection and will verbalize actions to take if suspected by 04/11/23. Sepsis In Progress No Patient to maintain parameters within physician-specified ranges throughout certification period Physician Specific Parameters In Progress No Manage Risk for falls Description: Patient/caregiver will verbalize knowledge of individualized fall prevention strategies by 04/11/23. Risk for Falls In Progress No Manage Pain Description: Patient/caregiver will verbalize knowledge and understanding of appropriate techniques to control pain, including pain medication and non-pharmacological techniques. Patient will verbalize or demonstrate an acceptable level of pain as evidenced by a pain score of 0/10 and improvement in ability to perform activities of daily living to be achieved by 04/11/23. Pain In Progress No Manage oxygen Description: Patient/caregiver will use oxygen safely and effectively in home by verbalizing and demonstrating oxygen safety by 04/11/23. Oxygen In Progress No Manage Nutrition/Hydration Description: Patient/caregiver will verbalize/demonstrate knowledge of prescribed diet and/or healthy nutrition to be achieved by 03/23/23. Nutrition/Hydration In Progress No Patient/caregiver will teach back high risk medication side effect and precaution education High Risk Medications In Progress No Improved management of respiratory condition Description: Improve respiratory management as evidenced by patient/caregiver's ability to teach back strategies for improving respiratory status by 03/23/23. SN Respiratory Disease In Progress No Patient/Caregiver will have improved healing and be free of signs and symptoms of complications Description: Patient/caregiver will verbalize management strategies to promote wound healing & prevent complications as evidenced by improved healing & no complications by 04/11/23. SN Integumentary/Wounds In Progress No Demonstrate understanding of education Description: Patient and/or caregiver will verbalize understanding of educational instruction provided throughout certification period. SN Learning Assessment In Progress No Patient will have improved edema management Description: Patient/caregiver will demonstrate an understanding of edema management strategies as evidenced by resolution or stabilization of edema by 03/23/23. SN Edema Completed Yes Interventions Intervention Associated Problem/Goal Status Variance Visit Notes Medication Education Description: Evaluate/instruct patient/caregiver on obtaining, storing, identifying and administering ordered medications as well as keeping accurate medication list in the home and adhereing to medication schedule Problem:Medication Education Goal:Patient/caregive r will demonstrate ability to obtain, store, identify and administer ordered medications, keep accurate medication list in home, and adhere to medication schedule Completed Patient instructed on adhering to medication schedule. Sepsis aftercare Description: Patient recenty treated for sepsis related to Right groin abscess. Educate on signs/symptoms of recurrent infection and actions to take if suspected. Problem:Sepsis Goal:Patient/caregive r will be able to identify and report symptoms of sepsis Completed Patient instructed on signs/symptoms of recurrent infection including fever >101, new or worsening onset of pain, decreased urine output and significant change in patient condition. SPO2 Description: Notify Jose Daniel Mane CNP if pulse ox is <92% at rest. Problem:Physician Specific Parameters Goal:Patient to maintain parameters within physician-specified ranges throughout certification period Completed Instruct on individual fall risk factors and strategies to prevent falls and injuries caused by falls. Problem:Risk for Falls Goal:Manage Risk for falls Completed SN: Patient instructed on Managing Impaired Functional Mobility: Use assistive device(s): front wheeled walker Instruct on pain and instruct on strategies to control pain Problem:Pain Goal:Manage Pain Completed patient instructed on techniques to control pain including Non-Pharmacological measures; positioning/elevation . Define patient s appetite/hydration status and implement strategies to improve compliance with prescribed diet and/or healthy nutrition. Problem:Nutrition/Hyd ration Goal:Manage Nutrition/Hydration Completed reinforced patient on implementing strategies to comply with healthy nutrition and adequate hydration Instruct on respiratory disease process and management of condition Description: Patient has following respiratory diagnosis(es): chronic respiratory failure Problem:SN Respiratory Disease Goal:Improved management of respiratory condition Completed patient assessed and reinforced on self monitoring & symptom reporting. Instruct patient/caregiver healing process and management measures to promote healing and avoid complications Problem:SN Integumentary/Wounds Goal:Patient/Caregive r will have improved healing and be free of signs and symptoms of complications Completed patient instructed on the following: healing process. Instruct Patient/Caregiver on wound/incision care procedure as ordered by physician Problem:SN Integumentary/Wounds Goal:Patient/Caregive r will have improved healing and be free of signs and symptoms of complications Completed patient instructed on wound care as ordered by Physician. Wound Care: Perform wound care (1) Description: Per order of Elroy Calvo: Wound location: right groin 3. Shower on the days that your home care nurse is visiting; keep the wound covered with your dressing while showering, then remove the dressing after your shower and cover the wound with clean gauze until your nurse arrives 4. Apply Vashe soak: apply Vashe moistened gauze to the wound and allow to soak for 5-10 minutes, then remove and wipe the wound clean 4. Apply silver alginate (felt-like material) to the wound base. 5. Cover with [place] SAP bordered foam dressing 6. Change your dressing every other day Sprinkle the miconazole (anti-fungal powder) to groin skin folds twice a day Problem:SN Integumentary/Wounds Goal:Patient/Caregive r will have improved healing and be free of signs and symptoms of complications Completed Completed by SN. Patient did tolerate well. Instruct and educate on knowledge deficits Problem:SN Learning Assessment Goal:Demonstrate understanding of education Completed patient verbalize and/or demonstrate understanding of nursing education completed today. Education methods include: verbal cues. Further education required to improve knowledge and compliance with fall prevention/home safety strategies, incision/wound care management, integumentary care management, medication management, nutrition, oxygen safety and pulmonary disease management. documented in this encounter [facility]'s home Plan of care note* Visit Details Visit Type -SN ROUTINE Discipline -Assisted Problems Problem Description Start Date Status Goals Interve ntions Medication Education Disciplines: Skilled Services 02/11/2023 Active 1 goal linked to scheduled/documen rashawn intervention 1 goal intervention scheduled/document ed in this visit Sepsis Disciplines: Skilled Services 02/11/2023 Active 1 goal linked to scheduled/documen rashawn intervention 1 goal intervention scheduled/document ed in this visit Physician Specific Parameters Disciplines: Skilled Services 02/11/2023 Active 1 goal linked to scheduled/documen rashawn intervention 1 goal intervention scheduled/document ed in this visit Risk for Falls Disciplines: Skilled Services 02/11/2023 Active 1 goal linked to scheduled/documen rashawn intervention 1 goal intervention scheduled/document ed in this visit Pain Disciplines: Skilled Services 02/11/2023 Resolved on 02/27/2023 1 goal linked to scheduled/documen rashawn intervention Oxygen Disciplines: Skilled Services 02/11/2023 Active 1 goal linked to scheduled/documen rashawn intervention Nutrition/Hydrati on Disciplines: Skilled Services 02/11/2023 Active 1 goal linked to scheduled/documen rashawn intervention 1 goal intervention scheduled/document ed in this visit High Risk Medications Disciplines: Skilled Services 02/11/2023 Resolved on 02/27/2023 1 goal linked to scheduled/documen rashawn intervention SN Respiratory Disease Disciplines: 02/11/2023 Active 1 goal linked to scheduled/documen rashawn intervention 1 goal intervention scheduled/document ed in this visit SN Integumentary/Wou nds Disciplines: SN 02/11/2023 Active 1 goal linked to scheduled/documen rashawn intervention 3 goal interventions scheduled/document ed in this visit SN Learning Assessment Disciplines: 02/11/2023 Active 1 goal linked to scheduled/documen rashawn intervention 1 goal intervention scheduled/document ed in this visit Goals Goal Associated Problem Outcome Goal Met? Visit Notes Patient/caregiver will demonstrate ability to obtain, store, identify and administer ordered medications, keep accurate medication list in home, and adhere to medication schedule Description: Patient/caregiver will demonstrate ability to obtain, store, identify and administer ordered medications, keep accurate medication list in home, and adhere to medication schedule by 04/11/23. Medication Education In Progress No Patient/caregiver will be able to identify and report symptoms of sepsis Description: Patient/caregiver will be able to identify signs/symptoms of sepsis infection and will verbalize actions to take if suspected by 04/11/23. Sepsis In Progress No Patient to maintain parameters within physician-specified ranges throughout certification period Physician Specific Parameters In Progress No Manage Risk for falls Description: Patient/caregiver will verbalize knowledge of individualized fall prevention strategies by 04/11/23. Risk for Falls In Progress No Manage Pain Description: Patient/caregiver will verbalize knowledge and understanding of appropriate techniques to control pain, including pain medication and non-pharmacological techniques. Patient will verbalize or demonstrate an acceptable level of pain as evidenced by a pain score of 0/10 and improvement in ability to perform activities of daily living to be achieved by 04/11/23. Pain Completed Yes Manage oxygen Description: Patient/caregiver will use oxygen safely and effectively in home by verbalizing and demonstrating oxygen safety by 04/11/23. Oxygen In Progress No Manage Nutrition/Hydration Description: Patient/caregiver will verbalize/demonstrate knowledge of prescribed diet and/or healthy nutrition to be achieved by 03/23/23. Nutrition/Hydration In Progress No Patient/caregiver will teach back high risk medication side effect and precaution education High Risk Medications Completed Yes Improved management of respiratory condition Description: Improve respiratory management as evidenced by patient/caregiver's ability to teach back strategies for improving respiratory status by 03/23/23. SN Respiratory Disease In Progress No Patient/Caregiver will have improved healing and be free of signs and symptoms of complications Description: Patient/caregiver will verbalize management strategies to promote wound healing & prevent complications as evidenced by improved healing & no complications by 04/11/23. SN Integumentary/Wounds No Demonstrate understanding of education Description: Patient and/or caregiver will verbalize understanding of educational instruction provided throughout certification period. SN Learning Assessment In Progress No Interventions Intervention Associated Problem/Goal Status Variance Visit Notes Medication Education Description: Evaluate/instruct patient/caregiver on obtaining, storing, identifying and administering ordered medications as well as keeping accurate medication list in the home and adhereing to medication schedule Problem:Medication Education Goal:Patient/caregive r will demonstrate ability to obtain, store, identify and administer ordered medications, keep accurate medication list in home, and adhere to medication schedule Completed Patient instructed on adhering to medication schedule. Sepsis aftercare Description: Patient recenty treated for sepsis related to Right groin abscess. Educate on signs/symptoms of recurrent infection and actions to take if suspected. Problem:Sepsis Goal:Patient/caregive r will be able to identify and report symptoms of sepsis Completed Patient instructed on signs/symptoms of recurrent infection including fever >101 and new or worsening onset of pain. SPO2 Description: Notify Jose Daniel Mane CNP if pulse ox is <92% at rest. Problem:Physician Specific Parameters Goal:Patient to maintain parameters within physician-specified ranges throughout certification period Completed Instruct on individual fall risk factors and strategies to prevent falls and injuries caused by falls. Problem:Risk for Falls Goal:Manage Risk for falls Completed SN: Patient instructed on Eliminating Environmental Hazards: Keep pathways clear Define patient s appetite/hydration status and implement strategies to improve compliance with prescribed diet and/or healthy nutrition. Problem:Nutrition/Hyd ration Goal:Manage Nutrition/Hydration Completed reinforced patient on implementing strategies to comply with healthy nutrition and adequate hydration Instruct on respiratory disease process and management of condition Description: Patient has following respiratory diagnosis(es): chronic respiratory failure Problem:SN Respiratory Disease Goal:Improved management of respiratory condition Completed patient assessed and reinforced on self monitoring & symptom reporting. Wound VAC: Instruct on maintenance of Negative Pressure Wound Therapy Machine Problem:SN Integumentary/Wounds Goal:Patient/Caregive r will have improved healing and be free of signs and symptoms of complications Completed patient instructed on the following: how to change the canister. Instruct patient/caregiver healing process and management measures to promote healing and avoid complications Problem:SN Integumentary/Wounds Goal:Patient/Caregive r will have improved healing and be free of signs and symptoms of complications Completed patient instructed on the following: healing process, signs and symptoms of infection and importance of good nutrition. Wound Vac: Perform Negative Pressure Wound Therapy Description: Per Elroy Amaya [employer]: Right groin- (to begin 02/26/23) -shower on the days that your home care nurse is visiting; keep the wound covered with your dressing while showering, then remove the dressing after your shower and cover the wound with clean gauze until your nurse arrives -Apply Vashe soak: apply Vashe moistened gauze to the wound and allow to soak for 5-10 minutes, then remove and wipe the wound clean -sprinkle the miconazole(anti-fungal powder) to groin skin folds -skin prep and mastisol to the elle wound -apply Goldie's seal to distal aspect of wound -window around wound with wound vac drape -lightly pack wound with simplace black foam -secure with clear vac drape and attach suction disc tracked to rt. upper anterior thigh,pad between vac tubing and patient skin. -150mmHg negative pressure, high intensity, continuous suction, change every Sunday-Sun.- and Sunday and prn. -for vac malfunction: Patient/caregiver to clean as stated above ,apply Miconazole powder to groin skin folds, apply calc. alginate Ag to wound bed, cover with [place] SAP silicone bordered foam dressing ,change qod and prn to maintain clean dry and intact dressing until wound vac can be reapplied. -May use like/similar supplies. Problem:SN Integumentary/Wounds Goal:Patient/Caregive r will have improved healing and be free of signs and symptoms of complications Completed Completed. Patient did tolerate well. Patient instructed on removing wound vac in case of malfunction, applying wet to dry dressing, and calling [facility] Triage department to report wound vac off. Verified wet to dry dressing supplies in home. Instruct and educate on knowledge deficits Problem:SN Learning Assessment Goal:Demonstrate understanding of education Completed patient verbalize and/or demonstrate understanding of nursing education completed today. Education methods include: verbal cues and visual cues. Further education required to improve knowledge and compliance with fall prevention/home safety strategies, incision/wound care management, medication management, nutrition and pulmonary disease management. documented in this encounter [facility]'s home Plan of care note* Visit Details Visit Type -SN ROUTINE Discipline -Assisted Problems Problem Description Start Date Status Goals Interve ntions Medication Education Disciplines: Skilled Services 02/11/2023 Active 1 goal linked to scheduled/document ed intervention 1 goal intervention scheduled/document ed in this visit Sepsis Disciplines: Skilled Services 02/11/2023 Active 1 goal linked to scheduled/document ed intervention 1 goal intervention scheduled/document ed in this visit Physician Specific Parameters Disciplines: Skilled Services 02/11/2023 Active 1 goal linked to scheduled/document ed intervention 1 goal intervention scheduled/document ed in this visit Risk for Falls Disciplines: Skilled Services 02/11/2023 Active 1 goal linked to scheduled/document ed intervention 1 goal intervention scheduled/document ed in this visit Oxygen Disciplines: Skilled Services 02/11/2023 Active 1 goal linked to scheduled/document ed intervention 1 goal intervention scheduled/document ed in this visit Nutrition/Hydrati on Disciplines: Skilled Services 02/11/2023 Active 1 goal linked to scheduled/document ed intervention 1 goal intervention scheduled/document ed in this visit Discharge Disciplines: Skilled Services 02/11/2023 Active 1 goal linked to scheduled/document ed intervention 1 goal intervention scheduled/document ed in this visit SN Respiratory Disease Disciplines: SN 02/11/2023 Active 1 goal linked to scheduled/document ed intervention 1 goal intervention scheduled/document ed in this visit SN Integumentary/Wou nds Disciplines: SN 02/11/2023 Active 1 goal linked to scheduled/document ed intervention 4 goal interventions scheduled/document ed in this visit SN Learning Assessment Disciplines: SN 02/11/2023 Active 1 goal linked to scheduled/document ed intervention 1 goal intervention scheduled/document ed in this visit Goals Goal Associated Problem Outcome Goal Met? Visit Notes Patient/caregiver will demonstrate ability to obtain, store, identify and administer ordered medications, keep accurate medication list in home, and adhere to medication schedule Description: Patient/caregiver will demonstrate ability to obtain, store, identify and administer ordered medications, keep accurate medication list in home, and adhere to medication schedule by 04/11/23. Medication Education No Patient/caregiver will be able to identify and report symptoms of sepsis Description: Patient/caregiver will be able to identify signs/symptoms of sepsis infection and will verbalize actions to take if suspected by 04/11/23. Sepsis No Patient to maintain parameters within physician-specified ranges throughout certification period Physician Specific Parameters No Manage Risk for falls Description: Patient/caregiver will verbalize knowledge of individualized fall prevention strategies by 04/11/23. Risk for Falls No Manage oxygen Description: Patient/caregiver will use oxygen safely and effectively in home by verbalizing and demonstrating oxygen safety by 04/11/23. Oxygen No Manage Nutrition/Hydration Description: Patient/caregiver will verbalize/demonstrate knowledge of prescribed diet and/or healthy nutrition to be achieved by 03/23/23. Nutrition/Hydration No Manage discharge planning Description: Patient/caregiver will verbalize understanding of ongoing discharge plan provided related to disease management, arrangements for outpatient and/or community services, obtaining medications, supplies, and DME, as needed throughout certification period. Discharge No Improved management of respiratory condition Description: Improve respiratory management as evidenced by patient/caregiver's ability to teach back strategies for improving respiratory status by 03/23/23. SN Respiratory Disease No Patient/Caregiver will have improved healing and be free of signs and symptoms of complications Description: Patient/caregiver will verbalize management strategies to promote wound healing & prevent complications as evidenced by improved healing & no complications by 04/11/23. SN Integumentary/Wounds No Demonstrate understanding of education Description: Patient and/or caregiver will verbalize understanding of educational instruction provided throughout certification period. SN Learning Assessment No Interventions Intervention Associated Problem/Goal Status Variance Visit Notes Medication Education Description: Evaluate/instruct patient/caregiver on obtaining, storing, identifying and administering ordered medications as well as keeping accurate medication list in the home and adhereing to medication schedule Problem:Medication Education Goal:Patient/caregive r will demonstrate ability to obtain, store, identify and administer ordered medications, keep accurate medication list in home, and adhere to medication schedule Completed Patient instructed on importance of keeping accurate medication list in home, adhering to medication schedule and proper storage of medications. Sepsis aftercare Description: Patient recenty treated for sepsis related to Right groin abscess. Educate on signs/symptoms of recurrent infection and actions to take if suspected. Problem:Sepsis Goal:Patient/caregive r will be able to identify and report symptoms of sepsis Completed Patient instructed on signs/symptoms of recurrent infection including fever >101, hypothermia <96.8, tachycardia >90 or higher per their baseline, decreased pulse ox <92% with increased shortness of breath, increase in 02 requirements, new or worsening onset of pain, decreased urine output and new onset change in mentation status. SPO2 Description: Notify Jose Daniel Mane CNP if pulse ox is <92% at rest. Problem:Physician Specific Parameters Goal:Patient to maintain parameters within physician-specified ranges throughout certification period Completed Instruct on individual fall risk factors and strategies to prevent falls and injuries caused by falls. Problem:Risk for Falls Goal:Manage Risk for falls Completed SN: Patient instructed on Eliminating Environmental Hazards: Keep pathways clear, Wear supportive shoes or non-skid socks and Keep frequently used items within reach Instruct on fire safety and safe and effective use of oxygen in the home Problem:Oxygen Goal:Manage oxygen Completed patient instructed on: findings of safety risk assessment, causes of fires, firerisks for neighboring residences and buildings and precautions that can prevent fire-related injuries patient demonstrate compliance with safety recommendations. Define patient s appetite/hydration status and implement strategies to improve compliance with prescribed diet and/or healthy nutrition. Problem:Nutrition/Hyd ration Goal:Manage Nutrition/Hydration Completed reinforced patient on implementing strategies to comply with healthy nutrition and adequate hydration Instruct on ongoing discharge plan Problem:Discharge Goal:Manage discharge planning Completed Ongoing Discharge plan: Discharge plan discussed with patient including frequency and duration for home SN and plan for transition to: live independently at home without ongoing services. Instruct on respiratory disease process and management of condition Description: Patient has following respiratory diagnosis(es): chronic respiratory failure Problem:SN Respiratory Disease Goal:Improved management of respiratory condition Completed patient assessed and instructed on respiratory disease process, s/s of respiratory infection and anxiety management. Wound VAC: Instruct on maintenance of Negative Pressure Wound Therapy Machine Problem:SN Integumentary/Wounds Goal:Patient/Caregive r will have improved healing and be free of signs and symptoms of complications Completed patient instructed on the following: how to turn the machine on and off, how to charge the battery, how to change the canister, proper storage and cleaning of supplies and disposal of soiled dressings. Instruct patient/caregiver healing process and management measures to promote healing and avoid complications Problem:SN Integumentary/Wounds Goal:Patient/Caregive r will have improved healing and be free of signs and symptoms of complications Completed patient instructed on the following: healing process, signs and symptoms of infection, importance of good nutrition and when to report symptoms. Instruct Patient/Caregiver on wound/incision care procedure as ordered by physician Problem:SN Integumentary/Wounds Goal:Patient/Caregive r will have improved healing and be free of signs and symptoms of complications Completed patient instructed on wound care as ordered by Physician. Wound Vac: Perform Negative Pressure Wound Therapy Description: Per Elroy Amaya [employer]W [employer] FUSER: Right groin- (to begin 03/02/23) Keep your Wound Vac dressing dry and intact until your next dressing change. If your Wound Vac fails, please remember that you have 2 hours to get it running. At the 2 hour bridgett please remove the entire dressing, wound packing, and all of the elle-wound dressing and begin the alternate dressing as written below. ALTERNATE DRESSING IF WOUND VAC MUST BE REMOVED: 1. Wash your hands with soap and water before and after wound care. 2. Gather all supplies needed. 3. Apply Vashe moistened gauze to the wound and allow to soak for 5-10 minutes, then remove and wipe the wound clean. 4. Sprinkle Miconazole powder to groin skin folds twice daily 5. Apply Calcium Alginate Ag (Silver Alginate) - felt like material to wound bed 6. Cover with [place] SAP silicone bordered foam dressing 7. Change your dressing every other day and as needed to maintain a clean, dry, intact dressing Wound vac settings 150 mmhg negative pressure High intensity Continuous suction Change dressings M-W-F 2. Gather all supplies needed. 3. Shower on the days that your home care nurse is visiting; keep the wound covered with your dressing while showering, then remove the dressing after your shower and cover the wound with clean gauze until your nurse arrives 4. Apply Vashe soak: apply Vashe moistened gauze to the wound and allow to soak for 5-10 minutes, then remove and wipe the wound clean 5.Sprinkle the miconazole (anti-fungal powder) to groin skin folds 6. Skin prep and mastisol to the elle-wound 7. Apply Goldie's seal to distal aspect of wound 8. Window wound with wound vac drape 9. Lightly pack wound with Simplace black foam 10. Secure with clear vac drape and attach suction disc tracked to right upper anterior thigh 11. Pad between vac tubing and patients skin To give your wound the best chance to heal: - Eat three balanced meals daily focusing on the protein - Control swelling by elevating the extremity above your heart - Complete your wound care instructions - Vitamin C 500 mg twice daily - Multiple Vitamin Daily - Drink a protein shake daily Report any of the following changes [phone] or go to the Emergency Department: Fever or chills Increased drainage Green or yellow drainage Foul odor Increased pain Hardness around the wound Redness, warmth or swelling of the surrounding tissue Color change to the woun Problem:SN Integumentary/Wounds Goal:Patient/Caregive r will have improved healing and be free of signs and symptoms of complications Completed Completed. Patient did tolerate well. Patient instructed on removing wound vac in case of malfunction, applying wet to dry dressing, and calling [facility] Triage department to report wound vac off. Verified wet to dry dressing supplies in home. Instruct and educate on knowledge deficits Problem:SN Learning Assessment Goal:Demonstrate understanding of education Completed patient verbalize and/or demonstrate understanding of nursing education completed today. Education methods include: verbal cues and visual cues. Further education required to improve knowledge and compliance with fall prevention/home safety strategies, incision/wound care management, infection control precautions, integumentary care management, medication management, nutrition, pain management and pulmonary disease management. documented in this encounter [facility] home Plan of care note* Visit Details Visit Type -SN ROUTINE Discipline -Assisted Problems Problem Description Start Date Status Goals Interve ntions Physician Specific Parameters Disciplines: Skilled Services 02/11/2023 Active 1 goal linked to scheduled/document ed intervention 1 goal intervention scheduled/documente d in this visit Risk for Falls Disciplines: Skilled Services 02/11/2023 Active 1 goal linked to scheduled/document ed intervention 1 goal intervention scheduled/documente d in this visit Nutrition/Hydra tion Disciplines: Skilled Services 02/11/2023 Active 1 goal linked to scheduled/document ed intervention 1 goal intervention scheduled/documente d in this visit Discharge Disciplines: Skilled Services 02/11/2023 Active 1 goal linked to scheduled/document ed intervention 1 goal intervention scheduled/documente d in this visit SN Integumentary/W ounds Disciplines: SN 02/11/2023 Active 1 goal linked to scheduled/document ed intervention 4 goal interventions scheduled/documente d in this visit Goals Goal Associated Problem Outcome Goal Met? Visit Notes Patient to maintain parameters within physician-specified ranges throughout certification period Physician Specific Parameters No Manage Risk for falls Description: Patient/caregiver will verbalize knowledge of individualized fall prevention strategies by 04/11/23. Risk for Falls No Manage Nutrition/Hydration Description: Patient/caregiver will verbalize/demonstrate knowledge of prescribed diet and/or healthy nutrition to be achieved by 03/23/23. Nutrition/Hydration No Manage discharge planning Description: Patient/caregiver will verbalize understanding of ongoing discharge plan provided related to disease management, arrangements for outpatient and/or community services, obtaining medications, supplies, and DME, as needed throughout certification period. Discharge No Patient/Caregiver will have improved healing and be free of signs and symptoms of complications Description: Patient/caregiver will verbalize management strategies to promote wound healing & prevent complications as evidenced by improved healing & no complications by 04/11/23. SN Integumentary/Wounds No Interventions Intervention Associated Problem/Goal Status Variance Visit Notes SPO2 Description: Notify Jose Daniel Mane CNP if pulse ox is <92% at rest. Problem:Physician Specific Parameters Goal:Patient to maintain parameters within physician-specified ranges throughout certification period Completed Instruct on individual fall risk factors and strategies to prevent falls and injuries caused by falls. Problem:Risk for Falls Goal:Manage Risk for falls Completed SN: Patient instructed on Eliminating Environmental Hazards: Keep pathways clear and Keep pets out of pathways Define patient s appetite/hydration status and implement strategies to improve compliance with prescribed diet and/or healthy nutrition. Problem:Nutrition/Hyd ration Goal:Manage Nutrition/Hydration Completed reinforced patient on implementing strategies to comply with healthy nutrition and adequate hydration Instruct on ongoing discharge plan Problem:Discharge Goal:Manage discharge planning Completed Ongoing Discharge plan: Discharge plan discussed with patient including frequency and duration for home SN and plan for transition to: caregiver assistance. Wound VAC: Instruct on maintenance of Negative Pressure Wound Therapy Machine Problem:SN Integumentary/Wounds Goal:Patient/Caregive r will have improved healing and be free of signs and symptoms of complications Completed patient instructed on the following: how to turn the machine on and off. Instruct patient/caregiver healing process and management measures to promote healing and avoid complications Problem:SN Integumentary/Wounds Goal:Patient/Caregive r will have improved healing and be free of signs and symptoms of complications Completed patient instructed on the following: healing process and signs and symptoms of infection. Instruct Patient/Caregiver on wound/incision care procedure as ordered by physician Problem:SN Integumentary/Wounds Goal:Patient/Caregive r will have improved healing and be free of signs and symptoms of complications Completed patient instructed on wound care as ordered by Physician. Wound Vac: Perform Negative Pressure Wound Therapy Description: Per Elroy NashJosselinTessdaniel [employer]W [employer] FUSER: Right groin- (to begin 03/02/23) Keep your Wound Vac dressing dry and intact until your next dressing change. If your Wound Vac fails, please remember that you have 2 hours to get it running. At the 2 hour bridgett please remove the entire dressing, wound packing, and all of the elle-wound dressing and begin the alternate dressing as written below. ALTERNATE DRESSING IF WOUND VAC MUST BE REMOVED: 1. Wash your hands with soap and water before and after wound care. 2. Gather all supplies needed. 3. Apply Vashe moistened gauze to the wound and allow to soak for 5-10 minutes, then remove and wipe the wound clean. 4. Sprinkle Miconazole powder to groin skin folds twice daily 5. Apply Calcium Alginate Ag (Silver Alginate) - felt like material to wound bed 6. Cover with [place] SAP silicone bordered foam dressing 7. Change your dressing every other day and as needed to maintain a clean, dry, intact dressing Wound vac settings 150 mmhg negative pressure High intensity Continuous suction Change dressings M-W-F 2. Gather all supplies needed. 3. Shower on the days that your home care nurse is visiting; keep the wound covered with your dressing while showering, then remove the dressing after your shower and cover the wound with clean gauze until your nurse arrives 4. Apply Vashe soak: apply Vashe moistened gauze to the wound and allow to soak for 5-10 minutes, then remove and wipe the wound clean 5.Sprinkle the miconazole (anti-fungal powder) to groin skin folds 6. Skin prep and mastisol to the elle-wound 7. Apply Goldie's seal to distal aspect of wound 8. Window wound with wound vac drape 9. Lightly pack wound with Simplace black foam 10. Secure with clear vac drape and attach suction disc tracked to right upper anterior thigh 11. Pad between vac tubing and patients skin To give your wound the best chance to heal: - Eat three balanced meals daily focusing on the protein - Control swelling by elevating the extremity above your heart - Complete your wound care instructions - Vitamin C 500 mg twice daily - Multiple Vitamin Daily - Drink a protein shake daily Report any of the following changes [phone] or go to the Emergency Department: Fever or chills Increased drainage Green or yellow drainage Foul odor Increased pain Hardness around the wound Redness, warmth or swelling of the surrounding tissue Color change to the woun Problem:SN Integumentary/Wounds Goal:Patient/Caregive r will have improved healing and be free of signs and symptoms of complications Completed Completed. Patient did tolerate well. Patient instructed on removing wound vac in case of malfunction, applying wet to dry dressing, and calling [facility] Triage department to report wound vac off. Verified wet to dry dressing supplies in home. [facility] Visit Details Visit Type -SN ROUTINE Discipline -Assisted Problems Problem Description Start Date Status Goals Interve ntions Medication Education Disciplines: Skilled Services 02/11/2023 Active 1 goal linked to scheduled/document ed intervention 1 goal intervention scheduled/document ed in this visit Sepsis Disciplines: Skilled Services 02/11/2023 Active 1 goal linked to scheduled/document ed intervention 1 goal intervention scheduled/document ed in this visit Physician Specific Parameters Disciplines: Skilled Services 02/11/2023 Active 1 goal linked to scheduled/document ed intervention 1 goal intervention scheduled/document ed in this visit Risk for Falls Disciplines: Skilled Services 02/11/2023 Active 1 goal linked to scheduled/document ed intervention 1 goal intervention scheduled/document ed in this visit Nutrition/Hydrati on Disciplines: Skilled Services 02/11/2023 Active 1 goal linked to scheduled/document ed intervention 1 goal intervention scheduled/document ed in this visit SN Respiratory Disease Disciplines: SN 02/11/2023 Active 1 goal linked to scheduled/document ed intervention 1 goal intervention scheduled/document ed in this visit SN Integumentary/Wou nds Disciplines: SN 02/11/2023 Active 1 goal linked to scheduled/document ed intervention 4 goal interventions scheduled/document ed in this visit SN Learning Assessment Disciplines: 02/11/2023 Active 1 goal linked to scheduled/document ed intervention 1 goal intervention scheduled/document ed in this visit Goals Goal Associated Problem Outcome Goal Met? Visit Notes Patient/caregiver will demonstrate ability to obtain, store, identify and administer ordered medications, keep accurate medication list in home, and adhere to medication schedule Description: Patient/caregiver will demonstrate ability to obtain, store, identify and administer ordered medications, keep accurate medication list in home, and adhere to medication schedule by 04/11/23. Medication Education In Progress No Patient/caregiver will be able to identify and report symptoms of sepsis Description: Patient/caregiver will be able to identify signs/symptoms of sepsis infection and will verbalize actions to take if suspected by 04/11/23. Sepsis In Progress No Patient to maintain parameters within physician-specified ranges throughout certification period Physician Specific Parameters In Progress No Manage Risk for falls Description: Patient/caregiver will verbalize knowledge of individualized fall prevention strategies by 04/11/23. Risk for Falls In Progress No Manage Nutrition/Hydration Description: Patient/caregiver will verbalize/demonstrate knowledge of prescribed diet and/or healthy nutrition to be achieved by 03/23/23. Nutrition/Hydration In Progress No Improved management of respiratory condition Description: Improve respiratory management as evidenced by patient/caregiver's ability to teach back strategies for improving respiratory status by 03/23/23. SN Respiratory Disease In Progress No Patient/Caregiver will have improved healing and be free of signs and symptoms of complications Description: Patient/caregiver will verbalize management strategies to promote wound healing & prevent complications as evidenced by improved healing & no complications by 04/11/23. SN Integumentary/Wounds In Progress No Demonstrate understanding of education Description: Patient and/or caregiver will verbalize understanding of educational instruction provided throughout certification period. SN Learning Assessment In Progress No Interventions Intervention Associated Problem/Goal Status Variance Visit Notes Medication Education Description: Evaluate/instruct patient/caregiver on obtaining, storing, identifying and administering ordered medications as well as keeping accurate medication list in the home and adhereing to medication schedule Problem:Medication Education Goal:Patient/caregive r will demonstrate ability to obtain, store, identify and administer ordered medications, keep accurate medication list in home, and adhere to medication schedule Completed Patient instructed on adhering to medication schedule. Sepsis aftercare Description: Patient recenty treated for sepsis related to Right groin abscess. Educate on signs/symptoms of recurrent infection and actions to take if suspected. Problem:Sepsis Goal:Patient/caregive r will be able to identify and report symptoms of sepsis Completed Patient instructed on signs/symptoms of recurrent infection including fever >101. SPO2 Description: Notify [facility] if pulse ox is <92% at rest. Problem:Physician Specific Parameters Goal:Patient to maintain parameters within physician-specified ranges throughout certification period Completed Instruct on individual fall risk factors and strategies to prevent falls and injuries caused by falls. Problem:Risk for Falls Goal:Manage Risk for falls Completed SN: Patient instructed on Eliminating Environmental Hazards: Keep pathways clear Define patient s appetite/hydration status and implement strategies to improve compliance with prescribed diet and/or healthy nutrition. Problem:Nutrition/Hyd ration Goal:Manage Nutrition/Hydration Completed reinforced patient on implementing strategies to comply with healthy nutrition Instruct on respiratory disease process and management of condition Description: Patient has following respiratory diagnosis(es): chronic respiratory failure Problem:SN Respiratory Disease Goal:Improved management of respiratory condition Completed patient assessed and reinforced on self monitoring & symptom reporting. Instruct patient/caregiver healing process and management measures to promote healing and avoid complications Problem:SN Integumentary/Wounds Goal:Patient/Caregive r will have improved healing and be free of signs and symptoms of complications Completed patient instructed on the following: healing process. Instruct Patient/Caregiver on wound/incision care procedure as ordered by physician Problem:SN Integumentary/Wounds Goal:Patient/Caregive r will have improved healing and be free of signs and symptoms of complications Completed patient instructed on wound care as ordered by Physician. Wound Vac: Perform Negative Pressure Wound Therapy Description: Per Elroy Amaya [employer]W [employer] FUSER: Right groin- (to begin 03/02/23) Keep your Wound Vac dressing dry and intact until your next dressing change. If your Wound Vac fails, please remember that you have 2 hours to get it running. At the 2 hour bridgett please remove the entire dressing, wound packing, and all of the elle-wound dressing and begin the alternate dressing as written below. ALTERNATE DRESSING IF WOUND VAC MUST BE REMOVED: 1. Wash your hands with soap and water before and after wound care. 2. Gather all supplies needed. 3. Apply Vashe moistened gauze to the wound and allow to soak for 5-10 minutes, then remove and wipe the wound clean. 4. Sprinkle Miconazole powder to groin skin folds twice daily 5. Apply Calcium Alginate Ag (Silver Alginate) - felt like material to wound bed 6. Cover with [place] SAP silicone bordered foam dressing 7. Change your dressing every other day and as needed to maintain a clean, dry, intact dressing Wound vac settings 150 mmhg negative pressure High intensity Continuous suction Change dressings M-W-F 2. Gather all supplies needed. 3. Shower on the days that your home care nurse is visiting; keep the wound covered with your dressing while showering, then remove the dressing after your shower and cover the wound with clean gauze until your nurse arrives 4. Apply Vashe soak: apply Vashe moistened gauze to the wound and allow to soak for 5-10 minutes, then remove and wipe the wound clean 5.Sprinkle the miconazole (anti-fungal powder) to groin skin folds 6. Skin prep and mastisol to the elle-wound 7. Apply Goldie's seal to distal aspect of wound 8. Window wound with wound vac drape 9. Lightly pack wound with Simplace black foam 10. Secure with clear vac drape and attach suction disc tracked to right upper anterior thigh 11. Pad between vac tubing and patients skin To give your wound the best chance to heal: - Eat three balanced meals daily focusing on the protein - Control swelling by elevating the extremity above your heart - Complete your wound care instructions - Vitamin C 500 mg twice daily - Multiple Vitamin Daily - Drink a protein shake daily Report any of the following changes [phone] or go to the Emergency Department: Fever or chills Increased drainage Green or yellow drainage Foul odor Increased pain Hardness around the wound Redness, warmth or swelling of the surrounding tissue Color change to the woun Problem:SN Integumentary/Wounds Goal:Patient/Caregive r will have improved healing and be free of signs and symptoms of complications Completed Completed. Patient did tolerate well. Patient verbalized independence in removing wound vac in case of malfunction, applying wet to dry dressing, and calling [facility] Triage department to report wound vac off. Verified wet to dry dressing supplies in home. Wound VAC: Instruct on maintenance of Negative Pressure Wound Therapy Machine Problem:SN Integumentary/Wounds Goal:Patient/Caregive r will have improved healing and be free of signs and symptoms of complications Scheduled Instruct and educate on knowledge deficits Problem:SN Learning Assessment Goal:Demonstrate understanding of education Completed patient verbalize and/or demonstrate understanding of nursing education completed today. Education methods include: verbal cues. Further education required to improve knowledge and compliance with fall prevention/home safety strategies, incision/wound care management, medication management and nutrition. documented in this encounter [facility]'s home Plan of care note* Visit Details Visit Type -SN ROUTINE Discipline -Assisted Problems Problem Description Start Date Status Goals Interve ntions Medication Education Disciplines: Skilled Services 02/11/2023 Active 1 goal linked to scheduled/document ed intervention 1 goal intervention scheduled/document ed in this visit Sepsis Disciplines: Skilled Services 02/11/2023 Active 1 goal linked to scheduled/document ed intervention 1 goal intervention scheduled/document ed in this visit Physician Specific Parameters Disciplines: Skilled Services 02/11/2023 Active 1 goal linked to scheduled/document ed intervention 1 goal intervention scheduled/document ed in this visit Risk for Falls Disciplines: Skilled Services 02/11/2023 Active 1 goal linked to scheduled/document ed intervention 1 goal intervention scheduled/document ed in this visit Oxygen Disciplines: Skilled Services 02/11/2023 Active 1 goal linked to scheduled/document ed intervention 1 goal intervention scheduled/document ed in this visit Nutrition/Hydrati on Disciplines: Skilled Services 02/11/2023 Active 1 goal linked to scheduled/document ed intervention 1 goal intervention scheduled/document ed in this visit Discharge Disciplines: Skilled Services 02/11/2023 Active 1 goal linked to scheduled/document ed intervention 1 goal intervention scheduled/document ed in this visit SN Respiratory Disease Disciplines: SN 02/11/2023 Active 1 goal linked to scheduled/document ed intervention 1 goal intervention scheduled/document ed in this visit SN Integumentary/Wou nds Disciplines: SN 02/11/2023 Active 1 goal linked to scheduled/document ed intervention 4 goal interventions scheduled/document ed in this visit SN Learning Assessment Disciplines: 02/11/2023 Active 1 goal linked to scheduled/document ed intervention 1 goal intervention scheduled/document ed in this visit Goals Goal Associated Problem Outcome Goal Met? Visit Notes Patient/caregiver will demonstrate ability to obtain, store, identify and administer ordered medications, keep accurate medication list in home, and adhere to medication schedule Description: Patient/caregiver will demonstrate ability to obtain, store, identify and administer ordered medications, keep accurate medication list in home, and adhere to medication schedule by 04/11/23. Medication Education No Patient/caregiver will be able to identify and report symptoms of sepsis Description: Patient/caregiver will be able to identify signs/symptoms of sepsis infection and will verbalize actions to take if suspected by 04/11/23. Sepsis No Patient to maintain parameters within physician-specified ranges throughout certification period Physician Specific Parameters No Manage Risk for falls Description: Patient/caregiver will verbalize knowledge of individualized fall prevention strategies by 04/11/23. Risk for Falls No Manage oxygen Description: Patient/caregiver will use oxygen safely and effectively in home by verbalizing and demonstrating oxygen safety by 04/11/23. Oxygen No Manage Nutrition/Hydration Description: Patient/caregiver will verbalize/demonstrate knowledge of prescribed diet and/or healthy nutrition to be achieved by 03/23/23. Nutrition/Hydration No Manage discharge planning Description: Patient/caregiver will verbalize understanding of ongoing discharge plan provided related to disease management, arrangements for outpatient and/or community services, obtaining medications, supplies, and DME, as needed throughout certification period. Discharge No Improved management of respiratory condition Description: Improve respiratory management as evidenced by patient/caregiver's ability to teach back strategies for improving respiratory status by 03/23/23. SN Respiratory Disease No Patient/Caregiver will have improved healing and be free of signs and symptoms of complications Description: Patient/caregiver will verbalize management strategies to promote wound healing & prevent complications as evidenced by improved healing & no complications by 04/11/23. SN Integumentary/Wounds No Demonstrate understanding of education Description: Patient and/or caregiver will verbalize understanding of educational instruction provided throughout certification period. SN Learning Assessment No Interventions Intervention Associated Problem/Goal Status Variance Visit Notes Medication Education Description: Evaluate/instruct patient/caregiver on obtaining, storing, identifying and administering ordered medications as well as keeping accurate medication list in the home and adhereing to medication schedule Problem:Medication Education Goal:Patient/caregive r will demonstrate ability to obtain, store, identify and administer ordered medications, keep accurate medication list in home, and adhere to medication schedule Completed Patient and Caregiver instructed on importance of keeping accurate medication list in home, adhering to medication schedule and Medication, route, dose, frequency, purpose, and side effects of all medications. Sepsis aftercare Description: Patient recenty treated for sepsis related to Right groin abscess. Educate on signs/symptoms of recurrent infection and actions to take if suspected. Problem:Sepsis Goal:Patient/caregive r will be able to identify and report symptoms of sepsis Completed Patient instructed on signs/symptoms of recurrent infection including fever >101, decreased urine output and new onset change in mentation status. SPO2 Description: Notify Jose Daniel Mane CNP if pulse ox is <92% at rest. Problem:Physician Specific Parameters Goal:Patient to maintain parameters within physician-specified ranges throughout certification period Completed Instruct on individual fall risk factors and strategies to prevent falls and injuries caused by falls. Problem:Risk for Falls Goal:Manage Risk for falls Completed SN: Patient and Caregiver instructed on Eliminating Environmental Hazards: Keep pathways clear, Keep pets out of pathways, Remove unsafe rugs, Move furniture from pathways and Keep rooms and walkways well lit Managing Cognitive Impairment/Depression : Recommended use of visual cues/reminders for safety Instruct on fire safety and safe and effective use of oxygen in the home Problem:Oxygen Goal:Manage oxygen Completed patient instructed on: findings of safety risk assessment, causes of fires, firerisks for neighboring residences and buildings, precautions that can prevent fire-related injuries and oxygen safety as outlined in Home Care Patient Handbook patient demonstrate compliance with safety recommendations. Define patient s appetite/hydration status and implement strategies to improve compliance with prescribed diet and/or healthy nutrition. Problem:Nutrition/Hyd ration Goal:Manage Nutrition/Hydration Completed instructed patient on implementing strategies to comply with prescribed diet, healthy nutrition and adequate hydration Instruct on ongoing discharge plan Problem:Discharge Goal:Manage discharge planning Completed Ongoing Discharge plan: Discharge plan discussed with patient including frequency and duration for home SN and plan for transition to: live independently at home without ongoing services. Instruct on respiratory disease process and management of condition Description: Patient has following respiratory diagnosis(es): chronic respiratory failure Problem:SN Respiratory Disease Goal:Improved management of respiratory condition Completed patient assessed and instructed on self monitoring & symptom reporting. Wound VAC: Instruct on maintenance of Negative Pressure Wound Therapy Machine Problem:SN Integumentary/Wounds Goal:Patient/Caregive r will have improved healing and be free of signs and symptoms of complications Completed patient instructed on the following: how to turn the machine on and off, how to charge the battery, how to change the canister and proper storage and cleaning of supplies. Instruct patient/caregiver healing process and management measures to promote healing and avoid complications Problem:SN Integumentary/Wounds Goal:Patient/Caregive r will have improved healing and be free of signs and symptoms of complications Completed patient instructed on the following: healing process, signs and symptoms of infection and importance of good nutrition. Instruct Patient/Caregiver on wound/incision care procedure as ordered by physician Problem:SN Integumentary/Wounds Goal:Patient/Caregive r will have improved healing and be free of signs and symptoms of complications Completed patient instructed on wound care as ordered by Physician. Wound Vac: Perform Negative Pressure Wound Therapy Description: Per update Elroy NinaPaul CIRCULAR SAW EDGE FUSER: 03/09/23 Right groin- (to begin 03/02/23) Keep your Wound Vac dressing dry and intact until your next dressing change. If your Wound Vac fails, please remember that you have 2 hours to get it running. At the 2 hour bridgett please remove the entire dressing, wound packing, and all of the elle-wound dressing and begin the alternate dressing as written below. ALTERNATE DRESSING IF WOUND VAC MUST BE REMOVED: Gather all supplies needed. Apply Vashe moistened gauze to the wound and allow to soak for 5-10 minutes, then remove and wipe the wound clean. Sprinkle Miconazole powder to groin skin folds twice daily Apply Calcium Alginate Ag (Silver Alginate) - felt like material to wound bed Cover with [place] SAP silicone bordered foam dressing . Change your dressing every other day and as needed to maintain a clean, dry, intact dressing Wound vac settings 150 mmhg negative pressure High intensity Continuous suction Change dressings M-W-F 2. Gather all supplies needed. 3. Shower on the days that your home care nurse is visiting; keep the wound covered with your dressing while showering, then remove the dressing after your shower and cover the wound with clean gauze until your nurse arrives 4. Apply Vashe soak: apply Vashe moistened gauze to the wound and allow to soak for 5-10 minutes, then remove and wipe the wound clean 5.Sprinkle the miconazole (anti-fungal powder) to groin skin folds 6. Skin prep and mastisol to the elle-wound 7. Apply Goldie's seal to distal aspect of wound 8. Window wound with wound vac drape 9. Lightly pack wound with Simplace black foam 10. Secure with clear vac drape and attach suction disc tracked to right upper anterior thigh 11. Pad between vac tubing and patients skin To give your wound the best chance to heal: - Eat three balanced meals daily focusing on the protein - Control swelling by elevating the extremity above your heart - Complete your wound care instructions - Vitamin C 500 mg twice daily - Multiple Vitamin Daily - Drink a protein shake daily Report any of the following changes [phone] or go to the Emergency Department: Fever or chills Increased drainage Green or yellow drainage Foul odor Increased pain Hardness around the wound Redness, warmth or swelling of the surrounding tissue Color change to the woun Problem:SN Integumentary/Wounds Goal:Patient/Caregive r will have improved healing and be free of signs and symptoms of complications Completed Completed. Patient did tolerate well. Patient instructed on removing wound vac in case of malfunction, applying wet to dry dressing, and calling [facility] Triage department to report wound vac off. Verified wet to dry dressing supplies in home. Instruct and educate on knowledge deficits Problem:SN Learning Assessment Goal:Demonstrate understanding of education Completed patient verbalize and/or demonstrate understanding of nursing education completed today. Education methods include: verbal cues and teach back. Further education required to improve knowledge and compliance with fall prevention/home safety strategies, incision/wound care management, medication management, nutrition, oxygen safety, pain management and pulmonary disease management. [facility] Visit Details Visit Type -SN UNMADE VISIT Discipline -Assisted Problems Problem Description Start Date Status Goals Interve ntions SN Integumentary/ Wounds Disciplines: SN 02/11/2023 Active 1 goal linked to scheduled/documente d intervention 1 goal intervention scheduled/documente d in this visit Goals Goal Associated Problem Outcome Goal Met? Visit Notes Patient/Caregiver will have improved healing and be free of signs and symptoms of complications Description: Patient/caregiver will verbalize management strategies to promote wound healing & prevent complications as evidenced by improved healing & no complications by 04/11/23. SN Integumentary/Wounds No Interventions Intervention Associated Problem/Goal Status Variance Visit Notes Wound VAC: Instruct on maintenance of Negative Pressure Wound Therapy Machine Problem:SN Integumentary/Wounds Goal:Patient/Caregiver will have improved healing and be free of signs and symptoms of complications Scheduled [facility] Visit Details Visit Type -SN ROUTINE Discipline -Assisted Problems Problem Description Start Date Status Goals Interve ntions Medication Education Disciplines: Skilled Services 02/11/2023 Active 1 goal linked to scheduled/document ed intervention 1 goal intervention scheduled/document ed in this visit Sepsis Disciplines: Skilled Services 02/11/2023 Active 1 goal linked to scheduled/document ed intervention 1 goal intervention scheduled/document ed in this visit Physician Specific Parameters Disciplines: Skilled Services 02/11/2023 Active 1 goal linked to scheduled/document ed intervention 1 goal intervention scheduled/document ed in this visit Risk for Falls Disciplines: Skilled Services 02/11/2023 Active 1 goal linked to scheduled/document ed intervention 1 goal intervention scheduled/document ed in this visit Nutrition/Hydrati on Disciplines: Skilled Services 02/11/2023 Active 1 goal linked to scheduled/document ed intervention 1 goal intervention scheduled/document ed in this visit SN Respiratory Disease Disciplines: SN 02/11/2023 Active 1 goal linked to scheduled/document ed intervention 1 goal intervention scheduled/document ed in this visit SN Integumentary/Wou nds Disciplines: SN 02/11/2023 Active 1 goal linked to scheduled/document ed intervention 3 goal interventions scheduled/document ed in this visit SN Learning Assessment Disciplines: SN 02/11/2023 Active 1 goal linked to scheduled/document ed intervention 1 goal intervention scheduled/document ed in this visit Goals Goal Associated Problem Outcome Goal Met? Visit Notes Patient/caregiver will demonstrate ability to obtain, store, identify and administer ordered medications, keep accurate medication list in home, and adhere to medication schedule Description: Patient/caregiver will demonstrate ability to obtain, store, identify and administer ordered medications, keep accurate medication list in home, and adhere to medication schedule by 04/11/23. Medication Education In Progress No Patient/caregiver will be able to identify and report symptoms of sepsis Description: Patient/caregiver will be able to identify signs/symptoms of sepsis infection and will verbalize actions to take if suspected by 04/11/23. Sepsis In Progress No Patient to maintain parameters within physician-specified ranges throughout certification period Physician Specific Parameters In Progress No Manage Risk for falls Description: Patient/caregiver will verbalize knowledge of individualized fall prevention strategies by 04/11/23. Risk for Falls In Progress No Manage Nutrition/Hydration Description: Patient/caregiver will verbalize/demonstrate knowledge of prescribed diet and/or healthy nutrition to be achieved by 03/23/23. Nutrition/Hydration In Progress No Improved management of respiratory condition Description: Improve respiratory management as evidenced by patient/caregiver's ability to teach back strategies for improving respiratory status by 03/23/23. SN Respiratory Disease In Progress No Patient/Caregiver will have improved healing and be free of signs and symptoms of complications Description: Patient/caregiver will verbalize management strategies to promote wound healing & prevent complications as evidenced by improved healing & no complications by 04/11/23. SN Integumentary/Wounds In Progress No Demonstrate understanding of education Description: Patient and/or caregiver will verbalize understanding of educational instruction provided throughout certification period. SN Learning Assessment In Progress No Interventions Intervention Associated Problem/Goal Status Variance Visit Notes Medication Education Description: Evaluate/instruct patient/caregiver on obtaining, storing, identifying and administering ordered medications as well as keeping accurate medication list in the home and adhereing to medication schedule Problem:Medication Education Goal:Patient/caregive r will demonstrate ability to obtain, store, identify and administer ordered medications, keep accurate medication list in home, and adhere to medication schedule Completed Patient instructed on adhering to medication schedule. Sepsis aftercare Description: Patient recenty treated for sepsis related to Right groin abscess. Educate on signs/symptoms of recurrent infection and actions to take if suspected. Problem:Sepsis Goal:Patient/caregive r will be able to identify and report symptoms of sepsis Completed Patient instructed on signs/symptoms of recurrent infection including fever >101, new or worsening onset of pain, decreased urine output and significant change in patient condition. SPO2 Description: Notify Jose Daniel Mane CNP if pulse ox is <92% at rest. Problem:Physician Specific Parameters Goal:Patient to maintain parameters within physician-specified ranges throughout certification period Completed Instruct on individual fall risk factors and strategies to prevent falls and injuries caused by falls. Problem:Risk for Falls Goal:Manage Risk for falls Completed SN: Patient instructed on Eliminating Environmental Hazards: Keep pathways clear Define patient s appetite/hydration status and implement strategies to improve compliance with prescribed diet and/or healthy nutrition. Problem:Nutrition/Hyd ration Goal:Manage Nutrition/Hydration Completed reinforced patient on implementing strategies to comply with healthy nutrition and adequate hydration Instruct on respiratory disease process and management of condition Description: Patient has following respiratory diagnosis(es): chronic respiratory failure Problem:SN Respiratory Disease Goal:Improved management of respiratory condition Completed patient assessed and reinforced on self monitoring & symptom reporting. Instruct patient/caregiver healing process and management measures to promote healing and avoid complications Problem:SN Integumentary/Wounds Goal:Patient/Caregive r will have improved healing and be free of signs and symptoms of complications Completed patient instructed on the following: healing process, signs and symptoms of infection and importance of good nutrition. Wound Vac: Perform Negative Pressure Wound Therapy Description: Per update Elroy Amaya [employer]CULAR SAW EDGE FUSER: 03/09/23 Right groin- (to begin 03/02/23) Keep your Wound Vac dressing dry and intact until your next dressing change. If your Wound Vac fails, please remember that you have 2 hours to get it running. At the 2 hour bridgett please remove the entire dressing, wound packing, and all of the elle-wound dressing and begin the alternate dressing as written below. ALTERNATE DRESSING IF WOUND VAC MUST BE REMOVED: Gather all supplies needed. Apply Vashe moistened gauze to the wound and allow to soak for 5-10 minutes, then remove and wipe the wound clean. Sprinkle Miconazole powder to groin skin folds twice daily Apply Calcium Alginate Ag (Silver Alginate) - felt like material to wound bed Cover with [place] SAP silicone bordered foam dressing . Change your dressing every other day and as needed to maintain a clean, dry, intact dressing Wound vac settings 150 mmhg negative pressure High intensity Continuous suction Change dressings M-W-F 2. Gather all supplies needed. 3. Shower on the days that your home care nurse is visiting; keep the wound covered with your dressing while showering, then remove the dressing after your shower and cover the wound with clean gauze until your nurse arrives 4. Apply Vashe soak: apply Vashe moistened gauze to the wound and allow to soak for 5-10 minutes, then remove and wipe the wound clean 5.Sprinkle the miconazole (anti-fungal powder) to groin skin folds 6. Skin prep and mastisol to the elle-wound 7. Apply Goldie's seal to distal aspect of wound 8. Window wound with wound vac drape 9. Lightly pack wound with Simplace black foam 10. Secure with clear vac drape and attach suction disc tracked to right upper anterior thigh 11. Pad between vac tubing and patients skin To give your wound the best chance to heal: - Eat three balanced meals daily focusing on the protein - Control swelling by elevating the extremity above your heart - Complete your wound care instructions - Vitamin C 500 mg twice daily - Multiple Vitamin Daily - Drink a protein shake daily Report any of the following changes [phone] or go to the Emergency Department: Fever or chills Increased drainage Green or yellow drainage Foul odor Increased pain Hardness around the wound Redness, warmth or swelling of the surrounding tissue Color change to the woun Problem:SN Integumentary/Wounds Goal:Patient/Caregive r will have improved healing and be free of signs and symptoms of complications Completed Completed. Patient did tolerate well. Patient instructed on removing wound vac in case of malfunction, applying wet to dry dressing, and calling [facility] Triage department to report wound vac off. Verified wet to dry dressing supplies in home. Wound VAC: Instruct on maintenance of Negative Pressure Wound Therapy Machine Problem:SN Integumentary/Wounds Goal:Patient/Caregive r will have improved healing and be free of signs and symptoms of complications Scheduled Instruct and educate on knowledge deficits Problem:SN Learning Assessment Goal:Demonstrate understanding of education Completed patient verbalize and/or demonstrate understanding of nursing education completed today. Education methods include: verbal cues. Further education required to improve knowledge and compliance with fall prevention/home safety strategies, incision/wound care management, medication management, nutrition and pulmonary disease management. documented in this encounter [facility]'s home Plan of care note* Visit Details Visit Type -SN ROUTINE Discipline -Assisted Problems Problem Description Start Date Status Goals Interve ntions Medication Education Disciplines: Skilled Services 02/11/2023 Active 1 goal linked to scheduled/document ed intervention 1 goal intervention scheduled/document ed in this visit Sepsis Disciplines: Skilled Services 02/11/2023 Active 1 goal linked to scheduled/document ed intervention 1 goal intervention scheduled/document ed in this visit Physician Specific Parameters Disciplines: Skilled Services 02/11/2023 Active 1 goal linked to scheduled/document ed intervention 1 goal intervention scheduled/document ed in this visit Risk for Falls Disciplines: Skilled Services 02/11/2023 Active 1 goal linked to scheduled/document ed intervention 1 goal intervention scheduled/document ed in this visit Nutrition/Hydrati on Disciplines: Skilled Services 02/11/2023 Active 1 goal linked to scheduled/document ed intervention 1 goal intervention scheduled/document ed in this visit SN Respiratory Disease Disciplines: SN 02/11/2023 Active 1 goal linked to scheduled/document ed intervention 1 goal intervention scheduled/document ed in this visit SN Integumentary/Wou nds Disciplines: SN 02/11/2023 Active 1 goal linked to scheduled/document ed intervention 3 goal interventions scheduled/document ed in this visit SN Learning Assessment Disciplines: 02/11/2023 Active 1 goal linked to scheduled/document ed intervention 1 goal intervention scheduled/document ed in this visit Goals Goal Associated Problem Outcome Goal Met? Visit Notes Patient/caregiver will demonstrate ability to obtain, store, identify and administer ordered medications, keep accurate medication list in home, and adhere to medication schedule Description: Patient/caregiver will demonstrate ability to obtain, store, identify and administer ordered medications, keep accurate medication list in home, and adhere to medication schedule by 04/11/23. Medication Education No Patient/caregiver will be able to identify and report symptoms of sepsis Description: Patient/caregiver will be able to identify signs/symptoms of sepsis infection and will verbalize actions to take if suspected by 04/11/23. Sepsis No Patient to maintain parameters within physician-specified ranges throughout certification period Physician Specific Parameters No Manage Risk for falls Description: Patient/caregiver will verbalize knowledge of individualized fall prevention strategies by 04/11/23. Risk for Falls No Manage Nutrition/Hydration Description: Patient/caregiver will verbalize/demonstrate knowledge of prescribed diet and/or healthy nutrition to be achieved by 03/23/23. Nutrition/Hydration No Improved management of respiratory condition Description: Improve respiratory management as evidenced by patient/caregiver's ability to teach back strategies for improving respiratory status by 03/23/23. SN Respiratory Disease No Patient/Caregiver will have improved healing and be free of signs and symptoms of complications Description: Patient/caregiver will verbalize management strategies to promote wound healing & prevent complications as evidenced by improved healing & no complications by 04/11/23. SN Integumentary/Wounds No Demonstrate understanding of education Description: Patient and/or caregiver will verbalize understanding of educational instruction provided throughout certification period. SN Learning Assessment No Interventions Intervention Associated Problem/Goal Status Variance Visit Notes Medication Education Description: Evaluate/instruct patient/caregiver on obtaining, storing, identifying and administering ordered medications as well as keeping accurate medication list in the home and adhereing to medication schedule Problem:Medication Education Goal:Patient/caregive r will demonstrate ability to obtain, store, identify and administer ordered medications, keep accurate medication list in home, and adhere to medication schedule Completed Patient instructed on adhering to medication schedule. Sepsis aftercare Description: Patient recenty treated for sepsis related to Right groin abscess. Educate on signs/symptoms of recurrent infection and actions to take if suspected. Problem:Sepsis Goal:Patient/caregive r will be able to identify and report symptoms of sepsis Completed Patient instructed on signs/symptoms of recurrent infection including fever >101, new or worsening onset of pain and decreased urine output. SPO2 Description: Notify Jose Daniel Mane CNP if pulse ox is <92% at rest. Problem:Physician Specific Parameters Goal:Patient to maintain parameters within physician-specified ranges throughout certification period Completed Instruct on individual fall risk factors and strategies to prevent falls and injuries caused by falls. Problem:Risk for Falls Goal:Manage Risk for falls Completed SN: Patient instructed on Eliminating Environmental Hazards: Keep pathways clear Define patient s appetite/hydration status and implement strategies to improve compliance with prescribed diet and/or healthy nutrition. Problem:Nutrition/Hyd ration Goal:Manage Nutrition/Hydration Completed reinforced patient on implementing strategies to comply with healthy nutrition and adequate hydration Instruct on respiratory disease process and management of condition Description: Patient has following respiratory diagnosis(es): chronic respiratory failure Problem:SN Respiratory Disease Goal:Improved management of respiratory condition Completed patient assessed and reinforced on self monitoring & symptom reporting. Instruct patient/caregiver healing process and management measures to promote healing and avoid complications Problem:SN Integumentary/Wounds Goal:Patient/Caregive r will have improved healing and be free of signs and symptoms of complications Completed patient instructed on the following: healing process. Wound Vac: Perform Negative Pressure Wound Therapy Description: Per update Elroy Amaya [employer] SAW ED[employer] FUSER: 03/09/23 Right groin- (to begin 03/02/23) Keep your Wound Vac dressing dry and intact until your next dressing change. If your Wound Vac fails, please remember that you have 2 hours to get it running. At the 2 hour bridgett please remove the entire dressing, wound packing, and all of the elle-wound dressing and begin the alternate dressing as written below. ALTERNATE DRESSING IF WOUND VAC MUST BE REMOVED: Gather all supplies needed. Apply Vashe moistened gauze to the wound and allow to soak for 5-10 minutes, then remove and wipe the wound clean. Sprinkle Miconazole powder to groin skin folds twice daily Apply Calcium Alginate Ag (Silver Alginate) - felt like material to wound bed Cover with [place] SAP silicone bordered foam dressing . Change your dressing every other day and as needed to maintain a clean, dry, intact dressing Wound vac settings 150 mmhg negative pressure High intensity Continuous suction Change dressings -- 2. Gather all supplies needed. 3. Shower on the days that your home care nurse is visiting; keep the wound covered with your dressing while showering, then remove the dressing after your shower and cover the wound with clean gauze until your nurse arrives 4. Apply Vashe soak: apply Vashe moistened gauze to the wound and allow to soak for 5-10 minutes, then remove and wipe the wound clean 5.Sprinkle the miconazole (anti-fungal powder) to groin skin folds 6. Skin prep and mastisol to the elle-wound 7. Apply Goldie's seal to distal aspect of wound 8. Window wound with wound vac drape 9. Lightly pack wound with Simplace black foam 10. Secure with clear vac drape and attach suction disc tracked to right upper anterior thigh 11. Pad between vac tubing and patients skin To give your wound the best chance to heal: - Eat three balanced meals daily focusing on the protein - Control swelling by elevating the extremity above your heart - Complete your wound care instructions - Vitamin C 500 mg twice daily - Multiple Vitamin Daily - Drink a protein shake daily Report any of the following changes [phone] or go to the Emergency Department: Fever or chills Increased drainage Green or yellow drainage Foul odor Increased pain Hardness around the wound Redness, warmth or swelling of the surrounding tissue Color change to the woun Problem:SN Integumentary/Wounds Goal:Patient/Caregive r will have improved healing and be free of signs and symptoms of complications Completed Completed. Patient did tolerate well. Patient verbalized independence in removing wound vac in case of malfunction, applying wet to dry dressing, and calling [facility] Triage department to report wound vac off. Verified wet to dry dressing supplies in home. Wound VAC: Instruct on maintenance of Negative Pressure Wound Therapy Machine Problem:SN Integumentary/Wounds Goal:Patient/Caregive r will have improved healing and be free of signs and symptoms of complications Scheduled Instruct and educate on knowledge deficits Problem:SN Learning Assessment Goal:Demonstrate understanding of education Completed patient verbalize and/or demonstrate understanding of nursing education completed today. Education methods include: verbal cues. Further education required to improve knowledge and compliance with fall prevention/home safety strategies, incision/wound care management, medication management and nutrition. [facility] Visit Details Visit Type -SN ROUTINE Discipline -Assisted Problems Problem Description Start Date Status Goals Interve ntions Medication Education Disciplines: Skilled Services 02/11/2023 Active 1 goal linked to scheduled/document ed intervention 1 goal intervention scheduled/document ed in this visit Sepsis Disciplines: Skilled Services 02/11/2023 Active 1 goal linked to scheduled/document ed intervention 1 goal intervention scheduled/document ed in this visit Physician Specific Parameters Disciplines: Skilled Services 02/11/2023 Active 1 goal linked to scheduled/document ed intervention 1 goal intervention scheduled/document ed in this visit Risk for Falls Disciplines: Skilled Services 02/11/2023 Active 1 goal linked to scheduled/document ed intervention 1 goal intervention scheduled/document ed in this visit Nutrition/Hydrati on Disciplines: Skilled Services 02/11/2023 Active 1 goal linked to scheduled/document ed intervention 1 goal intervention scheduled/document ed in this visit SN Respiratory Disease Disciplines: SN 02/11/2023 Active 1 goal linked to scheduled/document ed intervention 1 goal intervention scheduled/document ed in this visit SN Integumentary/Wou nds Disciplines: SN 02/11/2023 Active 1 goal linked to scheduled/document ed intervention 3 goal interventions scheduled/document ed in this visit SN Learning Assessment Disciplines: 02/11/2023 Active 1 goal linked to scheduled/document ed intervention 1 goal intervention scheduled/document ed in this visit Infection Control Disciplines: Skilled Services 03/19/2023 Active 1 goal linked to scheduled/document ed intervention 1 goal intervention scheduled/document ed in this visit Goals Goal Associated Problem Outcome Goal Met? Visit Notes Patient/caregiver will demonstrate ability to obtain, store, identify and administer ordered medications, keep accurate medication list in home, and adhere to medication schedule Description: Patient/caregiver will demonstrate ability to obtain, store, identify and administer ordered medications, keep accurate medication list in home, and adhere to medication schedule by 04/11/23. Medication Education No Patient/caregiver will be able to identify and report symptoms of sepsis Description: Patient/caregiver will be able to identify signs/symptoms of sepsis infection and will verbalize actions to take if suspected by 04/11/23. Sepsis No Patient to maintain parameters within physician-specified ranges throughout certification period Physician Specific Parameters No Manage Risk for falls Description: Patient/caregiver will verbalize knowledge of individualized fall prevention strategies by 04/11/23. Risk for Falls No Manage Nutrition/Hydration Description: Patient/caregiver will verbalize/demonstrate knowledge of prescribed diet and/or healthy nutrition to be achieved by 03/23/23. Nutrition/Hydration No Improved management of respiratory condition Description: Improve respiratory management as evidenced by patient/caregiver's ability to teach back strategies for improving respiratory status by 03/23/23. SN Respiratory Disease No Patient/Caregiver will have improved healing and be free of signs and symptoms of complications Description: Patient/caregiver will verbalize management strategies to promote wound healing & prevent complications as evidenced by improved healing & no complications by 04/11/23. SN Integumentary/Wounds No Demonstrate understanding of education Description: Patient and/or caregiver will verbalize understanding of educational instruction provided throughout certification period. SN Learning Assessment No Prevent transmission of communicable diseases Description: Patient, caregivers, and staff will maintain precautions while infection present. Infection Control No Interventions Intervention Associated Problem/Goal Status Variance Visit Notes Medication Education Description: Evaluate/instruct patient/caregiver on obtaining, storing, identifying and administering ordered medications as well as keeping accurate medication list in the home and adhereing to medication schedule Problem:Medication Education Goal:Patient/caregive r will demonstrate ability to obtain, store, identify and administer ordered medications, keep accurate medication list in home, and adhere to medication schedule Completed Patient instructed on adhering to medication schedule. Sepsis aftercare Description: Patient recenty treated for sepsis related to Right groin abscess. Educate on signs/symptoms of recurrent infection and actions to take if suspected. Problem:Sepsis Goal:Patient/caregive r will be able to identify and report symptoms of sepsis Completed Patient instructed on signs/symptoms of recurrent infection including fever >101 and new or worsening onset of pain. SPO2 Description: Notify Jose Daniel Mane CNP if pulse ox is <92% at rest. Problem:Physician Specific Parameters Goal:Patient to maintain parameters within physician-specified ranges throughout certification period Completed Instruct on individual fall risk factors and strategies to prevent falls and injuries caused by falls. Problem:Risk for Falls Goal:Manage Risk for falls Completed SN: Patient instructed on Eliminating Environmental Hazards: Keep pathways clear Define patient s appetite/hydration status and implement strategies to improve compliance with prescribed diet and/or healthy nutrition. Problem:Nutrition/Hyd ration Goal:Manage Nutrition/Hydration Completed reinforced patient on implementing strategies to comply with healthy nutrition and adequate hydration Instruct on respiratory disease process and management of condition Description: Patient has following respiratory diagnosis(es): chronic respiratory failure Problem:SN Respiratory Disease Goal:Improved management of respiratory condition Completed patient assessed and reinforced on self monitoring & symptom reporting. Instruct patient/caregiver healing process and management measures to promote healing and avoid complications Problem:SN Integumentary/Wounds Goal:Patient/Caregive r will have improved healing and be free of signs and symptoms of complications Completed patient instructed on the following: healing process. Wound Vac: Perform Negative Pressure Wound Therapy Description: Per update Elroy Amaya [employer]W [employer] FUSER: 03/09/23 Right groin- (to begin 03/02/23) Keep your Wound Vac dressing dry and intact until your next dressing change. If your Wound Vac fails, please remember that you have 2 hours to get it running. At the 2 hour bridgett please remove the entire dressing, wound packing, and all of the elle-wound dressing and begin the alternate dressing as written below. ALTERNATE DRESSING IF WOUND VAC MUST BE REMOVED: Gather all supplies needed. Apply Vashe moistened gauze to the wound and allow to soak for 5-10 minutes, then remove and wipe the wound clean. Sprinkle Miconazole powder to groin skin folds twice daily Apply Calcium Alginate Ag (Silver Alginate) - felt like material to wound bed Cover with [place] SAP silicone bordered foam dressing . Change your dressing every other day and as needed to maintain a clean, dry, intact dressing Wound vac settings 150 mmhg negative pressure High intensity Continuous suction Change dressings M-W-F 2. Gather all supplies needed. 3. Shower on the days that your home care nurse is visiting; keep the wound covered with your dressing while showering, then remove the dressing after your shower and cover the wound with clean gauze until your nurse arrives 4. Apply Vashe soak: apply Vashe moistened gauze to the wound and allow to soak for 5-10 minutes, then remove and wipe the wound clean 5.Sprinkle the miconazole (anti-fungal powder) to groin skin folds 6. Skin prep and mastisol to the elle-wound 7. Apply Goldie's seal to distal aspect of wound 8. Window wound with wound vac drape 9. Lightly pack wound with Simplace black foam 10. Secure with clear vac drape and attach suction disc tracked to right upper anterior thigh 11. Pad between vac tubing and patients skin To give your wound the best chance to heal: - Eat three balanced meals daily focusing on the protein - Control swelling by elevating the extremity above your heart - Complete your wound care instructions - Vitamin C 500 mg twice daily - Multiple Vitamin Daily - Drink a protein shake daily Report any of the following changes [phone] or go to the Emergency Department: Fever or chills Increased drainage Green or yellow drainage Foul odor Increased pain Hardness around the wound Redness, warmth or swelling of the surrounding tissue Color change to the woun Problem:SN Integumentary/Wounds Goal:Patient/Caregive r will have improved healing and be free of signs and symptoms of complications Completed Completed. Patient did tolerate well. Patient verbalized independence in removing wound vac in case of malfunction, applying wet to dry dressing, and calling [facility] Triage department to report wound vac off. Verified wet to dry dressing supplies in home. Wound VAC: Instruct on maintenance of Negative Pressure Wound Therapy Machine Problem:SN Integumentary/Wounds Goal:Patient/Caregive r will have improved healing and be free of signs and symptoms of complications Scheduled Instruct and educate on knowledge deficits Problem:SN Learning Assessment Goal:Demonstrate understanding of education Completed patient verbalize and/or demonstrate understanding of nursing education completed today. Education methods include: verbal cues. Further education required to improve knowledge and compliance with fall prevention/home safety strategies, incision/wound care management, medication management, nutrition and pulmonary disease management. Specified Precautions for COVID-19: Contact, Droplet, plus eyewear Problem:Infection Control Goal:Prevent transmission of communicable diseases Completed COVID precautions maintained. Patient instructed on COVID-19 infection control and safety precautions: +Stay at home except to get medical care +When leaving home to get medical care +Avoid using public transportation +Call your doctor or other health care provider prior to your visit to inform them that you have or may have COVID-19 +Separate yourself from other people and animals in your home +Stay in a specific room and use a separate bathroom if available +Avoid sharing personal household items such as towels, cups, or eating utensils +Wash hands before and after caring for animals if no one else is able to care for them +Wear a face mask when you must be around other people or pets and when going out for medical care, +Discard disposable masks and gloves; wash cloth masks daily +Cover your coughs and sneezes with a tissue or cough/sneeze into your elbow +Clean your hands often with soap and water for at least 20 seconds or with an alcohol based hand art history instructor containing at least 60% alcohol, +Clean all high-touch surfaces every day such as counters, tabletops, doorknobs, phones, and bathroom fixtures, +Seek prompt medical attention if your illness is worsening, such as increased difficulty breathing, +Continue home isolation until your healthcare provider and state/local officials tell you to discontinue and Wear disposable gloves, if available, while handling soiled or contaminated items and wash laundry thoroughly +Always wash hands after removing gloves documented in this encounter [facility] Plan of care [facility]* Visit Details Visit Type -SN PRN VISIT Discipline -Assisted Problems Problem Description Start Date Status Goals Interve ntions Medication Education Disciplines: Skilled Services 02/11/2023 Active 1 goal linked to scheduled/document ed intervention 1 goal intervention scheduled/documente d in this visit Sepsis Disciplines: Skilled Services 02/11/2023 Active 1 goal linked to scheduled/document ed intervention 1 goal intervention scheduled/documente d in this visit Physician Specific Parameters Disciplines: Skilled Services 02/11/2023 Active 1 goal linked to scheduled/document ed intervention 1 goal intervention scheduled/documente d in this visit Risk for Falls Disciplines: Skilled Services 02/11/2023 Active 1 goal linked to scheduled/document ed intervention 1 goal intervention scheduled/documente d in this visit Oxygen Disciplines: Skilled Services 02/11/2023 Active 1 goal linked to scheduled/document ed intervention 1 goal intervention scheduled/documente d in this visit SN Integumentary/W ounds Disciplines: SN 02/11/2023 Active 1 goal linked to scheduled/document ed intervention 4 goal interventions scheduled/documente d in this visit SN Learning Assessment Disciplines: SN 02/11/2023 Active 1 goal linked to scheduled/document ed intervention 1 goal intervention scheduled/documente d in this visit Infection Control Disciplines: Skilled Services 03/19/2023 Active 1 goal linked to scheduled/document ed intervention 1 goal intervention scheduled/documente d in this visit Goals Goal Associated Problem Outcome Goal Met? Visit Notes Patient/caregiver will demonstrate ability to obtain, store, identify and administer ordered medications, keep accurate medication list in home, and adhere to medication schedule Description: Patient/caregiver will demonstrate ability to obtain, store, identify and administer ordered medications, keep accurate medication list in home, and adhere to medication schedule by 04/11/23. Medication Education No Patient/caregiver will be able to identify and report symptoms of sepsis Description: Patient/caregiver will be able to identify signs/symptoms of sepsis infection and will verbalize actions to take if suspected by 04/11/23. Sepsis No Patient to maintain parameters within physician-specified ranges throughout certification period Physician Specific Parameters No Manage Risk for falls Description: Patient/caregiver will verbalize knowledge of individualized fall prevention strategies by 04/11/23. Risk for Falls No Manage oxygen Description: Patient/caregiver will use oxygen safely and effectively in home by verbalizing and demonstrating oxygen safety by 04/11/23. Oxygen No Patient/Caregiver will have improved healing and be free of signs and symptoms of complications Description: Patient/caregiver will verbalize management strategies to promote wound healing & prevent complications as evidenced by improved healing & no complications by 04/11/23. SN Integumentary/Wounds No Demonstrate understanding of education Description: Patient and/or caregiver will verbalize understanding of educational instruction provided throughout certification period. SN Learning Assessment No Prevent transmission of communicable diseases Description: Patient, caregivers, and staff will maintain precautions while infection present. Infection Control No Interventions Intervention Associated Problem/Goal Status Variance Visit Notes Medication Education Description: Evaluate/instruct patient/caregiver on obtaining, storing, identifying and administering ordered medications as well as keeping accurate medication list in the home and adhereing to medication schedule Problem:Medication Education Goal:Patient/caregi maria c will demonstrate ability to obtain, store, identify and administer ordered medications, keep accurate medication list in home, and adhere to medication schedule Completed Patient and Caregiver instructed on importance of keeping accurate medication list in home, adhering to medication schedule and Medication, route, dose, frequency, purpose, and side effects of all medications. Sepsis aftercare Description: Patient recenty treated for sepsis related to Right groin abscess. Educate on signs/symptoms of recurrent infection and actions to take if suspected. Problem:Sepsis Goal:Patient/caregi maria c will be able to identify and report symptoms of sepsis Completed Patient instructed on signs/symptoms of recurrent infection including fever >101. SPO2 Description: Notify Jose Daniel Mane CNP if pulse ox is <92% at rest. Problem:Physician Specific Parameters Goal:Patient to maintain parameters within physician-specified ranges throughout certification period Completed Instruct on individual fall risk factors and strategies to prevent falls and injuries caused by falls. Problem:Risk for Falls Goal:Manage Risk for falls Completed SN: Patient and Caregiver instructed on Eliminating Environmental Hazards: Keep pathways clear, Keep pets out of pathways, Remove unsafe rugs, Move furniture from pathways and Keep rooms and walkways well lit Managing Cognitive Impairment/Depress ion: Recommended use of visual cues/reminders for safety Instruct on fire safety and safe and effective use of oxygen in the home Problem:Oxygen Goal:Manage oxygen Completed patient instructed on: findings of safety risk assessment, causes of fires, firerisks for neighboring residences and buildings, precautions that can prevent fire-related injuries and oxygen safety as outlined in Home Care Patient Handbook patient demonstrate compliance with safety recommendations. Instruct patient/caregiver healing process and management measures to promote healing and avoid complications Problem:SN Integumentary/Wound s Goal:Patient/Caregi maria c will have improved healing and be free of signs and symptoms of complications Completed patient instructed on the following: healing process, signs and symptoms of infection, importance of good nutrition. Instruct Patient/Caregiver on wound/incision care procedure as ordered by physician Problem:SN Integumentary/Wound s Goal:Patient/Caregi maria c will have improved healing and be free of signs and symptoms of complications Completed patient instructed on wound care as ordered by Physician. Wound Vac: Perform Negative Pressure Wound Therapy Description: Per update Elroy Amaya [employer] FUSER: 03/09/23 Right groin- (to begin 03/02/23) Keep your Wound Vac dressing dry and intact until your next dressing change. If your Wound Vac fails, please remember that you have 2 hours to get it running. At the 2 hour bridgett please remove the entire dressing, wound packing, and all of the elle-wound dressing and begin the alternate dressing as written below. ALTERNATE DRESSING IF WOUND VAC MUST BE REMOVED: Gather all supplies needed. Apply Vashe moistened gauze to the wound and allow to soak for 5-10 minutes, then remove and wipe the wound clean. Sprinkle Miconazole powder to groin skin folds twice daily Apply Calcium Alginate Ag (Silver Alginate) - felt like material to wound bed Cover with [place] SAP silicone bordered foam dressing . Change your dressing every other day and as needed to maintain a clean, dry, intact dressing Wound vac settings 150 mmhg negative pressure High intensity Continuous suction Change dressings M-W-F 2. Gather all supplies needed. 3. Shower on the days that your home care nurse is visiting; keep the wound covered with your dressing while showering, then remove the dressing after your shower and cover the wound with clean gauze until your nurse arrives 4. Apply Vashe soak: apply Vashe moistened gauze to the wound and allow to soak for 5-10 minutes, then remove and wipe the wound clean 5.Sprinkle the miconazole (anti-fungal powder) to groin skin folds 6. Skin prep and mastisol to the elle-wound 7. Apply Goldie's seal to distal aspect of wound 8. Window wound with wound vac drape 9. Lightly pack wound with [place] black foam 10. Secure with clear vac drape and attach suction disc tracked to right upper anterior thigh 11. Pad between vac tubing and patients skin To give your wound the best chance to heal: - Eat three balanced meals daily focusing on the protein - Control swelling by elevating the extremity above your heart - Complete your wound care instructions - Vitamin C 500 mg twice daily - Multiple Vitamin Daily - Drink a protein shake daily Report any of the following changes [phone] or go to the Emergency Department: Fever or chills Increased drainage Green or yellow drainage Foul odor Increased pain Hardness around the wound Redness, warmth or swelling of the surrounding tissue Color change to the woun Problem:SN Integumentary/Wound s Goal:Patient/Caregi maria c will have improved healing and be free of signs and symptoms of complications Completed Completed. Patient did tolerate well. Patient verbalized independence in removing wound vac in case of malfunction, applying wet to dry dressing, and calling [facility] Triage department to report wound vac off. Verified wet to dry dressing supplies in home. Wound VAC: Instruct on maintenance of Negative Pressure Wound Therapy Machine Problem:SN Integumentary/Wound s Goal:Patient/Caregi maria c will have improved healing and be free of signs and symptoms of complications Scheduled with variance Patient independent Instruct and educate on knowledge deficits Problem:SN Learning Assessment Goal:Demonstrate understanding of education Completed patient verbalize and/or demonstrate understanding of nursing education completed today. Education methods include: verbal cues and teach back. Further education required to improve knowledge and compliance with fall prevention/home safety strategies, incision/wound care management, medication management, oxygen safety and pulmonary disease management. Specified Precautions for COVID-19: Contact, Droplet, plus eyewear Problem:Infection Control Goal:Prevent transmission of communicable diseases Completed COVID precautions maintained. Patient instructed on COVID-19 infection control and safety precautions: +Stay at home except to get medical care +When leaving home to get medical care +Avoid using public transportation +Call your doctor or other health care provider prior to your visit to inform them that you have or may have COVID-19 +Separate yourself from other people and animals in your home +Stay in a specific room and use a separate bathroom if available +Avoid sharing personal household items such as towels, cups, or eating utensils +Wash hands before and after caring for animals if no one else is able to care for them +Wear a face mask when you must be around other people or pets and when going out for medical care, +Discard disposable masks and gloves; wash cloth masks daily +Cover your coughs and sneezes with a tissue or cough/sneeze into your elbow +Clean your hands often with soap and water for at least 20 seconds or with an alcohol based hand art history instructor containing at least 60% alcohol, +Clean all high-touch surfaces every day such as counters, tabletops, doorknobs, phones, and bathroom fixtures, +Seek prompt medical attention if your illness is worsening, such as increased difficulty breathing, +Continue home isolation until your healthcare provider and state/local officials tell you to discontinue and Wear disposable gloves, if available, while handling soiled or contaminated items and wash laundry thoroughly +Always wash hands after removing gloves [facility] Visit Details Visit Type -SN UNMADE VISIT Discipline -Assisted Problems Problem Description Start Date Status Goals Interve ntions SN Integumentary/ Wounds Disciplines: SN 02/11/2023 Active 1 goal linked to scheduled/documente d intervention 1 goal intervention scheduled/documente d in this visit Goals Goal Associated Problem Outcome Goal Met? Visit Notes Patient/Caregiver will have improved healing and be free of signs and symptoms of complications Description: Patient/caregiver will verbalize management strategies to promote wound healing & prevent complications as evidenced by improved healing & no complications by 04/11/23. SN Integumentary/Wounds No Interventions Intervention Associated Problem/Goal Status Variance Visit Notes Wound VAC: Instruct on maintenance of Negative Pressure Wound Therapy Machine Problem:SN Integumentary/Wounds Goal:Patient/Caregiver will have improved healing and be free of signs and symptoms of complications Scheduled [facility] Visit Details Visit Type -SN ROUTINE Discipline -Assisted Problems Problem Description Start Date Status Goals Interve ntions Medication Education Disciplines: Skilled Services 02/11/2023 Active 1 goal linked to scheduled/document ed intervention 1 goal intervention scheduled/document ed in this visit Sepsis Disciplines: Skilled Services 02/11/2023 Active 1 goal linked to scheduled/document ed intervention 1 goal intervention scheduled/document ed in this visit Physician Specific Parameters Disciplines: Skilled Services 02/11/2023 Active 1 goal linked to scheduled/document ed intervention 1 goal intervention scheduled/document ed in this visit Risk for Falls Disciplines: Skilled Services 02/11/2023 Active 1 goal linked to scheduled/document ed intervention 1 goal intervention scheduled/document ed in this visit Nutrition/Hydrati on Disciplines: Skilled Services 02/11/2023 Active 1 goal linked to scheduled/document ed intervention 1 goal intervention scheduled/document ed in this visit SN Respiratory Disease Disciplines: SN 02/11/2023 Active 1 goal linked to scheduled/document ed intervention 1 goal intervention scheduled/document ed in this visit SN Integumentary/Wou nds Disciplines: SN 02/11/2023 Active 1 goal linked to scheduled/document ed intervention 2 goal interventions scheduled/document ed in this visit SN Learning Assessment Disciplines: SN 02/11/2023 Active 1 goal linked to scheduled/document ed intervention 1 goal intervention scheduled/document ed in this visit Infection Control Disciplines: Skilled Services 03/19/2023 Active 1 goal linked to scheduled/document ed intervention 1 goal intervention scheduled/document ed in this visit Goals Goal Associated Problem Outcome Goal Met? Visit Notes Patient/caregiver will demonstrate ability to obtain, store, identify and administer ordered medications, keep accurate medication list in home, and adhere to medication schedule Description: Patient/caregiver will demonstrate ability to obtain, store, identify and administer ordered medications, keep accurate medication list in home, and adhere to medication schedule by 04/11/23. Medication Education In Progress No Patient/caregiver will be able to identify and report symptoms of sepsis Description: Patient/caregiver will be able to identify signs/symptoms of sepsis infection and will verbalize actions to take if suspected by 04/11/23. Sepsis In Progress No Patient to maintain parameters within physician-specified ranges throughout certification period Physician Specific Parameters In Progress No Manage Risk for falls Description: Patient/caregiver will verbalize knowledge of individualized fall prevention strategies by 04/11/23. Risk for Falls In Progress No Manage Nutrition/Hydration Description: Patient/caregiver will verbalize/demonstrate knowledge of prescribed diet and/or healthy nutrition to be achieved by 03/23/23. Nutrition/Hydration In Progress No Improved management of respiratory condition Description: Improve respiratory management as evidenced by patient/caregiver's ability to teach back strategies for improving respiratory status by 03/23/23. SN Respiratory Disease In Progress No Patient/Caregiver will have improved healing and be free of signs and symptoms of complications Description: Patient/caregiver will verbalize management strategies to promote wound healing & prevent complications as evidenced by improved healing & no complications by 04/11/23. SN Integumentary/Wounds In Progress No Demonstrate understanding of education Description: Patient and/or caregiver will verbalize understanding of educational instruction provided throughout certification period. SN Learning Assessment In Progress No Prevent transmission of communicable diseases Description: Patient, caregivers, and staff will maintain precautions while infection present. Infection Control In Progress No Interventions Intervention Associated Problem/Goal Status Variance Visit Notes Medication Education Description: Evaluate/instruct patient/caregiver on obtaining, storing, identifying and administering ordered medications as well as keeping accurate medication list in the home and adhereing to medication schedule Problem:Medication Education Goal:Patient/caregive r will demonstrate ability to obtain, store, identify and administer ordered medications, keep accurate medication list in home, and adhere to medication schedule Completed Patient instructed on adhering to medication schedule. Sepsis aftercare Description: Patient recenty treated for sepsis related to Right groin abscess. Educate on signs/symptoms of recurrent infection and actions to take if suspected. Problem:Sepsis Goal:Patient/caregive r will be able to identify and report symptoms of sepsis Completed Patient instructed on signs/symptoms of recurrent infection including fever >101 and new or worsening onset of pain. SPO2 Description: Notify Jose Daniel Mane CNP if pulse ox is <92% at rest. Problem:Physician Specific Parameters Goal:Patient to maintain parameters within physician-specified ranges throughout certification period Completed Instruct on individual fall risk factors and strategies to prevent falls and injuries caused by falls. Problem:Risk for Falls Goal:Manage Risk for falls Completed SN: Patient instructed on Managing Impaired Functional Mobility: Caregiver to provide assist with: Steps Define patient s appetite/hydration status and implement strategies to improve compliance with prescribed diet and/or healthy nutrition. Problem:Nutrition/Hyd ration Goal:Manage Nutrition/Hydration Completed reinforced patient on implementing strategies to comply with healthy nutrition and adequate hydration Instruct on respiratory disease process and management of condition Description: Patient has following respiratory diagnosis(es): chronic respiratory failure Problem:SN Respiratory Disease Goal:Improved management of respiratory condition Completed patient assessed and reinforced on self monitoring & symptom reporting. Instruct patient/caregiver healing process and management measures to promote healing and avoid complications Problem:SN Integumentary/Wounds Goal:Patient/Caregive r will have improved healing and be free of signs and symptoms of complications Completed patient instructed on the following: healing process. Wound VAC: Instruct on maintenance of Negative Pressure Wound Therapy Machine Problem:SN Integumentary/Wounds Goal:Patient/Caregive r will have improved healing and be free of signs and symptoms of complications Scheduled Instruct and educate on knowledge deficits Problem:SN Learning Assessment Goal:Demonstrate understanding of education Completed patient verbalize and/or demonstrate understanding of nursing education completed today. Education methods include: verbal cues. Further education required to improve knowledge and compliance with fall prevention/home safety strategies, incision/wound care management, medication management and nutrition. Specified Precautions for COVID-19: Contact, Droplet, plus eyewear Problem:Infection Control Goal:Prevent transmission of communicable diseases Completed COVID precautions maintained. Patient instructed on COVID-19 infection control and safety precautions: +Stay at home except to get medical care +When leaving home to get medical care +Avoid using public transportation +Call your doctor or other health care provider prior to your visit to inform them that you have or may have COVID-19 +Separate yourself from other people and animals in your home +Stay in a specific room and use a separate bathroom if available +Avoid sharing personal household items such as towels, cups, or eating utensils +Wash hands before and after caring for animals if no one else is able to care for them +Wear a face mask when you must be around other people or pets and when going out for medical care, +Discard disposable masks and gloves; wash cloth masks daily +Cover your coughs and sneezes with a tissue or cough/sneeze into your elbow +Clean your hands often with soap and water for at least 20 seconds or with an alcohol based hand art history instructor containing at least 60% alcohol, +Clean all high-touch surfaces every day such as counters, tabletops, doorknobs, phones, and bathroom fixtures, +Seek prompt medical attention if your illness is worsening, such as increased difficulty breathing, +Continue home isolation until your healthcare provider and state/local officials tell you to discontinue and Wear disposable gloves, if available, while handling soiled or contaminated items and wash laundry thoroughly +Always wash hands after removing gloves [facility] Visit Details Visit Type -SN ROUTINE Discipline -Assisted Problems Problem Description Start Date Status Goals Interve ntions Medication Education Disciplines: Skilled Services 02/11/2023 Active 1 goal linked to scheduled/document ed intervention 1 goal intervention scheduled/document ed in this visit Sepsis Disciplines: Skilled Services 02/11/2023 Active 1 goal linked to scheduled/document ed intervention 1 goal intervention scheduled/document ed in this visit Physician Specific Parameters Disciplines: Skilled Services 02/11/2023 Active 1 goal linked to scheduled/document ed intervention 1 goal intervention scheduled/document ed in this visit Risk for Falls Disciplines: Skilled Services 02/11/2023 Active 1 goal linked to scheduled/document ed intervention 1 goal intervention scheduled/document ed in this visit Nutrition/Hydrati on Disciplines: Skilled Services 02/11/2023 Active 1 goal linked to scheduled/document ed intervention 1 goal intervention scheduled/document ed in this visit SN Respiratory Disease Disciplines: SN 02/11/2023 Active 1 goal linked to scheduled/document ed intervention 1 goal intervention scheduled/document ed in this visit SN Learning Assessment Disciplines: SN 02/11/2023 Active 1 goal linked to scheduled/document ed intervention 1 goal intervention scheduled/document ed in this visit SN Integumentary/Wou nds Disciplines: SN 03/26/2023 Active 1 goal linked to scheduled/document ed intervention 2 goal interventions scheduled/document ed in this visit Goals Goal Associated Problem Outcome Goal Met? Visit Notes Patient/caregiver will demonstrate ability to obtain, store, identify and administer ordered medications, keep accurate medication list in home, and adhere to medication schedule Description: Patient/caregiver will demonstrate ability to obtain, store, identify and administer ordered medications, keep accurate medication list in home, and adhere to medication schedule by 04/11/23. Medication Education In Progress No Patient/caregiver will be able to identify and report symptoms of sepsis Description: Patient/caregiver will be able to identify signs/symptoms of sepsis infection and will verbalize actions to take if suspected by 04/11/23. Sepsis In Progress No Patient to maintain parameters within physician-specified ranges throughout certification period Physician Specific Parameters In Progress No Manage Risk for falls Description: Patient/caregiver will verbalize knowledge of individualized fall prevention strategies by 04/11/23. Risk for Falls In Progress No Manage Nutrition/Hydration Description: Patient/caregiver will verbalize/demonstrate knowledge of prescribed diet and/or healthy nutrition to be achieved by 03/23/23. Nutrition/Hydration In Progress No Improved management of respiratory condition Description: Improve respiratory management as evidenced by patient/caregiver's ability to teach back strategies for improving respiratory status by 03/23/23. SN Respiratory Disease In Progress No Demonstrate understanding of education Description: Patient and/or caregiver will verbalize understanding of educational instruction provided throughout certification period. SN Learning Assessment In Progress No Patient/Caregiver will have improved healing and be free of signs and symptoms of complications Description: Patient/caregiver will verbalize management strategies to promote wound healing & prevent complications as evidenced by improved healing & no complications by 04/11/23. SN Integumentary/Wounds In Progress No Interventions Intervention Associated Problem/Goal Status Variance Visit Notes Medication Education Description: Evaluate/instruct patient/caregiver on obtaining, storing, identifying and administering ordered medications as well as keeping accurate medication list in the home and adhereing to medication schedule Problem:Medication Education Goal:Patient/caregive r will demonstrate ability to obtain, store, identify and administer ordered medications, keep accurate medication list in home, and adhere to medication schedule Completed Patient instructed on adhering to medication schedule. Sepsis aftercare Description: Patient recenty treated for sepsis related to Right groin abscess. Educate on signs/symptoms of recurrent infection and actions to take if suspected. Problem:Sepsis Goal:Patient/caregive r will be able to identify and report symptoms of sepsis Completed Patient instructed on signs/symptoms of recurrent infection including fever >101 and new or worsening onset of pain. SPO2 Description: Notify Jose Daniel Mane CNP if pulse ox is <92% at rest. Problem:Physician Specific Parameters Goal:Patient to maintain parameters within physician-specified ranges throughout certification period Completed Instruct on individual fall risk factors and strategies to prevent falls and injuries caused by falls. Problem:Risk for Falls Goal:Manage Risk for falls Completed SN: Patient instructed on Eliminating Environmental Hazards: Keep pathways clear Define patient s appetite/hydration status and implement strategies to improve compliance with prescribed diet and/or healthy nutrition. Problem:Nutrition/Hyd ration Goal:Manage Nutrition/Hydration Completed reinforced patient on implementing strategies to comply with healthy nutrition and adequate hydration Instruct on respiratory disease process and management of condition Description: Patient has following respiratory diagnosis(es): chronic respiratory failure Problem:SN Respiratory Disease Goal:Improved management of respiratory condition Completed patient assessed and reinforced on self monitoring & symptom reporting. Instruct and educate on knowledge deficits Problem:SN Learning Assessment Goal:Demonstrate understanding of education Completed patient verbalize and/or demonstrate understanding of nursing education completed today. Education methods include: verbal cues. Further education required to improve knowledge and compliance with fall prevention/home safety strategies, incision/wound care management, medication management and pulmonary disease management. Wound Care: Perform wound care (1) Description: Per Elroy Calvo [employer] FUSER: Right groin- Surgical Wound - apply Vashe moistened gauze to wound and allow to soak for 5-10 minutes -sprinkle Miconazole powder to groin skin folds twice daily - Silver alginate to wound bed, f/b drawtex - cover with [place] SAP silicone bordered foam adhesive dressing. -change every other day and as needed to maintain clean,dry dressing. -caregiver to provide wound care on non-nursing days -Okay to substitute comparable products from home care formulary. Problem:SN Integumentary/Wounds Goal:Patient/Caregive r will have improved healing and be free of signs and symptoms of complications Completed Completed by SN. Patient did tolerate well. Instruct patient/caregiver healing process and management measures to promote healing and avoid complications Problem:SN Integumentary/Wounds Goal:Patient/Caregive r will have improved healing and be free of signs and symptoms of complications Completed patient instructed on the following: healing process. documented in this encounter [facility]'s home Plan of care note* Visit Details Visit Type -SN ROUTINE Discipline -Assisted Problems Problem Description Start Date Status Goals Interve ntions Medication Education Disciplines: Skilled Services 02/11/2023 Active 1 goal linked to scheduled/document ed intervention 1 goal intervention scheduled/documente d in this visit Sepsis Disciplines: Skilled Services 02/11/2023 Active 1 goal linked to scheduled/document ed intervention 1 goal intervention scheduled/documente d in this visit Physician Specific Parameters Disciplines: Skilled Services 02/11/2023 Active 1 goal linked to scheduled/document ed intervention 1 goal intervention scheduled/documente d in this visit Nutrition/Hydra tion Disciplines: Skilled Services 02/11/2023 Active 1 goal linked to scheduled/document ed intervention 1 goal intervention scheduled/documente d in this visit SN Learning Assessment Disciplines: SN 02/11/2023 Active 1 goal linked to scheduled/document ed intervention 1 goal intervention scheduled/documente d in this visit SN Integumentary/W ounds Disciplines: 03/26/2023 Active 1 goal linked to scheduled/document ed intervention 2 goal interventions scheduled/documente d in this visit Goals Goal Associated Problem Outcome Goal Met? Visit Notes Patient/caregiver will demonstrate ability to obtain, store, identify and administer ordered medications, keep accurate medication list in home, and adhere to medication schedule Description: Patient/caregiver will demonstrate ability to obtain, store, identify and administer ordered medications, keep accurate medication list in home, and adhere to medication schedule by 04/11/23. Medication Education No Patient/caregiver will be able to identify and report symptoms of sepsis Description: Patient/caregiver will be able to identify signs/symptoms of sepsis infection and will verbalize actions to take if suspected by 04/11/23. Sepsis No Patient to maintain parameters within physician-specified ranges throughout certification period Physician Specific Parameters No Manage Nutrition/Hydration Description: Patient/caregiver will verbalize/demonstrate knowledge of prescribed diet and/or healthy nutrition to be achieved by 03/23/23. Nutrition/Hydration No Demonstrate understanding of education Description: Patient and/or caregiver will verbalize understanding of educational instruction provided throughout certification period. SN Learning Assessment No Patient/Caregiver will have improved healing and be free of signs and symptoms of complications Description: Patient/caregiver will verbalize management strategies to promote wound healing & prevent complications as evidenced by improved healing & no complications by 04/11/23. SN Integumentary/Wounds No Interventions Intervention Associated Problem/Goal Status Variance Visit Notes Medication Education Description: Evaluate/instruct patient/caregiver on obtaining, storing, identifying and administering ordered medications as well as keeping accurate medication list in the home and adhereing to medication schedule Problem:Medication Education Goal:Patient/caregive r will demonstrate ability to obtain, store, identify and administer ordered medications, keep accurate medication list in home, and adhere to medication schedule Completed Patient instructed on importance of keeping accurate medication list in home and adhering to medication schedule. Sepsis aftercare Description: Patient recenty treated for sepsis related to Right groin abscess. Educate on signs/symptoms of recurrent infection and actions to take if suspected. Problem:Sepsis Goal:Patient/caregive r will be able to identify and report symptoms of sepsis Completed Patient instructed on signs/symptoms of recurrent infection including fever >101 and increase in 02 requirements. SPO2 Description: Notify Jose Daniel Mane CNP if pulse ox is <92% at rest. Problem:Physician Specific Parameters Goal:Patient to maintain parameters within physician-specified ranges throughout certification period Completed Define patient s appetite/hydration status and implement strategies to improve compliance with prescribed diet and/or healthy nutrition. Problem:Nutrition/Hyd ration Goal:Manage Nutrition/Hydration Completed instructed patient on implementing strategies to comply with healthy nutrition and adequate hydration Instruct and educate on knowledge deficits Problem:SN Learning Assessment Goal:Demonstrate understanding of education Completed patient verbalize and/or demonstrate understanding of nursing education completed today. Education methods include: verbal cues. Further education required to improve knowledge and compliance with fall prevention/home safety strategies, incision/wound care management and nutrition. Wound Care: Perform wound care (1) Description: Per Elroy Calvo [employer] FUSER: Right groin- Surgical Wound - apply Vashe moistened gauze to wound and allow to soak for 5-10 minutes -sprinkle Miconazole powder to groin skin folds twice daily - Silver alginate to wound bed, f/b drawtex - cover with [place] SAP silicone bordered foam adhesive dressing. -change every other day and as needed to maintain clean,dry dressing. -caregiver to provide wound care on non-nursing days -Okay to substitute comparable products from home care formulary. Problem:SN Integumentary/Wounds Goal:Patient/Caregive r will have improved healing and be free of signs and symptoms of complications Completed Completed by SN. Patient did tolerate well. Instruct patient/caregiver healing process and management measures to promote healing and avoid complications Problem:SN Integumentary/Wounds Goal:Patient/Caregive r will have improved healing and be free of signs and symptoms of complications Completed patient instructed on the following: healing process, signs and symptoms of infection and importance of good nutrition. [facility] Visit Details Visit Type -SN ROUTINE Discipline -Assisted Problems Problem Description Start Date Status Goals Interve ntions Medication Education Disciplines: Skilled Services 02/11/2023 Active 1 goal linked to scheduled/document ed intervention 1 goal intervention scheduled/document ed in this visit Sepsis Disciplines: Skilled Services 02/11/2023 Active 1 goal linked to scheduled/document ed intervention 1 goal intervention scheduled/document ed in this visit Physician Specific Parameters Disciplines: Skilled Services 02/11/2023 Active 1 goal linked to scheduled/document ed intervention 1 goal intervention scheduled/document ed in this visit Risk for Falls Disciplines: Skilled Services 02/11/2023 Active 1 goal linked to scheduled/document ed intervention 1 goal intervention scheduled/document ed in this visit Oxygen Disciplines: Skilled Services 02/11/2023 Active 1 goal linked to scheduled/document ed intervention 1 goal intervention scheduled/document ed in this visit Discharge Disciplines: Skilled Services 02/11/2023 Active 1 goal linked to scheduled/document ed intervention 1 goal intervention scheduled/document ed in this visit SN Respiratory Disease Disciplines: SN 02/11/2023 Active 1 goal linked to scheduled/document ed intervention 1 goal intervention scheduled/document ed in this visit SN Learning Assessment Disciplines: SN 02/11/2023 Active 1 goal linked to scheduled/document ed intervention 1 goal intervention scheduled/document ed in this visit SN Integumentary/Wou nds Disciplines: SN 03/26/2023 Active 1 goal linked to scheduled/document ed intervention 1 goal intervention scheduled/document ed in this visit Recertification Disciplines: Skilled Services 04/09/2023 Active 1 goal linked to scheduled/document ed intervention 1 goal intervention scheduled/document ed in this visit Goals Goal Associated Problem Outcome Goal Met? Visit Notes Patient/caregiver will demonstrate ability to obtain, store, identify and administer ordered medications, keep accurate medication list in home, and adhere to medication schedule Description: Patient/caregiver will demonstrate ability to obtain, store, identify and administer ordered medications, keep accurate medication list in home, and adhere to medication schedule by 05/19/22. Medication Education No Patient/caregiver will be able to identify and report symptoms of sepsis Description: Patient/caregiver will be able to identify signs/symptoms of sepsis infection and will verbalize actions to take if suspected by 05/19/22. Sepsis No Patient to maintain parameters within physician-specified ranges throughout certification period Physician Specific Parameters No Manage Risk for falls Description: Patient/caregiver will verbalize knowledge of individualized fall prevention strategies by 05/19/22. Risk for Falls No Manage oxygen Description: Patient/caregiver will use oxygen safely and effectively in home by verbalizing and demonstrating oxygen safety by 05/19/22. Oxygen No Manage discharge planning Description: Patient/caregiver will verbalize understanding of ongoing discharge plan provided related to disease management, arrangements for outpatient and/or community services, obtaining medications, supplies, and DME, as needed throughout certification period. Discharge No Improved management of respiratory condition Description: Improve respiratory management as evidenced by patient/caregiver's ability to teach back strategies for improving respiratory status by 05/19/22. SN Respiratory Disease No Demonstrate understanding of education Description: Patient and/or caregiver will verbalize understanding of educational instruction provided throughout certification period. SN Learning Assessment No Patient/Caregiver will have improved healing and be free of signs and symptoms of complications Description: Patient/caregiver will verbalize management strategies to promote wound healing & prevent complications as evidenced by improved healing & no complications by 05/19/22. SN Integumentary/Wounds No Ongoing review of POC and need for skilled services Recertification No Interventions Intervention Associated Problem/Goal Status Variance Visit Notes Medication Education Description: Evaluate/instruct patient/caregiver on obtaining, storing, identifying and administering ordered medications as well as keeping accurate medication list in the home and adhereing to medication schedule Problem:Medication Education Goal:Patient/caregiv er will demonstrate ability to obtain, store, identify and administer ordered medications, keep accurate medication list in home, and adhere to medication schedule Completed Patient instructed on importance of keeping accurate medication list in home and adhering to medication schedule. Sepsis aftercare Description: Patient recenty treated for sepsis related to Right groin abscess. Educate on signs/symptoms of recurrent infection and actions to take if suspected. Problem:Sepsis Goal:Patient/caregiv er will be able to identify and report symptoms of sepsis Completed Patient instructed on signs/symptoms of recurrent infection including fever >101, hypothermia <96.8 and increase in 02 requirements. SPO2 Description: Notify Jose Daniel Mane CNP if pulse ox is <92% at rest. Problem:Physician Specific Parameters Goal:Patient to maintain parameters within physician-specified ranges throughout certification period Completed Instruct on individual fall risk factors and strategies to prevent falls and injuries caused by falls. Problem:Risk for Falls Goal:Manage Risk for falls Completed SN: Patient instructed on Safety precautions for orthostatic hypotension Instruct on fire safety and safe and effective use of oxygen in the home Problem:Oxygen Goal:Manage oxygen Completed patient instructed on: findings of safety risk assessment, precautions that can prevent fire-related injuries and oxygen safety as outlined in Home Care Patient Handbook patient and caregiver demonstrate compliance with safety recommendations. Instruct on ongoing discharge plan Problem:Discharge Goal:Manage discharge planning Completed Ongoing Discharge plan: Discharge plan discussed with patient including frequency and duration for home SN and plan for transition to: live independently at home without ongoing services. Instruct on respiratory disease process and management of condition Description: Patient has following respiratory diagnosis(es): chronic respiratory failure Problem:SN Respiratory Disease Goal:Improved management of respiratory condition Completed patient assessed and reinforced on respiratory disease process, zone sheet and self monitoring & symptom reporting. Instruct and educate on knowledge deficits Problem:SN Learning Assessment Goal:Demonstrate understanding of education Completed patient verbalize and/or demonstrate understanding of nursing education completed today. Education methods include: verbal cues and tactile cues. Further education required to improve knowledge and compliance with gastrointestinal care management, genitourinary care management, incision/wound care management, integumentary care management and medication management. Wound Care: Perform wound care (1) Description: Per updated 04/12/23 updated orders. Elroy Calvo [employer] FUSER: Right groin- Surgical Wound (L98.492) Skin ulcer of abdomen with fat layer exposed (HCC) Plan: - Irrigate wound and periwound skin with normal saline and gauze . Vashe soak to wound, then rinse with saline. Skin prep periwound. Apply saline moistened Hydrofera blue and Drawtex to the wound. Cover with adhesive bordered foam dressing (4x4 [place] SAP applied in clinic today). Change dressing 3x/week (M-W-F) and prn. - Cleanse abdominal fold with soap and water daily. Pat dry. Apply Miconazole 2% powder abdominal fold area twice a day for prevention and to help keep area dry. - Continue aggressive nutritional support to assist wound healing - Follow up in wound center in 2 weeks -caregiver to provide wound care on non-nursing days -Okay to substitute comparable products from home care formulary. Problem:SN Integumentary/Wounds Goal:Patient/Caregiv er will have improved healing and be free of signs and symptoms of complications Completed Completed by SN. Patient did tolerate well. Continued need for Home Care Services Description: POC and certification renewed due to continuing senior living needs. Problem:Recertificat ion Goal:Ongoing review of POC and need for skilled services Completed [facility] Visit Details Visit Type -SN ROUTINE Discipline -Assisted Problems Problem Description Start Date Status Goals Interve ntions Physician Specific Parameters Disciplines: Skilled Services 02/11/2023 Active 1 goal linked to scheduled/document ed intervention 1 goal intervention scheduled/document ed in this visit Risk for Falls Disciplines: Skilled Services 02/11/2023 Active 1 goal linked to scheduled/document ed intervention 1 goal intervention scheduled/document ed in this visit SN Respiratory Disease Disciplines: SN 02/11/2023 Active 1 goal linked to scheduled/document ed intervention 1 goal intervention scheduled/document ed in this visit SN Learning Assessment Disciplines: SN 02/11/2023 Active 1 goal linked to scheduled/document ed intervention 1 goal intervention scheduled/document ed in this visit SN Integumentary/Wou nds Disciplines: 03/26/2023 Active 1 goal linked to scheduled/document ed intervention 2 goal interventions scheduled/document ed in this visit Goals Goal Associated Problem Outcome Goal Met? Visit Notes Patient to maintain parameters within physician-specified ranges throughout certification period Physician Specific Parameters No Manage Risk for falls Description: Patient/caregiver will verbalize knowledge of individualized fall prevention strategies by 05/19/22. Risk for Falls No Improved management of respiratory condition Description: Improve respiratory management as evidenced by patient/caregiver's ability to teach back strategies for improving respiratory status by 05/19/22. SN Respiratory Disease No Demonstrate understanding of education Description: Patient and/or caregiver will verbalize understanding of educational instruction provided throughout certification period. SN Learning Assessment No Patient/Caregiver will have improved healing and be free of signs and symptoms of complications Description: Patient/caregiver will verbalize management strategies to promote wound healing & prevent complications as evidenced by improved healing & no complications by 05/19/22. SN Integumentary/Wounds No Interventions Intervention Associated Problem/Goal Status Variance Visit Notes SPO2 Description: Notify Jose Daniel Mane CNP if pulse ox is <92% at rest. Problem:Physician Specific Parameters Goal:Patient to maintain parameters within physician-specified ranges throughout certification period Completed Instruct on individual fall risk factors and strategies to prevent falls and injuries caused by falls. Problem:Risk for Falls Goal:Manage Risk for falls Completed SN: Patient instructed on Eliminating Environmental Hazards: Keep pathways clear and Keep pets out of pathways Instruct on respiratory disease process and management of condition Description: Patient has following respiratory diagnosis(es): chronic respiratory failure Problem:SN Respiratory Disease Goal:Improved management of respiratory condition Completed patient assessed and reinforced on respiratory disease process, zone sheet and self monitoring & symptom reporting. Instruct and educate on knowledge deficits Problem:SN Learning Assessment Goal:Demonstrate understanding of education Completed patient verbalize and/or demonstrate understanding of nursing education completed today. Education methods include: verbal cues. Further education required to improve knowledge and compliance with fall prevention/home safety strategies, incision/wound care management, integumentary care management, nutrition and pain management. Wound Care: Perform wound care (1) Description: Per updated 04/12/23 updated orders. Elroy Calvo [employer] FUSER: Right groin- Surgical Wound (L98.492) Skin ulcer of abdomen with fat layer exposed (HCC) Plan: - Irrigate wound and periwound skin with normal saline and gauze . Vashe soak to wound, then rinse with saline. Skin prep periwound. Apply saline moistened Hydrofera blue and Drawtex to the wound. Cover with adhesive bordered foam dressing (4x4 [place] SAP applied in clinic today). Change dressing 3x/week (-W-) and prn. - Cleanse abdominal fold with soap and water daily. Pat dry. Apply Miconazole 2% powder abdominal fold area twice a day for prevention and to help keep area dry. - Continue aggressive nutritional support to assist wound healing - Follow up in wound center in 2 weeks -caregiver to provide wound care on non-nursing days -Okay to substitute comparable products from home care formulary. Problem:SN Integumentary/Wounds Goal:Patient/Caregive r will have improved healing and be free of signs and symptoms of complications Completed Completed by SN. Patient did tolerate well. Instruct patient/caregiver healing process and management measures to promote healing and avoid complications Problem:SN Integumentary/Wounds Goal:Patient/Caregive r will have improved healing and be free of signs and symptoms of complications Completed patient instructed on the following: healing process and signs and symptoms of infection. documented in this encounter [facility] for referral (narrative)* Consultation (Routine) - Authorized Specialty Diagnoses / Procedures Referred By Shawna gomez Referred To Contact Primary Care Diagnoses Peripheral edema Weight gain Procedures Follow Up In Primary Care - Jose Daniel Ortiz APRN-CNP [address] [place] [address] Referral ID Status Reason Start Date Expiration Date V isits Requested Visits Authorized [id number] Authorized 11/09/2022 05/08/2023 1 1 * CV Imaging (Routine) - Authorized Specialty Diagnoses / Procedures Referred By Shawna gomez Referred To Contact Cardiology Diagnoses Peripheral edema Procedures Transthoracic echo (TTE) complete MI ECHO TRANSTHORC R-T 2D W/WO M-MODE REC F-UP/LMTD MI DOP ECHOCARD COLOR FLOW VELOCITY MAPPING MI DOP ECHOCARD PULSE WAVE W/SPECTRAL F-UP/LMTD STD Jose Daniel Mane APRN-CNP [address] [place] [address] Referral ID Status Reason Start Date Expiration Date Visits Requested Visits Authorized [id number] Authorized Perform Procedure 11/09/2022 05/08/2023 1 1 [facility] Work Phone: reason for referral (narrative)* Consultation (Routine) - Authorized Specialty Diagnoses / Procedures Referred By Shawna gomez Referred To Contact Diagnoses Peripheral edema Venous insufficiency Jose Daniel Mane APRN-CNP [address] [place] [address] Alan Sweeney MD [address] [place] [id number] Referral ID Status Reason Start Date Expiration Date Visits Requested Visits Authorized [id number] Authorized Specialty Services Required 11/23/2022 05/22/2023 1 1 [facility] Work Phone: reason for referral (narrative)* Consultation (Routine) - Authorized Specialty Diagnoses / Procedures Referred By Contac t Referred To Contact Primary Care Diagnoses Hyperlipidemia, unspecified hyperlipidemia type Pulmonary hypertension (CMS/HCC) Prediabetes Procedures Follow Up In Primary Care - Established Jose Daniel Mane APRN-CNP [address] [place] [address] Referral ID Status Reason Start Date Expiration Date V isits Requested Visits Authorized [id number] Authorized 02/22/2023 02/22/2024 1 1 * Sleep - Outpatient (Routine) - Pending Review Specialty Diagnoses / Procedures Referred By Contjaspal t Referred To Contact Sleep Lab Diagnoses Snoring Procedures Home sleep apnea test (HSAT) Jose Daniel Mane APRN-CNP [address] [place] [address] Referral ID Status Reason Start Date Expiration Date V isits Requested Visits Authorized [id number] Pending Review 02/22/2023 02/22/2024 1 1 * Consultation (Routine) - Pending Review Specialty Diagnoses / Procedures Referred By Contac t Referred To Contact Cardiology Diagnoses Pulmonary hypertension (CMS/HCC) Jose Daniel Mane APRN-MELONY [address] [place] [address] Referral ID Status Reason Start Date Expiration Date Visits Requested Visits Authorized [id number] Pending Review Specialty Services Required 02/22/2023 02/22/2024 1 1 [facility] Work Phone: [facility] for referral (narrative)* Consultation (Routine) - Authorized Specialty Diagnoses / Procedures Referred By Contac t Referred To Contact Cardiology Diagnoses Pulmonary hypertension (HCC) Jose Daniel Mane CNP [address] [place] [address] [facility] [address] [id number] Referral ID Status Reason Start Date Expiration Date V isits Requested Visits Authorized [id number] Authorized 02/22/2023 02/22/2024 1 1 [facility] for referral (narrative)* Consultation (Routine) - Authorized Specialty Diagnoses / Procedures Referred By Contac t Referred To Contact Cardiology Diagnoses Pulmonary hypertension (CMS/HCC) Jose Daniel Mane APRN-CNP [address] [place] [address] Ranjeet Cannon, [address] [id number] Referral ID Status Reason Start Date Expiration Date Visits Requested Visits Authorized [id number] Authorized Specialty Services Required 04/04/2024 1 1 * Consultation (Routine) - Authorized Specialty Diagnoses / Procedures Referred By Contac t Referred To Contact Primary Care Diagnoses Anxiety and depression Anxiety Procedures Follow Up In Primary Care - Established Jose Daniel Mane, DESKTOP SUPPORT CONSULTANT-CIRCULAR SAW EDGE FUSER [address] [place] [address] Referral ID Status Reason Start Date Expiration Date V isits Requested Visits Authorized [id number] Authorized 04/05/2023 04/04/2024 1 1 [facility] Work Phone: Reason for referral (narrative)* Consultation (Routine) - Authorized Specialty Diagnoses / Procedures Referred By Contac t Referred To Contact Primary Care Diagnoses Anxiety and depression Procedures Follow Up In Primary Care - Established Jose Daniel Mane, DESKTOP SUPPORT CONSULTANT-CIRCULAR SAW EDGE FUSER [address] [place] [address] Referral ID Status Reason Start Date Expiration Date V isits Requested Visits Authorized [id number] Authorized 2023 07/04/2024 1 1 * Consultation (Routine) - Authorized Specialty Diagnoses / Procedures Referred By Contac t Referred To Contact Nutrition Diagnoses Weight gain Jose Daniel Mane Otilio, DESKTOP SUPPORT CONSULTANT-CIRCULAR SAW EDGE FUSER [address] [place] [address] Referral ID Status Reason Start Date Expiration Date Visits Requested Visits Authorized [id number] Authorized Specialty Services Required 2023 07/04/2024 1 1 [facility] Work Phone: Summary Purpose Family History No Family History Records Found Grandparent Name Dates Details Family history of Cancer of unknown origin(199.1, C80.1) Status:Active Mother Name Dates Details Family history of hypertensi on(V17.49, Z82.49) Status:Active Father Name Dates Details Family history of hypertensi on(V17.49, Z82.49) Status:Active Sister Name Dates Details Family history of hypertensi on(V17.49, Z82.49) Status:Active Family history of diabetes m ellitus(V18.0, Z83.3) Status:Active Grandparent Name Dates Details Family history of Cancer of unknown origin(199.1, C80.1) Status:Active Mother Name Dates Details Family history of hypertensi on(V17.49, Z82.49) Status:Active Father Name Dates Details Family history of hypertensi on(V17.49, Z82.49) Status:Active Sister Name Dates Details Family history of hypertensi on(V17.49, Z82.49) Status:Active Family history of diabetes m ellitus(V18.0, Z83.3) Status:Active Unknown Family Member Name Dates Details Family history of hypertensi on: Mother, Father, Sister(V17.49, Z82.49) Status:Active Family history of diabetes m ellitus: Sister(V18.0, Z83.3) Status:Active Cancer of unknown origin: Gr andparent Status:Active Unknown Family Member Name Dates Details Family history of hypertensi on: Mother, Father, Sister(V17.49, Z82.49) Status:Active Family history of diabetes m ellitus: Sister(V18.0, Z83.3) Status:Active Cancer of unknown origin: Gr andparent Status:Active Unknown Family Member Name Dates Details Family history of hypertensi on: Mother, Father, Sister(V17.49, Z82.49) Status:Active Family history of diabetes m ellitus: Sister(V18.0, Z83.3) Status:Active Cancer of unknown origin: Gr andparent Status:Active Unknown Family Member Name Dates Details Family history of hypertensi on: Mother, Father, Sister(V17.49, Z82.49) Status:Active Family history of diabetes m ellitus: Sister(V18.0, Z83.3) Status:Active Cancer of unknown origin: Gr andparent Status:Active Unknown Family Member Name Dates Details Cancer of unknown origin: Gr andparent Status:Active Family history of diabetes m ellitus: Sister(V18.0, Z83.3) Status:Active Family history of hypertensi on: Mother, Father, Sister(V17.49, Z82.49) Status:Active Unknown Family Member Name Dates Details Cancer of unknown origin: Gr andparent Status:Active Family history of diabetes m ellitus: Sister(V18.0, Z83.3) Status:Active Family history of hypertensi on: Mother, Father, Sister(V17.49, Z82.49) Status:Active Unknown Family Member Name Dates Details Cancer of unknown origin: Gr andparent Status:Active Family history of diabetes m ellitus: Sister(V18.0, Z83.3) Status:Active Family history of hypertensi on: Mother, Father, Sister(V17.49, Z82.49) Status:Active Unknown Family Member Name Dates Details Family history of hypertensi on: Mother, Father, Sister(V17.49, Z82.49) Status:Active Family history of diabetes m ellitus: Sister(V18.0, Z83.3) Status:Active Cancer of unknown origin: Gr andparent Status:Active Unknown Family Member Name Dates Details Family history of hypertensi on: Mother, Father, Sister(V17.49, Z82.49) Status:Active Family history of diabetes m ellitus: Sister(V18.0, Z83.3) Status:Active Cancer of unknown origin: Gr andparent Status:Active Unknown Family Member Name Dates Details Family history of hypertensi on: Mother, Father, Sister(V17.49, Z82.49) Status:Active Family history of diabetes m ellitus: Sister(V18.0, Z83.3) Status:Active Cancer of unknown origin: Gr andparent Status:Active Unknown Family Member Name Dates Details Family history of hypertensi on: Mother, Father, Sister(V17.49, Z82.49) Status:Active Family history of diabetes m ellitus: Sister(V18.0, Z83.3) Status:Active Cancer of unknown origin: Gr andparent Status:Active Unknown Family Member Name Dates Details Family history of hypertensi on: Mother, Father, Sister(V17.49, Z82.49) Status:Active Family history of diabetes m ellitus: Sister(V18.0, Z83.3) Status:Active Cancer of unknown origin: Gr andparent Status:Active Unknown Family Member Name Dates Details Family history of hypertensi on: Mother, Father, Sister(V17.49, Z82.49) Status:Active Family history of diabetes m ellitus: Sister(V18.0, Z83.3) Status:Active Cancer of unknown origin: Gr andparent Status:Active Unknown Family Member Name Dates Details Cancer of unknown origin: Gr andparent Status:Active Family history of diabetes m ellitus: Sister(V18.0, Z83.3) Status:Active Family history of hypertensi on: Mother, Father, Sister(V17.49, Z82.49) Status:Active Unknown Family Member Name Dates Details Family history of hypertensi on: Mother, Father, Sister(V17.49, Z82.49) Status:Active Family history of diabetes m ellitus: Sister(V18.0, Z83.3) Status:Active Cancer of unknown origin: Gr andparent Status:Active Unknown Family Member Name Dates Details Cancer of unknown origin: Gr andparent Status:Active Family history of diabetes m ellitus: Sister(V18.0, Z83.3) Status:Active Family history of hypertensi on: Mother, Father, Sister(V17.49, Z82.49) Status:Active Unknown Family Member Name Dates Details Family history of hypertensi on: Mother, Father, Sister(V17.49, Z82.49) Status:Active Family history of diabetes m ellitus: Sister(V18.0, Z83.3) Status:Active Cancer of unknown origin: Gr andparent Status:Active Unknown Family Member Name Dates Details Family history of hypertensi on: Mother, Father, Sister(V17.49, Z82.49) Status:Active Family history of diabetes m ellitus: Sister(V18.0, Z83.3) Status:Active Cancer of unknown origin: Gr andparent Status:Active Relationship Condition Age at Onset Recorded Date/T da sister Hypertension Unknown Diabetes mellitus Unknown mother Hypertension Unknown Malignant neoplasm of vulva Unknown brother Malignant neoplasm of pancreas Unknown Unknown Family Member Name Dates Details Family history of hypertensi on: Mother, Father, Sister(V17.49, Z82.49) Status:Active Family history of diabetes m ellitus: Sister(V18.0, Z83.3) Status:Active Cancer of unknown origin: Gr andparent Status:Active Unknown Family Member Name Dates Details Family history of hypertensi on: Mother, Father, Sister(V17.49, Z82.49) Status:Active Family history of diabetes m ellitus: Sister(V18.0, Z83.3) Status:Active Cancer of unknown origin: Gr andparent Status:Active Unknown Family Member Name Dates Details Family history of hypertensi on: Mother, Father, Sister(V17.49, Z82.49) Status:Active Family history of diabetes m ellitus: Sister(V18.0, Z83.3) Status:Active Cancer of unknown origin: Gr andparent Status:Active Unknown Family Member Name Dates Details Family history of hypertensi on: Mother, Father, Sister(V17.49, Z82.49) Status:Active Family history of diabetes m ellitus: Sister(V18.0, Z83.3) Status:Active Cancer of unknown origin: Gr andparent Status:Active Unknown Family Member Name Dates Details Family history of hypertensi on: Mother, Father, Sister(V17.49, Z82.49) Status:Active Family history of diabetes m ellitus: Sister(V18.0, Z83.3) Status:Active Cancer of unknown origin: Gr andparent Status:Active Advance Directives No Advanced Directives Records Found Advance Directive Response Recorded Date/ Time Advance Directives No March 7:30am Living Will No April 19 021 7:30am Power of Graduate Research Assistant No April 19, 2021 7:30am Advance Directive Response Recorded Date/ Time Advance Directives No March 8:30am Living Will No April 19 021 8:30am Power of Graduate Research Assistant No April 19, 2021 8:30am Latest Code Status on File Code Status Date Activated Date Inactivated Comments Full Code 01/26/2023 8:58 PM Question Answer Comments Full Code Order Discussed With: Patient Code Status History Code Status Date Activated Date Inactivated Comments Full Code 01/20/2023 10:44 AM 01/26/2023 8:57 PM Question Answer Comments Full Code Order Discussed With: Patient Latest Code Status on File Code Status Date Activated Date Inactivated Comments Full Code 02/11/2023 1:32 PM Code Status History Code Status Date Activated Date Inactivated Comments Full Code 01/26/2023 8:58 PM 02/09/2023 4:52 PM Question Answer Comments Full Code Order Discussed With: Patient Full Code 01/20/2023 10:44 AM 01/26/2023 8:57 PM Question Answer Comments Full Code Order Discussed With: Patient Latest Code Status on File Code Status Date Activated Date Inactivated Comments Full Code 02/11/2023 1:32 PM Code Status History Code Status Date Activated Date Inactivated Comments Full Code 01/26/2023 8:58 PM 02/09/2023 4:52 PM Question Answer Comments Full Code Order Discussed With: Patient Full Code 01/20/2023 10:44 AM 01/26/2023 8:57 PM Question Answer Comments Full Code Order Discussed With: Patient Chief Complaint 6 MO FU REV LANS WELLNESSWCH ER FU ELEVATED BP1 MO FU ANXIETY1 MO FU GAD3 MO CS FU3MO CS CHKMIGRAINES X 1 A WEEK.CSA/UDSCSA/UDS3 MO F/U. CSA Chief Complaint and Reason for Visit Chief Complaint EM[employer]OYEE [employer]S Sinus infection Reason for Visit Sinusitis, acute Chief Complaint RT HAND INJURY E ORDER Reason for Visit Strain of right wris t Chief Complaint SORE THROAT SCREENING Reason for Visit Sinusitis, acute Health Concerns Infection Onset Date Last Indicated Resolved Time COVID-19 Confirmed Comment:Patient tested positive with home Covid-19 test 03/17/2023. 03/17/2023 03/20/2023 Infection Onset Date Last Indicated Resolved Time COVID-19 Confirmed Comment:Patient tested positive with home Covid-19 test 03/17/2023. 03/17/2023 03/20/2023 Additional Source Comments INFORMATION SOURCE (unrecogn ized section and content) DATE CREATED AUTHOR 08/13/2018 [facility] DATE CREATED AUTHOR AUTHOR'S ORGANIZ ATION 06/24/2022 [facility] DATE CREATED AUTHOR AUTHOR'S ORGANIZ ATION 06/24/2022 [employer] DATE CREATED AUTHOR AUTHOR'S ORGANIZ ATION 01/25/2023 [facility] DATE CREATED AUTHOR AUTHOR'S ORGANIZ ATION 03/08/2023 [facility] DATE CREATED AUTHOR AUTHOR'S ORGANIZ ATION 04/09/2023 [facility] DATE CREATED AUTHOR AUTHOR'S ORGANIZ ATION 04/10/2023 [facility] DATE CREATED AUTHOR AUTHOR'S ORGANIZ ATION 05/11/2023 [facility] DATE CREATED AUTHOR AUTHOR'S ORGANIZ ATION 05/18/2023 [facility] DATE CREATED AUTHOR AUTHOR'S ORGANIZ ATION 01/28/2025 [facility] DATE CREATED AUTHOR AUTHOR'S ORGANIZ ATION 02/02/2025 [facility] Goals (unrecognized section and content) Goals may be documented in a n alternate sectionGoals may be documented in an alternate sectionGoals may be documented in an alternate section Reason for Visit (unrecogniz ed section and content) Reason Comments Leg Swelling Worsened over the pa st 1 week. States she has a burning pain through her legs and stiffness. Reason Comments Leg Pain Hot burning, stingin g pain in legs and feet Specialty Diagnoses / Procedures Referred By Contac t Referred To Contact Primary Care Diagnoses Peripheral edema Weight gain Procedures Follow Up In Primary Care - Established Jose Daniel Mane, DESKTOP SUPPORT CONSULTANT-CIRCULAR SAW EDGE FUSER [address] [place] [address] Referral ID Status Reason Start Date Expiration Date V isits Requested Visits Authorized [id number] Authorized 11/09/2022 05/08/2023 1 1 Reason Comments Follow-up 3 MO CSA Reason Comments Opened In Error Reason Comments Home Care MD to follow Reason Comments Home Care Confirmation call Reason Comments Wound Evaluation Right groin Reason Comments Hospital Follow-up Abscess in abdomen Reason Comments Wound Check Right groin Specialty Diagnoses / Procedures Referred By Contac t Referred To Contact [facility] Home Care [address] [place] [id number] Referral ID Status Reason Start Date Expiration Date Visits Re quested Visits Authorized [id number] 1 1 Reason Comments Home Care Reason Comments Controlled Substance Agreement Specialty Diagnoses / Procedures Referred By Contac t Referred To Contact Primary Care Diagnoses Hyperlipidemia, unspecified hyperlipidemia type Pulmonary hypertension (CMS/HCC) Prediabetes Procedures Follow Up In Primary Care - Established Jose Daniel Mane, DESKTOP SUPPORT CONSULTANT-CIRCULAR SAW EDGE FUSER [address] [place] [address] Referral ID Status Reason Start Date Expiration Date V isits Requested Visits Authorized [id number] Authorized 02/22/2023 02/22/2024 1 1 Reason Comments Controlled Substance 3 mo CSA Specialty Diagnoses / Procedures Referred By Contjaspal t Referred To Contact Primary Care Diagnoses Anxiety and depression Anxiety Procedures Follow Up In Primary Care - Established Jose Daniel Mane, DESKTOP SUPPORT CONSULTANT-CIRCULAR SAW EDGE FUSER [address] [place] [address] Referral ID Status Reason Start Date Expiration Date V isits Requested Visits Authorized [id number] Authorized 04/05/2023 04/04/2024 1 1 Reason Comments Follow-up 6 mo fu Care Teams (unrecognized sec tion and content) Sr. Logistics Analyst Relationship Specialty Start Date End Date Chinyere Quigley MD [address] [place] [address] PCP - General 01/03/19 Sr. Logistics Analyst Relationship Specialty Start Date End Date Chinyere Quigley MD [address] [place] [address] PCP - General 01/03/19 Team Status: Active Member Role Status Dates Dr. Chinyere Quigley MD Family Provider Active Dr. Chinyere Quigley MD Primary Care Provider Active Team Status: Inactive Member Role Status Dates Dr. Chinyere Quigley MD Primary Care Provider, Referr ing Provider Active Alvin CARUSO PA Attending Provider Active Team Status: Inactive Member Role Status Dates Dr. Chinyere Quigley MD Primary Care Provider Active Alvin CARUSO PA Attending Provider Active Sr. Logistics Analyst Relationship Specialty Start Date End Date Jose Daniel Mane, DESKTOP SUPPORT CONSULTANT-CIRCULAR SAW EDGE FUSER [address] [place] [address] PCP - General 12/29/22 Sr. Logistics Analyst Relationship Specialty Start Date End Date Jose Daniel Mane CIRCULAR SAW EDGE FUSER [address] [place] [address] PCP - General Family Medicine 01/17/23 Jose Daniel Mane MELONY [address] [place] [address] Home Care Provider Family Medicine 02/05/23 Sr. Logistics Analyst Relationship Specialty Start Date End Date Jose Daniel Mane CIRCULAR SAW EDGE FUSER [address] [place] [address] PCP - General Family Medicine 01/17/23 Jose Daniel ManeMELONY [address] [place] [address] Home Care Provider Family Medicine 02/05/23 Sr. Logistics Analyst Relationship Specialty Start Date End Date Jose Daniel Mane CIRCULAR SAW EDGE FUSER [address] [place] [id number] PCP - General Family Medicine 01/17/23 Jose Daniel ManeMELONY [address] [place] [address] Home Care Provider Family Medicine 02/05/23 Joanne Barrientos APRN.MELONY [address] [place] [address] Referring Admitting 02/09/23 Mani Marinelli, VANITA [address] [place], [place] [id number] Hogshead Mat Assembler Post Acute Care 02/09/23 Sr. Logistics Analyst Relationship Specialty Start Date End Date Jose Daniel ManeMELONY [address] [place] [address] PCP - General Family Medicine 01/17/23 Jose Daniel ManeMELONY [address] [place] [address] Home Care Provider Family Medicine 02/05/23 Joanne Barrientos APRN.CIRCULAR SAW EDGE FUSER [address] [place] [address] Referring Admitting 02/09/23 Mani Marinelli RN [address] [place] [address] Hogshead Mat Assembler Post Acute Care 02/09/23 Sr. Logistics Analyst Relationship Specialty Start Date End Date Jose Daniel ManeMELONY [address] [place] [address] PCP - General Family Medicine 01/17/23 NavneetJose Daniel CNP [address] [place] [address] Home Care Provider Family Medicine 02/05/23 Joanne Barrientos APRN.CIRCULAR SAW EDGE FUSER [address] [place] [address] Referring Admitting 02/09/23 Mani Marinelli RN [address] [place] [address] Hogshead Mat Assembler Post Acute Care 02/09/23 Sr. Logistics Analyst Relationship Specialty Start Date End Date Jose Daniel ManeMELONY [address] [place] [address] PCP - General Family Medicine 01/17/23 NavneetJose Daniel CIRCULAR SAW EDGE FUSER [address] [place] [address] Home Care Provider Family Medicine 02/05/23 Joanne Barrientos APRN.CIRCULAR SAW EDGE FUSER [address] [place] [address] Referring Admitting 02/09/23 Mani Marinelli RN [address] [place] [address] Hogshead Mat Assembler Post Acute Care 02/09/23 Sr. Logistics Analyst Relationship Specialty Start Date End Date Jose Daniel Mane CIRCULAR SAW EDGE FUSER [address] [place] [address] PCP - General Family Medicine 01/17/23 Jose Daniel Mane CIRCULAR SAW EDGE FUSER [address] [place] [address] Home Care Provider Family Medicine 02/05/23 Joanne Barrientos, DESKTOP SUPPORT CONSULTANT.CIRCULAR SAW EDGE FUSER [address] [place] [address] Referring Admitting 02/09/23 Mani Marinleli RN [address] [facility] [place] [address] Hogshead Mat Assembler Post Acute Care 02/09/23 Sr. Logistics Analyst Relationship Specialty Start Date End Date Jose Daniel Mane CIRCULAR SAW EDGE FUSER [address] [place] [address] PCP - General Family Medicine 01/17/23 Jose Daniel Mane CIRCULAR SAW EDGE FUSER [address] [place] [address] Home Care Provider Family Medicine 02/05/23 Joanne Barrientos, DESKTOP SUPPORT CONSULTANT.CIRCULAR SAW EDGE FUSER [address] [place] [address] Referring Admitting 02/09/23 Mani Marinelli RN [address] [place], [place] [id number] Hogshead Mat Assembler Post Acute Care 02/09/23 Sr. Logistics Analyst Relationship Specialty Start Date End Date Jose Daniel Mane CIRCULAR SAW EDGE FUSER [address] [place] [address] PCP - General Family Medicine 01/17/23 Jose Daniel ManeMELONY [address] [place] [address] Home Care Provider Family Medicine 02/05/23 Joanne Barrientos, DESKTOP SUPPORT CONSULTANT.CIRCULAR SAW EDGE FUSER [address] [place], [place] [id number] Referring Admitting 02/09/23 Mani Marinelli, VANITA [address] [place] [address] Hogshead Mat Assembler Post Acute Care 02/09/23 Sr. Logistics Analyst Relationship Specialty Start Date End Date Jose Daniel ManeMELONY [address] [place] [address] PCP - General Family Medicine 01/17/23 Jose Daniel Mane CIRCULAR SAW EDGE FUSER [address] [place] [address] Home Care Provider Family Medicine 02/05/23 Joanne Barrientos, DESKTOP SUPPORT CONSULTANT.CIRCULAR SAW EDGE FUSER [address] [place] [address] Referring Admitting 02/09/23 Mani Marinelli, VANITA [address] [place] [address] Hogshead Mat Assembler Post Acute Care 02/09/23 Sr. Logistics Analyst Relationship Specialty Start Date End Date Navneet Jose Daniel Yañez APRN-CIRCULAR SAW EDGE FUSER [address] [facility] [place] [address] PCP - General 12/29/22 Sharla Stokes LPN [employer] Security Analyst 02/12/23 Sr. Logistics Analyst Relationship Specialty Start Date End Date Jose Daniel Mane CNP [address] [place] [address] PCP - General Nurse Practitioner 02/22/23 Sr. Logistics Analyst Relationship Specialty Start Date End Date Jose Daniel Mane CNP [address] [place] [address] PCP - General Family Medicine 01/17/23 Jose Daniel Mane CIRCULAR SAW EDGE FUSER [address] [place] [address] Home Care Provider Family Medicine 02/05/23 Joanne Barrientos, VERA.CIRCULAR SAW EDGE FUSER [address] [place] [address] Referring Admitting 02/09/23 Mani Marinelli RN [address] [place] [address] Hogshead Mat Assembler Post Acute Care 02/09/23 Sr. Logistics Analyst Relationship Specialty Start Date End Date Jose Daniel Mane CNP [address] [place] [address] PCP - General Family Medicine 01/17/23 Jose Daniel Mane CIRCULAR SAW EDGE FUSER [address] [place] [address] Home Care Provider Family Medicine 02/05/23 Joanne Barrientos, VERA.CIRCULAR SAW EDGE FUSER [address] [place] [address] Referring Admitting 02/09/23 Mani Marinelli RN [address] [place], [place] [id number] Hogshead Mat Assembler Post Acute Care 02/09/23 Sr. Logistics Analyst Relationship Specialty Start Date End Date Jose Daniel Mane MELONY [address] [place] [address] PCP - General Family Medicine 01/17/23 Jose Daniel Mane CIRCULAR SAW EDGE FUSER [address] [place] [address] Home Care Provider Family Medicine 02/05/23 Joanne Barrientos, DESKTOP SUPPORT CONSULTANT.CIRCULAR SAW EDGE FUSER [address] [place], [place] [id number] Referring Admitting 02/09/23 Mani Marinelli, VANITA [address] [place] [address] Hogshead Mat Assembler Post Acute Care 02/09/23 Sr. Logistics Analyst Relationship Specialty Start Date End Date Jose Daniel ManeMELONY [address] [place] [address] PCP - General Family Medicine 01/17/23 NavneetJose Daniel CIRCULAR SAW EDGE FUSER [address] [place] [address] Home Care Provider Family Medicine 02/05/23 Joanne Barrientos, DESKTOP SUPPORT CONSULTANT.CIRCULAR SAW EDGE FUSER [address] [place] [address] Referring Admitting 02/09/23 Mani Marinelli RN [address] [place] [address] Hogshead Mat Assembler Post Acute Care 02/09/23 Sr. Logistics Analyst Relationship Specialty Start Date End Date Jose Daniel ManeMELONY [address] [place] [address] PCP - General Family Medicine 01/17/23 Jose Daniel Mane, CIRCULAR SAW EDGE FUSER [address] [place] [address] Home Care Provider Family Medicine 02/05/23 Joanne Barrientos APRN.CIRCULAR SAW EDGE FUSER [address] [place] [address] Referring Admitting 02/09/23 Mani Marinelli RN [address] [place] [address] Hogshead Mat Assembler Post Acute Care 02/09/23 Sr. Logistics Analyst Relationship Specialty Start Date End Date Jose Daniel ManeMELONY [address] [place] [address] PCP - General Family Medicine 01/17/23 NavneetJose Daniel CNP [address] [place] [address] Home Care Provider Family Medicine 02/05/23 Joanne Barrientos APRN.CIRCULAR SAW EDGE FUSER [address] [place] [address] Referring Admitting 02/09/23 Mani Mairnelli RN [address] [place] [address] Hogshead Mat Assembler Post Acute Care 02/09/23 Sr. Logistics Analyst Relationship Specialty Start Date End Date Jose Daniel ManeMELONY [address] [place] [address] PCP - General Family Medicine 01/17/23 NavneetJose Daniel CNP [address] [place] [address] Home Care Provider Family Medicine 02/05/23 Joanne Barrientos APRN.CIRCULAR SAW EDGE FUSER [address] [place] [address] Referring Admitting 02/09/23 Mani Marinelli RN [address] [place] [address] Hogshead Mat Assembler Post Acute Care 02/09/23 Sr. Logistics Analyst Relationship Specialty Start Date End Date Jose Daniel Mane CNP [address] [place] [address] PCP - General Family Medicine 01/17/23 Jose Daniel Mane CIRCULAR SAW EDGE FUSER [address] [place] [address] Home Care Provider Family Medicine 02/05/23 Joanne Barrientos, DESKTOP SUPPORT CONSULTANT.CIRCULAR SAW EDGE FUSER [address] [place] [address] Referring Admitting 02/09/23 Mani Marinelli RN [address] [place] [address] Hogshead Mat Assembler Post Acute Care 02/09/23 Sr. Logistics Analyst Relationship Specialty Start Date End Date Jose Daniel Mane CIRCULAR SAW EDGE FUSER [address] [place] [address] PCP - General Family Medicine 01/17/23 BaysideJose Daniel CIRCULAR SAW EDGE FUSER [address] [place] [address] Home Care Provider Family Medicine 02/05/23 Joanne Barrientos, DESKTOP SUPPORT CONSULTANT.CIRCULAR SAW EDGE FUSER [address] [place] [address] Referring Admitting 02/09/23 Mani Marinelli RN [address] [place], [place] [id number] Hogshead Mat Assembler Post Acute Care 02/09/23 Sr. Logistics Analyst Relationship Specialty Start Date End Date Jose Daniel Mane MELONY [address] [place] [address] PCP - General Family Medicine 01/17/23 Jose Daniel Mane CIRCULAR SAW EDGE FUSER [address] [place] [address] Home Care Provider Family Medicine 02/05/23 Joanne Barrientos, DESKTOP SUPPORT CONSULTANT.CIRCULAR SAW EDGE FUSER [address] [place], [place] [id number] Referring Admitting 02/09/23 Mani Marinelli, VANITA [address] [place] [address] Hogshead Mat Assembler Post Acute Care 02/09/23 Sr. Logistics Analyst Relationship Specialty Start Date End Date Jose Daniel ManeMELONY [address] [place] [address] PCP - General Family Medicine 01/17/23 Nav[place]et Jose Daniel CIRCULAR SAW EDGE FUSER [address] [place] [address] Home Care Provider Family Medicine 02/05/23 Joanne Barrientos, DESKTOP SUPPORT CONSULTANT.CIRCULAR SAW EDGE FUSER [address] [place] [address] Referring Admitting 02/09/23 Mani Marinelli RN [address] [place] [address] Hogshead Mat Assembler Post Acute Care 02/09/23 Sr. Logistics Analyst Relationship Specialty Start Date End Date Jose Daniel ManeMELONY [address] [place] [address] PCP - General Family Medicine 01/17/23 Jose Daniel Mane, CIRCULAR SAW EDGE FUSER [address] [place] [address] Home Care Provider Family Medicine 02/05/23 Joanne Barrientos APRN.CIRCULAR SAW EDGE FUSER [address] [place] [address] Referring Admitting 02/09/23 Mani Marinelli RN [address] [place] [address] Hogshead Mat Assembler Post Acute Care 02/09/23 Sr. Logistics Analyst Relationship Specialty Start Date End Date Jose Daniel ManeMELONY [address] [place] [address] PCP - General Family Medicine 01/17/23 NavneetJose Daniel CNP [address] [place] [address] Home Care Provider Family Medicine 02/05/23 Joanne Barrientos APRN.CIRCULAR SAW EDGE FUSER [address] [place] [address] Referring Admitting 02/09/23 Mani Marinelli RN [address] [place] [address] Hogshead Mat Assembler Post Acute Care 02/09/23 Sr. Logistics Analyst Relationship Specialty Start Date End Date Jose Daniel ManeMELONY [address] [place] [address] PCP - General Family Medicine 01/17/23 NavneetJose Daniel CNP [address] [facility] [place] [address] Home Care Provider Family Medicine 02/05/23 Joanne Barrientos APRN.CIRCULAR SAW EDGE FUSER [address] [place] [address] Referring Admitting 02/09/23 Mani Marinelli RN [address] [place] [address] Hogshead Mat Assembler Post Acute Care 02/09/23 Sr. Logistics Analyst Relationship Specialty Start Date End Date Jose Daniel Mane CNP [address] [place] [address] PCP - General Family Medicine 01/17/23 Jose Daniel Mane CIRCULAR SAW EDGE FUSER [address] [place] [address] Home Care Provider Family Medicine 02/05/23 Joanne Barrientos, DESKTOP SUPPORT CONSULTANT.CIRCULAR SAW EDGE FUSER [address] [place] [address] Referring Admitting 02/09/23 Mani Marinelli RN [address] [place] [address] Hogshead Mat Assembler Post Acute Care 02/09/23 Sr. Logistics Analyst Relationship Specialty Start Date End Date Jose Daniel Mane CNP [address] [place] [address] PCP - General Family Medicine 01/17/23 Jose Daniel Mane CIRCULAR SAW EDGE FUSER [address] [place] [address] Home Care Provider Family Medicine 02/05/23 Joanne Barrientos, DESKTOP SUPPORT CONSULTANT.CIRCULAR SAW EDGE FUSER [address] [place] [address] Referring Admitting 02/09/23 Mani Marinelli RN [address] [place], [place] [id number] Hogshead Mat Assembler Post Acute Care 02/09/23 Sr. Logistics Analyst Relationship Specialty Start Date End Date Jose Daniel Mane, DESKTOP SUPPORT CONSULTANT-MELONY [address] [place] [address] PCP - General 12/29/22 Sharla Stokes LPN [employer] It Security Analyst 02/12/23 Team Status: Inactive Member Role Status Dates Dr. Chinyere Quigley MD Primary Care Provider, Referr ing Provider Active Dung Moreland NP, ASSEMBLER CAMPER-C Attending Provider Active Team Status: Inactive Member Role Status Dates Dr. Chinyere Quigley MD Primary Care Provider Active JOSE DANIEL MANE ASSEMBLER CAMPER-C Attending Provider, Referring Pro vider Active Sr. Logistics Analyst Relationship Specialty Start Date End Date Jose Daniel ManeGUSTAVO [address] [place] [address] PCP - General 12/29/22 Sr. Logistics Analyst Relationship Specialty Start Date End Date Jose Daniel ManeGUSTAVO [address] [address] PCP - General 12/29/22 Sr. Logistics Analyst Relationship Specialty Start Date End Date Jose Daniel ManeGUSTAVO [address] [address] PCP - General 12/29/22 Source Comments (unrecognize d section and content) In the event this informatio n is protected by the Federal Confidentiality of Alcohol and Drug Abuse Patient Records regulations: The Federal rules restrict any use of the information to criminally investigate or prosecute any alcohol or drug abuse patient.[facility] AdministrationIn the event this information is protected by the Federal Confidentiality of Alcohol and Drug Abuse Patient Records regulations: The Federal rules restrict any use of the information to criminally investigate or prosecute any alcohol or drug abuse patient.[facility] AdministrationIn the event this information is protected by the Federal Confidentiality of Alcohol and Drug Abuse Patient Records regulations: The Federal rules restrict any use of the information to criminally investigate or prosecute any alcohol or drug abuse patient.[facility] AdministrationIn the event this information is protected by the Federal Confidentiality of Alcohol and Drug Abuse Patient Records regulations: The Federal rules restrict any use of the information to criminally investigate or prosecute any alcohol or drug abuse patient.[facility] AdministrationIn the event this information is protected by the Federal Confidentiality of Alcohol and Drug Abuse Patient Records regulations: The Federal rules restrict any use of the information to criminally investigate or prosecute any alcohol or drug abuse patient.[facility] AdministrationIn the event this information is protected by the Federal Confidentiality of Alcohol and Drug Abuse Patient Records regulations: The Federal rules restrict any use of the information to criminally investigate or prosecute any alcohol or drug abuse patient.[facility] AdministrationIn the event this information is protected by the Federal Confidentiality of Alcohol and Drug Abuse Patient Records regulations: The Federal rules restrict any use of the information to criminally investigate or prosecute any alcohol or drug abuse patient.[facility] AdministrationIn the event this information is protected by the Federal Confidentiality of Alcohol and Drug Abuse Patient Records regulations: The Federal rules restrict any use of the information to criminally investigate or prosecute any alcohol or drug abuse patient.[facility] AdministrationIn the event this information is protected by the Federal Confidentiality of Alcohol and Drug Abuse Patient Records regulations: The Federal rules restrict any use of the information to criminally investigate or prosecute any alcohol or drug abuse patient.[facility] AdministrationIn the event this information is protected by the Federal Confidentiality of Alcohol and Drug Abuse Patient Records regulations: The Federal rules restrict any use of the information to criminally investigate or prosecute any alcohol or drug abuse patient.[facility] AdministrationIn the event this information is protected by the Federal Confidentiality of Alcohol and Drug Abuse Patient Records regulations: The Federal rules restrict any use of the information to criminally investigate or prosecute any alcohol or drug abuse patient.[facility] AdministrationIn the event this information is protected by the Federal Confidentiality of Alcohol and Drug Abuse Patient Records regulations: The Federal rules restrict any use of the information to criminally investigate or prosecute any alcohol or drug abuse patient.[facility] AdministrationIn the event this information is protected by the Federal Confidentiality of Alcohol and Drug Abuse Patient Records regulations: The Federal rules restrict any use of the information to criminally investigate or prosecute any alcohol or drug abuse patient.[facility] AdministrationIn the event this information is protected by the Federal Confidentiality of Alcohol and Drug Abuse Patient Records regulations: The Federal rules restrict any use of the information to criminally investigate or prosecute any alcohol or drug abuse patient.[facility] AdministrationIn the event this information is protected by the Federal Confidentiality of Alcohol and Drug Abuse Patient Records regulations: The Federal rules restrict any use of the information to criminally investigate or prosecute any alcohol or drug abuse patient.[facility] AdministrationIn the event this information is protected by the Federal Confidentiality of Alcohol and Drug Abuse Patient Records regulations: The Federal rules restrict any use of the information to criminally investigate or prosecute any alcohol or drug abuse patient.[facility] AdministrationIn the event this information is protected by the Federal Confidentiality of Alcohol and Drug Abuse Patient Records regulations: The Federal rules restrict any use of the information to criminally investigate or prosecute any alcohol or drug abuse patient.[facility] AdministrationIn the event this information is protected by the Federal Confidentiality of Alcohol and Drug Abuse Patient Records regulations: The Federal rules restrict any use of the information to criminally investigate or prosecute any alcohol or drug abuse patient.[facility] AdministrationIn the event this information is protected by the Federal Confidentiality of Alcohol and Drug Abuse Patient Records regulations: The Federal rules restrict any use of the information to criminally investigate or prosecute any alcohol or drug abuse patient.[facility] AdministrationIn the event this information is protected by the Federal Confidentiality of Alcohol and Drug Abuse Patient Records regulations: The Federal rules restrict any use of the information to criminally investigate or prosecute any alcohol or drug abuse patient.[facility] AdministrationIn the event this information is protected by the Federal Confidentiality of Alcohol and Drug Abuse Patient Records regulations: The Federal rules restrict any use of the information to criminally investigate or prosecute any alcohol or drug abuse patient.[facility] AdministrationIn the event this information is protected by the Federal Confidentiality of Alcohol and Drug Abuse Patient Records regulations: The Federal rules restrict any use of the information to criminally investigate or prosecute any alcohol or drug abuse patient.[facility] AdministrationIn the event this information is protected by the Federal Confidentiality of Alcohol and Drug Abuse Patient Records regulations: The Federal rules restrict any use of the information to criminally investigate or prosecute any alcohol or drug abuse patient.[facility] AdministrationIn the event this information is protected by the Federal Confidentiality of Alcohol and Drug Abuse Patient Records regulations: The Federal rules restrict any use of the information to criminally investigate or prosecute any alcohol or drug abuse patient.[facility] AdministrationIn the event this information is protected by the Federal Confidentiality of Alcohol and Drug Abuse Patient Records regulations: The Federal rules restrict any use of the information to criminally investigate or prosecute any alcohol or drug abuse patient.[facility] AdministrationIn the event this information is protected by the Federal Confidentiality of Alcohol and Drug Abuse Patient Records regulations: The Federal rules restrict any use of the information to criminally investigate or prosecute any alcohol or drug abuse patient.[facility] AdministrationIn the event this information is protected by the Federal Confidentiality of Alcohol and Drug Abuse Patient Records regulations: The Federal rules restrict any use of the information to criminally investigate or prosecute any alcohol or drug abuse patient.[facility] AdministrationIn the event this information is protected by the Federal Confidentiality of Alcohol and Drug Abuse Patient Records regulations: The Federal rules restrict any use of the information to criminally investigate or prosecute any alcohol or drug abuse patient.[facility] AdministrationIn the event this information is protected by the Federal Confidentiality of Alcohol and Drug Abuse Patient Records regulations: The Federal rules restrict any use of the information to criminally investigate or prosecute any alcohol or drug abuse patient.[facility] AdministrationIn the event this information is protected by the Federal Confidentiality of Alcohol and Drug Abuse Patient Records regulations: The Federal rules restrict any use of the information to criminally investigate or prosecute any alcohol or drug abuse patient.[facility] AdministrationIn the event this information is protected by the Federal Confidentiality of Alcohol and Drug Abuse Patient Records regulations: The Federal rules restrict any use of the information to criminally investigate or prosecute any alcohol or drug abuse patient.[facility] AdministrationIn the event this information is protected by the Federal Confidentiality of Alcohol and Drug Abuse Patient Records regulations: The Federal rules restrict any use of the information to criminally investigate or prosecute any alcohol or drug abuse patient.[facility] AdministrationIn the event this information is protected by the Federal Confidentiality of Alcohol and Drug Abuse Patient Records regulations: The Federal rules restrict any use of the information to criminally investigate or prosecute any alcohol or drug abuse patient.[facility] AdministrationIn the event this information is protected by the Federal Confidentiality of Alcohol and Drug Abuse Patient Records regulations: The Federal rules restrict any use of the information to criminally investigate or prosecute any alcohol or drug abuse patient.[facility] AdministrationIn the event this information is protected by the Federal Confidentiality of Alcohol and Drug Abuse Patient Records regulations: The Federal rules restrict any use of the information to criminally investigate or prosecute any alcohol or drug abuse patient.[facility] AdministrationIn the event this information is protected by the Federal Confidentiality of Alcohol and Drug Abuse Patient Records regulations: The Federal rules restrict any use of the information to criminally investigate or prosecute any alcohol or drug abuse patient.[facility] AdministrationIn the event this information is protected by the Federal Confidentiality of Alcohol and Drug Abuse Patient Records regulations: The Federal rules restrict any use of the information to criminally investigate or prosecute any alcohol or drug abuse patient.[facility] AdministrationIn the event this information is protected by the Federal Confidentiality of Alcohol and Drug Abuse Patient Records regulations: The Federal rules restrict any use of the information to criminally investigate or prosecute any alcohol or drug abuse patient.[facility] AdministrationIn the event this information is protected by the Federal Confidentiality of Alcohol and Drug Abuse Patient Records regulations: The Federal rules restrict any use of the information to criminally investigate or prosecute any alcohol or drug abuse patient.[facility] AdministrationIn the event this information is protected by the Federal Confidentiality of Alcohol and Drug Abuse Patient Records regulations: The Federal rules restrict any use of the information to criminally investigate or prosecute any alcohol or drug abuse patient.[facility] AdministrationIn the event this information is protected by the Federal Confidentiality of Alcohol and Drug Abuse Patient Records regulations: The Federal rules restrict any use of the information to criminally investigate or prosecute any alcohol or drug abuse patient.[facility] FOR RECORDS PERTAINING TO PATIENTS WHO ARE OR HAVE BEEN ENROLLED IN A CHEMICAL DEPENDENCY/SUBSTANCEABUSE PROGRAM, SOME INFORMATION MAY BE OMITTED. This clinical summary was aggregated from multiple sources. Caution should be exercised in using it in the provision of clinical care. This summary normalizes information from multiple sources, and as a consequence, information in this document may materially change the coding, format and clinical context of patient data. In addition, data may be omitted in some cases. CLINICAL DECISIONS SHOULD BE BASED ON THE PRIMARY CLINICAL RECORDS. [facility]. provides no warranty or guarantee of the accuracy or completeness of information in this document.
[2025-04-17 10:13] LABS: Hematocrit 39.2 % (37-47); Hemoglobin 13.1 g/dL (12.0-15.0); Mean Corp Hgb Conc 33.4 g/dL (32-36); Mean Corpuscular Volume 94.5 fL (81-99); Mean Platelet Vol. 10.5 fl (6.2-12.0); Platelet Count 210 K/mm3 (150-450); RBC Distribution Width CV 11.9 % (11.6-14.6); RBC Distribution Width SD 41.7 fl (35.1-43.9); Red Blood Count 4.15 M/mm3 (4.2-5.4); White Blood Count 6.4 K/mm3 (4.4-11.0)
[2025-04-17 10:33] LABS: AST(SGOT) 18 U/L (<=31); Alanine Aminotransfer ALT/SGPT 10 U/L (<=34); Albumin, Serum 4.2 g/dL (3.4-4.8); Alkaline Phosphatase 64 U/L (35-104); Anion Gap 8 (7-18); BUN 13 mg/dL (4-19); BUN/Creat Ratio 18.4 RATIO (10-20); Calcium,Total 9.5 mg/dL (7.6-11.0); Carbon Dioxide 33.9 mmol/L (20.0-29.0); Chloride 96 mmol/L (96-106); Cholesterol 147 mg/dL (<=200); Globulin 3.0 g/dL (2.2-4.2); Glucose 92 mg/dL (70-99); Low Density Lipoprotein Calc. 80 mg/dL; Potassium 4.0 mmol/L (3.5-5.1); Triglycerides 112 mg/dL; Very Low Density Lipoprotein 22 mg/dL (5-40); cholesterol:hdl ratio screen 3.15
== END | disposition home or self-care (01) ==
LOC: MTLAB 07:36
PROVIDERS: PCP Family Medicine; Referring Provider Nurse Practitioner Family; Visit Provider Nurse Practitioner Family
DX: I10 Essential (primary) hypertension (principal); E78.2 Mixed hyperlipidemia; R73.03 Prediabetes
CPT/HCPCS: 36415; 80053; 80061; 83036; 85027